=== PATIENT | female | born 1980 | race Hispanic/Latino ===

== ENCOUNTER 2018-07-27 21:42 | Emergency (ER) | payer SELFPAY ==
[2018-07-27 22:30] LABS: Urine Blood NEGATIVE (NEG); Urine Glucose NEGATIVE (NEG); Urine Protein NEGATIVE (NEG)
[2018-07-27] MEDS ORDERED: NA CHLORIDE 0.9% 1,000 ML ONE (22:45)
[2018-07-27 22:48] LABS: Absolute Lymphocytes (CBC) 1.4 K/uL (0.7-4.9); Absolute Monocytes 0.5 K/uL (0.1-1.3); Absolute Neutrophil 4.3 K/uL (1.8-8.0); Basophils % 0.8 % (0-1.3); Eosinophils % 1.1 % (0-4.4); Hematocrit 26.1 % (36.0-45.0); Lymphocytes % 21.4 % (15.3-44.8); MPV 8.4 fL (7.6-11.3); Monocytes % 8.5 % (3.3-12.3); RBC Red Blood Cell Count 3.62 M/uL (3.86-4.86)
[2018-07-27 22:58] LABS: ALT/SGPT 36 U/L (12-78); AST/SGOT 22 U/L (15-37); Albumin 3.9 g/dL (3.4-5.0); Alkaline Phosphatase 75 U/L (45-117); BUN Blood Urea Nitrogen 10 mg/dL (7-18); Bicarbonate 27 mmol/L (21-32); Bilirubin Direct < 0.1 mg/dL (0-0.2); Bilirubin Total 0.1 mg/dL (0.2-1.0); Glucose Level 89 mg/dL (74-106); Lipase 157 U/L (73-393); Potassium 3.5 mmol/L (3.5-5.1); Protein, Total 7.1 g/dL (6.4-8.2); Sodium Level 142 mmol/L (136-145)
[2018-07-27] MEDS ORDERED: HYDROCODONE/APAP 5/325 MG TAB ONE (23:15)
[2018-07-28] MEDS ORDERED: MORPHINE 2 MG/ML SYR ONE (02:52)
--- NOTE | 2018-07-28 03:14 | EDPHYS ---
Physician Documentation [facility] Name: Maribell Krishnamurthy Age: 37 yrs Sex: Female : 1980 Arrival Date: 07/27/2018 Time: 21:45 Bed 20 Private MD: ED Physician Mele Brooks HPI: 07/27 22:53 This 37 yrs old Female presents to ER via Ambulatory with complaints of Flank pkl Pain, Pain With Urination, Rectal Bleeding. 22:53 The patient complains of pain in the right flank. The pain radiates to the right lower pkl quadrant. Onset: The symptoms/episode began/occurred today. Associated signs and symptoms: Pertinent positives: blood in stool. 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 - Social history:: Smoking status: Patient/guardian denies using tobacco. - Ebola Screening: : No symptoms or risks identified at this time. ROS: 22:53 Eyes: Negative for injury, pain, redness, and discharge, ENT: Negative for injury, pkl pain, and discharge, Neck: Negative for injury, pain, and swelling, Cardiovascular: Negative for chest pain, palpitations, and edema, Respiratory: Negative for shortness of breath, cough, wheezing, and pleuritic chest pain, Abdomen/GI: Negative for abdominal pain, nausea, vomiting, diarrhea, and constipation. 22:53 Back: Positive for flank pain, on the right. 22:53 : Positive for urinary symptoms, burning with urination. 22:53 MS/extremity: Negative for acute changes. 22:53 Skin: Negative for rash. 22:53 Neuro: Negative for altered mental status. Exam: 22:53 Head/Face: Normocephalic, atraumatic. Eyes: Pupils equal round and reactive to light, pkl extra-ocular motions intact. Lids and lashes normal. Conjunctiva and sclera are non-icteric and not injected. Cornea within normal limits. Periorbital areas with no swelling, redness, or edema. ENT: Nares patent. No nasal discharge, no septal abnormalities noted. Tympanic membranes are normal and external auditory canals are clear. Oropharynx with no redness, swelling, or masses, exudates, or evidence of obstruction, uvula midline. Mucous membranes moist. Neck: Trachea midline, no thyromegaly or masses palpated, and no cervical lymphadenopathy. Supple, full range of motion without nuchal rigidity, or vertebral point tenderness. No Meningismus. Chest/axilla: Normal chest wall appearance and motion. Nontender with no deformity. No lesions are appreciated. Cardiovascular: Regular rate and rhythm with a normal S1 and S2. No gallops, murmurs, or rubs. Normal PMI, no JVD. No pulse deficits. Respiratory: Lungs have equal breath sounds bilaterally, clear to auscultation and percussion. No rales, rhonchi or wheezes noted. No increased work of breathing, no retractions or nasal flaring. Abdomen/GI: Soft, non-tender, with normal bowel sounds. No distension or tympany. No guarding or rebound. No evidence of tenderness throughout. Back: No spinal tenderness. No costovertebral tenderness. Full range of motion. Skin: Warm, dry with normal turgor. Normal color with no rashes, no lesions, and no evidence of cellulitis. MS/ Extremity: Pulses equal, no cyanosis. Neurovascular intact. Full, normal range of motion. Neuro: Awake and alert, GCS 15, oriented to person, place, time, and situation. Cranial nerves II-XII grossly intact. Motor strength 5/5 in all extremities. Sensory grossly intact. Cerebellar exam normal. Normal gait. 07/28 03:11 Abdomen/GI: Rectal exam: Stool: guaiac negative, the exam is chaperoned by the nurse. [facility] Vital Signs: 07/27 21:54 Pulse 100; Resp 18; Temp 97.6; Pulse Ox 98% on R/A; Weight 63.5 kg; Height 5 ft. 0 in. la1 (152.40 cm); 21:55 BP 135 / 85; la1 23:01 BP 120 / 79; Pulse 87; Resp 16 S; Pulse Ox 98% on R/A; jd3 07/28 00:30 BP 112 / 73; Pulse 80; Resp 16 S; Pulse Ox 99% on R/A; jd3 02:50 BP 121 / 64; Pulse 87; Resp 16 S; Pulse Ox 98% on R/A; jd3 07/27 21:54 Body Mass Index 27.34 (63.50 kg, 152.40 cm) la1 MDM: 07/27 21:58 Patient medically screened. pkl 07/28 03:11 Data reviewed: vital signs, nurses notes, lab test result(s), radiologic studies, CT pkl scan. 03:15 ED course: Patient advised to follow up with [facility] regarding blood in stool. pkl Advised to take iron pills for her anemia. Patient understood instructions. 07/27 22:15 Order name: Basic Metabolic Panel; Complete Time: 00:23 pkl 07/27 22:15 Order name: CBC with Diff; Complete Time: 00:23 pkl 07/27 22:15 Order name: Creatinine for Radiology; Complete Time: 00:23 pkl 07/27 22:15 Order name: Hepatic Function; Complete Time: 00:23 pkl 07/27 22:15 Order name: Lipase; Complete Time: 00:23 pkl 07/27 22:26 Order name: Urine Dipstick--Ancillary (enter results); Complete Time: 22:51 [facility] 07/27 22:15 Order name: IV Saline Lock; Complete Time: 22:32 pk 07/27 22:15 Order name: Labs collected and sent; Complete Time: 22:32 pk 07/27 22:26 Order name: Urine --Ancillary (enter results) [facility] 07/28 00:24 Order name: CT Abd/Pelvis - W/Contrast pkl Administered Medications: 07/27 22:37 Drug: NS 0.9% 1000 ml Route: IV; Rate: 1000 ml; Site: right antecubital; [facility] 07/28 01:51 Follow up: Response: No adverse reaction; IV Status: Completed infusion [facility] 07/27 23:06 Drug: [place] 5 mg-325 mg 1 tabs Route: PO; jd3 07/28 01:50 Follow up: Response: No adverse reaction j 02:45 Drug: morphine 2 mg Route: IVP; Site: right antecubital; jd3 03:30 Follow up: Response: No adverse reaction j Disposition: 07/28/18 03:14 Discharged to Home. Impression: Right flank pain. Rectal bleeding. Anemia. - Condition is Stable. - Prescriptions for Tylenol- Codeine #3 300-30 mg Oral Tablet - take 1 tablet by ORAL route every 8 hours As needed; 15 tablet. - Medication Reconciliation Form, Thank You Letter, Antibiotic Education, Prescription Opioid Use form. - Follow up: Samuel Montoya MD; When: 2 - 3 days; Reason: Re-evaluation by your physician. - Problem is new. - Symptoms have improved. Signatures: Dispatcher [employer] EDWY Mele Brooks MD MD pkl Basilio Gannon RN RN la1 Derek Faye RN RN jd3 Corrections: (The following items were deleted from the chart) 03:32 03:14 07/28/2018 03:14 Discharged to Home. Impression: Right flank pain. Rectal jd3 bleeding. Anemia. Condition is Stable. Forms are Medication Reconciliation Form, Thank You Letter, Antibiotic Education, Prescription Opioid Use. Follow up: Samuel Montoya; When: 2 - 3 days; Reason: Re-evaluation by your physician. Problem is new. Symptoms have improved. pkl
--- NOTE | 2018-07-28 03:14 | ER ---
Nurse's Notes [facility] Name: Maribell Krishnamurthy Age: 37 yrs Sex: Female : 1980 Arrival Date: 07/27/2018 Time: 21:45 Bed 20 Private MD: Diagnosis: Right flank pain. Rectal bleeding. Anemia Presentation: 07/27 21:51 Presenting complaint: Patient states: Sharp pain right above my right hip and it renteria la1 when I pee. I am also having painless bright red blood in my stool, I have had to have a transfusion due to hemmoroids before. Pt denies vomiting/diarrhea. Transition of care: patient was not received from another setting of care. Onset of symptoms was July 27, 2018. Risk Assessment: Do you want to hurt yourself or someone else? Patient reports no desire to harm self or others. Initial Sepsis Screen: Does the patient meet any 2 criteria?. Initial Sepsis Screen: Does the patient have a suspected source of infection? No. Patient's initial sepsis screen is negative. Care prior to arrival: None. 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 - Social history:: Smoking status: Patient/guardian denies using tobacco. - Ebola Screening: : No symptoms or risks identified at this time. Screenin:56 Abuse screen: Denies threats or abuse. Nutritional screening: No deficits noted. jd3 Tuberculosis screening: No symptoms or risk factors identified. Fall Risk Ambulatory Aid- None/Bed Rest/Nurse Assist (0 pts). Gait- Normal/Bed Rest/Wheelchair (0 pts) Mental Status- Oriented to own ability (0 pts). Total Tejada Fall Scale indicates No Risk (0-24 pts). Assessment: 22:05 General: Appears in no apparent distress. uncomfortable, Behavior is calm, cooperative, jd3 appropriate for age. Pain: Complains of pain in anterior aspect of right lateral abdomen and right lower quadrant Quality of pain is described as aching. Neuro: Level of Consciousness is awake, alert, obeys commands, Oriented to person, place, time, situation. Cardiovascular: Denies chest pain, Capillary refill < 3 seconds Patient's skin is warm and dry. Respiratory: Airway is patent Respiratory effort is even, unlabored, Respiratory pattern is regular, symmetrical, Denies shortness of breath. GI: Abdomen is round non-distended, Bowel sounds present X 4 quads. Abd is soft and non tender X 4 quads. Reports lower abdominal pain, bloody stool, Patient currently denies nausea, vomiting. : Reports burning with urination. EENT: No signs and/or symptoms were reported regarding the EENT system. Derm: Skin is intact, Skin is dry, Skin is normal, Skin temperature is warm. Musculoskeletal: Circulation, motion, and sensation intact. Range of motion: intact in all extremities. 23:02 Reassessment: Patient appears in no apparent distress at this time. Patient and/or jd3 family updated on plan of care and expected duration. Pain level reassessed. Patient is alert, oriented x 3, equal unlabored respirations, skin warm/dry/pink. 07/28 00:15 Reassessment: Patient appears in no apparent distress at this time. Patient and/or jd3 family updated on plan of care and expected duration. Pain level reassessed. Patient is alert, oriented x 3, equal unlabored respirations, skin warm/dry/pink. 00:30 Reassessment: Patient appears in no apparent distress at this time. Patient and/or jd3 family updated on plan of care and expected duration. Pain level reassessed. Patient is alert, oriented x 3, equal unlabored respirations, skin warm/dry/pink. Patient states feeling better. 01:52 Reassessment: Patient appears in no apparent distress at this time. Patient and/or jd3 family updated on plan of care and expected duration. Pain level reassessed. Patient is alert, oriented x 3, equal unlabored respirations, skin warm/dry/pink. Patient states feeling better. 02:50 Reassessment: Patient appears in no apparent distress at this time. Patient and/or jd3 family updated on plan of care and expected duration. Pain level reassessed. Patient is alert, oriented x 3, equal unlabored respirations, skin warm/dry/pink. 03:29 Reassessment: Patient appears in no apparent distress at this time. Patient and/or jd3 family updated on plan of care and expected duration. Pain level reassessed. Patient is alert, oriented x 3, equal unlabored respirations, skin warm/dry/pink. pt reported understanding of discharge instructions. Patient states feeling better. Vital Signs: 07/27 21:54 Pulse 100; Resp 18; Temp 97.6; Pulse Ox 98% on R/A; Weight 63.5 kg; Height 5 ft. 0 in. la1 (152.40 cm); 21:55 BP 135 / 85; la1 23:01 BP 120 / 79; Pulse 87; Resp 16 S; Pulse Ox 98% on R/A; jd3 07/28 00:30 BP 112 / 73; Pulse 80; Resp 16 S; Pulse Ox 99% on R/A; jd3 02:50 BP 121 / 64; Pulse 87; Resp 16 S; Pulse Ox 98% on R/A; jd3 07/27 21:54 Body Mass Index 27.34 (63.50 kg, 152.40 cm) la1 ED Course: 07/27 21:45 Patient arrived in ED. am2 21:53 Triage completed. la1 21:53 Arm band placed on left wrist. la1 21:55 Derek Faye, DANETTE is Primary Nurse. jd3 21:57 Patient has correct armband on for positive identification. Bed in low position. Call jd3 light in reach. Side rails up X 1. Adult w/ patient. 21:58 Mele Brooks MD is Attending Physician. pkl 22:30 Inserted saline lock: 20 gauge in right antecubital area, using aseptic technique. jd3 Blood collected. 07/28 02:[address] via wheelchair. kw1 02:16 CT completed. Patient tolerated procedure well. Patient moved back from CT. kw1 02:41 CT Abd/Pelvis - W/Contrast In Process Unspecified. EDMS 03:11 Served as a neuropsychiatrist during rectal exam. aa1 03:13 Samuel Montoya MD is Referral Physician. pkl 03:29 IV discontinued, intact, bleeding controlled, No redness/swelling at site. Pressure jd3 dressing applied. Administered Medications: 07/27 22:37 Drug: NS 0.9% 1000 ml Route: IV; Rate: 1000 ml; Site: right antecubital; jd3 07/28 01:51 Follow up: Response: No adverse reaction; IV Status: Completed infusion jd3 07/27 23:06 Drug: [place] 5 mg-325 mg 1 tabs Route: PO; jd3 07/28 01:50 Follow up: Response: No adverse reaction jd3 02:45 Drug: morphine 2 mg Route: IVP; Site: right antecubital; jd3 03:30 Follow up: Response: No adverse reaction jd3 Outcome: 03:14 Discharge ordered by . bernard 03:28 Discharged to home ambulatory, with family. jd3 03:28 Condition: stable 03:28 Discharge instructions given to patient, Instructed on discharge instructions, follow up and referral plans. medication usage, Demonstrated understanding of instructions, follow-up care, medications, Prescriptions given X 1. 03:32 Patient left the ED. jd3 Signatures: Dispatcher [employer] EDRaegan Freitas, RN RN aa1 Mele Brooks MD MD pkl Attema, Lee, RN RN la1 Moreno, Amanda am2 Davies, Jonathon, RN RN jd3 Jacy hCan kw1
[2018-07-28 03:41] VITALS: TEMP 97.6
[2018-07-28 03:46] VITALS: BP 121/64; O2SAT 98
--- NOTE | 2018-07-29 11:34 | RAD REPORT ---
EXAM DESCRIPTION: CT - Abdomen Pelvis W Contrast - 07/28/2018 6:43 am CLINICAL HISTORY: The patient is 37 years old and is Female; ABD PAIN TECHNIQUE: Axial computed tomography images of the abdomen and pelvis with intravenous contrast. Sagittal and co aura reformatted images were created and reviewed. This CT exam was performed using one or more of t he following dose reduction techniques: Automated exposure control, adjustment of the mA and/or kV ac cording to patient size, and/or use of iterative reconstruction technique. COMPARISON: CT of the abdomen and pelvis February 09, 2017. FINDINGS: Lung bases: Unremarkable. No mass. No consolidation. ABDOMEN: Liver: Unremarkable. No mass. Gallbladder and bile ducts: The gallbladder is contracted. Pancreas: O ductal dilation. No mass. Spleen: Unremarkable. Adrenals: Unremarkable. No mass. Kidneys and ureters:Unremarkable. No solid mass. No hydronephrosis. Stomach and bowel: The stomach is distended with food contents. The small bowel is normal in caliber. Stool is present throughout the colon. There is no mucosal thickening or evidence of bowel obstructi on. PELVIS: Appendix:The appendix is normal in caliber without surrounding inflammation. Bladder: Unremarkable. No mass. Reproductive: The ovaries are unremarkable. 2 small hyperattenuating foci are noted within the inferi or aspect of the vaginal canal, the largest of which measures 9 mm. These were present on prior exam and may be secondary to tiny cysts with sebaceous contents. ABDOMEN and PELVIS: Intraperitoneal space: Free fluid is present within the pelvis which is likely physiologic. No free air. Bones/joints: No acute fracture. Soft tissues: Unremarkable. Vasculature:Unremarkable. No abdominal aortic aneurysm. Lymph nodes: Unremarkable. No enlarged lymph nodes. IMPRESSION: No acute findings on this contrasted CT of the abdomen and pelvis to explain the patient 's symptoms. 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 The interpreting radiologist is f ully responsible for the content of the report.
== END 2018-07-28 03:32 | disposition home or self-care (01) ==
LOC: ER 21:42
DX: R10.9 Unspecified abdominal pain (principal); K62.5 Hemorrhage of anus and rectum; R30.0 Dysuria; D64.9 Anemia, unspecified
CPT/HCPCS: 36415; 74177; 80048; 80076; 81003; 81025; 83690; 85025; 96361; 96374; 99284; J2270; J7030; Q9967

== ENCOUNTER 2019-06-26 04:08 | Emergency (ER) | payer MEDICAID, SELFPAY ==
--- OUTSIDE RECORDS SUMMARY | 2019-06-26 04:10 | XMS REPORT ---
:1980 [facility] Address [facility] [place] [address] [place] [id number] Care Team Providers Name Role Phone Unavailable Unavailable Unavailable Problems This patient has no known problems. Allergies, Adverse Reactions, Alerts This patient has no known allergies or adverse reactions. Medications This patient has no known medications.
[2019-06-26] MEDS ORDERED: KETOROLAC 30 MG/ML INJ ONE (04:41)
[2019-06-26] MEDS ORDERED: PHENAZOPYRIDINE 100MG TAB PO ONE (04:41)
[2019-06-26] MEDS ORDERED: NITROFURAN MACRO 100 MG CAP PO ONE (04:41)
--- NOTE | 2019-06-26 04:44 | ER ---
Nurse's Notes [facility] Name: Maribell Krishnamurthy Age: 38 yrs Sex: Female : 1980 Arrival Date: 06/26/2019 Time: 04:09 Bed 8 Private MD: Diagnosis: Urinary tract infection, site not specified Presentation: 06/26 04:29 Presenting complaint: Patient states: Pain with urination that began yesterday, pain lp1 worse this morning; States taking Advil with no relief; States similar symptoms with previous UTI, intermittent pain to RLQ. Transition of care: patient was not received from another setting of care. Onset of symptoms was June 25, 2019. Risk Assessment: Do you want to hurt yourself or someone else? Patient reports no desire to harm self or others. Initial Sepsis Screen: Does the patient meet any 2 criteria? No. Patient's initial sepsis screen is negative. Does the patient have a suspected source of infection? No. Patient's initial sepsis screen is negative. Care prior to arrival: None. 04:29 Method Of Arrival: Ambulatory 1 04:29 Acuity: NUSRAT 3 lp1 04:32 Presenting complaint:. Transition of care: patient was not received from another setting of care. Onset of symptoms was June 26, 2019. Risk Assessment: Do you want to hurt yourself or someone else? Patient reports no desire to harm self or others. Initial Sepsis Screen: Does the patient meet any 2 criteria? No. Patient's initial sepsis screen is negative. Does the patient have a suspected source of infection? No. Patient's initial sepsis screen is negative. Care prior to arrival: None. 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 - Social history:: Smoking status: Patient/guardian denies using tobacco. - Ebola Screening: : No symptoms or risks identified at this time. Screenin:32 Abuse screen: Denies threats or abuse. Nutritional screening: No deficits noted. vc Tuberculosis screening: No symptoms or risk factors identified. Fall Risk None identified. Assessment: 04:33 General: Appears in no apparent distress. uncomfortable, Behavior is calm, cooperative, vc appropriate for age. Pain: Complains of pain in Pain with urination. 04:50 General:. Neuro: Level of Consciousness is awake, alert, obeys commands, Oriented to vc person, place, time. Cardiovascular: Capillary refill < 3 seconds. Respiratory: Airway is patent Respiratory effort is even, unlabored. GI: No signs and/or symptoms were reported involving the gastrointestinal system. : Reports burning with urination, since last week, the pain became worse today. "The pain is so bad that I'm afraid to go pee". EENT: No signs and/or symptoms were reported regarding the EENT system. Derm: Skin is intact, is healthy with good turgor. Musculoskeletal: Circulation, motion, and sensation intact. Range of motion: intact in all extremities. Vital Signs: 04:33 BP 155 / 95; Pulse 71; Resp 18; Temp 97.5(O); Pulse Ox 100% on R/A; Weight 67.13 kg lp1 (R); Height 5 ft. 0 in. (152.40 cm); Pain 10/10; 04:33 Body Mass Index 28.90 (67.13 kg, 152.40 cm) lp1 ED Course: 04:09 Patient arrived in ED. ds1 04:24 Ga Aguila MD is Attending Physician. tw4 04:26 Elmira Trinh RN is Primary Nurse. vc 04:33 Triage completed. lp1 04:34 Arm band placed on. vc 04:36 Patient has correct armband on for positive identification. Placed in gown. lp1 04:53 No provider procedures requiring assistance completed. Patient did not have IV access vc during this emergency room visit. Administered Medications: 04:49 Drug: TORadol 60 mg Route: IM; Site: right deltoid; vc 05:10 Follow up: Response: No adverse reaction; Pain is decreased vc 04:50 Drug: Pyridium 200 mg Route: PO; vc 05:10 Follow up: Response: No adverse reaction vc 04:50 Drug: Nitrofurantoin 100 mg Route: PO; vc 05:10 Follow up: Response: No adverse reaction vc Outcome: 04:43 Discharge ordered by . teri 05:13 Discharged to home ambulatory. vc 05:13 Condition: improved 05:13 Discharge instructions given to patient, Instructed on discharge instructions, follow up and referral plans. medication usage, Demonstrated understanding of instructions, follow-up care, medications, Prescriptions given X 3. 05:14 Patient left the ED. jb4 Addendum: 06/29/2019 09:28 Addendum: Culture Results: Positive urine culture. No further action required. Bacteria s s sensitive to prescribed antibiotic. Signatures: Vale Arrington ds1 Zeny Min, RN RN ss Susan Urias RN RN lp1 Haroon Morgan RN RN jb4 Ga Aguila MD MD tw4 Elmira Trinh RN RN vc Corrections: (The following items were deleted from the chart) 06/26 04:33 04:32 Acuity: NUSRAT 4 vc vc 04:52 04:33 General: Appears in no apparent distress. uncomfortable, Behavior is calm, vc cooperative, appropriate for age, vc
--- NOTE | 2019-06-26 04:44 | EDPHYS ---
Physician Documentation [facility] Name: Maribell Krishnamurthy Age: 38 yrs Sex: Female : 1980 Arrival Date: 06/26/2019 Time: 04:09 Bed 8 Private MD: ED Physician Ga Aguila HPI: 06/26 04:38 This 38 yrs old Female presents to ER via Ambulatory with complaints of tw4 Urinary Frequency, Pain With Urination. 04:38 The patient presents with urinary symptoms, dysuria, frequency. Modifying factors: The tw4 symptoms are alleviated by nothing, the symptoms are aggravated by nothing. Severity of symptoms: 1 week(s) ago, and became worse yesterday, At their worst the symptoms were moderate. The patient has not experienced similar symptoms in the past. 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 - Social history:: Smoking status: Patient/guardian denies using tobacco. - Ebola Screening: : No symptoms or risks identified at this time. ROS: 04:38 Positive for urinary symptoms, flank pain, urinary frequency, Negative for flank tw4 pain, burning with urination, difficulty urinating, bladder incontinence, foul smelling urine, vaginal bleeding, vaginal discharge, vaginal itching, menstrual abnormality. 04:38 Constitutional: Negative for fever, chills, and weight loss, Eyes: Negative for injury, pain, redness, and discharge, ENT: Negative for injury, pain, and discharge, Neck: Negative for injury, pain, and swelling, Cardiovascular: Negative for chest pain, palpitations, and edema, Respiratory: Negative for shortness of breath, cough, wheezing, and pleuritic chest pain, Abdomen/GI: Negative for abdominal pain, nausea, vomiting, diarrhea, and constipation, Back: Negative for injury and pain, MS/Extremity: Negative for injury and deformity, Skin: Negative for injury, rash, and discoloration, Neuro: Negative for headache, weakness, numbness, tingling, and seizure. Exam: 04:38 Constitutional: This is a well developed, well nourished patient who is awake, alert, tw4 and in no acute distress. Head/Face: Normocephalic, atraumatic. Chest/axilla: Normal chest wall appearance and motion. Nontender with no deformity. No lesions are appreciated. Cardiovascular: Regular rate and rhythm with a normal S1 and S2. No gallops, murmurs, or rubs. Normal PMI, no JVD. No pulse deficits. Respiratory: Lungs have equal breath sounds bilaterally, clear to auscultation and percussion. No rales, rhonchi or wheezes noted. No increased work of breathing, no retractions or nasal flaring. Abdomen/GI: Soft, non-tender, with normal bowel sounds. No distension or tympany. No guarding or rebound. No evidence of tenderness throughout. Back: No spinal tenderness. No costovertebral tenderness. Full range of motion. MS/ Extremity: Pulses equal, no cyanosis. Neurovascular intact. Full, normal range of motion. Neuro: Awake and alert, GCS 15, oriented to person, place, time, and situation. Cranial nerves II-XII grossly intact. Motor strength 5/5 in all extremities. Sensory grossly intact. Cerebellar exam normal. Normal gait. Vital Signs: 04:33 BP 155 / 95; Pulse 71; Resp 18; Temp 97.5(O); Pulse Ox 100% on R/A; Weight 67.13 kg lp1 (R); Height 5 ft. 0 in. (152.40 cm); Pain 10/10; 04:33 Body Mass Index 28.90 (67.13 kg, 152.40 cm) lp1 MDM: 04:24 Patient medically screened. tw4 04:38 Data reviewed: vital signs, nurses notes. Data reviewed: lab test result(s), tw4 urinalysis, bacteruria. Counseling: I had a detailed discussion with the patient and/or guardian regarding: the historical points, exam findings, and any diagnostic results supporting the discharge/admit diagnosis. Medication response: Toradol relieved patient's pain. The symptoms have resolved. Response to treatment: and as a result, I will discharge patient. Special discussion: I discussed with the patient/guardian in detail that at this point there is no indication for admission to the hospital. It is understood, however, that if the symptoms persist or worsen the patient needs to return immediately for re-evaluation. 06/26 04:22 Order name: Urine Microscopic Only 06/26 04:22 Order name: Urine Culture 06/26 04:24 Order name: Urine Dipstick--Ancillary (enter results) [facility] 06/26 04:24 Order name: Urine --Ancillary (enter results) [facility] 06/26 04:24 Order name: Urine Dipstick-Ancillary (obtain specimen); Complete Time: 04:24 [facility] Administered Medications: 04:49 Drug: TORadol 60 mg Route: IM; Site: right deltoid; vc 05:10 Follow up: Response: No adverse reaction; Pain is decreased vc 04:50 Drug: Pyridium 200 mg Route: PO; vc 05:10 Follow up: Response: No adverse reaction vc 04:50 Drug: Nitrofurantoin 100 mg Route: PO; vc 05:10 Follow up: Response: No adverse reaction vc Disposition: 06/26/19 04:43 Discharged to Home. Impression: Urinary tract infection, site not specified. - Condition is Stable. - Discharge Instructions: Urinary Tract Infection, Adult, [id number]. - Prescriptions for Pyridium 200 mg Oral Tablet - take 1 tablet by ORAL route every 8 hours for 3 days; 9 tablet. Zofran 4 mg Oral Tablet - take 1 tablet by ORAL route every 12 hours As needed; 20 tablet. Macrobid 100 mg Oral Capsule - take 1 capsule by ORAL route every 12 hours for 10 days; 20 capsule. - Medication Reconciliation Form, Thank You Letter, Antibiotic Education, Prescription Opioid Use form. - Follow up: Private Physician; When: Upon discharge from the Emergency Department; Reason: Recheck today's complaints, Continuance of care. - Problem is new. - Symptoms have improved. Signatures: Dispatcher [employer] EDMS Susan Urias RN RN lp1 Haroon Morgan RN RN jb4 Ga Aguila MD MD tw4 Argelia Uribe mw2 Elmira Trinh RN RN vc Corrections: (The following items were deleted from the chart) 05:14 04:43 06/26/2019 04:43 Discharged to Home. Impression: Urinary tract infection, site jb4 not specified. Condition is Stable. Forms are Medication Reconciliation Form, Thank You Letter, Antibiotic Education, Prescription Opioid Use. Follow up: Private Physician; When: Upon discharge from the Emergency Department; Reason: Recheck today's complaints, Continuance of care. Problem is new. Symptoms have improved. tw4
[2019-06-26 04:54] LABS: Urine Blood 3+ (NEG); Urine Glucose NEGATIVE (NEG); Urine Protein 2+ (NEG); Urine Specific Gravity 1.025 (1.005-1.030)
[2019-06-26 05:03] LABS: Urine Bacteria >50 /HPF (<20); Urine Culture Reflex Order NOT NEEDED; Urine RBC >50 /HPF (NONE SEEN)
[2019-06-26 05:31] VITALS: BP 155/95; TEMP 97.5; O2SAT 100
== END 2019-06-26 05:14 | disposition home or self-care (01) ==
LOC: ER 04:08
DX: N39.0 Urinary tract infection, site not specified (principal); F41.9 Anxiety disorder, unspecified
CPT/HCPCS: 81003; 81015; 81025; 87077; 87086; 87088; 87186; 96372; 99283

== ENCOUNTER 2019-07-08 11:46 | Inpatient (IN) | payer MEDICAID, SELFPAY ==
--- OUTSIDE RECORDS SUMMARY | 2019-07-08 11:48 | XMS REPORT ---
:1980 [facility] [place] [address] [place] [id number] Care Team Providers Name Role Phone Unavailable Unavailable Unavailable Problems This patient has no known problems. Allergies, Adverse Reactions, Alerts This patient has no known allergies or adverse reactions. Medications This patient has no known medications.
[2019-07-08 12:33] LABS: Urine Blood 3+ (NEG); Urine Glucose TRACE (NEG); Urine Protein NEGATIVE (NEG); Urine Specific Gravity <1.005 (1.005-1.030)
--- NOTE | 2019-07-08 12:43 | EDPHYS ---
Physician Documentation [facility] Name: Maribell Krishnamurthy Age: 38 yrs Sex: Female : 1980 Arrival Date: 07/08/2019 Time: 11:47 Bed 23 Private MD: ED Physician Catrachito Greco HPI: 07/08 13:10 This 38 yrs old Female presents to ER via Unassigned with complaints of Pain kb With Urination, Back Pain. 13:10 The patient presents with flank pain, on the left, urinary symptoms, dysuria, kb frequency. Onset: The symptoms/episode began/occurred last week. Modifying factors: The symptoms are alleviated by nothing, the symptoms are aggravated by urinating. Associated signs and symptoms: Pertinent positives: dysuria, urinary frequency. Severity of symptoms: At their worst the symptoms were moderate, in the emergency department the symptoms are unchanged. The patient has experienced similar episodes in the past, a few times. The patient has been recently seen at the [facility] Emergency Department. Pt reports dysuria, frequency and flank pain. Reports she was here for similar symptoms a little over a week ago and was diagnosed with a UTI. States she completed the antibiotics, but is having worse symptoms now. States the only relief she got was when she took pyridium.. 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 - Coronavirus screen:: The patient has NOT traveled to [place], [place], or [place] in the past 14 days. The patient has NOT had contact with known/suspected case of Coronavirus? Proceed with normal triage procedures. - Social history:: Smoking status: Patient denies any tobacco usage or history of. - Ebola Screening: : No symptoms or risks identified at this time. ROS: 13:09 Constitutional: Negative for fever, chills, and weight loss, Neck: Negative for injury, kb pain, and swelling, Cardiovascular: Negative for chest pain, palpitations, and edema, Respiratory: Negative for shortness of breath, cough, wheezing, and pleuritic chest pain, Abdomen/GI: Negative for abdominal pain, nausea, vomiting, diarrhea, and constipation, MS/Extremity: Negative for injury and deformity, Skin: Negative for injury, rash, and discoloration, Neuro: Negative for headache, weakness, numbness, tingling, and seizure. 13:09 : Positive for urinary symptoms, flank pain, urinary frequency, burning with urination. Exam: 13:08 Constitutional: This is a well developed, well nourished patient who is awake, alert, kb and in no acute distress. Head/Face: Normocephalic, atraumatic. Neck: Trachea midline, no thyromegaly or masses palpated, and no cervical lymphadenopathy. Supple, full range of motion without nuchal rigidity, or vertebral point tenderness. No Meningismus. Chest/axilla: Normal chest wall appearance and motion. Nontender with no deformity. No lesions are appreciated. Cardiovascular: Regular rate and rhythm with a normal S1 and S2. No gallops, murmurs, or rubs. Normal PMI, no JVD. No pulse deficits. Respiratory: Lungs have equal breath sounds bilaterally, clear to auscultation and percussion. No rales, rhonchi or wheezes noted. No increased work of breathing, no retractions or nasal flaring. Back: No spinal tenderness. No costovertebral tenderness. Full range of motion. Skin: Warm, dry with normal turgor. Normal color with no rashes, no lesions, and no evidence of cellulitis. MS/ Extremity: Pulses equal, no cyanosis. Neurovascular intact. Full, normal range of motion. Neuro: Awake and alert, GCS 15, oriented to person, place, time, and situation. Cranial nerves II-XII grossly intact. Motor strength 5/5 in all extremities. Sensory grossly intact. Cerebellar exam normal. Normal gait. 13:08 Abdomen/GI: Inspection: abdomen appears normal, Bowel sounds: normal, Palpation: soft, in all quadrants, mild abdominal tenderness, in the suprapubic area. Vital Signs: 12:30 BP 129 / 89; Pulse 90; Resp 18; Temp 97.8(O); Pulse Ox 100% on R/A; Pain 10/10; vc 13:30 BP 117 / 83; Pulse 90; Resp 16; Pulse Ox 100% on R/A; vc 14:30 BP 123 / 71; Pulse 90; Resp 16; Pulse Ox 100% on R/A; vc 15:15 BP 128 / 97; Pulse 95; Resp 18; Pulse Ox 99% on R/A; vc 16:15 BP 120 / 84; Pulse 85; Resp 15; Pulse Ox 100% on R/A; vc MDM: 12:02 Patient medically screened. jannie 12:35 Data reviewed: vital signs, nurses notes. Data interpreted: Pulse oximetry: on room air kb is 100 %. Interpretation: normal. Counseling: I had a detailed discussion with the patient and/or guardian regarding: the historical points, exam findings, and any diagnostic results supporting the discharge/admit diagnosis, lab results, the need for further work-up and treatment in the hospital. ED course: Reviewed culture report from previous visit on 06/26/19. Confirmed ESBL. Will admit for IV meropenem due to ESBL . 07/08 12:11 Order name: Urine Dipstick--Ancillary (enter results); Complete Time: 12:34 bd 07/08 12:28 Order name: Urine Microscopic Only; Complete Time: 13:20 kb 07/08 12:34 Order name: CBC with Diff; Complete Time: 14:12 kb 07/08 12:34 Order name: Basic Metabolic Panel; Complete Time: 13:41 kb 07/08 12:38 Order name: Test, Serum; Complete Time: 13:48 kb 07/08 12:45 Order name: CBC with Automated Diff EDMS 07/08 12:45 Order name: CBC with Automated Diff EDMS 07/08 12:45 Order name: CBC with Automated Diff EDMS 07/08 12:45 Order name: Comprehensive Metabolic Panel EDMS 07/08 12:46 Order name: Comprehensive Metabolic Panel EDMS 07/08 12:46 Order name: Comprehensive Metabolic Panel EDMS 07/08 13:11 Order name: Urine Culture EDMS 07/08 14:10 Order name: CBC Smear Scan; Complete Time: 14:12 EDMS 07/08 11:53 Order name: Urine Dipstick-Ancillary (obtain specimen); Complete Time: 12:09 kb 07/08 11:54 Order name: Urine Test (obtain specimen); Complete Time: 12:09 kb 07/08 12:34 Order name: IV Start; Complete Time: 12:46 kb 07/08 12:45 Order name: CONS Pharmacy Consult EDMS 07/08 12:45 Order name: Regular EDMS Administered Medications: 13:25 Drug: Meropenem 1 grams Route: IV; Rate: calculated rate; Site: right antecubital; vc 13:25 Drug: TORadol - Ketorolac 15 mg Route: IVP; Site: right antecubital; vc Disposition: 17:07 Co-signature as Attending Physician, Catrachito Greco MD I agree with the assessment and jannie plan of care. Disposition: 07/08/19 12:42 Hospitalization ordered by Aneta Graves for Inpatient Admission. Preliminary diagnosis is Urinary tract infection, site not specified - ESBL confirmed - Failed outpatient treatment. - Bed requested for Telemetry/MedSurg (Inpatient). - Status is Inpatient Admission. vc - Condition is Stable. - Problem is new. - Symptoms are unchanged. UTI on Admission? Yes Signatures: Dispatcher [employer] EDMS Luca Bibi, PEARLER-C PEARLER-Amara Chen RN Catrachito Serrano MD MD cha Calcote, Vanessa, RN RN vc Corrections: (The following items were deleted from the chart) 13: 12:42 Hospitalization Ordered by Aneta Graves MD for Inpatient Admission. Preliminary dw diagnosis is Urinary tract infection, site not specified - ESBL confirmed - Failed outpatient treatment. Bed requested for Telemetry/MedSurg (Inpatient). Status is Inpatient Admission. Condition is Stable. Problem is new. Symptoms are unchanged. UTI on Admission? Yes. kb 16:31 13:20 07/08/2019 12:42 Hospitalization Ordered by Aneta Graves MD for Inpatient vc Admission. Preliminary diagnosis is Urinary tract infection, site not specified - ESBL confirmed - Failed outpatient treatment. Bed requested for Telemetry/MedSurg (Inpatient). Status is Inpatient Admission. Condition is Stable. Problem is new. Symptoms are unchanged. UTI on Admission? Yes. dw
--- NOTE | 2019-07-08 12:47 | P.HP ---
Certification for Inpatient With expected LOS: >2 Midnights Practitioner: I am a practitioner with admitting privileges, knowledge of patient current condition, hospital course, and medical plan of care. Services: Services provided to patient in accordance with Admission requirements found in Title 42 Section 412.3 of the Code of Federal Regulations Patient History Date of Service: 07/08/19 Reason for admission: Suprapubic pain History of Present Illness: Ms Krishnamurthy is 38-year-old female with a history of hemorrhoids and migraine who presented to the ER on 06/26/2019 with complaints of abdominal pain. Patient was found to have urinary tract infection and discharged on Macrobid for 10 days. Patient has completed the antibiotics and still remains with dysuria, increased urinary frequency, suprapubic abdominal pain that has remained constant, 10 on a 10 out was intensity. She has developed lower back pain more in the left side. She denies any fevers; however, endorses chills. Given the straining for urination, she has noticed that her hemorrhoids are now bulging and with brbpr. Allergies No Known Allergies Allergy (Verified 12/27/11 01:39) Home medications list reviewed: No Home Medications: Ascorbic Acid [Vitamin C*] 500 mg PO SEECOM 02/09/17 Methenamine Hippurate [Hiprex] 1 gm PO DAILY 02/09/17 Nitrofuran Macro [Macrobid*] 100 mg PO BID #20 cap 02/12/17 - Past Medical/Surgical History Diabetic: No -: UTI -: migraines -: Denies - Family History Father -: Hypertension, Diabetes, Kidney disease Mother Notes: high cholesterol - Social History Smoking Status: Never smoker Alcohol use: No CD- Drugs: No Caffeine use: No Review of Systems 10-point ROS is otherwise unremarkable General: Chills Gastrointestinal: Abdominal Pain, Hematochezia Genitourinary: Dysuria, Frequency, Urgency Physical Examination - Physical Exam General: Alert, In no apparent distress HEENT: Atraumatic, PERRLA, Mucous membr. moist/pink, EOMI, Sclerae nonicteric Neck: Supple, 2+ carotid pulse no bruit, No LAD, Without JVD or thyroid abnormality Respiratory: Clear to auscultation bilaterally, Normal air movement Cardiovascular: Regular rate/rhythm, Normal S1 S2 Gastrointestinal: Normal bowel sounds, Tenderness (Suprapubic tenderness) Musculoskeletal: No tenderness Integumentary: No rashes Neurological: Normal gait, Normal speech, Normal strength at 5/5 x4 extr, Normal tone, Normal affect Lymphatics: No axilla or inguinal lymphadenopathy Urinary: Other (L Lower back tenderness, NO CVA tenderness) - Studies Laboratory Tests 07/08/19 07/08/19 07/08/19 12:11 12:12 12:34 WBC RBC Hgb Hct Plt Count Sodium 137 Potassium 3.5 BUN 6 L Creatinine 0.65 Urine pH 5.0 Ur Specific [place] <1.005 L Urine Ketones Negative Urine Blood 3+ H Urine Nitrite Positive H Ur Leukocyte Esterase 3+ H Urine RBC <5 Urine WBC 20-50 H Ur Squamous Epith Cells <5 Urine Bacteria <20 07/08/19 12:43 WBC 7.3 RBC 4.65 Hgb 10.0 L Hct 31.6 L Plt Count 299 Sodium Potassium BUN Creatinine Urine pH Ur Specific [place] Urine Ketones Urine Blood Urine Nitrite Ur Leukocyte Esterase Urine RBC Urine WBC Ur Squamous Epith Cells Urine Bacteria Microbiology Data (last 24 hrs): Microbiology 06/26/19 04:20 Clean Catch Urine [place] Count - Final 06/26/19 04:20 Clean Catch Urine - Final Escherichia Coli Esbl >100,000 CFU/ML. Assessment and Plan - Plan Ms Krishnamurthy is 38-year-old female with recurrent urinary tract infection presenting with complicated UTI. #Urinary tract infection-urine culture from 06/26/2019 with E coli ESBL. This is probably why nitrofurantoin given was not effective. -meropenem initiated. -blood cultures drawn, will follow report. -Pain control. Monitor for fever. -cannot rule out pyelonephritis #History of chronic migraines-currently asymptomatic. -Monitor closely. #History of hemorrhoids-recently with bleeding hemorrhoids. H&H is currently stable and close to baseline. -Trend H and H -patient will need outpatient follow-up. DVT prophylaxis-SCD Patient is full code Disposition-maintain inpatient for IV antibiotics. Discharge Plan: Home - Advance Directives Does patient have a Living Will: No Does patient have a Durable POA for Healthcare: No - Code Status/Comfort Care Code Status Assessed: Yes Code Status: Full Code
[2019-07-08 12:57] LABS: Absolute Lymphocytes (CBC) 1.1 K/uL (0.7-4.9); Basophils % 0.3 % (0-1.3); Hematocrit 31.6 % (36.0-45.0); Lymphocytes % 14.7 % (15.3-44.8); RBC Red Blood Cell Count 4.65 M/uL (3.86-4.86)
[2019-07-08 13:09] LABS: Urine Bacteria <20 /HPF (<20); Urine Culture Reflex Order REFLEXED; Urine RBC <5 /HPF (NONE SEEN)
[2019-07-08] MEDS ORDERED: KETOROLAC 30 MG/ML INJ ONE (13:26)
[2019-07-08 13:31] LABS: BUN Blood Urea Nitrogen 6 mg/dL (7-18); Bicarbonate 25 mmol/L (21-32); Glucose Level 86 mg/dL (74-106); Potassium 3.5 mmol/L (3.5-5.1); Sodium Level 137 mmol/L (136-145)
[2019-07-08 14:09] LABS: Blood Morphology Comment NOTED (NOT SEEN); Hypochromasia 1+; Platelet Estimate ADEQ; Urine White Blood Cell Casts OK
--- NOTE | 2019-07-08 16:32 | ER ---
Nurse's Notes [facility] Name: Maribell Krishnamurthy Age: 38 yrs Sex: Female : 1980 Arrival Date: 07/08/2019 Time: 11:47 Bed 23 Private MD: Diagnosis: Urinary tract infection, site not specified-ESBL confirmed - Failed outpatient treatment Presentation: 07/08 12:00 Presenting complaint: Patient states: "I am having lower back pain and burning when I vc pee. It hurts when I try to pee and I have to go a lot.". 12:00 Transition of care: patient was not received from another setting of care. Onset of vc symptoms was July 07, 2019. Risk Assessment: Do you want to hurt yourself or someone else? Patient reports no desire to harm self or others. Initial Sepsis Screen: Does the patient meet any 2 criteria? No. Patient's initial sepsis screen is negative. Does the patient have a suspected source of infection? No. Patient's initial sepsis screen is negative. Care prior to arrival: Medication(s) given: took AZO at home. 12:00 Method Of Arrival: Ambulatory vc 12:00 Acuity: NUSRAT 3 vc Triage Assessment: 14:10 General: Appears. 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 - Coronavirus screen:: The patient has NOT traveled to [place], [place], or [place] in the past 14 days. The patient has NOT had contact with known/suspected case of Coronavirus? Proceed with normal triage procedures. - Social history:: Smoking status: Patient denies any tobacco usage or history of. - Ebola Screening: : No symptoms or risks identified at this time. Screenin:00 Abuse screen: Denies threats or abuse. Nutritional screening: No deficits noted. vc Tuberculosis screening: No symptoms or risk factors identified. Fall Risk None identified. Assessment: 12:00 General: Appears in no apparent distress. uncomfortable, Behavior is calm, cooperative, vc appropriate for age. Pain: Complains of pain in lumbar area, left low back and right low back. Neuro: Level of Consciousness is awake, alert, obeys commands, Oriented to person, place, time. Cardiovascular: Capillary refill < 3 seconds. Respiratory: Airway is patent Respiratory effort is even, unlabored. GI: Reports hemorrhoids. EENT: No signs and/or symptoms were reported regarding the EENT system. Derm: Skin is intact, is healthy with good turgor, Skin temperature is warm. Musculoskeletal: Circulation, motion, and sensation intact. Range of motion: intact in all extremities. 13:00 Reassessment: Patient and/or family updated on plan of care and expected duration. Pain vc level reassessed. Patient is alert, oriented x 3, equal unlabored respirations, skin warm/dry/pink. 14:00 Reassessment: Patient and/or family updated on plan of care and expected duration. Pain vc level reassessed. Patient states feeling better. 14:13 Reassessment: Attempted to call report to 2nd floor. vc 15:00 Reassessment: Patient and/or family updated on plan of care and expected duration. Pain vc level reassessed. Patient is alert, oriented x 3, equal unlabored respirations, skin warm/dry/pink. waiting to give report to second floor. 15:16 Reassessment: Attempted to call report to second floor. Will try again. vc 16:20 Reassessment: No changes from previously documented assessment. Gave report to vc Jose Elias RN, charge nurse. Vital Signs: 12:30 BP 129 / 89; Pulse 90; Resp 18; Temp 97.8(O); Pulse Ox 100% on R/A; Pain 10/10; vc 13:30 BP 117 / 83; Pulse 90; Resp 16; Pulse Ox 100% on R/A; vc 14:30 BP 123 / 71; Pulse 90; Resp 16; Pulse Ox 100% on R/A; vc 15:15 BP 128 / 97; Pulse 95; Resp 18; Pulse Ox 99% on R/A; vc 16:15 BP 120 / 84; Pulse 85; Resp 15; Pulse Ox 100% on R/A; vc ED Course: 11:47 Patient arrived in ED. as 11:50 [facility] Segov[facility]C [facility] kb 11:50 Catrachito Greco MD is Attending Physician. kb 11:59 Elmira Trinh, RN is Primary Nurse. vc 12:00 Arm band placed on. vc 12:00 Patient has correct armband on for positive identification. Placed in gown. Bed in low vc position. Call light in reach. 12:42 Aneta Graves MD is Hospitalizing Provider. kb 12:45 Initial lab(s) drawn, by me, sent to lab. Inserted saline lock: 22 gauge in right lt1 antecubital area, using aseptic technique. 13:18 Triage completed. vc 16:30 No provider procedures requiring assistance completed. vc 16:30 Patient admitted, IV remains in place. vc Administered Medications: 13:25 Drug: Meropenem 1 grams Route: IV; Rate: calculated rate; Site: right antecubital; vc 13:25 Drug: TORadol - Ketorolac 15 mg Route: IVP; Site: right antecubital; vc Outcome: 12:42 Decision to Hospitalize by Provider. kb 16:30 Admitted to Med/surg accompanied by tech, via wheelchair, room 207, Report called to vc Jose Elias RN 16:30 Condition: good 16:30 Instructed on the need for admit. vc 16:31 Patient left the ED. vc Signatures: Bibi Segovia, SENIOR EXECUTIVE COMPENSATION ANALYST-C SENIOR EXECUTIVE COMPENSATION ANALYST-Isabella Landry Leah lt1 Elmira Trinh RN RN
[2019-07-08 16:42] VITALS: BMI 29.2
[2019-07-08] MEDS ORDERED: Meropenem 1000 MG/VIAL IV SCH (17:06)
[2019-07-08] MEDS: NA CHLORIDE 0.9% 1,000 ML IV SCH ×2 (17:26→23:00)
[2019-07-08] MEDS: Meropenem 1,000 MG in NA CHLORIDE 0.9% 100 ML IV SCH (18:00)
[2019-07-08] MEDS: KETOROLAC 30 MG/ML INJ IV PRN (18:49)
[2019-07-08 19:22] LABS: Urine Appearance CLOUDY; Urine Bilirubin NEGATIVE (NEG); Urine Blood TRACE (NEG); Urine Color ORANGE; Urine Glucose NEGATIVE (NEG); Urine Protein NEGATIVE (NEG); Urine Specific Gravity 1.015 (1.005-1.030); Urine pH 6.5 (5.0-7.0)
[2019-07-08 19:23] LABS: Urine Microscopic Reflex ORDER UMIC
--- NOTE | 2019-07-08 20:13 | RAD REPORT ---
EXAM DESCRIPTION: US - Renal Ultrasound-Complete - 07/08/2019 7:53 pm CLINICAL HISTORY: uti Flank pain COMPARISON: No comparisons FINDINGS: Both kidneys are normal in size, shape and echotexture. The right kidney measures 8.4 x 4.2 x 4.1 cm. No hydronephrosis, focal mass or perinephric fluid. The left kidney measures 9.0 x 5.1 x 3.4 cm. No hydronephrosis, focal mass or perinephric fluid. The urinary bladder is incompletely distended without gross abnormality seen. IMPRESSION: Unremarkable renal sonogram.
[2019-07-08 20:15] LABS: Urine Bacteria 20-50 /HPF (<20); Urine Culture Reflex Order REFLEXED; Urine Mucus 1+ /HPF (NONE SEEN)
[2019-07-09] MEDS: Meropenem 1,000 MG in NA CHLORIDE 0.9% 100 ML IV SCH ×3 (00:55→16:19)
[2019-07-09] MEDS: KETOROLAC 30 MG/ML INJ IV PRN (04:46)
[2019-07-09 06:04] LABS: Absolute Lymphocytes (CBC) 1.4 K/uL (0.7-4.9); Basophils % 0.6 % (0-1.3); Hematocrit 28.2 % (36.0-45.0); MPV 8.8 fL (7.6-11.3); RBC Red Blood Cell Count 4.12 M/uL (3.86-4.86)
[2019-07-09 06:26] LABS: ALT/SGPT 20 U/L (12-78); AST/SGOT 11 U/L (15-37); Alkaline Phosphatase 57 U/L (45-117); BUN Blood Urea Nitrogen 6 mg/dL (7-18); Bicarbonate 24 mmol/L (21-32); Bilirubin Total 0.4 mg/dL (0.2-1.0); Glucose Level 89 mg/dL (74-106); Potassium 4.1 mmol/L (3.5-5.1); Protein, Total 6.1 g/dL (6.4-8.2); Sodium Level 141 mmol/L (136-145)
[2019-07-09] MEDS: NA CHLORIDE 0.9% 1,000 ML IV SCH ×2 (09:00→17:57)
[2019-07-09 09:43] VITALS: O2SAT 98
[2019-07-09] MEDS ORDERED: ACETAMINOPHEN 325 MG TABLET PO PRN (13:54)
--- NOTE | 2019-07-09 14:53 | P.DS ---
Admission Date: 07/08/19 Discharge Date: 07/09/19 Disposition: ROUTINE DISCHARGE Discharge Condition: GOOD Reason for Admission: Suprapubic pain Brief History of Present Illness: Ms Krishnamurthy is 38-year-old female with a history of hemorrhoids and migraine who presented to the ER on 06/26/2019 with complaints of abdominal pain. Patient was found to have urinary tract infection and discharged on Macrobid for 10 days. Patient has completed the antibiotics and still remains with dysuria, increased urinary frequency, suprapubic abdominal pain that has remained constant, 10 on a 10 out was intensity. She has developed lower back pain more in the left side. She denies any fevers; however, endorses chills. Given the straining for urination, she has noticed that her hemorrhoids are now bulging and with brbpr. Hospital Course: Patient was admitted for ESBL Ecoli UTI, initiated on merrem and symptoms did improve significantly. She will be discharged on IM ertapenem for total of 7 days of antibiotics. Patient has a history of prior recurrent UTI and followed up with urologist outpatient. Cystoscopy was completed with no findings. She has further follow-up and workup with the urologist. Patient has a history of hemorrhoids, noted to be bleeding upon admission. Bleeding did stop however patient's hemoglobin dropped and iron studies consistent with iron deficiency anemia. She has been started on iron replacement and will follow up with her PCP. Remained hemodynamically stable for discharge. Vital Signs/Physical Exam: Temp Pulse Resp BP Pulse Ox 98.4 F 85 16 115/64 98 07/09/19 08:00 07/09/19 08:00 07/09/19 08:00 07/09/19 08:00 07/09/19 08:00 General: Alert, In no apparent distress HEENT: Atraumatic, PERRLA, EOMI Neck: Supple, JVD not distended Respiratory: Clear to auscultation bilaterally, Normal air movement Cardiovascular: Regular rate/rhythm, Normal S1 S2 Gastrointestinal: Normal bowel sounds, No tenderness Musculoskeletal: No tenderness Integumentary: No rashes Neurological: Normal speech, Normal tone, Normal affect Lymphatics: No axilla or inguinal lymphadenopathy Laboratory Data at Discharge: WBC 6.2 K/uL (4.3-10.9) D 07/09/19 05:34 Hgb 9.0 g/dL (12.0-15.0) L 07/09/19 05:34 Hct 28.2 % (36.0-45.0) L 07/09/19 05:34 Plt Count 270 K/uL (152-406) 07/09/19 05:34 Sodium 141 mmol/L (136-145) 07/09/19 05:34 Potassium 4.1 mmol/L (3.5-5.1) 07/09/19 05:34 BUN 6 mg/dL (7-18) L 07/09/19 05:34 Creatinine 0.64 mg/dL (0.55-1.3) 07/09/19 05:34 Glucose 89 mg/dL (74-106) 07/09/19 05:34 Total Bilirubin 0.4 mg/dL (0.2-1.0) 07/09/19 05:34 AST 11 U/L (15-37) L 07/09/19 05:34 ALT 20 U/L (12-78) 07/09/19 05:34 Alkaline Phosphatase 57 U/L (45-117) 07/09/19 05:34 Home Medications: RX: Propranolol HCl 20 mg PO BID 07/08/19 Ascorbic Acid [Vitamin C] 500 mg PO DAILY #30 tab.chew 07/09/19 Ertapenem Sodium [Ertapenem] 1 gm IM DAILY #6 vial 07/09/19 RX: Ferrous Fumarate [Hemocyte] 324 mg PO BID #60 tablet 07/09/19 New Medications: Ascorbic Acid [Vitamin C] 500 mg PO DAILY #30 tab.chew Ertapenem Sodium [Ertapenem] 1 gm IM DAILY #6 vial RX: Ferrous Fumarate [Hemocyte] 324 mg PO BID #60 tablet Diet: Regular Activity: Ad amelie Followup: NONE,NONE [Primary Care Provider] - 1 Week
[2019-07-09] MEDS ORDERED: ERTAPENEM SODIUM 1 GM VIAL IM ONE (15:30)
[2019-07-09] MEDS ORDERED: LIDOCAINE 1% MPF 5 ML VIAL IM ONE (15:30)
[2019-07-09] MEDS ORDERED: SUMATRIPTAN SUCCI 50 MG TAB PO PRN (16:35)
[2019-07-09] MEDS: PHENAZOPYRIDINE 100MG TAB PO SCH (23:23)
[2019-07-10] MEDS: NA CHLORIDE 0.9% 1,000 ML IV SCH (03:15)
[2019-07-10 05:54] LABS: ALT/SGPT 21 U/L (12-78); AST/SGOT 11 U/L (15-37); Albumin 2.9 g/dL (3.4-5.0); Alkaline Phosphatase 51 U/L (45-117); BUN Blood Urea Nitrogen 4 mg/dL (7-18); Bicarbonate 25 mmol/L (21-32); Bilirubin Total 0.3 mg/dL (0.2-1.0); Glucose Level 89 mg/dL (74-106); Protein, Total 5.9 g/dL (6.4-8.2); Sodium Level 142 mmol/L (136-145)
[2019-07-10 06:04] LABS: Absolute Lymphocytes (CBC) 1.7 K/uL (0.7-4.9); Hematocrit 27.6 % (36.0-45.0); Lymphocytes % 28.3 % (15.3-44.8); MPV 8.9 fL (7.6-11.3)
[2019-07-10] MEDS: PHENAZOPYRIDINE 100MG TAB PO SCH (08:21)
[2019-07-10] MEDS ORDERED: PHENAZOPYRIDINE 100MG TAB PO SCH (09:00)
[2019-07-10 10:06] VITALS: TEMP 98.7
--- NOTE | 2019-07-10 10:27 | P.DS ---
Admission Date: 07/08/19 Discharge Date: 07/10/19 Disposition: ROUTINE DISCHARGE Discharge Condition: GOOD Reason for Admission: Suprapubic pain - Problems (1) ESBL (extended spectrum beta-lactamase) producing bacteria infection Current Visit: Yes Status: Acute (2) Rectal bleeding Onset Date: 02/12/17 Current Visit: No Status: Acute Brief History of Present Illness: Ms Krishnamurthy is 38-year-old female with a history of hemorrhoids and migraine who presented to the ER on 06/26/2019 with complaints of abdominal pain. Patient was found to have urinary tract infection and discharged on Macrobid for 10 days. Patient has completed the antibiotics and still remains with dysuria, increased urinary frequency, suprapubic abdominal pain that has remained constant, 10 on a 10 out was intensity. She has developed lower back pain more in the left side. She denies any fevers; however, endorses chills. Given the straining for urination, she has noticed that her hemorrhoids are now bulging and with brbpr. Hospital Course: Patient was admitted for ESBL Ecoli UTI, initiated on merrem and symptoms did improve significantly. She will be discharged on IM ertapenem for total of 5 days of antibiotics. Patient has a history of prior recurrent UTI and followed up with urologist outpatient. Cystoscopy was completed with no findings. She has further follow-up and workup with the urologist. Patient has a history of hemorrhoids, noted to be bleeding upon admission. Bleeding did stop however patient's hemoglobin dropped and iron studies consistent with iron deficiency anemia. She has been started on iron replacement and will follow up with her PCP. She remained hemodynamically stable for discharge. Vital Signs/Physical Exam: Temp Pulse Resp BP Pulse Ox 98.7 F 90 18 133/63 98 07/10/19 08:00 07/10/19 08:00 07/10/19 08:00 07/10/19 08:00 07/10/19 08:00 General: Alert, In no apparent distress HEENT: Atraumatic, PERRLA, EOMI Neck: Supple, JVD not distended Respiratory: Clear to auscultation bilaterally, Normal air movement Cardiovascular: Regular rate/rhythm, Normal S1 S2 Gastrointestinal: Normal bowel sounds, No tenderness Musculoskeletal: No tenderness Integumentary: No rashes Neurological: Normal speech, Normal tone, Normal affect Lymphatics: No axilla or inguinal lymphadenopathy Laboratory Data at Discharge: WBC 5.8 K/uL (4.3-10.9) 07/10/19 05:03 Hgb 8.8 g/dL (12.0-15.0) L 07/10/19 05:03 Hct 27.6 % (36.0-45.0) L 07/10/19 05:03 Plt Count 269 K/uL (152-406) 07/10/19 05:03 Sodium 142 mmol/L (136-145) 07/10/19 05:03 Potassium 4.0 mmol/L (3.5-5.1) 07/10/19 05:03 BUN 4 mg/dL (7-18) L 07/10/19 05:03 Creatinine 0.61 mg/dL (0.55-1.3) 07/10/19 05:03 Glucose 89 mg/dL (74-106) 07/10/19 05:03 Total Bilirubin 0.3 mg/dL (0.2-1.0) 07/10/19 05:03 AST 11 U/L (15-37) L 07/10/19 05:03 ALT 21 U/L (12-78) 07/10/19 05:03 Alkaline Phosphatase 51 U/L (45-117) 07/10/19 05:03 Home Medications: Propranolol HCl 20 mg PO BID 07/08/19 Ascorbic Acid [Vitamin C] 500 mg PO DAILY #30 tab.chew 07/09/19 Ertapenem Sodium [Ertapenem] 1 gm IM DAILY #6 vial 07/09/19 Ferrous Fumarate [Hemocyte] 324 mg PO BID #60 tablet 07/09/19 Oxybutynin Chloride [Ditropan Xl] 5 mg PO DAILY #30 tab.sa 07/10/19 New Medications: Ascorbic Acid [Vitamin C] 500 mg PO DAILY #30 tab.chew Ertapenem Sodium [Ertapenem] 1 gm IM DAILY #6 vial Ferrous Fumarate [Hemocyte] 324 mg PO BID #60 tablet Oxybutynin Chloride [Ditropan Xl] 5 mg PO DAILY #30 tab.sa Diet: Regular Activity: Ad amelie Followup: NONE,NONE [Primary Care Provider] - 1 Week
[2019-07-10] MEDS ORDERED: ERTAPENEM SODIUM 1 GM VIAL IM ONE ×2 (12:06→16:00)
[2019-07-10] MEDS ORDERED: LIDOCAINE 1% MPF 5 ML VIAL IM ONE ×2 (13:00→16:00)
[2019-07-10 14:09] VITALS: BP 130/82
== END 2019-07-10 16:00 | disposition home or self-care (01) | DRG 690 ==
LOC: ER 11:46 → ERHOLD 12:42 → 2ND 16:27
PROVIDERS: ADMIT Hospitalist; ATTEND Hospitalist
DX: N39.0 Urinary tract infection, site not specified (principal); Z16.12 Extended spectrum beta lactamase (ESBL) resistance; B96.20 Unspecified Escherichia coli [E. coli] as the cause of diseases classified elsewhere; K64.9 Unspecified hemorrhoids; D50.9 Iron deficiency anemia, unspecified
CPT/HCPCS: 36415; 76770; 80048; 80053; 81003; 81015; 83540; 84466; 84703; 85025; 87040; 87086; 87088; 96374; 96375; 99285; J1335; J7030

== ENCOUNTER 2020-05-22 23:02 | Emergency (ER) | payer MEDICAID, SELFPAY ==
--- OUTSIDE RECORDS SUMMARY | 2020-05-22 23:05 | XMS REPORT | Continuity of Care Document ---
:1980 Author Organization [facility] t Address [address] [place] [address] Care Team Providers Name Role Phone Basilio LOVE Attending Clinician Problems This patient has no known problems. Allergies, Adverse Reactions, Alerts This patient has no known allergies or adverse reactions. Medications This patient has no known medications. Procedures This patient has no known procedures. Encounters Start End Encounter Admission Attending Care Care Encounter Source Date/Time Date/Time Type Type Clinicians Facility Department ID 2020-03-17 2020-03-17 Telephone [facility] [place] [id number] 00:00:00 00:00:00 [facility] [id number] C[id number] [id number] Results This patient has no known results.
--- OUTSIDE RECORDS SUMMARY | 2020-05-22 23:06 | XMS REPORT | Summary of Care ---
:[address] [facility] - [facility] Address [address] [place] [address] Care Team Providers Name Role Phone Priya Lord MD Unavailable Pcp, Does Not Have A Primary Care Provider DO Basilio Primary Care Provider Reason for Visit Reason Comments Refill Request Encounter Details Date Type Department Care Team Description 02/24/2020 Refill [facility] Internal Valentin Pfeiffer DO [facility] [address] [facility] [address], [place] [address] [address] [place] [address] [phone] Allergies Active Allergy Reactions Severity Noted Date Comments Penicillin Shortness of Breath 04/15/2019 documented as of this encounter (statuses as of 03/04/2020) Medications Medication Sig Dispensed Refills Start End Date Status Date tamsulosin 0.4 mg Take 1 capsule 30 capsule 1 Active 24 hr capsule by mouth at 7 bedtime. Methylcellulose, Take 1 tablet 60 tablet 2 Active Laxative, (FIBER by mouth 2 9 LAXATIVE, (two) times METHYLCELLULO,) 500 daily. mg tabletIndications: Rectal bleeding hydrocortisone 2.5 Insert into 30 g 0 Active % rectal rectum 2 (two) 9 creamIndications: times daily. Rectal bleeding Apply twice daily for one week ferrous sulfate Take 1 tablet 30 tablet 3 Active (IRON) 325 mg (65 by mouth 9 mg iron) daily. tabletIndications: Microcytic anemia, Menorrhagia with regular cycle, Internal hemorrhoids SUMAtriptan 50 mg Take 25mg 1 tablet 0 Ac tive tabletIndications: (half tablet) 9 Intractable at onset of migraine with aura migraine, if without status not relieved migrainosus in 2 hours you can take an additional 25mg clindamycin 1 % Apply to 60 mL 2 Acti ve solutionIndications affected 9 : Other acne area(s) 2 (two) times daily. doxycycline 100 mg Take 1 tablet 60 tablet 1 Active tabletIndications: by mouth 2 9 Other acne (two) times daily. DEXAMETHASONE-HYDRO Apply to 30 g 1 Active QUINONE-TRETINOIN area(s) at 9 0.1-6-0.025 % bedtime. TOPICAL CREAMIndications: Other acne propranoloL 20 mg Take 1 tablet 60 tablet 0 Active tabletIndications: by mouth 2 0 Intractable (two) times migraine with aura daily. without status migrainosus propranolol 20 mg Take 1 tablet 60 tablet 2 02/25/20 Discontinued tabletIndications: by mouth 2 9 20 (Reorder) Intractable (two) times migraine with aura daily. 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 encounter (statuses as of 03/04/2020) Resolved Problems Problem Noted Date Resolved Date Immunizations up to date 07/09/2014 07/15/2015 documented as of this encounter (statuses as of 03/04/2020) Immunizations Name Administration Dates Next Due Influenza Virus Vaccine Quad .5 mL IM 6+ MO 08/01/2018 Rubella 12/07/2009 TDAP 12/27/2011 documented as of this encounter Social History Tobacco Use Types Packs/Day Years Used Date Never Smoker Smokeless Tobacco: Never Used Alcohol Use Drinks/Week oz/Week Comments No Sex Assigned at Date Recorded Not on file documented as of this encounter Last Filed Vital Signs Not on filedocumented in this encounter Miscellaneous Notes Telephone Encounter - Pili Meraz - 03/04/2020 10:25 AM CDTLVM attempted to contact patient to schedule follow up. Mailbox full could leave message. ddendum Note - Geraldo Cohen MD - 02/25/2020 9:45 AM CDT Addended by: GERALDO COHEN MD on: 02/25/2020 09:45 AM Modules accepted: Orders Telephone Encounter - Geraldo Cohen MD - 02/25/2020 9:43 AM CDT Provided 1 month of Rx. Patient will need to have visit in clinic before further refills provided. Geraldo Cohen M.D. Clinical Activity Manager Department of Internal Medicine Doctor's Number: [id number] Pager: [phone] Telephone Encounter - Felicitas Aldridge MD - 02/24/2020 3:44 PM CDTI am no longer w/ IM, routing to Dr. Cohen. documented in this encounter Plan of Treatment Health Maintenance Due Date Last Done Comments VARICELLA VACCINES (1 of 2 1982 - 2-dose childhood series) Depression Screening 1993 PAP SMEAR 07/09/2017 07/09/2014, 05/24/2011, 12/07/2010, Additional history exists INFLUENZA VACCINE (#1) 2020 08/01/2018 DTaP,Tdap,and Td Vaccines 12/26/2021 12/27/2011 (2 - Td) PNEUMOCOCCAL 0-64 YEARS Aged Out No longe r eligible COMBINED SERIES based on patient 's age to complete this topic documented as of this encounter Results Not on filedocumented in this encounter Visit Diagnoses Diagnosis Intractable migraine with aura without s tatus migrainosus Migraine with aura, with intractable nestor volodymyr, so stated, without mention of status migrainosus documented in this encounter Advance Directives Type Date Recorded 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
--- OUTSIDE RECORDS SUMMARY | 2020-05-22 23:06 | XMS REPORT | Summary of Care ---
:1980 Author Organization [facility] Address [address] [place] [address] Care Team Providers Name Role Phone Priya Lord MD Unavailable Pcp, Does Not Have A Primary Care Provider Reason for Visit Reason Comments Refill Request Encounter Details Date Type Department Care Team Description 02/24/2020 Refill [facility] Internal Gary Valentin Drew, [facility] [address] [place] [address] [address], [place] [address] [address] [place] [address] [phone] Allergies Active Allergy Reactions Severity Noted Date Comments Penicillin Shortness of Breath 04/15/2019 documented as of this encounter (statuses as of 02/25/2020) Medications Medication Sig Dispensed Refills Start End [...] as of this encounter (statuses as of 02/25/2020) Active Problems Problem Noted Date Rectal bleeding 07/31/2018 GI bleed 02/25/2017 GIB (gastrointestinal bleeding) 02/24/2017 BV (bacterial vaginosis) 10/21/2015 UTI symptoms 10/21/2015 Well woman exam 07/15/2015 Contraception management 07/15/2015 Yeast infection of the vagina 07/15/2015 Dysmenorrhea 07/15/2015 History of anxiety 07/15/2015 Dental cavities 07/15/2015 Overweight 07/09/2014 Overview: ICD10 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 Patient will need to have visit in clinic before further refills provided. Geraldo Cohen M.D. 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
--- OUTSIDE RECORDS SUMMARY | 2020-05-22 23:06 | XMS REPORT | Summary of Care ---
:1980 Author Organization [facility] - [facility] Address [address] [place] [address] Care Team Providers Name Role Phone Priya Lord MD Unavailable DO Basilio Primary Care Provider Reason for Visit Reason Comments Refill Request Encounter Details Date Type Department Care Team Description 03/17/2020 Telephone [facility] Internal Mago [place] DO Refill Request [address] [place] [address] [facility] [address] [place] [address] Allergies Active Allergy Reactions Severity Noted Date Comments Penicillin Shortness of Breath 04/15/2019 documented as of this encounter (statuses as of 03/18/2020) Medications Medication Sig Dispensed Refills Start Date End Date Status tamsulosin 0.4 mg 24 Take 1 capsule by 30 capsule 1 03/25/2017 Active hr capsule mouth at bedtime. Methylcellulose, Take 1 tablet by 60 tablet 2 08/01/2018 Active Laxative, (FIBER mouth 2 (two) LAXATIVE, times daily. METHYLCELLULO,) 500 mg tabletIndications: Rectal bleeding hydrocortisone 2.5 % Insert into 30 g 0 08/01/2018 Active rectal rectum 2 (two) creamIndications: times daily. Rectal bleeding Apply twice daily for one week ferrous sulfate (IRON) Take 1 tablet by 30 tablet 3 08/13/2018 Active 325 mg (65 mg iron) mouth daily. tabletIndications: Microcytic anemia, Menorrhagia with regular cycle, Internal hemorrhoids SUMAtriptan 50 mg Take 25mg (half 1 tablet 0 03/18/2019 Active tabletIndications: tablet) at onset Intractable migraine of migraine, if with aura without not relieved in 2 status migrainosus hours you can take an additional 25mg clindamycin 1 % Apply to 60 mL 2 04/15/2019 Act swati solutionIndications: affected area(s) Other acne 2 (two) times daily. doxycycline 100 mg Take 1 tablet by 60 tablet 1 04/15/2019 Active tabletIndications: mouth 2 (two) Other acne times daily. DEXAMETHASONE-HYDROQUI Apply to area(s) 30 g 1 9 Active NONE-TRETINOIN at bedtime. 0.1-6-0.025 % TOPICAL CREAMIndications: Other acne propranoloL 20 mg Take 1 tablet by 60 tablet 0 02/25/2020 Active tabletIndications: mouth 2 (two) Intractable migraine times daily. 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 Please schedule patient a follow up elephone Encounter - Pili Meraz - 03/17/2020 3:11 PM CDTPatient is a 39 yr old female. 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
--- OUTSIDE RECORDS SUMMARY | 2020-05-22 23:06 | XMS REPORT | Summary of Care ---
:1980 Author Organization [facility] - [facility] Address [address] [place] [address] Care Team Providers Name Role Phone Priya Lord MD Unavailable Pcp, Does Not Have A Primary Care Provider Reason for Visit Reason Comments Refill Request Encounter Details Date Type Department Care Team Description 02/24/2020 Refill [facility] Internal Gary Valentin Drew, DO [facility] [address] Primary [place] [address] [address], [place] [address] [address] [place] [address] [phone] Allergies Active Allergy Reactions Severity Noted Date Comments Penicillin Shortness of Breath 04/15/2019 documented as of this encounter (statuses as of 02/24/2020) Medications Medication Sig Dispensed Refills Start Date [...] hours you can take an additional 25mg propranolol 20 mg Take 1 tablet by 60 tablet 2 03/18/2019 Active tabletIndications: mouth 2 (two) Intractable migraine times daily. with aura without status migrainosus clindamycin 1 % Apply to 60 mL 2 04/15/2019 Act swati solutionIndications: affected area(s) Other acne 2 (two) times daily. doxycycline 100 mg Take 1 tablet by 60 tablet 1 04/15/2019 Active tabletIndications: mouth 2 (two) Other acne times daily. DEXAMETHASONE-HYDROQUI Apply to area(s) 30 g 1 9 Active NONE-TRETINOIN at bedtime. 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 Hawk. 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
--- OUTSIDE RECORDS SUMMARY | 2020-05-22 23:07 | XMS REPORT | Summary of Care ---
:[address] [facility] Address [address] [place] [id number] Care Team Providers Name Role Phone Priya Lord MD Unavailable DO Basilio Primary Care Provider Reason for Visit Reason Comments Refill Request Appointment Encounter Details Date Type Department Care Team Description 03/17/2020 Telephone [facility] Internal Mago [place] DO Refill Request; [address] Appointment Primary Care [place], [place] [address], [address] [address] [place] [address] Allergies Active Allergy Reactions Severity Noted Date Comments Penicillin Shortness of Breath 04/15/2019 documented as of this encounter (statuses as of 03/21/2020) Medications Medication Sig Dispensed Refills Start Date [...] as of this encounter (statuses as of 03/21/2020) Active Problems Problem Noted Date Rectal bleeding 07/31/2018 GI bleed 02/25/2017 GIB (gastrointestinal bleeding) 02/24/2017 BV (bacterial vaginosis) 10/21/2015 UTI symptoms 10/21/2015 Well woman exam 07/15/2015 Contraception management 07/15/2015 Yeast infection of the vagina 07/15/2015 Dysmenorrhea 07/15/2015 History of anxiety 07/15/2015 Dental cavities 07/15/2015 Overweight 07/09/2014 Overview: ICD10 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
[2020-05-23 00:01] LABS: Urine Bacteria <20 /HPF (<20); Urine RBC NONE SEEN /HPF (NONE SEEN)
[2020-05-23 00:02] LABS: Urine Blood NEGATIVE (NEG); Urine Glucose NEGATIVE (NEG); Urine Protein NEGATIVE (NEG)
--- NOTE | 2020-05-23 00:14 | EDPHYS ---
Physician Documentation [facility] Name: Maribell Krishnamurthy Age: 39 yrs Sex: Female : 1980 Arrival Date: 05/22/2020 Time: 23:05 Bed 6 Private MD: ED Physician Cisco Heard HPI: 05/22 23:20 This 39 yrs old Female presents to ER via Ambulatory with complaints of Pain pm1 With Urination. 23:20 Onset: The symptoms/episode began/occurred today. Associated signs and symptoms: pm1 Pertinent negatives: abdominal pain, fever. Modifying factors: The patient symptoms are alleviated by nothing, the patient symptoms are aggravated by urinating. The patient has experienced similar episodes in the past, multiple times, Last UTI approximately 3-4 months ago. The patient has not recently seen a physician. Patient reports burning with urination. No vaginal discharge. Historical: - Allergies: 23:42 No Known Allergies; ea - Home Meds: 23:42 Propranolol Oral [Active]; ea - PMHx: 23:42 Migraines; Headaches; Anxiety; ea - Immunization history:: Adult Immunizations up to date. - Social history:: Smoking status: Patient denies any tobacco usage or history of. ROS: 23:20 Constitutional: Negative for fever, chills, and weight loss, Cardiovascular: Negative pm1 for chest pain, palpitations, and edema, Respiratory: Negative for shortness of breath, cough, wheezing, and pleuritic chest pain, Abdomen/GI: Negative for abdominal pain, nausea, vomiting, diarrhea, and constipation, Back: Negative for injury and pain. 23:20 MS/Extremity: Negative for injury and deformity, Skin: Negative for injury, rash, and discoloration, Neuro: Negative for headache, weakness, numbness, tingling, and seizure. 23:20 : Positive for urinary frequency, burning with urination. Exam: 23:20 Constitutional: This is a well developed, well nourished patient who is awake, alert, pm1 and in no acute distress. Head/Face: Normocephalic, atraumatic. 23:20 Back: No spinal tenderness. No costovertebral tenderness. Full range of motion. Skin: Warm, dry with normal turgor. Normal color with no rashes, no lesions, and no evidence of cellulitis. MS/ Extremity: Pulses equal, no cyanosis. Neurovascular intact. Full, normal range of motion. 23:20 Cardiovascular: Exam negative for acute changes, Rate: normal, Rhythm: regular, Pulses: no pulse deficits are appreciated. 23:20 Respiratory: Exam negative for acute changes, respiratory distress, shortness of breath. 23:20 Abdomen/GI: Inspection: abdomen appears normal, Palpation: abdomen is soft and non-tender, in all quadrants. 23:20 Neuro: Exam negative for acute changes, Orientation: is normal, Mentation: is normal, Motor: is normal, moves all fours. Vital Signs: 23:39 BP 134 / 94; Pulse 95; Resp 18; Temp 97.6; Pulse Ox 100% on R/A; Weight 67.13 kg; ea Height 5 ft. (152.40 cm); 05/23 00:26 BP 126 / 78; Pulse 89; Resp 17; Temp 98; Pulse Ox 99% on R/A; rv 05/22 23:39 Body Mass Index 28.90 (67.13 kg, 152.40 cm) ea MDM: 05/22 23:20 Patient medically screened. pm1 05/23 00:12 Data reviewed: vital signs. Data interpreted: Pulse oximetry: on room air is 100 %. pm1 Interpretation: normal. Counseling: I had a detailed discussion with the patient and/or guardian regarding: the historical points, exam findings, and any diagnostic results supporting the discharge/admit diagnosis, lab results, the need for outpatient follow up, to return to the emergency department if symptoms worsen or persist or if there are any questions or concerns that arise at home, pending urine culture result and will treat empircally. 05/22 23:34 Order name: Urine Microscopic Only; Complete Time: 00:02 ea 05/22 23:39 Order name: Urine Dipstick--Ancillary (enter results); Complete Time: 00:11 tt3 05/22 23:34 Order name: Urine Dipstick-Ancillary (obtain specimen); Complete Time: 23:44 ea 05/22 23:39 Order name: Urine --Ancillary (enter results); Complete Time: 00:11 tt3 05/23 00:04 Order name: Urine Culture EDMS Administered Medications: 00:26 Drug: Rocephin (cefTRIAXone) 1 grams Route: IM; Site: right gluteus; rv 00:41 Follow up: Response: No adverse reaction rv Disposition: 02:51 Co-signature as Attending Physician, Cisco Heard MD. [email or web address] Disposition: 05/23/20 00:13 Discharged to Home. Impression: Urinary tract infection, site not specified. - Condition is Stable. - Discharge Instructions: Urinary Tract Infection, Adult. - Prescriptions for Pyridium 200 mg Oral Tablet - take 1 tablet by ORAL route every 8 hours for 3 days; 9 tablet. Macrobid 100 mg Oral Capsule - take 1 capsule by ORAL route every 12 hours for 10 days; 20 capsule. - Medication Reconciliation Form, Thank You Letter, Antibiotic Education, Prescription Opioid Use form. - Follow up: Emergency Department; When: As needed; Reason: Worsening of condition. Follow up: Private Physician; When: 2 - 3 days; Reason: Recheck today's complaints, Continuance of care, Re-evaluation by your physician. - Problem is new. - Symptoms have improved. Signatures: Dispatcher [employer] EDMS Grzegorz Sánchez, HONORIO SUPERVISOR COLOR PASTE MIXING pm1 Sarah Cruz, RN RN Koby Howard RN Cisco Vance MD MD [email or web address] Corrections: (The following items were deleted from the chart) 00:41 00:13 05/23/2020 00:13 Discharged to Home. Impression: Urinary tract infection, site rv not specified. Condition is Stable. Forms are Medication Reconciliation Form, Thank You Letter, Antibiotic Education, Prescription Opioid Use. Follow up: Emergency Department; When: As needed; Reason: Worsening of condition. Follow up: Private Physician; When: 2 - 3 days; Reason: Recheck today's complaints, Continuance of care, Re-evaluation by your physician. Problem is new. Symptoms have improved. pm1
--- NOTE | 2020-05-23 00:14 | ER ---
Nurse's Notes [facility] Name: Maribell Krishnamurthy Age: 39 yrs Sex: Female : 1980 Arrival Date: 05/22/2020 Time: 23:05 Bed 6 Private MD: Diagnosis: Urinary tract infection, site not specified Presentation: 05/22 23:39 Chief complaint: Patient states: Reports pain with urination that started today, pt ea reports urinary frequency and pain. Coronavirus screen: At this time, the client does not indicate any symptoms associated with coronavirus-19. Ebola Screen: No symptoms or risks identified at this time. Initial Sepsis Screen: Does the patient meet any 2 criteria? No. Patient's initial sepsis screen is negative. Does the patient have a suspected source of infection? No. Patient's initial sepsis screen is negative. Risk Assessment: Do you want to hurt yourself or someone else? Patient reports no desire to harm self or others. Onset of symptoms was May 22, 2020. 23:39 Method Of Arrival: Ambulatory ea 23:39 Acuity: NUSRAT 3 ea Triage Assessment: 23:42 General: Appears in no apparent distress. Behavior is calm, cooperative, appropriate ea for age. Pain: Complains of pain in pain with urination. Neuro: Level of Consciousness is awake, alert, obeys commands, Oriented to person, place, time. Respiratory: Airway is patent Respiratory effort is even, unlabored, Respiratory pattern is regular, symmetrical. Derm: Skin is pink, warm \T\ dry. Historical: - Allergies: 23:42 No Known Allergies; ea - Home Meds: 23:42 Propranolol Oral [Active]; ea - PMHx: 23:42 Migraines; Headaches; Anxiety; ea - Immunization history:: Adult Immunizations up to date. - Social history:: Smoking status: Patient denies any tobacco usage or history of. Screenin:40 Abuse screen: Denies threats or abuse. Nutritional screening: No deficits noted. ea Tuberculosis screening: No symptoms or risk factors identified. Fall Risk None identified. Assessment: 23:42 Reassessment: see triage assessment. ea 05/23 00:24 Reassessment: Patient and/or family updated on plan of care and expected duration. Pain ea level reassessed. Patient is alert, oriented x 3, equal unlabored respirations, skin warm/dry/pink. Vital Signs: 05/22 23:39 BP 134 / 94; Pulse 95; Resp 18; Temp 97.6; Pulse Ox 100% on R/A; Weight 67.13 kg; ea Height 5 ft. (152.40 cm); 05/23 00:26 BP 126 / 78; Pulse 89; Resp 17; Temp 98; Pulse Ox 99% on R/A; rv 05/22 23:39 Body Mass Index 28.90 (67.13 kg, 152.40 cm) ea ED Course: 05/22 23:05 Patient arrived in ED. am2 23:19 Koby Saenz RN is Primary Nurse. rv 23:20 Grzegorz Sánchez NP is PHCP. pm1 23:20 Cisco Heard MD is Attending Physician. pm1 23:40 Triage completed. ea 23:41 Patient has correct armband on for positive identification. Bed in low position. Call ea light in reach. Pulse ox on. NIBP on. 23:42 Arm band placed on right wrist. Patient placed in an exam room, on a stretcher, on ea pulse oximetry. 05/23 00:24 No provider procedures requiring assistance completed. Patient did not have IV access ea during this emergency room visit. Administered Medications: 00:26 Drug: Rocephin (cefTRIAXone) 1 grams Route: IM; Site: right gluteus; rv 00:41 Follow up: Response: No adverse reaction rv Outcome: 00:13 Discharge ordered by . pm1 00:27 Discharged to home ambulatory. rv 00:27 Condition: good 00:27 Discharge instructions given to patient, Instructed on discharge instructions, follow up and referral plans. medication usage, Demonstrated understanding of instructions, follow-up care, medications, Prescriptions given X 2. 00:41 Patient left the ED. rv Addendum: 05/26/2020 10:49 Addendum: Culture Results: Positive urine culture. Prescription called-in to pharmacy a [facility] of choice. To [facility] pharmacy in [place], [place] per pt's request. Called in Augmentin 875mg PO BID x 10 days per Angelia Conklin NP. Signatures: Bushra Akers RN RN aa5 Grzegorz Sánchez NP REWINDER OPERATOR HELPER pm1 Lydia Hong am2 Sarah Cruz RN RN ea Johnson Saenzo, RN RN rv
[2020-05-23] MEDS ORDERED: CEFTRIAXONE 1000 MG/VIAL ONE (00:29)
[2020-05-26 05:51] VITALS: BP 126/78; TEMP 98; O2SAT 99
== END 2020-05-23 00:41 | disposition home or self-care (01) ==
LOC: ER 23:02
DX: N39.0 Urinary tract infection, site not specified (principal)
CPT/HCPCS: 81003; 81015; 81025; 87077; 87086; 87088; 87186; 96372; 99283

== ENCOUNTER 2020-08-16 13:01 | Emergency (ER) | payer SELFPAY ==
--- OUTSIDE RECORDS SUMMARY | 2020-08-16 13:04 | XMS REPORT | Continuity of Care Document ---
:1980 Author Organization [facility] t Address [address] [place] [address] Care Team Providers Name Role Phone Basilio [...] Department ID 2020-03-17 2020-03-17 Telephone MORE [place] [id number] 00:00:00 00:00:00 [facility] [id number] [facility].[id number] [phone] [id number] Results This patient has no known results.
[2020-08-16] MEDS ORDERED: METOCLOPRAMIDE 10 MG/2mL INJ ONE (13:56)
[2020-08-16] MEDS ORDERED: NA CHLORIDE 0.9% 1,000 ML ONE (13:57)
[2020-08-16 14:17] LABS: BUN Blood Urea Nitrogen 8 mg/dL (7-18); Bicarbonate 25 mmol/L (21-32); Glucose Level 96 mg/dL (74-106); Sodium Level 140 mmol/L (136-145)
[2020-08-16 14:33] LABS: Absolute Lymphocytes (CBC) 1.2 K/uL (0.7-4.9); Basophils % 1.3 % (0-1.3); Hematocrit 24.1 % (36.0-45.0); Lymphocytes % 23.2 % (15.3-44.8); MPV 8.7 fL (7.6-11.3); RBC Red Blood Cell Count 3.85 M/uL (3.86-4.86)
[2020-08-16 14:38] LABS: Anisocytosis 1+; Blood Morphology Comment NOTED (NOT SEEN); Hypochromasia 2+; Platelet Estimate ADEQ; White Blood Cell Scan OK (OK)
[2020-08-16 15:36] LABS: Urine Blood NEGATIVE (NEG); Urine Glucose NEGATIVE (NEG); Urine Protein NEGATIVE (NEG); Urine pH 6.5 (5.0-7.0)
[2020-08-16] MEDS ORDERED: NA CHLORIDE 0.9% 250 ML ONE (16:02)
[2020-08-16] MEDS ORDERED: ACETAMINOPHEN 325 MG TABLET ONE (18:25)
[2020-08-16] MEDS ORDERED: KETOROLAC 30 MG/ML INJ ONE (18:43)
--- NOTE | 2020-08-16 18:43 | ER ---
Nurse's Notes [facility] Name: Maribell Krishnamurthy Age: 39 yrs Sex: Female : 1980 Arrival Date: 08/16/2020 Time: 13:04 Bed 16 Private MD: Diagnosis: Anemia Presentation: 08/16 13:13 Chief complaint: Patient states: Reports heavy rectal bleeding for the past 3 weeks, ll1 stopped about two days ago. States she has bad Hemoriod's that bleed sometimes. Feels weak, dizzy, fatigue, GILLIAM for 2 weeks. States she is anemic. Coronavirus screen: Client denies travel out of the [place] in the last 14 days. At this time, the client does not indicate any symptoms associated with coronavirus-19. Ebola Screen: Patient denies travel to an Ebola-affected area in the 21 days before illness onset. Initial Sepsis Screen: Does the patient meet any 2 criteria? HR > 90 bpm. No. Patient's initial sepsis screen is negative. Does the patient have a suspected source of infection? No. Patient's initial sepsis screen is negative. Risk Assessment: Do you want to hurt yourself or someone else? Patient reports no desire to harm self or others. Onset of symptoms was August 31, 2020. 13:13 Method Of Arrival: Ambulatory ll1 13:13 Acuity: NUSRAT 3 ll1 Historical: - Allergies: 13:13 No Known Allergies; ll1 - PMHx: 13:13 Anxiety; Headaches; Migraines; ll1 - PSHx: 13:13 None; ll1 - Immunization history:: Flu vaccine is not up to date. - Social history:: Smoking status: Patient denies any tobacco usage or history of. Screenin:26 Abuse screen: Denies threats or abuse. Nutritional screening: No deficits noted. vg1 Tuberculosis screening: No symptoms or risk factors identified. Fall Risk No fall in past 12 months (0 pts). No secondary diagnosis (0 pts). No IV (0 pts). Ambulatory Aid- None/Bed Rest/Nurse Assist (0 pts). Gait- Normal/Bed Rest/Wheelchair (0 pts) Mental Status- Oriented to own ability (0 pts). Total Tejada Fall Scale indicates No Risk (0-24 pts). Assessment: 13:25 General: Appears in no apparent distress. comfortable, Behavior is calm, cooperative. vg1 Pain: Complains of pain in headache Pain currently is 8 out of 10 on a pain scale. Neuro: Level of Consciousness is awake, alert, obeys commands, Oriented to person, place, time, situation. Neuro: Reports dizziness, headache. Cardiovascular: Patient's skin is warm and dry. Respiratory: Airway is patent Respiratory effort is even, unlabored, Respiratory pattern is regular, symmetrical. GI: Patient currently denies diarrhea, nausea, vomiting. : No signs and/or symptoms were reported regarding the genitourinary system. EENT: No signs and/or symptoms were reported regarding the EENT system. Derm: Skin is intact, is healthy with good turgor. Musculoskeletal: Circulation, motion, and sensation intact. 15:45 Reassessment: Patient appears in no apparent distress at this time. No changes from vg1 previously documented assessment. Patient and/or family updated on plan of care and expected duration. Pain level reassessed. Patient is alert, oriented x 3, equal unlabored respirations, skin warm/dry/pink. 16:43 Reassessment: Patient appears in no apparent distress at this time. Patient and/or vg1 family updated on plan of care and expected duration. Pain level reassessed. Patient is alert, oriented x 3, equal unlabored respirations, skin warm/dry/pink. 18:08 Reassessment: Patient appears in no apparent distress at this time. Patient and/or vg1 family updated on plan of care and expected duration. Pain level reassessed. Patient is alert, oriented x 3, equal unlabored respirations, skin warm/dry/pink. Patient states feeling better. Vital Signs: 13:13 BP 137 / 81; Pulse 104; Resp 17; Temp 98.0; Pulse Ox 100% ; Weight 70.31 kg; Height 5 ll1 ft. 0 in. (152.40 cm); Pain 8/10; 13:26 BP 122 / 80; Pulse 105; Resp 14; Pulse Ox 100% on R/A; vg1 14:00 BP 113 / 77; Pulse 96; Resp 16; Pulse Ox 100% on R/A; vg1 15:45 BP 109 / 76; Pulse 90; Resp 16; Pulse Ox 100% on R/A; vg1 16:30 BP 119 / 77; Pulse 86; Resp 18; Temp 98.4; Pulse Ox 100% on R/A; vg1 17:30 BP 131 / 78; Pulse 97; Resp 18; Temp 98.5; Pulse Ox 100% on R/A; vg1 18:30 BP 122 / 77; Pulse 88; Resp 16; Temp 98.6; Pulse Ox 100% on R/A; vg1 19:00 BP 126 / 56; Pulse 90; Resp 16; Temp 99.2; Pulse Ox 100% on R/A; vg1 13:13 Body Mass Index 30.27 (70.31 kg, 152.40 cm) ll1 ED Course: 13:04 Patient arrived in ED. ds1 13:13 Arm band placed on Patient placed in an exam room, on a stretcher. ll1 13:15 Triage completed. ll1 13:17 Cristy Hammer, RN is Primary Nurse. vg1 13:25 Ten Burks PA is PHCP. [facility] 13:25 Wang Mcgarry MD is Attending Physician. [facility] 13:26 Patient has correct armband on for positive identification. Bed in low position. Call [facility] light in reach. Side rails up X 1. 13:50 Initial lab(s) drawn, by al, sent to lab. Inserted saline lock: 20 gauge in left vg1 antecubital area, using aseptic technique. Blood collected. 13:58 Urine collected: clean catch specimen, clear. vg1 18:42 Jigar Cohen MD is Referral Physician. [facility] 18:42 Sanya Lomeli MD is Referral Physician. [facility] 19:41 No provider procedures requiring assistance completed. IV discontinued, intact, vg1 bleeding controlled, No redness/swelling at site. Pressure dressing applied. Administered Medications: 13:54 Drug: NS 0.9% 1000 ml Route: IV; Rate: 1 bolus; Site: left antecubital; vg1 13:54 Drug: Reglan 10 mg Route: IVP; Site: left antecubital; vg1 19:42 Follow up: Response: No adverse reaction vg1 18:34 Drug: Tylenol 650 mg Route: PO; vg1 19:42 Follow up: Response: No adverse reaction vg1 18:34 Drug: Ketorolac 30 mg Route: IM; Site: right deltoid; vg1 19:42 Follow up: Response: No adverse reaction vg1 Outcome: 18:42 Discharge ordered by MD. obrien 19:41 Discharged to home ambulatory. vg1 19:41 Condition: stable 19:41 Discharge instructions given to patient, Instructed on discharge instructions, follow up and referral plans. Demonstrated understanding of instructions, follow-up care. 19:41 Patient left the ED. vg1 Signatures: Ten Burks PA PA jmm Sanford, Demi ds1 Cristy Hammer RN RN vg1 Nery Song RN RN ll1
--- NOTE | 2020-08-16 18:43 | EDPHYS ---
Physician Documentation [facility] Name: Maribell Krishnamurthy Age: 39 yrs Sex: Female : 1980 Arrival Date: 08/16/2020 Time: 13:04 Bed 16 Private MD: ED Physician Wang Mcgarry HPI: 08/16 13:33 This 39 yrs old Female presents to ER via Ambulatory with complaints of Rectal jmm Bleeding, Headache. 13:33 The patient presents to the emergency department with bleeding from the rectum/anus. jmm Onset: The symptoms/episode began/occurred gradually, 3 week(s) ago. Modifying factors: The symptoms are alleviated by nothing. The patient has experienced similar episodes in the past. This is a 39 year old female with a history of anxiety, migraines that presents to the ED with complaints of headache for the past 2 days. Patient states she recently stopped bleeding rectally. Patient states she has had a similar headache in the past after becoming anemic. Patient also complains of mild left flank pain beginning this morning. . Historical: - Allergies: 13:13 No Known Allergies; ll1 - PMHx: 13:13 Anxiety; Headaches; Migraines; ll1 - PSHx: 13:13 None; ll1 - Immunization history:: Flu vaccine is not up to date. - Social history:: Smoking status: Patient denies any tobacco usage or history of. ROS: 13:33 Cardiovascular: Negative for chest pain, palpitations, and edema. jmm 13:33 Respiratory: Negative for shortness of breath, cough, wheezing, and pleuritic chest pain. 13:33 Constitutional: Positive for fatigue. 13:33 Abdomen/GI: Positive for abdominal pain. 13:33 Neuro: Positive for headache. 13:33 All other systems are negative. Exam: 13:33 Constitutional: This is a well developed, well nourished patient who is awake, alert, jmm and in no acute distress. Head/Face: atraumatic. Eyes: EOMI, no conjunctival erythema appreciated ENT: Moist Mucus Membranes Neck: Trachea midline, Supple Chest/axilla: Normal chest wall appearance and motion. Cardiovascular: Regular rate and rhythm. No edema appreciated Respiratory: Normal respirations, no respiratory distress appreciated 13:33 Back: Normal ROM Skin: General appearance color normal MS/ Extremity: Moves all extremities, no obvious deformities appreciated, no edema noted to the lower extremities Neuro: Awake and alert, normal gait 13:33 Abdomen/GI: Inspection: abdomen appears normal, Bowel sounds: normal, Palpation: abdomen is soft and non-tender, in all quadrants, soft. 18:40 Abdomen/GI: Rectal exam: is unremarkable, Stool: normal, guaiac negative. [facility] Vital Signs: 13:13 BP 137 / 81; Pulse 104; Resp 17; Temp 98.0; Pulse Ox 100% ; Weight 70.31 kg; Height 5 ll1 ft. 0 in. (152.40 cm); Pain 8/10; 13:26 BP 122 / 80; Pulse 105; Resp 14; Pulse Ox 100% on R/A; vg1 14:00 BP 113 / 77; Pulse 96; Resp 16; Pulse Ox 100% on R/A; vg1 15:45 BP 109 / 76; Pulse 90; Resp 16; Pulse Ox 100% on R/A; vg1 16:30 BP 119 / 77; Pulse 86; Resp 18; Temp 98.4; Pulse Ox 100% on R/A; vg1 17:30 BP 131 / 78; Pulse 97; Resp 18; Temp 98.5; Pulse Ox 100% on R/A; vg1 18:30 BP 122 / 77; Pulse 88; Resp 16; Temp 98.6; Pulse Ox 100% on R/A; vg1 19:00 BP 126 / 56; Pulse 90; Resp 16; Temp 99.2; Pulse Ox 100% on R/A; vg1 13:13 Body Mass Index 30.27 (70.31 kg, 152.40 cm) 1 MDM: 13:28 Patient medically screened. [facility] 18:40 Data reviewed: vital signs, nurses notes. Counseling: I had a detailed discussion with [facility] the patient and/or guardian regarding: the historical points, exam findings, and any diagnostic results supporting the discharge/admit diagnosis, lab results, the need for outpatient follow up, to return to the emergency department if symptoms worsen or persist or if there are any questions or concerns that arise at home. ED course: Abdomen benign, no active bleeding appreciated. Patient advised to follow up with GI/Surgery for further evaluation. Patient understood and agrees with the plan of care. . 08/16 13:33 Order name: CBC with Diff; Complete Time: 14:42 [facility] 08/16 13:33 Order name: BMP; Complete Time: 14:21 [facility] 08/16 13:33 Order name: Type And Screen [facility] 08/16 13:59 Order name: Urine Dipstick--Ancillary (enter results); Complete Time: 15:42 08/16 13:59 Order name: Urine --Ancillary (enter results); Complete Time: 15:42 08/16 14:38 Order name: CBC Smear Scan; Complete Time: 14:42 [facility] 08/16 15:15 Order name: Bb Add On 08/16 15:16 Order name: Packed RBCs (Additional Unit) [facility] 08/16 15:16 Order name: PRBC [facility] 08/16 18:41 Order name: Occult Blood--Ancillary 08/16 13:33 Order name: Urine Dipstick-Ancillary (obtain specimen); Complete Time: 13:54 [facility] 08/16 13:33 Order name: Urine Test (obtain specimen); Complete Time: 13:54 [facility] 08/16 13:33 Order name: Saline Lock; Complete Time: 13:58 [facility] Administered Medications: 13:54 Drug: NS 0.9% 1000 ml Route: IV; Rate: 1 bolus; Site: left antecubital; vg1 13:54 Drug: Reglan 10 mg Route: IVP; Site: left antecubital; vg1 19:42 Follow up: Response: No adverse reaction vg1 18:34 Drug: Tylenol 650 mg Route: PO; vg1 19:42 Follow up: Response: No adverse reaction vg1 18:34 Drug: Ketorolac 30 mg Route: IM; Site: right deltoid; vg1 19:42 Follow up: Response: No adverse reaction vg1 Disposition: 08/17 06:59 Co-signature as Attending Physician, Wang Mcgarry MD. rn Disposition: 08/16/20 18:42 Discharged to Home. Impression: Anemia. - Condition is Stable. - Discharge Instructions: Anemia, Nonspecific, Rectal Bleeding. - Medication Reconciliation Form, Thank You Letter, Antibiotic Education, Prescription Opioid Use form. - Follow up: Jigar Cohen MD; When: 2 - 3 days; Reason: Recheck today's complaints, Continuance of care, Re-evaluation by your physician. Follow up: Sanya Lomeli MD; When: 2 - 3 days; Reason: Recheck today's complaints, Continuance of care, Re-evaluation by your physician. Signatures: Dispatcher [employer] [facility] Ten Burks PA PA jmm Nieto, Roman, MD MD rn Harman, Cristy, RN RN vg1 Nery Song RN RN ll1 Corrections: (The following items were deleted from the chart) 08/16 15:31 15:17 Packed RBC Leukored ordered. [facility] 15:31 15:17 ABO/RH typing ordered. [facility] 15:31 15:17 Antibody Screen ordered. [facility] 19:41 18:42 08/16/2020 18:42 Discharged to Home. Impression: Anemia. Condition is Stable. vg1 Forms are Medication Reconciliation Form, Thank You Letter, Antibiotic Education, Prescription Opioid Use. Follow up: Jigar Cohen; When: 2 - 3 days; Reason: Recheck today's complaints, Continuance of care, Re-evaluation by your physician. Follow up: Sanya Lomeli; When: 2 - 3 days; Reason: Recheck today's complaints, Continuance of care, Re-evaluation by your physician. camille
[2020-08-17 14:18] VITALS: O2SAT 100
[2020-08-17 14:19] VITALS: TEMP 98
[2020-08-17 14:22] VITALS: BP 109/76
== END 2020-08-16 19:41 | disposition home or self-care (01) ==
LOC: ER 13:01
PROC: 30233N1 Transfusion of Nonautologous Red Blood Cells into Peripheral Vein, Percutaneous Approach (ICD-10-PCS; principal; 2020-08-16)
DX: D64.9 Anemia, unspecified (principal)
CPT/HCPCS: 36415; 80048; 81003; 81025; 82272; 85025; 86850; 86900; 86901; 96372; 96374; 99284; J2765; J7030; J7050; P9016

== ENCOUNTER 2021-02-06 12:56 | Emergency (ER) | payer SELFPAY ==
--- OUTSIDE RECORDS SUMMARY | 2021-02-06 12:59 | XMS REPORT | Continuity of Care Document ---
:1980 Author Organization [facility] t Address [address] [place] [address] Care Team Providers Name Role Phone Pcp, Does Not Have A Primary Care Physician Demetrius STANFORD Attending Clinician Basilio LOVE Attending Clinician Problems Condition Condition Condition Status Onset Resolution Last Treating Co mments Source Name Details Category Date Date Treatment Clinician Date Rectal Rectal Disease Active [facility] bleeding bleeding 2-21 ity of 00:00: [place] [address] [place] [address] GI bleed GI bleed Disease Active Unive rs 9-18 ity of 00:00: [address] GIB GIB Disease Active Univers (gastroint (gastroint 9-17 it y of estinal estinal 00:00: [place] bleeding) bleeding) [address] [place] [address] BV BV Disease Active Univers (bacterial (bacterial 5-13 it y of vaginosis[place] [address] [place] [address] UTI UTI Disease Active Univers symptoms symptoms 5-13 ity of 00:00: [place] 00 [facility] Contracept Contracept Disease Active U nivers ion ion 2-05 [place]y of management [place] [address] [place] [address] Yeast Yeast Disease Active Univers infection infection 2-05 ity of of the of the 00:00: [place] vagina vagina 00 Medical Branch Dysmenorrh Dysmenorrh Disease Active U [place] ea ea 2-05 ity of 00:00: [place] 00 [facility] History of History of Disease Active U [place] anxiety anxiety 2-05 ity of 00:00: [place] 00 Medical [facility] Dental Dental Disease Active Univers cavities cavities 2-05 ity of 00:00: [place] 00 [facility] Overweight Overweight Disease Active Overview : Univers 1-30 Formattin ity of 00:00: g of this 00 note Medical might be Branch different from the original. 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 Utility Allergies, Adverse Reactions, Alerts Allergy Allergy Status Severity Reaction(s) Onset Inactive Treating Comm ents Source Name Type Date Date Clinician Penicill Propensi Active Shortness of 2018-06 Univers in ty to Breath 06-15 ity of adverse 00:00: [place] reaction 00 Medical s Branch Social History Social Habit Start Date Stop Date Quantity Comments Source Tobacco use and 2019-04-15 2019-04-15 Never used Universit y of exposure 00:00:00 00:00:00 [facility] Alcohol intake 2019-04-15 2019-04-15 Current University of 00:00:00 00:00:00 non-drinker of [facility] alcohol Branch (finding) Sex Ass[birth year] At [birth year] Universit y of 00:00:00 00:00:00 [facility] Smoking Status Start Date Stop Date Source Never smoker [facility] Branch Medications Ordered Filled Start Stop Current Ordering Indication Dosage Frequency Signature Comments Components Source Medication Medication Date Date Medication? Clinician (SIG) Name Name doxycycline Yes [id number] 100mg Take 1 Univers monohydrate 6-16 capsule by it y of 100 mg 00:00: mouth [place] capsule 00 daily. Medical Take Branch capsule by mouth once daily with a meal for 7 days when acne flares. tretinoin Yes [id number] Apply to Univers 0.025 % 6-16 affected ity of cream 00:00: area(s) at [place] 00 bedtime. Medical Branch propranoloL Yes [id number] 20mg Take 1 Univers 20 mg 9-17 tablet by ity of tablet 00:00: mouth 2 00 (two) Medical times Branch daily. clindamycin 2018-06 Yes [id number] Apply to Univers 1 % 1-06 affected ity of solution 00:00: area[place] 00 (two) Medical times Branch daily. doxycycline 2018-06 Yes [id number] 100mg Take 1 Univers 100 mg 1-06 tablet by ity of tablet 00:00: mouth 2 [place] 00 (two) Medical times Branch daily. SUMAtriptan 2018-06 Yes [id number] Take 25mg Univers 50 mg 0-09 (half ity of tablet 00:00: tablet) at [place] 00 onset of Medical migraine, Branch if not relieved in 2 hours you can take an additional 25mg ferrous 2019- Yes [id number] 325mg Take 1 Uni vers sulfate 3-06 tablet by ity of (IRON) 325 00:00: mouth [place] mg (65 mg 00 daily. Medical iron) Branch tablet Methylcellu Yes [id number] 500mg Take 1 Univers lose, 2-22 tablet by ity of Laxative, 00:00: mouth 2 [place] (FIBER 00 (two) Medical LAXATIVE, times Branch METHYLCELLU daily. LO,) 500 mg tablet hydrocortis Yes [id number] Insert Univers one 2.5 % 2-22 into ity of rectal 00:00: rectum 2 [place] cream 00 (two) Medical times Branch daily. Apply twice daily for one week tamsulosin 2016-06 Yes .4mg Take 1 Unive rs 0.4 mg 24 0-16 capsule by ity of hr capsule 00:00: mouth at [place] as 00 bedtime. Medical Branch Immunizations Ordered Filled Immunization Date Status Comments Sour e Immunization Name Name SARS-COV-2 COVID-19 2020-09-26 Completed Unive rsity of MODERNA VACCINE 00:00:00 [facility] ical Branch Influenza Virus 2018-08-01 Completed Universit y of Vaccine Quad .5 mL 00:00:00 [facility] IM 6+ MO Branch TDAP 2011-12-27 Completed University 00:00:00 [facility] Rubella 2009-12-07 Completed [facility] 00:00:00 [facility] Procedures This patient has no known procedures. Encounters Start End Encounter Admission Attending Care Care Encounter Source Date/Time Date/Time Type Type Clinicians Facility Department ID 2021-02-02 2021-02-02 Telephone [facility] [id number] Univers 00:00:00 00:00:00 Kristyna MULTISPEC [id number] ity of IALTY [id number] [facility] [id number] [facility] [place] [address] Branch [facility] 2020-03-17 2020-03-17 Telephone [facility] [place] [id number] 00:00:00 00:00:00 Rosenda PRIMARY [id number] CARE [id number] [place] [id number] Results This patient has no known results.
[2021-02-06] MEDS ORDERED: METOCLOPRAMIDE 10 MG/2mL INJ ONE (15:14)
[2021-02-06] MEDS ORDERED: DIPHENHYDRAMINE 50 MG/ML VIAL ONE (15:14)
[2021-02-06] MEDS ORDERED: NA CHLORIDE 0.9% 1,000 ML ONE (15:14)
[2021-02-06] MEDS ORDERED: KETOROLAC 30 MG/ML INJ ONE (15:14)
--- NOTE | 2021-02-06 15:44 | ER ---
Nurse's Notes [facility] Name: Maribell Krishnamurthy Age: 40 yrs Sex: Female : 1980 Arrival Date: 02/06/2021 Time: 12:59 Bed DX3 Private MD: Diagnosis: Migraine without aura, not intractable Presentation: 02/06 13:59 Chief complaint: Migraine x 3 days. + photosensitivity and nausea. Coronavirus screen: hb At this time, the client does not indicate any symptoms associated with coronavirus-19. Ebola Screen: No symptoms or risks identified at this time. Initial Sepsis Screen: Does the patient meet any 2 criteria? No. Patient's initial sepsis screen is negative. Does the patient have a suspected source of infection? No. Patient's initial sepsis screen is negative. Risk Assessment: Do you want to hurt yourself or someone else? Patient reports no desire to harm self or others. Onset of symptoms was February 04, 2021. 13:59 Method Of Arrival: Ambulatory hb 13:59 Acuity: NUSRAT 3 hb Historical: - Allergies: 14:00 No Known Allergies; hb - Home Meds: 14:00 Propranolol Oral [Active]; hb - PMHx: 14:00 Headaches; Anxiety; Migraines; hb - Immunization history:: Adult Immunizations up to date, Client reports receiving the 1st dose of the Covid vaccine. - Social history:: Smoking status: Patient denies any tobacco usage or history of. Screenin:00 Abuse screen: Denies threats or abuse. Denies injuries from another. Nutritional iw screening: No deficits noted. Tuberculosis screening: No symptoms or risk factors identified. Fall Risk None identified. Assessment: 15:00 General: Appears Behavior is calm, cooperative. Pain: Complains of pain in forehead. iw Neuro: Level of Consciousness is awake, alert, obeys commands, Oriented to person, place, time, situation, Moves all extremities. Full function. Vital Signs: 13:59 BP 134 / 92; Pulse 85; Resp 16; Temp 98.2; Pulse Ox 100% on R/A; Pain 9/10; hb [place] Coma Score: 15:44 Eye Response: spontaneous(4). Verbal Response: oriented(5). Motor Response: obeys kb commands(6). Total: 15. ED Course: 12:59 Patient arrived in ED. as 13:32 Bbii Segovia FNP-C is PHCP. kb 14:00 Triage completed. hb 14:00 Arm band placed on. hb 14:01 Bibi Segovia FNP-C is PHCP. hb 14:06 Catrachito Greco MD is Attending Physician. kb 14:42 Rabia Buckner, RN is Primary Nurse. iw 14:50 Inserted saline lock: 20 gauge in left antecubital area, using aseptic technique. Blood dh4 collected. Administered Medications: 15:00 Drug: Reglan (metoCLOPramide) 10 mg Route: IVP; Site: left antecubital; iw 15:15 Follow up: Response: No adverse reaction iw 15:09 Drug: NS 0.9% 1000 ml Route: IV; Rate: 1000 ml; Site: left antecubital; iw 15:40 Follow up: IV Status: Completed infusion iw 15:09 Drug: Ketorolac 30 mg Route: IVP; Site: left antecubital; iw 15:30 Follow up: Response: No adverse reaction iw 15:09 Drug: Benadryl (diphenhydrAMINE) 25 mg Route: IVP; Site: left antecubital; iw 15:30 Follow up: Response: No adverse reaction iw Outcome: 15:43 Discharge ordered by . kb 16:03 Discharged to home ambulatory. iw 16:03 Condition: good 16:03 Discharge instructions given to patient, Instructed on discharge instructions, follow up and referral plans. Demonstrated understanding of instructions, follow-up care. 16:04 Patient left the ED. iw Signatures: Bibi Segovia FNP-C FNP-Isabella Landry as Rabia Buckner, RN RN Karina Cardenas, RN RN Randy Ballesteros dh4
--- NOTE | 2021-02-06 15:44 | EDPHYS ---
Physician Documentation [facility] Name: Maribell Krishnamurthy Age: 40 yrs Sex: Female : 1980 Arrival Date: 02/06/2021 Time: 12:59 Bed DX3 Private MD: ED Physician Catrachito Greco HPI: 02/06 16:27 This 40 yrs old Female presents to ER via Ambulatory with complaints of kb Headache. 16:27 The patient complains of pain to the forehead. The patient describes the headache as kb constant, throbbing. Onset: The symptoms/episode began/occurred 3 day(s) ago. Associated signs and symptoms: The patient has no apparent associated signs or symptoms. Severity of symptoms: At its worst the pain was moderate, in the emergency department the pain is unchanged. Headache History: The patient has had previous headaches and this one is similar to previous episodes. The symptoms are alleviated by nothing. the symptoms are aggravated by lights. The patient has not experienced similar symptoms in the past. The patient has not recently seen a physician. Pt reports migraine for 3 days. History of migraines and this one feels similar, just lasting longer. Historical: - Allergies: 14:00 No Known Allergies; hb - Home Meds: 14:00 Propranolol Oral [Active]; hb - PMHx: 14:00 Headaches; Anxiety; Migraines; hb - Immunization history:: Adult Immunizations up to date, Client reports receiving the 1st dose of the Covid vaccine. - Social history:: Smoking status: Patient denies any tobacco usage or history of. ROS: 16:30 Constitutional: Negative for fever, chills, and weight loss. kb 16:30 Abdomen/GI: Positive for nausea and vomiting, Negative for abdominal pain. 16:30 Neuro: Positive for headache. 16:30 All other systems are negative. Exam: 16:29 Constitutional: This is a well developed, well nourished patient who is awake, alert, kb and in no acute distress. Head/Face: Normocephalic, atraumatic. ENT: Moist Mucous membranes Cardiovascular: Regular rate and rhythm with a normal S1 and S2. No gallops, murmurs, or rubs. No pulse deficits. Respiratory: Respirations even and unlabored. No increased work of breathing, no retractions or nasal flaring. Abdomen/GI: Soft, non-tender. No distention Skin: Warm, dry with normal turgor. Normal color. MS/ Extremity: Pulses equal, no cyanosis. Neurovascular intact. Full, normal range of motion. Neuro: Awake and alert, GCS 15, oriented to person, place, time, and situation. Moves all extremities. Normal gait. Psych: Awake, alert, with orientation to person, place and time. Behavior, mood, and affect are within normal limits. Vital Signs: 13:59 BP 134 / 92; Pulse 85; Resp 16; Temp 98.2; Pulse Ox 100% on R/A; Pain 9/10; hb [place] Coma Score: 15:44 Eye Response: spontaneous(4). Verbal Response: oriented(5). Motor Response: obeys kb commands(6). Total: 15. MDM: 14:05 Patient medically screened. kb 15:44 Data reviewed: vital signs, nurses notes. Data interpreted: Pulse oximetry: on room air kb is 100 %. Interpretation: normal. Counseling: I had a detailed discussion with the patient and/or guardian regarding: the historical points, exam findings, and any diagnostic results supporting the discharge/admit diagnosis, the need for outpatient follow up, a family practitioner, to return to the emergency department if symptoms worsen or persist or if there are any questions or concerns that arise at home. Response to treatment: the patient's symptoms have resolved after treatment. Administered Medications: 15:00 Drug: Reglan (metoCLOPramide) 10 mg Route: IVP; Site: left antecubital; iw 15:15 Follow up: Response: No adverse reaction iw 15:09 Drug: NS 0.9% 1000 ml Route: IV; Rate: 1000 ml; Site: left antecubital; iw 15:40 Follow up: IV Status: Completed infusion iw 15:09 Drug: Ketorolac 30 mg Route: IVP; Site: left antecubital; iw 15:30 Follow up: Response: No adverse reaction iw 15:09 Drug: Benadryl (diphenhydrAMINE) 25 mg Route: IVP; Site: left antecubital; iw 15:30 Follow up: Response: No adverse reaction iw Disposition: 02/07 07:47 Co-signature as Attending Physician, Catrachito Greco MD I agree with the assessment and jannie plan of care. Disposition Summary: 02/06/21 15:43 Discharge Ordered Location: Home kb Condition: Stable kb Diagnosis - Migraine without aura, not intractable kb Followup: kb - With: Emergency Department - When: As needed - Reason: Worsening of condition Followup: kb - With: Private Physician - When: 2 - 3 days - Reason: Recheck today's complaints, Continuance of care, Re-evaluation by your physician Discharge Instructions: - Discharge Summary Sheet kb - Migraine Headache, Erot-vn-Hwes kb Forms: - Medication Reconciliation Form kb - Thank You Letter kb - Antibiotic Education kb - Prescription Opioid Use kb - Family Work Release iw Signatures: Bibi Segovia, MILADYSC [employer]Y [employer] CASHIER-Catrachito Cunningham MD MD cha Williams, Irene, RN RN iw Karina Cardenas, RN RN
[2021-02-06 16:09] VITALS: BP 134/92; TEMP 98.2; O2SAT 100
== END 2021-02-06 16:04 | disposition home or self-care (01) ==
LOC: ER 12:56
DX: G43.009 Migraine without aura, not intractable, without status migrainosus (principal); F41.9 Anxiety disorder, unspecified
CPT/HCPCS: 96361; 96374; 96375; 99283; J1200; J2765; J7030

== ENCOUNTER 2021-11-13 03:10 | Emergency (ER) | payer SELFPAY ==
--- OUTSIDE RECORDS SUMMARY | 2021-11-13 03:13 | XMS REPORT | Continuity of Care Document ---
:1980 Author Organization [facility] t Address [address] [place] [address] Care Team Providers Name Role Phone PCP, DOES NOT HAVE A Primary Care Physician Unavailable ANTONIA Attending Clinician Unavailable Gopal Sigala Attending Clinician Gopal DELANEY Attending Clinician Unavailable Doctor Unassigned, Name Attending Clinician Unavailable Gopal NORRIS Attending Clinician Unavailable Basilio LOVE Attending Clinician Problems Condition Condition Condition Status Onset Resolution Last Treating Co mments Source Name Details Category Date Date Treatment Clinician Date Rectal Rectal Disease Active Univers bleeding bleeding 2-21 ity of 00:00: [address] GI bleed GI bleed Disease Active Unive rs 9-18 ity of 00:00: [address] GIB GIB Disease Active Univers (gastroint (gastroint 9-17 it y of estinal estinal 00:00: [place] bleeding) bleeding) 00 [facility] BV BV Disease Active Univers (bacterial (bacterial 5-13 it y [place] vaginosis[place] [address] [place] [address] UTI UTI Disease Active Univers symptoms symptoms 5-13 ity of 00:00: [address] Contracept Contracept Disease Active U nivers ion ion 2-05 [place] of management [place] [facility] Yeast Yeast Disease Active Univers infection infection [...] Overweight Overweight Disease Active Overview : Univers -30 Formattin ity of 00:00: g of this 00 note Medical might be Branch different from the original. 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 SARS-CoV-2 [place] [facility] (event) Branch Alcohol intake 2021-06-15 2021-06-[address] [facility] 00:00:00 00:00:00 non-drinker of [facility] alcohol [place] (finding) Tobacco use and 2012-09-19 2012-09-19 Never used Universit y of exposure 00:00:00 00:00:00 [facility] Sex Ass[birth year] At [birth year] Universit y of 00:00:00 00:00:00 [facility] Smoking Status Start Date Stop Date Source Never smoker [facility] Medical Branch Medications Ordered Filled Start Stop Current Ordering Indication Dosage Frequency Signature Comments Components Source Medication Medication Date Date Medication? Clinician (SIG) Name Name hydrocortis Yes [id number] Insert Univers one 2.5 % 1-06 into ity of rectal 00:00: rectum 2 [place] cream 00 (two) Medical times Branch daily. hydrocortis Yes [id number] Insert Univers one 2.5 % 1-06 into ity of rectal 00:00: rectum 2 [place] cream 00 (two) Medical times Branch daily. TRIAMCINOLO 2020-06 Yes [id number] Apply to Univers NE 2-17 area(s) at ity of ACETONIDE-H 00:00[place] YDROQUINONE 00 Medical -TRETINOIN Branch 0.025-4-0.0 25 % TOPICAL CREAM TRIAMCINOLO 2020-06 Yes [id number] Apply to Univers NE 2-17 area(s) at ity of ACETONIDE-H 00:00[place] YDROQUINONE 00 Medical -TRETINOIN Branch 0.025-4-0.0 25 % TOPICAL CREAM tranexamic 2020-06 Yes [id number] 325mg Take 0.5 Univers acid 650 mg 2-01 tablets by it y of tablet 00:00: mouth 2 (two) Medical times Branch daily. tranexamic 2020-06 Yes [id number] 325mg Take 0.5 Univers acid 650 mg 2-01 tablets by it y of tablet 00:00: mouth 2 [place] (two) Medical times Branch daily. doxycycline Yes [id number] 100mg Take 1 Univers monohydrate 6-16 capsule by it y of 100 mg 00:00: mouth [place] capsule 00 daily. Medical Take Branch capsule by mouth once daily with a meal for 7 days when acne flares. tretinoin Yes [id number] Apply to Univers 0.025 % 6-16 affected ity of cream 00:00: area(s) at [place] 00 bedtime. Medical Branch doxycycline Yes [id number] 100mg Take 1 Univers monohydrate 6-16 capsule by it y of 100 mg 00:00: mouth [place] capsule 00 daily. Medical Take Branch capsule by mouth once daily with a meal for 7 days when acne flares. tretinoin Yes [id number] Apply to Univers 0.025 % 6-16 affected ity of cream 00:00: area(s) at [place] 00 bedtime. Medical Branch propranoloL 2020-0 Yes [id number] 20mg Take 1 Univers 20 mg 9-17 tablet by ity of tablet 00:00: mouth 2 (two) Medical times Branch daily. propranoloL 2019-0 Yes [id number] 20mg Take 1 Univers 20 mg 9-17 tablet by ity of tablet 00:00: mouth 2 [place] (two) Medical times Branch daily. clindamycin 2018-06 Yes [id number] Apply to Univers 1 % 1-06 affected ity of solution 00:00: area[place] 2 [place] (two) Medical times Branch daily. doxycycline 2018-06 Yes [id number] 100mg Take 1 Univers 100 mg 1-06 tablet by ity of tablet 00:00: mouth 2 [place] 00 (two) Medical times Branch daily. clindamycin 2018-06 Yes [id number] Apply to Univers 1 % 1-06 affected ity of solution 00:00: area[place]s) 2 [place] (two) Medical times Branch daily. doxycycline 2018-06 Yes [id number] 100mg Take 1 Univers 100 mg 1-06 tablet by ity of tablet 00:00: mouth 2 00 (two) Medical times Branch daily. SUMAtriptan 2018-06 Yes [id number] Take 25mg Univers 50 mg 0-09 (half ity of tablet 00:00: tablet) at [place] [address] onset of Medical migraine, Branch if not relieved in 2 hours you can take an additional 25mg SUMAtriptan 2018-06 Yes [id number] Take 25mg Univers 50 mg 0-09 (half ity of tablet 00:00: tablet) at [place] 00 onset of Medical migraine, Branch if not relieved in 2 hours you can take an additional 25mg ferrous Yes [id number] 325mg Take 1 Uni vers sulfate 3-06 tablet by ity of (IRON) 325 00:00: mouth [place] mg (65 mg 00 daily. Medical iron) Branch tablet ferrous Yes [id number] 325mg Take 1 Uni vers sulfate 3-06 tablet by ity of (IRON) 325 00:00: mouth [place] mg (65 mg 00 daily. Medical iron) Branch tablet Methylcellu Yes [id number] 500mg Take 1 Univers lose, 2-22 tablet by ity of Laxative, 00:00: mouth 2 [place] (FIBER 00 (two) Medical LAXATIVE, times Branch METHYLCELLU daily. LO,) 500 mg tablet hydrocortis Yes [id number] Insert Univers one 2.5 % 2-22 into ity of rectal 00:00: rectum 2 [place] cream 00 (two) Medical times Branch daily. Apply twice daily for one week Methylcellu Yes [id number] 500mg Take 1 Univers lose, 2-22 tablet by ity of Laxative, 00:00: mouth 2 [place] (FIBER 00 (two) Medical LAXATIVE, times Branch METHYLCELLU daily. LO,) 500 mg tablet hydrocortis Yes [id number] Insert Univers one 2.5 % 2-22 into ity of rectal 00:00: rectum 2 [place] cream 00 (two) Medical times Branch daily. Apply twice daily for one week tamsulosin 2016-06 Yes .4mg Take 1 Unive rs 0.4 mg 24 0-16 capsule by ity of hr capsule 00:00: mouth at [place] 00 bedtime. Medical Branch tamsulosin 2016-06 Yes .4mg Take 1 Unive rs 0.4 mg 24 0-16 capsule by ity of hr capsule 00:00: mouth at [place] 00 bedtime. [facility] Immunizations Ordered Filled Immunization Date Status Comments [facility] Immunization Name Name SARS-COV-2 COVID-19 2020-09-26 Completed Unive rsity of MODERNA VACCINE 00:00:00 [facility] SARS-COV-2 COVID-19 2020-09-26 Completed Unive rsity of MODERNA VACCINE 00:00:00 [facility] Influenza Virus 2018-08-01 Completed Universit y of Vaccine Quad .5 mL 00:00:00 [facility] IM 6+ MO Branch Influenza Virus 2018-08-01 Completed Universit y of Vaccine Quad .5 mL 00:00:00 [facility] 6+ MO Branch TDAP 2011-12-27 Completed University 00:00:00 [facility] TDAP 2011-12-27 Completed University 00:00:00 [facility] Rubella 2009-12-07 Completed University of 00:00:00 [facility] Rubella 2009-12-[address] [facility] 00:00:00 [facility] Vital Signs Vital Name Observation Time Observation Value Comments Source Systolic blood 2021-06-15 16:33:00 140 mm[Hg] Univer sity of pressure [facility] Diastolic blood 2021-06-15 16:33:00 84 mm[Hg] Unive rsity of pressure [facility] Heart rate 2021-06-15 16:33:00 90 [facility] Body temperature 2021-06-15 16:33:00 36.78 Delphine [facility] [place] [facility] rate 2021-06-15 16:33:00 18 /min [facility] Body height 2021-06-15 16:33:00 152.4 cm [facility] Body weight 2021-06-15 16:33:00 70.308 kg [facility] BMI 2021-06-15 16:33:00 30.27 kg/m2 [facility] Oxygen saturation in 2021-06-15 16:33:00 100 /min [facility] Arterial blood by [facility] Pulse oximetry [place] Procedures Procedure Date / Time Performed Performing Clinician [facility] PATIENT QUESTIONNAIRE 2021-06-15 06:01:00 Doctor Unassigned, No [facility] Name [facility] Encounters Start End Encounter Admission Attending Care Care Encounter Source Date/Time Date/Time Type Type Clinicians Facility Department ID 2021-11-24 2021-11-24 [facility] [id number] Univers 13:30:00 13:30:00 PATY [id number] judy o [facility] 2021-11-17 2021-11-17 Outpatient R [facility] [id number] Univers 09:30:00 [facility]30[id number] 2021-11-10 [facility] [id number] Univers 14:00:00 14:00:00 PATY [id number] ity o [facility] 2021-11-10 2021-11-10 [facility] [id number] Univers 14:00:00 14:00:00 PATY renner o [facility] 2021-06-15 2021-06-15 Office [facility] [id number] Univers 10:00:00 10:30:00 [facility] [id number] ity of CANCER [id number] [facility] [id number] [place] [address] Branch 2021-06-15 2021-06-15 Outpatient R [facility] [id number] Univers 10:00:00 10:00:00 [facility] 2021-06-15 2021-06-15 Orders Doctor NAA [id number] 00:00:00 00:00:00 Only Unassigned, EAN [id number] ity of [place] [facility] [id number] [facility] [id number] [address] 2020-09-26 2020-09-26 [facility] [id number] Univers 10:40:00 10:19:47 SAURAV ity [facility] 2020-03-17 2020-03-17 Telephone [facility] [id number] 00:00:00 00:00:00 [place] PRIMARY [id number] [facility] [id number] [id number] Results Test Description Test Time Test Comments Results Result Comments Source CULTURE, URINE 2021-08-18 SPECIMEN NUMBER: 11:[id number] [id number] CULTURE, URINE SPECIMEN NUMBER: [id number] SPECIMEN COMMENT: URINE SOURCE: URINE REPORT STATUS: FINAL FINAL REPORT: 08/18/2021 10-50,000 CFU/ML UROGENITAL DAHIANA PRESENT NO COMMON PATHOGENS UNLESS OTHERWISE INDICATED, ALL TESTING PERFORMED [facility] [address] [place] [address] DISHCLOTH FOLDER: MAVIS SHAH M.D. CLIA NUMBER [id number] [facility] [place]. [id number]
--- NOTE | 2021-11-13 03:58 | ER ---
Nurse's Notes [facility] Name: Maribell Krishnamurthy Age: 41 yrs Sex: Female : 1980 Arrival Date: 11/13/2021 Time: 03:11 Bed 8 Private MD: Diagnosis: Opiod withdrawal Presentation: 11/13 03:58 Chief complaint: Patient states: I was prescribed tramadol for my headaches and I was kd3 taking too much and now I have ran out. I don't feel good and I think I am in withdrawal. Coronavirus screen: Vaccine status: Patient reports receiving the 2nd dose of the covid vaccine. Ebola Screen: No symptoms or risks identified at this time. Initial Sepsis Screen: Does the patient meet any 2 criteria? No. Patient's initial sepsis screen is negative. Does the patient have a suspected source of infection? No. Patient's initial sepsis screen is negative. Risk Assessment: Do you want to hurt yourself or someone else? Patient reports no desire to harm self or others. Onset of symptoms was November 13, 2021. 03:58 Acuity: NUSRAT 4 kd3 03:58 Method Of Arrival: Ambulatory kd3 Triage Assessment: 03:58 General: Appears uncomfortable, Behavior is calm, cooperative. 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 - Social history:: Smoking status: unknown. Screenin:58 Abuse screen: Denies threats or abuse. Denies injuries from another. Nutritional kd3 screening: No deficits noted. Tuberculosis screening: No symptoms or risk factors identified. Fall Risk None identified. Assessment: 03:56 General: Appears uncomfortable, ill, Behavior is calm, cooperative. Pain: Complains of kd3 pain in generalized body aches. Neuro: Level of Consciousness is awake, alert, obeys commands, Oriented to person, place, time, situation. Cardiovascular: Patient's skin is warm and dry. Respiratory: Airway is patent Trachea midline Respiratory effort is even, unlabored. 04:02 Reassessment: pt given resources for rehab facilities. kd3 Vital Signs: 03:33 BP 180 / 94; Pulse 93; Resp 18; Temp 98.3; Pulse Ox 100% on R/A; Weight 72.57 kg; oe Height 5 ft. 0 in. (152.40 cm); 03:33 Body Mass Index 31.25 (72.57 kg, 152.40 cm) oe ED Course: 03:11 Patient arrived in ED. ja2 03:18 Earl Chacko DO is Attending Physician. ms3 03:39 Marta Geronimo, RN is Primary Nurse. kd3 03:58 Patient has correct armband on for positive identification. kd3 03:58 Arm band placed on right wrist. kd3 03:58 No provider procedures requiring assistance completed. Patient did not have IV access kd3 during this emergency room visit. 03:59 Triage completed. kd3 Administered Medications: No medications were administered Medication: 04:00 VIS not applicable for this client. kd3 Outcome: 03:57 Discharge ordered by MD. ms3 03:58 Discharged to home ambulatory. kd3 03:58 Condition: stable 03:58 Discharge instructions given to patient, Instructed on discharge instructions, follow up and referral plans. Demonstrated understanding of instructions, follow-up care. 04:03 Patient left the ED. kd3 Signatures: Jerald Rodriguez Earl Chacko DO DO ms3 Jackie Sigala ja2 Marta Geronimo, RN RN kd3
[2021-11-13 04:07] VITALS: BP 180/94; TEMP 98.3; O2SAT 100
--- NOTE | 2021-11-14 04:05 | EDPHYS ---
Physician Documentation [facility] Name: Maribell Krishnamurthy Age: 41 yrs Sex: Female : 1980 Arrival Date: 11/13/2021 Time: 03:11 Bed 8 Private MD: ED Physician Earl Chacko HPI: 11/13 03:57 This 41 yrs old Female presents to ER via Ambulatory with complaints of ms3 Substance Withdraw. 03:57 Patient states she has been taking her father's Tramadol for the previous 3 years. ms3 Patient states she is currently out of Tramadol. Patient states she is feeling anxious. Patient denies pain. Patient denies alleviating or inciting factors.. Severity of symptoms: At their worst the symptoms were moderate in the emergency department the symptoms are unchanged. 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 - Social history:: Smoking status: unknown. ROS: 03:57 Constitutional: Negative for fever, and chills. Cardiovascular: Negative for chest ms3 pain, and palpitations. Respiratory: Negative for shortness of breath, cough, wheezing, and pleuritic chest pain. 03:57 Skin: Negative for injury, rash, and discoloration. 03:57 Abdomen/GI: Positive for nausea. 03:57 Psych: Positive for anxiety. Exam: 03:57 Constitutional: This is a well developed, well nourished patient who is awake, alert, ms3 and in no acute distress. Head/Face: Normocephalic, atraumatic. Eyes: Pupils equal round and reactive to light, extra-ocular motions intact. Lids and lashes normal. Conjunctiva and sclera are non-icteric and not injected. Periorbital areas with no swelling, redness, or edema. Neck: Trachea midline, no cervical lymphadenopathy. Supple, full range of motion without nuchal rigidity, or vertebral point tenderness. No Meningismus. Chest/axilla: Normal chest wall appearance and motion. Nontender with no deformity. Cardiovascular: Regular rate and rhythm with a normal S1 and S2. No gallops, murmurs, or rubs. Normal PMI, no JVD. No pulse deficits. Respiratory: Lungs have equal breath sounds bilaterally, clear to auscultation and percussion. No rales, rhonchi or wheezes noted. No increased work of breathing, no retractions or nasal flaring. Abdomen/GI: Soft, non-tender, with normal bowel sounds. No distension or tympany. No guarding or rebound. No evidence of tenderness throughout. Skin: Warm, dry with normal turgor. Normal color with no rashes, no lesions, and no evidence of cellulitis. MS/ Extremity: Pulses equal, no cyanosis. Neurovascular intact. Full, normal range of motion. 03:57 Psych: Behavior/mood is anxious, Affect is calm, Oriented to person, place, time, Patient has no thoughts/intents to harm self or others. Judgement / Insight is normal. Memory is normal. Vital Signs: 03:33 BP 180 / 94; Pulse 93; Resp 18; Temp 98.3; Pulse Ox 100% on R/A; Weight 72.57 kg; oe Height 5 ft. 0 in. (152.40 cm); 03:33 Body Mass Index 31.25 (72.57 kg, 152.40 cm) oe MDM: 03:54 Patient medically screened. ms3 03:57 Differential Diagnosis Opioid withdrawal vs Viral illness. Data reviewed: vital signs, ms3 nurses notes, and as a result, I will discharge patient. Counseling: I had a detailed discussion with the patient and/or guardian regarding: the historical points, exam findings, and any diagnostic results supporting the discharge/admit diagnosis, the need for outpatient follow up, to return to the emergency department if symptoms worsen or persist or if there are any questions or concerns that arise at home. ED course: Discussed opioid withdrawal symptoms and recovery center options with patient. Patient to follow up with recovery center in 2-3 days. Patient understands/ agrees with plan. All questions answered. Return precautions given to include worsening symptoms or any other concerns.. Administered Medications: No medications were administered Disposition Summary: 11/13/21 03:57 Discharge Ordered Location: Home ms3 Condition: Stable ms3 Diagnosis - Opiod withdrawal ms3 Discharge Instructions: - Discharge Summary Sheet ms3 - Opioid Withdrawal ms3 - Opioid Withdrawal Treatment ms3 Forms: - Medication Reconciliation Form ms3 - Thank You Letter ms3 - Antibiotic Education ms3 - Prescription Opioid Use ms3 Signatures: Earl Chacko, DO LOVE ms3 Marta Geronimo, RN RN kd3
== END 2021-11-13 04:03 | disposition home or self-care (01) ==
LOC: ER 03:10
DX: F11.23 Opioid dependence with withdrawal (principal); F41.9 Anxiety disorder, unspecified
CPT/HCPCS: 99281

== ENCOUNTER 2021-11-24 15:24 | Emergency (ER) | payer SELFPAY ==
--- OUTSIDE RECORDS SUMMARY | 2021-11-24 15:27 | XMS REPORT | Continuity of Care Document ---
:1980 Author Organization [facility] t Address [address] [place] [address] Care Team Providers Name Role Phone Pcp, Does Not Have A Primary Care Physician Gopal Sigala Attending Clinician Basilio LOVE Attending Clinician Problems Condition Condition Condition Status Onset Resolution Last Treating Co mments Source Name Details Category Date Date Treatment Clinician Date Rectal Rectal Disease Active Univers bleeding bleeding 2-21 ity of 00:00: [place] 00 [facility] GI bleed GI bleed Disease Active Unive rs 9-18 ity of 00:00: [address] GIB GIB Disease Active Univers (gastroint (gastroint 9-17 it y of estinal estinal 00:00: [place] bleeding) bleeding) 00 [facility] BV BV Disease Active Univers (bacterial (bacterial 5-13 it y of vaginosis[place] [facility] UTI UTI Disease Active Univers symptoms symptoms 5-13 ity of 00:00: [place] 00 [facility] Contracept Contracept Disease Active U nivers ion ion 2-05 [place] management [place] [facility] Yeast Yeast Disease Active Univers infection infection 2-05 ity of of the of the 00:00: [place] vagina vagina 00 [facility] Dysmenorrh Dysmenorrh Disease Active U [place] ea ea 2-05 ity of 00:00: [place] 00 [facility] History of History of Disease Active U [place] anxiety anxiety 2-05 ity of 00:00: Medical Branch Dental Dental Disease Active Univers cavities cavities 2-05 ity of 00:00: Medical Branch Overweight Overweight Disease Active Overview : Univers 1-30 Formattin ity of 00:00: g of this note Medical might be Branch different from the original. 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 Allergies, Adverse Reactions, Alerts Allergy Allergy Status Severity Reaction(s) Onset Inactive Treating Comm ents Source Name Type Date Date Clinician Penicill Propensi Active Shortness of 2018-06 Univers in ty to Breath 1-06 ity of adverse 00:00: [place] reaction 00 Medical s Branch Social History Social Habit Start Date Stop Date Quantity Comments Source Exposure to 2021-11-14 2021-11-24 Not sure [facility] SARS-CoV-2 00:00:00 10:05:00 [facility] (event) Branch Alcohol intake 2021-11-24 2021-11-24 Current University of 00:00:00 00:00:00 non-drinker of [facility] alcohol Branch (finding) Tobacco use and 2012-09-19 2012-09-19 Never used Universit y of exposure 00:00:00 00:00:00 [facility][birth year] [facility] [birth year] [facility]00 00:00:00 [facility] Smoking Status Start Date Stop Date Source Never smoker [facility] Medical [place] Medications Ordered Filled Start Stop Current Ordering Indication Dosage Frequency Signature Comments Components Source Medication Medication Date Date Medication? Clinician (SIG) Name Name hydrocortis Yes [id number] Insert Univers one 2.5 % -06 into ity of rectal 00:00: rectum 2 [place] cream (two) Medical times Branch daily. TRIAMCINOLO 2020-06 Yes [id number] Apply to [facility] -17 area(s) at ity of ACETONIDE-H 00:00: bedtime. [facility] YDROQUINONE Medical -TRETINOIN Branch 0.025-4-0.0 25 % TOPICAL CREAM tranexamic 2020-06 Yes [id number] 325mg Take 0.5 Univers acid 650 mg 2-01 tablets by it y of tablet 00:00: mouth 2 [place] 00 (two) Medical times Branch daily. doxycycline Yes [id number] 100mg Take 1 Univers monohydrate 6-16 capsule by it y of 100 mg 00:00: mouth [place] capsule 00 daily. Medical Take Branch capsule by mouth once daily with a meal for 7 days when acne flares. tretinoin Yes [id number] Apply to Univers 0.025 % 6-16 affected ity of cream 00:00: area(s) at [place] 00 bedtime. Medical Branch propranoloL Yes [id number] 20mg Take 1 Univers 20 mg 9-17 tablet by ity of tablet 00:00: mouth 2 [place] 00 (two) Medical times Branch daily. clindamycin 2018-06 Yes [id number] Apply to Univers 1 % 1-06 affected ity of solution 00:00: area(s) 2 [facility] ([facility] times Branch daily. doxycycline 2018-06 Yes [id number] 100mg Take 1 Univers 100 mg 1-06 tablet by ity of tablet 00:00: mouth 2 [place] 00 (two) Medical times Branch daily. SUMAtriptan 2018-06 Yes [id number] Take 25mg Univers 50 mg 0-09 (half ity of tablet 00:00: tablet) at [place] 00 onset of Medical migraine, Branch if not relieved in 2 hours you can take an additional 25mg ferrous Yes [id number] 325mg Take 1 Uni vers sulfate 3-06 tablet by ity of (IRON) 325 00:00: mouth [place] mg (65 mg 00 daily. Medical iron) Branch tablet Methylcellu Yes [id number] 500mg Take 1 Univers lose, 2-22 tablet by ity of Laxative, 00:00: mouth 2 [place] (FIBER 00 (two) Medical LAXATIVE, times Branch METHYLCELLU daily. LO,) 500 mg tablet hydrocortis Yes [id number] Insert Univers one 2.5 % 2-22 into [...] Completed Unive rsity of MODERNA VACCINE 00:00:00 [place] Med ical Branch Influenza Virus 2018-08-01 Completed Universit y of Vaccine Quad .5 mL 00:00:00 [facility] IM 6+ MO Branch TDAP 2011-12-27 Completed [facility] 00:00:00 [facility] Rubella 2009-12-07 Completed [facility] 00:00:00 [facility] Vital Signs Vital Name Observation Time Observation Value Comments Source Systolic blood 2021-11-24 15:15:00 134 mm[Hg] Univer sity of pressure [facility] Diastolic blood 2021-11-24 15:15:00 84 mm[Hg] Unive rsity of pressure [facility] Heart rate 2021-11-24 15:15:00 85 /min [facility] Respiratory rate 2021-11-24 15:15:00 20 /min [facility] Body height 2021-11-24 15:15:00 152.4 cm [facility] Body weight 2021-11-24 15:15:00 68.72 kg [facility] BMI 2021-11-24 15:15:00 29.59 kg/m2 [facility] Oxygen saturation in 2021-11-24 15:15:00 99 /min [facility] Arterial blood by [facility] Pulse oximetry Branch Procedures This patient has no known procedures. Encounters Start End Encounter Admission Attending Care Care Encounter Source Date/Time Date/Time Type Type Clinicians Facility Department ID 2021-11-24 2021-11-24 Office [facility] [id number] 10:00:00 10:30:00 Visit [facility] [id number] ity of CANCER [id number] [facility] - [id number] [facility] Branch 2020-03-17 2020-03-17 Telephone [facility] [id number] 00:00:00 00:00:00 [facility] [id number] CARE [id number] P[facility]ILLION [id number] Results Test Description Test Time Test Comments Results Result Comments Source CULTURE, URINE 2021-08-18 SPECIMEN NUMBER: 11:07:11 [id number] CULTURE, URINE SPECIMEN NUMBER: [id number] SPECIMEN COMMENT: URINE SOURCE: URINE REPORT STATUS: FINAL FINAL REPORT: 08/18/2021 10-50,000 CFU/ML UROGENITAL DAHIANA PRESENT NO COMMON PATHOGENS UNLESS OTHERWISE INDICATED, ALL TESTING PERFORMED [facility] [address] [place] [address] FILENET DEVELOPER: MAVIS SHAH M.D. CLIA NUMBER [id number] [facility] [place]. [id number]
--- NOTE | 2021-11-24 16:20 | RAD REPORT ---
EXAM DESCRIPTION: CT - Head Brain Wo Cont - 11/24/2021 4:01 pm CLINICAL HISTORY: Vertigo, peripheral COMPARISON: No comparisons TECHNIQUE: All CT scans are performed using dose optimization technique as appropriate and may inclu de automated exposure control or mA/KV adjustment according to patient size. FINDINGS: No intracranial hemorrhage, hydrocephalus or extra-axial fluid collection.No areas of brai n edema or evidence of midline shift. Suspected crowding at the foramen magnum likely reflecting a Ch iari 1 malformation. Streak artifact limits definitive characterization and measurement. The paranasal sinuses and mastoids are clear. The calvarium is intact. IMPRESSION: No acute intracranial abnormality. Possible Chiari 1 malformation. MRI of the brain and cervical spine could better assess.
[2021-11-24 17:02] LABS: Urine Blood 1+ (Negative); Urine Glucose Negative (Negative); Urine Protein Negative (Negative); Urine Specific Gravity 1.025 (1.005-1.030)
[2021-11-24 17:06] LABS: Absolute Lymphocytes (CBC) 1.2 K/uL (0.7-4.9); Hematocrit 30.1 % (36.0-45.0); Lymphocytes % 11.2 % (15.3-44.8); MPV 8.5 fL (7.6-11.3); RBC Red Blood Cell Count 4.92 M/uL (3.86-4.86)
[2021-11-24 17:08] LABS: Urine Bacteria <20 /HPF (<20); Urine RBC <5 /HPF (NONE SEEN)
[2021-11-24 17:20] LABS: Albumin 4.1 g/dL (3.4-5.0); Bilirubin Total 0.2 mg/dL (0.2-1.0); Potassium 3.5 mmol/L (3.5-5.1); Protein, Total 7.9 g/dL (6.4-8.2)
--- NOTE | 2021-11-24 18:50 | EDPHYS ---
Physician Documentation [facility] Name: Maribell Krishnamurthy Age: 41 yrs Sex: Female : 1980 Arrival Date: 11/24/2021 Time: 15:28 Bed 15 Private MD: ED Physician Chauncey Jimenez HPI: 11/24 16:19 This 41 yrs old Female presents to ER via EMS with complaints of Vertigo. ma2 16:19 Associated signs and symptoms: Pertinent negatives: altered mental status, fever, ma2 nausea, paresthesias, Photophobia sinus congestion, weakness, vertigo. Severity of symptoms: At its worst the pain was very mild, in the emergency department the pain has resolved. -year-old female, history of Azevedo's palsy, who presents with left ear pain and episodic vertigo that she describes only when she turn her head to the right, was sudden on onset and off last for few seconds, which she feels the room around her is spinning, she also threw up during these episodes, at this time all symptom has resolved patient has no symptom no focal weakness that she is able to walk with no problems,. 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 - Social history:: Smoking status: Patient denies any tobacco usage or history of. - Family history:: not pertinent. ROS: 16:19 Constitutional: Negative for fever, chills, and weight loss. ma2 16:19 All other systems are negative. Exam: 16:19 Constitutional: This is a well developed, well nourished patient who is awake, alert, ma2 and in no acute distress. Head/Face: Normocephalic, atraumatic. Eyes: Pupils equal round and reactive to light, extra-ocular motions intact. Lids and lashes normal. Conjunctiva and sclera are non-icteric and not injected. Cornea within normal limits. Periorbital areas with no swelling, redness, or edema. ENT: Nares patent. No nasal discharge, no septal abnormalities noted. Tympanic membranes are normal and external auditory canals are clear. Oropharynx with no redness, swelling, or masses, exudates, or evidence of obstruction, uvula midline. Mucous membranes moist. Neck: Trachea midline, no thyromegaly or masses palpated, and no cervical lymphadenopathy. Supple, full range of motion without nuchal rigidity, or vertebral point tenderness. No Meningismus. Chest/axilla: Normal chest wall appearance and motion. Nontender with no deformity. No lesions are appreciated. Cardiovascular: Regular rate and rhythm with a normal S1 and S2. No gallops, murmurs, or rubs. Normal PMI, no JVD. No pulse deficits. Respiratory: Lungs have equal breath sounds bilaterally, clear to auscultation and percussion. No rales, rhonchi or wheezes noted. No increased work of breathing, no retractions or nasal flaring. Abdomen/GI: Soft, non-tender, with normal bowel sounds. No distension or tympany. No guarding or rebound. No evidence of tenderness throughout. Back: No spinal tenderness. No costovertebral tenderness. Full range of motion. Skin: Warm, dry with normal turgor. Normal color with no rashes, no lesions, and no evidence of cellulitis. MS/ Extremity: Pulses equal, no cyanosis. Neurovascular intact. Full, normal range of motion. Neuro: Awake and alert, GCS 15, oriented to person, place, time, and situation. Cranial nerves II-XII grossly intact. Motor strength 5/5 in all extremities. Sensory grossly intact. Cerebellar exam normal. Normal gait. Vital Signs: 15:36 BP 124 / 101; Pulse 91; Resp 18; Temp 97.8; Pulse Ox 100% on R/A; Weight 68.49 kg; ph Height 5 ft. 2 in. (157.48 cm); 16:30 BP 120 / 76; Pulse 81; Resp 18; Pulse Ox 99% on R/A; ph 17:30 BP 118 / 86; Pulse 74; Resp 18; Pulse Ox 99% on R/A; ph 18:30 BP 123 / 76; Pulse 82; Resp 19; Temp 98.0; Pulse Ox 99% on R/A; ph 15:36 Body Mass Index 27.62 (68.49 kg, 157.48 cm) ph MDM: 15:32 Patient medically screened. ma2 16:19 Differential diagnosis: hypoglycemia, hyponatremia, migraine, tension headache. Data ma2 reviewed: vital signs, nurses notes, EMS record. Counseling: I had a detailed discussion with the patient and/or guardian regarding: the historical points, exam findings, and any diagnostic results supporting the discharge/admit diagnosis, the presence of at least one elevated blood pressure reading (>120/80) during this emergency department visit, the need for outpatient follow up. Response to treatment: the patient's symptoms have markedly improved after treatment. 18:49 ED course: All symptoms resolved patient would like to be discharged. [facility] 11/24 15:50 Order name: CBC with Diff; Complete Time: 17:46 [facility] 11/24 15:50 Order name: CMP; Complete Time: 17:46 [facility] 11/24 15:50 Order name: Lipase; Complete Time: 17:46 [facility] 11/24 15:50 Order name: Urine Microscopic Only; Complete Time: 17:46 [facility] 11/24 17:02 Order name: Urine Dipstick-Ancillary; Complete Time: 17:46 [facility] 11/24 17:10 Order name: Urine Culture [facility] 11/24 15:50 Order name: CT Head Brain wo Cont; Complete Time: 17:46 [facility] 11/24 15:50 Order name: IV Saline Lock; Complete Time: 18:19 [facility] 11/24 15:50 Order name: Labs collected and sent; Complete Time: 18:19 [facility] 11/24 15:50 Order name: Urine Dipstick-Ancillary (obtain specimen); Complete Time: 16:44 [facility] Administered Medications: 17:55 Drug: NS 0.9% 1000 ml Route: IV; Rate: 1 bolus; Site: right antecubital; ph 18:50 Follow up: Response: No adverse reaction; IV Status: Completed infusion; IV Intake: ph 1000ml 17:55 Drug: Reglan (metoCLOPramide) 10 mg Route: IVP; Site: right antecubital; ph 18:30 Follow up: Response: No adverse reaction ph 17:55 Drug: Ketorolac 30 mg Route: IVP; Site: right antecubital; ph 18:30 Follow up: Response: No adverse reaction ph 17:55 Drug: Meclizine 50 mg Route: PO; ph 18:30 Follow up: Response: No adverse reaction; Marked relief of symptoms ph Disposition Summary: 11/24/21 18:50 Discharge Ordered Location: Home ma2 Condition: Stable ma2 Diagnosis - Other peripheral vertigo ma2 Followup: ma2 - With: Private Physician - When: Tomorrow - Reason: If symptoms return, Continuance of care Discharge Instructions: - Discharge Summary Sheet ma2 - Benign Positional Vertigo ma2 Forms: - Medication Reconciliation Form ma2 - Thank You Letter ma2 - Antibiotic Education ma2 - Prescription Opioid Use ma2 Prescriptions: - Meclizine 25 mg Oral Tablet - take 1 tablet by ORAL route every 8 hours As needed; 30 tablet; Refills: 0, ma2 Product Selection Permitted - Reglan 10 mg Oral Tablet - take 1 tablet by ORAL route every 6 hours . take 30 minutes before meals and at ma2 bedtime; 100 tablet; Refills: 0, Product Selection Permitted - Zofran 4 mg Oral Tablet - take 1 tablet by ORAL route every 12 hours As needed; 20 tablet; Refills: 0, ma2 Product Selection Permitted Signatures: Dispatcher [employer] Ignacia Morataya RN RN ph Alzahri, Mohammad, MD MD vt2
--- NOTE | 2021-11-24 18:50 | ER ---
Nurse's Notes [facility] Name: Maribell Krishnamurthy Age: 41 yrs Sex: Female : 1980 Arrival Date: 11/24/2021 Time: 15:28 Bed 15 Private MD: Diagnosis: Other peripheral vertigo Presentation: 11/24 15:36 Chief complaint: EMS states: Pt c/o dizziness that started today, also reports N/V, ph states, " I just feel like the room is spinning. My ear felt weird and muffled first and then I got dizzy." Also c/o pain in back of neck, VSS. Coronavirus screen: Vaccine status: Patient reports receiving the 1st dose of the Covid vaccine. Ebola Screen: No symptoms or risks identified at this time. Initial Sepsis Screen: Does the patient meet any 2 criteria? No. Patient's initial sepsis screen is negative. Does the patient have a suspected source of infection? No. Patient's initial sepsis screen is negative. Risk Assessment: Do you want to hurt yourself or someone else? Patient reports no desire to harm self or others. Onset of symptoms was November 24, 2021. 15:36 Method Of Arrival: EMS: [facility] 15:36 Acuity: NUSRAT 3 ph Triage Assessment: 15:39 General: Appears in no apparent distress. Behavior is calm, cooperative, Denies fever, ph feeling ill. Pain: Complains of pain in right posterior aspect of neck and left posterior aspect of neck. Neuro: Level of Consciousness is awake, alert, obeys commands, Oriented to person, place, time, situation, Reports dizziness. Cardiovascular: Capillary refill < 3 seconds in bilateral fingers Patient's skin is warm and dry. Respiratory: Airway is patent Respiratory effort is even, unlabored. GI: Reports nausea, vomiting, Patient currently denies abdominal pain. Derm: Skin is intact, Skin is pink, warm \\T\\ dry. Musculoskeletal: Circulation, motion, and sensation intact. Range of motion: intact in all extremities. 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 - Social history:: Smoking status: Patient denies any tobacco usage or history of. - Family history:: not pertinent. Screenin:40 Abuse screen: Denies threats or abuse. Denies injuries from another. Nutritional ph screening: No deficits noted. Tuberculosis screening: No symptoms or risk factors identified. Fall Risk None identified. Assessment: 16:15 General: SEE TRIAGE ASSESSMENT. ph 17:30 Reassessment: Patient appears in no apparent distress at this time. Patient and/or ph family updated on plan of care and expected duration. Pain level reassessed. Patient is alert, oriented x 3, equal unlabored respirations, skin warm/dry/pink. 18:36 Reassessment: Patient appears in no apparent distress at this time. Patient and/or ph family updated on plan of care and expected duration. Pain level reassessed. Patient is alert, oriented x 3, equal unlabored respirations, skin warm/dry/pink. Patient states feeling better. Patient states symptoms have improved. 18:36 Reassessment: Dr Jimenez at bedside. ph Vital Signs: 15:36 BP 124 / 101; Pulse 91; Resp 18; Temp 97.8; Pulse Ox 100% on R/A; Weight 68.49 kg; ph Height 5 ft. 2 in. (157.48 cm); 16:30 BP 120 / 76; Pulse 81; Resp 18; Pulse Ox 99% on R/A; ph 17:30 BP 118 / 86; Pulse 74; Resp 18; Pulse Ox 99% on R/A; ph 18:30 BP 123 / 76; Pulse 82; Resp 19; Temp 98.0; Pulse Ox 99% on R/A; ph 15:36 Body Mass Index 27.62 (68.49 kg, 157.48 cm) ph ED Course: 15:28 Patient arrived in ED. ph 15:32 Chauncey Jimenez MD is Attending Physician. ma2 15:38 Triage completed. ph 15:39 Arm band placed on Patient placed in an exam room, on a stretcher, on pulse oximetry. ph 15:40 Patient has correct armband on for positive identification. Bed in low position. Call ph light in reach. Side rails up X 1. Pulse ox on. NIBP on. 16:03 CT Head Brain wo Cont In Process Unspecified. EDMS 16:26 Ignacia Chu, DANETTE is Primary Nurse. ph 19:11 Primary Nurse role handed off by Ignacia Chu RN mw2 19:32 Lily Atkinson, RN is Primary Nurse. ld1 19:33 No provider procedures requiring assistance completed. Patient did not have IV access ld1 during this emergency room visit. Administered Medications: 17:55 Drug: NS 0.9% 1000 ml Route: IV; Rate: 1 bolus; Site: right antecubital; ph 18:50 Follow up: Response: No adverse reaction; IV Status: Completed infusion; IV Intake: ph 1000ml 17:55 Drug: Reglan (metoCLOPramide) 10 mg Route: IVP; Site: right antecubital; ph 18:30 Follow up: Response: No adverse reaction ph 17:55 Drug: Ketorolac 30 mg Route: IVP; Site: right antecubital; ph 18:30 Follow up: Response: No adverse reaction ph 17:55 Drug: Meclizine 50 mg Route: PO; ph 18:30 Follow up: Response: No adverse reaction; Marked relief of symptoms ph Medication: 15:40 VIS not applicable for this client. ph Intake: 18:50 IV: 1000ml; Total: 1000ml. ph Outcome: 18:50 Discharge ordered by . ma2 19:33 Discharged to home ambulatory. ld1 19:33 Condition: stable 19:33 Discharge instructions given to patient, family, Instructed on discharge instructions, follow up and referral plans. medication usage, Demonstrated understanding of instructions, follow-up care, medications, Prescriptions given X 3. 19:33 Patient left the ED. ld1 Signatures: Dispatcher [employer] EDMS Ignacia Chu RN RN Chauncey Jimenez MD MD ma2 [place], MyKena 2 Lliy Atkinson, DANETTE RN ld1
[2021-11-24 19:50] VITALS: BP 124/101; TEMP 97.8; O2SAT 100
== END 2021-11-24 19:33 | disposition home or self-care (01) ==
LOC: ER 15:24
DX: H81.399 Other peripheral vertigo, unspecified ear (principal); Z88.0 Allergy status to penicillin
CPT/HCPCS: 36415; 70450; 80053; 81003; 81015; 83690; 85025; 87086; 87088; 96361; 96374; 96375; 99284

== ENCOUNTER 2024-09-20 11:20 | Emergency (ER) | payer SELFPAY ==
--- OUTSIDE RECORDS SUMMARY | 2024-09-20 11:38 | XMS REPORT | Continuity of Care Document ---
Author Name Unknown Address [address] [facility] [address] [place] [address] [facility] [place] Address [address] [facility] [address] [place] [address] Care Team Providers Care Manager Bridge Name Role Phone JAIME OVIEDO Primary Care Physician Aleyda Macdonald MD, Reginaldo Durant Attending Clinician [phone] NILE RICHARDS Attending Clinician Unavailable Nile Richards MD Attending Clinician + [phone] YARELIS REILLY Attending Clinician Unavailable MARYURI TRAN Attending Clinician Unavailable MARYURI TRAN Attending Clinician Unavailable Maryuri Tran MD Attending Clinician [phone] BARB MARS Attending Clinician UnavailJace Douglas Attending Clinician [phone] Barb Mars MD Attending Clinician [phone] RICK FELIX Attending Clinician Unavail able Rick Felix MD Attending Clinician [phone] PRASHANTH NUR Attending Clinician Unavailable Ladan Lamar MD Attending Clinician [phone] Yarelis Feliciano Attending Clinician [phone] KRISTINE SHI Attending Clinician Unavailable Kristine Shi MD Attending Clinician [phone] Yarelis Feliciano Attending Clinician [phone] Room, Aesthetic Laser Attending Clinician Roxana harris Doctor Unassigned, [place] Attending Clinician U HI Goetz Attending Clinician Unavailable HI CRAWLEY Attending Clinician Unavailable BRITTANY KO Attending Clinician LASHAUN Mane Attending Clinician Unavaila Brittany Fiore Attending Clinician [phone] Mayo Sigala Attending Clinician + [phone] MAYO SALAZAR Attending Clinician Unavaila RIGOBERTO Valadez Attending Clinician Unavailab dalia Romo MD, Rigoberto Attending Clinician [phone] Nile Richards MD Attending Clinician [phone] Irma STAN[place]ORD, [place] Attending Clinician [phone] DANA JENNINGS Attending Clinician Unavail able SAURAV NORRIS Attending Clinician Unavailable PHILIPPE NGUYEN Attending Clinician Unavailabl Rosenda Boswell DO Attending Clinician [phone] Valentin Huff DO Attending Clinician [phone] Hui Mas MD Attending Clinician [phone] Dar Sethi RN, Jennifer Attending Clinician Unavailable Lab, Adc [facility] Pob I Attending Clinician Unavailab Connie Birmingham Attending Clinician [phone] CONNIE ALARCON Attending Clinician Unavailable DERRICK SALES Attending Clinician Unavailable JACE ARVIZU Admitting Clinician Unavaila ble Payers Payer Name Policy Type Policy Number Effective Date Expirati on Date Source Problems Condition Name Condition Details Condition Category Status Onset Date Resolution Date Last Treatment Date Treating Clinician Comments Source Bleeding internal hemorrhoid s Bleeding internal hemorrhoid s Disease Active 07-02 00:00: 00 [facility] Rectal bleeding Rectal bleeding Disease Active 07-31 00:00: 00 [facility] GI bleed GI bleed Disease Active 02-25 00:00: 00 [facility] GIB (gastroint estinal bleeding) GIB (gastroint estinal bleeding) Disease Active 9-17 00:00: 00 [facility] BV (bacterial vaginosis) BV (bacterial vaginosis) Disease Active 10-20 00:00: 00 [facility] UTI symptoms UTI symptoms Disease Active 10-20 00:00: 00 [facility] Contracept ion management Contracept ion management Disease Active 07-15 00:00: 00 [facility] Yeast infection of the vagina Yeast infection of the vagina Disease Active 07-15 00:00: 00 [facility] Dysmenorrh ea Dysmenorrh ea Disease Active 07-15 00:00: 00 [facility] History of anxiety History of anxiety Disease Active 07-15 00:00: 00 [facility] Dental cavities Dental cavities Disease Active 07-15 00:00: 00 [facility] Overweight Overweight Disease Active 07-09 00:00: 00 Overview: Formattin g of this note might be different from the original. 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 [facility] Immunizati ons up to date Immunizati ons up to date Disease Resolve d 07-09 00:00: 00 2015-07-15 00:00:00 2015-07-15 14:33:29 [facility] Allergies, Adverse Reactions, Alerts Allergy Name Allergy Type Status Severity Reaction(s) Onset Date Inactive Date Treating Clinician Comments Source Penicill ins Propensi ty to adverse reaction to drug Active 3-25 00:00: 00 Tashi Booth Bactrim Propensi ty to adverse reaction to drug Active 8-23 00:00: 00 Tashi Booth SULFA (SULFONA MIDE ANTIBIOT ICS) Drug Class Active Hives 5-18 00:00: 00 [facility] Sulfa (Sulfona mide Antibiot ics) Propensi ty to adverse reaction s Active Hives 10-25 00:00: 00 [facility] SULFAMET HOXAZOLE -TRIMETH OPRIM DRUG Active Med Rash 07-31 00:00: 00 [facility] Sulfamet hoxazole -Trimeth oprim Propensi ty to adverse reaction s Active Rash 07-31 00:00: 00 [facility] Bactrim - Oral Propensi ty to adverse reaction to drug Active 2021-06 00:00: 00 Tashi Jerald Booth Penicill in Propensi ty to adverse reaction s Active Shortness of Breath 2018-06 00:00: 00 [facility] PENICILL IN DRUG INGREDI Active SOB 2018-06 00:00: 00 [facility] Social History Social Habit Start Date Stop Date Quantity Comments Source Gender [facility] History of Social function 2024-08-31 00:00:00 2024-08-31 00:00:00 [facility] Alcoholic beverage intake 2024-08-31 00:00:00 2024-08-31 00:00:00 Current non-drinker of alcohol (finding) [facility] Alcohol intake 2023-08-20 00:00:00 2023-08-20 00:00:00 Current non-drinker of alcohol (finding) [facility] Exposure to SARS-CoV-2 (event) 2022-10-15 00:00:00 2022-10-25 11:11:00 Not sure [facility] Tobacco use and exposure 2022-07-12 00:00:00 2022-07-12 00:00:00 Smokeless tobacco non-user [facility] Sex assigned at 1980 00:00:00 1980 00:00:00 [facility] Smoking Status Start Date Stop Date Source Never smoked tobacco [facility] Medications Ordered Medication Name Filled Medication Name Start Date Stop Date Current Medication? Ordering Clinician Indication Dosage Frequency Signature (SIG) Comments Components Source ciprofloxac in 500 mg tablet 4- 00:00: 00 Yes 1mg Tsahi Jerald Booth hydroxyzine HCl 25 mg tablet 3- 00:00: 00 Yes 1mg Tashi Jerald Booth Macrobid 100 mg capsule 09-01 00:00: 00 Yes 1mg Tashi Booth HYDROCORTIS ONE-HYDROQU INONE-TRETI NOIN 1-6-0.025 % TOPICAL CREAM 09-01 00:00: 00 Yes [id number] Apply to area(s) at bedtime. [facility] spironolact one 50 mg tablet 08-31 00:00: 00 Yes [id number] 150mg Take 3 tablets by mouth at bedtime. Take 3 tablets daily [facility] tranexamic acid 650 mg tablet 08-31 00:00: 00 Yes [id number] 325mg Take 0.5 tablets by mouth in the morning and 0.5 tablets in the evening. [facility] HYDROCORTIS ONE-HYDROQU INONE-TRETI NOIN 1-6-0.025 % TOPICAL CREAM 08-31 00:00: 00 09-01 00:00 :00 No [id number] Apply to area(s) at bedtime. [facility] tranexamic acid 650 mg tablet 2-13 00:00: 00 08-31 00:00 :00 No [id number] 325mg Take 0.5 tablets by mouth in the morning and 0.5 tablets in the evening. [facility] hydrocortis one 25 mg suppository 07-02 00:00: 00 Yes [id number] 25mg Insert 1 Suppositor y into rectum in the morning and 1 Suppositor y in the evening. [facility] iopamidol (ISOVUE 370-500 mL) injection 80 mL -04 23:10: 00 06-13 23:10 :00 No [id number] 80mL 80 mL, Intravenou s, ONCE, 1 dose, On 06/13/24 at 1730, Routine [facility] hydrocortis one 2.5 % rectal cream 1-04 00:00: 00 07-02 00:00 :00 No [id number] Insert into rectum 2 (two) times daily. [facility] hydrocortis one 25 mg suppository 1-04 00:00: 00 06-24 05:59 :00 No [id number] 25mg Insert 1 Suppositor y into rectum in the morning and 1 Suppositor y in the evening. Do all this for 10 days. [facility] spironolact one 50 mg tablet 2023-06 00:00: 00 08-31 00:00 :00 No [id number] 150mg Take 3 tablets by mouth at bedtime. Take 3 tablets daily [facility] minoxidiL-f inasteride 7-0.1 % Soln 2023-06 00:00: 00 07-02 00:00 :00 No [id number] 1{appli cation} Apply 1 Applicatio n to area(s) in the morning. [facility] spironolact one 25 mg tablet 2023-06 00:00: 00 Yes 1mg Tashi Booth buspirone 7.5 mg tablet 2023-06 00:00: 00 Yes 1mg Tashi Booth hydroxyzine HCl 25 mg tablet 2023-06 00:00: 00 Yes 1mg Tashi Booth metronidazo le 500 mg tablet 2023-06 00:00: 00 Yes 1mg Tashi Booth cephalexin 500 mg capsule 2023-06 00:00: 00 Yes 1mg Tashi Booth ibuprofen 600 mg tablet 01-30 00:00: 00 Yes 1mg Tashi Booth nitrofurant oin macrocrysta l 100 mg capsule 01-30 00:00: 00 Yes 1mg Tashi Booth HYDROCORTIS ONE-HYDROQU INONE-TRETI NOIN 1-6-0.025 % TOPICAL CREAM 01-08 00:00: 00 08-31 00:00 :00 No [id number] Apply to area(s) at bedtime. [facility] spironolact one 50 mg tablet 01-08 00:00: 00 06-01 00:00 :00 No [id number] 100mg Take 2 tablets by mouth at bedtime. [facility] hydroxyzine HCl 25 mg tablet 12-18 00:00: 00 Yes 1mg Tashi Booth Macrobid 100 mg capsule 12-18 00:00: 00 Yes 1mg Tashi Booth sumatriptan 100 mg tablet 08 00:00: 00 Yes 1mg Tashi Booth amitriptyli ne 10 mg tablet 24 00:00: 00 Yes 1mg Tashi Booth Ubrelvy 100 mg tablet 24 00:00: 00 Yes mg Tashi Booth TAKE 1 TABLET DAILY. 08-26 00:00: 00 Yes [id number] Tashi Booth TAKE 5 ML EVERY 4 TO 6 HOURS NEEDED. 08-26 00:00: 00 10-15 00:00 :00 No [id number] Tashi Booth TAKE 2 TABLETS ON DAY 1 THEN TAKE 1 TABLET A DAY FOR 4 DAYS. 08-26 00:00: 00 10-15 00:00 :00 No 250 Tashi Booth TAKE 1 TABLET DAILY. 08-26 00:00: 00 10-15 00:00 :00 No 20 Tashi Booth TAKE 1 CAPSULE EVERY 12 HOURS UNTIL GONE. 2-15 00:00: 00 10-15 00:00 :00 No 500 Tashi Booth Fluocinolon e-Hydroq.-T retinoin (TRI-ROSELYN) 0.01-4-0.05 % cream - 00:00: 00 09-29 04:59 :00 No [id number] Apply to area(s) at bedtime for 90 days. [facility] TWICE DAILY BY MOUTH 1-15 00:00: 00 10-15 00:00 :00 No 100 Tashi Booth TAKE 1 CAPSULE TWICE DAILY. 2022-06 2-04 00:00: 00 10-15 00:00 :00 No 100 Tashi Booth TAKE 1 TABLET TWICE DAILY. 8-18 00:00: 00 10-15 00:00 :00 No 500 Tashi Booth TAKE 1 TABLET EVERY 12 HOURS DAILY. 0 8-11 00:00: 00 10-15 00:00 :00 No 250 Tashi Booth TWICE DAILY BY MOUTH 8-04 00:00: 00 10-15 00:00 :00 No 100 Tashi Booth hydroquin-t retinoin-hy drocort 4-0.025-0.5 % Emul 5-18 00:00: 00 Yes [id number] 1{appli cator} Apply 1 Applicator to area(s) in the morning. [facility] tretinoin 0.025 % cream 5-18 00:00: 00 Yes Apply to affected area(s) at bedtime. [facility] hydroquin-t retinoin-hy drocort 4-0.025-0.5 % Emul 5-18 00:00: 00 07-01 00:00 :00 No [id number] 1{appli cator} Apply 1 Applicator to area(s) in the morning. [facility] TAKE 1/2 TABLET BY MOUTH IN THE MORNING AND 1/2 TABLET IN THE EVENING 0 4-20 00:00: 00 Yes Tashi Booth tranexamic acid 650 mg tablet 4-20 00:00: 00 07-23 00:00 :00 No [id number] 325mg Take 0.5 tablets by mouth in the morning and 0.5 tablets in the evening. [facility] TAKE 1 TABLET TWICE DAILY WITH FOOD FOR 5 DAYS NEEDED FOR FLARE-UPS. 4-08 00:00: 00 10-15 00:00 :00 No 20 Tashi Booth TAKE 1 TABLET 3 TIMES DAILY AFTER MEALS NEEDED 0 2-24 00:00: 00 10-15 00:00 :00 No 100 Tashi Booth tranexamic acid 650 mg tablet 0 2-02 00:00: 00 Yes [id number] Take 1/2 tablet BID [facility] TRIAMCINOLO NE ACETONIDE-H YDROQUINONE -TRETINOIN 0.025-4-0.0 25 % TOPICAL CREAM 2-02 00:00: 00 07-01 00:00 :00 No [id number] Apply to area(s) at bedtime. [facility] TAKE 1 TABLET DAILY. 07-07 00:00: 00 10-15 00:00 :00 No 750 Tashi Booth TWICE DAILY BY MOUTH 06-19 00:00: 00 10-15 00:00 :00 No 100 Tashi Booth TAKE DIRECTED. 2021-06 00:00: 00 10-15 00:00 :00 No [id number] Tashi Booth Dose Unknown 2021-0 9 00:00: 00 No Dose Unknown 2021-0 9 00:00: 00 No Dose Unknown 2-0 03-01 00:00: 00 No Dose Unknown 2022-0 03-01 00:00: 00 No Dose Unknown 2-0 9 00:00: 00 Yes Tashi Booth Dose Unknown 2-0 9- 00:00: 00 No Dose Unknown 2-0 9- 00:00: 00 No Dose Unknown 2022-0 9 00:00: 00 No Dose Unknown 2022-0 9- 00:00: 00 No Dose Unknown 2022-0 9- 00:00: 00 No Dose Unknown 2-0 9- 00:00: 00 Yes Tashi Booth Dose Unknown 2-0 7 00:00: 00 No Dose Unknown 2022-0 7 00:00: 00 No Dose Unknown 2022-0 7 00:00: 00 No Dose Unknown 2022-0 730 00:00: 00 No Dose Unknown 2022-0 7 00:00: 00 No Dose Unknown 2022-0 7 00:00: 00 No Dose Unknown 2022-0 7 00:00: 00 No Dose Unknown 2022-0 7 00:00: 00 No Dose Unknown 2022-0 7 00:00: 00 No Dose Unknown 2022-0 7 00:00: 00 No Dose Unknown 2022-0 7 00:00: 00 No Dose Unknown 2022-0 7 00:00: 00 No Dose Unknown 2022-0 7 00:00: 00 No Dose Unknown 2022-0 7 00:00: 00 No Dose Unknown 2022-0 01-06 00:00: 00 No Dose Unknown 2022-0 01-06 00:00: 00 No Dose Unknown 2022-0 01-06 00:00: 00 No Dose Unknown 2022-0 01-06 00:00: 00 No Dose Unknown 2022-0 01-06 00:00: 00 No Dose Unknown 2022-0 01-06 00:00: 00 No Dose Unknown 2022-0 01-06 00:00: 00 Yes Tashi Botoh Dose Unknown 2-0 01-06 00:00: 00 Yes Tashi Booth Dose Unknown 2022-0 01-06 00:00: 00 Yes Tashi Booth Dose Unknown 2-0 01-06 00:00: 00 Yes Tashi Booth Bactrim DS 800 mg-160 mg tablet 2-0 01-05 00:00: 00 No 1mg Dose Unknown 2-0 01-05 00:00: 00 No Dose Unknown 2022-0 01-05 00:00: 00 No Bactrim DS 800 mg-160 mg tablet 2-0 01-05 00:00: 00 No 1mg Dose Unknown 2022-0 01-05 00:00: 00 No Dose Unknown 2022-0 01-05 00:00: 00 No Bactrim DS 800 mg-160 mg tablet 2-0 01-05 00:00: 00 No 1mg Dose Unknown 2022-0 01-05 00:00: 00 No Dose Unknown 2022-0 01-05 00:00: 00 No Bactrim DS 800 mg-160 mg tablet 2-0 01-05 00:00: 00 No 1mg Dose Unknown 2022-0 01-05 00:00: 00 No Dose Unknown 2022-0 01-05 00:00: 00 No Bactrim DS 800 mg-160 mg tablet 2022-0 01-05 00:00: 00 No 1mg Dose Unknown 2022-0 01-05 00:00: 00 No Dose Unknown 2022-0 01-05 00:00: 00 No Bactrim DS 800 mg-160 mg tablet 2-0 01-05 00:00: 00 Yes 1mg Tashi Booth Dose Unknown 2022-0 7-29 00:00: 00 Yes Tashi Booth Dose Unknown 2022-0 7-29 00:00: 00 Yes Tashi Booth Bactrim DS 800 mg-160 mg tablet 2022-0 4-15 00:00: 00 No 1mg Bactrim DS 800 mg-160 mg tablet 2022-0 4-15 00:00: 00 No 1mg Bactrim DS 800 mg-160 mg tablet 2022-0 4-15 00:00: 00 No 1mg Bactrim DS 800 mg-160 mg tablet 2022-0 4-15 00:00: 00 No 1mg Bactrim DS 800 mg-160 mg tablet 2022-0 4-15 00:00: 00 No 1mg Bactrim DS 800 mg-160 mg tablet 2022-0 4-15 00:00: 00 Yes 1mg Tashi Booth Macrobid 100 mg capsule 2022-0 3-09 00:00: 00 No 1mg Dose Unknown 2022-0 3-09 00:00: 00 No Dose Unknown 2022-0 3-09 00:00: 00 No Dose Unknown 2022-0 3-09 00:00: 00 No Macrobid 100 mg capsule 2022-0 3-09 00:00: 00 No 1mg Dose Unknown 2022-0 3-09 00:00: 00 No Dose Unknown 2022-0 3-09 00:00: 00 No Dose Unknown 2022-0 3-09 00:00: 00 No Macrobid 100 mg capsule 2022-0 3-09 00:00: 00 No 1mg Dose Unknown 2022-0 3-09 00:00: 00 No Dose Unknown 2022-0 3-09 00:00: 00 No Dose Unknown 2022-0 3-09 00:00: 00 No Macrobid 100 mg capsule 2022-0 3-09 00:00: 00 No 1mg Dose Unknown 2022-0 3-09 00:00: 00 No Dose Unknown 2022-0 3-09 00:00: 00 No Dose Unknown 2022-0 3-09 00:00: 00 No Macrobid 100 mg capsule 2022-0 3-09 00:00: 00 No 1mg Dose Unknown 2022-0 3-09 00:00: 00 No Dose Unknown 2022-0 3-09 00:00: 00 No Dose Unknown 08-16 00:00: 00 No Macrobid 100 mg capsule 08-16 00:00: 00 Yes 1mg Tashi Booth Dose Unknown 08-16 00:00: 00 Yes Tashi Booth Dose Unknown 08-16 00:00: 00 Yes Tashi Booth Dose Unknown 08-16 00:00: 00 Yes Tashi Booth hydrocortis one 2.5 % rectal cream 06-15 00:00: 00 Yes [id number] Insert into rectum 2 (two) times daily. [facility] TRIAMCINOLO NE ACETONIDE-H YDROQUINONE -TRETINOIN 0.025-4-0.0 25 % TOPICAL CREAM 2020-06 2 00:00: 00 07-12 00:00 :00 No [id number] Apply to area(s) at bedtime. [facility] tranexamic acid 650 mg tablet 2020-06 00:00: 00 Yes [id number] 325mg Take 0.5 tablets by mouth 2 (two) times daily. [facility] Dose Unknown 02-07 00:00: 00 No Augmentin 875 mg-125 mg tablet 02-07 00:00: 00 No 1mg Dose Unknown 02-07 00:00: 00 No Dose Unknown 02-07 00:00: 00 No Augmentin 875 mg-125 mg tablet 02-07 00:00: 00 No 1mg Dose Unknown 02-07 00:00: 00 No Dose Unknown 02-07 00:00: 00 No Augmentin 875 mg-125 mg tablet 02-07 00:00: 00 No 1mg Dose Unknown 02-07 00:00: 00 No Dose Unknown 02-07 00:00: 00 No Augmentin 875 mg-125 mg tablet 02-07 00:00: 00 No 1mg Dose Unknown 8 00:00: 00 No Dose Unknown 02-07 00:00: 00 No Augmentin 875 mg-125 mg tablet 02-07 00:00: 00 No 1mg Dose Unknown 02-07 00:00: 00 No Dose Unknown 02-07 00:00: 00 Yes Tashi Booth Augmentin 875 mg-125 mg tablet 02-07 00:00: 00 Yes 1mg Tashi Booth Dose Unknown 02-07 00:00: 00 Yes Tashi Booth doxycycline monohydrate 100 mg capsule 11-23 00:00: 00 07-02 00:00 :00 No [id number] 100mg Take 1 capsule by mouth daily. Take capsule by mouth once daily with a meal for 7 days when acne flares. [facility] tretinoin 0.025 % cream 11-23 00:00: 00 10-25 00:00 :00 No [id number] Apply to affected area(s) at bedtime. [facility] lidocaine 4 % topical patch 10-14 00:00: 00 No 1% cyclobenzap rine 5 mg tablet 10-14 00:00: 00 No 1mg Dose Unknown 10-14 00:00: 00 No lidocaine 4 % topical patch 10-14 00:00: 00 No 1% cyclobenzap rine 5 mg tablet 10-14 00:00: 00 No 1mg Dose Unknown 10-14 00:00: 00 No lidocaine 4 % topical patch 10-14 00:00: 00 No 1% cyclobenzap rine 5 mg tablet 10-14 00:00: 00 No 1mg Dose Unknown 10-14 00:00: 00 No lidocaine 4 % topical patch 10-14 00:00: 00 No 1% cyclobenzap rine 5 mg tablet 10-14 00:00: 00 No 1mg Dose Unknown 10-14 00:00: 00 No lidocaine 4 % topical patch 10-14 00:00: 00 No 1% cyclobenzap rine 5 mg tablet 10-14 00:00: 00 No 1mg Dose Unknown 10-14 00:00: 00 No lidocaine 4 % topical patch 10-14 00:00: 00 Yes 1% Tashi Booth cyclobenzap rine 5 mg tablet 10-14 00:00: 00 Yes 1mg Tashi Booth Dose Unknown 10-14 00:00: 00 Yes Tashi Booth Dose Unknown 10-05 00:00: 00 No Dose Unknown 10-05 00:00: 00 No Macrobid 100 mg capsule 10-05 00:00: 00 No 1mg Macrobid 100 mg capsule 10-05 00:00: 00 No 1mg Dose Unknown 10-05 00:00: 00 No Macrobid 100 mg capsule 10-05 00:00: 00 No 1mg Dose Unknown 10-05 00:00: 00 No Macrobid 100 mg capsule 10-05 00:00: 00 No 1mg Dose Unknown 10-05 00:00: 00 No Macrobid 100 mg capsule 10-05 00:00: 00 No 1mg Dose Unknown 10-05 00:00: 00 Yes Tashi Booth Macrobid 100 mg capsule 10-05 00:00: 00 Yes 1mg Tashi Botoh propranoloL 20 mg tablet 02-24 00:00: 00 Yes [id number] 20mg Take 1 tablet by mouth 2 (two) times daily. [facility] Macrobid 100 mg capsule - 00:00: 00 No 1mg Macrobid 100 mg capsule 01-29 00:00: 00 No 1mg Macrobid 100 mg capsule 01-29 00:00: 00 No 1mg Macrobid 100 mg capsule - 00:00: 00 No 1mg Macrobid 100 mg capsule 01-29 00:00: 00 No 1mg Macrobid 100 mg capsule 01-29 00:00: 00 Yes 1mg Tashi Booth Bactrim DS 800 mg-160 mg tablet 7- 00:00: 00 No 1mg Bactrim DS 800 mg-160 mg tablet 2019-0 7-19 00:00: 00 No 1mg Bactrim DS 800 mg-160 mg tablet 2019-0 7-19 00:00: 00 No 1mg Bactrim DS 800 mg-160 mg tablet 2019-0 7-19 00:00: 00 No 1mg Bactrim DS 800 mg-160 mg tablet 2019-0 -19 00:00: 00 No 1mg Bactrim DS 800 mg-160 mg tablet 2019-0 -19 00:00: 00 Yes 1mg Tashi Booth amoxicillin 500 mg tablet 2019-0 2-19 00:00: 00 No 1mg amoxicillin 500 mg tablet 0 2-19 00:00: 00 No 1mg amoxicillin 500 mg tablet 2019-0 2-19 00:00: 00 No 1mg amoxicillin 500 mg tablet 0 2-19 00:00: 00 No 1mg amoxicillin 500 mg tablet 0 219 00:00: 00 No 1mg amoxicillin 500 mg tablet 0 2-19 00:00: 00 Yes 1mg Tashi Booth penicillin V potassium 500 mg tablet 2019-0 2-18 00:00: 00 No 1mg penicillin V potassium 500 mg tablet 2019-0 2-18 00:00: 00 No 1mg penicillin V potassium 500 mg tablet 2019-0 2-18 00:00: 00 Yes 1mg Tashi Booth penicillin V potassium 500 mg tablet 2019-0 2-18 00:00: 00 No 1mg penicillin V potassium 500 mg tablet 2019-0 2-18 00:00: 00 No 1mg penicillin V potassium 500 mg tablet 2019-0 2-18 00:00: 00 No 1mg oxybutynin chloride 5 mg tablet 2019-0 2-13 00:00: 00 Yes 1mg Tashi Booth oxybutynin chloride 5 mg tablet 2019-0 2-13 00:00: 00 No 1mg oxybutynin chloride 5 mg tablet 2019-0 2-13 00:00: 00 No 1mg oxybutynin chloride 5 mg tablet 2019-0 2-13 00:00: 00 No 1mg oxybutynin chloride 5 mg tablet 2019-0 2-13 00:00: 00 No 1mg oxybutynin chloride 5 mg tablet 2019-0 2-13 00:00: 00 No 1mg clindamycin 1 % solution 2019-1 1-06 00:00: 00 07-02 00:00 :00 No [id number] Apply to affected area(s) 2 (two) times daily. [facility] doxycycline 100 mg tablet 2018-06 00:00: 00 07-02 00:00 :00 No [id number] 100mg Take 1 tablet by mouth 2 (two) times daily. [facility] SUMAtriptan 50 mg tablet 2018-06 00:00: 00 Yes [id number] Take 25mg (half tablet) at onset of migraine, if not relieved in 2 hours you can take an additional 25mg [facility] Macrobid 100 mg capsule 12-05 00:00: 00 Yes 1mg Tashi Booth Macrobid 100 mg capsule 12-05 00:00: 00 No 1mg Macrobid 100 mg capsule 12-05 00:00: 00 No 1mg Macrobid 100 mg capsule 12-05 00:00: 00 No 1mg Macrobid 100 mg capsule 12-05 00:00: 00 No 1mg Macrobid 100 mg capsule 12-05 00:00: 00 No 1mg ferrous sulfate (IRON) 325 mg (65 mg iron) tablet 08-13 00:00: 00 Yes [id number] 325mg Take 1 tablet by mouth daily. [facility] Methylcellu lose, Laxative, (FIBER LAXATIVE, METHYLCELLU LO,) 500 mg tablet 08-01 00:00: 00 Yes [id number] 500mg Take 1 tablet by mouth 2 (two) times daily. [facility] hydrocortis one 2.5 % rectal cream 08-01 00:00: 00 Yes [id number] Insert into rectum 2 (two) times daily. Apply twice daily for one week [facility] citalopram 20 mg tablet 2017-06 00:00: 00 Yes 1mg Tashi Booth ciprofloxac in 500 mg tablet 2017-06 00:00: 00 Yes 1mg Tashi Booth citalopram 20 mg tablet 2017-06 00:00: 00 No 1mg ciprofloxac in 500 mg tablet 2017-06 00:00: 00 No 1mg citalopram 20 mg tablet 2017-06 00:00: 00 No 1mg ciprofloxac in 500 mg tablet 2017-06 00:00: 00 No 1mg citalopram 20 mg tablet 2017-06 00:00: 00 No 1mg ciprofloxac in 500 mg tablet 2017-06 00:00: 00 No 1mg citalopram 20 mg tablet 2017-06 00:00: 00 No 1mg ciprofloxac in 500 mg tablet 2017-06 00:00: 00 No 1mg citalopram 20 mg tablet 2017-06 00:00: 00 No 1mg ciprofloxac in 500 mg tablet 2017-06 00:00: 00 No 1mg Vitamin D2 50,000 unit capsule 12-24 00:00: 00 Yes 1unit Tashi Booth Vitamin D2 50,000 unit capsule 12-24 00:00: 00 No 1unit Vitamin D2 50,000 unit capsule 12-24 00:00: 00 No 1unit Vitamin D2 50,000 unit capsule 12-24 00:00: 00 No 1unit Vitamin D2 50,000 unit capsule 12-24 00:00: 00 No 1unit Vitamin D2 50,000 unit capsule 12-24 00:00: 00 No 1unit propranolol 10 mg tablet 11-14 00:00: 00 Yes 1mg Tashi Marques Leobardo amitriptyli ne 10 mg tablet 11-14 00:00: 00 Yes 1mg Tashi Marques Leobardo propranolol 10 mg tablet 11-14 00:00: 00 No 1mg amitriptyli ne 10 mg tablet 11-14 00:00: 00 No 1mg propranolol 10 mg tablet 11-14 00:00: 00 No 1mg amitriptyli ne 10 mg tablet 11-14 00:00: 00 No 1mg propranolol 10 mg tablet 11-14 00:00: 00 No 1mg amitriptyli ne 10 mg tablet 11-14 00:00: 00 No 1mg propranolol 10 mg tablet 11-14 00:00: 00 No 1mg amitriptyli ne 10 mg tablet 11-14 00:00: 00 No 1mg propranolol 10 mg tablet 11-14 00:00: 00 No 1mg amitriptyli ne 10 mg tablet 11-14 00:00: 00 No 1mg tamsulosin 0.4 mg 24 hr capsule 2016-06 00:00: 00 Yes .4mg Take 1 capsule by mouth at bedtime. [facility] ciprofloxac in 250 mg tablet 01-29 00:00: 00 Yes 1mg Tashi F Leobardo ciprofloxac in 250 mg tablet 01-29 00:00: 00 No 1mg ciprofloxac in 250 mg tablet 01-29 00:00: 00 No 1mg ciprofloxac in 250 mg tablet 01-29 00:00: 00 No 1mg ciprofloxac in 250 mg tablet 01-29 00:00: 00 No 1mg ciprofloxac in 250 mg tablet 01-29 00:00: 00 No 1mg Flagyl 500 mg tablet 01-26 00:00: 00 Yes 1mg Tashi Jerald Leobardo Flagyl 500 mg tablet 01-26 00:00: 00 No 1mg Flagyl 500 mg tablet 01-26 00:00: 00 No 1mg Flagyl 500 mg tablet 01-26 00:00: 00 No 1mg Flagyl 500 mg tablet 01-26 00:00: 00 No 1mg Flagyl 500 mg tablet 01-26 00:00: 00 No 1mg clotrimazol e 1 % vaginal cream 10-05 00:00: 00 Yes 1% Tashi Booth clotrimazol e 1 % vaginal cream 10-05 00:00: 00 No 1% clotrimazol e 1 % vaginal cream 10-05 00:00: 00 No 1% clotrimazol e 1 % vaginal cream 10-05 00:00: 00 No 1% clotrimazol e 1 % vaginal cream 10-05 00:00: 00 No 1% clotrimazol e 1 % vaginal cream 10-05 00:00: 00 No 1% ibuprofen 800 mg tablet 09-27 00:00: 00 Yes 1mg Tashi Booth Macrobid 100 mg capsule 09-27 00:00: 00 Yes 1mg Tashi Booth ibuprofen 800 mg tablet 09-27 00:00: 00 No 1mg Macrobid 100 mg capsule 09-27 00:00: 00 No 1mg ibuprofen 800 mg tablet 09-27 00:00: 00 No 1mg Macrobid 100 mg capsule 09-27 00:00: 00 No 1mg ibuprofen 800 mg tablet 09-27 00:00: 00 No 1mg Macrobid 100 mg capsule 09-27 00:00: 00 No 1mg ibuprofen 800 mg tablet 09-27 00:00: 00 No 1mg Macrobid 100 mg capsule 09-27 00:00: 00 No 1mg ibuprofen 800 mg tablet 09-27 00:00: 00 No 1mg Macrobid 100 mg capsule 09-27 00:00: 00 No 1mg Anusol-HC 25 mg suppository 2014-06 00:00: 00 Yes 1mg Tashi Booth Anusol-HC 25 mg suppository 2014-06 00:00: 00 No 1mg Anusol-HC 25 mg suppository 2014-06 00:00: 00 No 1mg Anusol-HC 25 mg suppository 2014-06 00:00: 00 No 1mg Anusol-HC 25 mg suppository 2014-06 00:00: 00 No 1mg Anusol-HC 25 mg suppository 2014-06 00:00: 00 No 1mg Bactrim DS 800 mg-160 mg tablet 2014-06 00:00: 00 Yes 1mg Tashi Booth ibuprofen 800 mg tablet 2014-06 00:00: 00 Yes 1mg Tashi Booth phenazopyri dine 100 mg tablet 2014-06 00:00: 00 Yes 1mg Tashi F Leobardo Bactrim DS 800 mg-160 mg tablet 2014-06 00:00: 00 No 1mg ibuprofen 800 mg tablet 2014-06 0 00:00: 00 No 1mg phenazopyri dine 100 mg tablet 2014-06 0 00:00: 00 No 1mg Bactrim DS 800 mg-160 mg tablet 2014-06 0 00:00: 00 No 1mg Bactrim DS 800 mg-160 mg tablet 2014-06 0 00:00: 00 No 1mg ibuprofen 800 mg tablet 2014-06 0 00:00: 00 No 1mg phenazopyri dine 100 mg tablet 2014-06 0 00:00: 00 No 1mg ibuprofen 800 mg tablet 2014-06 0 00:00: 00 No 1mg phenazopyri dine 100 mg tablet 2014-06 0 00:00: 00 No 1mg Bactrim DS 800 mg-160 mg tablet 2014-06 0 00:00: 00 No 1mg ibuprofen 800 mg tablet 2014-06 00:00: 00 No 1mg phenazopyri dine 100 mg tablet 2014-06 0 00:00: 00 No 1mg Bactrim DS 800 mg-160 mg tablet 2014-06 0 00:00: 00 No 1mg ibuprofen 800 mg tablet 2014-06 00:00: 00 No 1mg phenazopyri dine 100 mg tablet 2014-06 0 00:00: 00 No 1mg Immunizations Ordered Immunization Name Filled Immunization Name Date Status Comments Source [facility] 2024-02-03 13:00:00 Completed [facility] TDAP 2024-02-03 13:00:00 Completed [facility] Influenza Virus Vaccine Quad .5 mL IM 6+ MO (FLUZONE/FLULAVAL/F LUARIX) 2024-02-03 13:00:00 Completed [facility] SARS-COV-2 COVID-19 MODERNA 12+ YRS VACCINE 2024-02-03 13:00:00 Completed [facility] Rubella 2023-10-28 14:30:00 Completed [facility] TDAP 2023-10-28 14:30:00 Completed [facility] Influenza Virus Vaccine Quad .5 mL IM 6+ MO (FLUZONE/FLULAVAL/F LUARIX) 2023-10-28 14:30:00 Completed [facility] SARS-COV-2 COVID-19 MODERNA 12+ YRS VACCINE 2023-10-28 14:30:00 Completed [facility] Rubella 2023-08-19 11:15:00 Completed [facility] TDAP 2023-08-19 11:15:00 Completed [facility] Influenza Virus Vaccine Quad .5 mL IM 6+ MO (FLUZONE/FLULAVAL/F LUARIX) 2023-08-19 11:15:00 Completed [facility] SARS-COV-2 COVID-19 MODERNA 12+ YRS VACCINE 2023-08-19 11:15:00 Completed [facility] Rubella 2023-08-19 00:00:00 Completed [facility] TDAP 2023-08-19 00:00:00 Completed [facility] Influenza Virus Vaccine Quad .5 mL IM 6+ MO (FLUZONE/FLULAVAL/F LUARIX) 2023-08-19 00:00:00 Completed [facility] SARS-COV-2 COVID-19 MODERNA 12+ YRS VACCINE 2023-08-19 00:00:00 Completed [facility] Rubella 2023-07-01 09:30:00 Completed [facility] TDAP 2023-07-01 09:30:00 Completed [facility] Influenza Virus Vaccine Quad .5 mL IM 6+ MO (FLUZONE/FLULAVAL/F LUARIX) 2023-07-01 09:30:00 Completed [facility] SARS-COV-2 COVID-19 MODERNA 12+ YRS VACCINE 2023-07-01 09:30:00 Completed [facility] Rubella 2023-07-01 00:00:00 Completed [facility] TDAP 2023-07-01 00:00:00 Completed [facility] Influenza Virus Vaccine Quad .5 mL IM 6+ MO (FLUZONE/FLULAVAL/F LUARIX) 2023-07-01 00:00:00 Completed [facility] SARS-COV-2 COVID-19 MODERNA 12+ YRS VACCINE 2023-07-01 00:00:00 Completed [facility] Rubella 2023-05-20 10:00:00 Completed [facility] TDAP 2023-05-20 10:00:00 Completed [facility] Influenza Virus Vaccine Quad .5 mL IM 6+ MO (FLUZONE/FLULAVAL/F LUARIX) 2023-05-20 10:00:00 Completed [facility] SARS-COV-2 COVID-19 MODERNA 12+ YRS VACCINE 2023-05-20 10:00:00 Completed [facility] Rubella 2023-05-20 00:00:00 Completed [facility] TDAP 2023-05-20 00:00:00 Completed [facility] Influenza Virus Vaccine Quad .5 mL IM 6+ MO (FLUZONE/FLULAVAL/F LUARIX) 2023-05-20 00:00:00 Completed [facility] SARS-COV-2 COVID-19 MODERNA 12+ YRS VACCINE 2023-05-20 00:00:00 Completed [facility] Rubella 2023-03-29 09:30:00 Completed [facility] TDAP 2023-03-29 09:30:00 Completed [facility] Influenza Virus Vaccine Quad .5 mL IM 6+ MO (FLUZONE/FLULAVAL/F LUARIX) 2023-03-29 09:30:00 Completed [facility] SARS-COV-2 COVID-19 MODERNA 12+ YRS VACCINE 2023-03-29 09:30:00 Completed [facility] Rubella 2023-03-29 00:00:00 Completed [facility] TDAP 2023-03-29 00:00:00 Completed [facility] Influenza Virus Vaccine Quad .5 mL IM 6+ MO (FLUZONE/FLULAVAL/F LUARIX) 2023-03-29 00:00:00 Completed [facility] SARS-COV-2 COVID-19 MODERNA 12+ YRS VACCINE 2023-03-29 00:00:00 Completed [facility] Rubella 2023-03-27 00:00:00 Completed [facility] TDAP 2023-03-27 00:00:00 Completed [facility] Influenza Virus Vaccine Quad .5 mL IM 6+ MO (FLUZONE/FLULAVAL/F LUARIX) 2023-03-27 00:00:00 Completed [facility] SARS-COV-2 COVID-19 MODERNA 12+ YRS VACCINE 2023-03-27 00:00:00 Completed [facility] HPV9 HPV9 2023-03-07 00:00:00 Completed Tashi Booth SARS-COV-2 COVID-19 MODERNA 12+ YRS VACCINE 2020-09-26 00:00:00 Completed [facility] SARS-COV-2 COVID-19 MODERNA 12+ YRS VACCINE 2020-09-26 00:00:00 Completed [facility] SARS-COV-2 COVID-19 MODERNA 12+ YRS VACCINE 2020-09-26 00:00:00 Completed [facility] SARS-COV-2 COVID-19 MODERNA 12+ YRS VACCINE 2020-09-26 00:00:00 Completed [facility] SARS-COV-2 COVID-19 MODERNA 12+ YRS VACCINE 2020-09-26 00:00:00 Completed [facility] SARS-COV-2 COVID-19 MODERNA VACCINE 2020-09-26 00:00:00 Completed [facility] SARS-COV-2 COVID-19 MODERNA VACCINE 2020-09-26 00:00:00 Completed [facility] SARS-COV-2 COVID-19 MODERNA 12+ YRS VACCINE 2020-09-26 00:00:00 Completed [facility] SARS-COV-2 COVID-19 MODERNA 12+ YRS VACCINE 2020-09-26 00:00:00 Completed [facility] SARS-COV-2 COVID-19 MODERNA 12+ YRS VACCINE 2020-09-26 00:00:00 Completed [facility] SARS-COV-2 COVID-19 MODERNA 12+ YRS VACCINE 2020-09-26 00:00:00 Completed [facility] SARS-COV-2 COVID-19 MODERNA 12+ YRS VACCINE 2020-09-26 00:00:00 Completed [facility] Influenza Virus Vaccine Quad .5 mL IM 6+ MO 2018-08-01 00:00:00 Completed [facility] Influenza Virus Vaccine Quad .5 mL IM 6+ MO 2018-08-01 00:00:00 Completed [facility] Influenza Virus Vaccine Quad .5 mL IM 6+ MO 2018-08-01 00:00:00 Completed [facility] Influenza Virus Vaccine Quad .5 mL IM 6+ MO 2018-08-01 00:00:00 Completed [facility] Influenza Virus Vaccine Quad .5 mL IM 6+ MO 2018-08-01 00:00:00 Completed [facility] Influenza Virus Vaccine Quad .5 mL IM 6+ MO 2018-08-01 00:00:00 Completed [facility] Influenza Virus Vaccine Quad .5 mL IM 6+ MO 2018-08-01 00:00:00 Completed [facility] Influenza Virus Vaccine Quad .5 mL IM 6+ MO 2018-08-01 00:00:00 Completed [facility] Influenza Virus Vaccine Quad .5 mL IM 6+ MO 2018-08-01 00:00:00 Completed [facility] Influenza Virus Vaccine Quad .5 mL IM 6+ MO 2018-08-01 00:00:00 Completed [facility] Influenza Virus Vaccine Quad .5 mL IM 6+ MO 2018-08-01 00:00:00 Completed [facility] Influenza Virus Vaccine Quad .5 mL IM 6+ MO 2018-08-01 00:00:00 Completed [facility] TDAP 2011-12-27 00:00:00 Completed [facility] TDAP 2011-12-27 00:00:00 Completed [facility] TDAP 2011-12-27 00:00:00 Completed [facility] TDAP 2011-12-27 00:00:00 Completed [facility] TDAP 2011-12-27 00:00:00 Completed [facility] TDAP 2011-12-27 00:00:00 Completed [facility] TDAP 2011-12-27 00:00:00 Completed [facility] TDAP 2011-12-27 00:00:00 Completed [facility] TDAP 2011-12-27 00:00:00 Completed [facility] TDAP 2011-12-27 00:00:00 Completed [facility] TDAP 2011-12-27 00:00:00 Completed [facility] TDAP 2011-12-27 00:00:00 Completed [facility] Rubella 2009-12-07 00:00:00 Completed [facility] Rubella 2009-12-07 00:00:00 Completed [facility] Rubella 2009-12-07 00:00:00 Completed [facility] Rubella 2009-12-07 00:00:00 Completed [facility] Rubella 2009-12-07 00:00:00 Completed [facility] Rubella 2009-12-07 00:00:00 Completed [facility] Rubella 2009-12-07 00:00:00 Completed [facility] Rubella 2009-12-07 00:00:00 Completed [facility] Rubella 2009-12-07 00:00:00 Completed [facility] Rubella 2009-12-07 00:00:00 Completed [facility] Rubella 2009-12-07 00:00:00 Completed [facility] Rubella 2009-12-07 00:00:00 Completed [facility] Vital Signs Vital Name Observation Time Observation Value Comments S ource Body height 2024-08-31 15:53:00 152.4 cm [facility] Body weight 2024-08-31 15:53:00 68.493 kg [facility] BMI 2024-08-31 15:53:00 29.49 kg/m2 [facility] Systolic blood pressure 2024-07-02 16:17:00 131 mm[Hg] [facility] Diastolic blood pressure 2024-07-02 16:17:00 87 mm[Hg] [facility] Heart rate 2024-07-02 16:17:00 90 /min [facility] Body temperature 2024-07-02 16:17:00 36.17 Delphine [facility] Respiratory rate 2024-07-02 16:17:00 20 /min [facility] Body height 2024-07-02 16:17:00 149.9 cm [facility] Body weight 2024-07-02 16:17:00 69.4 kg [facility] BMI 2024-07-02 16:17:00 30.90 kg/m2 [facility] Oxygen saturation in Arterial blood by Pulse oximetry 2024-07-02 16:17:00 100 /min [facility] Systolic blood pressure 2024-06-14 01:35:00 114 mm[Hg] [facility] Diastolic blood pressure 2024-06-14 01:35:00 79 mm[Hg] [facility] Heart rate 2024-06-14 01:35:00 95 /min [facility] Body temperature 2024-06-14 01:35:00 36.39 Delphine [facility] Oxygen saturation in Arterial blood by Pulse oximetry 2024-06-14 01:35:00 100 /min [facility] Respiratory rate 2024-06-14 01:15:00 18 /min [facility] Body height 2024-06-13 19:28:00 152.4 cm [facility] Body weight 2024-06-13 19:28:00 70.308 kg [facility] BMI 2024-06-13 19:28:00 30.27 kg/m2 [facility] Body height 2023-05-20 15:57:00 152.4 cm [facility] Systolic blood pressure 2023-03-29 14:43:00 130 mm[Hg] [facility] Diastolic blood pressure 2023-03-29 14:43:00 84 mm[Hg] [facility] Heart rate 2023-03-29 14:43:00 75 /min [facility] Body weight 2023-03-29 14:43:00 68.493 kg [facility] BMI 2023-03-29 14:43:00 26.75 kg/m2 [facility] Body height 2022-10-25 16:19:00 160 cm [facility] Body height 2022-07-12 15:21:00 152.4 cm [facility] Systolic blood pressure 2021-11-24 15:15:00 134 mm[Hg] [facility] Diastolic blood pressure 2021-11-24 15:15:00 84 mm[Hg] [facility] Heart rate 2021-11-24 15:15:00 85 /min [facility] Res[facility] 2021-11-24 15:15:00 20 /min [facility] Body height 2021-11-24 15:15:00 152.4 cm [facility] Body weight 2021-11-24 15:15:00 68.72 kg [facility] BMI 2021-11-24 15:15:00 29.59 kg/m2 [facility] Oxygen saturation in Arterial blood by Pulse oximetry 2021-11-24 15:15:00 99 /min [place] [facility] BP Systolic 2024-09-09 11:06:00 138 mm[Hg] Step hen F Leobardo BP Diastolic 2024-09-09 11:06:00 80 mm[Hg] [facility] F Leobardo Weight Measured 2024-09-09 11:06:00 151.80 pounds Tashi Jerald Booth Height Measured 2024-09-09 11:06:00 60.00 inches Tashi F Leobardo Body Temperature 2024-09-09 11:06:00 97.70 degrees Tashi F Leobardo Heart Rate 2024-09-09 11:06:00 77.00 /min Vanda en F Leobardo Respiratory Rate 2024-09-09 11:06:00 17.00 /min Tashi F Leobardo BP Systolic 2024-09-01 14:11:00 130 mm[Hg] Step hen F Leobardo BP Diastolic 2024-09-01 14:11:00 86 mm[Hg] [facility] F Leobardo Weight Measured 2024-09-01 14:11:00 150.80 pounds Tashi Jerald Booth Height Measured 2024-09-01 14:11:00 60.00 inches Tashi Jerald Booth Body Temperature 2024-09-01 14:11:00 97.80 degrees Tashi F Leobardo Heart Rate 2024-09-01 14:11:00 93.00 /min Vanda en F Leobardo Respiratory Rate 2024-09-01 14:11:00 17.00 /min Tashi F Leobardo BP Systolic 2024-04-15 09:46:00 147 mm[Hg] Step hen F Leobardo BP Diastolic 2024-04-15 09:46:00 82 mm[Hg] [facility] phen F Leobardo Weight Measured 2024-04-15 09:46:00 156.40 pounds Tashi F Leobardo Height Measured 2024-04-15 09:46:00 60.00 inches Tashi F Leobardo Body Temperature 2024-04-15 09:46:00 98.50 degrees Tashi F Leobardo Heart Rate 2024-04-15 09:46:00 110.00 /min Step hen F Leobardo Respiratory Rate 2024-04-15 09:46:00 20.00 /min Tashi F Leobardo BP Systolic 2024-04-03 17:34:00 132 mm[Hg] Step hen F Leobardo BP Diastolic 2024-04-03 17:34:00 93 mm[Hg] [facility] phen F Leobardo Weight Measured 2024-04-03 17:34:00 152.80 pounds Tashi F Leobardo Height Measured 2024-04-03 17:34:00 60.00 inches Tashi F Leobardo Body Temperature 2024-04-03 17:34:00 98.30 degrees Tashi F Leobardo Heart Rate 2024-04-03 17:34:00 102.00 /min Step hen F Leobardo Respiratory Rate 2024-04-03 17:34:00 18.00 /min Tashi F Leobardo BP Systolic 2024-02-07 11:14:00 124 mm[Hg] Step hen F Leobardo BP Diastolic 2024-02-07 11:14:00 89 mm[Hg] [facility] phen F Leobardo Weight Measured 2024-02-07 11:14:00 152.80 pounds Tashi F Leobardo Height Measured 2024-02-07 11:14:00 60.00 inches Tashi F Leobardo Body Temperature 2024-02-07 11:14:00 97.20 degrees Tashi F Leobardo Heart Rate 2024-02-07 11:14:00 86.00 /min Vanda en F Leobardo Respiratory Rate 2024-02-07 11:14:00 19.00 /min Tashi F Leobardo BP Systolic 2024-01-31 10:17:00 124 mm[Hg] Step hen F Leobardo BP Diastolic 2024-01-31 10:17:00 76 mm[Hg] [facility] phen F Leobardo Weight Measured 2024-01-31 10:17:00 153.00 pounds Tashi F Leobardo Height Measured 2024-01-31 10:17:00 60.00 inches Tashi F Leobardo Body Temperature 2024-01-31 10:17:00 98.30 degrees Tashi F Leobardo Heart Rate 2024-01-31 10:17:00 88.00 /min Vanda en F Leobardo Respiratory Rate 2024-01-31 10:17:00 18.00 /min Tashi F Leobardo BP Systolic 2023-12-19 17:10:00 124 mm[Hg] Step hen F Leobardo BP Diastolic 2023-12-19 17:10:00 70 mm[Hg] [facility] phen F Leobardo Weight Measured 2023-12-19 17:10:00 158.00 pounds Tashi F Leobardo Height Measured 2023-12-19 17:10:00 60.00 inches Tashi F Leobardo Body Temperature 2023-12-19 17:10:00 98.20 degrees Tashi F Leobardo Heart Rate 2023-12-19 17:10:00 88.00 /min Vanda en F Leobardo Respiratory Rate 2023-12-19 17:10:00 18.00 /min Tashi F Leobardo BP Systolic 2023-10-16 11:18:00 136 mm[Hg] Step hen F Leobardo BP Diastolic 2023-10-16 11:18:00 87 mm[Hg] [facility] phen F Leobardo Weight Measured 2023-10-16 11:18:00 158.00 pounds Tashi F Leobardo Height Measured 2023-10-16 11:18:00 60.00 inches Tashi F Leobardo Body Temperature 2023-10-16 11:18:00 97.30 degrees Tashi F Leobardo Heart Rate 2023-10-16 11:18:00 95.00 /min Vanda en F Leobardo Respiratory Rate 2023-10-16 11:18:00 19.00 /min Tashi F Leobardo BP Systolic 2023-10-02 11:50:00 133 mm[Hg] Step hen F Leobardo BP Diastolic 2023-10-02 11:50:00 86 mm[Hg] [facility] phen F Leobardo Weight Measured 2023-10-02 11:50:00 159.00 pounds Tashi F Leobardo Height Measured 2023-10-02 11:50:00 60.00 inches Tashi F Leobardo Body Temperature 2023-10-02 11:50:00 97.80 degrees Tashi F Leobardo Heart Rate 2023-10-02 11:50:00 84.00 /min Vanda en F Leobardo Respiratory Rate 2023-10-02 11:50:00 19.00 /min Tashi F Leobardo BP Systolic 2023-08-27 16:45:00 119 mm[Hg] Step hen F Leobardo BP Diastolic 2023-08-27 16:45:00 78 mm[Hg] [facility] phen F Leobardo Weight Measured 2023-08-27 16:45:00 158.40 pounds Tashi F Leobardo Height Measured 2023-08-27 16:45:00 60.00 inches Tashi F Leobardo Body Temperature 2023-08-27 16:45:00 98.20 degrees Tashi F Leobardo Heart Rate 2023-08-27 16:45:00 94.00 /min Vanda en F Leobardo Respiratory Rate 2023-08-27 16:45:00 19.00 /min Tashi F Leobardo BP Systolic 2023-07-25 16:34:00 135 mm[Hg] Step hen F Leobardo BP Diastolic 2023-07-25 16:34:00 81 mm[Hg] [facility] phen F Leobardo Weight Measured 2023-07-25 16:34:00 163.40 pounds Tashi F Leobardo Height Measured 2023-07-25 16:34:00 60.00 inches Tashi F Leobardo Body Temperature 2023-07-25 16:34:00 98.10 degrees Tashi F Leobardo Heart Rate 2023-07-25 16:34:00 85.00 /min Vanda en F Leobardo Respiratory Rate 2023-07-25 16:34:00 18.00 /min Tashi F Leobardo BP Systolic 2023-06-24 14:35:00 124 mm[Hg] Step hen F Leobardo BP Diastolic 2023-06-24 14:35:00 63 mm[Hg] [facility] F Leobardo Weight Measured 2023-06-24 14:35:00 163.40 pounds Tashi F Leobardo Height Measured 2023-06-24 14:35:00 60.00 inches Tashi F Leobardo Body Temperature 2023-06-24 14:35:00 97.40 degrees Tashi F Leobardo Heart Rate 2023-06-24 14:35:00 99.00 /min Vanda en F Leobardo Respiratory Rate 2023-06-24 14:35:00 Tashi F Leobardo BP Systolic 2023-05-13 13:34:00 130 mm[Hg] Step hen F Leobardo BP Diastolic 2023-05-13 13:34:00 88 mm[Hg] [facility] F Leobardo Weight Measured 2023-05-13 13:34:00 160.00 pounds Tashi F Leobardo Height Measured 2023-05-13 13:34:00 60.00 inches Tashi F Leobardo Body Temperature 2023-05-13 13:34:00 97.40 degrees Tashi F Leobardo Heart Rate 2023-05-13 13:34:00 93.00 /min Vanda en F Leobardo Respiratory Rate 2023-05-13 13:34:00 Tashi F Leobardo BP Systolic 2023-04-25 11:28:00 134 mm[Hg] Step hen F Leobardo BP Diastolic 2023-04-25 11:28:00 85 mm[Hg] [facility] phen F Leobardo Weight Measured 2023-04-25 11:28:00 156.80 pounds Tashi F Leobardo Height Measured 2023-04-25 11:28:00 60.00 inches Tashi F Leobardo Body Temperature 2023-04-25 11:28:00 97.40 degrees Tashi F Leobardo Heart Rate 2023-04-25 11:28:00 90.00 /min Vanda en F Leobardo Respiratory Rate 2023-04-25 11:28:00 Tashi F Leobardo BP Systolic 2023-04-16 16:09:00 136 mm[Hg] Step hen F Leobardo BP Diastolic 2023-04-16 16:09:00 85 mm[Hg] [facility] phen F Leobardo Weight Measured 2023-04-16 16:09:00 158.60 pounds Tashi F Leobardo Height Measured 2023-04-16 16:09:00 60.00 inches Tashi F Leobardo Body Temperature 2023-04-16 16:09:00 98.20 degrees Tashi F Leobardo Heart Rate 2023-04-16 16:09:00 82.00 /min Vanda en F Leobardo Respiratory Rate 2023-04-16 16:09:00 18.00 /min Tashi F Leobardo BP Systolic 2023-03-07 13:31:00 124 mm[Hg] Step hen F Leobardo BP Diastolic 2023-03-07 13:31:00 83 mm[Hg] [facility] phen F Leobardo Weight Measured 2023-03-07 13:31:00 154.40 pounds Tashi F Leobardo Height Measured 2023-03-07 13:31:00 60.00 inches Tashi F Leobardo Body Temperature 2023-03-07 13:31:00 98.30 degrees Tashi F Leobardo Heart Rate 2023-03-07 13:31:00 93.00 /min Vanda en F Leobardo Respiratory Rate 2023-03-07 13:31:00 Tashi F Leobardo BP Systolic 2023-02-22 13:50:00 129 mm[Hg] Step hen F Leobardo BP Diastolic 2023-02-22 13:50:00 88 mm[Hg] [facility] phen F Leobardo Weight Measured 2023-02-22 13:50:00 Tashi F Leobardo Height Measured 2023-02-22 13:50:00 Tashi F Leobardo Body Temperature 2023-02-22 13:50:00 98.80 degrees Tashi F Leobardo Heart Rate 2023-02-22 13:50:00 88.00 /min Vanda en F Leobardo Respiratory Rate 2023-02-22 13:50:00 Tashi F Leobardo BP Systolic 2023-01-25 10:40:00 133 mm[Hg] Step hen F Leobardo BP Diastolic 2023-01-25 10:40:00 86 mm[Hg] [facility] phen F Leobardo Weight Measured 2023-01-25 10:40:00 156.20 pounds Tashi F Leobardo Height Measured 2023-01-25 10:40:00 60.00 inches Tashi F Leobardo Body Temperature 2023-01-25 10:40:00 98.00 degrees Tashi F Leobardo Heart Rate 2023-01-25 10:40:00 77.00 /min Vanda en F Leobardo Respiratory Rate 2023-01-25 10:40:00 Tashi F Leobardo BP Systolic 2022-06-19 15:56:00 134 mm[Hg] BP Diastolic 2022-06-19 15:56:00 88 mm[Hg] Weight Measured 2022-06-19 15:56:00 160.40 pounds Height Measured 2022-06-19 15:56:00 60.00 inches Body Temperature 2022-06-19 15:56:00 98.40 degrees Heart Rate 2022-06-19 15:56:00 96.00 /min Respiratory Rate 2022-06-19 15:56:00 18.00 /min BP Systolic 2022-05-12 13:14:00 139 mm[Hg] BP Diastolic 2022-05-12 13:14:00 100 mm[Hg] Weight Measured 2022-05-12 13:14:00 158.40 pounds Height Measured 2022-05-12 13:14:00 60.00 inches Body Temperature 2022-05-12 13:14:00 98.30 degrees Heart Rate 2022-05-12 13:14:00 84.00 /min Respiratory Rate 2022-05-12 13:14:00 17.00 /min BP Systolic 2022-04-18 14:57:00 142 mm[Hg] BP Diastolic 2022-04-18 14:57:00 84 mm[Hg] Weight Measured 2022-04-18 14:57:00 160.20 pounds Height Measured 2022-04-18 14:57:00 60.00 inches Body Temperature 2022-04-18 14:57:00 98.20 degrees Heart Rate 2022-04-18 14:57:00 100.00 /min Respiratory Rate 2022-04-18 14:57:00 18.00 /min BP Systolic 2022-03-01 10:46:00 144 mm[Hg] BP Diastolic 2022-03-01 10:46:00 91 mm[Hg] Weight Measured 2022-03-01 10:46:00 159.20 pounds Height Measured 2022-03-01 10:46:00 60.00 inches Body Temperature 2022-03-01 10:46:00 98.20 degrees Heart Rate 2022-03-01 10:46:00 99.00 /min Respiratory Rate 2022-03-01 10:46:00 BP Systolic 2022-01-05 11:51:00 137 mm[Hg] BP Diastolic 2022-01-05 11:51:00 85 mm[Hg] Weight Measured 2022-01-05 11:51:00 160.60 pounds Height Measured 2022-01-05 11:51:00 60.00 inches Body Temperature 2022-01-05 11:51:00 98.10 degrees Heart Rate 2022-01-05 11:51:00 97.00 /min Respiratory Rate 2022-01-05 11:51:00 16.00 /min BP Systolic 2021-08-16 15:21:00 144 mm[Hg] BP Diastolic 2021-08-16 15:21:00 91 mm[Hg] Weight Measured 2021-08-16 15:21:00 155.00 pounds Height Measured 2021-08-16 15:21:00 60.00 inches Body Temperature 2021-08-16 15:21:00 97.20 degrees Heart Rate 2021-08-16 15:21:00 97.00 /min Respiratory Rate 2021-08-16 15:21:00 BP Systolic 2021-02-24 11:32:00 137 mm[Hg] BP Diastolic 2021-02-24 11:32:00 92 mm[Hg] Weight Measured 2021-02-24 11:32:00 156.20 pounds Height Measured 2021-02-24 11:32:00 60.00 inches Body Temperature 2021-02-24 11:32:00 98.70 degrees Heart Rate 2021-02-24 11:32:00 94.00 /min Respiratory Rate 2021-02-24 11:32:00 BP Systolic 2021-02-07 16:26:00 128 mm[Hg] BP Diastolic 2021-02-07 16:26:00 74 mm[Hg] Weight Measured 2021-02-07 16:26:00 153.40 pounds Height Measured 2021-02-07 16:26:00 60.00 inches Body Temperature 2021-02-07 16:26:00 98.60 degrees Heart Rate 2021-02-07 16:26:00 98.00 /min Respiratory Rate 2021-02-07 16:26:00 BP Systolic 2020-10-14 09:30:00 122 mm[Hg] BP Diastolic 2020-10-14 09:30:00 76 mm[Hg] Weight Measured 2020-10-14 09:30:00 152.60 pounds Height Measured 2020-10-14 09:30:00 60.00 inches Body Temperature 2020-10-14 09:30:00 98.40 degrees Heart Rate 2020-10-14 09:30:00 89.00 /min Respiratory Rate 2020-10-14 09:30:00 18.00 /min BP Systolic 2020-10-05 10:12:00 136 mm[Hg] BP Diastolic 2020-10-05 10:12:00 89 mm[Hg] Weight Measured 2020-10-05 10:12:00 151.60 pounds Height Measured 2020-10-05 10:12:00 60.00 inches Body Temperature 2020-10-05 10:12:00 97.50 degrees Heart Rate 2020-10-05 10:12:00 95.00 /min Respiratory Rate 2020-10-05 10:12:00 17.00 /min BP Systolic 2020-01-30 09:39:00 148 mm[Hg] BP Diastolic 2020-01-30 09:39:00 88 mm[Hg] Weight Measured 2020-01-30 09:39:00 152.00 pounds Height Measured 2020-01-30 09:39:00 60.00 inches Body Temperature 2020-01-30 09:39:00 98.00 degrees Heart Rate 2020-01-30 09:39:00 94.00 /min Respiratory Rate 2020-01-30 09:39:00 BP Systolic 2019-08-21 15:06:00 127 mm[Hg] BP Diastolic 2019-08-21 15:06:00 78 mm[Hg] Weight Measured 2019-08-21 15:06:00 150.80 pounds Height Measured 2019-08-21 15:06:00 60.00 inches Body Temperature 2019-08-21 15:06:00 98.70 degrees Heart Rate 2019-08-21 15:06:00 86.00 /min Respiratory Rate 2019-08-21 15:06:00 BP Systolic 2019-07-23 13:17:00 138 mm[Hg] BP Diastolic 2019-07-23 13:17:00 82 mm[Hg] Weight Measured 2019-07-23 13:17:00 151.20 pounds Height Measured 2019-07-23 13:17:00 60.00 inches Body Temperature 2019-07-23 13:17:00 98.40 degrees Heart Rate 2019-07-23 13:17:00 109.00 /min Respiratory Rate 2019-07-23 13:17:00 17.00 /min BP Systolic 2018-12-05 14:20:00 126 mm[Hg] BP Diastolic 2018-12-05 14:20:00 83 mm[Hg] Weight Measured 2018-12-05 14:20:00 151.40 pounds Height Measured 2018-12-05 14:20:00 60.00 inches Body Temperature 2018-12-05 14:20:00 98.50 degrees Heart Rate 2018-12-05 14:20:00 83.00 /min Respiratory Rate 2018-12-05 14:20:00 17.00 /min Procedures Procedure Date / Time Performed Performing Clinician Source PREPARE PACKED RBC 2024-06-13 23:27:13 Jace Arvizu [facility] CT ANGIOGRAM ABDOMEN/PELVIS 2024-06-13 23:18:37 Jace Arvizu [facility] HB ABO GROUPING 2024-06-13 21:48:00 Jace Arvizu [facility] POCT TEST 2024-06-13 21:09:00 Jace Arvizu [facility] BASIC METABOLIC PANEL (NA, K, CL, CO2, GLUCOSE, BUN, CREATININE, CA) 2024-06-13 20:29:00 Jace Arviuz [facility] CBC WITH DIFF 2024-06-13 20:29:00 Jace Arvizu [facility] CONSENT/REFUSAL FOR DIAGNOSIS AND TREATMENT 2023-08-19 15:29:57 Doctor Unassigned, [place] [facility] DISCLOSURE AND CONSENT, MEDICAL AND SURGICAL PROCEDURES 2023-07-01 06:01:00 Doctor Unassigned, [place] [facility] DISCLOSURE AND CONSENT, MEDICAL AND SURGICAL PROCEDURES 2023-05-20 06:01:00 Doctor Unassigned, [place] [facility] DISCLOSURE AND CONSENT, MEDICAL AND SURGICAL PROCEDURES 2023-03-29 05:01:00 Doctor Unassigned, [place] [facility] [address] Colposcopy Cervix Endocervical Curettage 2023-03-07 00:00:00 Tashi Booth DISCLOSURE AND CONSENT, MEDICAL AND SURGICAL PROCEDURES 2023-02-04 05:01:00 Doctor Unassigned, [place] [facility] REFERRAL- REQUEST/RESPONSE 2023-01-18 05:01:00 Doctor Unassigned, [place] [facility] PATIENT FINANCIAL POLICY 2022-09-21 15:07:23 Doctor Unassigned, [place] [facility] PATIENT FINANCIAL RESPONSIBILITY - ALL FORMS 2022-07-31 06:01:00 Doctor Unassigned, [place] [facility] CONSENT/REFUSAL FOR DIAGNOSIS AND TREATMENT 2022-07-12 14:48:06 Doctor Unassigned, [place] 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 Plan of Care Planned Activity Planned Date Details Comments Source Goal Plan of Care Note [code = 73684-9] Goal Plan of Care Note [code = 46775-6] Goal Plan of Care Note [code = 08807-8] Goal Plan of Care Note [code = 19273-8] Goal Plan of Care Note [code = 64604-6] Goal Plan of Care Note [code = 77043-0] Goal Plan of Care Note [code = 77411-2] Goal Plan of Care Note [code = 55937-1] Goal Plan of Care Note [code = 44047-6] Goal Plan of Care Note [code = 77007-1] Goal Plan of Care Note [code = 14518-5] Goal Plan of Care Note [code = 15021-2] Goal Plan of Care Note [code = 41553-1] Goal Plan of Care Note [code = 45182-3] Goal Plan of Care Note [code = 89215-4] Goal Plan of Care Note [code = 81185-7] Goal Plan of Care Note [code = 21979-1] Goal Plan of Care Note [code = 14277-9] Goal Plan of Care Note [code = 20098-3] Goal Plan of Care Note [code = 00614-0] Goal Plan of Care Note [code = 06419-8] Goal Plan of Care Note [code = 59594-4] Goal Plan of Care Note [code = 93842-1] Goal Plan of Care Note [code = 64177-9] Goal Plan of Care Note [code = 12306-6] Goal Plan of Care Note [code = 15765-4] Goal Plan of Care Note [code = 31944-6] Goal Plan of Care Note [code = 65750-3] Goal Plan of Care Note [code = 89251-2] Goal Plan of Care Note [code = 06239-4] Goal Plan of Care Note [code = 54421-3] Goal Plan of Care Note [code = 35625-0] Goal Plan of Care Note [code = 63369-4] Goal Plan of Care Note [code = 14322-1] Goal Plan of Care Note [code = 85429-1] Goal Plan of Care Note [code = 72813-5] Goal Plan of Care Note [code = 97689-0] Goal Plan of Care Note [code = 18562-3] Goal Plan of Care Note [code = 52301-2] Goal Plan of Care Note [code = 06557-7] Goal Plan of Care Note [code = 95113-8] Goal Plan of Care Note [code = 83071-1] Goal Plan of Care Note [code = 52586-8] Goal Plan of Care Note [code = 72519-6] Goal Plan of Care Note [code = 25077-6] Goal Plan of Care Note [code = 25160-4] Goal Plan of Care Note [code = 96989-2] Goal Plan of Care Note [code = 30372-0] Goal Plan of Care Note [code = 67994-1] Goal Plan of Care Note [code = 61893-8] Goal Plan of Care Note [code = 40971-5] Goal Plan of Care Note [code = 27747-0] Goal Plan of Care Note [code = 98518-9] Goal Plan of Care Note [code = 79429-8] Goal Plan of Care Note [code = 86214-1] Goal Plan of Care Note [code = 53603-6] Goal Plan of Care Note [code = 91205-8] Goal Plan of Care Note [code = 20100-6] Goal Plan of Care Note [code = 43267-2] Goal Plan of Care Note [code = 00781-4] Goal Plan of Care Note [code = 22531-9] Goal Plan of Care Note [code = 73833-3] Goal Plan of Care Note [code = 98844-2] Goal Plan of Care Note [code = 68345-0] Goal Plan of Care Note [code = 48279-6] Goal Plan of Care Note [code = 11419-3] Goal Plan of Care Note [code = 41745-6] Goal Plan of Care Note [code = 73792-3] Goal Plan of Care Note [code = 26064-3] Goal Plan of Care Note [code = 63312-3] Goal Plan of Care Note [code = 34411-7] Goal Plan of Care Note [code = 33591-2] Goal Plan of Care Note [code = 82710-7] Goal Plan of Care Note [code = 86933-0] Goal Plan of Care Note [code = 70277-6] Goal Plan of Care Note [code = 66945-2] Goal Plan of Care Note [code = 96180-8] Goal Plan of Care Note [code = 60913-5] Goal Plan of Care Note [code = 09705-0] Goal Plan of Care Note [code = 82041-5] Goal Plan of Care Note [code = 53062-5] Goal Plan of Care Note [code = 61037-5] Goal Plan of Care Note [code = 64959-7] Goal Plan of Care Note [code = 52176-2] Goal Plan of Care Note [code = 63693-0] Goal Plan of Care Note [code = 57695-6] Goal Plan of Care Note [code = 58352-6] Goal Plan of Care Note [code = 64896-2] Goal Plan of Care Note [code = 72563-0] Goal Plan of Care Note [code = 47365-7] Goal Plan of Care Note [code = 01545-5] Goal Plan of Care Note [code = 91446-4] Goal Plan of Care Note [code = 07119-7] Goal Plan of Care Note [code = 46694-9] Goal Plan of Care Note [code = 16920-8] Goal Plan of Care Note [code = 71613-7] Goal Plan of Care Note [code = 06501-4] Goal Plan of Care Note [code = 79432-3] Goal Plan of Care Note [code = 40353-9] Goal Plan of Care Note [code = 97121-4] Goal Plan of Care Note [code = 72137-0] Goal Plan of Care Note [code = 16473-7] Goal Plan of Care Note [code = 80083-5] Goal Plan of Care Note [code = 72276-2] Goal Plan of Care Note [code = 76946-1] Goal Plan of Care Note [code = 91574-7] Goal Plan of Care Note [code = 90586-3] Goal Plan of Care Note [code = 58956-2] Goal Plan of Care Note [code = 19206-9] Goal Plan of Care Note [code = 77077-0] Goal Plan of Care Note [code = 44688-6] Goal Plan of Care Note [code = 83354-8] Goal Plan of Care Note [code = 54945-9] Goal Plan of Care Note [code = 31787-6] Goal Plan of Care Note [code = 21662-3] Goal Plan of Care Note [code = 49217-9] Goal Plan of Care Note [code = 73294-1] Goal Plan of Care Note [code = 11036-6] Goal Plan of Care Note [code = 17054-7] Goal Plan of Care Note [code = 91850-2] Goal Plan of Care Note [code = 42799-1] Goal Plan of Care Note [code = 72044-1] Goal Plan of Care Note [code = 52822-4] Goal Plan of Care Note [code = 60878-4] Goal Plan of Care Note [code = 38825-9] Goal Plan of Care Note [code = 07119-4] Goal Plan of Care Note [code = 52327-1] Goal Plan of Care Note [code = 62937-6] Goal Plan of Care Note [code = 39170-7] Goal Plan of Care Note [code = 47082-2] Goal Plan of Care Note [code = 29638-6] Goal Plan of Care Note [code = 85352-5] Goal Plan of Care Note [code = 01606-4] Goal Plan of Care Note [code = 81771-2] Goal Plan of Care Note [code = 41064-5] Goal Plan of Care Note [code = 53099-5] Goal Plan of Care Note [code = 65372-5] Goal Plan of Care Note [code = 54223-5] Goal Plan of Care Note [code = 04957-3] Encounters Start Date/Time End Date/Time Encounter Type Admission Type Attending [facility] Care Department Encounter ID Source 2024-09-09 14:36:15 2024-09-09 14:36:15 Outpatient [facility] CAROLANN [id number] Tsahi F Leobardo 2024-09-09 00:00:00 2024-09-09 00:00:00 Outpatient Visit [facility] [id number] Tashi Booth 2024-09-01 14:03:07 2024-09-01 14:03:07 Outpatient SFA SFA [id number] Tashi Booth 2024-09-01 00:00:00 2024-09-01 00:00:00 Outpatient Visit [facility] [id number] Tashi Booth 2024-08-31 00:00:00 2024-08-31 13:43:19 Telephone Reginaldo Macdonald [facility] ([facility]) 1..840.114 350.1.13.10 4.2.7.2.686 [id number] [facility] 2024-08-31 10:45:00 2024-08-31 11:37:01 Outpatient NILE CLARK [facility] [id number] [facility] 2024-08-31 10:45:00 2024-08-31 11:37:01 Office Visit Reginaldo Macdonald Erica [facility] ([facility]) 1..840.114 350.1.13.10 4.2.7.2.686 [id number] [facility] 2024-08-27 14:00:00 2024-08-27 16:11:52 Outpatient YARELIS CHAVIRA [facility] [id number] [facility] 2024-07-23 00:00:00 2024-07-23 14:11:07 Telephone Reginaldo Macdonald [facility] 1..840.114 350.1.13.10 4.2.7.2.686 [id number] [facility] 2024-07-02 10:00:00 2024-07-02 11:42:16 Outpatient MARYURI FLANAGAN PAMELA [facility] [id number] [facility] 2024-07-02 10:00:00 2024-07-02 11:42:16 Office Visit Maryuri Tran [facility] 1.2.840.114 350.1.13.10 4.2.7.2.686 [id number] [facility] 2024-06-13 13:29:00 2024-06-13 20:01:00 Emergency X NI SÁNCHEZ BARB [facility] ERT [id number] [facility] 2024-06-13 13:29:00 2024-06-13 20:01:00 Emergency Jace Arvizu [facility] ([facility]) 1.2.840.114 350.1.13.10 4.2.7.2.686 [id number] [facility] 2024-06-01 10:45:00 2024-06-01 11:14:52 Outpatient RICK GONZALES [facility] [id number] [facility] 2024-06-01 10:45:00 2024-06-01 11:14:52 Office Visit Reginaldo Macdonald Erica Wilkerson, Michael G [facility] ([facility]) 1.2.840.114 350.1.13.10 4.2.7.2.686 [id number] [facility] 2024-05-29 10:00:00 2024-05-29 10:00:00 Outpatient PRASHANTH MATHIS [facility] [id number] [facility] 2024-04-15 00:00:00 2024-04-15 00:00:00 Outpatient Visit [facility] [id number] Tashi Booth 2024-04-03 17:27:12 2024-04-03 17:27:12 Outpatient [facility] CAROLANN [id number] Tashi Booth 2024-04-03 00:00:00 2024-04-03 00:00:00 Outpatient Visit [facility] [id number] Tashi Booth 2024-04-01 00:00:00 2024-04-02 09:24:05 [facility] [place] [facility] 1.2.840.114 350.1.13.10 4.2.7.2.686 [id number] [facility] 2024-02-07 11:23:34 2024-02-07 11:23:34 Outpatient SFA SFA [id number] Tashi Booth 2024-02-07 00:00:00 2024-02-07 00:00:00 Outpatient Visit [facility] [id number] Tashi Booth 2024-02-03 13:00:00 2024-02-03 13:30:50 Outpatient R YARELIS REILLY [facility] [id number] [facility] 2024-02-03 13:00:00 2024-02-03 13:30:50 Office Visit Yarelis Reilly [facility] 1.2.840.114 350.1.13.10 4.2.7.2.686 [id number] [facility] 2024-01-31 10:08:34 2024-01-31 10:08:34 Outpatient SFA SFA 822 Tashi Booth 2024-01-31 00:00:00 2024-01-31 00:00:00 Outpatient Visit [facility] [id number] Tashi Booth 2024-01-09 11:00:00 2024-01-09 11:29:56 Outpatient R KRISTINE SHI [facility] [id number] [facility] 2024-01-09 11:00:00 2024-01-09 11:29:56 Office Visit Lamar Ladan Ping Shi Weavervilledee Powers [facility] 1.2.840.114 350.1.13.10 4.2.7.2.686 [id number] [facility] 2023-12-19 17:02:35 2023-12-19 17:02:35 Outpatient SFA SFA 0711 Tashi Booth 2023-12-19 00:00:00 2023-12-19 00:00:00 Outpatient Visit [facility] [id number] Tashi Booth 2023-10-28 14:30:00 2023-10-28 15:00:00 Office Visit Yarelis Reilly [facility] 1.2.840.114 350.1.13.10 4.2.7.2.686 [id number] [facility] 2023-10-28 14:30:00 2023-10-28 14:30:00 Outpatient R YARELIS REILLY [facility] [id number] [facility] 2023-10-16 11:16:20 2023-10-16 11:16:20 Outpatient SFA [facility] [id number] Tashi Marques Leobardo 2023-10-16 00:00:00 2023-10-16 00:00:00 Outpatient Visit SFA [id number] Tashi Booth 2023-10-02 11:37:29 2023-10-02 11:37:29 Outpatient SFA SFA 0424 Tashi Booth 2023-10-02 00:00:00 2023-10-02 00:00:00 Outpatient Visit SFA [id number] Tashi Booth 2023-08-27 16:41:31 2023-08-27 16:41:31 Outpatient SFA SFA [id number] Tashi Booth 2023-08-19 11:15:00 2023-08-19 12:07:25 Outpatient R YARELIS REILLY [facility] [id number] [facility] 2023-08-19 11:15:00 2023-08-19 12:07:25 Office Visit Yarelis Reilly [facility] 1.114 350.1.13.10 4.2.7.2.686 [id number] [facility] 2023-08-19 00:00:00 2023-08-19 00:00:00 Orders Only Doctor Unassigned, [place] [facility] 1.114 350.1.13.10 4.2.7.2.686 [id number] [facility] 2023-07-25 16:27:39 2023-07-25 16:27:39 Outpatient SFA [facility] [id number] Tashi Booth 2023-07-01 09:30:00 2023-07-01 09:55:32 Outpatient R YARELIS REILLY [facility] [id number] [facility] 2023-07-01 09:30:00 2023-07-01 09:55:32 Office Visit Yarelis Reilly [facility] 1.114 350.1.13.10 4.2.7.2.686 [id number] [facility] 2023-07-01 00:00:00 2023-07-01 00:00:00 Orders Only Doctor Unassigned, [place] [facility] 1.114 350.1.13.10 4.2.7.2.686 [id number] [facility] 2023-06-26 09:00:00 2023-06-26 09:00:00 Outpatient R HI CRAWLEY ELISHA [facility] [id number] [facility] 2023-06-24 14:26:19 2023-06-24 14:26:19 Outpatient SFA [facility] [id number] Tashi Booth 2023-05-29 10:00:00 2023-05-29 10:00:00 Outpatient R HI CRAWLEY ELISHA [facility] [id number] [facility] 2023-05-20 10:00:00 2023-05-20 10:54:42 Outpatient R YARELIS REILLY [facility] [id number] [facility] 2023-05-20 10:00:00 2023-05-20 10:54:42 Office Visit Yarelis Reilly [facility] 1.840.114 350.1.13.10 4.2.7.2.686 [id number] [facility] 2023-05-20 00:00:00 2023-05-20 00:00:00 Orders Only Doctor Unassigned, [place] [facility] 1.840.114 350.1.13.10 4.2.7.2.686 [id number] [facility] [id number] [facility] 2023-05-13 13:26:47 2023-05-13 13:26:47 Outpatient SFA [facility] [id number] Tashi Booth 2023-04-25 11:20:41 2023-04-25 11:20:41 Outpatient SFA [facility] [id number] Tashi Booth 2023-04-18 11:47:02 2023-04-18 11:47:02 Outpatient SFA [facility] [id number] Tashi Booth 2023-04-18 10:00:00 2023-04-18 10:00:00 Outpatient BRITTANY MOTA [facility] [id number] [facility] 2023-04-16 16:02:28 2023-04-16 16:02:28 Outpatient SFA [facility] [id number] Tashi Booth 2023-04-05 09:45:00 2023-04-05 09:45:00 Outpatient LASHAUN CORDERO [facility] [id number] [facility] 2023-03-29 09:30:00 2023-03-29 09:56:41 Outpatient R YARELIS REILLY [facility] [id number] [facility] 2023-03-29 09:30:00 2023-03-29 09:56:41 Office Visit Yarelis Reilly [facility] 1.840.114 350.1.13.10 4.2.7.2.686 [id number] [facility] 2023-03-29 00:00:00 2023-03-29 00:00:00 Orders Only Doctor Unassigned, [place] [facility] 1.840.114 350.1.13.10 4.2.7.2.686 [id number] [facility] 2023-03-27 00:00:00 2023-03-27 00:00:00 [facility] 1.840.114 350.1.13.10 4.2.7.2.686 [id number] [facility] 2023-03-15 09:45:00 2023-03-15 09:45:00 Outpatient LASHAUN CORDERO [facility] [id number] [facility] 2023-03-13 09:45:00 2023-03-13 09:45:00 Outpatient LASHAUN CORDERO [facility] [id number] [facility] 2023-03-07 13:25:26 2023-03-07 13:25:26 Outpatient [facility] 0928 Tashi Booth 2023-02-22 13:36:53 2023-02-22 13:36:53 Outpatient S[facility] [id number] Tashi Booth 2023-02-04 15:00:00 2023-02-04 15:24:10 Outpatient R YARELIS REILLY [facility] [id number] [facility] 2023-02-04 15:00:00 2023-02-04 15:24:10 Office Visit Yarelis Reilly [facility] 1.84.114 350.1.13.10 4.2.7.2.686 [id number] [facility] 2023-02-04 00:00:00 2023-02-04 00:00:00 Orders Only Doctor Unassigned, [place] [facility] 1.840.114 350.1.13.10 4.2.7.2.686 [id number] [facility] 2023-01-25 10:31:07 2023-01-25 10:31:07 Outpatient SFA [facility] 18 Tashi Booth 2023-01-18 09:59:34 2023-01-18 09:59:34 Outpatient [facility] 11 Tashi Booth 2023-01-18 00:00:00 2023-01-18 00:00:00 Orders Only Doctor Unassigned, [place] [facility] 1.840.114 350.1.13.10 4.2.7.2.686 [id number] [facility] 2023-01-11 11:50:36 2023-01-11 11:50:36 Outpatient S[facility] [id number] Tsahi Booth 2022-12-14 16:00:00 2022-12-14 16:26:36 Outpatient R YARELIS REILLY [facility] [id number] [facility] 2022-12-14 16:00:00 2022-12-14 16:26:36 Office Visit Yarelis Reilly [facility] 1.84.114 350.1.13.10 4.2.7.2.686 [id number] [facility] 2022-10-25 11:20:00 2022-10-25 11:34:40 Outpatient R MAIKEL BRITTANY [facility] [id number] [facility] 2022-10-25 11:20:00 2022-10-25 11:34:40 [facility] [place] [facility] 1.840.114 350.1.13.10 4.2.7.2.686 [id number] [facility] 2022-10-15 09:00:22 2022-10-15 09:00:22 Outpatient [facility] [id number] Tashi Booth 2022-10-11 11:20:00 2022-10-11 11:20:00 Outpatient R BRITTANY KO [facility] [id number] [facility] 2022-10-08 09:30:00 2022-10-08 09:30:00 Outpatient R [facility]ELIS [facility]Y [facility] [facility] [id number] [facility] 2022-10-05 10:30:00 2022-10-05 10:30:00 [facility] [id number] [facility] 2022-09-21 10:00:00 2022-09-21 10:39:06 Outpatient R YARELIS REILLY [facility] [id number] [facility] 2022-09-21 10:00:00 2022-09-21 10:39:06 Office Visit Yarelis Reilly [facility] 1.840.114 350.1.13.10 4.2.7.2.686 [id number] [facility] 2022-09-21 00:00:00 2022-09-21 00:00:00 Orders Only Doctor Unassigned, [place] [facility] 1.2840.114 350.1.13.10 4.2.7.2.686 [id number] [facility] 2022-09-15 13:06:28 2022-09-15 13:06:28 Outpatient [facility] [id number] Tashi Marques Leobardo 2022-08-03 10:08:17 2022-08-03 10:08:17 Outpatient [facility] 0224 Tashi Booth 2022-07-31 13:30:00 2022-07-31 14:09:41 Outpatient R BRITTANY KO [facility] [id number] [facility] 2022-07-31 00:00:00 2022-07-31 00:00:00 Orders Only Doctor Unassigned, [place] [facility] 1.2840.114 350.1.13.10 4.2.7.2.686 [id number] [facility] 2022-07-12 09:20:00 2022-07-12 09:37:27 Outpatient R BRITTANY KO [facility] [id number] [facility] 2022-07-12 09:20:00 2022-07-12 09:37:27 Office Visit Brittany Ko [facility] 1.840.114 350.1.13.10 4.2.7.2.686 [id number] [facility] 2022-07-12 00:00:00 2022-07-12 00:00:00 Orders Only Doctor Unassigned, [place] [facility] 1.2840.114 350.1.13.10 4.2.7.2.686 [id number] [facility] 2022-07-07 09:09:58 2022-07-07 09:09:58 Outpatient [facility] 0128 Tashi Booth 2022-06-19 15:53:04 2022-06-19 15:53:04 Outpatient [facility] 0110 Tashi Booth 2022-06-19 00:00:00 2022-06-19 00:00:00 Outpatient Visit [id number] 2022-05-12 13:01:34 2022-05-12 13:01:34 Outpatient [facility] 1203 Tashi Booth 2022-05-12 00:00:00 2022-05-12 00:00:00 Outpatient Visit [id number]-[id number] 2022-04-18 14:45:34 2022-04-18 14:45:34 Outpatient [facility]FA [facility] 1109 Tashi Booth 2022-04-18 00:00:00 2022-04-18 00:00:00 Outpatient Visit [id number]-[id number] 2022-03-01 00:00:00 2022-03-01 00:00:00 Outpatient Visit [id number] 2022-01-05 00:00:00 2022-01-05 00:00:00 Outpatient Visit [id number] 2021-12-08 00:00:00 2021-12-08 00:00:00 Orders Only Doctor Unassigned, [place] [facility] 1.2.840.114 350.1.13.10 4.2.7.2.686 [id number] [facility] 2021-11-24 10:00:00 2021-11-24 10:30:00 Office Visit Mayo Salazar [facility] 1.2.840.114 350.1.13.10 4.2.7.2.686 [id number] [facility] 2021-11-24 10:00:00 2021-11-24 10:00:00 Outpatient R TOMASZ SALAZARROQUEURBANONestor [facility] [id number] [facility] 2021-11-16 00:00:00 2021-11-16 00:00:00 Telephone Mayo Salazar [facility] 1.2840.114 350.1.13.10 4.2.7.2.686 [id number] [facility] 2021-11-10 14:00:00 2021-11-10 14:00:00 Outpatient R RIGOBERTO ROMO [facility] [id number] [facility] 2021-06-15 10:00:00 2021-06-15 10:30:00 Office Visit Mayo Salazar [facility] 1.2.840.114 350.1.13.10 4.2.7.2.686 [id number] [facility] [id number] [facility] 2021-06-15 10:00:00 2021-06-15 10:00:00 Outpatient R MAYO SALAZAR [facility] [id number] [facility] 2021-06-15 10:00:00 2021-06-15 10:00:00 [facility] [id number] [facility] 2021-06-15 00:00:00 2021-06-15 00:00:00 Orders Only Doctor Unassigned, [place] [facility] 1.2.840.114 350.1.13.10 4.2.7.2.686 [id number] [facility] 2021-05-26 13:30:00 2021-05-26 14:47:06 Outpatient R RIGOBERTO ROMO [facility] [id number] [facility] 2021-05-26 13:30:00 2021-05-26 14:47:06 [facility] 1.2.840.114 350.1.13.10 4.2.7.2.686 [id number] [facility] 2021-05-10 00:00:00 2021-05-10 00:00:00 [facility] 1.2840.114 350.1.13.10 4.2.7.2.686 [id number] [facility] 2021-04-28 13:29:36 2021-04-28 14:35:55 [facility] 1.2840.114 350.1.13.10 4.2.7.2.686 [id number] [facility] 2021-04-28 13:15:00 2021-04-28 14:35:55 Outpatient R RINACAMMARCE PRANAVAureliano [facility] [id number] [facility] 2021-04-04 00:00:00 2021-04-04 00:00:00 [facility] 1.2840.114 350.1.13.10 4.2.7.2.686 [id number] [facility] 2021-03-31 12:51:37 2021-03-31 15:14:30 [facility] 1.2840.114 350.1.13.10 4.2.7.2.686 [id number] [facility] 2021-03-31 13:15:00 2021-03-31 13:15:00 Outpatient R RIGOBERTO ROMO [facility] [id number] [facility] 2021-03-31 00:00:00 2021-03-31 00:00:00 Orders Only Doctor Unassigned, [place] [facility] 1.2.840.114 350.1.13.10 4.2.7.2.686 [id number] [facility] 2021-02-27 00:00:00 2021-02-27 00:00:00 Telephone Rigoberto Romo [facility] 1.2.840.114 350.1.13.10 4.2.7.2.686 [id number] [facility] 2021-02-08 00:00:00 2021-02-08 00:00:00 Orders Only [facility]ally [facility] 1.2.840.114 350.1.13.10 4.2.7.2.686 [id number] [facility] 2021-02-08 00:00:00 2021-02-08 00:00:00 Orders Only [facility] 1.2.840.114 350.1.13.10 4.2.7.2.686 [id number] [facility] 2021-02-08 00:00:00 2021-02-08 00:00:[address] [facility] 1.2840.114 350.1.13.10 4.2.7.2.686 [id number] [facility] 2021-02-02 00:00:00 2021-02-02 00:00:00 Telephone Rigoberto Romo [facility] 1.2.840.114 350.1.13.10 4.2.7.2.686 [id number] [facility] 2021-02-02 00:00:00 2021-02-02 00:00:00 Telephone [facility] 1.2840.114 350.1.13.10 4.2.7.2.686 [id number] [facility] 2020-11-23 09:10:18 2020-11-23 10:10:31 Office Visit Rigoberto Romo [employer], [place] [facility] [place] [facility] 1.840.114 350.1.13.10 4.2.7.2.686 [id number] [facility] 2020-11-23 09:00:00 2020-11-23 09:00:00 Outpatient NILE CLARK [facility] [id number] [facility] 2020-11-03 10:10:00 2020-11-03 10:10:00 Outpatient DANA BARBER [facility] [id number] [facility] 2020-10-24 10:40:00 2020-10-24 10:40:00 Outpatient SAURAV SILVER [facility] [id number] [facility] 2020-10-06 10:30:00 2020-10-06 10:30:00 Outpatient [facility] [id number] [facility] 2020-09-26 10:40:00 2020-09-26 10:40:00 Outpatient SAURAV SILVER [facility] [id number] [facility] 2020-09-26 10:40:00 2020-09-26 10:19:47 Outpatient SAURAV SILVER [facility] [id number] [facility] 2020-04-12 14:20:00 2020-04-12 14:20:00 Outpatient Byron PHILIPPE NGUYEN [facility] [id number] [facility] 2020-03-17 00:00:00 2020-03-17 00:00:00 Telephone [facility] [place] 1.2.840.114 350.1.13.10 4.2.7.2.686 [id number] [facility] 2020-03-17 00:00:00 2020-03-17 00:00:00 Telephone Afua [place]ssa [facility] 1.2840.114 350.1.13.10 4.2.7.2.686 [id number] 2020-02-24 00:00:00 2020-02-24 00:00:00 Refill Valentin Huff [facility] 1.2840.114 350.1.13.10 4.2.7.2.686 [id number] [facility] 2020-01-28 00:00:00 2020-01-28 00:00:00 Telephone Hui Mas [facility] 1.840.114 350.1.13.10 4.2.7.2.686 [id number] [facility] 2019-12-30 00:00:00 2019-12-30 00:00:00 Telephone Jennifer Jorge [facility] 1.840.114 350.1.13.10 4.2.7.2.686 [id number] [facility] 2019-12-29 09:12:24 2019-12-29 09:38:42 Laboratory Only Lab, Adc Fam Connie Torres [facility] Office [address] [facility] 1.840.114 350.1.13.10 4.2.7.2.686 [id number] [facility] 2019-12-29 09:20:00 2019-12-29 09:20:00 Outpatient CONNIE PAULA [facility] [id number] [facility] 2019-12-29 00:00:00 2019-12-29 00:00:00 Letter (Out) Doctor Unassigned, [place] [facility] 1.2.840.114 350.1.13.10 4.2.7.2.686 [id number] [facility] 2017-07-01 09:30:00 2017-07-01 09:30:00 Outpatient [facility] [id number] [facility] 2017-04-22 09:30:00 2017-04-22 09:30:00 [facility] [id number] [facility] Results Test Description Test Time Test Comments Results Result Comments Source CT Angiogram abdomen/pelvis 23:29:19 EXAM: CT ANGIOGRAM ABDOMEN/PELVIS 06/13/2024 4:52 PM ORDERING PROVIDER: JACE ARVIZU HISTORY: 43 years-old Female; Ordered Indication: GI bleed, lower rectal bleeding off-on for a while, worsening in past 1 week.now withsevere anemia. hx of hemorrhoids . TECHNIQUE: Multiphasic axial imaging from the level of the lung basesthrough the proximal thighs was performed before and after theuncomplicated administration of intravenous contrast. Coronal and sagittalreconstructions were obtained. COMPARISON: CT abdomen pelvis obtained on 03/23/2017 FINDINGS: LOWER THORAX: The lung bases are clear. LIVER: No suspicious hepatic lesion is seen. GALLBLADDER AND BILIARY TREE: The gallbladder appears unremarkable. Nobiliary ductal dilatation is visualized. SPLEEN: The spleen is normal in size. PANCREAS: No ductal dilation or solid mass is visualized. ADRENAL GLANDS: No mass is seen. KIDNEYS/URETER/BLADDER: No stone, hydronephrosis, or suspicious mass isvisualized. The bladder is unremarkable. ? PELVIC ORGANS: No suspicious pelvic mass is seen. Small uterine fibroidsare again seen. GI TRACT: No intraluminal contrast extravasation is seen. No obstruction isseen. The appendix appears unremarkable. PERITONEUM AND RETROPERITONEUM: No intra-abdominal free air or fluidcollection is visualized. A small fat-containing inguinal hernia ispresent. LYMPH NODES: No suspicious lymphadenopathy is seen. VESSELS: The vessels are patent. BONES AND SOFT TISSUES: No suspicious osseous lesion is seen. [facility] with [id number] 21:23:27* Test Item Value Reference Range Interpretation Comme nts WBC (test code = 6690-2) 6.05 4.30-11.10 RBC (test code = 789-8) 3.79 3.93-5.25 L HGB (test code = 718-7) 6.2 g/dL 11.6-15.0 L HCT (test code = 4544-3) 22.5 % 35.7-45.2 L MCV (test code = 787-2) 59.4 fL 80.6-95.5 L MCH (test code = 785-6) 16.4 pg 25.9-32.8 L MCHC (test code = 786-4) 27.6 g/dL 31.6-35.1 L RDW-SD (test code = 25209-9) 40.6 fL 39.0-49.9 RDW-CV (test code = 788-0) 19.9 % 12.0-15.5 H PLT (test code = 777-3) 350 166-358 MPV (test code = 56986-1) 9.8 fL 9.5-12.9 IPF % (test code = 6711693238) 6.4 % 1.3-7.7 Platelet count measured by fluorescence method. NRBC/100 WBC (test code = 0050053716) 0.5 0.0-10.0 NRBC x10^3 (test code = 1416811715) 0.03 See_Comment [Automated [employer]ield[employer] ge] The system which generated this result transmitted reference range: 10*3/?L. The reference range was not used to interpret this result as normal/abnormal. GRAN MAT (NEUT) % (test code = 770-8) 68.1 % IMM GRAN % (test code = 4617436951) 0.70 % LYMPH % (test code = 736-9) 24.1 % MONO % (test code = 5905-5) 5.6 % EOS % (test code = 713-8) 1.0 % BASO % (test code = 706-2) 0.5 % GRAN MAT x10^3(ANC) (test code = 6015822188) 4.12 10*3/uL 1.88-7.09 IMM GRAN x10^3 (test code = 7530418294) 0.04 10*3/uL 0.00-0.06 LYMPH x10^3 (test code = 731-0) 1.46 10*3/uL 1.32-3.29 MONO x10^3 (test code = 742-7) 0.34 10*3/uL 0.33-0.92 EOS x10^3 (test code = 711-2) 0.06 10*3/uL 0.03-0.39 BASO x10^3 (test code = 704-7) 0.03 10*3/uL 0.01-0.07 Lab Interpretation (test code = 53109-6) Abnormal [id number] 21:09:00* Test Item Value Reference Range Interpretation Comme nts POCT PREG (test code = 1605) Negative On board controls acceptable with C Line (test code = 3574) Yes Lab Interpretation (test cod e = 07779-1) Normal [facility] Metabolic Panel (NA, K, CL, CO2, GLUCOSE, BUN, CREATININE, CA)2024-06-13 21:04:23* Test Item Value Reference Range Interpretation Comme [facility] NA (test code = 7203252103) 137 mmol/L 135-145 K (test code = 2226367733) 4.1 mmol/L 3.5-5.0 CL (test code = 4475887384) 105 mmol/L 98-108 CO2 TOTAL (test code = 8011689274) 26 mmol/L 23-31 AGAP (test code = 9279849057) 6 2-16 BUN (test code = 2057128119) 8 mg/dL 7-23 GLUCOSE (test code = 0049455359) 101 mg/dL 70-110 CREATININE (test code = 2160-0) 0.65 mg/dL 0.50-1.04 CALCIUM (test code = 0823717417) 9.1 mg/dL 8.6-10.6 eGFR (test code = 73134-1) 112.9 mL/min/1.73m2 CKD-EPI eGFR (20 21). Assuming creatinine has been stable day-to-day for at least three months, the eGFR indicates Category G1 (>= 90 mL/min/1.73 m2) [facility] [ADDED] 2024-02-12 00:00:00* Test Item Value Reference Range Interpretation Comme nts GLUCOSE (test code = 2217) 96 MG/DL BUN (test code = 2208) 10 MG/DL CREATININE (test code = 2214) 0.76 MG/DL eGFR (2020 CKD-EPI) (test code = 85255) 100 ML/MIN/1.73 CALC BUN/CREAT (test code = 2235) 13 RATIO SODIUM (test code = 2231) 134 MEQ/L POTASSIUM (test code = 2228) 4.3 MEQ/L CHLORIDE (test code = 2215) 100 MEQ/L CARBON DIOXIDE (test code = 2206) 18 MEQ/L CALCIUM (test code = 2209) 9.5 MG/DL PROTEIN, TOTAL (test code = 2229) 7.9 G/DL ALBUMIN (test code = 2201) 5.0 G/DL CALC GLOBULIN (test code = 2240) 2.9 G/DL CALC A/G RATIO (test code = 2234) 1.7 RATIO BILIRUBIN, TOTAL (test code = 2207) 0.4 MG/DL ALKALINE PHOSPHATASE (test code = 2204) 83 U/L AST (test code = 2218) 17 U/L ALT (test code = 2219) 20 U/L Tashi BoothNOTE: [ADDED]2024-02-12 00:00:00* Test Item Value Reference Range Interpretation Comme nts NOTE: (test code = 998) (NOTE) Tashi BoothCOMPREHENSIVE METABOLIC PANEL [ADDED]2024-02-12 00:00:00* Test Item Value Reference Range Interpretation Comme nts GLUCOSE (test code = 2217) 96 MG/DL BUN (test code = 2208) 10 MG/DL CREATININE (test code = 2214) 0.76 MG/DL eGFR (2020 CKD-EPI) (test code = 33653) 100 ML/MIN/1.73 CALC BUN/CREAT (test code = 2235) 13 RATIO SODIUM (test code = 2231) 134 MEQ/L POTASSIUM (test code = 2228) 4.3 MEQ/L CHLORIDE (test code = 2215) 100 MEQ/L CARBON DIOXIDE (test code = 2206) 18 MEQ/L CALCIUM (test code = 2209) 9.5 MG/DL PROTEIN, TOTAL (test code = 2229) 7.9 G/DL ALBUMIN (test code = 2201) 5.0 G/DL CALC GLOBULIN (test code = 2240) 2.9 G/DL CALC A/G RATIO (test code = 2234) 1.7 RATIO BILIRUBIN, TOTAL (test code = 2207) 0.4 MG/DL ALKALINE PHOSPHATASE (test code = 2204) 83 U/L AST (test code = 2218) 17 U/L ALT (test code = 2219) 20 U/L Tashi BoothNOTE: [ADDED]2024-02-12 00:00:00* Test Item Value Reference Range Interpretation Comme nts NOTE: (test code = 998) (NOTE) Tashi BoothCOMPREHENSIVE METABOLIC PANEL [ADDED]2024-02-12 00:00:00* Test Item Value Reference Range Interpretation Comme nts GLUCOSE (test code = 2217) 96 MG/DL BUN (test code = 2208) 10 MG/DL CREATININE (test code = 2214) 0.76 MG/DL eGFR (2020 CKD-EPI) (test code = 23592) 100 ML/MIN/1.73 CALC BUN/CREAT (test code = 2235) 13 RATIO SODIUM (test code = 2231) 134 MEQ/L POTASSIUM (test code = 2228) 4.3 MEQ/L CHLORIDE (test code = 2215) 100 MEQ/L CARBON DIOXIDE (test code = 2206) 18 MEQ/L CALCIUM (test code = 2209) 9.5 MG/DL PROTEIN, TOTAL (test code = 2229) 7.9 G/DL ALBUMIN (test code = 2201) 5.0 G/DL CALC GLOBULIN (test code = 2240) 2.9 G/DL CALC A/G RATIO (test code = 2234) 1.7 RATIO BILIRUBIN, TOTAL (test code = 2207) 0.4 MG/DL ALKALINE PHOSPHATASE (test code = 2204) 83 U/L AST (test code = 2218) 17 U/L ALT (test code = 2219) 20 U/L Tashi Marques LeobardoNOTE: [ADDED]2024-02-12 00:00:00* Test Item Value Reference Range Interpretation Comme nts NOTE: (test code = 998) (NOTE) Tashi BoothCOMPREHENSIVE METABOLIC PANEL [ADDED]2024-02-12 00:00:00* Test Item Value Reference Range Interpretation Comme nts GLUCOSE (test code = 2217) 96 MG/DL BUN (test code = 2208) 10 MG/DL CREATININE (test code = 2214) 0.76 MG/DL eGFR (2020 CKD-EPI) (test code = 23036) 100 ML/MIN/1.73 CALC BUN/CREAT (test code = 2235) 13 RATIO SODIUM (test code = 2231) 134 MEQ/L POTASSIUM (test code = 2228) 4.3 MEQ/L CHLORIDE (test code = 2215) 100 MEQ/L CARBON DIOXIDE (test code = 2206) 18 MEQ/L CALCIUM (test code = 2209) 9.5 MG/DL PROTEIN, TOTAL (test code = 2229) 7.9 G/DL ALBUMIN (test code = 2201) 5.0 G/DL CALC GLOBULIN (test code = 2240) 2.9 G/DL CALC A/G RATIO (test code = 2234) 1.7 RATIO BILIRUBIN, TOTAL (test code = 2207) 0.4 MG/DL ALKALINE PHOSPHATASE (test code = 2204) 83 U/L AST (test code = 2218) 17 U/L ALT (test code = 2219) 20 U/L Tashi Marques LeobardoNOTE: [ADDED]2024-02-12 00:00:00* Test Item Value Reference Range Interpretation Comme nts NOTE: (test code = 998) (NOTE) Tashi BoothCBC W/AUTO [id number] 00:00:00* Test Item Value Reference Range Interpretation Comme nts WBC (test code = 1001) 6.8 K/UL RBC (test code = 1002) 5.13 M/UL HEMOGLOBIN (test code = 1003) 11.0 G/DL HEMATOCRIT (test code = 1004) 37.1 % MCV (test code = 1005) 72.3 fL MCH (test code = 1006) 21.4 PG MCHC (test code = 1007) 29.6 G/DL RDW (test code = 1038) 22.1 % NEUTROPHILS (test code = 1008) 72.9 % LYMPHOCYTES (test code = 1010) 17.4 % MONOCYTES (test code = 1011) 7.8 % EOSINOPHILS (test code = 1012) 0.9 % BASOPHILS (test code = 1013) 0.9 % IMMATURE GRANULOCYTES (test code = 1036) 0.1 % NUCLEATED RBCS (test code = 1065) 0.0 /100WBC'S PLATELET COUNT (test code = 1015) 310 K/UL ABSOLUTE NEUTROPHILS (test c ode = 1066) 4.96 K/UL ABSOLUTE LYMPHOCYTES (test c ode = 1067) 1.18 K/UL ABSOLUTE MONOCYTES (test cod e = 1068) 0.53 K/UL ABSOLUTE EOSINOPHILS (test c ode = 1040) 0.06 K/UL ABSOLUTE BASOPHILS (test cod e = 1069) 0.06 K/UL ABS IMMATURE GRANULOCYTES (t est code = 1020) 0.01 K/UL ABS NUCLEATED RBCS (test cod e = 16586) 0.00 K/UL Tashi BoothACUTE HEPATITIS [id number] 00:00:00* Test Item Value Reference Range Interpretation Comme nts HEPATITIS A IgM (test code = 18971) NON-REACTIVE HEPATITIS B CORE IgM (test c ode = 4644) NON-REACTIVE HEPATITIS B SURF AG (test co de = 2739) NON-REACTIVE HEPATITIS C ANTIBODY (test c ode = 4675) NON-REACTIVE INTERPRETATION HEPATITIS A: (test code = 2552) (NOTE) INTERPRETATION HEPATITIS B: (test code = 74929) (NOTE) INTERPRETATION HEPATITIS C: (test code = 98751) (NOTE) Tashi BoothHIV 1/2 4TH GEN, RFLX [id number] 00:00:00* Test Item Value Reference Range Interpretation Comme nts HIV 1/2 4TH GEN, RFLX CONF ( test code = 3514) NON-REACTIVE Tashi BoothHEMOGLOBIN [id number] 00:00:00* Test Item Value Reference Range Interpretation Comme nts HEMOGLOBIN A1c (test code = 81791) 5.3 % Tashi BoothLIPID [id number] 00:00:00* Test Item Value Reference Range Interpretation Comme nts CHOLESTEROL (test code = 2210) 218 MG/DL TRIGLYCERIDES (test code = 2232) 123 MG/DL HDL CHOLESTEROL (test code = 2220) 68 MG/DL CALC LDL CHOL (test code = 2237) 127 MG/DL RISK RATIO LDL/HDL (test cod e = 2238) 1.87 RATIO Tashi BoothCBC W/AUTO [id number] 00:00:00* Test Item Value Reference Range Interpretation Comme nts WBC (test code = 1001) 6.8 K/UL RBC (test code = 1002) 5.13 M/UL HEMOGLOBIN (test code = 1003) 11.0 G/DL HEMATOCRIT (test code = 1004) 37.1 % MCV (test code = 1005) 72.3 fL MCH (test code = 1006) 21.4 PG MCHC (test code = 1007) 29.6 G/DL RDW (test code = 1038) 22.1 % NEUTROPHILS (test code = 1008) 72.9 % LYMPHOCYTES (test code = 1010) 17.4 % MONOCYTES (test code = 1011) 7.8 % EOSINOPHILS (test code = 1012) 0.9 % BASOPHILS (test code = 1013) 0.9 % IMMATURE GRANULOCYTES (test code = 1036) 0.1 % NUCLEATED RBCS (test code = 1065) 0.0 /100WBC'S PLATELET COUNT (test code = 1015) 310 K/UL ABSOLUTE NEUTROPHILS (test c ode = 1066) 4.96 K/UL ABSOLUTE LYMPHOCYTES (test c ode = 1067) 1.18 K/UL ABSOLUTE MONOCYTES (test cod e = 1068) 0.53 K/UL ABSOLUTE EOSINOPHILS (test c ode = 1040) 0.06 K/UL ABSOLUTE BASOPHILS (test cod e = 1069) 0.06 K/UL ABS IMMATURE GRANULOCYTES (t est code = 1020) 0.01 K/UL ABS NUCLEATED RBCS (test cod e = 62593) 0.00 K/UL Tashi BoothACUTE HEPATITIS [id number] 00:00:00* Test Item Value Reference Range Interpretation Comme nts HEPATITIS A IgM (test code = 43769) NON-REACTIVE HEPATITIS B CORE IgM (test c ode = 4644) NON-REACTIVE HEPATITIS B SURF AG (test co de = 2739) NON-REACTIVE HEPATITIS C ANTIBODY (test c ode = 4675) NON-REACTIVE INTERPRETATION HEPATITIS A: (test code = 2552) (NOTE) INTERPRETATION HEPATITIS B: (test code = 95261) (NOTE) INTERPRETATION HEPATITIS C: (test code = 75489) (NOTE) Tashi BoothHIV 1/2 4TH GEN, RFLX [id number] 00:00:00* Test Item Value Reference Range Interpretation Comme nts HIV 1/2 4TH GEN, RFLX CONF ( test code = 3514) NON-REACTIVE Tashi BoothHEMOGLOBIN [id number] 00:00:00* Test Item Value Reference Range Interpretation Comme sreekanth HEMOGLOBIN A1c (test code = 59277) 5.3 % Tashi BoothLIPID [id number] 00:00:00* Test Item Value Reference Range Interpretation Comme nts CHOLESTEROL (test code = 2210) 218 MG/DL TRIGLYCERIDES (test code = 2232) 123 MG/DL HDL CHOLESTEROL (test code = 2220) 68 MG/DL CALC LDL CHOL (test code = 2237) 127 MG/DL RISK RATIO LDL/HDL (test cod e = 2238) 1.87 RATIO Tashi BoothCBC W/AUTO [id number] 00:00:00* Test Item Value Reference Range Interpretation Comme nts WBC (test code = 1001) 6.8 K/UL RBC (test code = 1002) 5.13 M/UL HEMOGLOBIN (test code = 1003) 11.0 G/DL HEMATOCRIT (test code = 1004) 37.1 % MCV (test code = 1005) 72.3 fL MCH (test code = 1006) 21.4 PG MCHC (test code = 1007) 29.6 G/DL RDW (test code = 1038) 22.1 % NEUTROPHILS (test code = 1008) 72.9 % LYMPHOCYTES (test code = 1010) 17.4 % MONOCYTES (test code = 1011) 7.8 % EOSINOPHILS (test code = 1012) 0.9 % BASOPHILS (test code = 1013) 0.9 % IMMATURE GRANULOCYTES (test code = 1036) 0.1 % NUCLEATED RBCS (test code = 1065) 0.0 /100WBC'S PLATELET COUNT (test code = 1015) 310 K/UL ABSOLUTE NEUTROPHILS (test c ode = 1066) 4.96 K/UL ABSOLUTE LYMPHOCYTES (test c ode = 1067) 1.18 K/UL ABSOLUTE MONOCYTES (test cod e = 1068) 0.53 K/UL ABSOLUTE EOSINOPHILS (test c ode = 1040) 0.06 K/UL ABSOLUTE BASOPHILS (test cod e = 1069) 0.06 K/UL ABS IMMATURE GRANULOCYTES (t est code = 1020) 0.01 K/UL ABS NUCLEATED RBCS (test cod e = 41887) 0.00 K/UL Tashi BoothACUTE HEPATITIS [id number] 00:00:00* Test Item Value Reference Range Interpretation Comme nts HEPATITIS A IgM (test code = 80929) NON-REACTIVE HEPATITIS B CORE IgM (test c ode = 4644) NON-REACTIVE HEPATITIS B SURF AG (test co de = 2739) NON-REACTIVE HEPATITIS C ANTIBODY (test c ode = 4675) NON-REACTIVE INTERPRETATION HEPATITIS A: (test code = 2552) (NOTE) INTERPRETATION HEPATITIS B: (test code = 22399) (NOTE) INTERPRETATION HEPATITIS C: (test code = 02986) (NOTE) Tashi BoothHIV 1/2 4TH GEN, RFLX [id number] 00:00:00* Test Item Value Reference Range Interpretation Comme nts HIV 1/2 4TH GEN, RFLX CONF ( test code = 3514) NON-REACTIVE Tashi BoothHEMOGLOBIN [id number] 00:00:00* Test Item Value Reference Range Interpretation Comme nts HEMOGLOBIN A1c (test code = 06662) 5.3 % Tashi BoothLIPID [id number] 00:00:00* Test Item Value Reference Range Interpretation Comme nts CHOLESTEROL (test code = 2210) 218 MG/DL TRIGLYCERIDES (test code = 2232) 123 MG/DL HDL CHOLESTEROL (test code = 2220) 68 MG/DL CALC LDL CHOL (test code = 2237) 127 MG/DL RISK RATIO LDL/HDL (test cod e = 2238) 1.87 RATIO Tashi BoothCBC W/AUTO [id number] 00:00:00* Test Item Value Reference Range Interpretation Comme nts WBC (test code = 1001) 6.8 K/UL RBC (test code = 1002) 5.13 M/UL HEMOGLOBIN (test code = 1003) 11.0 G/DL HEMATOCRIT (test code = 1004) 37.1 % MCV (test code = 1005) 72.3 fL MCH (test code = 1006) 21.4 PG MCHC (test code = 1007) 29.6 G/DL RDW (test code = 1038) 22.1 % NEUTROPHILS (test code = 1008) 72.9 % LYMPHOCYTES (test code = 1010) 17.4 % MONOCYTES (test code = 1011) 7.8 % EOSINOPHILS (test code = 1012) 0.9 % BASOPHILS (test code = 1013) 0.9 % IMMATURE GRANULOCYTES (test code = 1036) 0.1 % NUCLEATED RBCS (test code = 1065) 0.0 /100WBC'S PLATELET COUNT (test code = 1015) 310 K/UL ABSOLUTE NEUTROPHILS (test c ode = 1066) 4.96 K/UL ABSOLUTE LYMPHOCYTES (test c ode = 1067) 1.18 K/UL ABSOLUTE MONOCYTES (test cod e = 1068) 0.53 K/UL ABSOLUTE EOSINOPHILS (test c ode = 1040) 0.06 K/UL ABSOLUTE BASOPHILS (test cod e = 1069) 0.06 K/UL ABS IMMATURE GRANULOCYTES (t est code = 1020) 0.01 K/UL ABS NUCLEATED RBCS (test cod e = 73499) 0.00 K/UL Tashi BoothACUTE HEPATITIS [id number] 00:00:00* Test Item Value Reference Range Interpretation Comme nts HEPATITIS A IgM (test code = 64235) NON-REACTIVE HEPATITIS B CORE IgM (test c ode = 4644) NON-REACTIVE HEPATITIS B SURF AG (test co de = 2739) NON-REACTIVE HEPATITIS C ANTIBODY (test c ode = 4675) NON-REACTIVE INTERPRETATION HEPATITIS A: (test code = 2552) (NOTE) INTERPRETATION HEPATITIS B: (test code = 44668) (NOTE) INTERPRETATION HEPATITIS C: (test code = 07895) (NOTE) Tashi BoothHIV 1/2 4TH GEN, RFLX [id number] 00:00:00* Test Item Value Reference Range Interpretation Comme nts HIV 1/2 4TH GEN, RFLX CONF ( test code = 3514) NON-REACTIVE Tashi BoothHEMOGLOBIN [id number] 00:00:00* Test Item Value Reference Range Interpretation Comme nts HEMOGLOBIN A1c (test code = 51462) 5.3 % Tashi BoothLIPID [id number] 00:00:00* Test Item Value Reference Range Interpretation Comme nts CHOLESTEROL (test code = 2210) 218 MG/DL TRIGLYCERIDES (test code = 2232) 123 MG/DL HDL CHOLESTEROL (test code = 2220) 68 MG/DL CALC LDL CHOL (test code = 2237) 127 MG/DL RISK RATIO LDL/HDL (test cod e = 2238) 1.87 RATIO Tashi BoothCBC W/AUTO [id number] 00:00:00* Test Item Value Reference Range Interpretation Comme nts WBC (test code = 1001) 6.8 K/UL RBC (test code = 1002) 5.13 M/UL HEMOGLOBIN (test code = 1003) 11.0 G/DL HEMATOCRIT (test code = 1004) 37.1 % MCV (test code = 1005) 72.3 fL MCH (test code = 1006) 21.4 PG MCHC (test code = 1007) 29.6 G/DL RDW (test code = 1038) 22.1 % NEUTROPHILS (test code = 1008) 72.9 % LYMPHOCYTES (test code = 1010) 17.4 % MONOCYTES (test code = 1011) 7.8 % EOSINOPHILS (test code = 1012) 0.9 % BASOPHILS (test code = 1013) 0.9 % IMMATURE GRANULOCYTES (test code = 1036) 0.1 % NUCLEATED RBCS (test code = 1065) 0.0 /100WBC'S PLATELET COUNT (test code = 1015) 310 K/UL ABSOLUTE NEUTROPHILS (test c ode = 1066) 4.96 K/UL ABSOLUTE LYMPHOCYTES (test c ode = 1067) 1.18 K/UL ABSOLUTE MONOCYTES (test cod e = 1068) 0.53 K/UL ABSOLUTE EOSINOPHILS (test c ode = 1040) 0.06 K/UL ABSOLUTE BASOPHILS (test cod e = 1069) 0.06 K/UL ABS IMMATURE GRANULOCYTES (t est code = 1020) 0.01 K/UL ABS NUCLEATED RBCS (test cod e = 59053) 0.00 K/UL Tashi BoothACUTE HEPATITIS [id number] 00:00:00* Test Item Value Reference Range Interpretation Comme nts HEPATITIS A IgM (test code = 11821) NON-REACTIVE HEPATITIS B CORE IgM (test c ode = 4644) NON-REACTIVE HEPATITIS B SURF AG (test co de = 2739) NON-REACTIVE HEPATITIS C ANTIBODY (test c ode = 4673) NON-REACTIVE INTERPRETATION HEPATITIS A: (test code = 2552) (NOTE) INTERPRETATION HEPATITIS B: (test code = 19690) (NOTE) INTERPRETATION HEPATITIS C: (test code = 54033) (NOTE) Tashi BoothHIV 1/2 4TH GEN, RFLX [id number] 00:00:00* Test Item Value Reference Range Interpretation Comme nts HIV 1/2 4TH GEN, RFLX CONF ( test code = 3514) NON-REACTIVE Tashi BoothHEMOGLOBIN [id number] 00:00:00* Test Item Value Reference Range Interpretation Comme nts HEMOGLOBIN A1c (test code = 43133) 5.3 % Tashi BoothLIPID [id number] 00:00:00* Test Item Value Reference Range Interpretation Comme nts CHOLESTEROL (test code = 2210) 218 MG/DL TRIGLYCERIDES (test code = 2232) 123 MG/DL HDL CHOLESTEROL (test code = 2220) 68 MG/DL CALC LDL CHOL (test code = 2237) 127 MG/DL RISK RATIO LDL/HDL (test cod e = 2238) 1.87 RATIO Tashi Rivero, [id number] 00:00:00* Test Item Value Reference Range Interpretation Comme nts CULTURE, URINE (test code = 80106) SPECIMEN NUMBER: [id number] Tashi Rivero, [id number] 00:00:00* Test Item Value Reference Range Interpretation Comme nts CULTURE, URINE (test code = 59866) SPECIMEN NUMBER: [id number] Tashi AustinLTURE, [id number] 00:00:00* Test Item Value Reference Range Interpretation Comme nts CULTURE, URINE (test code = 82206) SPECIMEN NUMBER: [id number] Tashi BoothCULTEDGAR, [id number] 00:00:00* Test Item Value Reference Range Interpretation Comme nts CULTURE, URINE (test code = 42293) SPECIMEN NUMBER: [id number] Tashi BoothCULTEDGAR, [id number] 00:00:00* Test Item Value Reference Range Interpretation Comme nts CULTURE, URINE (test code = 17132) SPECIMEN NUMBER: [id number] Tashi BoothCULTURE, [id number] 00:00:00* Test Item Value Reference Range Interpretation Comme nts CULTURE, URINE (test code = 82011) SPECIMEN NUMBER: [id number] Tashi Marques AustinHEMOGLOBIN [id number] 00:31:46* Test Item Value Reference Range Interpretation Comme nts HEMOGLOBIN A1c (test code = 76499) 5.0 % 4.2-5.6 HEMOGLOBIN [id number] 00:00:00* Test Item Value Reference Range Interpretation Comme nts HEMOGLOBIN A1c (test code = 96231) 5.0 % Tashi Marques AustinHEMOGLOBIN [id number] 00:00:00* Test Item Value Reference Range Interpretation Comme nts HEMOGLOBIN A1c (test code = 01096) 5.0 % Tashi Marques AustinHEMOGLOBIN [id number] 00:00:00* Test Item Value Reference Range Interpretation Comme nts HEMOGLOBIN A1c (test code = 29978) 5.0 % Tashi Marques AustinHEMOGLOBIN [id number] 00:00:00* Test Item Value Reference Range Interpretation Comme nts HEMOGLOBIN A1c (test code = 62703) 5.0 % Tashi Marques AustinHEMOGLOBIN [id number] 00:00:00* Test Item Value Reference Range Interpretation Comme nts HEMOGLOBIN A1c (test code = 68504) 5.0 % Tashi Marques AustinHEMOGLOBIN [id number] 00:00:00* Test Item Value Reference Range Interpretation Comme nts HEMOGLOBIN A1c (test code = 53170) 5.0 % Tashi Marques AustinHEMOGLOBIN [id number] 00:00:00* Test Item Value Reference Range Interpretation Comme nts HEMOGLOBIN A1c (test code = 56696) 5.0 % Tashi Marques AustinHEMOGLOBIN [id number] 00:00:00* Test Item Value Reference Range Interpretation Comme nts HEMOGLOBIN A1c (test code = 88412) 5.0 % Tashi Marques AustinCBC W/AUTO DIFF WITH [id number] 11:18:21* Test Item Value Reference Range Interpretation Comme nts WBC (test code = 1001) 4.1 K/UL 3.5-11.0 RBC (test code = 1002) 4.04 M/UL 3.80-5.40 HEMOGLOBIN (test code = 1003) 8.1 G/DL 11.5-15.5 L HEMATOCRIT (test code = 1004) 28.6 % 34.0-45.0 L MCV (test code = 1005) 70.8 fL 80.0-99.0 L MCH (test code = 1006) 20.0 PG 25.0-33.0 L MCHC (test code = 1007) 28.3 G/DL 31.0-36.0 L RDW (test code = 1038) 18.4 % 11.5-15.0 H NEUTROPHILS (test code = 1008) 59.3 % AUTOMATED DIFFERENTIAL CONFIRMED WITH MANUAL SLIDE REVIEW. LYMPHOCYTES (test code = 1010) 28.4 % MONOCYTES (test code = 1011) 9.1 % EOSINOPHILS (test code = 1012) 2.0 % BASOPHILS (test code = 1013) 1.0 % IMMATURE GRANULOCYTES (test code = 1036) 0.2 % NUCLEATED RBCS (test code = 1065) 0.0 /100 WBC'S See_Comment [Automated message] The system which generated this result transmitted reference range: 0.0. The reference range was not used to interpret this result as normal/abnormal. PLATELET COUNT (test code = 1015) 310 K/UL 130-400 ABSOLUTE NEUTROPHILS (test code = 1066) 2.40 K/UL 1.50-7.50 ABSOLUTE LYMPHOCYTES (test code = 1067) 1.15 K/UL 1.00-4.00 ABSOLUTE MONOCYTES (test code = 1068) 0.37 K/UL 0.20-1.00 ABSOLUTE EOSINOPHILS (test code = 1040) 0.08 K/UL 0.00-0.50 ABSOLUTE BASOPHILS (test code = 1069) 0.04 K/UL 0.00-0.20 ABS IMMATURE GRANULOCYTES (test code = 1020) 0.01 K/UL 0.00-0.10 ABS NUCLEATED RBCS (test code = 27346) 0.00 K/UL 0.00-0.11 COMMENTS (test code = 1016) (NOTE) MODERATE ANISOCY TOSIS FEW ELLIPTOCYTES MARKED HYPOCHROMASIA MODERATE MICROCYTOSIS SLIGHT POIKILOCYTOSIS SLIGHT POLYCHROMASIA FEW TEAR DROP CELLS PLATELETS APPEAR NORMAL UNLESS OTHERWISE INDICATED, ALL TESTING PERFORMED AT [facility] [address] [place] [id number] DIVISION ORDER ANALYST: KIANNA YING M.D. CLIA NUMBER [id number] [facility] [place] [id number] TSH, THIRD [id number] 04:38:02* Test Item Value Reference Range Interpretation Comme [facility] TSH, THIRD GENERATION (test code = 2821) 1.300 UIU/ML 0.400-4.100 VITAMIN D, 25 [id number] 04:35:52* Test Item Value Reference Range Interpretation Comme [facility] VITAMIN D, 25 OH (test code = 4958) 43 NG/ML SEE BELOW NOTE: 25-HYDR OXYVITAMIN D ASSAY INCLUDES 25-HYDROXYVITAMIN D2 AND D3. INTERPRETIVE RANGES PEDIATRIC (<17 YEARS) . . . . . . . . . . . NG/ML 20-100ADULT: INSUFFICIENT . . . . . . . . . . . . . . NG/ML <20 SUBOPTIMAL . . . . . . . . . . . . . . . NG/ML 20-29 OPTIMAL . . . . . . . . . . . . . . . . . NG/ML 30-100 COMPREHENSIVE METABOLIC [id number] 04:35:16* Test Item Value Reference Range Interpretation Comme [facility] GLUCOSE (test code = 2217) 89 MG/DL 70-99 BUN (test code = 2207) 9 MG/DL 6-20 CREATININE (test code = 2214) 0.64 MG/DL 0.60-1.30 eGFR (2020 CKD-EPI) (test code = 59352) 113 ML/MIN/1.73 >60 CALC BUN/CREAT (test code = 2235) 14 RATIO 6-28 SODIUM (test code = 2231) 139 MEQ/L 133-146 POTASSIUM (test code = 2228) 4.3 MEQ/L 3.5-5.4 CHLORIDE (test code = 2215) 104 MEQ/L 95-107 CARBON DIOXIDE (test code = 2206) 22 MEQ/L 19-31 CALCIUM (test code = 2209) 9.1 MG/DL 8.5-10.5 PROTEIN, TOTAL (test code = 2228) 7.4 G/DL 6.1-8.3 ALBUMIN (test code = 2200) 4.8 G/DL 3.5-5.2 CALC GLOBULIN (test code = 2240) 2.6 G/DL 1.9-3.7 CALC A/G RATIO (test code = 2234) 1.8 RATIO 1.0-2.6 BILIRUBIN, TOTAL (test code = 2207) 0.2 MG/DL <=1.2 ALKALINE PHOSPHATASE (test code = 2204) 80 U/L 40-113 AST (test code = 2218) 18 U/L 9-40 ALT (test code = 2219) 20 U/L 5-40 LIPID [id number] 04:35:16* Test Item Value Reference Range Interpretation Comme nts CHOLESTEROL (test code = 2210) 238 MG/DL <200 H TRIGLYCERIDES (test code = 2232) 124 MG/DL <150 HDL CHOLESTEROL (test code = 2220) 63 MG/DL >39 CALC LDL CHOL (test code = 2237) 150 MG/DL <100 H NOTE: CALCULATED LDL IS BASED ON MARCIANO-JACOBO METHOD WHICHINCLUDES ADJUSTABLE TRIGLYCERIDE:VLDL CHOLESTEROL RATIO.THIS FACTOR VARIES BY MEASURED TRIGLYCERIDE AND NON-HDLCHOLESTEROL CONCENTRATIONS WITH INCREASED CALCULATED LDL SEENIN HIGHER TRIGLYCERIDE OR LOWER NON-HDL SPECIMENS. FOR MOREINFORMATION, SEE CLIENT ANNOUNCEMENT AT [email or web address] RISK RATIO LDL/HDL (test code = 2238) 2.38 RATIO <3.22 LIPID [id number] 00:00:00* Test Item Value Reference Range Interpretation Comme nts CHOLESTEROL (test code = 2210) 238 MG/DL TRIGLYCERIDES (test code = 2232) 124 MG/DL HDL CHOLESTEROL (test code = 2220) 63 MG/DL CALC LDL CHOL (test code = 2237) 150 MG/DL RISK RATIO LDL/HDL (test cod e = 2238) 2.38 RATIO Tashi BoothTSH, THIRD [id number] 00:00:00* Test Item Value Reference Range Interpretation Comme nts TSH, THIRD GENERATION (test code = 2821) 1.300 UIU/ML Tashi BoothVITAMIN D, 25 [id number] 00:00:00* Test Item Value Reference Range Interpretation Comme nts VITAMIN D, 25 OH (test code = 4958) 43 NG/ML Tashi BoothCBC W/AUTO [id number] 00:00:00* Test Item Value Reference Range Interpretation Comme nts WBC (test code = 1001) 4.1 K/UL RBC (test code = 1002) 4.04 M/UL HEMOGLOBIN (test code = 1003) 8.1 G/DL HEMATOCRIT (test code = 1004) 28.6 % MCV (test code = 1005) 70.8 fL MCH (test code = 1006) 20.0 PG MCHC (test code = 1007) 28.3 G/DL RDW (test code = 1038) 18.4 % NEUTROPHILS (test code = 1008) 59.3 % LYMPHOCYTES (test code = 1010) 28.4 % MONOCYTES (test code = 1011) 9.1 % EOSINOPHILS (test code = 1012) 2.0 % BASOPHILS (test code = 1013) 1.0 % IMMATURE GRANULOCYTES (test code = 1036) 0.2 % NUCLEATED RBCS (test code = 1065) 0.0 /100WBC'S PLATELET COUNT (test code = 1015) 310 K/UL ABSOLUTE NEUTROPHILS (test c ode = 1066) 2.40 K/UL ABSOLUTE LYMPHOCYTES (test c ode = 1067) 1.15 K/UL ABSOLUTE MONOCYTES (test cod e = 1068) 0.37 K/UL ABSOLUTE EOSINOPHILS (test c ode = 1040) 0.08 K/UL ABSOLUTE BASOPHILS (test cod e = 1069) 0.04 K/UL ABS IMMATURE GRANULOCYTES (t est code = 1020) 0.01 K/UL ABS NUCLEATED RBCS (test cod e = 44134) 0.00 K/UL COMMENTS (test code = 1016) (NOTE) Tashi BoothCOMPREHENSIVE METABOLIC [id number] 00:00:00* Test Item Value Reference Range Interpretation Comme nts GLUCOSE (test code = 2217) 89 MG/DL BUN (test code = 2208) 9 MG/DL CREATININE (test code = 2214) 0.64 MG/DL eGFR (2020 CKD-EPI) (test code = 24337) 113 ML/MIN/1.73 CALC BUN/CREAT (test code = 2235) 14 RATIO SODIUM (test code = 2231) 139 MEQ/L POTASSIUM (test code = 2228) 4.3 MEQ/L CHLORIDE (test code = 2215) 104 MEQ/L CARBON DIOXIDE (test code = 2206) 22 MEQ/L CALCIUM (test code = 2209) 9.1 MG/DL PROTEIN, TOTAL (test code = 2229) 7.4 G/DL ALBUMIN (test code = 2201) 4.8 G/DL CALC GLOBULIN (test code = 2240) 2.6 G/DL CALC A/G RATIO (test code = 2234) 1.8 RATIO BILIRUBIN, TOTAL (test code = 2207) 0.2 MG/DL ALKALINE PHOSPHATASE (test code = 2204) 80 U/L AST (test code = 2218) 18 U/L ALT (test code = 2219) 20 U/L Tashi BoothLIPID [id number] 00:00:00* Test Item Value Reference Range Interpretation Comme nts CHOLESTEROL (test code = 2210) 238 MG/DL TRIGLYCERIDES (test code = 2232) 124 MG/DL HDL CHOLESTEROL (test code = 2220) 63 MG/DL CALC LDL CHOL (test code = 2237) 150 MG/DL RISK RATIO LDL/HDL (test cod e = 2238) 2.38 RATIO Tashi BoothTSH, THIRD [id number] 00:00:00* Test Item Value Reference Range Interpretation Comme [facility] TSH, THIRD GENERATION (test code = 2821) 1.300 UIU/ML Tashi BoothVITAMIN D, 25 [id number] 00:00:00* Test Item Value Reference Range Interpretation Comme [facility] VITAMIN D, 25 OH (test code = 4958) 43 NG/ML Tashi BoothCBC W/AUTO [id number] 00:00:00* Test Item Value Reference Range Interpretation Comme sreekanth WBC (test code = 1001) 4.1 K/UL RBC (test code = 1002) 4.04 M/UL HEMOGLOBIN (test code = 1003) 8.1 G/DL HEMATOCRIT (test code = 1004) 28.6 % MCV (test code = 1005) 70.8 fL MCH (test code = 1006) 20.0 PG MCHC (test code = 1007) 28.3 G/DL RDW (test code = 1038) 18.4 % NEUTROPHILS (test code = 1008) 59.3 % LYMPHOCYTES (test code = 1010) 28.4 % MONOCYTES (test code = 1011) 9.1 % EOSINOPHILS (test code = 1012) 2.0 % BASOPHILS (test code = 1013) 1.0 % IMMATURE GRANULOCYTES (test code = 1036) 0.2 % NUCLEATED RBCS (test code = 1065) 0.0 /100WBC'S PLATELET COUNT (test code = 1015) 310 K/UL ABSOLUTE NEUTROPHILS (test c ode = 1066) 2.40 K/UL ABSOLUTE LYMPHOCYTES (test c ode = 1067) 1.15 K/UL ABSOLUTE MONOCYTES (test cod e = 1068) 0.37 K/UL ABSOLUTE EOSINOPHILS (test c ode = 1040) 0.08 K/UL ABSOLUTE BASOPHILS (test cod e = 1069) 0.04 K/UL ABS IMMATURE GRANULOCYTES (t est code = 1020) 0.01 K/UL ABS NUCLEATED RBCS (test cod e = 35732) 0.00 K/UL COMMENTS (test code = 1016) (NOTE) Tashi Marques LeobardoCOMPREHENSIVE METABOLIC [id number] 00:00:00* Test Item Value Reference Range Interpretation Comme nts GLUCOSE (test code = 2217) 89 MG/DL BUN (test code = 2208) 9 MG/DL CREATININE (test code = 2214) 0.64 MG/DL eGFR (2020 CKD-EPI) (test code = 26364) 113 ML/MIN/1.73 CALC BUN/CREAT (test code = 2235) 14 RATIO SODIUM (test code = 2231) 139 MEQ/L POTASSIUM (test code = 2228) 4.3 MEQ/L CHLORIDE (test code = 2215) 104 MEQ/L CARBON DIOXIDE (test code = 2206) 22 MEQ/L CALCIUM (test code = 2209) 9.1 MG/DL PROTEIN, TOTAL (test code = 2229) 7.4 G/DL ALBUMIN (test code = 2201) 4.8 G/DL CALC GLOBULIN (test code = 2240) 2.6 G/DL CALC A/G RATIO (test code = 2234) 1.8 RATIO BILIRUBIN, TOTAL (test code = 2207) 0.2 MG/DL ALKALINE PHOSPHATASE (test code = 2204) 80 U/L AST (test code = 2218) 18 U/L ALT (test code = 2219) 20 U/L Tashi Marques LeobardoLIPID [id number] 00:00:00* Test Item Value Reference Range Interpretation Comme nts CHOLESTEROL (test code = 2210) 238 MG/DL TRIGLYCERIDES (test code = 2232) 124 MG/DL HDL CHOLESTEROL (test code = 2220) 63 MG/DL CALC LDL CHOL (test code = 2237) 150 MG/DL RISK RATIO LDL/HDL (test cod e = 2238) 2.38 RATIO Tashi OhH, THIRD [id number] 00:00:00* Test Item Value Reference Range Interpretation Comme nts TSH, THIRD GENERATION (test code = 2821) 1.300 UIU/ML Tashi BoothVITAMIN D, 25 [id number] 00:00:00* Test Item Value Reference Range Interpretation Comme nts VITAMIN D, 25 OH (test code = 4958) 43 NG/ML Tashi BoothCBC W/AUTO [id number] 00:00:00* Test Item Value Reference Range Interpretation Comme nts WBC (test code = 1001) 4.1 K/UL RBC (test code = 1002) 4.04 M/UL HEMOGLOBIN (test code = 1003) 8.1 G/DL HEMATOCRIT (test code = 1004) 28.6 % MCV (test code = 1005) 70.8 fL MCH (test code = 1006) 20.0 PG MCHC (test code = 1007) 28.3 G/DL RDW (test code = 1038) 18.4 % NEUTROPHILS (test code = 1008) 59.3 % LYMPHOCYTES (test code = 1010) 28.4 % MONOCYTES (test code = 1011) 9.1 % EOSINOPHILS (test code = 1012) 2.0 % BASOPHILS (test code = 1013) 1.0 % IMMATURE GRANULOCYTES (test code = 1036) 0.2 % NUCLEATED RBCS (test code = 1065) 0.0 /100WBC'S PLATELET COUNT (test code = 1015) 310 K/UL ABSOLUTE NEUTROPHILS (test c ode = 1066) 2.40 K/UL ABSOLUTE LYMPHOCYTES (test c ode = 1067) 1.15 K/UL ABSOLUTE MONOCYTES (test cod e = 1068) 0.37 K/UL ABSOLUTE EOSINOPHILS (test c ode = 1040) 0.08 K/UL ABSOLUTE BASOPHILS (test cod e = 1069) 0.04 K/UL ABS IMMATURE GRANULOCYTES (t est code = 1020) 0.01 K/UL ABS NUCLEATED RBCS (test cod e = 38701) 0.00 K/UL COMMENTS (test code = 1016) (NOTE) Tashi BoothCOMPREHENSIVE METABOLIC [id number] 00:00:00* Test Item Value Reference Range Interpretation Comme nts GLUCOSE (test code = 2217) 89 MG/DL BUN (test code = 2208) 9 MG/DL CREATININE (test code = 2214) 0.64 MG/DL eGFR (2020 CKD-EPI) (test code = ) 113 ML/MIN/1.73 CALC BUN/CREAT (test code = 2235) 14 RATIO SODIUM (test code = 2231) 139 MEQ/L POTASSIUM (test code = 2228) 4.3 MEQ/L CHLORIDE (test code = 2215) 104 MEQ/L CARBON DIOXIDE (test code = 2206) 22 MEQ/L CALCIUM (test code = 2209) 9.1 MG/DL PROTEIN, TOTAL (test code = 2229) 7.4 G/DL ALBUMIN (test code = 2201) 4.8 G/DL CALC GLOBULIN (test code = 2240) 2.6 G/DL CALC A/G RATIO (test code = 2234) 1.8 RATIO BILIRUBIN, TOTAL (test code = 2207) 0.2 MG/DL ALKALINE PHOSPHATASE (test code = 2204) 80 U/L AST (test code = 2218) 18 U/L ALT (test code = 2219) 20 U/L Tashi BoothLIPID [id number] 00:00:00* Test Item Value Reference Range Interpretation Comme nts CHOLESTEROL (test code = 2210) 238 MG/DL TRIGLYCERIDES (test code = 2232) 124 MG/DL HDL CHOLESTEROL (test code = 2220) 63 MG/DL CALC LDL CHOL (test code = 2237) 150 MG/DL RISK RATIO LDL/HDL (test cod e = 2238) 2.38 RATIO Tashi BoothTSH, THIRD [id number] 00:00:00* Test Item Value Reference Range Interpretation Comme [facility] TSH, THIRD GENERATION (test code = 2821) 1.300 UIU/ML Tashi BoothVITAMIN D, 25 [id number] 00:00:00* Test Item Value Reference Range Interpretation Comme [facility] VITAMIN D, 25 OH (test code = 4958) 43 NG/ML Tashi BoothCBC W/AUTO [id number] 00:00:00* Test Item Value Reference Range Interpretation Comme nts WBC (test code = 1001) 4.1 K/UL RBC (test code = 1002) 4.04 M/UL HEMOGLOBIN (test code = 1003) 8.1 G/DL HEMATOCRIT (test code = 1004) 28.6 % MCV (test code = 1005) 70.8 fL MCH (test code = 1006) 20.0 PG MCHC (test code = 1007) 28.3 G/DL RDW (test code = 1038) 18.4 % NEUTROPHILS (test code = 1008) 59.3 % LYMPHOCYTES (test code = 1010) 28.4 % MONOCYTES (test code = 1011) 9.1 % EOSINOPHILS (test code = 1012) 2.0 % BASOPHILS (test code = 1013) 1.0 % IMMATURE GRANULOCYTES (test code = 1036) 0.2 % NUCLEATED RBCS (test code = 1065) 0.0 /100WBC'S PLATELET COUNT (test code = 1015) 310 K/UL ABSOLUTE NEUTROPHILS (test c ode = 1066) 2.40 K/UL ABSOLUTE LYMPHOCYTES (test c ode = 1067) 1.15 K/UL ABSOLUTE MONOCYTES (test cod e = 1068) 0.37 K/UL ABSOLUTE EOSINOPHILS (test c ode = 1040) 0.08 K/UL ABSOLUTE BASOPHILS (test cod e = 1069) 0.04 K/UL ABS IMMATURE GRANULOCYTES (t est code = 1020) 0.01 K/UL ABS NUCLEATED RBCS (test cod e = 48170) 0.00 K/UL COMMENTS (test code = 1016) (NOTE) Tashi BoothCOMPREHENSIVE METABOLIC [id number] 00:00:00* Test Item Value Reference Range Interpretation Comme nts GLUCOSE (test code = 2217) 89 MG/DL BUN (test code = 2208) 9 MG/DL CREATININE (test code = 2214) 0.64 MG/DL eGFR (2020 CKD-EPI) (test code = 88385) 113 ML/MIN/1.73 CALC BUN/CREAT (test code = 2235) 14 RATIO SODIUM (test code = 2231) 139 MEQ/L POTASSIUM (test code = 2228) 4.3 MEQ/L CHLORIDE (test code = 2215) 104 MEQ/L CARBON DIOXIDE (test code = 2206) 22 MEQ/L CALCIUM (test code = 2209) 9.1 MG/DL PROTEIN, TOTAL (test code = 2229) 7.4 G/DL ALBUMIN (test code = 2201) 4.8 G/DL CALC GLOBULIN (test code = 2240) 2.6 G/DL CALC A/G RATIO (test code = 2234) 1.8 RATIO BILIRUBIN, TOTAL (test code = 2207) 0.2 MG/DL ALKALINE PHOSPHATASE (test code = 2204) 80 U/L AST (test code = 2218) 18 U/L ALT (test code = 2219) 20 U/L Tashi BoothLIPID [id number] 00:00:00* Test Item Value Reference Range Interpretation Comme nts CHOLESTEROL (test code = 2210) 238 MG/DL TRIGLYCERIDES (test code = 2232) 124 MG/DL HDL CHOLESTEROL (test code = 2220) 63 MG/DL CALC LDL CHOL (test code = 2237) 150 MG/DL RISK RATIO LDL/HDL (test cod e = 2238) 2.38 RATIO Tashi BoothTSH, THIRD [id number] 00:00:00* Test Item Value Reference Range Interpretation Comme [facility] TSH, THIRD GENERATION (test code = 2821) 1.300 UIU/ML Tashi BoothVITAMIN D, 25 [id number] 00:00:00* Test Item Value Reference Range Interpretation Comme [facility] VITAMIN D, 25 OH (test code = 4958) 43 NG/ML Tashi BoothCBC W/AUTO [id number] 00:00:00* Test Item Value Reference Range Interpretation Comme nts WBC (test code = 1001) 4.1 K/UL RBC (test code = 1002) 4.04 M/UL HEMOGLOBIN (test code = 1003) 8.1 G/DL HEMATOCRIT (test code = 1004) 28.6 % MCV (test code = 1005) 70.8 fL MCH (test code = 1006) 20.0 PG MCHC (test code = 1007) 28.3 G/DL RDW (test code = 1038) 18.4 % NEUTROPHILS (test code = 1008) 59.3 % LYMPHOCYTES (test code = 1010) 28.4 % MONOCYTES (test code = 1011) 9.1 % EOSINOPHILS (test code = 1012) 2.0 % BASOPHILS (test code = 1013) 1.0 % IMMATURE GRANULOCYTES (test code = 1036) 0.2 % NUCLEATED RBCS (test code = 1065) 0.0 /100WBC'S PLATELET COUNT (test code = 1015) 310 K/UL ABSOLUTE NEUTROPHILS (test c ode = 1066) 2.40 K/UL ABSOLUTE LYMPHOCYTES (test c ode = 1067) 1.15 K/UL ABSOLUTE MONOCYTES (test cod e = 1068) 0.37 K/UL ABSOLUTE EOSINOPHILS (test c ode = 1040) 0.08 K/UL ABSOLUTE BASOPHILS (test cod e = 1069) 0.04 K/UL ABS IMMATURE GRANULOCYTES (t est code = 1020) 0.01 K/UL ABS NUCLEATED RBCS (test cod e = 86009) 0.00 K/UL COMMENTS (test code = 1016) (NOTE) Tashi BoothCOMPREHENSIVE METABOLIC [id number] 00:00:00* Test Item Value Reference Range Interpretation Comme nts GLUCOSE (test code = 2217) 89 MG/DL BUN (test code = 2208) 9 MG/DL CREATININE (test code = 2214) 0.64 MG/DL eGFR (2020 CKD-EPI) (test code = 24957) 113 ML/MIN/1.73 CALC BUN/CREAT (test code = 2235) 14 RATIO SODIUM (test code = 2231) 139 MEQ/L POTASSIUM (test code = 2228) 4.3 MEQ/L CHLORIDE (test code = 2215) 104 MEQ/L CARBON DIOXIDE (test code = 2206) 22 MEQ/L CALCIUM (test code = 2209) 9.1 MG/DL PROTEIN, TOTAL (test code = 2229) 7.4 G/DL ALBUMIN (test code = 2201) 4.8 G/DL CALC GLOBULIN (test code = 2240) 2.6 G/DL CALC A/G RATIO (test code = 2234) 1.8 RATIO BILIRUBIN, TOTAL (test code = 2207) 0.2 MG/DL ALKALINE PHOSPHATASE (test code = 2204) 80 U/L AST (test code = 2218) 18 U/L ALT (test code = 2219) 20 U/L Tashi BoothLIPID [id number] 00:00:00* Test Item Value Reference Range Interpretation Comme nts CHOLESTEROL (test code = 2210) 238 MG/DL TRIGLYCERIDES (test code = 2232) 124 MG/DL HDL CHOLESTEROL (test code = 2220) 63 MG/DL CALC LDL CHOL (test code = 2237) 150 MG/DL RISK RATIO LDL/HDL (test cod e = 2238) 2.38 RATIO Tashi BoothTSH, THIRD [id number] 00:00:00* Test Item Value Reference Range Interpretation Comme sreekanth TSH, THIRD GENERATION (test code = 2821) 1.300 UIU/ML Tashi BoothVITAMIN D, 25 [id number] 00:00:00* Test Item Value Reference Range Interpretation Comme sreekanth VITAMIN D, 25 [place] (test code = 4958) 43 NG/ML Tashi BoothCBC W/AUTO [id number] 00:00:00* Test Item Value Reference Range Interpretation Comme nts WBC (test code = 1001) 4.1 K/UL RBC (test code = 1002) 4.04 M/UL HEMOGLOBIN (test code = 1003) 8.1 G/DL HEMATOCRIT (test code = 1004) 28.6 % MCV (test code = 1005) 70.8 fL MCH (test code = 1006) 20.0 PG MCHC (test code = 1007) 28.3 G/DL RDW (test code = 1038) 18.4 % NEUTROPHILS (test code = 1008) 59.3 % LYMPHOCYTES (test code = 1010) 28.4 % MONOCYTES (test code = 1011) 9.1 % EOSINOPHILS (test code = 1012) 2.0 % BASOPHILS (test code = 1013) 1.0 % IMMATURE GRANULOCYTES (test code = 1036) 0.2 % NUCLEATED RBCS (test code = 1065) 0.0 /100WBC'S PLATELET COUNT (test code = 1015) 310 K/UL ABSOLUTE NEUTROPHILS (test c ode = 1066) 2.40 K/UL ABSOLUTE LYMPHOCYTES (test c ode = 1067) 1.15 K/UL ABSOLUTE MONOCYTES (test cod e = 1068) 0.37 K/UL ABSOLUTE EOSINOPHILS (test c ode = 1040) 0.08 K/UL ABSOLUTE BASOPHILS (test cod e = 1069) 0.04 K/UL ABS IMMATURE GRANULOCYTES (t est code = 1020) 0.01 K/UL ABS NUCLEATED RBCS (test cod e = 61723) 0.00 K/UL COMMENTS (test code = 1016) (NOTE) Tashi BoothCOMPREHENSIVE METABOLIC [id number] 00:00:00* Test Item Value Reference Range Interpretation Comme nts GLUCOSE (test code = 2217) 89 MG/DL BUN (test code = 2208) 9 MG/DL CREATININE (test code = 2214) 0.64 MG/DL eGFR (2020 CKD-EPI) (test code = 01890) 113 ML/MIN/1.73 CALC BUN/CREAT (test code = 2235) 14 RATIO SODIUM (test code = 2231) 139 MEQ/L POTASSIUM (test code = 2228) 4.3 MEQ/L CHLORIDE (test code = 2215) 104 MEQ/L CARBON DIOXIDE (test code = 2206) 22 MEQ/L CALCIUM (test code = 2209) 9.1 MG/DL PROTEIN, TOTAL (test code = 2229) 7.4 G/DL ALBUMIN (test code = 2201) 4.8 G/DL CALC GLOBULIN (test code = 2240) 2.6 G/DL CALC A/G RATIO (test code = 2234) 1.8 RATIO BILIRUBIN, TOTAL (test code = 2207) 0.2 MG/DL ALKALINE PHOSPHATASE (test code = 2204) 80 U/L AST (test code = 2218) 18 U/L ALT (test code = 2219) 20 U/L Tashi BoothLIPID [id number] 00:00:00* Test Item Value Reference Range Interpretation Comme nts CHOLESTEROL (test code = 2210) 238 MG/DL TRIGLYCERIDES (test code = 2232) 124 MG/DL HDL CHOLESTEROL (test code = 2220) 63 MG/DL CALC LDL CHOL (test code = 2237) 150 MG/DL RISK RATIO LDL/HDL (test cod e = 2238) 2.38 RATIO Tashi BoothTSH, THIRD [id number] 00:00:00* Test Item Value Reference Range Interpretation Comme nts TSH, THIRD GENERATION (test code = 2821) 1.300 UIU/ML Tashi Marques LeobardoVITAMIN D, 25 [id number] 00:00:00* Test Item Value Reference Range Interpretation Comme nts VITAMIN D, 25 [place] (test code = 4958) 43 NG/ML Tashi BoothCBC W/AUTO [id number] 00:00:00* Test Item Value Reference Range Interpretation Comme nts WBC (test code = 1001) 4.1 K/UL RBC (test code = 1002) 4.04 M/UL HEMOGLOBIN (test code = 1003) 8.1 G/DL HEMATOCRIT (test code = 1004) 28.6 % MCV (test code = 1005) 70.8 fL MCH (test code = 1006) 20.0 PG MCHC (test code = 1007) 28.3 G/DL RDW (test code = 1038) 18.4 % NEUTROPHILS (test code = 1008) 59.3 % LYMPHOCYTES (test code = 1010) 28.4 % MONOCYTES (test code = 1011) 9.1 % EOSINOPHILS (test code = 1012) 2.0 % BASOPHILS (test code = 1013) 1.0 % IMMATURE GRANULOCYTES (test code = 1036) 0.2 % NUCLEATED RBCS (test code = 1065) 0.0 /100WBC'S PLATELET COUNT (test code = 1015) 310 K/UL ABSOLUTE NEUTROPHILS (test c ode = 1066) 2.40 K/UL ABSOLUTE LYMPHOCYTES (test c ode = 1067) 1.15 K/UL ABSOLUTE MONOCYTES (test cod e = 1068) 0.37 K/UL ABSOLUTE EOSINOPHILS (test c ode = 1040) 0.08 K/UL ABSOLUTE BASOPHILS (test cod e = 1069) 0.04 K/UL ABS IMMATURE GRANULOCYTES (t est code = 1020) 0.01 K/UL ABS NUCLEATED RBCS (test cod e = 99656) 0.00 K/UL COMMENTS (test code = 1016) (NOTE) Tashi BoothCOMPREHENSIVE METABOLIC [id number] 00:00:00* Test Item Value Reference Range Interpretation Comme nts GLUCOSE (test code = 2217) 89 MG/DL BUN (test code = 2208) 9 MG/DL CREATININE (test code = 2214) 0.64 MG/DL eGFR (2020 CKD-EPI) (test code = 11295) 113 ML/MIN/1.73 CALC BUN/CREAT (test code = 2235) 14 RATIO SODIUM (test code = 2231) 139 MEQ/L POTASSIUM (test code = 2228) 4.3 MEQ/L CHLORIDE (test code = 2215) 104 MEQ/L CARBON DIOXIDE (test code = 2206) 22 MEQ/L CALCIUM (test code = 2209) 9.1 MG/DL PROTEIN, TOTAL (test code = 2229) 7.4 G/DL ALBUMIN (test code = 2201) 4.8 G/DL CALC GLOBULIN (test code = 2240) 2.6 G/DL CALC A/G RATIO (test code = 2234) 1.8 RATIO BILIRUBIN, TOTAL (test code = 2207) 0.2 MG/DL ALKALINE PHOSPHATASE (test code = 220) 80 U/L AST (test code = 2218) 18 U/L ALT (test code = 2219) 20 U/L Tashi BoothLIPID [id number] 00:00:00* Test Item Value Reference Range Interpretation Comme nts CHOLESTEROL (test code = 2210) 238 MG/DL TRIGLYCERIDES (test code = 2232) 124 MG/DL HDL CHOLESTEROL (test code = 2220) 63 MG/DL CALC LDL CHOL (test code = 2237) 150 MG/DL RISK RATIO LDL/HDL (test cod e = 2238) 2.38 RATIO Tashi BoothTSH, THIRD [id number] 00:00:00* Test Item Value Reference Range Interpretation Comme [facility] TSH, THIRD GENERATION (test code = 2821) 1.300 UIU/ML Tashi BoothVITAMIN D, 25 [id number] 00:00:00* Test Item Value Reference Range Interpretation Comme [facility] VITAMIN D, 25 [place] (test code = 4958) 43 NG/ML Tashi BoothCBC W/AUTO [id number] 00:00:00* Test Item Value Reference Range Interpretation Comme nts WBC (test code = 1001) 4.1 K/UL RBC (test code = 1002) 4.04 M/UL HEMOGLOBIN (test code = 1003) 8.1 G/DL HEMATOCRIT (test code = 1004) 28.6 % MCV (test code = 1005) 70.8 fL MCH (test code = 1006) 20.0 PG MCHC (test code = 1007) 28.3 G/DL RDW (test code = 1038) 18.4 % NEUTROPHILS (test code = 1008) 59.3 % LYMPHOCYTES (test code = 1010) 28.4 % MONOCYTES (test code = 1011) 9.1 % EOSINOPHILS (test code = 1012) 2.0 % BASOPHILS (test code = 1013) 1.0 % IMMATURE GRANULOCYTES (test code = 1036) 0.2 % NUCLEATED RBCS (test code = 1065) 0.0 /100WBC'S PLATELET COUNT (test code = 1015) 310 K/UL ABSOLUTE NEUTROPHILS (test c ode = 1066) 2.40 K/UL ABSOLUTE LYMPHOCYTES (test c ode = 1067) 1.15 K/UL ABSOLUTE MONOCYTES (test cod e = 1068) 0.37 K/UL ABSOLUTE EOSINOPHILS (test c ode = 1040) 0.08 K/UL ABSOLUTE BASOPHILS (test cod e = 1069) 0.04 K/UL ABS IMMATURE GRANULOCYTES (t est code = 1020) 0.01 K/UL ABS NUCLEATED RBCS (test cod e = 42596) 0.00 K/UL COMMENTS (test code = 1016) (NOTE) Tashi BoothCOMPREHENSIVE METABOLIC [id number] 00:00:00* Test Item Value Reference Range Interpretation Comme nts GLUCOSE (test code = 2217) 89 MG/DL BUN (test code = 2208) 9 MG/DL CREATININE (test code = 2214) 0.64 MG/DL eGFR (2020 CKD-EPI) (test code = 27606) 113 ML/MIN/1.73 CALC BUN/CREAT (test code = 2235) 14 RATIO SODIUM (test code = 2231) 139 MEQ/L POTASSIUM (test code = 2228) 4.3 MEQ/L CHLORIDE (test code = 2215) 104 MEQ/L CARBON DIOXIDE (test code = 2206) 22 MEQ/L CALCIUM (test code = 2209) 9.1 MG/DL PROTEIN, TOTAL (test code = 2229) 7.4 G/DL ALBUMIN (test code = 2201) 4.8 G/DL CALC GLOBULIN (test code = 2240) 2.6 G/DL CALC A/G RATIO (test code = 2234) 1.8 RATIO BILIRUBIN, TOTAL (test code = 2207) 0.2 MG/DL ALKALINE PHOSPHATASE (test code = 2204) 80 U/L AST (test code = 2218) 18 U/L ALT (test code = 2219) 20 U/L Tashi Rivero [id number] 09:49:49SPECIMEN NUMBER: [id number] CULTURE, URINE SPECIMEN NUMBER: [id number] SPECIMEN COMMENT: URINE SOURCE: URINE REPORT STATUS: FINAL FINAL REPORT: 07/28/2023 <10,000 CFU/ML UROGENITAL DAHIANA PRESENT NO COMMON PATHOGENS UNLESS OTHERWISE INDICATED, ALL TESTING PERFORMED AT [facility] [address] [place] [address] DIVISION ORDER ANALYST: KIANNA YING M.D. CLIA NUMBER [id number] [place]. [id number], [id number] 00:00:00* Test Item Value Reference Range Interpretation Comme nts CULTURE, URINE (test code = 72878) SPECIMEN NUMBER: [id number] Tashi Rivreo, [id number] 00:00:00* Test Item Value Reference Range Interpretation Comme nts CULTURE, URINE (test code = 43723) SPECIMEN NUMBER: [id number] Tashi Rivero, [id number] 00:00:00* Test Item Value Reference Range Interpretation Comme nts CULTURE, URINE (test code = 13052) SPECIMEN NUMBER: [id number] Tashi Rivero, [id number] 00:00:00* Test Item Value Reference Range Interpretation Comme nts CULTURE, URINE (test code = 44943) SPECIMEN NUMBER: [id number] Tashi Rivero, [id number] 00:00:00* Test Item Value Reference Range Interpretation Comme nts CULTURE, URINE (test code = 53966) SPECIMEN NUMBER: [id number] Tashi Rivero, [id number] 00:00:00* Test Item Value Reference Range Interpretation Comme nts CULTURE, URINE (test code = 89435) SPECIMEN NUMBER: [id number] Tashi Rivero, [id number] 00:00:00* Test Item Value Reference Range Interpretation Comme nts CULTURE, URINE (test code = 04530) SPECIMEN NUMBER: [id number] Tashi Rivero, [id number] 00:00:00* Test Item Value Reference Range Interpretation Comme nts CULTURE, URINE (test code = 81620) SPECIMEN NUMBER: [id number] Tashi Rivero [id number] 00:00:00* Test Item Value Reference Range Interpretation Comme nts CULTURE, URINE (test code = 03261) SPECIMEN NUMBER: [id number] NASREEN Smith2024-01-18 10:27:00SPECIMEN NUMBER: [id number] CULTURE, URINE SPECIMEN NUMBER: [id number] SPECIMEN COMMENT: URINE SOURCE: URINE REPORT STATUS: FINAL FINAL REPORT: 06/27/2023 <10,000 CFU/ML UROGENITAL DAHIANA PRESENT NO COMMON PATHOGENS UNLESS OTHERWISE INDICATED, ALL TESTING PERFORMED AT [facility] [address] [place] [address] DIVISION ORDER ANALYST: KIANNA YING M.D. CLIA NUMBER [id number] [facility] [place]. [id number], [id number] 00:00:00* Test Item Value Reference Range Interpretation Comme nts CULTURE, URINE (test code = 15583) SPECIMEN NUMBER: [id number] Tashi Rivero [id number] 00:00:00* Test Item Value Reference Range Interpretation Comme nts CULTURE, URINE (test code = 20430) SPECIMEN NUMBER: [id number] Tashi Rivero [id number] 00:00:00* Test Item Value Reference Range Interpretation Comme nts CULTURE, URINE (test code = 24041) SPECIMEN NUMBER: [id number] Tashi Rivero [id number] 00:00:00* Test Item Value Reference Range Interpretation Comme nts CULTURE, URINE (test code = 75626) SPECIMEN NUMBER: [id number] Tashi Rivero [id number] 00:00:00* Test Item Value Reference Range Interpretation Comme nts CULTURE, URINE (test code = 75294) SPECIMEN NUMBER: [id number] Tashi Rivero, [id number] 00:00:00* Test Item Value Reference Range Interpretation Comme nts CULTURE, URINE (test code = 79141) SPECIMEN NUMBER: [id number] Tashi Rivero [id number] 00:00:00* Test Item Value Reference Range Interpretation Comme nts CULTURE, URINE (test code = 66777) SPECIMEN NUMBER: [id number] Tashi Rivero [id number] 00:00:00* Test Item Value Reference Range Interpretation Comme nts CULTURE, URINE (test code = 06197) SPECIMEN NUMBER: [id number] NASREEN Smith2024-01-18 00:00:00* Test Item Value Reference Range Interpretation Comme nts CULTURE, URINE (test code = 05568) SPECIMEN NUMBER: [id number] Tashi Rivero [id number] 10:56:45SPECIMEN NUMBER: [id number] CULTURE, URINE SPECIMEN NUMBER: [id number] SOURCE: URINE REPORT STATUS: FINAL FINAL REPORT: 05/15/2023 NO GROWTH AFTER 36 HOURS INCUBATION UNLESS OTHERWISE INDICATED, ALL TESTING PERFORMED AT [facility] [address] [place] [address] DIVISION ORDER ANALYST: KIANNA YING M.D. [place] NUMBER [id number] [facility] [place]. [id number], [id number] 00:00:00* Test Item Value Reference Range Interpretation Comme nts CULTURE, URINE (test code = 29206) SPECIMEN NUMBER: [id number] Tashi Rivero [id number] 00:00:00* Test Item Value Reference Range Interpretation Comme nts CULTURE, URINE (test code = 56771) SPECIMEN NUMBER: [id number] Tashi Rivero [id number] 00:00:00* Test Item Value Reference Range Interpretation Comme nts CULTURE, URINE (test code = 96477) SPECIMEN NUMBER: [id number] Tashi Rivero, [id number] 00:00:00* Test Item Value Reference Range Interpretation Comme nts CULTURE, URINE (test code = 62528) SPECIMEN NUMBER: [id number] Tashi AustinLTEDGAR, [id number] 00:00:00* Test Item Value Reference Range Interpretation Comme nts CULTURE, URINE (test code = 39940) SPECIMEN NUMBER: [id number] Tashi Rivero, [id number] 00:00:00* Test Item Value Reference Range Interpretation Comme nts CULTURE, URINE (test code = 09374) SPECIMEN NUMBER: [id number] Tashi Rivero [id number] 00:00:00* Test Item Value Reference Range Interpretation Comme nts CULTURE, URINE (test code = 62122) SPECIMEN NUMBER: [id number] Tashi Rivero [id number] 00:00:00* Test Item Value Reference Range Interpretation Comme nts CULTURE, URINE (test code = 31892) SPECIMEN NUMBER: [id number] Tashi Rivero [id number] 00:00:00* Test Item Value Reference Range Interpretation Comme nts CULTURE, URINE (test code = 23524) SPECIMEN NUMBER: [id number] NASREEN Smith2023-11-18 05:47:43SPECIMEN NUMBER: [id number] CULTURE, URINE SPECIMEN NUMBER: [id number] SPECIMEN COMMENT: URINE SOURCE: URINE REPORT STATUS: FINAL FINAL REPORT: 04/27/2023 NO GROWTH AFTER 36 HOURS INCUBATION UNLESS OTHERWISE INDICATED, ALL TESTING PERFORMED AT [facility] [address] [place] [address] DIVISION ORDER ANALYST: KIANNA YING M.D. CLIA NUMBER [id number] [facility] [place].[id number] CULTURE, [id number] 00:00:00* Test Item Value Reference Range Interpretation Comme nts CULTURE, URINE (test code = 17745) SPECIMEN NUMBER: [id number] Tashi Rivero [id number] 00:00:00* Test Item Value Reference Range Interpretation Comme nts CULTURE, URINE (test code = 33970) SPECIMEN NUMBER: [id number] Tashi Rivero, [id number] 00:00:00* Test Item Value Reference Range Interpretation Comme nts CULTURE, URINE (test code = 53192) SPECIMEN NUMBER: [id number] Tashi Rivero, [id number] 00:00:00* Test Item Value Reference Range Interpretation Comme nts CULTURE, URINE (test code = 66185) SPECIMEN NUMBER: [id number] Tashi Rivero, [id number] 00:00:00* Test Item Value Reference Range Interpretation Comme nts CULTURE, URINE (test code = 34053) SPECIMEN NUMBER: [id number] Tashi AustinLTURE, [id number] 00:00:00* Test Item Value Reference Range Interpretation Comme nts CULTURE, URINE (test code = 39088) SPECIMEN NUMBER: [id number] Tashi AustinLTURE, [id number] 00:00:00* Test Item Value Reference Range Interpretation Comme nts CULTURE, URINE (test code = 03505) SPECIMEN NUMBER: [id number] Tashi AustinLTURE, [id number] 00:00:00* Test Item Value Reference Range Interpretation Comme nts CULTURE, URINE (test code = 86008) SPECIMEN NUMBER: [id number] Tashi Rivero, [id number] 00:00:00* Test Item Value Reference Range Interpretation Comme nts CULTURE, URINE (test code = 87198) SPECIMEN NUMBER: [id number] Tashi Ponce (ANTI-NUCLEAR AB) WITH REFLEX [id number] 23:45:49* Test Item Value Reference Range Interpretation Comme nts ANTI-NUCLEAR ANTIBODIES (test code = 3506) NEGATIVE NEGATIVE Methodology is I ndirect Immunofluorescent Assay (IFA) with a titering system using Cap4075 cells (Hep2 cells transfected with SS-A/Ro). DAYSI PATTERN (REPORTED TITER) (test code = 31490) SEE BELOW HOMOGENEOUS (test code = 76260) NEGATIVE TITER NEGATIVE SPECKLED (test code = 583080) NEGATIVE TITER NEGATIVE DENSE FINE SPECKLED (test code = 60948) NEGATIVE TITER NEGATIVE CENTROMERE (test code = 569176) NEGATIVE TITER NEGATIVE COARSE SPECKLED (test code = 668169) NEGATIVE TITER NEGATIVE DISCRETE NUCLEAR DOTS (test code = 497846) NEGATIVE TITER NEGATIVE NUCLEOLAR (test code = 565781) NEGATIVE TITER NEGATIVE NUCLEAR MEMBRANE (test code = 517019) NEGATIVE TITER NEGATIVE CYTO. RETICULAR (YEYO) (test code = 693556) NEGATIVE NEGATIVE COMMENTS (test code = 792967) NONE METHOD (test code = 20656) (NOTE) TESTING PERFORME D BY [employer] IFA PLATFORM.THE METHOD INCLUDES A SCREEN THRESHOLD OF 1:80, DIGITIZED AND COMPUTER ALGORITHM-ASSISTED INTERPRETATION OF TITERS AND DIGITAL PATTERNS, AND HEp-2 CELL LINE SUBSTRATE. ADDITIONAL UNUSUAL PATTERNS WILL BE GIVEN COMMENTS.FOR MORE INFORMATION, SEE /DAYSI-Tami bishnug C-REACTIVE [id number] 06:39:38* Test Item Value Reference Range Interpretation Comme [facility] C-REACTIVE PROTEIN (test cod e = 3513) <0.3 MG/DL <0.5 RHEUMATOID FACTOR, [id number] 06:39:38* Test Item Value Reference Range Interpretation Comme [facility] RHEUMATOID FACTOR, QUANT (test code = 3502) 13 IU/ML <14 UNLESS OTHERWISE INDICATED, ALL TESTING PERFORMED AT [facility] [address] [place] [address] DIVISION ORDER ANALYST: KIANNA YING M.D. CLIA NUMBER [id number] [facility] [place]. [id number] TSH, THIRD [id number] 05:18:34* Test Item Value Reference Range Interpretation Comme [facility] TSH, THIRD GENERATION (test code = 2821) 1.310 UIU/ML 0.400-4.100 VITAMIN D, 25 [id number] 05:17:57* Test Item Value Reference Range Interpretation Comme [facility] VITAMIN D, 25 [place] (test code = 4958) 19 NG/ML SEE BELOW L EFFECTIVE 02/2023, PLEASE NOTE NEW METHODOLOGY IS ELECTROCHEMILUMINESCENCE BINDING ASSAY. NOTE: 25-HYDROXYVITAMIN D ASSAY INCLUDES 25-HYDROXYVITAMIN D2 AND D3. INTERPRETIVE RANGES PEDIATRIC (<17 YEARS) . . . . . . . . . . . NG/ML 20-100ADULT: INSUFFICIENT . . . . . . . . . . . . . . NG/ML <20 SUBOPTIMAL . . . . . . . . . . . . . . . NG/ML 20-29 OPTIMAL . . . . . . . . . . . . . . . . . NG/ML 30-100 CBC W/AUTO DIFF WITH [id number] 04:02:12* Test Item Value Reference Range Interpretation Comme [facility] WBC (test code = 1001) 6.8 K/UL 3.5-11.0 RBC (test code = 1002) 4.02 M/UL 3.80-5.40 HEMOGLOBIN (test code = 1003) 9.9 G/DL 11.5-15.5 L HEMATOCRIT (test code = 1004) 31.2 % 34.0-45.0 L MCV (test code = 1005) 77.6 fL 80.0-99.0 L MCH (test code = 1006) 24.6 PG 25.0-33.0 L MCHC (test code = 1007) 31.7 G/DL 31.0-36.0 RDW (test code = 1038) 16.4 % 11.5-15.0 H NEUTROPHILS (test code = 1008) 69.1 % LYMPHOCYTES (test code = 1010) 20.4 % MONOCYTES (test code = 1011) 8.4 % EOSINOPHILS (test code = 1012) 1.3 % BASOPHILS (test code = 1013) 0.7 % IMMATURE GRANULOCYTES (test code = 1036) 0.1 % NUCLEATED RBCS (test code = 1065) 0.0 /100 WBC'S See_Comment [Automated messa ge] The system which generated this result transmitted reference range: 0.0. The reference range was not used to interpret this result as normal/abnormal. PLATELET COUNT (test code = 1015) 399 K/UL 130-400 ABSOLUTE NEUTROPHILS (test code = 1066) 4.71 K/UL 1.50-7.50 ABSOLUTE LYMPHOCYTES (test code = 1067) 1.39 K/UL 1.00-4.00 ABSOLUTE MONOCYTES (test code = 1068) 0.57 K/UL 0.20-1.00 ABSOLUTE EOSINOPHILS (test code = 1040) 0.09 K/UL 0.00-0.50 ABSOLUTE BASOPHILS (test code = 1069) 0.05 K/UL 0.00-0.20 ABS IMMATURE GRANULOCYTES (test code = 1020) 0.01 K/UL 0.00-0.10 ABS NUCLEATED RBCS (test code = 24242) 0.00 K/UL 0.00-0.11 HEMOGLOBIN [id number] 03:51:19* Test Item Value Reference Range Interpretation Comme [facility] HEMOGLOBIN A1c (test code = 89023) 5.1 % 4.2-5.6 VITAMIN D, 25 [id number] 00:00:00* Test Item Value Reference Range Interpretation Comme [facility] VITAMIN D, 25 OH (test code = 4958) 19 NG/ML Tashi Marques AustinC-REACTIVE [id number] 00:00:00* Test Item Value Reference Range Interpretation Comme nts C-REACTIVE PROTEIN (test cod e = 3513) <0.3 MG/DL Tashi Ponce (ANTI-NUCLEAR AB) WITH REFLEX [id number] 00:00:00* Test Item Value Reference Range Interpretation Comme nts ANTI-NUCLEAR ANTIBODIES (tami t code = 3506) NEGATIVE DAYSI PATTERN (REPORTED TITER) (test code = 12996) SEE BELOW HOMOGENEOUS (test code = 05007) NEGATIVE TITER SPECKLED (test code = 992054) NEGATIVE TITER DENSE FINE SPECKLED (test co de = 82334) NEGATIVE TITER CENTROMERE (test code = 254176) NEGATIVE TITER COARSE SPECKLED (test code = 639740) NEGATIVE TITER DISCRETE NUCLEAR DOTS (test code = 329747) NEGATIVE TITER NUCLEOLAR (test code = 678520) NEGATIVE TITER NUCLEAR MEMBRANE (test code = 993506) NEGATIVE TITER CYTO. RETICULAR (YEYO) (test code = 248442) NEGATIVE COMMENTS (test code = 516382) NONE METHOD (test code = 28098) (NOTE) Tashi BoothRHEUMATOID FACTOR, [id number] 00:00:00* Test Item Value Reference Range Interpretation Comme nts RHEUMATOID FACTOR, QUANT (te st code = 3502) 13 IU/ML Tashi BoothCBC W/AUTO [id number] 00:00:00* Test Item Value Reference Range Interpretation Comme nts WBC (test code = 1001) 6.8 K/UL RBC (test code = 1002) 4.02 M/UL HEMOGLOBIN (test code = 1003) 9.9 G/DL HEMATOCRIT (test code = 1004) 31.2 % MCV (test code = 1005) 77.6 fL MCH (test code = 1006) 24.6 PG MCHC (test code = 1007) 31.7 G/DL RDW (test code = 1038) 16.4 % NEUTROPHILS (test code = 1008) 69.1 % LYMPHOCYTES (test code = 1010) 20.4 % MONOCYTES (test code = 1011) 8.4 % EOSINOPHILS (test code = 1012) 1.3 % BASOPHILS (test code = 1013) 0.7 % IMMATURE GRANULOCYTES (test code = 1036) 0.1 % NUCLEATED RBCS (test code = 1065) 0.0 /100WBC'S PLATELET COUNT (test code = 1015) 399 K/UL ABSOLUTE NEUTROPHILS (test c ode = 1066) 4.71 K/UL ABSOLUTE LYMPHOCYTES (test c ode = 1067) 1.39 K/UL ABSOLUTE MONOCYTES (test cod e = 1068) 0.57 K/UL ABSOLUTE EOSINOPHILS (test c ode = 1040) 0.09 K/UL ABSOLUTE BASOPHILS (test cod e = 1069) 0.05 K/UL ABS IMMATURE GRANULOCYTES (t est code = 1020) 0.01 K/UL ABS NUCLEATED RBCS (test cod e = 37426) 0.00 K/UL Tashi OhH, THIRD [id number] 00:00:00* Test Item Value Reference Range Interpretation Comme sreekanth TSH, THIRD GENERATION (test code = 2821) 1.310 UIU/ML Tashi BoothHEMOGLOBIN [id number] 00:00:00* Test Item Value Reference Range Interpretation Comme sreekanth HEMOGLOBIN A1c (test code = 76275) 5.1 % Tashi BoothVITAMIN D, 25 [id number] 00:00:00* Test Item Value Reference Range Interpretation Comme rseekanth VITAMIN D, 25 OH (test code = 4958) 19 NG/ML Tashi BoothC-REACTIVE [id number] 00:00:00* Test Item Value Reference Range Interpretation Comme sreekanth C-REACTIVE PROTEIN (test cod e = 3513) <0.3 MG/DL Tashi Ponce (ANTI-NUCLEAR AB) WITH REFLEX [id number] 00:00:00* Test Item Value Reference Range Interpretation Comme sreekanth ANTI-NUCLEAR ANTIBODIES (tami t code = 3506) NEGATIVE DAYSI PATTERN (REPORTED TITER) (test code = 83195) SEE BELOW HOMOGENEOUS (test code = 39485) NEGATIVE TITER SPECKLED (test code = 883390) NEGATIVE TITER DENSE FINE SPECKLED (test co de = 28154) NEGATIVE TITER CENTROMERE (test code = 521988) NEGATIVE TITER COARSE SPECKLED (test code = 497253) NEGATIVE TITER DISCRETE NUCLEAR DOTS (test code = 333236) NEGATIVE TITER NUCLEOLAR (test code = 855354) NEGATIVE TITER NUCLEAR MEMBRANE (test code = 927033) NEGATIVE TITER CYTO. RETICULAR (YEYO) (test code = 473196) NEGATIVE COMMENTS (test code = 889896) NONE METHOD (test code = 56834) (NOTE) Tashi BoothRHEUMATOID FACTOR, [id number] 00:00:00* Test Item Value Reference Range Interpretation Comme nts RHEUMATOID FACTOR, QUANT (te st code = 3502) 13 IU/ML Tashi BoothCBC W/AUTO [id number] 00:00:00* Test Item Value Reference Range Interpretation Comme nts WBC (test code = 1001) 6.8 K/UL RBC (test code = 1002) 4.02 M/UL HEMOGLOBIN (test code = 1003) 9.9 G/DL HEMATOCRIT (test code = 1004) 31.2 % MCV (test code = 1005) 77.6 fL MCH (test code = 1006) 24.6 PG MCHC (test code = 1007) 31.7 G/DL RDW (test code = 1038) 16.4 % NEUTROPHILS (test code = 1008) 69.1 % LYMPHOCYTES (test code = 1010) 20.4 % MONOCYTES (test code = 1011) 8.4 % EOSINOPHILS (test code = 1012) 1.3 % BASOPHILS (test code = 1013) 0.7 % IMMATURE GRANULOCYTES (test code = 1036) 0.1 % NUCLEATED RBCS (test code = 1065) 0.0 /100WBC'S PLATELET COUNT (test code = 1015) 399 K/UL ABSOLUTE NEUTROPHILS (test c ode = 1066) 4.71 K/UL ABSOLUTE LYMPHOCYTES (test c ode = 1067) 1.39 K/UL ABSOLUTE MONOCYTES (test cod e = 1068) 0.57 K/UL ABSOLUTE EOSINOPHILS (test c ode = 1040) 0.09 K/UL ABSOLUTE BASOPHILS (test cod e = 1069) 0.05 K/UL ABS IMMATURE GRANULOCYTES (t est code = 1020) 0.01 K/UL ABS NUCLEATED RBCS (test cod e = 83773) 0.00 K/UL Tashi BoothTSH, THIRD [id number] 00:00:00* Test Item Value Reference Range Interpretation Comme nts TSH, THIRD GENERATION (test code = 2821) 1.310 UIU/ML Tashi BoothHEMOGLOBIN [id number] 00:00:00* Test Item Value Reference Range Interpretation Comme nts HEMOGLOBIN A1c (test code = 14908) 5.1 % Tashi BoothVITAMIN D, 25 [id number] 00:00:00* Test Item Value Reference Range Interpretation Comme nts VITAMIN D, 25 OH (test code = 4958) 19 NG/ML Tashi BoothC-REACTIVE [id number] 00:00:00* Test Item Value Reference Range Interpretation Comme nts C-REACTIVE PROTEIN (test cod e = 3513) <0.3 MG/DL Tashi BoothANA (ANTI-NUCLEAR AB) WITH REFLEX [id number] 00:00:00* Test Item Value Reference Range Interpretation Comme nts ANTI-NUCLEAR ANTIBODIES (tami t code = 3506) NEGATIVE DAYSI PATTERN (REPORTED TITER) (test code = 93423) SEE BELOW HOMOGENEOUS (test code = 33745) NEGATIVE TITER SPECKLED (test code = 913933) NEGATIVE TITER DENSE FINE SPECKLED (test co de = 05696) NEGATIVE TITER CENTROMERE (test code = 398486) NEGATIVE TITER COARSE SPECKLED (test code = 165564) NEGATIVE TITER DISCRETE NUCLEAR DOTS (test code = 343541) NEGATIVE TITER NUCLEOLAR (test code = 916510) NEGATIVE TITER NUCLEAR MEMBRANE (test code = 107528) NEGATIVE TITER CYTO. RETICULAR (YEYO) (test code = 322796) NEGATIVE COMMENTS (test code = 891087) NONE METHOD (test code = 65044) (NOTE) Tashi BoothRHEUMATOID FACTOR, [id number] 00:00:00* Test Item Value Reference Range Interpretation Comme nts RHEUMATOID FACTOR, QUANT (te st code = 3502) 13 IU/ML Tashi BoothCBC W/AUTO [id number] 00:00:00* Test Item Value Reference Range Interpretation Comme nts WBC (test code = 1001) 6.8 K/UL RBC (test code = 1002) 4.02 M/UL HEMOGLOBIN (test code = 1003) 9.9 G/DL HEMATOCRIT (test code = 1004) 31.2 % MCV (test code = 1005) 77.6 fL MCH (test code = 1006) 24.6 PG MCHC (test code = 1007) 31.7 G/DL RDW (test code = 1038) 16.4 % NEUTROPHILS (test code = 1008) 69.1 % LYMPHOCYTES (test code = 1010) 20.4 % MONOCYTES (test code = 1011) 8.4 % EOSINOPHILS (test code = 1012) 1.3 % BASOPHILS (test code = 1013) 0.7 % IMMATURE GRANULOCYTES (test code = 1036) 0.1 % NUCLEATED RBCS (test code = 1065) 0.0 /100WBC'S PLATELET COUNT (test code = 1015) 399 K/UL ABSOLUTE NEUTROPHILS (test c ode = 1066) 4.71 K/UL ABSOLUTE LYMPHOCYTES (test c ode = 1067) 1.39 K/UL ABSOLUTE MONOCYTES (test cod e = 1068) 0.57 K/UL ABSOLUTE EOSINOPHILS (test c ode = 1040) 0.09 K/UL ABSOLUTE BASOPHILS (test cod e = 1069) 0.05 K/UL ABS IMMATURE GRANULOCYTES (t est code = 1020) 0.01 K/UL ABS NUCLEATED RBCS (test cod e = 45579) 0.00 K/UL Tashi BoothTSH, THIRD [id number] 00:00:00* Test Item Value Reference Range Interpretation Comme sreekanth TSH, THIRD GENERATION (test code = 2821) 1.310 UIU/ML Tashi BoothHEMOGLOBIN [id number] 00:00:00* Test Item Value Reference Range Interpretation Comme sreekanth HEMOGLOBIN A1c (test code = 18536) 5.1 % Tashi BoothVITAMIN D, 25 [id number] 00:00:00* Test Item Value Reference Range Interpretation Comme sreekanth VITAMIN D, 25 OH (test code = 4958) 19 NG/ML Tashi BoothC-REACTIVE [id number] 00:00:00* Test Item Value Reference Range Interpretation Comme sreekanth C-REACTIVE PROTEIN (test cod e = 3513) <0.3 MG/DL Tashi BoothDAYSI (ANTI-NUCLEAR AB) WITH REFLEX [id number] 00:00:00* Test Item Value Reference Range Interpretation Comme nts ANTI-NUCLEAR ANTIBODIES (tami t code = 3506) NEGATIVE DAYSI PATTERN (REPORTED TITER) (test code = 94834) SEE BELOW HOMOGENEOUS (test code = 39498) NEGATIVE TITER SPECKLED (test code = 156678) NEGATIVE TITER DENSE FINE SPECKLED (test co de = 10355) NEGATIVE TITER CENTROMERE (test code = 151122) NEGATIVE TITER COARSE SPECKLED (test code = 897604) NEGATIVE TITER DISCRETE NUCLEAR DOTS (test code = 058369) NEGATIVE TITER NUCLEOLAR (test code = 833382) NEGATIVE TITER NUCLEAR MEMBRANE (test code = 525298) NEGATIVE TITER CYTO. RETICULAR (YEYO) (test code = 728731) NEGATIVE COMMENTS (test code = 150877) NONE METHOD (test code = 45801) (NOTE) Tashi BoothRHEUMATOID FACTOR, [id number] 00:00:00* Test Item Value Reference Range Interpretation Comme nts RHEUMATOID FACTOR, QUANT (te st code = 3502) 13 IU/ML Tashi BoothCBC W/AUTO [id number] 00:00:00* Test Item Value Reference Range Interpretation Comme nts WBC (test code = 1001) 6.8 K/UL RBC (test code = 1002) 4.02 M/UL HEMOGLOBIN (test code = 1003) 9.9 G/DL HEMATOCRIT (test code = 1004) 31.2 % MCV (test code = 1005) 77.6 fL MCH (test code = 1006) 24.6 PG MCHC (test code = 1007) 31.7 G/DL RDW (test code = 1038) 16.4 % NEUTROPHILS (test code = 1008) 69.1 % LYMPHOCYTES (test code = 1010) 20.4 % MONOCYTES (test code = 1011) 8.4 % EOSINOPHILS (test code = 1012) 1.3 % BASOPHILS (test code = 1013) 0.7 % IMMATURE GRANULOCYTES (test code = 1036) 0.1 % NUCLEATED RBCS (test code = 1065) 0.0 /100WBC'S PLATELET COUNT (test code = 1015) 399 K/UL ABSOLUTE NEUTROPHILS (test c ode = 1066) 4.71 K/UL ABSOLUTE LYMPHOCYTES (test c ode = 1067) 1.39 K/UL ABSOLUTE MONOCYTES (test cod e = 1068) 0.57 K/UL ABSOLUTE EOSINOPHILS (test c ode = 1040) 0.09 K/UL ABSOLUTE BASOPHILS (test cod e = 1069) 0.05 K/UL ABS IMMATURE GRANULOCYTES (t est code = 1020) 0.01 K/UL ABS NUCLEATED RBCS (test cod e = 58674) 0.00 K/UL Tashi OhH, THIRD [id number] 00:00:00* Test Item Value Reference Range Interpretation Comme nts TSH, THIRD GENERATION (test code = 2821) 1.310 UIU/ML Tashi BoothHEMOGLOBIN [id number] 00:00:00* Test Item Value Reference Range Interpretation Comme nts HEMOGLOBIN A1c (test code = 26303) 5.1 % Tashi BoothVITAMIN D, 25 [id number] 00:00:00* Test Item Value Reference Range Interpretation Comme nts VITAMIN D, 25 OH (test code = 4958) 19 NG/ML Tashi BoothC-REACTIVE [id number] 00:00:00* Test Item Value Reference Range Interpretation Comme nts C-REACTIVE PROTEIN (test cod e = 3513) <0.3 MG/DL Tashi BoothANA (ANTI-NUCLEAR AB) WITH REFLEX [id number] 00:00:00* Test Item Value Reference Range Interpretation Comme nts ANTI-NUCLEAR ANTIBODIES (tami t code = 3506) NEGATIVE DAYSI PATTERN (REPORTED TITER) (test code = 71893) SEE BELOW HOMOGENEOUS (test code = 56070) NEGATIVE TITER SPECKLED (test code = 933483) NEGATIVE TITER DENSE FINE SPECKLED (test co de = 44528) NEGATIVE TITER CENTROMERE (test code = 568501) NEGATIVE TITER COARSE SPECKLED (test code = 699505) NEGATIVE TITER DISCRETE NUCLEAR DOTS (test code = 771734) NEGATIVE TITER NUCLEOLAR (test code = 114629) NEGATIVE TITER NUCLEAR MEMBRANE (test code = 807511) NEGATIVE TITER CYTO. RETICULAR (YEYO) (test code = 448758) NEGATIVE COMMENTS (test code = 981139) NONE METHOD (test code = 81042) (NOTE) Tashi BoothRHEUMATOID FACTOR, [id number] 00:00:00* Test Item Value Reference Range Interpretation Comme nts RHEUMATOID FACTOR, QUANT (te st code = 3502) 13 IU/ML Tashi BoothCBC W/AUTO [id number] 00:00:00* Test Item Value Reference Range Interpretation Comme nts WBC (test code = 1001) 6.8 K/UL RBC (test code = 1002) 4.02 M/UL HEMOGLOBIN (test code = 1003) 9.9 G/DL HEMATOCRIT (test code = 1004) 31.2 % MCV (test code = 1005) 77.6 fL MCH (test code = 1006) 24.6 PG MCHC (test code = 1007) 31.7 G/DL RDW (test code = 1038) 16.4 % NEUTROPHILS (test code = 1008) 69.1 % LYMPHOCYTES (test code = 1010) 20.4 % MONOCYTES (test code = 1011) 8.4 % EOSINOPHILS (test code = 1012) 1.3 % BASOPHILS (test code = 1013) 0.7 % IMMATURE GRANULOCYTES (test code = 1036) 0.1 % NUCLEATED RBCS (test code = 1065) 0.0 /100WBC'S PLATELET COUNT (test code = 1015) 399 K/UL ABSOLUTE NEUTROPHILS (test c ode = 1066) 4.71 K/UL ABSOLUTE LYMPHOCYTES (test c ode = 1067) 1.39 K/UL ABSOLUTE MONOCYTES (test cod e = 1068) 0.57 K/UL ABSOLUTE EOSINOPHILS (test c ode = 1040) 0.09 K/UL ABSOLUTE BASOPHILS (test cod e = 1069) 0.05 K/UL ABS IMMATURE GRANULOCYTES (t est code = 1020) 0.01 K/UL ABS NUCLEATED RBCS (test cod e = 25776) 0.00 K/UL Tashi BoothTSH, THIRD [id number] 00:00:00* Test Item Value Reference Range Interpretation Comme sreekanth TSH, THIRD GENERATION (test code = 2821) 1.310 UIU/ML Tashi BoothHEMOGLOBIN [id number] 00:00:00* Test Item Value Reference Range Interpretation Comme sreekanth HEMOGLOBIN A1c (test code = 81938) 5.1 % Tashi BoothVITAMIN D, 25 [id number] 00:00:00* Test Item Value Reference Range Interpretation Comme sreekanth VITAMIN D, 25 OH (test code = 4958) 19 NG/ML Tashi BoothC-REACTIVE [id number] 00:00:00* Test Item Value Reference Range Interpretation Comme sreekanth C-REACTIVE PROTEIN (test cod e = 3513) <0.3 MG/DL Tashi BoothDAYSI (ANTI-NUCLEAR AB) WITH REFLEX [id number] 00:00:00* Test Item Value Reference Range Interpretation Comme [facility] ANTI-NUCLEAR ANTIBODIES (tami t code = 3506) NEGATIVE DAYSI PATTERN (REPORTED TITER) (test code = 66542) SEE BELOW HOMOGENEOUS (test code = 10181) NEGATIVE TITER SPECKLED (test code = 040888) NEGATIVE TITER DENSE FINE SPECKLED (test co de = 16507) NEGATIVE TITER CENTROMERE (test code = 338388) NEGATIVE TITER COARSE SPECKLED (test code = 075869) NEGATIVE TITER DISCRETE NUCLEAR DOTS (test code = 249840) NEGATIVE TITER NUCLEOLAR (test code = 756448) NEGATIVE TITER NUCLEAR MEMBRANE (test code = 625338) NEGATIVE TITER CYTO. RETICULAR (YEYO) (test code = 013674) NEGATIVE COMMENTS (test code = 339093) NONE METHOD (test code = 55937) (NOTE) Tashi BoothRHEUMATOID FACTOR, [id number] 00:00:00* Test Item Value Reference Range Interpretation Comme nts RHEUMATOID FACTOR, QUANT (te st code = 3502) 13 IU/ML Tashi BoothCBC W/AUTO [id number] 00:00:00* Test Item Value Reference Range Interpretation Comme nts WBC (test code = 1001) 6.8 K/UL RBC (test code = 1002) 4.02 M/UL HEMOGLOBIN (test code = 1003) 9.9 G/DL HEMATOCRIT (test code = 1004) 31.2 % MCV (test code = 1005) 77.6 fL MCH (test code = 1006) 24.6 PG MCHC (test code = 1007) 31.7 G/DL RDW (test code = 1038) 16.4 % NEUTROPHILS (test code = 1008) 69.1 % LYMPHOCYTES (test code = 1010) 20.4 % MONOCYTES (test code = 1011) 8.4 % EOSINOPHILS (test code = 1012) 1.3 % BASOPHILS (test code = 1013) 0.7 % IMMATURE GRANULOCYTES (test code = 1036) 0.1 % NUCLEATED RBCS (test code = 1065) 0.0 /100WBC'S PLATELET COUNT (test code = 1015) 399 K/UL ABSOLUTE NEUTROPHILS (test c ode = 1066) 4.71 K/UL ABSOLUTE LYMPHOCYTES (test c ode = 1067) 1.39 K/UL ABSOLUTE MONOCYTES (test cod e = 1068) 0.57 K/UL ABSOLUTE EOSINOPHILS (test c ode = 1040) 0.09 K/UL ABSOLUTE BASOPHILS (test cod e = 1069) 0.05 K/UL ABS IMMATURE GRANULOCYTES (t est code = 1020) 0.01 K/UL ABS NUCLEATED RBCS (test cod e = 31426) 0.00 K/UL Tashi Avalos, THIRD [id number] 00:00:00* Test Item Value Reference Range Interpretation Comme nts TSH, THIRD GENERATION (test code = 2821) 1.310 UIU/ML Tashi BoothHEMOGLOBIN [id number] 00:00:00* Test Item Value Reference Range Interpretation Comme nts HEMOGLOBIN A1c (test code = 71306) 5.1 % Tashi BoothVITAMIN D, 25 [id number] 00:00:00* Test Item Value Reference Range Interpretation Comme nts VITAMIN D, 25 OH (test code = 4958) 19 NG/ML Tashi BoothC-REACTIVE [id number] 00:00:00* Test Item Value Reference Range Interpretation Comme nts C-REACTIVE PROTEIN (test cod e = 3513) <0.3 MG/DL Tashi BoothANA (ANTI-NUCLEAR AB) WITH REFLEX [id number] 00:00:00* Test Item Value Reference Range Interpretation Comme nts ANTI-NUCLEAR ANTIBODIES (tami t code = 3506) NEGATIVE DAYSI PATTERN (REPORTED TITER) (test code = 93741) SEE BELOW HOMOGENEOUS (test code = 42538) NEGATIVE TITER SPECKLED (test code = 743338) NEGATIVE TITER DENSE FINE SPECKLED (test co de = 79709) NEGATIVE TITER CENTROMERE (test code = 162159) NEGATIVE TITER COARSE SPECKLED (test code = 850892) NEGATIVE TITER DISCRETE NUCLEAR DOTS (test code = 481809) NEGATIVE TITER NUCLEOLAR (test code = 297641) NEGATIVE TITER NUCLEAR MEMBRANE (test code = 899038) NEGATIVE TITER CYTO. RETICULAR (YEYO) (test code = 107210) NEGATIVE COMMENTS (test code = 202382) NONE METHOD (test code = 10370) (NOTE) Tashi BoothRHEUMATOID FACTOR, [id number] 00:00:00* Test Item Value Reference Range Interpretation Comme nts RHEUMATOID FACTOR, QUANT (te st code = 3502) 13 IU/ML Tashi BoothCBC W/AUTO [id number] 00:00:00* Test Item Value Reference Range Interpretation Comme nts WBC (test code = 1001) 6.8 K/UL RBC (test code = 1002) 4.02 M/UL HEMOGLOBIN (test code = 1003) 9.9 G/DL HEMATOCRIT (test code = 1004) 31.2 % MCV (test code = 1005) 77.6 fL MCH (test code = 1006) 24.6 PG MCHC (test code = 1007) 31.7 G/DL RDW (test code = 1038) 16.4 % NEUTROPHILS (test code = 1008) 69.1 % LYMPHOCYTES (test code = 1010) 20.4 % MONOCYTES (test code = 1011) 8.4 % EOSINOPHILS (test code = 1012) 1.3 % BASOPHILS (test code = 1013) 0.7 % IMMATURE GRANULOCYTES (test code = 1036) 0.1 % NUCLEATED RBCS (test code = 1065) 0.0 /100WBC'S PLATELET COUNT (test code = 1015) 399 K/UL ABSOLUTE NEUTROPHILS (test c ode = 1066) 4.71 K/UL ABSOLUTE LYMPHOCYTES (test c ode = 1067) 1.39 K/UL ABSOLUTE MONOCYTES (test cod e = 1068) 0.57 K/UL ABSOLUTE EOSINOPHILS (test c ode = 1040) 0.09 K/UL ABSOLUTE BASOPHILS (test cod e = 1069) 0.05 K/UL ABS IMMATURE GRANULOCYTES (t est code = 1020) 0.01 K/UL ABS NUCLEATED RBCS (test cod e = 91106) 0.00 K/UL Tashi BoothTSH, THIRD [id number] 00:00:00* Test Item Value Reference Range Interpretation Comme [facility] TSH, THIRD GENERATION (test code = 2821) 1.310 UIU/ML Tashi BoothHEMOGLOBIN [id number] 00:00:00* Test Item Value Reference Range Interpretation Comme [facility] HEMOGLOBIN A1c (test code = 00701) 5.1 % Tashi BoothVITAMIN D, 25 [id number] 00:00:00* Test Item Value Reference Range Interpretation Comme [facility] VITAMIN D, 25 OH (test code = 4958) 19 NG/ML Tashi BoothC-REACTIVE [id number] 00:00:00* Test Item Value Reference Range Interpretation Comme [facility] C-REACTIVE PROTEIN (test cod e = 3513) <0.3 MG/DL Tashi Ponce (ANTI-NUCLEAR AB) WITH REFLEX [id number] 00:00:00* Test Item Value Reference Range Interpretation Comme nts ANTI-NUCLEAR ANTIBODIES (tami t code = 3506) NEGATIVE DAYSI PATTERN (REPORTED TITER) (test code = 41576) SEE BELOW HOMOGENEOUS (test code = 72119) NEGATIVE TITER SPECKLED (test code = 543348) NEGATIVE TITER DENSE FINE SPECKLED (test co de = 86212) NEGATIVE TITER CENTROMERE (test code = 907397) NEGATIVE TITER COARSE SPECKLED (test code = 354271) NEGATIVE TITER DISCRETE NUCLEAR DOTS (test code = 371834) NEGATIVE TITER NUCLEOLAR (test code = 992333) NEGATIVE TITER NUCLEAR MEMBRANE (test code = 058693) NEGATIVE TITER CYTO. RETICULAR (YEYO) (test code = 010150) NEGATIVE COMMENTS (test code = 254477) NONE METHOD (test code = 74200) (NOTE) Tashi BoothRHEUMATOID FACTOR, [id number] 00:00:00* Test Item Value Reference Range Interpretation Comme nts RHEUMATOID FACTOR, QUANT (te st code = 3502) 13 IU/ML Tashi BoothCBC W/AUTO [id number] 00:00:00* Test Item Value Reference Range Interpretation Comme nts WBC (test code = 1001) 6.8 K/UL RBC (test code = 1002) 4.02 M/UL HEMOGLOBIN (test code = 1003) 9.9 G/DL HEMATOCRIT (test code = 1004) 31.2 % MCV (test code = 1005) 77.6 fL MCH (test code = 1006) 24.6 PG MCHC (test code = 1007) 31.7 G/DL RDW (test code = 1038) 16.4 % NEUTROPHILS (test code = 1008) 69.1 % LYMPHOCYTES (test code = 1010) 20.4 % MONOCYTES (test code = 1011) 8.4 % EOSINOPHILS (test code = 1012) 1.3 % BASOPHILS (test code = 1013) 0.7 % IMMATURE GRANULOCYTES (test code = 1036) 0.1 % NUCLEATED RBCS (test code = 1065) 0.0 /100WBC'S PLATELET COUNT (test code = 1015) 399 K/UL ABSOLUTE NEUTROPHILS (test c ode = 1066) 4.71 K/UL ABSOLUTE LYMPHOCYTES (test c ode = 1067) 1.39 K/UL ABSOLUTE MONOCYTES (test cod e = 1068) 0.57 K/UL ABSOLUTE EOSINOPHILS (test c ode = 1040) 0.09 K/UL ABSOLUTE BASOPHILS (test cod e = 1069) 0.05 K/UL ABS IMMATURE GRANULOCYTES (t est code = 1020) 0.01 K/UL ABS NUCLEATED RBCS (test cod e = 03137) 0.00 K/UL Tashi BoothTSH, THIRD [id number] 00:00:00* Test Item Value Reference Range Interpretation Comme nts TSH, THIRD GENERATION (test code = 2821) 1.310 UIU/ML Tashi BoothHEMOGLOBIN [id number] 00:00:00* Test Item Value Reference Range Interpretation Comme nts HEMOGLOBIN A1c (test code = 07003) 5.1 % Tashi BoothVITAMIN D, 25 [id number] 00:00:00* Test Item Value Reference Range Interpretation Comme nts VITAMIN D, 25 OH (test code = 4958) 19 NG/ML Tashi BoothC-REACTIVE [id number] 00:00:00* Test Item Value Reference Range Interpretation Comme nts C-REACTIVE PROTEIN (test cod e = 3513) <0.3 MG/DL Tashi Ponce (ANTI-NUCLEAR AB) WITH REFLEX [id number] 00:00:00* Test Item Value Reference Range Interpretation Comme nts ANTI-NUCLEAR ANTIBODIES (tami t code = 3506) NEGATIVE DAYSI PATTERN (REPORTED TITER) (test code = 82711) SEE BELOW HOMOGENEOUS (test code = 77573) NEGATIVE TITER SPECKLED (test code = 840191) NEGATIVE TITER DENSE FINE SPECKLED (test co de = 69018) NEGATIVE TITER CENTROMERE (test code = 211800) NEGATIVE TITER COARSE SPECKLED (test code = 413820) NEGATIVE TITER DISCRETE NUCLEAR DOTS (test code = 255227) NEGATIVE TITER NUCLEOLAR (test code = 913140) NEGATIVE TITER NUCLEAR MEMBRANE (test code = 156407) NEGATIVE TITER CYTO. RETICULAR (YEYO) (test code = 913800) NEGATIVE COMMENTS (test code = 271480) NONE METHOD (test code = 43256) (NOTE) Tashi BoothRHEUMATOID FACTOR, [id number] 00:00:00* Test Item Value Reference Range Interpretation Comme nts RHEUMATOID FACTOR, QUANT (te st code = 3502) 13 IU/ML Tashi BoothCBC W/AUTO [id number] 00:00:00* Test Item Value Reference Range Interpretation Comme nts WBC (test code = 1001) 6.8 K/UL RBC (test code = 1002) 4.02 M/UL HEMOGLOBIN (test code = 1003) 9.9 G/DL HEMATOCRIT (test code = 1004) 31.2 % MCV (test code = 1005) 77.6 fL MCH (test code = 1006) 24.6 PG MCHC (test code = 1007) 31.7 G/DL RDW (test code = 1038) 16.4 % NEUTROPHILS (test code = 1008) 69.1 % LYMPHOCYTES (test code = 1010) 20.4 % MONOCYTES (test code = 1011) 8.4 % EOSINOPHILS (test code = 1012) 1.3 % BASOPHILS (test code = 1013) 0.7 % IMMATURE GRANULOCYTES (test code = 1036) 0.1 % NUCLEATED RBCS (test code = 1065) 0.0 /100WBC'S PLATELET COUNT (test code = 1015) 399 K/UL ABSOLUTE NEUTROPHILS (test c ode = 1066) 4.71 K/UL ABSOLUTE LYMPHOCYTES (test c ode = 1067) 1.39 K/UL ABSOLUTE MONOCYTES (test cod e = 1068) 0.57 K/UL ABSOLUTE EOSINOPHILS (test c ode = 1040) 0.09 K/UL ABSOLUTE BASOPHILS (test cod e = 1069) 0.05 K/UL ABS IMMATURE GRANULOCYTES (t est code = 1020) 0.01 K/UL ABS NUCLEATED RBCS (test cod e = 30641) 0.00 K/UL Tashi BoothTSH, THIRD [id number] 00:00:00* Test Item Value Reference Range Interpretation Comme nts TSH, THIRD GENERATION (test code = 2821) 1.310 UIU/ML Tashi BoothHEMOGLOBIN [id number] 00:00:00* Test Item Value Reference Range Interpretation Comme nts HEMOGLOBIN A1c (test code = 29938) 5.1 % Tashi BoothSURGICAL PATHOLOGY [id number] 12:18:31* Test Item Value Reference Range Interpretation Comme nts DIAGNOSIS: (test code = 8200) (NOTE) A) Curettage - EndocervixBenign endometrial tissue. MICROSCOPIC DESCRIPTION: (test code = 8210) (NOTE) A) This specimen consists mostly of benign endometrial tissue. Only minimal endocervical epithelium is represented. There is noatypia, hyperplasia, or malignancy. CLINICAL DATA: (test code = 8401) (NOTE) Not specified GROSS DESCRIPTION: (test code = 8220) (NOTE) A) SPECIMEN L ABELED: EndocervixSIZE/WEIGHT: 0.6x0.6x0.2 cm AggregateSPECIMEN COLOR: Vincent-brownNUMBER OF TISSUE PIECES: multipleSUBMITTED IN CASSETTE(S): [id number]: FormalinCOMMENTS:Received on cytology brush. Mostly blood-tinged mucus. Filtered,scraped, entirely submitted. PATHOLOGIST: (test code = 8250) (NOTE) Hira Rubalcava M.D. Board certified in Dermatopathology, AnatomicPathology Specimens processed and interpreted at [facility], [address] [place] [address], , CLIA: [id number] CPT: (test code = 8400) (NOTE) [id number] UNLESS OT HERWISE INDICATED, ALL TESTING PERFORMED AT [facility] [address] [place] [address] DIVISION ORDER ANALYST: KIANNA YING M.D. CLIA NUMBER [id number] [facility] [place]. [id number] SURGICAL PATHOLOGY [id number] 00:00:00* Test Item Value Reference Range Interpretation Comme nts DIAGNOSIS: (test code = 8200) (NOTE) MICROSCOPIC DESCRIPTION: (te st code = 8210) (NOTE) CLINICAL DATA: (test code = 8401) (NOTE) GROSS DESCRIPTION: (test code = 8220) (NOTE) PATHOLOGIST: (test code = 8250) (NOTE) CPT: (test code = 8400) (NOTE) PDFE (test code = PDFReport) PDF Tashi Marques [facility] [id number] 00:00:00* Test Item Value Reference Range Interpretation Comme nts DIAGNOSIS: (test code = 8200) (NOTE) MICROSCOPIC DESCRIPTION: (te st code = 8210) (NOTE) CLINICAL DATA: (test code = 8401) (NOTE) GROSS DESCRIPTION: (test code = 8220) (NOTE) PATHOLOGIST: (test code = 8250) (NOTE) CPT: (test code = 8400) (NOTE) PDFE (test code = PDFReport) PDF [facility] [id number] 00:00:00* Test Item Value Reference Range Interpretation Comme nts DIAGNOSIS: (test code = 8200) (NOTE) MICROSCOPIC DESCRIPTION: (te st code = 8210) (NOTE) CLINICAL DATA: (test code = 8401) (NOTE) GROSS DESCRIPTION: (test code = 8220) (NOTE) PATHOLOGIST: (test code = 8250) (NOTE) CPT: (test code = 8400) (NOTE) PDFE (test code = PDFReport) PDF [facility]ashi Marques [facility] [id number] 00:00:00* Test Item Value Reference Range Interpretation Comme nts DIAGNOSIS: (test code = 8200) (NOTE) MICROSCOPIC DESCRIPTION: (te st code = 8210) (NOTE) CLINICAL DATA: (test code = 8401) (NOTE) GROSS DESCRIPTION: (test code = 8220) (NOTE) PATHOLOGIST: (test code = 8250) (NOTE) CPT: (test code = 8400) (NOTE) PDFE (test code = PDFReport) PDF Tashi Marques [facility] [id number] 00:00:00* Test Item Value Reference Range Interpretation Comme nts DIAGNOSIS: (test code = 8200) (NOTE) MICROSCOPIC DESCRIPTION: (te st code = 8210) (NOTE) CLINICAL DATA: (test code = 8401) (NOTE) GROSS DESCRIPTION: (test code = 8220) (NOTE) PATHOLOGIST: (test code = 8250) (NOTE) CPT: (test code = 8400) (NOTE) PDFE (test code = PDFReport) PDF Tashi Marques GleasonSURGICAL PATHOLOGY [id number] 00:00:00* Test Item Value Reference Range Interpretation Comme nts DIAGNOSIS: (test code = 8200) (NOTE) MICROSCOPIC DESCRIPTION: (te st code = 8210) (NOTE) CLINICAL DATA: (test code = 8401) (NOTE) GROSS DESCRIPTION: (test code = 8220) (NOTE) PATHOLOGIST: (test code = 8250) (NOTE) CPT: (test code = 8400) (NOTE) PDFE (test code = PDFReport) PDF Tashi Marques AustinSURGICAL PATHOLOGY [id number] 00:00:00* Test Item Value Reference Range Interpretation Comme nts DIAGNOSIS: (test code = 8200) (NOTE) MICROSCOPIC DESCRIPTION: (te st code = 8210) (NOTE) CLINICAL DATA: (test code = 8401) (NOTE) GROSS DESCRIPTION: (test code = 8220) (NOTE) PATHOLOGIST: (test code = 8250) (NOTE) CPT: (test code = 8400) (NOTE) PDFE (test code = PDFReport) PDF Tashi Marques AustinSURGICAL PATHOLOGY [id number] 00:00:00* Test Item Value Reference Range Interpretation Comme nts DIAGNOSIS: (test code = 8200) (NOTE) MICROSCOPIC DESCRIPTION: (te st code = 8210) (NOTE) CLINICAL DATA: (test code = 8401) (NOTE) GROSS DESCRIPTION: (test code = 8220) (NOTE) PATHOLOGIST: (test code = 8250) (NOTE) CPT: (test code = 8400) (NOTE) PDFE (test code = PDFReport) PDF Tashi Marques AustinSURGICAL PATHOLOGY [id number] 00:00:00* Test Item Value Reference Range Interpretation Comme nts DIAGNOSIS: (test code = 8200) (NOTE) MICROSCOPIC DESCRIPTION: (te st code = 8210) (NOTE) CLINICAL DATA: (test code = 8401) (NOTE) GROSS DESCRIPTION: (test code = 8220) (NOTE) PATHOLOGIST: (test code = 8250) (NOTE) CPT: (test code = 8400) (NOTE) PDFE (test code = PDFReport) PDF Tashi BoothPAP TEST, THINPREP, [id number] 14:45:36* Test Item Value Reference Range Interpretation Comme nts SOURCE: (test code = 8001) Cervical/Endoc ervical SLIDES: (test code = 8011) 2 LMP: (test code = 8021) 02/08/2023 SPECIMEN ADEQUACY: (test code = 21887) (NOTE) Unsatisfactory ( see Interpretation). INTERPRETATION: (test code = 03311) UNSATISFACTORY ; SEE BELOW A ---- UNSATISFACTORY FOR EVALUATION Insufficient cellularity (Charges deleted, please resubmit) ------- OTHER COMMENTS: (test code = 8081) (NOTE) Background mater ial consistent with lubricant is present, whichinterferes with specimen processing.Interpreted using an alternate method of processing. This testwas developed and its performance characteristics determined [facility] It has not been cleared orapproved by the FDA. The laboratory is regulated under CLIA asqualified to perform high-complexity testing. This test is usedfor clinical purposes. It should not be regarded asinvestigational or for research. SENIOR FOREMAN : (test code = 8101) UMBERTO Barnes (ASC) QC TECHNOLOGIST: (test code = 8111) UMBERTO Byrd(ASC )[facility] LOCATION: (test code = 76045) (NOTE) Specimens proces sed and interpreted at [facility], [address] [place] [address], , CLIA: [id number] CPT: (test code = 8140) (NOTE) 79198 UNLESS OTH ERWISE INDICATED, COMPUTER AIDED AND SENIOR FOREMAN SCREENING PERFORMED. The Pap test is a screening test with an inherent, but low probability of error. Your patient should be reminded to consult you immediately if she experiences any suspicious signs or symptoms, regardless of her Pap test result. An alternate report format containing images or consolidated prior Pap history is available as applicable. PAP TEST, THINPREP, [id number] 00:00:00* Test Item Value Reference Range Interpretation Comme nts SOURCE: (test code = 8001) Cervical/Endocervical SLIDES: (test code = 8011) 2 LMP: (test code = 8021) 02/08/2023 SPECIMEN ADEQUACY: (test code = 79542) (NOTE) INTERPRETATION: (test code = 31508) UNSATISFACTORY; SEE BELOW OTHER COMMENTS: (test code = 8081) (NOTE) SENIOR FOREMAN: (test code = 8101) UMBERTO Barnes (ASCP) QC TECHNOLOGIST: (test code = 8111) UMBERTO Byrd(ASCP)[facility]AC LOCATION: (test code = 08540) (NOTE) CPT: (test code = 8140) (NOTE) Tashi BoothPAP TEST, THINPREP, [id number] 00:00:00* Test Item Value Reference Range Interpretation Comme nts SOURCE: (test code = 8001) Cervical/Endocervical SLIDES: (test code = 8011) 2 LMP: (test code = 8021) 02/08/2023 SPECIMEN ADEQUACY: (test code = 55959) (NOTE) INTERPRETATION: (test code = 25597) UNSATISFACTORY; SEE BELOW OTHER COMMENTS: (test code = 8081) (NOTE) SENIOR FOREMAN: (test code = 8101) UMBERTO Barnes (ASCP) QC TECHNOLOGIST: (test code = 8111) UMBERTO Byrd(ASCP)[facility] LOCATION: (test code = 71725) (NOTE) CPT: (test code = 8140) (NOTE) Tashi BoothNANIP TEST, THINPREP, [id number] 00:00:00* Test Item Value Reference Range Interpretation Comme nts SOURCE: (test code = 8001) Cervical/Endocervical SLIDES: (test code = 8011) 2 LMP: (test code = 8021) 02/08/2023 SPECIMEN ADEQUACY: (test code = 07836) (NOTE) INTERPRETATION: (test code = 13780) UNSATISFACTORY; SEE BELOW OTHER COMMENTS: (test code = 8081) (NOTE) SENIOR FOREMAN: (test code = 8101) UMBERTO Barnes (ASCP) QC TECHNOLOGIST: (test code = 8111) UMBERTO Byrd(ASCP)IAC LOCATION: (test code = 82072) (NOTE) CPT: (test code = 8140) (NOTE) Tashi BoothPAP TEST, THINPREP, [id number] 00:00:00* Test Item Value Reference Range Interpretation Comme nts SOURCE: (test code = 8001) Cervical/Endocervical SLIDES: (test code = 8011) 2 LMP: (test code = 8021) 02/08/2023 SPECIMEN ADEQUACY: (test code = 00413) (NOTE) INTERPRETATION: (test code = 65866) UNSATISFACTORY; SEE BELOW OTHER COMMENTS: (test code = 8081) (NOTE) SENIOR FOREMAN: (test code = 8101) UMBETRO Barnes (ASCP) QC TECHNOLOGIST: (test code = 8111) UMBERTO Byrd(ASCP)IAC LOCATION: (test code = 99741) (NOTE) CPT: (test code = 8140) (NOTE) Tashi CohenP TEST, THINPREP, [id number] 00:00:00* Test Item Value Reference Range Interpretation Comme nts SOURCE: (test code = 8001) Cervical/Endocervical SLIDES: (test code = 8011) 2 LMP: (test code = 8021) 02/08/2023 SPECIMEN ADEQUACY: (test code = 33468) (NOTE) INTERPRETATION: (test code = 93502) UNSATISFACTORY; SEE BELOW OTHER COMMENTS: (test code = 8081) (NOTE) SENIOR FOREMAN: (test code = 8101) UMBERTO Barnes (ASCP) QC TECHNOLOGIST: (test code = 8111) UMBERTO Byrd(ASCP)IAC LOCATION: (test code = 43196) (NOTE) CPT: (test code = 8140) (NOTE) Tashi CohenP TEST, THINPREP, [id number] 00:00:00* Test Item Value Reference Range Interpretation Comme nts SOURCE: (test code = 8001) Cervical/Endocervical SLIDES: (test code = 8011) 2 LMP: (test code = 8021) 02/08/2023 SPECIMEN ADEQUACY: (test code = 91971) (NOTE) INTERPRETATION: (test code = 54943) UNSATISFACTORY; SEE BELOW OTHER COMMENTS: (test code = 8081) (NOTE) SENIOR FOREMAN: (test code = 8101) UMBERTO Barnes (ASCP) QC TECHNOLOGIST: (test code = 8111) UMBERTO Byrd(ASCP)IAC LOCATION: (test code = 74671) (NOTE) CPT: (test code = 8140) (NOTE) Tashi CohenP TEST, THINPREP, [id number] 00:00:00* Test Item Value Reference Range Interpretation Comme nts SOURCE: (test code = 8001) Cervical/Endocervical SLIDES: (test code = 8011) 2 LMP: (test code = 8021) 02/08/2023 SPECIMEN ADEQUACY: (test code = 78593) (NOTE) INTERPRETATION: (test code = 46543) UNSATISFACTORY; SEE BELOW OTHER COMMENTS: (test code = 8081) (NOTE) SENIOR FOREMAN: (test code = 8101) UMBERTO Barnes (ASCP) QC TECHNOLOGIST: (test code = 8111) UMBERTO Byrd(ASCP)[facility]AC LOCATION: (test code = 15024) (NOTE) CPT: (test code = 8140) (NOTE) Tashi BoothNANIP TEST, THINPREP, [id number] 00:00:00* Test Item Value Reference Range Interpretation Comme nts SOURCE: (test code = 8001) Cervical/Endocervical SLIDES: (test code = 8011) 2 LMP: (test code = 8021) 02/08/2023 SPECIMEN ADEQUACY: (test code = 84577) (NOTE) INTERPRETATION: (test code = 57645) UNSATISFACTORY; SEE BELOW OTHER COMMENTS: (test code = 8081) (NOTE) SENIOR FOREMAN: (test code = 8101) UMBERTO Barnes (ASCP) QC TECHNOLOGIST: (test code = 8111) UMBERTO Byrd(ASCP)IAC LOCATION: (test code = 02080) (NOTE) CPT: (test code = 8140) (NOTE) Tashi CohenP TEST, THINPREP, [id number] 00:00:00* Test Item Value Reference Range Interpretation Comme nts SOURCE: (test code = 8001) Cervical/Endocervical SLIDES: (test code = 8011) 2 LMP: (test code = 8021) 02/08/2023 SPECIMEN ADEQUACY: (test code = 69252) (NOTE) INTERPRETATION: (test code = 93462) UNSATISFACTORY; SEE BELOW OTHER COMMENTS: (test code = 8081) (NOTE) SENIOR FOREMAN: (test code = 8101) UMBERTO Barnes (ASCP) QC TECHNOLOGIST: (test code = 8111) UMBERTO Byrd(ASCP)IAC LOCATION: (test code = 65962) (NOTE) CPT: (test code = 8140) (NOTE) Tashi Marques AustinHPV HIGH RISK WITH GENOTYPE, [id number] 13:04:31* Test Item Value Reference Range Interpretation Comme nts HPV HIGH RISK INTERP (test code = 95689) POSITIVE NEGATIVE A HPV 16 (test code = 01746) NEGATIVE HPV 18 (test code = 15755) NEGATIVE HPV, HR, OTHER GENOTYPES (test code = 69031) POSITIVE A Testing methodol ogy is real-time PCR utilizing hydrolysis probes with the [employer] 4800 system. The test individually detects genotypes 16 and 18, as well as the other 12 high risk types (31,33,35,39,45,51,52,56 ,58,59,66,68). The expected result is negative. A negative result does not rule out the presence of HPV not included in the genotype set, a low level of infection or specimen sampling error. UNLESS OTHERWISE INDICATED, ALL TESTING PERFORMED AT [facility] [address] [place] [address] DIVISION ORDER ANALYST: KIANNA YING M.D. [place] NUMBER [id number] [facility] [place]. [id number] HPV HIGH RISK WITH GENOTYPE, [id number] 00:00:00* Test Item Value Reference Range Interpretation Comme nts HPV HIGH RISK INTERP (test c ode = 67132) POSITIVE HPV 16 (test code = 95316) NEGATIVE HPV 18 (test code = 18627) NEGATIVE HPV, HR, OTHER GENOTYPES (te st code = 45192) POSITIVE PDFE (test code = PDFReport) PDF Tashi Marques AustinHPV HIGH RISK WITH GENOTYPE, [id number] 00:00:00* Test Item Value Reference Range Interpretation Comme nts HPV HIGH RISK INTERP (test c ode = 67633) POSITIVE HPV 16 (test code = 29095) NEGATIVE HPV 18 (test code = 73310) NEGATIVE HPV, HR, OTHER GENOTYPES (te st code = 98482) POSITIVE PDFE (test code = PDFReport) PDF Tashi Marques AustinHPV HIGH RISK WITH GENOTYPE, [id number] 00:00:00* Test Item Value Reference Range Interpretation Comme nts HPV HIGH RISK INTERP (test c ode = 34581) POSITIVE HPV 16 (test code = 75816) NEGATIVE HPV 18 (test code = 02655) NEGATIVE HPV, HR, OTHER GENOTYPES (te st code = 14023) POSITIVE PDFE (test code = PDFReport) PDF Tashi Marques AustinHPV HIGH RISK WITH GENOTYPE, [id number] 00:00:00* Test Item Value Reference Range Interpretation Comme nts HPV HIGH RISK INTERP (test c ode = 91362) POSITIVE HPV 16 (test code = 41814) NEGATIVE HPV 18 (test code = 06919) NEGATIVE HPV, HR, OTHER GENOTYPES (te st code = 69246) POSITIVE PDFE (test code = PDFReport) PDF Tashi Marques AustinHPV HIGH RISK WITH GENOTYPE, [id number] 00:00:00* Test Item Value Reference Range Interpretation Comme nts HPV HIGH RISK INTERP (test c ode = 07298) POSITIVE HPV 16 (test code = 67719) NEGATIVE HPV 18 (test code = 07389) NEGATIVE HPV, HR, OTHER GENOTYPES (te st code = 83929) POSITIVE PDFE (test code = PDFReport) PDF Tashi Marques AustinHPV HIGH RISK WITH GENOTYPE, [id number] 00:00:00* Test Item Value Reference Range Interpretation Comme nts HPV HIGH RISK INTERP (test c ode = 67935) POSITIVE HPV 16 (test code = 11546) NEGATIVE HPV 18 (test code = 66246) NEGATIVE HPV, HR, OTHER GENOTYPES (te st code = 83728) POSITIVE PDFE (test code = PDFReport) SILVIO Marques AustinHPV HIGH RISK WITH GENOTYPE, [id number] 00:00:00* Test Item Value Reference Range Interpretation Comme nts HPV HIGH RISK INTERP (test c ode = 56609) POSITIVE HPV 16 (test code = 74314) NEGATIVE HPV 18 (test code = 82778) NEGATIVE HPV, HR, OTHER GENOTYPES (te st code = 76654) POSITIVE PDFE (test code = PDFReport) PDF Tashi Marques AustinHPV HIGH RISK WITH GENOTYPE, [id number] 00:00:00* Test Item Value Reference Range Interpretation Comme nts HPV HIGH RISK INTERP (test c ode = 37367) POSITIVE HPV 16 (test code = 46364) NEGATIVE HPV 18 (test code = 13327) NEGATIVE HPV, HR, OTHER GENOTYPES (te st code = 86125) POSITIVE PDFE (test code = PDFReport) PDF Tashi Marques AustinHPV HIGH RISK WITH GENOTYPE, [id number] 00:00:00* Test Item Value Reference Range Interpretation Comme nts HPV HIGH RISK INTERP (test c ode = 53756) POSITIVE HPV 16 (test code = 85436) NEGATIVE HPV 18 (test code = 13088) NEGATIVE HPV, HR, OTHER GENOTYPES (te st code = 67047) POSITIVE PDFE (test code = PDFReport) PDF Tashi Marques AustinCT/NG, NAAT, [id number] 15:02:34* Test Item Value Reference Range Interpretation Comme nts CHLAMYDIA, NAAT, URINE (test code = 31355) NEGATIVE NEGATIVE Testing is perfo rmed with [employer] AURA 6800/8800 systems usingreal-time polymerase chain reaction (PCR) method. A negative result does not exclude low level infection, specimensampling error, or collection error. GONORRHEA, NAAT, URINE (test code = 03975) NEGATIVE NEGATIVE Testing is perfo rmed with [employer]reet [employer]A 6800/8800 systems usingreal-time polymerase chain reaction (PCR) method. A negative result does not exclude low level infection, specimensampling error, or collection error. CT/NG, TMA, [id number] 00:00:00* Test Item Value Reference Range Interpretation Comme nts CHLAMYDIA, NAAT, URINE (test code = 68444) NEGATIVE GONORRHEA, NAAT, URINE (test code = 71275) NEGATIVE Tashi Marques AustinCT/NG, TMA, [id number] 00:00:00* Test Item Value Reference Range Interpretation Comme nts CHLAMYDIA, NAAT, URINE (test code = 01998) NEGATIVE GONORRHEA, NAAT, URINE (test code = 63205) NEGATIVE Tashi Marques AustinCT/NG, TMA, [id number] 00:00:00* Test Item Value Reference Range Interpretation Comme nts CHLAMYDIA, NAAT, URINE (test code = 17510) NEGATIVE GONORRHEA, NAAT, URINE (test code = 00437) NEGATIVE Tashi Marques AustinCT/NG, TMA, [id number] 00:00:00* Test Item Value Reference Range Interpretation Comme nts CHLAMYDIA, NAAT, URINE (test code = 66898) NEGATIVE GONORRHEA, NAAT, URINE (test code = 76481) NEGATIVE Tashi Marques AustinCT/NG, TMA, [id number] 00:00:00* Test Item Value Reference Range Interpretation Comme nts CHLAMYDIA, NAAT, URINE (test code = 84476) NEGATIVE GONORRHEA, NAAT, URINE (test code = 47522) NEGATIVE Tashi F AustinCT/NG, TMA, [id number] 00:00:00* Test Item Value Reference Range Interpretation Comme nts CHLAMYDIA, NAAT, URINE (test code = 87991) NEGATIVE GONORRHEA, NAAT, URINE (test code = 11576) NEGATIVE Tashi Marques AustinCT/NG, TMA, [id number] 00:00:00* Test Item Value Reference Range Interpretation Comme nts CHLAMYDIA, NAAT, URINE (test code = 92321) NEGATIVE GONORRHEA, NAAT, URINE (test code = 84786) NEGATIVE Tashi F AustinCT/NG, TMA, [id number] 00:00:00* Test Item Value Reference Range Interpretation Comme nts CHLAMYDIA, NAAT, URINE (test code = 84156) NEGATIVE GONORRHEA, NAAT, URINE (test code = 35921) NEGATIVE Tashi Marques AustinCT/NG, TMA, [id number] 00:00:00* Test Item Value Reference Range Interpretation Comme nts CHLAMYDIA, NAAT, URINE (test code = 08179) NEGATIVE GONORRHEA, NAAT, URINE (test code = 17226) NEGATIVE Tashi BoothCULTURE, [id number] 09:55:42SPECIMEN NUMBER: [id number] CULTURE, URINE SPECIMEN NUMBER: [id number] SPECIMEN COMMENT: URINE SOURCE: URINE REPORT STATUS: FINAL FINAL REPORT: 02/24/2023 NO GROWTH AFTER 36 HOURS INCUBATIONCULTURE, [id number] 00:00:00* Test Item Value Reference Range Interpretation Comme nts CULTURE, URINE (test code = 56790) SPECIMEN NUMBER: [id number] Tashi BoothCULTURE, [id number] 00:00:00* Test Item Value Reference Range Interpretation Comme nts CULTURE, URINE (test code = 76690) SPECIMEN NUMBER: [id number] Tashi Rivero, [id number] 00:00:00* Test Item Value Reference Range Interpretation Comme nts CULTURE, URINE (test code = 38448) SPECIMEN NUMBER: [id number] Tashi Rivero [id number] 00:00:00* Test Item Value Reference Range Interpretation Comme nts CULTURE, URINE (test code = 84991) SPECIMEN NUMBER: [id number] Tashi Rivero, [id number] 00:00:00* Test Item Value Reference Range Interpretation Comme nts CULTURE, URINE (test code = 88139) SPECIMEN NUMBER: [id number] Tashi Rivero, [id number] 00:00:00* Test Item Value Reference Range Interpretation Comme nts CULTURE, URINE (test code = 53718) SPECIMEN NUMBER: [id number] Tashi Rivero, [id number] 00:00:00* Test Item Value Reference Range Interpretation Comme nts CULTURE, URINE (test code = 44143) SPECIMEN NUMBER: [id number] Tashi Rivero, [id number] 00:00:00* Test Item Value Reference Range Interpretation Comme nts CULTURE, URINE (test code = 55432) SPECIMEN NUMBER: [id number] Tashi Rivero [id number] 00:00:00* Test Item Value Reference Range Interpretation Comme nts CULTURE, URINE (test code = 14659) SPECIMEN NUMBER: [id number] Tashi BoothVAGINAL PATHOGENS DNA [id number] 14:16:00* Test Item Value Reference Range Interpretation Comme nts GERMAN SPECIES (test code = 53760) NEGATIVE NEGATIVE G. VAGINALIS (test code = 49758) NEGATIVE NEGATIVE T. VAGINALIS (test code = 74985) NEGATIVE NEGATIVE Note: The [facility] VPIII Microbial Identification Testis a DNA probe test intended for use in the detectionand identification of German species, Gardnerellavaginalis and Trichomonas vaginalis nucleic acid. UNLESS OTHERWISE INDICATED, ALL TESTING PERFORMED AT [facility] [address] [place] [address] DIVISION ORDER ANALYST: KIANNA YING M.D. [place] NUMBER [id number] [facility] [place] [place]. [id number] HEPATITIS PANEL, [id number] 06:11:27* Test Item Value Reference Range Interpretation Comme nts HEPATITIS A IgM (test code = 73768) NON-REACTIVE NON-REACTIVE HEPATITIS B CORE IgM (test code = 4644) NON-REACTIVE NON-REACTIVE HEPATITIS B SURF AG (test code = 2739) NON-REACTIVE NON-REACTIVE HEPATITIS C ANTIBODY (test code = 4675) NON-REACTIVE NON-REACTIVE INTERPRETATION HEPATITIS A: (test code = 2552) (NOTE) Hepatitis A serology shows no evidence of acute hepatitis A. INTERPRETATION HEPATITIS B: (test code = 96892) (NOTE) Hepatitis B serology shows no evidence of acute hepatitis B andno indication of exposure to hepatitis B virus in the previous tereza eight months. INTERPRETATION HEPATITIS C: (test code = 12822) (NOTE) Hepatitis C serology shows no evidence of exposure to hepatitisC virus at this time. It can take up to 12 months after exposure tothe hepatitis C virus for antibodies to become detectable in the blood in certain patients. HIV 1/2 4TH GEN, RFLX [id number] 06:11:27* Test Item Value Reference Range Interpretation Comme nts HIV 1/2 4TH GEN, RFLX CONF ( test code = 3514) NON-REACTIVE NON-REACTIVE [id number] 04:56:06* Test Item Value Reference Range Interpretation Comme nts RPR RESULT (test code = 3501) NON-REACTIVE NON-REACTIVE RPR TITER (test code = 3500) NOT INDIC. TITER NOT INDIC. [id number] 00:00:00* Test Item Value Reference Range Interpretation Comme nts RPR RESULT (test code = 3501) NON-REACTIVE RPR TITER (test code = 3500) NOT INDIC. TITER Tashi F AustinHIV 1/2 4TH GEN, RFLX [id number] 00:00:00* Test Item Value Reference Range Interpretation Comme nts HIV 1/2 4TH GEN, RFLX CONF ( test code = 3514) NON-REACTIVE Tashi F AustinVAGINAL PATHOGENS DNA [id number] 00:00:00* Test Item Value Reference Range Interpretation Comme nts GERMAN SPECIES (test code = ) NEGATIVE G. VAGINALIS (test code = 47362) NEGATIVE T. VAGINALIS (test code = 89596) NEGATIVE Tashi BoothACUTE HEPATITIS [id number] 00:00:00* Test Item Value Reference Range Interpretation Comme nts HEPATITIS A IgM (test code = 04957) NON-REACTIVE HEPATITIS B CORE IgM (test c ode = 4644) NON-REACTIVE HEPATITIS B SURF AG (test co de = 2739) NON-REACTIVE HEPATITIS C ANTIBODY (test c ode = 4675) NON-REACTIVE INTERPRETATION HEPATITIS A: (test code = 2552) (NOTE) INTERPRETATION HEPATITIS B: (test code = 02721) (NOTE) INTERPRETATION HEPATITIS C: (test code = 98385) (NOTE) Tashi [id number] 00:00:00* Test Item Value Reference Range Interpretation Comme nts RPR RESULT (test code = 3501) NON-REACTIVE RPR TITER (test code = 3500) NOT INDIC. TITER Tashi BoothHIV 1/2 4TH GEN, RFLX [id number] 00:00:00* Test Item Value Reference Range Interpretation Comme nts HIV 1/2 4TH GEN, RFLX CONF ( test code = 3514) NON-REACTIVE Tashi BoothVAGINAL PATHOGENS DNA [id number] 00:00:00* Test Item Value Reference Range Interpretation Comme nts GERMAN SPECIES (test code = ) NEGATIVE G. VAGINALIS (test code = 03355) NEGATIVE T. VAGINALIS (test code = 49778) NEGATIVE Tashi BoothACUTE HEPATITIS [id number] 00:00:00* Test Item Value Reference Range Interpretation Comme nts HEPATITIS A IgM (test code = 09304) NON-REACTIVE HEPATITIS B CORE IgM (test c ode = 4644) NON-REACTIVE HEPATITIS B SURF AG (test co de = 2739) NON-REACTIVE HEPATITIS C ANTIBODY (test c ode = 4675) NON-REACTIVE INTERPRETATION HEPATITIS A: (test code = 2552) (NOTE) INTERPRETATION HEPATITIS B: (test code = 33525) (NOTE) INTERPRETATION HEPATITIS C: (test code = 80185) (NOTE) Tashi Marques [id number] 00:00:00* Test Item Value Reference Range Interpretation Comme nts RPR RESULT (test code = 3501) NON-REACTIVE RPR TITER (test code = 3500) NOT INDIC. TITER Tashi BoothHIV 1/2 4TH GEN, RFLX [id number] 00:00:00* Test Item Value Reference Range Interpretation Comme nts HIV 1/2 4TH GEN, RFLX CONF ( test code = 3514) NON-REACTIVE Tashi Marques AustinVAGINAL PATHOGENS DNA [id number] 00:00:00* Test Item Value Reference Range Interpretation Comme nts GERMAN SPECIES (test code = ) NEGATIVE G. VAGINALIS (test code = 65359) NEGATIVE T. VAGINALIS (test code = 81414) NEGATIVE Tashi BoothACUTE HEPATITIS [id number] 00:00:00* Test Item Value Reference Range Interpretation Comme nts HEPATITIS A IgM (test code = 96814) NON-REACTIVE HEPATITIS B CORE IgM (test c ode = 4644) NON-REACTIVE HEPATITIS B SURF AG (test co de = 2739) NON-REACTIVE HEPATITIS C ANTIBODY (test c ode = 4675) NON-REACTIVE INTERPRETATION HEPATITIS A: (test code = 2552) (NOTE) INTERPRETATION HEPATITIS B: (test code = 43817) (NOTE) INTERPRETATION HEPATITIS C: (test code = 03997) (NOTE) Tashi [id number] 00:00:00* Test Item Value Reference Range Interpretation Comme nts RPR RESULT (test code = 3501) NON-REACTIVE RPR TITER (test code = 3500) NOT INDIC. TITER Tashi BoothHIV 1/2 4TH GEN, RFLX [id number] 00:00:00* Test Item Value Reference Range Interpretation Comme nts HIV 1/2 4TH GEN, RFLX CONF ( test code = 3514) NON-REACTIVE Tashi Marques AustinVAGINAL PATHOGENS DNA [id number] 00:00:00* Test Item Value Reference Range Interpretation Comme nts GERMAN SPECIES (test code = ) NEGATIVE G. VAGINALIS (test code = 57077) NEGATIVE T. VAGINALIS (test code = 24626) NEGATIVE Tashi BoothACUTE HEPATITIS [id number] 00:00:00* Test Item Value Reference Range Interpretation Comme nts HEPATITIS A IgM (test code = 40489) NON-REACTIVE HEPATITIS B CORE IgM (test c ode = 4644) NON-REACTIVE HEPATITIS B SURF AG (test co de = 2739) NON-REACTIVE HEPATITIS C ANTIBODY (test c ode = 4675) NON-REACTIVE INTERPRETATION HEPATITIS A: (test code = 2552) (NOTE) INTERPRETATION HEPATITIS B: (test code = 11411) (NOTE) INTERPRETATION HEPATITIS C: (test code = 66313) (NOTE) Tashi [id number] 00:00:00* Test Item Value Reference Range Interpretation Comme nts RPR RESULT (test code = 3501) NON-REACTIVE RPR TITER (test code = 3500) NOT INDIC. TITER Tashi BoothHIV 1/2 4TH GEN, RFLX [id number] 00:00:00* Test Item Value Reference Range Interpretation Comme nts HIV 1/2 4TH GEN, RFLX CONF ( test code = 3514) NON-REACTIVE Tashi Marques AustinVAGINAL PATHOGENS DNA [id number] 00:00:00* Test Item Value Reference Range Interpretation Comme nts GERMAN SPECIES (test code = 10299) NEGATIVE G. VAGINALIS (test code = 28089) NEGATIVE T. VAGINALIS (test code = 65030) NEGATIVE Tashi BoothACUTE HEPATITIS [id number] 00:00:00* Test Item Value Reference Range Interpretation Comme nts HEPATITIS A IgM (test code = 78655) NON-REACTIVE HEPATITIS B CORE IgM (test c ode = 4644) NON-REACTIVE HEPATITIS B SURF AG (test co de = 2739) NON-REACTIVE HEPATITIS C ANTIBODY (test c ode = 4675) NON-REACTIVE INTERPRETATION HEPATITIS A: (test code = 2552) (NOTE) INTERPRETATION HEPATITIS B: (test code = 13333) (NOTE) INTERPRETATION HEPATITIS C: (test code = 77576) (NOTE) Tashi [id number] 00:00:00* Test Item Value Reference Range Interpretation Comme nts RPR RESULT (test code = 3501) NON-REACTIVE RPR TITER (test code = 3500) NOT INDIC. TITER Tashi BoothHIV 1/2 4TH GEN, RFLX [id number] 00:00:00* Test Item Value Reference Range Interpretation Comme nts HIV 1/2 4TH GEN, RFLX CONF ( test code = 3514) NON-REACTIVE Tashi Marques AustinVAGINAL PATHOGENS DNA [id number] 00:00:00* Test Item Value Reference Range Interpretation Comme nts GERMAN SPECIES (test code = ) NEGATIVE G. VAGINALIS (test code = 04887) NEGATIVE T. VAGINALIS (test code = 81762) NEGATIVE Tashi BoothACUTE HEPATITIS [id number] 00:00:00* Test Item Value Reference Range Interpretation Comme nts HEPATITIS A IgM (test code = 77540) NON-REACTIVE HEPATITIS B CORE IgM (test c ode = 4644) NON-REACTIVE HEPATITIS B SURF AG (test co de = 2739) NON-REACTIVE HEPATITIS C ANTIBODY (test c ode = 4675) NON-REACTIVE INTERPRETATION HEPATITIS A: (test code = 2552) (NOTE) INTERPRETATION HEPATITIS B: (test code = 25540) (NOTE) INTERPRETATION HEPATITIS C: (test code = 63046) (NOTE) Tashi [id number] 00:00:00* Test Item Value Reference Range Interpretation Comme nts RPR RESULT (test code = 3501) NON-REACTIVE RPR TITER (test code = 3500) NOT INDIC. TITER Tashi BoothHIV 1/2 4TH GEN, RFLX [id number] 00:00:00* Test Item Value Reference Range Interpretation Comme nts HIV 1/2 4TH GEN, RFLX CONF ( test code = 3514) NON-REACTIVE Tashi BoothVAGINAL PATHOGENS DNA [id number] 00:00:00* Test Item Value Reference Range Interpretation Comme nts GERMAN SPECIES (test code = ) NEGATIVE G. VAGINALIS (test code = 42304) NEGATIVE T. VAGINALIS (test code = 81083) NEGATIVE Tashi BoothACUTE HEPATITIS [id number] 00:00:00* Test Item Value Reference Range Interpretation Comme nts HEPATITIS A IgM (test code = 62174) NON-REACTIVE HEPATITIS B CORE IgM (test c ode = 4644) NON-REACTIVE HEPATITIS B SURF AG (test co de = 2739) NON-REACTIVE HEPATITIS C ANTIBODY (test c ode = 4675) NON-REACTIVE INTERPRETATION HEPATITIS A: (test code = 2552) (NOTE) INTERPRETATION HEPATITIS B: (test code = 90904) (NOTE) INTERPRETATION HEPATITIS C: (test code = 52124) (NOTE) Tashi [id number] 00:00:00* Test Item Value Reference Range Interpretation Comme nts RPR RESULT (test code = 3501) NON-REACTIVE RPR TITER (test code = 3500) NOT INDIC. TITER Tashi BoothHIV 1/2 4TH GEN, RFLX [id number] 00:00:00* Test Item Value Reference Range Interpretation Comme nts HIV 1/2 4TH GEN, RFLX CONF ( test code = 3514) NON-REACTIVE Tashi Marques AustinVAGINAL PATHOGENS DNA [id number] 00:00:00* Test Item Value Reference Range Interpretation Comme nts GERMAN SPECIES (test code = ) NEGATIVE G. VAGINALIS (test code = 98536) NEGATIVE T. VAGINALIS (test code = 18640) NEGATIVE Tashi BoothACUTE HEPATITIS [id number] 00:00:00* Test Item Value Reference Range Interpretation Comme nts HEPATITIS A IgM (test code = 15514) NON-REACTIVE HEPATITIS B CORE IgM (test c ode = 4644) NON-REACTIVE HEPATITIS B SURF AG (test co de = 2739) NON-REACTIVE HEPATITIS C ANTIBODY (test c ode = 4675) NON-REACTIVE INTERPRETATION HEPATITIS A: (test code = 2552) (NOTE) INTERPRETATION HEPATITIS B: (test code = 05965) (NOTE) INTERPRETATION HEPATITIS C: (test code = 93140) (NOTE) Tashi [id number] 00:00:00* Test Item Value Reference Range Interpretation Comme nts RPR RESULT (test code = 3501) NON-REACTIVE RPR TITER (test code = 3500) NOT INDIC. TITER Tashi BoothHIV 1/2 4TH GEN, RFLX [id number] 00:00:00* Test Item Value Reference Range Interpretation Comme nts HIV 1/2 4TH GEN, RFLX CONF ( test code = 3514) NON-REACTIVE Tashi Marques AustinVAGINAL PATHOGENS DNA [id number] 00:00:00* Test Item Value Reference Range Interpretation Comme nts GERMAN SPECIES (test code = 38368) NEGATIVE G. VAGINALIS (test code = 78150) NEGATIVE T. VAGINALIS (test code = 76471) NEGATIVE Tashi BoothACUTE HEPATITIS [id number] 00:00:00* Test Item Value Reference Range Interpretation Comme nts HEPATITIS A IgM (test code = 29737) NON-REACTIVE HEPATITIS B CORE IgM (test c ode = 4644) NON-REACTIVE HEPATITIS B SURF AG (test co de = 2739) NON-REACTIVE HEPATITIS C ANTIBODY (test c ode = 4675) NON-REACTIVE INTERPRETATION HEPATITIS A: (test code = 2552) (NOTE) INTERPRETATION HEPATITIS B: (test code = 89057) (NOTE) INTERPRETATION HEPATITIS C: (test code = 64636) (NOTE) Tashi Rivero [id number] 13:34:12SPECIMEN NUMBER: [id number] CULTURE, URINE SPECIMEN NUMBER: [id number] SPECIMEN COMMENT: URINE SOURCE: URINE REPORT STATUS: FINAL FINAL REPORT: 01/27/2023 NO GROWTH AFTER 36 HOURS INCUBATION UNLESS OTHERWISE INDICATED, ALL TESTING PERFORMED AT [facility] [address] [place] [address] DIVISION ORDER ANALYST: KIANNA YING M.D. CLIA NUMBER [id number] [facility] [place].[id number] CULTURE, [id number] 00:00:00* Test Item Value Reference Range Interpretation Comme nts CULTURE, URINE (test code = 16062) SPECIMEN NUMBER: [id number] Tashi Rivero [id number] 00:00:00* Test Item Value Reference Range Interpretation Comme nts CULTURE, URINE (test code = 88285) SPECIMEN NUMBER: [id number] Tashi Rivero, [id number] 00:00:00* Test Item Value Reference Range Interpretation Comme nts CULTURE, URINE (test code = 97915) SPECIMEN NUMBER: [id number] Tashi Rivero [id number] 00:00:00* Test Item Value Reference Range Interpretation Comme nts CULTURE, URINE (test code = 10564) SPECIMEN NUMBER: [id number] aTshi Rivero, [id number] 00:00:00* Test Item Value Reference Range Interpretation Comme nts CULTURE, URINE (test code = 86732) SPECIMEN NUMBER: [id number] Tashi Rivero, [id number] 00:00:00* Test Item Value Reference Range Interpretation Comme nts CULTURE, URINE (test code = 02231) SPECIMEN NUMBER: [id number] Tashi Rivero, [id number] 00:00:00* Test Item Value Reference Range Interpretation Comme nts CULTURE, URINE (test code = 48536) SPECIMEN NUMBER: [id number] Tashi Rivero [id number] 00:00:00* Test Item Value Reference Range Interpretation Comme nts CULTURE, URINE (test code = 78133) SPECIMEN NUMBER: [id number] Tashi Rivero [id number] 00:00:00* Test Item Value Reference Range Interpretation Comme nts CULTURE, URINE (test code = 91041) SPECIMEN NUMBER: [id number] Tashi Rivero [id number] 10:30:50SPECIMEN NUMBER: [id number] CULTURE, URINE SPECIMEN NUMBER: [id number] SPECIMEN COMMENT: URINE SOURCE: URINE REPORT STATUS: FINAL FINAL REPORT: 01/13/2023 10-50,000 CFU/ML UROGENITAL DAHIANA PRESENT NO COMMON PATHOGENS UNLESS OTHERWISE INDICATED, ALL TESTING PERFORMED AT [facility] [address] [place] [address] DIVISION ORDER ANALYST: KIANNA YING M.D. CLIA NUMBER [id number] [facility] [place] [place]. [id number], [id number] 00:00:00* Test Item Value Reference Range Interpretation Comme nts CULTURE, URINE (test code = 53870) SPECIMEN NUMBER: [id number] Tashi Rivero [id number] 00:00:00* Test Item Value Reference Range Interpretation Comme nts CULTURE, URINE (test code = 71791) SPECIMEN NUMBER: [id number] Tashi Rivero, [id number] 00:00:00* Test Item Value Reference Range Interpretation Comme nts CULTURE, URINE (test code = 77754) SPECIMEN NUMBER: [id number] Tashi Rivero, [id number] 00:00:00* Test Item Value Reference Range Interpretation Comme nts CULTURE, URINE (test code = 04816) SPECIMEN NUMBER: [id number] Tashi Rivero, [id number] 00:00:00* Test Item Value Reference Range Interpretation Comme nts CULTURE, URINE (test code = 52793) SPECIMEN NUMBER: [id number] Tashi AustinLTEDGAR, [id number] 00:00:00* Test Item Value Reference Range Interpretation Comme nts CULTURE, URINE (test code = 55542) SPECIMEN NUMBER: [id number] Tashi AustinLTEDGAR, [id number] 00:00:00* Test Item Value Reference Range Interpretation Comme nts CULTURE, URINE (test code = 05783) SPECIMEN NUMBER: [id number] Tashi Rivero, [id number] 00:00:00* Test Item Value Reference Range Interpretation Comme nts CULTURE, URINE (test code = 54249) SPECIMEN NUMBER: [id number] Tashi Rivero, [id number] 00:00:00* Test Item Value Reference Range Interpretation Comme nts CULTURE, URINE (test code = 89226) SPECIMEN NUMBER: [id number] Tashi Rivero [id number] 13:32:58SPECIMEN NUMBER: [id number] CULTURE, URINE SPECIMEN NUMBER: [id number] SPECIMEN COMMENT: URINE SOURCE: URINE REPORT STATUS: FINAL FINAL REPORT: 08/05/2022 <10,000 CFU/ML UROGENITAL DAHIANA PRESENT NO COMMON PATHOGENSCULTURE, [id number] 00:00:00* Test Item Value Reference Range Interpretation Comme nts CULTURE, URINE (test code = 85575) SPECIMEN NUMBER: [id number] Tashi Rivero, [id number] 00:00:00* Test Item Value Reference Range Interpretation Comme nts CULTURE, URINE (test code = 33533) SPECIMEN NUMBER: [id number] Tashi AustinLTEDGAR, [id number] 00:00:00* Test Item Value Reference Range Interpretation Comme nts CULTURE, URINE (test code = 31774) SPECIMEN NUMBER: [id number] Tashi AustinLTEDGAR, [id number] 00:00:00* Test Item Value Reference Range Interpretation Comme nts CULTURE, URINE (test code = 62622) SPECIMEN NUMBER: [id number] Tashi AustinLTEDGAR, [id number] 00:00:00* Test Item Value Reference Range Interpretation Comme nts CULTURE, URINE (test code = 22232) SPECIMEN NUMBER: [id number] Tashi AustinLTURE, [id number] 00:00:00* Test Item Value Reference Range Interpretation Comme nts CULTURE, URINE (test code = 19890) SPECIMEN NUMBER: [id number] Tashi Rivero, [id number] 00:00:00* Test Item Value Reference Range Interpretation Comme nts CULTURE, URINE (test code = 86425) SPECIMEN NUMBER: [id number] Tashi Rivero, [id number] 00:00:00* Test Item Value Reference Range Interpretation Comme nts CULTURE, URINE (test code = 03295) SPECIMEN NUMBER: [id number] Tashi Rivero, [id number] 00:00:00* Test Item Value Reference Range Interpretation Comme nts CULTURE, URINE (test code = 26821) SPECIMEN NUMBER: [id number] Tashi BoothVAGINAL PATHOGENS DNA [id number] 14:53:35* Test Item Value Reference Range Interpretation Comme nts GERMAN SPECIES (test code = ) NEGATIVE NEGATIVE G. VAGINALIS (test code = 01042) NEGATIVE NEGATIVE T. VAGINALIS (test code = 07935) NEGATIVE NEGATIVE Note: The [facility] VPIII Microbial Identification Testis a DNA probe test intended for use in the detectionand identification of German species, Gardnerellavaginalis and Trichomonas vaginalis nucleic acid. [facility] has important pathology staff changes effective 08/08/2022. New pathology staff will provide uninterrupted, excellent patient care and clinical consultation. See URL: [email or web address]. UNLESS OTHERWISE INDICATED, ALL TESTING PERFORMED AT [facility] [address] [place] [id number] DIVISION ORDER ANALYST: MAVIS SHAH M.D. CLIA NUMBER [id number] [facility] [place] [place]. [id number] VAGINAL PATHOGENS DNA [id number] 00:00:00* Test Item Value Reference Range Interpretation Comme nts GERMAN SPECIES (test code = 80465) NEGATIVE G. VAGINALIS (test code = 30909) NEGATIVE T. VAGINALIS (test code = 15196) NEGATIVE Tashi Marques AustinVAGINAL PATHOGENS DNA [id number] 00:00:00* Test Item Value Reference Range Interpretation Comme nts GERMAN SPECIES (test code = 92517) NEGATIVE G. VAGINALIS (test code = 99304) NEGATIVE T. VAGINALIS (test code = 48077) NEGATIVE Tashi Marques AustinVAGINAL PATHOGENS DNA [id number] 00:00:00* Test Item Value Reference Range Interpretation Comme nts GERMAN SPECIES (test code = 26350) NEGATIVE G. VAGINALIS (test code = 75571) NEGATIVE T. VAGINALIS (test code = 54081) NEGATIVE Tashi Marques AustinVAGINAL PATHOGENS DNA [id number] 00:00:00* Test Item Value Reference Range Interpretation Comme nts GERMAN SPECIES (test code = 59503) NEGATIVE G. VAGINALIS (test code = 42466) NEGATIVE T. VAGINALIS (test code = 18631) NEGATIVE Tashi Marques AustinVAGINAL PATHOGENS DNA [id number] 00:00:00* Test Item Value Reference Range Interpretation Comme nts GERMAN SPECIES (test code = 95517) NEGATIVE G. VAGINALIS (test code = 32883) NEGATIVE T. VAGINALIS (test code = 21864) NEGATIVE Tashi Marques AustinVAGINAL PATHOGENS DNA [id number] 00:00:00* Test Item Value Reference Range Interpretation Comme nts GERMAN SPECIES (test code = 89675) NEGATIVE G. VAGINALIS (test code = 40988) NEGATIVE T. VAGINALIS (test code = 74170) NEGATIVE Tashi Marques AustinVAGINAL PATHOGENS DNA [id number] 00:00:00* Test Item Value Reference Range Interpretation Comme nts GERMAN SPECIES (test code = 64139) NEGATIVE G. VAGINALIS (test code = 90452) NEGATIVE T. VAGINALIS (test code = 24570) NEGATIVE Tashi Marques AustinVAGINAL PATHOGENS DNA [id number] 00:00:00* Test Item Value Reference Range Interpretation Comme nts GERMAN SPECIES (test code = 92940) NEGATIVE G. VAGINALIS (test code = 45783) NEGATIVE T. VAGINALIS (test code = 43457) NEGATIVE Tashi Marques AustinVAGINAL PATHOGENS DNA [id number] 00:00:00* Test Item Value Reference Range Interpretation Comme nts GERMAN SPECIES (test code = 66705) NEGATIVE G. VAGINALIS (test code = 18744) NEGATIVE T. VAGINALIS (test code = 02191) NEGATIVE Tashi BoothISABELLELTEDGAR, [id number] 10:42:37SPECIMEN NUMBER: [id number] CULTURE, URINE SPECIMEN NUMBER: [id number] SPECIMEN COMMENT: URINE SOURCE: URINE REPORT STATUS: FINAL FINAL REPORT: 07/09/2022 <10,000 CFU/ML MIXED UROGENITAL DAHIANA UNLESS OTHERWISE INDICATED, ALL TESTING PERFORMED [facility] [address] [place] [address] DIVISION ORDER ANALYST: MAVIS SHAH M.D. [place] NUMBER [id number] [facility]. [id number], [id number] 00:00:00* Test Item Value Reference Range Interpretation Comme nts CULTURE, URINE (test code = 44006) SPECIMEN NUMBER: [id number] Tashi AustinLTEDGAR, [id number] 00:00:00* Test Item Value Reference Range Interpretation Comme nts CULTURE, URINE (test code = 33019) SPECIMEN NUMBER: [id number] Tashi AustinLTEDGAR, [id number] 00:00:00* Test Item Value Reference Range Interpretation Comme nts CULTURE, URINE (test code = 94348) SPECIMEN NUMBER: [id number] Tashi AustinLTURE, [id number] 00:00:00* Test Item Value Reference Range Interpretation Comme nts CULTURE, URINE (test code = 47486) SPECIMEN NUMBER: [id number] Tashi AustinLTEDGAR, [id number] 00:00:00* Test Item Value Reference Range Interpretation Comme nts CULTURE, URINE (test code = 66336) SPECIMEN NUMBER: [id number] Tashi AustinLTEDGAR, [id number] 00:00:00* Test Item Value Reference Range Interpretation Comme nts CULTURE, URINE (test code = 70952) SPECIMEN NUMBER: [id number] Tashi AustinLTURE, [id number] 00:00:00* Test Item Value Reference Range Interpretation Comme nts CULTURE, URINE (test code = 09455) SPECIMEN NUMBER: [id number] Tashi AustinLTEDGAR, [id number] 00:00:00* Test Item Value Reference Range Interpretation Comme nts CULTURE, URINE (test code = 11696) SPECIMEN NUMBER: [id number] Tashi F AustinCULTURE, [id number] 00:00:00* Test Item Value Reference Range Interpretation Comme nts CULTURE, URINE (test code = 91299) SPECIMEN NUMBER: [id number] Tashi BoothSCR MAMM BILATERAL BILLY CAD [id number] 09:33:06 Name: Maribell : 1980 Sex: F - SCR MAMM BILATERAL BILLY CAD DIGITALBILATERAL FIRST EVER DIGITAL SCREENING MAMMOGRAM 3D/2D WITH CAD: 06/29/2022LINICAL: Asymptomatic. Digital breast tomosynthesis was performed in addition to routine CC and MLO views. Current mammographic images were evaluated by [employer] CAD (computer-aided detection) software. No prior exams were available for comparison. There are scattered fibroglandular tissues in both breasts. No suspicious mass, architectural distortion, malignant type calcification, or lymph node abnormality detected. IMPRESSION: BENIGNThere is no mammographic evidence of malignancy. Resume annual screening mammography in one year. (06/30/2023) Bernice hay/penrad:07/05/2022 09:33:06 Entry: lt - 07/05/2022 11:04:39Imaging Technologist: Evelina HARRINGTON, [facility]- FWletter sent: BIRADS 1-2 Normal Mammogram BI-RADS: 2 BenignCULTURE, URINE 2022-06-23 12:26:26SPECIMEN NUMBER: [id number] CULTURE, URINE SPECIMEN NUMBER: [id number] SPECIMEN COMMENT: URINE SOURCE: URINE REPORT STATUS: FINAL ISOLATE NUMBER 1: ORGANISM: 06/22/2022 >100,000 CFU/ML GRAM NEGATIVE BACILLI IDENTIFICATION: 06/23/2022 ESCHERICHIA COLI E. COLI AMOXICILLIN/CA SENSITIVE <=8/4AMPICILLIN RESISTANT >16CEFAZOLIN SENSITIVE <=2CEFTRIAXONE SENSITIVE <=1CIPROFLOXACIN INTERMED 2LEVOFLOXACIN SENSITIVE <=2NITROFURANTOIN SENSITIVE <=32PIP/TAZOBAC SENSITIVE &l t;=16TETRACYCLINE RESISTANT >8TOBRAMYCIN SENSITIVE <=4TRIMETH/SULFA SENSITIVE <=2/38 NOTE:NUMBERS DISPLAYED REPRESENT MINIMUM INHIBITORY CONCENTRATION (GINGER) WHICH IS EXPRESSED IN MCG/ML. UNLESS OTHERWISE INDICATED, ALL TESTING PERFORMED [facility] [address] [place] [address] DIVISION ORDER ANALYST: MAVIS SHAH M.D. IA NUMBER [id number] [facility] [place]. [id number], [id number] 00:00:00* Test Item Value Reference Range Interpretation Comme nts CULTURE, URINE (test code = 98940) SPECIMEN NUMBER: [id number] NASREEN Smith2023-01-14 00:00:00* Test Item Value Reference Range Interpretation Comme nts CULTURE, URINE (test code = 93870) SPECIMEN NUMBER: [id number] NASREEN Smith2023-01-14 00:00:00* Test Item Value Reference Range Interpretation Comme nts CULTURE, URINE (test code = 05608) SPECIMEN NUMBER: [id number] NASREEN Smiht2023-01-14 00:00:00* Test Item Value Reference Range Interpretation Comme nts CULTURE, URINE (test code = 20704) SPECIMEN NUMBER: [id number] NASREEN Smith2023-01-14 00:00:00* Test Item Value Reference Range Interpretation Comme nts CULTURE, URINE (test code = 77508) SPECIMEN NUMBER: [id number] NASREEN Smith2023-01-14 00:00:00* Test Item Value Reference Range Interpretation Comme nts CULTURE, URINE (test code = 63488) SPECIMEN NUMBER: [id number] NASREEN Smith2023-01-14 00:00:00* Test Item Value Reference Range Interpretation Comme nts CULTURE, URINE (test code = 85917) SPECIMEN NUMBER: [id number] Tashi BoothCULTEDGAR, [id number] 00:00:00* Test Item Value Reference Range Interpretation Comme nts CULTURE, URINE (test code = 77368) SPECIMEN NUMBER: [id number] Tashi Rivero, [id number] 00:00:00* Test Item Value Reference Range Interpretation Comme nts CULTURE, URINE (test code = 77312) SPECIMEN NUMBER: [id number] Tashi BoothLIPID [id number] 00:00:00* Test Item Value Reference Range Interpretation Comme nts CHOLESTEROL (test code = 2210) 194 MG/DL TRIGLYCERIDES (test code = 2232) 325 MG/DL HDL CHOLESTEROL (test code = 2220) 49 MG/DL CALC LDL CHOL (test code = 2237) 102 MG/DL RISK RATIO LDL/HDL (test cod e = 2238) 2.08 RATIO Tashi BoothVITAMIN D, 25 [id number] 00:00:00* Test Item Value Reference Range Interpretation Comme sreekanth VITAMIN D, 25 [place] (test code = 4958) 24 NG/ML Tashi BoothCBC W/AUTO [id number] 00:00:00* Test Item Value Reference Range Interpretation Comme nts WBC (test code = 1001) 7.2 K/UL RBC (test code = 1002) 4.64 M/UL HEMOGLOBIN (test code = 1003) 9.3 G/DL HEMATOCRIT (test code = 1004) 31.0 % MCV (test code = 1005) 66.8 fL MCH (test code = 1006) 20.0 PG MCHC (test code = 1007) 30.0 G/DL RDW (test code = 1038) 18.6 % NEUTROPHILS (test code = 1008) 70.8 % LYMPHOCYTES (test code = 1010) 18.7 % MONOCYTES (test code = 1011) 7.5 % EOSINOPHILS (test code = 1012) 2.2 % BASOPHILS (test code = 1013) 0.7 % IMMATURE GRANULOCYTES (test code = 1036) 0.1 % NUCLEATED RBCS (test code = 1065) 0.0 /100WBC'S PLATELET COUNT (test code = 1015) 387 K/UL ABSOLUTE NEUTROPHILS (test c ode = 1066) 5.12 K/UL ABSOLUTE LYMPHOCYTES (test c ode = 1067) 1.35 K/UL ABSOLUTE MONOCYTES (test cod e = 1068) 0.54 K/UL ABSOLUTE EOSINOPHILS (test c ode = 1040) 0.16 K/UL ABSOLUTE BASOPHILS (test cod e = 1069) 0.05 K/UL ABS IMMATURE GRANULOCYTES (t est code = 1020) 0.01 K/UL ABS NUCLEATED RBCS (test cod e = 17729) 0.00 K/UL Tashi BoothCOMPREHENSIVE METABOLIC [id number] 00:00:00* Test Item Value Reference Range Interpretation Comme nts GLUCOSE (test code = 2217) 89 MG/DL BUN (test code = 2208) 10 MG/DL CREATININE (test code = 2214) 0.96 MG/DL eGFR (2020 CKD-EPI) (test co de = 16725) 77 ML/MIN/1.73 CALC BUN/CREAT (test code = 2235) 10 RATIO SODIUM (test code = 2231) 142 MEQ/L POTASSIUM (test code = 2228) 4.2 MEQ/L CHLORIDE (test code = 2215) 105 MEQ/L CARBON DIOXIDE (test code = 2206) 23 MEQ/L CALCIUM (test code = 2209) 9.7 MG/DL PROTEIN, TOTAL (test code = 2229) 7.2 G/DL ALBUMIN (test code = 2201) 4.6 G/DL CALC GLOBULIN (test code = 2240) 2.6 G/DL CALC A/G RATIO (test code = 2234) 1.8 RATIO BILIRUBIN, TOTAL (test code = 2207) <0.2 MG/DL ALKALINE PHOSPHATASE (test code = 2204) 78 U/L AST (test code = 2218) 18 U/L ALT (test code = 2219) 16 U/L Tashi BoothHEMOGLOBIN [id number] 00:00:00* Test Item Value Reference Range Interpretation Comme nts HEMOGLOBIN A1c (test code = 68679) 5.4 % Tashi BoothLIPID [id number] 00:00:00* Test Item Value Reference Range Interpretation Comme nts CHOLESTEROL (test code = 2210) 194 MG/DL TRIGLYCERIDES (test code = 2232) 325 MG/DL HDL CHOLESTEROL (test code = 2220) 49 MG/DL CALC LDL CHOL (test code = 2237) 102 MG/DL RISK RATIO LDL/HDL (test cod e = 2238) 2.08 RATIO Tashi BoothVITAMIN D, 25 [id number] 00:00:00* Test Item Value Reference Range Interpretation Comme nts VITAMIN D, 25 [place] (test code = 4958) 24 NG/ML Tashi BoothCBC W/AUTO [id number] 00:00:00* Test Item Value Reference Range Interpretation Comme nts WBC (test code = 1001) 7.2 K/UL RBC (test code = 1002) 4.64 M/UL HEMOGLOBIN (test code = 1003) 9.3 G/DL HEMATOCRIT (test code = 1004) 31.0 % MCV (test code = 1005) 66.8 fL MCH (test code = 1006) 20.0 PG MCHC (test code = 1007) 30.0 G/DL RDW (test code = 1038) 18.6 % NEUTROPHILS (test code = 1008) 70.8 % LYMPHOCYTES (test code = 1010) 18.7 % MONOCYTES (test code = 1011) 7.5 % EOSINOPHILS (test code = 1012) 2.2 % BASOPHILS (test code = 1013) 0.7 % IMMATURE GRANULOCYTES (test code = 1036) 0.1 % NUCLEATED RBCS (test code = 1065) 0.0 /100WBC'S PLATELET COUNT (test code = 1015) 387 K/UL ABSOLUTE NEUTROPHILS (test c ode = 1066) 5.12 K/UL ABSOLUTE LYMPHOCYTES (test c ode = 1067) 1.35 K/UL ABSOLUTE MONOCYTES (test cod e = 1068) 0.54 K/UL ABSOLUTE EOSINOPHILS (test c ode = 1040) 0.16 K/UL ABSOLUTE BASOPHILS (test cod e = 1069) 0.05 K/UL ABS IMMATURE GRANULOCYTES (t est code = 1020) 0.01 K/UL ABS NUCLEATED RBCS (test cod e = 13430) 0.00 K/UL COMPREHENSIVE METABOLIC [id number] 00:00:00* Test Item Value Reference Range Interpretation Comme nts GLUCOSE (test code = 2217) 89 MG/DL BUN (test code = 2208) 10 MG/DL CREATININE (test code = 2214) 0.96 MG/DL eGFR (2021 CKD-EPI) (test co de = 95208) 77 ML/MIN/1.73 CALC BUN/CREAT (test code = 2235) 10 RATIO SODIUM (test code = 2231) 142 MEQ/L POTASSIUM (test code = 2228) 4.2 MEQ/L CHLORIDE (test code = 2215) 105 MEQ/L CARBON DIOXIDE (test code = 2206) 23 MEQ/L CALCIUM (test code = 2209) 9.7 MG/DL PROTEIN, TOTAL (test code = 2229) 7.2 G/DL ALBUMIN (test code = 2201) 4.6 G/DL CALC GLOBULIN (test code = 2240) 2.6 G/DL CALC A/G RATIO (test code = 2234) 1.8 RATIO BILIRUBIN, TOTAL (test code = 2207) <0.2 MG/DL ALKALINE PHOSPHATASE (test code = 2204) 78 U/L AST (test code = 2218) 18 U/L ALT (test code = 2219) 16 U/L CBC W/AUTO [id number] 00:00:00* Test Item Value Reference Range Interpretation Comme nts WBC (test code = 1001) 7.2 K/UL RBC (test code = 1002) 4.64 M/UL HEMOGLOBIN (test code = 1003) 9.3 G/DL HEMATOCRIT (test code = 1004) 31.0 % MCV (test code = 1005) 66.8 fL MCH (test code = 1006) 20.0 PG MCHC (test code = 1007) 30.0 G/DL RDW (test code = 1038) 18.6 % NEUTROPHILS (test code = 1008) 70.8 % LYMPHOCYTES (test code = 1010) 18.7 % MONOCYTES (test code = 1011) 7.5 % EOSINOPHILS (test code = 1012) 2.2 % BASOPHILS (test code = 1013) 0.7 % IMMATURE GRANULOCYTES (test code = 1036) 0.1 % NUCLEATED RBCS (test code = 1065) 0.0 /100WBC'S PLATELET COUNT (test code = 1015) 387 K/UL ABSOLUTE NEUTROPHILS (test c ode = 1066) 5.12 K/UL ABSOLUTE LYMPHOCYTES (test c ode = 1067) 1.35 K/UL ABSOLUTE MONOCYTES (test cod e = 1068) 0.54 K/UL ABSOLUTE EOSINOPHILS (test c ode = 1040) 0.16 K/UL ABSOLUTE BASOPHILS (test cod e = 1069) 0.05 K/UL ABS IMMATURE GRANULOCYTES (t est code = 1020) 0.01 K/UL ABS NUCLEATED RBCS (test cod e = 68298) 0.00 K/UL Tashi Marques AustinHEMOGLOBIN [id number] 00:00:00* Test Item Value Reference Range Interpretation Comme nts HEMOGLOBIN A1c (test code = 10040) 5.4 % LIPID [id number] 00:00:00* Test Item Value Reference Range Interpretation Comme nts CHOLESTEROL (test code = 2210) 194 MG/DL TRIGLYCERIDES (test code = 2232) 325 MG/DL HDL CHOLESTEROL (test code = 2220) 49 MG/DL CALC LDL CHOL (test code = 2237) 102 MG/DL RISK RATIO LDL/HDL (test cod e = 2238) 2.08 RATIO VITAMIN D, 25 [id number] 00:00:00* Test Item Value Reference Range Interpretation Comme nts VITAMIN D, 25 OH (test code = 4958) 24 NG/ML COMPREHENSIVE METABOLIC [id number] 00:00:00* Test Item Value Reference Range Interpretation Comme nts GLUCOSE (test code = 2217) 89 MG/DL BUN (test code = 2208) 10 MG/DL CREATININE (test code = 2214) 0.96 MG/DL eGFR (2020 CKD-EPI) (test co de = 14368) 77 ML/MIN/1.73 CALC BUN/CREAT (test code = 2235) 10 RATIO SODIUM (test code = 2231) 142 MEQ/L POTASSIUM (test code = 2228) 4.2 MEQ/L CHLORIDE (test code = 2215) 105 MEQ/L CARBON DIOXIDE (test code = 2206) 23 MEQ/L CALCIUM (test code = 2209) 9.7 MG/DL PROTEIN, TOTAL (test code = 2229) 7.2 G/DL ALBUMIN (test code = 2201) 4.6 G/DL CALC GLOBULIN (test code = 2240) 2.6 G/DL CALC A/G RATIO (test code = 2234) 1.8 RATIO BILIRUBIN, TOTAL (test code = 2207) <0.2 MG/DL ALKALINE PHOSPHATASE (test code = 2204) 78 U/L AST (test code = 2218) 18 U/L ALT (test code = 2219) 16 U/L Tashi BoothHEMOGLOBIN [id number] 00:00:00* Test Item Value Reference Range Interpretation Comme nts HEMOGLOBIN A1c (test code = 97528) 5.4 % Tashi BoothCBC W/AUTO [id number] 00:00:00* Test Item Value Reference Range Interpretation Comme nts WBC (test code = 1001) 7.2 K/UL RBC (test code = 1002) 4.64 M/UL HEMOGLOBIN (test code = 1003) 9.3 G/DL HEMATOCRIT (test code = 1004) 31.0 % MCV (test code = 1005) 66.8 fL MCH (test code = 1006) 20.0 PG MCHC (test code = 1007) 30.0 G/DL RDW (test code = 1038) 18.6 % NEUTROPHILS (test code = 1008) 70.8 % LYMPHOCYTES (test code = 1010) 18.7 % MONOCYTES (test code = 1011) 7.5 % EOSINOPHILS (test code = 1012) 2.2 % BASOPHILS (test code = 1013) 0.7 % IMMATURE GRANULOCYTES (test code = 1036) 0.1 % NUCLEATED RBCS (test code = 1065) 0.0 /100WBC'S PLATELET COUNT (test code = 1015) 387 K/UL ABSOLUTE NEUTROPHILS (test c ode = 1066) 5.12 K/UL ABSOLUTE LYMPHOCYTES (test c ode = 1067) 1.35 K/UL ABSOLUTE MONOCYTES (test cod e = 1068) 0.54 K/UL ABSOLUTE EOSINOPHILS (test c ode = 1040) 0.16 K/UL ABSOLUTE BASOPHILS (test cod e = 1069) 0.05 K/UL ABS IMMATURE GRANULOCYTES (t est code = 1020) 0.01 K/UL ABS NUCLEATED RBCS (test cod e = 02723) 0.00 K/UL LIPID [id number] 00:00:00* Test Item Value Reference Range Interpretation Comme nts CHOLESTEROL (test code = 2210) 194 MG/DL TRIGLYCERIDES (test code = 2232) 325 MG/DL HDL CHOLESTEROL (test code = 2220) 49 MG/DL CALC LDL CHOL (test code = 2237) 102 MG/DL RISK RATIO LDL/HDL (test cod e = 2238) 2.08 RATIO Tashi BoothVITAMIN D, 25 [id number] 00:00:00* Test Item Value Reference Range Interpretation Comme nts VITAMIN D, 25 OH (test code = 4958) 24 NG/ML Tashi BoothCOMPREHENSIVE METABOLIC [id number] 00:00:00* Test Item Value Reference Range Interpretation Comme nts GLUCOSE (test code = 2217) 89 MG/DL BUN (test code = 2208) 10 MG/DL CREATININE (test code = 2214) 0.96 MG/DL eGFR (2020 CKD-EPI) (test co de = 09502) 77 ML/MIN/1.73 CALC BUN/CREAT (test code = 2235) 10 RATIO SODIUM (test code = 2231) 142 MEQ/L POTASSIUM (test code = 2228) 4.2 MEQ/L CHLORIDE (test code = 2215) 105 MEQ/L CARBON DIOXIDE (test code = 2206) 23 MEQ/L CALCIUM (test code = 2209) 9.7 MG/DL PROTEIN, TOTAL (test code = 2229) 7.2 G/DL ALBUMIN (test code = 2201) 4.6 G/DL CALC GLOBULIN (test code = 2240) 2.6 G/DL CALC A/G RATIO (test code = 2234) 1.8 RATIO BILIRUBIN, TOTAL (test code = 2207) <0.2 MG/DL ALKALINE PHOSPHATASE (test code = 2204) 78 U/L AST (test code = 2218) 18 U/L ALT (test code = 2219) 16 U/L HEMOGLOBIN [id number] 00:00:00* Test Item Value Reference Range Interpretation Comme nts HEMOGLOBIN A1c (test code = 12610) 5.4 % LIPID [id number] 00:00:00* Test Item Value Reference Range Interpretation Comme nts CHOLESTEROL (test code = 2210) 194 MG/DL TRIGLYCERIDES (test code = 2232) 325 MG/DL HDL CHOLESTEROL (test code = 2220) 49 MG/DL CALC LDL CHOL (test code = 2237) 102 MG/DL RISK RATIO LDL/HDL (test cod e = 2238) 2.08 RATIO VITAMIN D, 25 [id number] 00:00:00* Test Item Value Reference Range Interpretation Comme nts VITAMIN D, 25 OH (test code = 4958) 24 NG/ML CBC W/AUTO [id number] 00:00:00* Test Item Value Reference Range Interpretation Comme nts WBC (test code = 1001) 7.2 K/UL RBC (test code = 1002) 4.64 M/UL HEMOGLOBIN (test code = 1003) 9.3 G/DL HEMATOCRIT (test code = 1004) 31.0 % MCV (test code = 1005) 66.8 fL MCH (test code = 1006) 20.0 PG MCHC (test code = 1007) 30.0 G/DL RDW (test code = 1038) 18.6 % NEUTROPHILS (test code = 1008) 70.8 % LYMPHOCYTES (test code = 1010) 18.7 % MONOCYTES (test code = 1011) 7.5 % EOSINOPHILS (test code = 1012) 2.2 % BASOPHILS (test code = 1013) 0.7 % IMMATURE GRANULOCYTES (test code = 1036) 0.1 % NUCLEATED RBCS (test code = 1065) 0.0 /100WBC'S PLATELET COUNT (test code = 1015) 387 K/UL ABSOLUTE NEUTROPHILS (test c ode = 1066) 5.12 K/UL ABSOLUTE LYMPHOCYTES (test c ode = 1067) 1.35 K/UL ABSOLUTE MONOCYTES (test cod e = 1068) 0.54 K/UL ABSOLUTE EOSINOPHILS (test c ode = 1040) 0.16 K/UL ABSOLUTE BASOPHILS (test cod e = 1069) 0.05 K/UL ABS IMMATURE GRANULOCYTES (t est code = 1020) 0.01 K/UL ABS NUCLEATED RBCS (test cod e = 09617) 0.00 K/UL Tashi F AustinCOMPREHENSIVE METABOLIC [id number] 00:00:00* Test Item Value Reference Range Interpretation Comme nts GLUCOSE (test code = 2217) 89 MG/DL BUN (test code = 2208) 10 MG/DL CREATININE (test code = 2214) 0.96 MG/DL eGFR (2020 CKD-EPI) (test co de = 14452) 77 ML/MIN/1.73 CALC BUN/CREAT (test code = 2235) 10 RATIO SODIUM (test code = 2231) 142 MEQ/L POTASSIUM (test code = 2228) 4.2 MEQ/L CHLORIDE (test code = 2215) 105 MEQ/L CARBON DIOXIDE (test code = 2206) 23 MEQ/L CALCIUM (test code = 2209) 9.7 MG/DL PROTEIN, TOTAL (test code = 2229) 7.2 G/DL ALBUMIN (test code = 2201) 4.6 G/DL CALC GLOBULIN (test code = 2240) 2.6 G/DL CALC A/G RATIO (test code = 2234) 1.8 RATIO BILIRUBIN, TOTAL (test code = 2207) <0.2 MG/DL ALKALINE PHOSPHATASE (test code = 2204) 78 U/L AST (test code = 2218) 18 U/L ALT (test code = 2219) 16 U/L Tashi BoothHEMOGLOBIN [id number] 00:00:00* Test Item Value Reference Range Interpretation Comme sreekanth HEMOGLOBIN A1c (test code = 42762) 5.4 % Tashi BoothLIPID [id number] 00:00:00* Test Item Value Reference Range Interpretation Comme nts CHOLESTEROL (test code = 2210) 194 MG/DL TRIGLYCERIDES (test code = 2232) 325 MG/DL HDL CHOLESTEROL (test code = 2220) 49 MG/DL CALC LDL CHOL (test code = 2237) 102 MG/DL RISK RATIO LDL/HDL (test cod e = 2238) 2.08 RATIO Tashi BoothVITAMIN D, 25 [id number] 00:00:00* Test Item Value Reference Range Interpretation Comme [facility] VITAMIN D, 25 OH (test code = 4958) 24 NG/ML Tashi BoothCBC W/AUTO [id number] 00:00:00* Test Item Value Reference Range Interpretation Comme sreekanth WBC (test code = 1001) 7.2 K/UL RBC (test code = 1002) 4.64 M/UL HEMOGLOBIN (test code = 1003) 9.3 G/DL HEMATOCRIT (test code = 1004) 31.0 % MCV (test code = 1005) 66.8 fL MCH (test code = 1006) 20.0 PG MCHC (test code = 1007) 30.0 G/DL RDW (test code = 1038) 18.6 % NEUTROPHILS (test code = 1008) 70.8 % LYMPHOCYTES (test code = 1010) 18.7 % MONOCYTES (test code = 1011) 7.5 % EOSINOPHILS (test code = 1012) 2.2 % BASOPHILS (test code = 1013) 0.7 % IMMATURE GRANULOCYTES (test code = 1036) 0.1 % NUCLEATED RBCS (test code = 1065) 0.0 /100WBC'S PLATELET COUNT (test code = 1015) 387 K/UL ABSOLUTE NEUTROPHILS (test c ode = 1066) 5.12 K/UL ABSOLUTE LYMPHOCYTES (test c ode = 1067) 1.35 K/UL ABSOLUTE MONOCYTES (test cod e = 1068) 0.54 K/UL ABSOLUTE EOSINOPHILS (test c ode = 1040) 0.16 K/UL ABSOLUTE BASOPHILS (test cod e = 1069) 0.05 K/UL ABS IMMATURE GRANULOCYTES (t est code = 1020) 0.01 K/UL ABS NUCLEATED RBCS (test cod e = 52254) 0.00 K/UL Tashi BoothCOMPREHENSIVE METABOLIC [id number] 00:00:00* Test Item Value Reference Range Interpretation Comme nts GLUCOSE (test code = 2217) 89 MG/DL BUN (test code = 2208) 10 MG/DL CREATININE (test code = 2214) 0.96 MG/DL eGFR (2020 CKD-EPI) (test co de = 98124) 77 ML/MIN/1.73 CALC BUN/CREAT (test code = 2235) 10 RATIO SODIUM (test code = 2231) 142 MEQ/L POTASSIUM (test code = 2228) 4.2 MEQ/L CHLORIDE (test code = 2215) 105 MEQ/L CARBON DIOXIDE (test code = 2206) 23 MEQ/L CALCIUM (test code = 2209) 9.7 MG/DL PROTEIN, TOTAL (test code = 2229) 7.2 G/DL ALBUMIN (test code = 2201) 4.6 G/DL CALC GLOBULIN (test code = 2240) 2.6 G/DL CALC A/G RATIO (test code = 2234) 1.8 RATIO BILIRUBIN, TOTAL (test code = 2207) <0.2 MG/DL ALKALINE PHOSPHATASE (test code = 2204) 78 U/L AST (test code = 2218) 18 U/L ALT (test code = 2219) 16 U/L Tashi Jerald LeobardoHEMOGLOBIN [id number] 00:00:00* Test Item Value Reference Range Interpretation Comme nts HEMOGLOBIN A1c (test code = 18832) 5.4 % Tashi BoothLIPID [id number] 00:00:00* Test Item Value Reference Range Interpretation Comme nts CHOLESTEROL (test code = 2210) 194 MG/DL TRIGLYCERIDES (test code = 2232) 325 MG/DL HDL CHOLESTEROL (test code = 2220) 49 MG/DL CALC LDL CHOL (test code = 2237) 102 MG/DL RISK RATIO LDL/HDL (test cod e = 2238) 2.08 RATIO Tashi BoothVITAMIN D, 25 [id number] 00:00:00* Test Item Value Reference Range Interpretation Comme sreekanth VITAMIN D, 25 OH (test code = 4958) 24 NG/ML Tashi BoothCBC W/AUTO [id number] 00:00:00* Test Item Value Reference Range Interpretation Comme nts WBC (test code = 1001) 7.2 K/UL RBC (test code = 1002) 4.64 M/UL HEMOGLOBIN (test code = 1003) 9.3 G/DL HEMATOCRIT (test code = 1004) 31.0 % MCV (test code = 1005) 66.8 fL MCH (test code = 1006) 20.0 PG MCHC (test code = 1007) 30.0 G/DL RDW (test code = 1038) 18.6 % NEUTROPHILS (test code = 1008) 70.8 % LYMPHOCYTES (test code = 1010) 18.7 % MONOCYTES (test code = 1011) 7.5 % EOSINOPHILS (test code = 1012) 2.2 % BASOPHILS (test code = 1013) 0.7 % IMMATURE GRANULOCYTES (test code = 1036) 0.1 % NUCLEATED RBCS (test code = 1065) 0.0 /100WBC'S PLATELET COUNT (test code = 1015) 387 K/UL ABSOLUTE NEUTROPHILS (test c ode = 1066) 5.12 K/UL ABSOLUTE LYMPHOCYTES (test c ode = 1067) 1.35 K/UL ABSOLUTE MONOCYTES (test cod e = 1068) 0.54 K/UL ABSOLUTE EOSINOPHILS (test c ode = 1040) 0.16 K/UL ABSOLUTE BASOPHILS (test cod e = 1069) 0.05 K/UL ABS IMMATURE GRANULOCYTES (t est code = 1020) 0.01 K/UL ABS NUCLEATED RBCS (test cod e = 02892) 0.00 K/UL Tashi BoothCOMPREHENSIVE METABOLIC [id number] 00:00:00* Test Item Value Reference Range Interpretation Comme nts GLUCOSE (test code = 2217) 89 MG/DL BUN (test code = 2208) 10 MG/DL CREATININE (test code = 2214) 0.96 MG/DL eGFR (2020 CKD-EPI) (test co de = 64039) 77 ML/MIN/1.73 CALC BUN/CREAT (test code = 2235) 10 RATIO SODIUM (test code = 2231) 142 MEQ/L POTASSIUM (test code = 2228) 4.2 MEQ/L CHLORIDE (test code = 2215) 105 MEQ/L CARBON DIOXIDE (test code = 2206) 23 MEQ/L CALCIUM (test code = 2209) 9.7 MG/DL PROTEIN, TOTAL (test code = 2229) 7.2 G/DL ALBUMIN (test code = 2201) 4.6 G/DL CALC GLOBULIN (test code = 2240) 2.6 G/DL CALC A/G RATIO (test code = 2234) 1.8 RATIO BILIRUBIN, TOTAL (test code = 2207) <0.2 MG/DL ALKALINE PHOSPHATASE (test code = 2204) 78 U/L AST (test code = 2218) 18 U/L ALT (test code = 2219) 16 U/L Tashi BoothHEMOGLOBIN [id number] 00:00:00* Test Item Value Reference Range Interpretation Comme nts HEMOGLOBIN A1c (test code = 11401) 5.4 % Tashi BoothLIPID [id number] 00:00:00* Test Item Value Reference Range Interpretation Comme nts CHOLESTEROL (test code = 2210) 194 MG/DL TRIGLYCERIDES (test code = 2232) 325 MG/DL HDL CHOLESTEROL (test code = 2220) 49 MG/DL CALC LDL CHOL (test code = 2237) 102 MG/DL RISK RATIO LDL/HDL (test cod e = 2238) 2.08 RATIO Tashi BoothVITAMIN D, 25 [id number] 00:00:00* Test Item Value Reference Range Interpretation Comme nts VITAMIN D, 25 OH (test code = 4958) 24 NG/ML Tashi BoothCBC W/AUTO [id number] 00:00:00* Test Item Value Reference Range Interpretation Comme nts WBC (test code = 1001) 7.2 K/UL RBC (test code = 1002) 4.64 M/UL HEMOGLOBIN (test code = 1003) 9.3 G/DL HEMATOCRIT (test code = 1004) 31.0 % MCV (test code = 1005) 66.8 fL MCH (test code = 1006) 20.0 PG MCHC (test code = 1007) 30.0 G/DL RDW (test code = 1038) 18.6 % NEUTROPHILS (test code = 1008) 70.8 % LYMPHOCYTES (test code = 1010) 18.7 % MONOCYTES (test code = 1011) 7.5 % EOSINOPHILS (test code = 1012) 2.2 % BASOPHILS (test code = 1013) 0.7 % IMMATURE GRANULOCYTES (test code = 1036) 0.1 % NUCLEATED RBCS (test code = 1065) 0.0 /100WBC'S PLATELET COUNT (test code = 1015) 387 K/UL ABSOLUTE NEUTROPHILS (test c ode = 1066) 5.12 K/UL ABSOLUTE LYMPHOCYTES (test c ode = 1067) 1.35 K/UL ABSOLUTE MONOCYTES (test cod e = 1068) 0.54 K/UL ABSOLUTE EOSINOPHILS (test c ode = 1040) 0.16 K/UL ABSOLUTE BASOPHILS (test cod e = 1069) 0.05 K/UL ABS IMMATURE GRANULOCYTES (t est code = 1020) 0.01 K/UL ABS NUCLEATED RBCS (test cod e = 62008) 0.00 K/UL Tashi F AustinCOMPREHENSIVE METABOLIC [id number] 00:00:00* Test Item Value Reference Range Interpretation Comme nts GLUCOSE (test code = 2217) 89 MG/DL BUN (test code = 2208) 10 MG/DL CREATININE (test code = 2214) 0.96 MG/DL eGFR (2020 CKD-EPI) (test co de = 19606) 77 ML/MIN/1.73 CALC BUN/CREAT (test code = 2235) 10 RATIO SODIUM (test code = 2231) 142 MEQ/L POTASSIUM (test code = 2228) 4.2 MEQ/L CHLORIDE (test code = 2215) 105 MEQ/L CARBON DIOXIDE (test code = 2206) 23 MEQ/L CALCIUM (test code = 2209) 9.7 MG/DL PROTEIN, TOTAL (test code = 2229) 7.2 G/DL ALBUMIN (test code = 2201) 4.6 G/DL CALC GLOBULIN (test code = 2240) 2.6 G/DL CALC A/G RATIO (test code = 2234) 1.8 RATIO BILIRUBIN, TOTAL (test code = 2207) <0.2 MG/DL ALKALINE PHOSPHATASE (test code = 2204) 78 U/L AST (test code = 2218) 18 U/L ALT (test code = 2219) 16 U/L Tashi BoothHEMOGLOBIN [id number] 00:00:00* Test Item Value Reference Range Interpretation Comme sreekanth HEMOGLOBIN A1c (test code = 38308) 5.4 % Tashi BoothLIPID [id number] 00:00:00* Test Item Value Reference Range Interpretation Comme nts CHOLESTEROL (test code = 2210) 194 MG/DL TRIGLYCERIDES (test code = 2232) 325 MG/DL HDL CHOLESTEROL (test code = 2220) 49 MG/DL CALC LDL CHOL (test code = 2237) 102 MG/DL RISK RATIO LDL/HDL (test cod e = 2238) 2.08 RATIO Tashi BoothVITAMIN D, 25 [id number] 00:00:00* Test Item Value Reference Range Interpretation Comme [facility] VITAMIN D, 25 OH (test code = 4958) 24 NG/ML Tashi BoothCBC W/AUTO [id number] 00:00:00* Test Item Value Reference Range Interpretation Comme nts WBC (test code = 1001) 7.2 K/UL RBC (test code = 1002) 4.64 M/UL HEMOGLOBIN (test code = 1003) 9.3 G/DL HEMATOCRIT (test code = 1004) 31.0 % MCV (test code = 1005) 66.8 fL MCH (test code = 1006) 20.0 PG MCHC (test code = 1007) 30.0 G/DL RDW (test code = 1038) 18.6 % NEUTROPHILS (test code = 1008) 70.8 % LYMPHOCYTES (test code = 1010) 18.7 % MONOCYTES (test code = 1011) 7.5 % EOSINOPHILS (test code = 1012) 2.2 % BASOPHILS (test code = 1013) 0.7 % IMMATURE GRANULOCYTES (test code = 1036) 0.1 % NUCLEATED RBCS (test code = 1065) 0.0 /100WBC'S PLATELET COUNT (test code = 1015) 387 K/UL ABSOLUTE NEUTROPHILS (test c ode = 1066) 5.12 K/UL ABSOLUTE LYMPHOCYTES (test c ode = 1067) 1.35 K/UL ABSOLUTE MONOCYTES (test cod e = 1068) 0.54 K/UL ABSOLUTE EOSINOPHILS (test c ode = 1040) 0.16 K/UL ABSOLUTE BASOPHILS (test cod e = 1069) 0.05 K/UL ABS IMMATURE GRANULOCYTES (t est code = 1020) 0.01 K/UL ABS NUCLEATED RBCS (test cod e = 52761) 0.00 K/UL Tashi Marques LeobardoCOMPREHENSIVE METABOLIC [id number] 00:00:00* Test Item Value Reference Range Interpretation Comme nts GLUCOSE (test code = 2217) 89 MG/DL BUN (test code = 2208) 10 MG/DL CREATININE (test code = 2214) 0.96 MG/DL eGFR (2020 CKD-EPI) (test co de = 84615) 77 ML/MIN/1.73 CALC BUN/CREAT (test code = 2235) 10 RATIO SODIUM (test code = 2231) 142 MEQ/L POTASSIUM (test code = 2228) 4.2 MEQ/L CHLORIDE (test code = 2215) 105 MEQ/L CARBON DIOXIDE (test code = 2206) 23 MEQ/L CALCIUM (test code = 2209) 9.7 MG/DL PROTEIN, TOTAL (test code = 2229) 7.2 G/DL ALBUMIN (test code = 2201) 4.6 G/DL CALC GLOBULIN (test code = 2240) 2.6 G/DL CALC A/G RATIO (test code = 2234) 1.8 RATIO BILIRUBIN, TOTAL (test code = 2207) <0.2 MG/DL ALKALINE PHOSPHATASE (test code = 2204) 78 U/L AST (test code = 2218) 18 U/L ALT (test code = 2219) 16 U/L Tashi BoothHEMOGLOBIN [id number] 00:00:00* Test Item Value Reference Range Interpretation Comme nts HEMOGLOBIN A1c (test code = 04901) 5.4 % Tashi BoothLIPID [id number] 00:00:00* Test Item Value Reference Range Interpretation Comme nts CHOLESTEROL (test code = 2210) 194 MG/DL TRIGLYCERIDES (test code = 2232) 325 MG/DL HDL CHOLESTEROL (test code = 2220) 49 MG/DL CALC LDL CHOL (test code = 2237) 102 MG/DL RISK RATIO LDL/HDL (test cod e = 2238) 2.08 RATIO Tashi BoothVITAMIN D, 25 [id number] 00:00:00* Test Item Value Reference Range Interpretation Comme nts VITAMIN D, 25 OH (test code = 4958) 24 NG/ML Tashi BoothCBC W/AUTO [id number] 00:00:00* Test Item Value Reference Range Interpretation Comme nts WBC (test code = 1001) 7.2 K/UL RBC (test code = 1002) 4.64 M/UL HEMOGLOBIN (test code = 1003) 9.3 G/DL HEMATOCRIT (test code = 1004) 31.0 % MCV (test code = 1005) 66.8 fL MCH (test code = 1006) 20.0 PG MCHC (test code = 1007) 30.0 G/DL RDW (test code = 1038) 18.6 % NEUTROPHILS (test code = 1008) 70.8 % LYMPHOCYTES (test code = 1010) 18.7 % MONOCYTES (test code = 1011) 7.5 % EOSINOPHILS (test code = 1012) 2.2 % BASOPHILS (test code = 1013) 0.7 % IMMATURE GRANULOCYTES (test code = 1036) 0.1 % NUCLEATED RBCS (test code = 1065) 0.0 /100WBC'S PLATELET COUNT (test code = 1015) 387 K/UL ABSOLUTE NEUTROPHILS (test c ode = 1066) 5.12 K/UL ABSOLUTE LYMPHOCYTES (test c ode = 1067) 1.35 K/UL ABSOLUTE MONOCYTES (test cod e = 1068) 0.54 K/UL ABSOLUTE EOSINOPHILS (test c ode = 1040) 0.16 K/UL ABSOLUTE BASOPHILS (test cod e = 1069) 0.05 K/UL ABS IMMATURE GRANULOCYTES (t est code = 1020) 0.01 K/UL ABS NUCLEATED RBCS (test cod e = 19212) 0.00 K/UL Tashi BoothCOMPREHENSIVE METABOLIC [id number] 00:00:00* Test Item Value Reference Range Interpretation Comme nts GLUCOSE (test code = 2217) 89 MG/DL BUN (test code = 2208) 10 MG/DL CREATININE (test code = 2214) 0.96 MG/DL eGFR (2020 CKD-EPI) (test co de = 43372) 77 ML/MIN/1.73 CALC BUN/CREAT (test code = 2235) 10 RATIO SODIUM (test code = 2231) 142 MEQ/L POTASSIUM (test code = 2228) 4.2 MEQ/L CHLORIDE (test code = 2215) 105 MEQ/L CARBON DIOXIDE (test code = 2206) 23 MEQ/L CALCIUM (test code = 2209) 9.7 MG/DL PROTEIN, TOTAL (test code = 222) 7.2 G/DL ALBUMIN (test code = 220) 4.6 G/DL CALC GLOBULIN (test code = 2240) 2.6 G/DL CALC A/G RATIO (test code = 2234) 1.8 RATIO BILIRUBIN, TOTAL (test code = 220) <0.2 MG/DL ALKALINE PHOSPHATASE (test code = 2204) 78 U/L AST (test code = 2218) 18 U/L ALT (test code = 2219) 16 U/L Tashi BoothHEMOGLOBIN [id number] 00:00:00* Test Item Value Reference Range Interpretation Comme [facility] HEMOGLOBIN A1c (test code = 29664) 5.4 % Tashi BoothLIPID [id number] 00:00:00* Test Item Value Reference Range Interpretation Comme nts CHOLESTEROL (test code = 2210) 194 MG/DL TRIGLYCERIDES (test code = 2232) 325 MG/DL HDL CHOLESTEROL (test code = 2220) 49 MG/DL CALC LDL CHOL (test code = 2237) 102 MG/DL RISK RATIO LDL/HDL (test cod e = 2238) 2.08 RATIO Tashi BoothVITAMIN D, 25 [id number] 00:00:00* Test Item Value Reference Range Interpretation Comme nts VITAMIN D, 25 OH (test code = 4958) 24 NG/ML Tashi BoothCBC W/AUTO [id number] 00:00:00* Test Item Value Reference Range Interpretation Comme nts WBC (test code = 1001) 7.2 K/UL RBC (test code = 1002) 4.64 M/UL HEMOGLOBIN (test code = 1003) 9.3 G/DL HEMATOCRIT (test code = 1004) 31.0 % MCV (test code = 1005) 66.8 fL MCH (test code = 1006) 20.0 PG MCHC (test code = 1007) 30.0 G/DL RDW (test code = 1038) 18.6 % NEUTROPHILS (test code = 1008) 70.8 % LYMPHOCYTES (test code = 1010) 18.7 % MONOCYTES (test code = 1011) 7.5 % EOSINOPHILS (test code = 1012) 2.2 % BASOPHILS (test code = 1013) 0.7 % IMMATURE GRANULOCYTES (test code = 1036) 0.1 % NUCLEATED RBCS (test code = 1065) 0.0 /100WBC'S PLATELET COUNT (test code = 1015) 387 K/UL ABSOLUTE NEUTROPHILS (test c ode = 1066) 5.12 K/UL ABSOLUTE LYMPHOCYTES (test c ode = 1067) 1.35 K/UL ABSOLUTE MONOCYTES (test cod e = 1068) 0.54 K/UL ABSOLUTE EOSINOPHILS (test c ode = 1040) 0.16 K/UL ABSOLUTE BASOPHILS (test cod e = 1069) 0.05 K/UL ABS IMMATURE GRANULOCYTES (t est code = 1020) 0.01 K/UL ABS NUCLEATED RBCS (test cod e = 17263) 0.00 K/UL Tashi Jerald LeobardoCOMPREHENSIVE METABOLIC [id number] 00:00:00* Test Item Value Reference Range Interpretation Comme nts GLUCOSE (test code = 2217) 89 MG/DL BUN (test code = 2208) 10 MG/DL CREATININE (test code = 2214) 0.96 MG/DL eGFR (2020 CKD-EPI) (test co de = 77510) 77 ML/MIN/1.73 CALC BUN/CREAT (test code = 2235) 10 RATIO SODIUM (test code = 2231) 142 MEQ/L POTASSIUM (test code = 2228) 4.2 MEQ/L CHLORIDE (test code = 2215) 105 MEQ/L CARBON DIOXIDE (test code = 2206) 23 MEQ/L CALCIUM (test code = 2209) 9.7 MG/DL PROTEIN, TOTAL (test code = 2229) 7.2 G/DL ALBUMIN (test code = 2201) 4.6 G/DL CALC GLOBULIN (test code = 2240) 2.6 G/DL CALC A/G RATIO (test code = 2234) 1.8 RATIO BILIRUBIN, TOTAL (test code = 2207) <0.2 MG/DL ALKALINE PHOSPHATASE (test code = 2204) 78 U/L AST (test code = 2218) 18 U/L ALT (test code = 2219) 16 U/L Tashi BoothHEMOGLOBIN [id number] 00:00:00* Test Item Value Reference Range Interpretation Comme nts HEMOGLOBIN A1c (test code = 71387) 5.4 % Tashi Rivero, [id number] 09:51:37SPECIMEN NUMBER: [id number] CULTURE, URINE SPECIMEN NUMBER: [id number] SPECIMEN COMMENT: URINE SOURCE: URINE REPORT STATUS: FINAL FINAL REPORT: 03/03/2022 10-50,000 CFU/ML MIXED UROGENITAL DAHIANA UNLESSOTHERWISE INDICATED, ALL TESTING PERFORMED ATCLINICAL PATHOLOGY [employer] [address] [place] [address] DIVISION ORDER ANALYST: MAVIS SHAH M.D. CLIA NUMBER [id number] [facility] [place]. [id number], [id number] 00:00:00* Test Item Value Reference Range Interpretation Comme nts CULTURE, URINE (test code = 56275) SPECIMEN NUMBER: [id number] Tashi Rivero, [id number] 00:00:00* Test Item Value Reference Range Interpretation Comme nts CULTURE, URINE (test code = 08533) SPECIMEN NUMBER: [id number] CULTURE, [id number] 00:00:00* Test Item Value Reference Range Interpretation Comme nts CULTURE, URINE (test code = 70674) SPECIMEN NUMBER: [id number] CULTURE, [id number] 00:00:00* Test Item Value Reference Range Interpretation Comme nts CULTURE, URINE (test code = 52987) SPECIMEN NUMBER: [id number] Tashi AustinLTEDGAR, [id number] 00:00:00* Test Item Value Reference Range Interpretation Comme nts CULTURE, URINE (test code = 88458) SPECIMEN NUMBER: [id number] CULTURE, [id number] 00:00:00* Test Item Value Reference Range Interpretation Comme nts CULTURE, URINE (test code = 47004) SPECIMEN NUMBER: [id number] Tashi Rivero [id number] 00:00:00* Test Item Value Reference Range Interpretation Comme nts CULTURE, URINE (test code = 22475) SPECIMEN NUMBER: [id number] Tashi Rivero [id number] 00:00:00* Test Item Value Reference Range Interpretation Comme nts CULTURE, URINE (test code = 39260) SPECIMEN NUMBER: [id number] Tashi Rivero [id number] 00:00:00* Test Item Value Reference Range Interpretation Comme nts CULTURE, URINE (test code = 77912) SPECIMEN NUMBER: [id number] Tashi Rivero [id number] 00:00:00* Test Item Value Reference Range Interpretation Comme nts CULTURE, URINE (test code = 15684) SPECIMEN NUMBER: [id number] NASREEN Smith2022-09-24 00:00:00* Test Item Value Reference Range Interpretation Comme nts CULTURE, URINE (test code = 25642) SPECIMEN NUMBER: [id number] NASREEN Smith2022-09-24 00:00:00* Test Item Value Reference Range Interpretation Comme nts CULTURE, URINE (test code = 14382) SPECIMEN NUMBER: [id number] NASREEN Smith2022-03-11 11:07:11SPECIMEN NUMBER: [id number] CULTURE, URINE SPECIMEN NUMBER: [id number] SPECIMEN COMMENT: URINE SOURCE: URINE REPORT STATUS: FINAL FINAL REPORT: 08/18/2021 10-50,000 CFU/ML UROGENITAL DAHIANA PRESENT NO COMMON PATHOGENS UNLESS OTHERWISE INDICATED, ALL TESTING [facility] [address] [place] [address] DIVISION ORDER ANALYST: MAVIS SHAH M.D. CLIA NUMBER [id number] [facility] [place] [id number], [id number] 00:00:00* Test Item Value Reference Range Interpretation Comme nts CULTURE, URINE (test code = 89588) SPECIMEN NUMBER: [id number] Tashi Rivero [id number] 00:00:00* Test Item Value Reference Range Interpretation Comme nts CULTURE, URINE (test code = 07814) SPECIMEN NUMBER: [id number] CULTURE, [id number] 00:00:00* Test Item Value Reference Range Interpretation Comme nts CULTURE, URINE (test code = 08967) SPECIMEN NUMBER: [id number] CULTURE, [id number] 00:00:00* Test Item Value Reference Range Interpretation Comme nts CULTURE, URINE (test code = 72298) SPECIMEN NUMBER: [id number] CULTURE, [id number] 00:00:00* Test Item Value Reference Range Interpretation Comme nts CULTURE, URINE (test code = 71115) SPECIMEN NUMBER: [id number] Tashi AustinLTEDGAR, [id number] 00:00:00* Test Item Value Reference Range Interpretation Comme nts CULTURE, URINE (test code = 77952) SPECIMEN NUMBER: [id number] CULTURE, [id number] 00:00:00* Test Item Value Reference Range Interpretation Comme nts CULTURE, URINE (test code = 78955) SPECIMEN NUMBER: [id number] Tashi AustinLTEDGAR, [id number] 00:00:00* Test Item Value Reference Range Interpretation Comme nts CULTURE, URINE (test code = 70689) SPECIMEN NUMBER: [id number] CULTURE, [id number] 00:00:00* Test Item Value Reference Range Interpretation Comme nts CULTURE, URINE (test code = 63545) SPECIMEN NUMBER: [id number] Tashi AustinLTURE, [id number] 00:00:00* Test Item Value Reference Range Interpretation Comme nts CULTURE, URINE (test code = 66597) SPECIMEN NUMBER: [id number] Tashi BoothCULTURE, [id number] 00:00:00* Test Item Value Reference Range Interpretation Comme nts CULTURE, URINE (test code = 44377) SPECIMEN NUMBER: [id number] Tashi AustinLTEDGAR, [id number] 00:00:00* Test Item Value Reference Range Interpretation Comme nts CULTURE, URINE (test code = 84595) SPECIMEN NUMBER: [id number] Tashi BoothCULTURE, [id number] 00:00:00* Test Item Value Reference Range Interpretation Comme nts CULTURE, URINE (test code = 69496) SPECIMEN NUMBER: [id number] Tashi Rivero, [id number] 00:00:00* Test Item Value Reference Range Interpretation Comme nts CULTURE, URINE (test code = 36591) SPECIMEN NUMBER: [id number] Tashi Rivero, [id number] 00:00:00* Test Item Value Reference Range Interpretation Comme nts CULTURE, URINE (test code = 61504) SPECIMEN NUMBER: [id number] CULTURE, [id number] 00:00:00* Test Item Value Reference Range Interpretation Comme nts CULTURE, URINE (test code = 19922) SPECIMEN NUMBER: [id number] HERMELINDO, [id number] 00:00:00* Test Item Value Reference Range Interpretation Comme nts CULTURE, URINE (test code = 88206) SPECIMEN NUMBER: [id number] Tashi Rivero, [id number] 00:00:00* Test Item Value Reference Range Interpretation Comme nts CULTURE, URINE (test code = 22113) SPECIMEN NUMBER: [id number] CULTURE, [id number] 00:00:00* Test Item Value Reference Range Interpretation Comme nts CULTURE, URINE (test code = 74535) SPECIMEN NUMBER: [id number] CULTURE, [id number] 00:00:00* Test Item Value Reference Range Interpretation Comme nts CULTURE, URINE (test code = 40267) SPECIMEN NUMBER: [id number] Tashi Rivero, [id number] 00:00:00* Test Item Value Reference Range Interpretation Comme nts CULTURE, URINE (test code = 94715) SPECIMEN NUMBER: [id number] CULTURE, [id number] 00:00:00* Test Item Value Reference Range Interpretation Comme nts CULTURE, URINE (test code = 69147) SPECIMEN NUMBER: [id number] Tashi Rivero, [id number] 00:00:00* Test Item Value Reference Range Interpretation Comme nts CULTURE, URINE (test code = 58191) SPECIMEN NUMBER: [id number] Tashi AustinLTEDGAR, [id number] 00:00:00* Test Item Value Reference Range Interpretation Comme nts CULTURE, URINE (test code = 24263) SPECIMEN NUMBER: [id number] Tashi Rivero [id number] 00:00:00* Test Item Value Reference Range Interpretation Comme nts CULTURE, URINE (test code = 90909) SPECIMEN NUMBER: [id number] Tashi Rivero [id number] 00:00:00* Test Item Value Reference Range Interpretation Comme nts CULTURE, URINE (test code = 76191) SPECIMEN NUMBER: [id number] Tashi Rivero [id number] 00:00:00* Test Item Value Reference Range Interpretation Comme nts CULTURE, URINE (test code = 72694) SPECIMEN NUMBER: [id number] Tashi Rivero [id number] 00:00:00* Test Item Value Reference Range Interpretation Comme nts CULTURE, URINE (test code = 61487) SPECIMEN NUMBER: [id number] Tashi Rivero [id number] 00:00:00* Test Item Value Reference Range Interpretation Comme nts CULTURE, URINE (test code = 18964) SPECIMEN NUMBER: [id number] Tashi Rivero [id number] 00:00:00* Test Item Value Reference Range Interpretation Comme nts CULTURE, URINE (test code = 41802) SPECIMEN NUMBER: [id number] CULTURE, [id number] 00:00:00* Test Item Value Reference Range Interpretation Comme nts CULTURE, URINE (test code = 21061) SPECIMEN NUMBER: [id number] CULTURE, [id number] 00:00:00* Test Item Value Reference Range Interpretation Comme nts CULTURE, URINE (test code = 94865) SPECIMEN NUMBER: [id number] CULTURE, [id number] 00:00:00* Test Item Value Reference Range Interpretation Comme nts CULTURE, URINE (test code = 59560) SPECIMEN NUMBER: [id number] Tashi AustinLTEDGAR, [id number] 00:00:00* Test Item Value Reference Range Interpretation Comme nts CULTURE, URINE (test code = 31970) SPECIMEN NUMBER: [id number] CULTURE, [id number] 00:00:00* Test Item Value Reference Range Interpretation Comme nts CULTURE, URINE (test code = 32739) SPECIMEN NUMBER: [id number] CULTURE, [id number] 00:00:00* Test Item Value Reference Range Interpretation Comme nts CULTURE, URINE (test code = 08028) SPECIMEN NUMBER: [id number] Tashi AustinLTEDGAR, [id number] 00:00:00* Test Item Value Reference Range Interpretation Comme nts CULTURE, URINE (test code = 08528) SPECIMEN NUMBER: [id number] Tashi AustinLTEDGAR, [id number] 00:00:00* Test Item Value Reference Range Interpretation Comme nts CULTURE, URINE (test code = 07539) SPECIMEN NUMBER: [id number] Tashi Rivero, [id number] 00:00:00* Test Item Value Reference Range Interpretation Comme nts CULTURE, URINE (test code = 59355) SPECIMEN NUMBER: [id number] Tashi AustinLTEDGAR, [id number] 00:00:00* Test Item Value Reference Range Interpretation Comme nts CULTURE, URINE (test code = 87702) SPECIMEN NUMBER: [id number] Tashi AustinLTEDGAR, [id number] 00:00:00* Test Item Value Reference Range Interpretation Comme nts CULTURE, URINE (test code = 16608) SPECIMEN NUMBER: [id number] Tashi Rivero, [id number] 00:00:00* Test Item Value Reference Range Interpretation Comme nts CULTURE, URINE (test code = 46662) SPECIMEN NUMBER: [id number] Tashi AustinLTEDGAR, [id number] 00:00:00* Test Item Value Reference Range Interpretation Comme nts CULTURE, URINE (test code = 24230) SPECIMEN NUMBER: [id number] CULTURE, [id number] 00:00:00* Test Item Value Reference Range Interpretation Comme nts CULTURE, URINE (test code = 54016) SPECIMEN NUMBER: [id number] Tashi AustinLTEDGAR, [id number] 00:00:00* Test Item Value Reference Range Interpretation Comme nts CULTURE, URINE (test code = 54010) SPECIMEN NUMBER: [id number] CULTURE, [id number] 00:00:00* Test Item Value Reference Range Interpretation Comme nts CULTURE, URINE (test code = 99793) SPECIMEN NUMBER: [id number] CULTURE, [id number] 00:00:00* Test Item Value Reference Range Interpretation Comme nts CULTURE, URINE (test code = 43139) SPECIMEN NUMBER: [id number] Tashi Marques AustinCULTURE, [id number] 00:00:00* Test Item Value Reference Range Interpretation Comme nts CULTURE, URINE (test code = 38210) SPECIMEN NUMBER: [id number] CULTURE, [id number] 00:00:00* Test Item Value Reference Range Interpretation Comme nts CULTURE, URINE (test code = 86427) SPECIMEN NUMBER: [id number] CULTURE, [id number] 00:00:00* Test Item Value Reference Range Interpretation Comme nts CULTURE, URINE (test code = 00719) SPECIMEN NUMBER: [id number] Tashi Marques AustinCULTURE, [id number] 00:00:00* Test Item Value Reference Range Interpretation Comme nts CULTURE, URINE (test code = 55847) SPECIMEN NUMBER: [id number] Tashi BoothCULTURE, [id number] 00:00:00* Test Item Value Reference Range Interpretation Comme nts CULTURE, URINE (test code = 56956) SPECIMEN NUMBER: [id number] Tashi BoothCULTURE, [id number] 00:00:00* Test Item Value Reference Range Interpretation Comme nts CULTURE, URINE (test code = 01600) SPECIMEN NUMBER: [id number] Tashi Marques AustinCULTURE, [id number] 00:00:00* Test Item Value Reference Range Interpretation Comme nts CULTURE, URINE (test code = 54845) SPECIMEN NUMBER: [id number] Tashi Marques AustinCULTURE, [id number] 00:00:00* Test Item Value Reference Range Interpretation Comme nts CULTURE, URINE (test code = 93115) SPECIMEN NUMBER: [id number] Tashi BoothCULTURE, [id number] 00:00:00* Test Item Value Reference Range Interpretation Comme nts CULTURE, URINE (test code = 79723) SPECIMEN NUMBER: [id number] Tashi BoothCULTURE, URINE [ADDED]2019-08-23 00:00:00* Test Item Value Reference Range Interpretation Comme nts CULTURE, URINE (test code = 61219) SPECIMEN NUMBER: [id number] CULTURE, URINE [ADDED]2019-08-23 00:00:00* Test Item Value Reference Range Interpretation Comme nts CULTURE, URINE (test code = 45113) SPECIMEN NUMBER: [id number] CULTURE, URINE [ADDED]2019-08-23 00:00:00* Test Item Value Reference Range Interpretation Comme nts CULTURE, URINE (test code = 94408) SPECIMEN NUMBER: [id number] Tashi Marques AustinCULTURE, URINE [ADDED]2019-08-23 00:00:00* Test Item Value Reference Range Interpretation Comme nts CULTURE, URINE (test code = 36298) SPECIMEN NUMBER: [id number] CULTURE, URINE [ADDED]2019-08-23 00:00:00* Test Item Value Reference Range Interpretation Comme nts CULTURE, URINE (test code = 49488) SPECIMEN NUMBER: [id number] CULTURE, URINE [ADDED]2019-08-23 00:00:00* Test Item Value Reference Range Interpretation Comme nts CULTURE, URINE (test code = 47305) SPECIMEN NUMBER: [id number] Tashi Marques AustinCULTURE, URINE [ADDED]2019-08-23 00:00:00* Test Item Value Reference Range Interpretation Comme nts CULTURE, URINE (test code = 78174) SPECIMEN NUMBER: [id number] CULTURE, URINE [ADDED]2019-08-23 00:00:00* Test Item Value Reference Range Interpretation Comme nts CULTURE, URINE (test code = 08738) SPECIMEN NUMBER: [id number] Tashi Marques AustinCULTURE, URINE [ADDED]2019-08-23 00:00:00* Test Item Value Reference Range Interpretation Comme nts CULTURE, URINE (test code = 38576) SPECIMEN NUMBER: [id number] Tashi Marques AustinCULTURE, URINE [ADDED]2019-08-23 00:00:00* Test Item Value Reference Range Interpretation Comme nts CULTURE, URINE (test code = 12717) SPECIMEN NUMBER: [id number] Tashi Marques AustinCULTURE, URINE [ADDED]2019-08-23 00:00:00* Test Item Value Reference Range Interpretation Comme nts CULTURE, URINE (test code = 61675) SPECIMEN NUMBER: [id number] Tashi Marques AustinCULTURE, URINE [ADDED]2019-08-23 00:00:00* Test Item Value Reference Range Interpretation Comme nts CULTURE, URINE (test code = 37925) SPECIMEN NUMBER: [id number] Tashi Marques AustinCULTURE, URINE [ADDED]2019-08-23 00:00:00* Test Item Value Reference Range Interpretation Comme nts CULTURE, URINE (test code = 24111) SPECIMEN NUMBER: [id number] Tashi Marques AustinCULTURE, URINE [ADDED]2019-08-23 00:00:00* Test Item Value Reference Range Interpretation Comme nts CULTURE, URINE (test code = 69711) SPECIMEN NUMBER: [id number] Tashi Marques AustinVAGINAL PATHOGENS DNA [id number] 00:00:00* Test Item Value Reference Range Interpretation Comme nts GERMAN SPECIES (test code = ) NEGATIVE G. VAGINALIS (test code = 87320) NEGATIVE T. VAGINALIS (test code = 53042) NEGATIVE VAGINAL PATHOGENS DNA [id number] 00:00:00* Test Item Value Reference Range Interpretation Comme nts GERMAN SPECIES (test code = 88778) NEGATIVE G. VAGINALIS (test code = 87349) NEGATIVE T. VAGINALIS (test code = 55573) NEGATIVE Tashi F AustinVAGINAL PATHOGENS DNA [id number] 00:00:00* Test Item Value Reference Range Interpretation Comme nts GERMAN SPECIES (test code = 21777) NEGATIVE G. VAGINALIS (test code = 92351) NEGATIVE T. VAGINALIS (test code = 01866) NEGATIVE VAGINAL PATHOGENS DNA [id number] 00:00:00* Test Item Value Reference Range Interpretation Comme nts GERMAN SPECIES (test code = 52539) NEGATIVE G. VAGINALIS (test code = 12099) NEGATIVE T. VAGINALIS (test code = 57920) NEGATIVE VAGINAL PATHOGENS DNA [id number] 00:00:00* Test Item Value Reference Range Interpretation Comme nts GERMAN SPECIES (test code = 00232) NEGATIVE G. VAGINALIS (test code = 90886) NEGATIVE T. VAGINALIS (test code = 09129) NEGATIVE Tashi F AustinVAGINAL PATHOGENS DNA [id number] 00:00:00* Test Item Value Reference Range Interpretation Comme nts GERMAN SPECIES (test code = 65811) NEGATIVE G. VAGINALIS (test code = 68472) NEGATIVE T. VAGINALIS (test code = 58885) NEGATIVE VAGINAL PATHOGENS DNA [id number] 00:00:00* Test Item Value Reference Range Interpretation Comme nts GERMAN SPECIES (test code = 96417) NEGATIVE G. VAGINALIS (test code = 29109) NEGATIVE T. VAGINALIS (test code = 40021) NEGATIVE VAGINAL PATHOGENS DNA [id number] 00:00:00* Test Item Value Reference Range Interpretation Comme nts GERMAN SPECIES (test code = 99869) NEGATIVE G. VAGINALIS (test code = 71384) NEGATIVE T. VAGINALIS (test code = 38219) NEGATIVE Tashi F AustinVAGINAL PATHOGENS DNA [id number] 00:00:00* Test Item Value Reference Range Interpretation Comme nts GERMAN SPECIES (test code = 35517) NEGATIVE G. VAGINALIS (test code = 15402) NEGATIVE T. VAGINALIS (test code = 71756) NEGATIVE Tashi F AustinVAGINAL PATHOGENS DNA [id number] 00:00:00* Test Item Value Reference Range Interpretation Comme nts GERMAN SPECIES (test code = 33788) NEGATIVE G. VAGINALIS (test code = 75093) NEGATIVE T. VAGINALIS (test code = 26022) NEGATIVE Tashi F AustinVAGINAL PATHOGENS DNA [id number] 00:00:00* Test Item Value Reference Range Interpretation Comme nts GERMAN SPECIES (test code = 20866) NEGATIVE G. VAGINALIS (test code = 73487) NEGATIVE T. VAGINALIS (test code = 28452) NEGATIVE Tashi F AustinVAGINAL PATHOGENS DNA [id number] 00:00:00* Test Item Value Reference Range Interpretation Comme nts GERMAN SPECIES (test code = 85237) NEGATIVE G. VAGINALIS (test code = 70116) NEGATIVE T. VAGINALIS (test code = 89267) NEGATIVE Tashi F AustinVAGINAL PATHOGENS DNA [id number] 00:00:00* Test Item Value Reference Range Interpretation Comme nts GERMAN SPECIES (test code = 50020) NEGATIVE G. VAGINALIS (test code = 43943) NEGATIVE T. VAGINALIS (test code = 36270) NEGATIVE Tashi F AustinVAGINAL PATHOGENS DNA [id number] 00:00:00* Test Item Value Reference Range Interpretation Comme nts GERMAN SPECIES (test code = 84516) NEGATIVE G. VAGINALIS (test code = ) NEGATIVE T. VAGINALIS (test code = 96334) NEGATIVE Tashi AustinLTURE, [id number] 00:00:00* Test Item Value Reference Range Interpretation Comme nts CULTURE, URINE (test code = 22733) SPECIMEN NUMBER: [id number] CULTURE, [id number] 00:00:00* Test Item Value Reference Range Interpretation Comme nts CULTURE, URINE (test code = 93904) SPECIMEN NUMBER: [id number] Tashi BoothCULTURE, [id number] 00:00:00* Test Item Value Reference Range Interpretation Comme nts CULTURE, URINE (test code = 86868) SPECIMEN NUMBER: [id number] CULTURE, [id number] 00:00:00* Test Item Value Reference Range Interpretation Comme nts CULTURE, URINE (test code = 77118) SPECIMEN NUMBER: [id number] CULTURE, [id number] 00:00:00* Test Item Value Reference Range Interpretation Comme nts CULTURE, URINE (test code = 24516) SPECIMEN NUMBER: [id number] Tashi BoothCULTURE, [id number] 00:00:00* Test Item Value Reference Range Interpretation Comme nts CULTURE, URINE (test code = 79464) SPECIMEN NUMBER: [id number] CULTURE, [id number] 00:00:00* Test Item Value Reference Range Interpretation Comme nts CULTURE, URINE (test code = 96035) SPECIMEN NUMBER: [id number] Tashi BoothCULTURE, [id number] 00:00:00* Test Item Value Reference Range Interpretation Comme nts CULTURE, URINE (test code = 00828) SPECIMEN NUMBER: [id number] CULTURE, [id number] 00:00:00* Test Item Value Reference Range Interpretation Comme nts CULTURE, URINE (test code = 68854) SPECIMEN NUMBER: [id number] Tashi BoothCULTURE, [id number] 00:00:00* Test Item Value Reference Range Interpretation Comme nts CULTURE, URINE (test code = 30689) SPECIMEN NUMBER: [id number] Tashi Rivero [id number] 00:00:00* Test Item Value Reference Range Interpretation Comme nts CULTURE, URINE (test code = 97438) SPECIMEN NUMBER: [id number] Tashi Rivero [id number] 00:00:00* Test Item Value Reference Range Interpretation Comme nts CULTURE, URINE (test code = 44469) SPECIMEN NUMBER: [id number] Tashi Rivero [id number] 00:00:00* Test Item Value Reference Range Interpretation Comme nts CULTURE, URINE (test code = 74438) SPECIMEN NUMBER: [id number] Tashi Rivero [id number] 00:00:00* Test Item Value Reference Range Interpretation Comme nts CULTURE, URINE (test code = 51416) SPECIMEN NUMBER: [id number] Tashi Rivero [id number] 00:00:00* Test Item Value Reference Range Interpretation Comme nts CULTURE, URINE (test code = 01097) SPECIMEN NUMBER: [id number] CULTURE, [id number] 00:00:00* Test Item Value Reference Range Interpretation Comme nts CULTURE, URINE (test code = 02868) SPECIMEN NUMBER: [id number] CULTURE, [id number] 00:00:00* Test Item Value Reference Range Interpretation Comme nts CULTURE, URINE (test code = 55076) SPECIMEN NUMBER: [id number] Tashi Rivero, [id number] 00:00:00* Test Item Value Reference Range Interpretation Comme nts CULTURE, URINE (test code = 03907) SPECIMEN NUMBER: [id number] CULTURE, [id number] 00:00:00* Test Item Value Reference Range Interpretation Comme nts CULTURE, URINE (test code = 27805) SPECIMEN NUMBER: [id number] CULTURE, [id number] 00:00:00* Test Item Value Reference Range Interpretation Comme nts CULTURE, URINE (test code = 10013) SPECIMEN NUMBER: [id number] Tashi AustinLTEDGAR, [id number] 00:00:00* Test Item Value Reference Range Interpretation Comme nts CULTURE, URINE (test code = 96546) SPECIMEN NUMBER: [id number] CULTURE, [id number] 00:00:00* Test Item Value Reference Range Interpretation Comme nts CULTURE, URINE (test code = 17180) SPECIMEN NUMBER: [id number] Tashi Rivero [id number] 00:00:00* Test Item Value Reference Range Interpretation Comme nts CULTURE, URINE (test code = 34942) SPECIMEN NUMBER: [id number] Tashi Rivero [id number] 00:00:00* Test Item Value Reference Range Interpretation Comme nts CULTURE, URINE (test code = 93368) SPECIMEN NUMBER: [id number] Tashi Rivero [id number] 00:00:00* Test Item Value Reference Range Interpretation Comme nts CULTURE, URINE (test code = 14087) SPECIMEN NUMBER: [id number] Tashi Rivero [id number] 00:00:00* Test Item Value Reference Range Interpretation Comme nts CULTURE, URINE (test code = 86841) SPECIMEN NUMBER: [id number] Tashi Rivero [id number] 00:00:00* Test Item Value Reference Range Interpretation Comme nts CULTURE, URINE (test code = 22994) SPECIMEN NUMBER: [id number] NASREEN Smith2019-06-30 00:00:00* Test Item Value Reference Range Interpretation Comme nts CULTURE, URINE (test code = 50887) SPECIMEN NUMBER: [id number] [facility]TRIST[facility] [id number] 00:00:00* Test Item Value Reference Range Interpretation Comme nts WBC (test code = 1001) TEST NOT PERFORME D K/UL RBC (test code = 1002) TEST NOT PERFORME D M/UL HEMOGLOBIN (test code = 1003) TEST NOT PERFORMED G/DL HEMATOCRIT (test code = 1004) TEST NOT PERFORMED % MCV (test code = 1005) TEST NOT PERFORMED fL MCH (test code = 1006) TEST NOT PERFORMED PG MCHC (test code = 1007) TEST NOT PERFORM ED G/DL RDW (test code = 1038) TEST NOT PERFORMED % NEUTROPHILS (test code = 1008) TEST NOT PERFORMED % LYMPHOCYTES (test code = 1010) TEST NOT PERFORMED % MONOCYTES (test code = 1011) TEST NOT PERFORMED % EOSINOPHILS (test code = 1012) TEST NOT PERFORMED % BASOPHILS (test code = 1013) TEST NOT PERFORMED % PLATELET COUNT (test code = 1015) TEST NOT PERFORMED K/UL CBC W/AUTO [id number] 00:00:00* Test Item Value Reference Range Interpretation Comme nts WBC (test code = 1001) TEST NOT PERFORME D K/UL RBC (test code = 1002) TEST NOT PERFORME D M/UL HEMOGLOBIN (test code = 1003) TEST NOT PERFORMED G/DL HEMATOCRIT (test code = 1004) TEST NOT PERFORMED % MCV (test code = 1005) TEST NOT PERFORMED fL MCH (test code = 1006) TEST NOT PERFORMED PG MCHC (test code = 1007) TEST NOT PERFORM ED G/DL RDW (test code = 1038) TEST NOT PERFORMED % NEUTROPHILS (test code = 1008) TEST NOT PERFORMED % LYMPHOCYTES (test code = 1010) TEST NOT PERFORMED % MONOCYTES (test code = 1011) TEST NOT PERFORMED % EOSINOPHILS (test code = 1012) TEST NOT PERFORMED % BASOPHILS (test code = 1013) TEST NOT PERFORMED % PLATELET COUNT (test code = 1015) TEST NOT PERFORMED K/UL CBC W/AUTO [id number] 00:00:00* Test Item Value Reference Range Interpretation Comme nts WBC (test code = 1001) TEST NOT PERFORME D K/UL RBC (test code = 1002) TEST NOT PERFORME D M/UL HEMOGLOBIN (test code = 1003) TEST NOT PERFORMED G/DL HEMATOCRIT (test code = 1004) TEST NOT PERFORMED % MCV (test code = 1005) TEST NOT PERFORMED fL MCH (test code = 1006) TEST NOT PERFORMED PG MCHC (test code = 1007) TEST NOT PERFORM ED G/DL RDW (test code = 1038) TEST NOT PERFORMED % NEUTROPHILS (test code = 1008) TEST NOT PERFORMED % LYMPHOCYTES (test code = 1010) TEST NOT PERFORMED % MONOCYTES (test code = 1011) TEST NOT PERFORMED % EOSINOPHILS (test code = 1012) TEST NOT PERFORMED % BASOPHILS (test code = 1013) TEST NOT PERFORMED % PLATELET COUNT (test code = 1015) TEST NOT PERFORMED K/UL Tashi BoothCBC W/AUTO [id number] 00:00:00* Test Item Value Reference Range Interpretation Comme nts WBC (test code = 1001) TEST NOT PERFORME D K/UL RBC (test code = 1002) TEST NOT PERFORME D M/UL HEMOGLOBIN (test code = 1003) TEST NOT PERFORMED G/DL HEMATOCRIT (test code = 1004) TEST NOT PERFORMED % MCV (test code = 1005) TEST NOT PERFORMED fL MCH (test code = 1006) TEST NOT PERFORMED PG MCHC (test code = 1007) TEST NOT PERFORM ED G/DL RDW (test code = 1038) TEST NOT PERFORMED % NEUTROPHILS (test code = 1008) TEST NOT PERFORMED % LYMPHOCYTES (test code = 1010) TEST NOT PERFORMED % MONOCYTES (test code = 1011) TEST NOT PERFORMED % EOSINOPHILS (test code = 1012) TEST NOT PERFORMED % BASOPHILS (test code = 1013) TEST NOT PERFORMED % PLATELET COUNT (test code = 1015) TEST NOT PERFORMED K/UL CBC W/AUTO [id number] 00:00:00* Test Item Value Reference Range Interpretation Comme nts WBC (test code = 1001) TEST NOT PERFORME D K/UL RBC (test code = 1002) TEST NOT PERFORME D M/UL HEMOGLOBIN (test code = 1003) TEST NOT PERFORMED G/DL HEMATOCRIT (test code = 1004) TEST NOT PERFORMED % MCV (test code = 1005) TEST NOT PERFORMED fL MCH (test code = 1006) TEST NOT PERFORMED PG [facility] (test code = 1007) TEST NOT PERFORM ED G/DL RDW (test code = 1038) TEST NOT PERFORMED % NEUTROPHILS (test code = 1008) TEST NOT PERFORMED % LYMPHOCYTES (test code = 1010) TEST NOT PERFORMED % MONOCYTES (test code = 1011) TEST NOT PERFORMED % EOSINOPHILS (test code = 1012) TEST NOT PERFORMED % BASOPHILS (test code = 1013) TEST NOT PERFORMED % PLATELET COUNT (test code = 1015) TEST NOT PERFORMED K/UL CBC W/AUTO [id number] 00:00:00* Test Item Value Reference Range Interpretation Comme nts WBC (test code = 1001) TEST NOT PERFORME D K/UL RBC (test code = 1002) TEST NOT PERFORME D M/UL HEMOGLOBIN (test code = 1003) TEST NOT PERFORMED G/DL HEMATOCRIT (test code = 1004) TEST NOT PERFORMED % MCV (test code = 1005) TEST NOT PERFORMED fL MCH (test code = 1006) TEST NOT PERFORMED PG [facility] (test code = 1007) TEST NOT PERFORM ED G/DL RDW (test code = 1038) TEST NOT PERFORMED % NEUTROPHILS (test code = 1008) TEST NOT PERFORMED % LYMPHOCYTES (test code = 1010) TEST NOT PERFORMED % MONOCYTES (test code = 1011) TEST NOT PERFORMED % EOSINOPHILS (test code = 1012) TEST NOT PERFORMED % BASOPHILS (test code = 1013) TEST NOT PERFORMED % PLATELET COUNT (test code = 1015) TEST NOT PERFORMED K/UL Tashi F AustinCBC W/AUTO [id number] 00:00:00* Test Item Value Reference Range Interpretation Comme nts WBC (test code = 1001) TEST NOT PERFORME D K/UL RBC (test code = 1002) TEST NOT PERFORME D M/UL HEMOGLOBIN (test code = 1003) TEST NOT PERFORMED G/DL HEMATOCRIT (test code = 1004) TEST NOT PERFORMED % MCV (test code = 1005) TEST NOT PERFORMED fL MCH (test code = 1006) TEST NOT PERFORMED PG [facility] (test code = 1007) TEST NOT PERFORM ED G/DL RDW (test code = 1038) TEST NOT PERFORMED % NEUTROPHILS (test code = 1008) TEST NOT PERFORMED % LYMPHOCYTES (test code = 1010) TEST NOT PERFORMED % MONOCYTES (test code = 1011) TEST NOT PERFORMED % EOSINOPHILS (test code = 1012) TEST NOT PERFORMED % BASOPHILS (test code = 1013) TEST NOT PERFORMED % PLATELET COUNT (test code = 1015) TEST NOT PERFORMED K/UL CBC W/AUTO [id number] 00:00:00* Test Item Value Reference Range Interpretation Comme nts WBC (test code = 1001) TEST NOT PERFORME D K/UL RBC (test code = 1002) TEST NOT PERFORME D M/UL HEMOGLOBIN (test code = 1003) TEST NOT PERFORMED G/DL HEMATOCRIT (test code = 1004) TEST NOT PERFORMED % MCV (test code = 1005) TEST NOT PERFORMED fL MCH (test code = 1006) TEST NOT PERFORMED [facility] (test code = 1007) TEST NOT PERFORM ED G/DL RDW (test code = 1038) TEST NOT PERFORMED % NEUTROPHILS (test code = 1008) TEST NOT PERFORMED % LYMPHOCYTES (test code = 1010) TEST NOT PERFORMED % MONOCYTES (test code = 1011) TEST NOT PERFORMED % EOSINOPHILS (test code = 1012) TEST NOT PERFORMED % BASOPHILS (test code = 1013) TEST NOT PERFORMED % PLATELET COUNT (test code = 1015) TEST NOT PERFORMED K/UL Tashi F AustinCBC W/AUTO [id number] 00:00:00* Test Item Value Reference Range Interpretation Comme nts WBC (test code = 1001) TEST NOT PERFORME D K/UL RBC (test code = 1002) TEST NOT PERFORME D M/UL HEMOGLOBIN (test code = 1003) TEST NOT PERFORMED G/DL HEMATOCRIT (test code = 1004) TEST NOT PERFORMED % MCV (test code = 1005) TEST NOT PERFORMED fL MCH (test code = 1006) TEST NOT PERFORMED PG [facility] (test code = 1007) TEST NOT PERFORM ED G/DL RDW (test code = 1038) TEST NOT PERFORMED % NEUTROPHILS (test code = 1008) TEST NOT PERFORMED % LYMPHOCYTES (test code = 1010) TEST NOT PERFORMED % MONOCYTES (test code = 1011) TEST NOT PERFORMED % EOSINOPHILS (test code = 1012) TEST NOT PERFORMED % BASOPHILS (test code = 1013) TEST NOT PERFORMED % PLATELET COUNT (test code = 1015) TEST NOT PERFORMED K/UL Tashi F AustinCBC W/AUTO [id number] 00:00:00* Test Item Value Reference Range Interpretation Comme nts WBC (test code = 1001) TEST NOT PERFORME D K/UL RBC (test code = 1002) TEST NOT PERFORME D M/UL HEMOGLOBIN (test code = 1003) TEST NOT PERFORMED G/DL HEMATOCRIT (test code = 1004) TEST NOT PERFORMED % MCV (test code = 1005) TEST NOT PERFORMED fL MCH (test code = 1006) TEST NOT PERFORMED PG [facility] (test code = 1007) TEST NOT PERFORM ED G/DL RDW (test code = 1038) TEST NOT PERFORMED % NEUTROPHILS (test code = 1008) TEST NOT PERFORMED % LYMPHOCYTES (test code = 1010) TEST NOT PERFORMED % MONOCYTES (test code = 1011) TEST NOT PERFORMED % EOSINOPHILS (test code = 1012) TEST NOT PERFORMED % BASOPHILS (test code = 1013) TEST NOT PERFORMED % PLATELET COUNT (test code = 1015) TEST NOT PERFORMED K/UL Tashi F AustinCBC W/AUTO [id number] 00:00:00* Test Item Value Reference Range Interpretation Comme nts WBC (test code = 1001) TEST NOT PERFORME D K/UL RBC (test code = 1002) TEST NOT PERFORME D M/UL HEMOGLOBIN (test code = 1003) TEST NOT PERFORMED G/DL HEMATOCRIT (test code = 1004) TEST NOT PERFORMED % MCV (test code = 1005) TEST NOT PERFORMED fL MCH (test code = 1006) TEST NOT PERFORMED PG [facility] (test code = 1007) TEST NOT PERFORM ED G/DL RDW (test code = 1038) TEST NOT PERFORMED % NEUTROPHILS (test code = 1008) TEST NOT PERFORMED % LYMPHOCYTES (test code = 1010) TEST NOT PERFORMED % MONOCYTES (test code = 1011) TEST NOT PERFORMED % EOSINOPHILS (test code = 1012) TEST NOT PERFORMED % BASOPHILS (test code = 1013) TEST NOT PERFORMED % PLATELET COUNT (test code = 1015) TEST NOT PERFORMED K/UL Tashi F AustinCBC W/AUTO [id number] 00:00:00* Test Item Value Reference Range Interpretation Comme nts WBC (test code = 1001) TEST NOT PERFORME D K/UL RBC (test code = 1002) TEST NOT PERFORME D M/UL HEMOGLOBIN (test code = 1003) TEST NOT PERFORMED G/DL HEMATOCRIT (test code = 1004) TEST NOT PERFORMED % MCV (test code = 1005) TEST NOT PERFORMED fL MCH (test code = 1006) TEST NOT PERFORMED PG [facility] (test code = 1007) TEST NOT PERFORM ED G/DL RDW (test code = 1038) TEST NOT PERFORMED % NEUTROPHILS (test code = 1008) TEST NOT PERFORMED % LYMPHOCYTES (test code = 1010) TEST NOT PERFORMED % MONOCYTES (test code = 1011) TEST NOT PERFORMED % EOSINOPHILS (test code = 1012) TEST NOT PERFORMED % BASOPHILS (test code = 1013) TEST NOT PERFORMED % PLATELET COUNT (test code = 1015) TEST NOT PERFORMED K/UL Tashi F AustinCBC W/AUTO [id number] 00:00:00* Test Item Value Reference Range Interpretation Comme nts WBC (test code = 1001) TEST NOT PERFORME D K/UL RBC (test code = 1002) TEST NOT PERFORME D M/UL HEMOGLOBIN (test code = 1003) TEST NOT PERFORMED G/DL HEMATOCRIT (test code = 1004) TEST NOT PERFORMED % MCV (test code = 1005) TEST NOT PERFORMED fL MCH (test code = 1006) TEST NOT PERFORMED PG [facility] (test code = 1007) TEST NOT PERFORM ED G/DL RDW (test code = 1038) TEST NOT PERFORMED % NEUTROPHILS (test code = 1008) TEST NOT PERFORMED % LYMPHOCYTES (test code = 1010) TEST NOT PERFORMED % MONOCYTES (test code = 1011) TEST NOT PERFORMED % EOSINOPHILS (test code = 1012) TEST NOT PERFORMED % BASOPHILS (test code = 1013) TEST NOT PERFORMED % PLATELET COUNT (test code = 1015) TEST NOT PERFORMED K/UL Tashi Jerald LeobardoCBC W/AUTO [id number] 00:00:00* Test Item Value Reference Range Interpretation Comme nts WBC (test code = 1001) TEST NOT PERFORME D K/UL RBC (test code = 1002) TEST NOT PERFORME D M/UL HEMOGLOBIN (test code = 1003) TEST NOT PERFORMED G/DL HEMATOCRIT (test code = 1004) TEST NOT PERFORMED % MCV (test code = 1005) TEST NOT PERFORMED fL MCH (test code = 1006) TEST NOT PERFORMED PG [facility] (test code = 1007) TEST NOT PERFORM ED G/DL RDW (test code = 1038) TEST NOT PERFORMED % NEUTROPHILS (test code = 1008) TEST NOT PERFORMED % LYMPHOCYTES (test code = 1010) TEST NOT PERFORMED % MONOCYTES (test code = 1011) TEST NOT PERFORMED % EOSINOPHILS (test code = 1012) TEST NOT PERFORMED % BASOPHILS (test code = 1013) TEST NOT PERFORMED % PLATELET COUNT (test code = 1015) TEST NOT PERFORMED K/UL Tashijennifer BoothCULTURE, [id number] 00:00:00* Test Item Value Reference Range Interpretation Comme nts CULTURE, URINE (test code = 03245) SPECIMEN NUMBER: [id number] CULTURE, [id number] 00:00:00* Test Item Value Reference Range Interpretation Comme nts CULTURE, URINE (test code = 45585) SPECIMEN NUMBER: [id number] Tashi F AustinCULTURE, [id number] 00:00:00* Test Item Value Reference Range Interpretation Comme nts CULTURE, URINE (test code = 86595) SPECIMEN NUMBER: [id number] CULTURE, [id number] 00:00:00* Test Item Value Reference Range Interpretation Comme nts CULTURE, URINE (test code = 19309) SPECIMEN NUMBER: [id number] CULTURE, [id number] 00:00:00* Test Item Value Reference Range Interpretation Comme nts CULTURE, URINE (test code = 54683) SPECIMEN NUMBER: [id number] Tashi Rivero [id number] 00:00:00* Test Item Value Reference Range Interpretation Comme nts CULTURE, URINE (test code = 93104) SPECIMEN NUMBER: [id number] HERMELINDO [id number] 00:00:00* Test Item Value Reference Range Interpretation Comme nts CULTURE, URINE (test code = 79748) SPECIMEN NUMBER: [id number] Tashi AustinLTEDGAR [id number] 00:00:00* Test Item Value Reference Range Interpretation Comme nts CULTURE, URINE (test code = 80770) SPECIMEN NUMBER: [id number] HERMELINDO [id number] 00:00:00* Test Item Value Reference Range Interpretation Comme nts CULTURE, URINE (test code = 65235) SPECIMEN NUMBER: [id number] Tahsi Rivero [id number] 00:00:00* Test Item Value Reference Range Interpretation Comme nts CULTURE, URINE (test code = 03030) SPECIMEN NUMBER: [id number] Tashi BoothCULTEDGAR [id number] 00:00:00* Test Item Value Reference Range Interpretation Comme nts CULTURE, URINE (test code = 31189) SPECIMEN NUMBER: [id number] Tashi Rivero [id number] 00:00:00* Test Item Value Reference Range Interpretation Comme nts CULTURE, URINE (test code = 43462) SPECIMEN NUMBER: [id number] Tashi AustinLTEDGAR [id number] 00:00:00* Test Item Value Reference Range Interpretation Comme nts CULTURE, URINE (test code = 58913) SPECIMEN NUMBER: [id number] Tashi BoothCULTEDGAR [id number] 00:00:00* Test Item Value Reference Range Interpretation Comme nts CULTURE, URINE (test code = 94785) SPECIMEN NUMBER: [id number] Tashi BoothVITAMIN D, 25 [id number] 00:00:00* Test Item Value Reference Range Interpretation Comme nts VITAMIN D, 25 OH (test code = 4958) 18 NG/ML Tashi BoothCOMPREHENSIVE METABOLIC [id number] 00:00:00* Test Item Value Reference Range Interpretation Comme nts GLUCOSE (test code = 2217) 92 MG/DL BUN (test code = 2208) 6 MG/DL CREATININE (test code = 2214) 0.57 MG/DL eGFR AMER. (test cod e = 94861) 138 ML/MIN/1.73 eGFR NON- AMER. (test code = 63702) 119 ML/MIN/1.73 CALC BUN/CREAT (test code = 2235) 11 RATIO SODIUM (test code = 2231) 139 MEQ/L POTASSIUM (test code = 2228) 4.4 MEQ/L CHLORIDE (test code = 2215) 101 MEQ/L CARBON DIOXIDE (test code = 2206) 23 MEQ/L CALCIUM (test code = 2209) 9.2 MG/DL PROTEIN, TOTAL (test code = 2229) 7.4 G/DL ALBUMIN (test code = 2201) 4.5 G/DL CALC GLOBULIN (test code = 2240) 2.9 G/DL CALC A/G RATIO (test code = 2234) 1.6 RATIO BILIRUBIN, TOTAL (test code = 2207) 0.3 MG/DL ALKALINE PHOSPHATASE (test code = 2204) 62 U/L AST (test code = 2218) 17 U/L ALT (test code = 2219) 18 U/L CBC W/AUTO [id number] 00:00:00* Test Item Value Reference Range Interpretation Comme nts WBC (test code = 1001) 6.5 K/UL RBC (test code = 1002) 4.17 M/UL HEMOGLOBIN (test code = 1003) 9.8 G/DL HEMATOCRIT (test code = 1004) 31.0 % MCV (test code = 1005) 74.3 fL MCH (test code = 1006) 23.5 PG MCHC (test code = 1007) 31.6 G/DL RDW (test code = 1038) 15.5 % NEUTROPHILS (test code = 1008) 74.5 % LYMPHOCYTES (test code = 1010) 17.2 % MONOCYTES (test code = 1011) 6.7 % EOSINOPHILS (test code = 1012) 1.1 % BASOPHILS (test code = 1013) 0.5 % PLATELET COUNT (test code = 1015) 314 K/UL [id number] 00:00:00* Test Item Value Reference Range Interpretation Comme nts TSH, THIRD GENERATION (test code = 2821) 1.150 UIU/ML VITAMIN D, 25 [id number] 00:00:00* Test Item Value Reference Range Interpretation Comme nts VITAMIN D, 25 OH (test code = 4958) 18 NG/ML COMPREHENSIVE METABOLIC [id number] 00:00:00* Test Item Value Reference Range Interpretation Comme nts GLUCOSE (test code = 2217) 92 MG/DL BUN (test code = 2208) 6 MG/DL CREATININE (test code = 2214) 0.57 MG/DL eGFR AMER. (test cod e = 82267) 138 ML/MIN/1.73 eGFR NON- AMER. (test code = 06570) 119 ML/MIN/1.73 CALC BUN/CREAT (test code = 2235) 11 RATIO SODIUM (test code = 2231) 139 MEQ/L POTASSIUM (test code = 2228) 4.4 MEQ/L CHLORIDE (test code = 2215) 101 MEQ/L CARBON DIOXIDE (test code = 2206) 23 MEQ/L CALCIUM (test code = 2209) 9.2 MG/DL PROTEIN, TOTAL (test code = 2229) 7.4 G/DL ALBUMIN (test code = 2201) 4.5 G/DL CALC GLOBULIN (test code = 2240) 2.9 G/DL CALC A/G RATIO (test code = 2234) 1.6 RATIO BILIRUBIN, TOTAL (test code = 2207) 0.3 MG/DL ALKALINE PHOSPHATASE (test code = 2204) 62 U/L AST (test code = 2218) 17 U/L ALT (test code = 2219) 18 U/L COMPREHENSIVE METABOLIC [id number] 00:00:00* Test Item Value Reference Range Interpretation Comme nts GLUCOSE (test code = 2217) 92 MG/DL BUN (test code = 2208) 6 MG/DL CREATININE (test code = 2214) 0.57 MG/DL eGFR AMER. (test cod e = 95092) 138 ML/MIN/1.73 eGFR NON- AMER. (test code = 16287) 119 ML/MIN/1.73 CALC BUN/CREAT (test code = 2235) 11 RATIO SODIUM (test code = 2231) 139 MEQ/L POTASSIUM (test code = 2228) 4.4 MEQ/L CHLORIDE (test code = 2215) 101 MEQ/L CARBON DIOXIDE (test code = 2206) 23 MEQ/L CALCIUM (test code = 2209) 9.2 MG/DL PROTEIN, TOTAL (test code = 2229) 7.4 G/DL ALBUMIN (test code = 2201) 4.5 G/DL CALC GLOBULIN (test code = 2240) 2.9 G/DL CALC A/G RATIO (test code = 2234) 1.6 RATIO BILIRUBIN, TOTAL (test code = 2207) 0.3 MG/DL ALKALINE PHOSPHATASE (test code = 2204) 62 U/L AST (test code = 2218) 17 U/L ALT (test code = 2219) 18 U/L Tashi Marques LeobardoCBC W/AUTO [id number] 00:00:00* Test Item Value Reference Range Interpretation Comme nts WBC (test code = 1001) 6.5 K/UL RBC (test code = 1002) 4.17 M/UL HEMOGLOBIN (test code = 1003) 9.8 G/DL HEMATOCRIT (test code = 1004) 31.0 % MCV (test code = 1005) 74.3 fL MCH (test code = 1006) 23.5 PG MCHC (test code = 1007) 31.6 G/DL RDW (test code = 1038) 15.5 % NEUTROPHILS (test code = 1008) 74.5 % LYMPHOCYTES (test code = 1010) 17.2 % MONOCYTES (test code = 1011) 6.7 % EOSINOPHILS (test code = 1012) 1.1 % BASOPHILS (test code = 1013) 0.5 % PLATELET COUNT (test code = 1015) 314 K/UL [id number] 00:00:00* Test Item Value Reference Range Interpretation Comme [facility] TSH, THIRD GENERATION (test code = 2821) 1.150 UIU/ML VITAMIN D, 25 [id number] 00:00:00* Test Item Value Reference Range Interpretation Comme [facility] VITAMIN D, 25 OH (test code = 4958) 18 NG/ML CBC W/AUTO [id number] 00:00:00* Test Item Value Reference Range Interpretation Comme nts WBC (test code = 1001) 6.5 K/UL RBC (test code = 1002) 4.17 M/UL HEMOGLOBIN (test code = 1003) 9.8 G/DL HEMATOCRIT (test code = 1004) 31.0 % MCV (test code = 1005) 74.3 fL MCH (test code = 1006) 23.5 PG MCHC (test code = 1007) 31.6 G/DL RDW (test code = 1038) 15.5 % NEUTROPHILS (test code = 1008) 74.5 % LYMPHOCYTES (test code = 1010) 17.2 % MONOCYTES (test code = 1011) 6.7 % EOSINOPHILS (test code = 1012) 1.1 % BASOPHILS (test code = 1013) 0.5 % PLATELET COUNT (test code = 1015) 314 K/UL Tashi Marques LeobardoCOMPREHENSIVE METABOLIC [id number] 00:00:00* Test Item Value Reference Range Interpretation Comme nts GLUCOSE (test code = 2217) 92 MG/DL BUN (test code = 2208) 6 MG/DL CREATININE (test code = 2214) 0.57 MG/DL eGFR AMER. (test cod e = 64886) 138 ML/MIN/1.73 eGFR NON- AMER. (test code = 04249) 119 ML/MIN/1.73 CALC BUN/CREAT (test code = 2235) 11 RATIO SODIUM (test code = 2231) 139 MEQ/L POTASSIUM (test code = 2228) 4.4 MEQ/L CHLORIDE (test code = 2215) 101 MEQ/L CARBON DIOXIDE (test code = 2206) 23 MEQ/L CALCIUM (test code = 2209) 9.2 MG/DL PROTEIN, TOTAL (test code = 2229) 7.4 G/DL ALBUMIN (test code = 2201) 4.5 G/DL CALC GLOBULIN (test code = 2240) 2.9 G/DL CALC A/G RATIO (test code = 2234) 1.6 RATIO BILIRUBIN, TOTAL (test code = 2207) 0.3 MG/DL ALKALINE PHOSPHATASE (test code = 2204) 62 U/L AST (test code = 2218) 17 U/L ALT (test code = 2219) 18 U/L CBC W/AUTO [id number] 00:00:00* Test Item Value Reference Range Interpretation Comme nts WBC (test code = 1001) 6.5 K/UL RBC (test code = 1002) 4.17 M/UL HEMOGLOBIN (test code = 1003) 9.8 G/DL HEMATOCRIT (test code = 1004) 31.0 % MCV (test code = 1005) 74.3 fL MCH (test code = 1006) 23.5 PG MCHC (test code = 1007) 31.6 G/DL RDW (test code = 1038) 15.5 % NEUTROPHILS (test code = 1008) 74.5 % LYMPHOCYTES (test code = 1010) 17.2 % MONOCYTES (test code = 1011) 6.7 % EOSINOPHILS (test code = 1012) 1.1 % BASOPHILS (test code = 1013) 0.5 % PLATELET COUNT (test code = 1015) 314 K/UL [id number] 00:00:00* Test Item Value Reference Range Interpretation Comme [facility] TSH, THIRD GENERATION (test code = 2821) 1.150 UIU/ML Tashi BoothVITAMIN D, 25 [id number] 00:00:00* Test Item Value Reference Range Interpretation Comme [facility] VITAMIN D, 25 OH (test code = 4958) 18 NG/ML Tashi Marques [id number] 00:00:00* Test Item Value Reference Range Interpretation Comme [facility] TSH, THIRD GENERATION (test code = 2821) 1.150 UIU/ML VITAMIN D, 25 [id number] 00:00:00* Test Item Value Reference Range Interpretation Comme [facility] VITAMIN D, 25 OH (test code = 4958) 18 NG/ML COMPREHENSIVE METABOLIC [id number] 00:00:00* Test Item Value Reference Range Interpretation Comme nts GLUCOSE (test code = 2217) 92 MG/DL BUN (test code = 2208) 6 MG/DL CREATININE (test code = 2214) 0.57 MG/DL eGFR AMER. (test cod e = 71286) 138 ML/MIN/1.73 eGFR NON- AMER. (test code = 04511) 119 ML/MIN/1.73 CALC BUN/CREAT (test code = 2235) 11 RATIO SODIUM (test code = 2231) 139 MEQ/L POTASSIUM (test code = 2228) 4.4 MEQ/L CHLORIDE (test code = 2215) 101 MEQ/L CARBON DIOXIDE (test code = 2206) 23 MEQ/L CALCIUM (test code = 2209) 9.2 MG/DL PROTEIN, TOTAL (test code = 2229) 7.4 G/DL ALBUMIN (test code = 2201) 4.5 G/DL CALC GLOBULIN (test code = 2240) 2.9 G/DL CALC A/G RATIO (test code = 2234) 1.6 RATIO BILIRUBIN, TOTAL (test code = 2207) 0.3 MG/DL ALKALINE PHOSPHATASE (test code = 2204) 62 U/L AST (test code = 2218) 17 U/L ALT (test code = 2219) 18 U/L COMPREHENSIVE METABOLIC [id number] 00:00:00* Test Item Value Reference Range Interpretation Comme nts GLUCOSE (test code = 2217) 92 MG/DL BUN (test code = 2208) 6 MG/DL CREATININE (test code = 2214) 0.57 MG/DL eGFR AMER. (test cod e = 25858) 138 ML/MIN/1.73 eGFR NON- AMER. (test code = 89656) 119 ML/MIN/1.73 CALC BUN/CREAT (test code = 2235) 11 RATIO SODIUM (test code = 2231) 139 MEQ/L POTASSIUM (test code = 2228) 4.4 MEQ/L CHLORIDE (test code = 2215) 101 MEQ/L CARBON DIOXIDE (test code = 2206) 23 MEQ/L CALCIUM (test code = 2209) 9.2 MG/DL PROTEIN, TOTAL (test code = 2229) 7.4 G/DL ALBUMIN (test code = 2201) 4.5 G/DL CALC GLOBULIN (test code = 2240) 2.9 G/DL CALC A/G RATIO (test code = 2234) 1.6 RATIO BILIRUBIN, TOTAL (test code = 2207) 0.3 MG/DL ALKALINE PHOSPHATASE (test code = 2204) 62 U/L AST (test code = 2218) 17 U/L ALT (test code = 2219) 18 U/L Tashi Marques [facility] W/AUTO [id number] 00:00:00* Test Item Value Reference Range Interpretation Comme nts WBC (test code = 1001) 6.5 K/UL RBC (test code = 1002) 4.17 M/UL HEMOGLOBIN (test code = 1003) 9.8 G/DL HEMATOCRIT (test code = 1004) 31.0 % MCV (test code = 1005) 74.3 fL MCH (test code = 1006) 23.5 PG MCHC (test code = 1007) 31.6 G/DL RDW (test code = 1038) 15.5 % NEUTROPHILS (test code = 1008) 74.5 % LYMPHOCYTES (test code = 1010) 17.2 % MONOCYTES (test code = 1011) 6.7 % EOSINOPHILS (test code = 1012) 1.1 % BASOPHILS (test code = 1013) 0.5 % PLATELET COUNT (test code = 1015) 314 K/UL [id number] 00:00:00* Test Item Value Reference Range Interpretation Comme nts TSH, THIRD GENERATION (test code = 2821) 1.150 UIU/ML VITAMIN D, 25 [id number] 00:00:00* Test Item Value Reference Range Interpretation Comme nts VITAMIN D, 25 OH (test code = 4958) 18 NG/ML COMPREHENSIVE METABOLIC [id number] 00:00:00* Test Item Value Reference Range Interpretation Comme nts GLUCOSE (test code = 2217) 92 MG/DL BUN (test code = 2208) 6 MG/DL CREATININE (test code = 2214) 0.57 MG/DL eGFR AMER. (test cod e = 48932) 138 ML/MIN/1.73 eGFR NON- AMER. (test code = 97866) 119 ML/MIN/1.73 CALC BUN/CREAT (test code = 2235) 11 RATIO SODIUM (test code = 2231) 139 MEQ/L POTASSIUM (test code = 2228) 4.4 MEQ/L CHLORIDE (test code = 2215) 101 MEQ/L CARBON DIOXIDE (test code = 2206) 23 MEQ/L CALCIUM (test code = 2209) 9.2 MG/DL PROTEIN, TOTAL (test code = 2229) 7.4 G/DL ALBUMIN (test code = 2201) 4.5 G/DL CALC GLOBULIN (test code = 2240) 2.9 G/DL CALC A/G RATIO (test code = 2234) 1.6 RATIO BILIRUBIN, TOTAL (test code = 2207) 0.3 MG/DL ALKALINE PHOSPHATASE (test code = 2204) 62 U/L AST (test code = 2218) 17 U/L ALT (test code = 2219) 18 U/L CBC W/AUTO [id number] 00:00:00* Test Item Value Reference Range Interpretation Comme nts WBC (test code = 1001) 6.5 K/UL RBC (test code = 1002) 4.17 M/UL HEMOGLOBIN (test code = 1003) 9.8 G/DL HEMATOCRIT (test code = 1004) 31.0 % MCV (test code = 1005) 74.3 fL MCH (test code = 1006) 23.5 PG MCHC (test code = 1007) 31.6 G/DL RDW (test code = 1038) 15.5 % NEUTROPHILS (test code = 1008) 74.5 % LYMPHOCYTES (test code = 1010) 17.2 % MONOCYTES (test code = 1011) 6.7 % EOSINOPHILS (test code = 1012) 1.1 % BASOPHILS (test code = 1013) 0.5 % PLATELET COUNT (test code = 1015) 314 K/UL Tashi [id number] 00:00:00* Test Item Value Reference Range Interpretation Comme nts TSH, THIRD GENERATION (test code = 2821) 1.150 UIU/ML Tashi BoothVITAMIN D, 25 [id number] 00:00:00* Test Item Value Reference Range Interpretation Comme nts VITAMIN D, 25 OH (test code = 4958) 18 NG/ML Tashi Marques LeobardoCBC W/AUTO [id number] 00:00:00* Test Item Value Reference Range Interpretation Comme nts WBC (test code = 1001) 6.5 K/UL RBC (test code = 1002) 4.17 M/UL HEMOGLOBIN (test code = 1003) 9.8 G/DL HEMATOCRIT (test code = 1004) 31.0 % MCV (test code = 1005) 74.3 fL MCH (test code = 1006) 23.5 PG MCHC (test code = 1007) 31.6 G/DL RDW (test code = 1038) 15.5 % NEUTROPHILS (test code = 1008) 74.5 % LYMPHOCYTES (test code = 1010) 17.2 % MONOCYTES (test code = 1011) 6.7 % EOSINOPHILS (test code = 1012) 1.1 % BASOPHILS (test code = 1013) 0.5 % PLATELET COUNT (test code = 1015) 314 K/UL COMPREHENSIVE METABOLIC [id number] 00:00:00* Test Item Value Reference Range Interpretation Comme nts GLUCOSE (test code = 2217) 92 MG/DL BUN (test code = 2208) 6 MG/DL CREATININE (test code = 2214) 0.57 MG/DL eGFR AMER. (test cod e = 38275) 138 ML/MIN/1.73 eGFR NON- AMER. (test code = 69695) 119 ML/MIN/1.73 CALC BUN/CREAT (test code = 2235) 11 RATIO SODIUM (test code = 2231) 139 MEQ/L POTASSIUM (test code = 2228) 4.4 MEQ/L CHLORIDE (test code = 2215) 101 MEQ/L CARBON DIOXIDE (test code = 2206) 23 MEQ/L CALCIUM (test code = 2209) 9.2 MG/DL PROTEIN, TOTAL (test code = 2229) 7.4 G/DL ALBUMIN (test code = 2201) 4.5 G/DL CALC GLOBULIN (test code = 2240) 2.9 G/DL CALC A/G RATIO (test code = 2234) 1.6 RATIO BILIRUBIN, TOTAL (test code = 2207) 0.3 MG/DL ALKALINE PHOSPHATASE (test code = 2204) 62 U/L AST (test code = 2218) 17 U/L ALT (test code = 2219) 18 U/L Tasih [id number] 00:00:00* Test Item Value Reference Range Interpretation Comme [facility] TSH, THIRD GENERATION (test code = 2821) 1.150 UIU/ML VITAMIN D, 25 [id number] 00:00:00* Test Item Value Reference Range Interpretation Comme [facility] VITAMIN D, 25 OH (test code = 4958) 18 NG/ML CBC W/AUTO [id number] 00:00:00* Test Item Value Reference Range Interpretation Comme nts WBC (test code = 1001) 6.5 K/UL RBC (test code = 1002) 4.17 M/UL HEMOGLOBIN (test code = 1003) 9.8 G/DL HEMATOCRIT (test code = 1004) 31.0 % MCV (test code = 1005) 74.3 fL MCH (test code = 1006) 23.5 PG MCHC (test code = 1007) 31.6 G/DL RDW (test code = 1038) 15.5 % NEUTROPHILS (test code = 1008) 74.5 % LYMPHOCYTES (test code = 1010) 17.2 % MONOCYTES (test code = 1011) 6.7 % EOSINOPHILS (test code = 1012) 1.1 % BASOPHILS (test code = 1013) 0.5 % PLATELET COUNT (test code = 1015) 314 K/UL Tashi [id number] 00:00:00* Test Item Value Reference Range Interpretation Comme nts TSH, THIRD GENERATION (test code = 2821) 1.150 UIU/ML Tashi BoothVITAMIN D, 25 [id number] 00:00:00* Test Item Value Reference Range Interpretation Comme nts VITAMIN D, 25 OH (test code = 4958) 18 NG/ML Tashi BoothCOMPREHENSIVE METABOLIC [id number] 00:00:00* Test Item Value Reference Range Interpretation Comme nts GLUCOSE (test code = 2217) 92 MG/DL BUN (test code = 2208) 6 MG/DL CREATININE (test code = 2214) 0.57 MG/DL eGFR AMER. (test cod e = 11155) 138 ML/MIN/1.73 eGFR NON- AMER. (test code = 68069) 119 ML/MIN/1.73 CALC BUN/CREAT (test code = 2235) 11 RATIO SODIUM (test code = 2231) 139 MEQ/L POTASSIUM (test code = 2228) 4.4 MEQ/L CHLORIDE (test code = 2215) 101 MEQ/L CARBON DIOXIDE (test code = 2206) 23 MEQ/L CALCIUM (test code = 2209) 9.2 MG/DL PROTEIN, TOTAL (test code = 2229) 7.4 G/DL ALBUMIN (test code = 2201) 4.5 G/DL CALC GLOBULIN (test code = 2240) 2.9 G/DL CALC A/G RATIO (test code = 2234) 1.6 RATIO BILIRUBIN, TOTAL (test code = 2207) 0.3 MG/DL ALKALINE PHOSPHATASE (test code = 2204) 62 U/L AST (test code = 2218) 17 U/L ALT (test code = 2219) 18 U/L Tashi BoothCBC W/AUTO [id number] 00:00:00* Test Item Value Reference Range Interpretation Comme nts WBC (test code = 1001) 6.5 K/UL RBC (test code = 1002) 4.17 M/UL HEMOGLOBIN (test code = 1003) 9.8 G/DL HEMATOCRIT (test code = 1004) 31.0 % MCV (test code = 1005) 74.3 fL MCH (test code = 1006) 23.5 PG MCHC (test code = 1007) 31.6 G/DL RDW (test code = 1038) 15.5 % NEUTROPHILS (test code = 1008) 74.5 % LYMPHOCYTES (test code = 1010) 17.2 % MONOCYTES (test code = 1011) 6.7 % EOSINOPHILS (test code = 1012) 1.1 % BASOPHILS (test code = 1013) 0.5 % PLATELET COUNT (test code = 1015) 314 K/UL Tashi [id number] 00:00:00* Test Item Value Reference Range Interpretation Comme [facility] TSH, THIRD GENERATION (test code = 2821) 1.150 UIU/ML Tashi BoothVITAMIN D, 25 [id number] 00:00:00* Test Item Value Reference Range Interpretation Comme [facility] VITAMIN D, 25 OH (test code = 4958) 18 NG/ML Tashi BoothCOMPREHENSIVE METABOLIC [id number] 00:00:00* Test Item Value Reference Range Interpretation Comme nts GLUCOSE (test code = 2217) 92 MG/DL BUN (test code = 2208) 6 MG/DL CREATININE (test code = 2214) 0.57 MG/DL eGFR AMER. (test cod e = 60494) 138 ML/MIN/1.73 eGFR NON- AMER. (test code = 72428) 119 ML/MIN/1.73 CALC BUN/CREAT (test code = 2235) 11 RATIO SODIUM (test code = 2231) 139 MEQ/L POTASSIUM (test code = 2228) 4.4 MEQ/L CHLORIDE (test code = 2215) 101 MEQ/L CARBON DIOXIDE (test code = 2206) 23 MEQ/L CALCIUM (test code = 2209) 9.2 MG/DL PROTEIN, TOTAL (test code = 2229) 7.4 G/DL ALBUMIN (test code = 2201) 4.5 G/DL CALC GLOBULIN (test code = 2240) 2.9 G/DL CALC A/G RATIO (test code = 2234) 1.6 RATIO BILIRUBIN, TOTAL (test code = 2207) 0.3 MG/DL ALKALINE PHOSPHATASE (test code = 2204) 62 U/L AST (test code = 2218) 17 U/L ALT (test code = 2219) 18 U/L Tashi BoothCBC W/AUTO [id number] 00:00:00* Test Item Value Reference Range Interpretation Comme nts WBC (test code = 1001) 6.5 K/UL RBC (test code = 1002) 4.17 M/UL HEMOGLOBIN (test code = 1003) 9.8 G/DL HEMATOCRIT (test code = 1004) 31.0 % MCV (test code = 1005) 74.3 fL MCH (test code = 1006) 23.5 PG MCHC (test code = 1007) 31.6 G/DL RDW (test code = 1038) 15.5 % NEUTROPHILS (test code = 1008) 74.5 % LYMPHOCYTES (test code = 1010) 17.2 % MONOCYTES (test code = 1011) 6.7 % EOSINOPHILS (test code = 1012) 1.1 % BASOPHILS (test code = 1013) 0.5 % PLATELET COUNT (test code = 1015) 314 K/UL Tashi [id number] 00:00:00* Test Item Value Reference Range Interpretation Comme [facility] TSH, THIRD GENERATION (test code = 2821) 1.150 UIU/ML Tashi BoothVITAMIN D, 25 [id number] 00:00:00* Test Item Value Reference Range Interpretation Comme [facility] VITAMIN D, 25 OH (test code = 4958) 18 NG/ML Tashi BoothCOMPREHENSIVE METABOLIC [id number] 00:00:00* Test Item Value Reference Range Interpretation Comme [facility] GLUCOSE (test code = 2217) 92 MG/DL BUN (test code = 2208) 6 MG/DL CREATININE (test code = 2214) 0.57 MG/DL eGFR AMER. (test cod e = 61021) 138 ML/MIN/1.73 eGFR NON- AMER. (test code = 85530) 119 ML/MIN/1.73 CALC BUN/CREAT (test code = 2235) 11 RATIO SODIUM (test code = 2231) 139 MEQ/L POTASSIUM (test code = 2228) 4.4 MEQ/L CHLORIDE (test code = 2215) 101 MEQ/L CARBON DIOXIDE (test code = 2206) 23 MEQ/L CALCIUM (test code = 2209) 9.2 MG/DL PROTEIN, TOTAL (test code = 2229) 7.4 G/DL ALBUMIN (test code = 2201) 4.5 G/DL CALC GLOBULIN (test code = 2240) 2.9 G/DL CALC A/G RATIO (test code = 2234) 1.6 RATIO BILIRUBIN, TOTAL (test code = 2207) 0.3 MG/DL ALKALINE PHOSPHATASE (test code = 2204) 62 U/L AST (test code = 2218) 17 U/L ALT (test code = 2219) 18 U/L Tashi BoothCBC W/AUTO [id number] 00:00:00* Test Item Value Reference Range Interpretation Comme nts WBC (test code = 1001) 6.5 K/UL RBC (test code = 1002) 4.17 M/UL HEMOGLOBIN (test code = 1003) 9.8 G/DL HEMATOCRIT (test code = 1004) 31.0 % MCV (test code = 1005) 74.3 fL MCH (test code = 1006) 23.5 PG MCHC (test code = 1007) 31.6 G/DL RDW (test code = 1038) 15.5 % NEUTROPHILS (test code = 1008) 74.5 % LYMPHOCYTES (test code = 1010) 17.2 % MONOCYTES (test code = 1011) 6.7 % EOSINOPHILS (test code = 1012) 1.1 % BASOPHILS (test code = 1013) 0.5 % PLATELET COUNT (test code = 1015) 314 K/UL Tashi [id number] 00:00:00* Test Item Value Reference Range Interpretation Comme nts TSH, THIRD GENERATION (test code = 2821) 1.150 UIU/ML Tashi BoothVITAMIN D, 25 [id number] 00:00:00* Test Item Value Reference Range Interpretation Comme nts VITAMIN D, 25 OH (test code = 4958) 18 NG/ML Tashi BoothCOMPREHENSIVE METABOLIC [id number] 00:00:00* Test Item Value Reference Range Interpretation Comme nts GLUCOSE (test code = 2217) 92 MG/DL BUN (test code = 2208) 6 MG/DL CREATININE (test code = 2214) 0.57 MG/DL eGFR AMER. (test cod e = 58747) 138 ML/MIN/1.73 eGFR NON- AMER. (test code = 42065) 119 ML/MIN/1.73 CALC BUN/CREAT (test code = 2235) 11 RATIO SODIUM (test code = 2231) 139 MEQ/L POTASSIUM (test code = 2228) 4.4 MEQ/L CHLORIDE (test code = 2215) 101 MEQ/L CARBON DIOXIDE (test code = 2206) 23 MEQ/L CALCIUM (test code = 2209) 9.2 MG/DL PROTEIN, TOTAL (test code = 2229) 7.4 G/DL ALBUMIN (test code = 2201) 4.5 G/DL CALC GLOBULIN (test code = 2240) 2.9 G/DL CALC A/G RATIO (test code = 2234) 1.6 RATIO BILIRUBIN, TOTAL (test code = 2207) 0.3 MG/DL ALKALINE PHOSPHATASE (test code = 2204) 62 U/L AST (test code = 2218) 17 U/L ALT (test code = 2219) 18 U/L Tashi BoothCBC W/AUTO [id number] 00:00:00* Test Item Value Reference Range Interpretation Comme nts WBC (test code = 1001) 6.5 K/UL RBC (test code = 1002) 4.17 M/UL HEMOGLOBIN (test code = 1003) 9.8 G/DL HEMATOCRIT (test code = 1004) 31.0 % MCV (test code = 1005) 74.3 fL MCH (test code = 1006) 23.5 PG MCHC (test code = 1007) 31.6 G/DL RDW (test code = 1038) 15.5 % NEUTROPHILS (test code = 1008) 74.5 % LYMPHOCYTES (test code = 1010) 17.2 % MONOCYTES (test code = 1011) 6.7 % EOSINOPHILS (test code = 1012) 1.1 % BASOPHILS (test code = 1013) 0.5 % PLATELET COUNT (test code = 1015) 314 K/UL Tashi [id number] 00:00:00* Test Item Value Reference Range Interpretation Comme nts TSH, THIRD GENERATION (test code = 2821) 1.150 UIU/ML Tashi BoothVITAMIN D, 25 [id number] 00:00:00* Test Item Value Reference Range Interpretation Comme nts VITAMIN D, 25 OH (test code = 4958) 18 NG/ML Tashi BoothCOMPREHENSIVE METABOLIC [id number] 00:00:00* Test Item Value Reference Range Interpretation Comme nts GLUCOSE (test code = 2217) 92 MG/DL BUN (test code = 2208) 6 MG/DL CREATININE (test code = 2214) 0.57 MG/DL eGFR AMER. (test cod e = 16766) 138 ML/MIN/1.73 eGFR NON- AMER. (test code = 71022) 119 ML/MIN/1.73 CALC BUN/CREAT (test code = 2235) 11 RATIO SODIUM (test code = 2231) 139 MEQ/L POTASSIUM (test code = 2228) 4.4 MEQ/L CHLORIDE (test code = 2215) 101 MEQ/L CARBON DIOXIDE (test code = 2206) 23 MEQ/L CALCIUM (test code = 2209) 9.2 MG/DL PROTEIN, TOTAL (test code = 2229) 7.4 G/DL ALBUMIN (test code = 2201) 4.5 G/DL CALC GLOBULIN (test code = 2240) 2.9 G/DL CALC A/G RATIO (test code = 2234) 1.6 RATIO BILIRUBIN, TOTAL (test code = 2207) 0.3 MG/DL ALKALINE PHOSPHATASE (test code = 2204) 62 U/L AST (test code = 2218) 17 U/L ALT (test code = 2219) 18 U/L Tashi BoothCBC W/AUTO [id number] 00:00:00* Test Item Value Reference Range Interpretation Comme nts WBC (test code = 1001) 6.5 K/UL RBC (test code = 1002) 4.17 M/UL HEMOGLOBIN (test code = 1003) 9.8 G/DL HEMATOCRIT (test code = 1004) 31.0 % MCV (test code = 1005) 74.3 fL MCH (test code = 1006) 23.5 PG MCHC (test code = 1007) 31.6 G/DL RDW (test code = 1038) 15.5 % NEUTROPHILS (test code = 1008) 74.5 % LYMPHOCYTES (test code = 1010) 17.2 % MONOCYTES (test code = 1011) 6.7 % EOSINOPHILS (test code = 1012) 1.1 % BASOPHILS (test code = 1013) 0.5 % PLATELET COUNT (test code = 1015) 314 K/UL Tashi [id number] 00:00:00* Test Item Value Reference Range Interpretation Comme [facility] TSH, THIRD GENERATION (test code = 2821) 1.150 UIU/ML Tashi BoothVITAMIN D, 25 [id number] 00:00:00* Test Item Value Reference Range Interpretation Comme [facility] VITAMIN D, 25 OH (test code = 4958) 18 NG/ML Tashi BoothCOMPREHENSIVE METABOLIC [id number] 00:00:00* Test Item Value Reference Range Interpretation Comme nts GLUCOSE (test code = 2217) 92 MG/DL BUN (test code = 2208) 6 MG/DL CREATININE (test code = 2214) 0.57 MG/DL eGFR AMER. (test cod e = 40802) 138 ML/MIN/1.73 eGFR NON- AMER. (test code = 15392) 119 ML/MIN/1.73 CALC BUN/CREAT (test code = 2235) 11 RATIO SODIUM (test code = 2231) 139 MEQ/L POTASSIUM (test code = 2228) 4.4 MEQ/L CHLORIDE (test code = 2215) 101 MEQ/L CARBON DIOXIDE (test code = 2206) 23 MEQ/L CALCIUM (test code = 2209) 9.2 MG/DL PROTEIN, TOTAL (test code = 2229) 7.4 G/DL ALBUMIN (test code = 2201) 4.5 G/DL CALC GLOBULIN (test code = 2240) 2.9 G/DL CALC A/G RATIO (test code = 2234) 1.6 RATIO BILIRUBIN, TOTAL (test code = 2207) 0.3 MG/DL ALKALINE PHOSPHATASE (test code = 2204) 62 U/L AST (test code = 2218) 17 U/L ALT (test code = 2219) 18 U/L Tashi BoothCBC W/AUTO [id number] 00:00:00* Test Item Value Reference Range Interpretation Comme nts WBC (test code = 1001) 6.5 K/UL RBC (test code = 1002) 4.17 M/UL HEMOGLOBIN (test code = 1003) 9.8 G/DL HEMATOCRIT (test code = 1004) 31.0 % MCV (test code = 1005) 74.3 fL MCH (test code = 1006) 23.5 PG MCHC (test code = 1007) 31.6 G/DL RDW (test code = 1038) 15.5 % NEUTROPHILS (test code = 1008) 74.5 % LYMPHOCYTES (test code = 1010) 17.2 % MONOCYTES (test code = 1011) 6.7 % EOSINOPHILS (test code = 1012) 1.1 % BASOPHILS (test code = 1013) 0.5 % PLATELET COUNT (test code = 1015) 314 K/UL Tashi [id number] 00:00:00* Test Item Value Reference Range Interpretation Comme nts TSH, THIRD GENERATION (test code = 2821) 1.150 UIU/ML Tashi Rivero, [id number] 00:00:00* Test Item Value Reference Range Interpretation Comme nts CULTURE, URINE (test code = 80925) SPECIMEN NUMBER: [id number] CULTURE, [id number] 00:00:00* Test Item Value Reference Range Interpretation Comme nts CULTURE, URINE (test code = 22637) SPECIMEN NUMBER: [id number] CULTURE, [id number] 00:00:00* Test Item Value Reference Range Interpretation Comme nts CULTURE, URINE (test code = 76617) SPECIMEN NUMBER: [id number] Tashi Rivero, [id number] 00:00:00* Test Item Value Reference Range Interpretation Comme nts CULTURE, URINE (test code = 89555) SPECIMEN NUMBER: [id number] CULTURE, [id number] 00:00:00* Test Item Value Reference Range Interpretation Comme nts CULTURE, URINE (test code = 09827) SPECIMEN NUMBER: [id number] CULTURE, [id number] 00:00:00* Test Item Value Reference Range Interpretation Comme nts CULTURE, URINE (test code = 01665) SPECIMEN NUMBER: [id number] Tashi Rivero, [id number] 00:00:00* Test Item Value Reference Range Interpretation Comme nts CULTURE, URINE (test code = 14059) SPECIMEN NUMBER: [id number] CULTURE, [id number] 00:00:00* Test Item Value Reference Range Interpretation Comme nts CULTURE, URINE (test code = 58105) SPECIMEN NUMBER: [id number] Tashi Rivero, [id number] 00:00:00* Test Item Value Reference Range Interpretation Comme nts CULTURE, URINE (test code = 64568) SPECIMEN NUMBER: [id number] Tashi Rivero, [id number] 00:00:00* Test Item Value Reference Range Interpretation Comme nts CULTURE, URINE (test code = 85851) SPECIMEN NUMBER: [id number] Tashi Rivero, [id number] 00:00:00* Test Item Value Reference Range Interpretation Comme nts CULTURE, URINE (test code = 73466) SPECIMEN NUMBER: [id number] Tashi Rivero, [id number] 00:00:00* Test Item Value Reference Range Interpretation Comme nts CULTURE, URINE (test code = 84914) SPECIMEN NUMBER: [id number] Tashi Rivero, [id number] 00:00:00* Test Item Value Reference Range Interpretation Comme nts CULTURE, URINE (test code = 55353) SPECIMEN NUMBER: [id number] Tashi Rivero, [id number] 00:00:00* Test Item Value Reference Range Interpretation Comme nts CULTURE, URINE (test code = 07393) SPECIMEN NUMBER: [id number] Tashi BoothVAGINAL PATHOGENS DNA [id number] 00:00:00* Test Item Value Reference Range Interpretation Comme nts GERMAN SPECIES (test code = 92288) NEGATIVE G. VAGINALIS (test code = 00619) NEGATIVE T. VAGINALIS (test code = 76718) NEGATIVE VAGINAL PATHOGENS DNA [id number] 00:00:00* Test Item Value Reference Range Interpretation Comme nts GERMAN SPECIES (test code = 62996) NEGATIVE G. VAGINALIS (test code = 80519) NEGATIVE T. VAGINALIS (test code = 76811) NEGATIVE Tashi F AustinVAGINAL PATHOGENS DNA [id number] 00:00:00* Test Item Value Reference Range Interpretation Comme nts GERMAN SPECIES (test code = 32926) NEGATIVE G. VAGINALIS (test code = 80280) NEGATIVE T. VAGINALIS (test code = 56675) NEGATIVE VAGINAL PATHOGENS DNA [id number] 00:00:00* Test Item Value Reference Range Interpretation Comme nts GERMAN SPECIES (test code = 42133) NEGATIVE G. VAGINALIS (test code = 69572) NEGATIVE T. VAGINALIS (test code = 75768) NEGATIVE VAGINAL PATHOGENS DNA [id number] 00:00:00* Test Item Value Reference Range Interpretation Comme nts GERMAN SPECIES (test code = 80609) NEGATIVE G. VAGINALIS (test code = 90787) NEGATIVE T. VAGINALIS (test code = 36611) NEGATIVE Tashi F AustinVAGINAL PATHOGENS DNA [id number] 00:00:00* Test Item Value Reference Range Interpretation Comme nts GERMAN SPECIES (test code = ) NEGATIVE G. VAGINALIS (test code = 25904) NEGATIVE T. VAGINALIS (test code = 86118) NEGATIVE VAGINAL PATHOGENS DNA [id number] 00:00:00* Test Item Value Reference Range Interpretation Comme nts GERMAN SPECIES (test code = 85639) NEGATIVE G. VAGINALIS (test code = 42991) NEGATIVE T. VAGINALIS (test code = 08952) NEGATIVE VAGINAL PATHOGENS DNA [id number] 00:00:00* Test Item Value Reference Range Interpretation Comme nts GERMAN SPECIES (test code = 59297) NEGATIVE G. VAGINALIS (test code = 77333) NEGATIVE T. VAGINALIS (test code = 72504) NEGATIVE Tashi F AustinVAGINAL PATHOGENS DNA [id number] 00:00:00* Test Item Value Reference Range Interpretation Comme nts GERMAN SPECIES (test code = 47195) NEGATIVE G. VAGINALIS (test code = 78833) NEGATIVE T. VAGINALIS (test code = 67208) NEGATIVE Tashi F AustinVAGINAL PATHOGENS DNA [id number] 00:00:00* Test Item Value Reference Range Interpretation Comme nts GERMAN SPECIES (test code = 63657) NEGATIVE G. VAGINALIS (test code = 59636) NEGATIVE T. VAGINALIS (test code = 27149) NEGATIVE Tashi Marques AustinVAGINAL PATHOGENS DNA [id number] 00:00:00* Test Item Value Reference Range Interpretation Comme nts GERMAN SPECIES (test code = 41798) NEGATIVE G. VAGINALIS (test code = 96337) NEGATIVE T. VAGINALIS (test code = 70230) NEGATIVE Tashi Marques AustinVAGINAL PATHOGENS DNA [id number] 00:00:00* Test Item Value Reference Range Interpretation Comme nts GERMAN SPECIES (test code = 73223) NEGATIVE G. VAGINALIS (test code = 54160) NEGATIVE T. VAGINALIS (test code = 62830) NEGATIVE Tashi Marques AustinVAGINAL PATHOGENS DNA [id number] 00:00:00* Test Item Value Reference Range Interpretation Comme nts GERMAN SPECIES (test code = 43685) NEGATIVE G. VAGINALIS (test code = 32251) NEGATIVE T. VAGINALIS (test code = 59991) NEGATIVE Tashi Marques AustinVAGINAL PATHOGENS DNA [id number] 00:00:00* Test Item Value Reference Range Interpretation Comme nts GERMAN SPECIES (test code = 54028) NEGATIVE G. VAGINALIS (test code = 19054) NEGATIVE T. VAGINALIS (test code = 78420) NEGATIVE Tashi Marques AustinCULTURE, [id number] 00:00:00* Test Item Value Reference Range Interpretation Comme nts CULTURE, URINE (test code = 50238) SPECIMEN NUMBER: [id number] Tashi Marques AustinCULTURE, [id number] 00:00:00* Test Item Value Reference Range Interpretation Comme nts CULTURE, URINE (test code = 89549) SPECIMEN NUMBER: [id number] CULTURE, [id number] 00:00:00* Test Item Value Reference Range Interpretation Comme nts CULTURE, URINE (test code = 36310) SPECIMEN NUMBER: [id number] CULTURE, [id number] 00:00:00* Test Item Value Reference Range Interpretation Comme nts CULTURE, URINE (test code = 68992) SPECIMEN NUMBER: [id number] CULTURE, [id number] 00:00:00* Test Item Value Reference Range Interpretation Comme nts CULTURE, URINE (test code = 41971) SPECIMEN NUMBER: [id number] Tashi AustinLTURE, [id number] 00:00:00* Test Item Value Reference Range Interpretation Comme nts CULTURE, URINE (test code = 22386) SPECIMEN NUMBER: [id number] CULTURE, [id number] 00:00:00* Test Item Value Reference Range Interpretation Comme nts CULTURE, URINE (test code = 54806) SPECIMEN NUMBER: [id number] Tashi AustinLTEDGAR, [id number] 00:00:00* Test Item Value Reference Range Interpretation Comme nts CULTURE, URINE (test code = 90223) SPECIMEN NUMBER: [id number] HERMELINDO [id number] 00:00:00* Test Item Value Reference Range Interpretation Comme nts CULTURE, URINE (test code = 19808) SPECIMEN NUMBER: [id number] Tashi AustinLTEDGAR, [id number] 00:00:00* Test Item Value Reference Range Interpretation Comme nts CULTURE, URINE (test code = 71134) SPECIMEN NUMBER: [id number] Tashi AustinLTEDGAR, [id number] 00:00:00* Test Item Value Reference Range Interpretation Comme nts CULTURE, URINE (test code = 66215) SPECIMEN NUMBER: [id number] Tashi AustinLTEDGAR, [id number] 00:00:00* Test Item Value Reference Range Interpretation Comme nts CULTURE, URINE (test code = 04383) SPECIMEN NUMBER: [id number] Tashi AustinLTEDGAR, [id number] 00:00:00* Test Item Value Reference Range Interpretation Comme nts CULTURE, URINE (test code = 02337) SPECIMEN NUMBER: [id number] Tashi AustinLTEDGAR, [id number] 00:00:00* Test Item Value Reference Range Interpretation Comme nts CULTURE, URINE (test code = 67511) SPECIMEN NUMBER: [id number] Tashi Booth Deandre Date/Time Note Provider Source Tashi Booth [facility]2025-03-25 14:28:54 Addended by: KRISTIN NORTON LVN on: 09/01/2024 02:28 PM Modules accepted: Orders [place] [id number] 14:28:29 [id number]:00 Tashi Booth [facility]2025-03-24 14:39:04 Yes please, so sorry! Thank you! [facility]aukde3988-70-76 11:42:27 The medication called in, is this a compound if so [facility] does not make compounds Please call to verify Shailesh with [facility] Mayra MarshK[facility] [id number] 10:34:27 Patient is requesting a refill for: tranexamic acid 650 mg tablet L/S: 06/02/[address] Macdonald [facility] [address] [place] [address] S [place] [id number] 20:00:48 Patient given printed and verbal discharge instructions regarding hemorrhoids, encouraged hydration and proper nutrition Patient verbalized understanding of instructions. Patient awake alert oriented, respirations even and unlabored, no acute distress noted, skin warm & dry, color appropriate for race, moves all extremities well. Patient encouraged to follow up with PCP and to keep all appropriate appointments as scheduled or to return to ED for new/prolonged/worsening of symptoms No adverse reaction to medications given in ER noted upon discharge PIV d'cd without complications, dressing to site, catheter intact. Patient ambulated out of ED steadily, in possession of all belongings. CTOR MICROBIOLOGY Dyan Garcia [place] [id number] 17:15:[address] [place] 26629-01-04 15:55:53 MD at bedside for consent [place] 26629-01-04 13:27:18 Maribell Ramirez is a 43 year old female who presents to the ED via triage amb with a CC of rectal bleeding x 3 weeks. Pt reports she has hx of hemorrhoids and that she will usually bleed intermittently but it has not stopped and has had more clots along with bright red blood. Pt alert and oriented x4, RR Even and unlabored, skin warm and dry, appropriate for color. CTOR MICROBIOLOGY Eva Davis [id number] 00:00:00 [facility]2024-10-25 00:00:00 [place] [id number] 09:22:52 VM full and no mychart. If patient calls back Dr. Lamar has appts in [facility]. Tegan GrajedaJac[place] 845794-10-23 16:56:45 Maribell Ramirez is a 43 year old female Pt calling to request a [address] Lamar only. She can be reached at [phone] (home) Please advise. Angela WilliamK[facility] Health Main [id number] 00:00:00 [facility]2024-08-23 00:00:00 [facility]2024-08-01 11:00:00 Addended by: KRISTINE SHI MD on: 01/18/2024 02:18 PM Modules accepted: Level of Service ZONIA-JORDAN [facility]2024-07-11 00:00:00 [facility]2024-05-08 00:00:00 [facility]2024-04-24 00:00:00 [facility]
[2024-09-20 12:12] LABS: Absolute Basophils 0.1 K/uL (0-0.5); Absolute Eosinophils 0.1 K/uL (0-0.5); Absolute Lymphocytes (CBC) 1.1 K/uL (0.7-4.9); Absolute Monocytes 0.6 K/uL (0.1-1.3); Absolute Neutrophil 5.1 K/uL (1.8-8.0); Basophils % 1.1 % (0-1.3); Eosinophils % 1.2 % (0-4.4); Hematocrit 33.2 % (36.0-45.0); Hemoglobin 10.1 g/dL (12.0-15.0); Lymphocytes % 15.9 % (15.3-44.8); MCH 19.2 pg (27.0-35.0); MCHC 30.5 g/dL (32.0-36.0); MCV 62.9 fL (80-100); MPV 8.6 fL (7.6-11.3); Monocytes % 8.5 % (3.3-12.3); Neutrophils % 73.3 % (41.7-73.7); Platelets 342 thou/uL (152-406); RBC Red Blood Cell Count 5.28 M/uL (3.86-4.86); Red Cell Distribution Width 18.3 % (12.1-15.2)
[2024-09-20 12:15] LABS: Specific Gravity 1.006 (1.005-1.030); Sqamous Epithelial <5 /HPF (None Seen); Urine Bacteria <20 /HPF (<20); Urine Bilirubin NEGATIVE (Negative); Urine Blood 3+ (Negative); Urine Clarity Extremely Turbid (Clear); Urine Color Colorless (Yellow); Urine Crystals Unidentified Few /HPF (None Seen); Urine Culture Reflex Order REFLEXED; Urine Glucose NEGATIVE (Negative); Urine Ketones NEGATIVE (Negative); Urine Microscopic Reflex YN ORDER UMIC; Urine Nitrite NEGATIVE (Negative); Urine Protein NEGATIVE (Negative); Urine Urobilinogen Normal (Normal); Urine WBC >50 /HPF (<5); Urine WBC Clump Few /HPF (None Seen); Urine Yeast (Budding) Occasional /HPF (None Seen); Urine pH 5.5 (5.0-7.0)
[2024-09-20 12:26] LABS: Anion Gap 7.2 mEq/L (5.0-15.0); Potassium 4.2 mEq/L (3.5-5.1)
[2024-09-20 13:03] LABS: Blood Morphology Comment NOTED (NOT SEEN); Hypochromasia 2+; Microcytosis 2+; Platelet Estimate ADEQ; White Blood Cell Scan OK (OK)
--- NOTE | 2024-09-20 13:17 | RAD REPORT ---
EXAMINATION: CT Stone Protocol CLINICAL INDICATION: Female, 44 years old. dysuria TECHNIQUE: CT abdomen and pelvis was performed, without IV contrast, as per department protocol. Axia l, sagittal and coronal reconstructions were obtained. One or more of the following dose reduction techniques were used: Automated exposure control, adjustment of the mA and kV according to the patien t size, and iterative reconstruction. Unless otherwise specified, incidental findings do not require dedicated imaging follow-up. COMPARISON: No prior exam. FINDINGS: The lack of intravenous contrast limits the sensitivity of this exam for evaluation of solid visceral organs, vascular structures, and retroperitoneum. LOWER CHEST: The visualized lung bases are clear. LIVER: Normal in size and contour. No focal lesion. BILIARY SYSTEM: No suspicious abnormalities. SPLEEN: Normal size. No focal lesion. PANCREAS: No mass, ductal dilation, or jean claude-pancreatic fluid. ADRENALS: Normal; no mass. KIDNEYS AND URETERS: Normal size and contour. No hydronephrosis. URINARY BLADDER: Normal contour. GASTROINTESTINAL TRACT: No evidence of bowel obstruction, significant free fluid, free air or abscess . APPENDIX: Normal appendix. LYMPH NODES: No lymphadenopathy. MUSCULOSKELETAL: No acute or suspicious osseous abnormality. ADDITIONAL FINDINGS: Posterior pelvic fluid density cystic lesion measuring 5.0 x 3.6 x 5.6 cm, proba yisel of left adnexal origin, not well characterized.. IMPRESSION: No acute or concerning abnormalities in the abdomen or pelvis, with evaluation limited by lack of IV contrast. Incidentally noted pelvic 5.6 cm cystic lesion probably of left adnexal origin, not well characterize d. If felt to relate to the patient's symptoms, this can be further evaluated by dedicated pelvic ultrasound.
[2024-09-20] MEDS ORDERED: CEFTRIAXONE 1000 MG/VIAL ONE (14:24)
[2024-09-20] MEDS ORDERED: PHENAZOPYRIDINE 100MG TAB PO ONE (14:24)
[2024-09-20] MEDS ORDERED: NA CHLORIDE 0.9% 50 ML ONE (14:24)
--- NOTE | 2024-09-20 14:30 | EDPHYS ---
Physician Documentation [facility] Name: Maribell Krishnamurthy Age: 44 yrs Sex: Female : 1980 Arrival Date: 09/20/2024 Time: 11:20 Bed 17 Private MD: ED Physician Wang Mcgarry HPI: 09/20 14:26 This 44 yrs old Female presents to ER via Ambulatory with complaints of Pain rn With Urination. 14:26 The patient presents with urinary symptoms, dysuria, frequency. Onset: The rn symptoms/episode began/occurred 2 week(s) ago. Patient reports pain with urination, feels burning sensation and "razor blades". Patient reports finished round of ciprofloxacin and Macrobid initially felt better but now getting worse again. No fever chills or vomiting. No back pain. Reports mild suprapubic pain and small amount of blood in urine. No history of kidney stones. Denies difficult to treat urinary tract infections in the past.. 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 - Infectious Disease History:: Denies. - Social history:: Smoking status: Patient denies any tobacco usage or history of. - Family history:: not pertinent. - Hospitalizations: : No recent hospitalization is reported. ROS: 14:27 Constitutional: Negative for fever, chills, and weight loss, Cardiovascular: Negative rn for chest pain, palpitations, and edema, Respiratory: Negative for shortness of breath, cough, wheezing, and pleuritic chest pain, Abdomen/GI: Mild suprapubic abdominal pain Back: Negative for injury and pain, : Positive for dysuria and hematuria Exam: 14:27 Constitutional: This is a well developed, well nourished patient who is awake, alert, rn and in no acute distress. Cardiovascular: Regular rate and rhythm . No pulse deficits. Abdomen/GI: Soft, nontender Back: No CVA tenderness Vital Signs: 11:37 BP 139 / 99; Pulse 91; Resp 16 S; Temp 98.9(O); Pulse Ox 100% on R/A; Weight 67.59 kg aa5 (R); Height 5 ft. 0 in. (R); 12:30 BP 119 / 77; Pulse 82; Resp 15; Pulse Ox 99% ; cm10 13:00 BP 125 / 77; Pulse 76; Resp 15; Pulse Ox 100% on R/A; cm10 14:00 BP 122 / 82; Pulse 71; Resp 15; Pulse Ox 100% on R/A; cm10 11:37 Body Mass Index 29.10 (67.59 kg, 152.4 cm) aa5 MDM: 11:25 Medical Screening Exam initiated rn 14:27 Differential diagnosis: nonspecific abdominal pain, urinary tract infection, Urinary rn calculus, pyelonephritis. Data reviewed: vital signs, nurses notes, lab test result(s), radiologic studies, CT scan, and as a result, I will discharge patient. Counseling: I had a detailed discussion with the patient and/or guardian regarding the historical points, exam findings, and any diagnostic results supporting the discharge/admit diagnosis, lab results, radiology results, the need for outpatient follow up, to return to the emergency department if symptoms worsen or persist or if there are any questions or concerns that arise at home. Special discussion: I discussed with the patient/guardian in detail that at this point there is no indication for admission to the hospital. It is understood, however, that if the symptoms persist or worsen the patient needs to return immediately for re-evaluation. ED course: Normal WBC, no acute findings on CT abdomen pelvis. No evidence of pyelonephritis. Does show cystic pelvic lesion. Patient reports with her cycle gets intermittent right lower quadrant abdominal pain none left lower quadrant pain. Will treat urinary tract infection with cefpodoxime given she has taken 2 other antibiotics that has not completely treated. Spoke with patient and told her since she has frequent UTIs could be resistant and difficult to treat urinary tract infection, return precautions given and understood and, if fails this antibiotic will likely need admission to hospital. I have personally reviewed all of the results, including but not limited to blood tests and imaging deemed necessary to safely discharge this patient at this time. All results given to and printed out for patient. I personally went over all the results with the patient and answered all questions. Patient will follow-up with PCP and or specialist as discussed. Return precautions given and understood.. 09/20 11:29 Order name: CBC with Diff; Complete Time: 13:49 rn 09/20 11:29 Order name: Urinalysis w/ reflexes; Complete Time: 13:49 rn 09/20 11:29 Order name: Basic Metabolic Panel; Complete Time: 13:49 rn 09/20 11:55 Order name: Test, Urine; Complete Time: 13:49 cm10 09/20 12:18 Order name: Urine Culture EDRI 09/20 13:04 Order name: CBC Smear Scan; Complete Time: 13:49 EDRI 09/20 11:43 Order name: CT Stone Protocol; Complete Time: 13:49 rn 09/20 11:29 Order name: IV Saline Lock; Complete Time: 12:04 rn 09/20 11:29 Order name: Labs collected and sent; Complete Time: 12:04 rn Administered Medications: 14:37 Drug: Rocephin IV 1 grams IV at calculated rate once; Given slow IV push per pharmacy cm10 instructions Route: IV; Rate: calculated rate; Site: right forearm; 14:52 Follow up: Response: No adverse reaction; IV Status: Completed infusion; IV Intake: [id number] 14:37 Drug: Phenazopyridine PO 200 mg PO once Route: PO; cm10 14:52 Follow up: Response: No adverse reaction cm10 Disposition Summary: 09/20/24 14:29 Discharge Ordered Notes: Location: Home rn Problem: new rn Symptoms: have improved rn Condition: Stable rn Diagnosis - UTI/ Urinary tract infection, site not specified rn Followup: rn - With: Private Physician - When: As needed - Reason: Recheck today's complaints, Re-evaluation by your physician Discharge Instructions: - Discharge Summary Sheet rn - Dysuria rn - Urinary Tract Infection, Adult rn Forms: - Medication Reconciliation Form rn - Antibiotic brick burner head - Prescription Opioid Use rn - Patient Portal Instructions rn - Leadership Thank You Letter rn Prescriptions: - Pyridium 200 mg Oral Tablet - take 1 tablet ORAL route every 8 hours for 3 days; 9 tablet; Refills: 0, rn Product Selection Permitted - cefpodoxime 100 mg Oral Tablet - take 2 tablets ORAL route every 12 hours for 10 days take with food; 40 tablet; rn Refills: 0, Product Selection Permitted Signatures: Dispatcher [facility] GreeneWang Barney MD MD rn Calderon, Audri, RN RN aa5 Christi Cohen RN RN cm10 Corrections: (The following items were deleted from the chart) 11: CBC+H.LAB.BRZ ordered. EDMS EDMS 11: Urinalysis+U.LAB.BRZ ordered. EDMS EDMS 11: BASIC METABOLIC PANEL+C.LAB.BRZ ordered. EDMS EDMS
--- NOTE | 2024-09-20 14:30 | ER ---
Nurse's Notes [facility] Name: Maribell Krishnamurthy Age: 44 yrs Sex: Female : 1980 Arrival Date: 09/20/2024 Time: 11:20 Bed 17 Private MD: Diagnosis: UTI/ Urinary tract infection, site not specified Presentation: 09/20 11:37 Chief complaint: Patient states: painful urination that began Saturday. Coronavirus aa5 screen: At this time, the client does not indicate any symptoms associated with coronavirus-19. Ebola Screen: Patient denies travel to an Ebola-affected area in the 21 days before illness onset. Initial Sepsis Screen: Does the patient meet any 2 criteria? No. Patient's initial sepsis screen is negative. Does the patient have a suspected source of infection? No. Patient's initial sepsis screen is negative. Risk Assessment: Do you want to hurt yourself or someone else? Patient reports no desire to harm self or others. Onset of symptoms was September 2024. 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 - Infectious Disease History:: Denies. - Social history:: Smoking status: Patient denies any tobacco usage or history of. - Family history:: not pertinent. - Hospitalizations: : No recent hospitalization is reported. Screenin:[facility] ED Fall Risk Assessment (Adult) History of falling in the last 3 months, cm10 including since admission No falls in past 3 months (0 pts) Confusion or Disorientation No (0 pts) Intoxicated or Sedated No (0 pts) Impaired Gait No (0 pts) Mobility Assist Device Used No (0 pt) Altered Elimination No (0 pt) Score/Fall Risk Level 0 - 2 = Low Risk Oriented to surroundings, Maintained a safe environment, Hourly rounding (assess needs \T\ fall precautionary measures) done. Abuse screen: Denies threats or abuse. Denies injuries from another. Nutritional screening: No deficits noted. Tuberculosis screening: No symptoms or risk factors identified. Assessment: 12:00 General: Appears in no apparent distress. uncomfortable, Behavior is calm, cooperative. cm10 Pain: Complains of pain in back. Neuro: No deficits noted. Level of Consciousness is awake, alert, obeys commands, Oriented to person, place, time, situation, Appropriate for age. Respiratory: No deficits noted. Airway is patent Respiratory effort is even, unlabored, Respiratory pattern is regular, symmetrical. : Reports burning with urination, urinary frequency. 13:40 Reassessment: Patient appears in no apparent distress at this time. Patient and/or cm10 family updated on plan of care and expected duration. Pain level reassessed. Patient is alert, oriented x 3, equal unlabored respirations, skin warm/dry/pink. 14:10 Reassessment: Pt states that she is having burning with urination. provider made aware. cm10 14:52 Reassessment: Patient appears in no apparent distress at this time. Patient and/or cm10 family updated on plan of care and expected duration. Pain level reassessed. Patient is alert, oriented x 3, equal unlabored respirations, skin warm/dry/pink. Vital Signs: 11:37 BP 139 / 99; Pulse 91; Resp 16 S; Temp 98.9(O); Pulse Ox 100% on R/A; Weight 67.59 kg aa5 (R); Height 5 ft. 0 in. (R); 12:30 BP 119 / 77; Pulse 82; Resp 15; Pulse Ox 99% ; cm10 13:00 BP 125 / 77; Pulse 76; Resp 15; Pulse Ox 100% on R/A; cm10 14:00 BP 122 / 82; Pulse 71; Resp 15; Pulse Ox 100% on R/A; cm10 11:37 Body Mass Index 29.10 (67.59 kg, 152.4 cm) aa5 ED Course: 11:25 Patient arrived in ED. cj3 11:25 Wang Mcgarry MD is Attending Physician. rn 11:37 Arm band placed on. aa5 11:38 Triage completed. aa5 11:51 Christi Cohen, DANETTE is Primary Nurse. cm10 12:00 Patient has correct armband on for positive identification. Bed in low position. Call cm10 light in reach. Side rails up X 1. Provided Education on: ER PROCESS AND PROCEDURES. Pulse ox on. NIBP on. 12:04 Test, Urine Sent. cm10 12:04 CBC with Diff Sent. cm10 12:04 Urinalysis w/ reflexes Sent. cm10 12:04 Basic Metabolic Panel Sent. cm10 12:04 Initial lab(s) drawn, by me, sent to lab. Urine collected: clean catch specimen, cm10 cloudy. Inserted saline lock: 20 gauge in right forearm, using aseptic technique. Blood collected. Flushed with 10 mL NS. 12:44 CT Stone Protocol In Process Unspecified. EDMS 14:52 No provider procedures requiring assistance completed. IV discontinued, intact, cm10 bleeding controlled, No redness/swelling at site. Pressure dressing applied. Administered Medications: 14:37 Drug: Rocephin IV 1 grams IV at calculated rate once; Given slow IV push per pharmacy cm10 instructions Route: IV; Rate: calculated rate; Site: right forearm; 14:52 Follow up: Response: No adverse reaction; IV Status: Completed infusion; IV Intake: [id number] 14:37 Drug: Phenazopyridine PO 200 mg PO once Route: PO; cm10 14:52 Follow up: Response: No adverse reaction cm10 Medication: 12:00 VIS not applicable for this client. cm10 Intake: 14:52 IV: 50ml; Total: 50ml. cm10 Outcome: 14:29 Discharge ordered by . rn 14:52 Discharged to home ambulatory, with significant other, cm10 14:52 Condition: good 14:52 Discharge instructions given to patient, Instructed on discharge instructions, follow up and referral plans. medication usage, Demonstrated understanding of instructions, follow-up care, medications, Prescriptions given X 2, 14:52 Patient left the ED. cm10 Signatures: Dispatcher [employer] EDMS Wang Mcgarry MD MD rn Calderon, Audri RN RN aa5 Christi Cohen RN RN cm10 Darlene Greer [email or web address] Corrections: (The following items were deleted from the chart) 11:39 11:37 Chief complaint: Patient states: painful urination x aa5 aa5 11:42 11:37 Acuity: NUSRAT 4 aa5 aa5
[2024-09-20 15:48] VITALS: BP 122/82; O2SAT 100
== END 2024-09-20 14:52 | disposition home or self-care (01) ==
LOC: ER 11:20
DX: N39.0 Urinary tract infection, site not specified (principal)
CPT/HCPCS: 36415; 74176; 76377; 80048; 81001; 81025; 85025; 87086; 87088; 96374; 99284; J0696

== ENCOUNTER 2024-09-23 17:44 | Emergency (ER) | payer SELFPAY ==
--- OUTSIDE RECORDS SUMMARY | 2024-09-23 17:58 | XMS REPORT | Continuity of Care Document ---
Author Name Unknown Address [address] [place] [address] Organization [facility] [place] Address [address] [place] [address] Care Team Providers Care Social Worker Assistant Name Role Phone JAIME OVIEDO Primary Care Physician Aleyda Macdonald MD, Reginaldo Durant Attending Clinician [phone] NILE RICHARDS Attending Clinician Unavailable Nile Richards MD Attending Clinician + [phone] YARELIS REILLY Attending Clinician Unavailable MARYURI TRAN Attending Clinician Unavailable MARYURI TRAN Attending Clinician Unavailable Maryuri Tran MD Attending Clinician [phone] BARB MARS Attending Clinician UnavailJace Douglas Attending Clinician [phone] Barb Mars MD Attending Clinician [phone] RICK FELIX Attending Clinician Unavail able Rick Felix MD Attending Clinician [phone] PRASHANTH NUR Attending Clinician Unavailable Ladan Lamar MD Attending Clinician [phone] Yarelis Feliciano Attending Clinician [phone] KRISTINE SHI Attending Clinician Unavailable Kristine Shi MD Attending Clinician + [phone] Yarelis Feliciano Attending Clinician [phone] Room, Aesthetic Laser Attending Clinician Roxana harris Doctor Unassigned, [place] Attending Clinician U HI Goetz Attending Clinician Unavailable HI CRAWLEY Attending Clinician Unavailable BRITTANY KO Attending Clinician LASHAUN Mane Attending Clinician Unavaila Brittany Fiore Attending Clinician [phone] Mayo Sigala Attending Clinician + [phone] MAYO SALAZAR Attending Clinician Unavaila RIGOBERTO Valadez Attending Clinician Unavailab dalia Romo MD, Rigoberto Attending Clinician [phone] Nile Richards MD Attending Clinician [phone] Irma STANFORD, Savannah Attending Clinician [phone] DANA JENNINGS Attending Clinician Unavail able SAURAV NORRIS Attending Clinician Unavailable PHILIPPE NGUYEN Attending Clinician Unavailabl Rosenda Boswell DO Attending Clinician [phone] Valentin Huff DO Attending Clinician +[phone] Hui Mas MD Attending Clinician [phone] Dar Sethi RN, Jennifer Attending Clinician Unavailable Lab, Adc F[facility] Pob I Attending Clinician Unavailab Connie Birmingham Attending Clinician [phone] CONNIE ALARCON Attending Clinician Unavailable DERRICK SALES Attending Clinician Unavailable JACE ARVIZU Admitting Clinician Unavaila ble Payers Payer Name Policy Type Policy Number Effective Date Expirati on Date Source Problems Condition Name Condition Details Condition Category Status Onset Date Resolution Date Last Treatment Date Treating Clinician Comments Source Bleeding internal hemorrhoid s Bleeding internal hemorrhoid s Disease Active 07-02 00:00: 00 [facility] Rectal bleeding Rectal bleeding Disease Active 07-31 00:00: 00 [facility] GI bleed GI bleed Disease Active 02-25 00:00: 00 [facility] GIB (gastroint estinal bleeding) GIB (gastroint estinal bleeding) Disease Active 9-17 00:00: 00 [facility] BV (bacterial vaginosis) BV (bacterial vaginosis) Disease Active 10-20 00:00: 00 [facility] UTI symptoms UTI symptoms Disease Active 10-20 00:00: 00 [facility] Contracept ion management Contracept ion management Disease Active 07-15 00:00: 00 [facility] Yeast infection of the vagina Yeast infection of the vagina Disease Active 07-15 00:00: 00 [facility] Dysmenorrh ea Dysmenorrh ea Disease Active 07-15 00:00: 00 [facility] History of anxiety History of anxiety Disease Active 07-15 00:00: 00 [facility] Dental cavities Dental cavities Disease Active 07-15 00:00: 00 [facility] Overweight Overweight Disease Active 07-09 00:00: 00 Overview: Formattin g of this note might be different from the original. 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 Utility [facility] Immunizati ons up to date Immunizati ons up to date Disease Resolve d 07-09 00:00: 00 2015-07-15 00:00:00 2015-07-15 14:33:29 [facility] Allergies, Adverse Reactions, Alerts Allergy Name Allergy Type Status Severity Reaction(s) Onset Date Inactive Date Treating Clinician Comments Source Penicill ins Propensi ty to adverse reaction to drug Active 3-25 00:00: 00 Tashi Booth Bactrim Propensi ty to adverse reaction to drug Active 8-23 00:00: 00 Tashi Booth SULFA (SULFONA MIDE ANTIBIOT ICS) Drug Class Active Hives 5-18 00:00: 00 [facility] Sulfa (Sulfona mide Antibiot ics) Propensi ty to adverse reaction s Active Hives 10-25 00:00: 00 [facility] SULFAMET HOXAZOLE -TRIMETH OPRIM DRUG Active Med Rash 07-31 00:00: 00 [facility] Sulfamet hoxazole -Trimeth oprim Propensi ty to adverse reaction s Active Rash 07-31 00:00: 00 [facility] Bactrim - Oral Propensi ty to adverse reaction to drug Active 2021-06 00:00: 00 Tashi Jerald Booth Penicill in Propensi ty to adverse reaction s Active Shortness of Breath 2018-06 00:00: 00 [facility] PENICILL IN DRUG INGREDI Active SOB 2018-06 00:00: 00 [facility] Social History Social Habit Start Date Stop Date Quantity Comments Source [facility] History of Social function 2024-08-31 00:00:00 2024-08-31 00:00:00 [facility] Alcoholic beverage intake 2024-08-31 00:00:00 2024-08-31 00:00:00 Current non-drinker of alcohol (finding) [facility] Alcohol intake 2023-08-20 00:00:00 2023-08-20 00:00:00 Current non-drinker of alcohol (finding) [facility] Exposure to SARS-CoV-2 (event) 2022-10-15 00:00:00 2022-10-25 11:11:00 Not sure [facility] Tobacco use and exposure 2022-07-12 00:00:00 2022-07-12 00:00:00 Smokeless tobacco non-user [facility] Sex assigned at 1980 00:00:00 1980 00:00:00 [facility] Smoking Status Start Date Stop Date Source Never smoked tobacco [facility] Medications Ordered Medication Name Filled Medication Name Start Date Stop Date Current Medication? Ordering Clinician Indication Dosage Frequency Signature (SIG) Comments Components Source ciprofloxac in 500 mg tablet 4- 00:00: 00 Yes 1mg Tashi Jerald Booth hydroxyzine HCl 25 mg tablet 3- 00:00: 00 Yes 1mg Tashi Jerald Booth Macrobid 100 mg capsule 09-01 00:00: 00 Yes 1mg Tashi Booth HYDROCORTIS ONE-HYDROQU INONE-TRETI NOIN 1-6-0.025 % TOPICAL CREAM 09-01 00:00: 00 Yes [id number] Apply to area(s) at bedtime. [facility] spironolact one 50 mg tablet 08-31 00:00: 00 Yes [id number] 150mg Take 3 tablets by mouth at bedtime. Take 3 tablets daily [facility] tranexamic acid 650 mg tablet 08-31 00:00: 00 Yes [id number] 325mg Take 0.5 tablets by mouth in the morning and 0.5 tablets in the evening. [facility] HYDROCORTIS ONE-HYDROQU INONE-TRETI NOIN 1-6-0.025 % TOPICAL CREAM 08-31 00:00: 00 09-01 00:00 :00 No [id number] Apply to area(s) at bedtime. [facility] tranexamic acid 650 mg tablet 2-13 00:00: 00 08-31 00:00 :00 No [id number] 325mg Take 0.5 tablets by mouth in the morning and 0.5 tablets in the evening. [facility] hydrocortis one 25 mg suppository 07-02 00:00: 00 Yes [id number] 25mg Insert 1 Suppositor y into rectum in the morning and 1 Suppositor y in the evening. [facility] iopamidol (ISOVUE 370-500 mL) injection 80 mL -04 23:10: 00 06-13 23:10 :00 No [id number] 80mL 80 mL, Intravenou s, ONCE, 1 dose, On 06/13/24 at 1730, Routine [facility] hydrocortis one 2.5 % rectal cream 1-04 00:00: 00 07-02 00:00 :00 No [id number] Insert into rectum 2 (two) times daily. [facility] hydrocortis one 25 mg suppository 1-04 00:00: 00 06-24 05:59 :00 No [id number] 25mg Insert 1 Suppositor y into rectum in the morning and 1 Suppositor y in the evening. Do all this for 10 days. [facility] spironolact one 50 mg tablet 2023-06 00:00: 00 08-31 00:00 :00 No [id number] 150mg Take 3 tablets by mouth at bedtime. Take 3 tablets daily [facility] minoxidiL-f inasteride 7-0.1 % Soln 2023-06 00:00: 00 07-02 00:00 :00 No [id number] 1{appli cation} Apply 1 Applicatio n to area(s) in the morning. [facility] spironolact one 25 mg tablet 2023-06 00:00: [...] 01-08 00:00: 00 08-31 00:00 :00 No [id number] Apply to area(s) at bedtime. [facility] spironolact one 50 mg tablet 01-08 00:00: 00 06-01 00:00 :00 No [id number] 100mg Take 2 tablets by mouth at bedtime. [facility] hydroxyzine HCl 25 mg tablet 12-18 00:00: [...] 1 TABLET DAILY. 08-26 00:00: 00 Yes [id number] Tashi Booth TAKE 5 ML EVERY 4 TO 6 HOURS NEEDED. 08-26 00:00: 00 10-15 00:00 :00 No [id number] Tashi Booth TAKE 2 TABLETS ON DAY [...] - 00:00: 00 09-29 04:59 :00 No [id number] Apply to area(s) at bedtime for 90 days. [facility] TWICE DAILY BY MOUTH 1-15 00:00: 00 [...] 4-0.025-0.5 % Emul 5-18 00:00: 00 Yes [id number] 1{appli cator} Apply 1 Applicator to area(s) in the morning. [facility] tretinoin 0.025 % cream 5-18 00:00: 00 Yes Apply to affected area(s) at bedtime. [facility] hydroquin-t retinoin-hy drocort 4-0.025-0.5 % Emul 5-18 00:00: 00 07-01 00:00 :00 No [id number] 1{appli cator} Apply 1 Applicator to area(s) in the morning. [facility] TAKE 1/2 TABLET BY MOUTH IN THE MORNING AND 1/2 TABLET IN THE EVENING 0 4-20 00:00: 00 Yes Tashi Booth tranexamic acid 650 mg tablet 4-20 00:00: 00 07-23 00:00 :00 No [id number] 325mg Take 0.5 tablets by mouth in the morning and 0.5 tablets in the evening. [facility] TAKE 1 TABLET TWICE DAILY WITH FOOD FOR 5 DAYS NEEDED FOR FLARE-UPS. 4-08 00:00: 00 10-15 00:00 :00 No 20 Tashi Booth TAKE 1 TABLET 3 TIMES DAILY AFTER MEALS NEEDED 0 2-24 00:00: 00 10-15 00:00 :00 No 100 Tashi Booth tranexamic acid 650 mg tablet 0 2-02 00:00: 00 Yes [id number] Take 1/2 tablet BID [facility] TRIAMCINOLO NE ACETONIDE-H YDROQUINONE -TRETINOIN 0.025-4-0.0 25 % TOPICAL CREAM 2-02 00:00: 00 07-01 00:00 :00 No [id number] Apply to area(s) at bedtime. [facility] TAKE 1 TABLET DAILY. 07-07 00:00: 00 10-15 00:00 :00 No 750 Tashi Booth TWICE DAILY BY MOUTH 06-19 00:00: 00 10-15 00:00 :00 No 100 Tashi Booth TAKE DIRECTED. 2021-06 00:00: 00 10-15 00:00 :00 No [id number] Tashi Booth Dose Unknown 2021-0 9 00:00: [...] % rectal cream 06-15 00:00: 00 Yes [id number] Insert into rectum 2 (two) times daily. [facility] TRIAMCINOLO NE ACETONIDE-H YDROQUINONE -TRETINOIN 0.025-4-0.0 25 % TOPICAL CREAM 2020-06 2 00:00: 00 07-12 00:00 :00 No [id number] Apply to area(s) at bedtime. [facility] tranexamic acid 650 mg tablet 2020-06 00:00: 00 Yes [id number] 325mg Take 0.5 tablets by mouth 2 (two) times daily. [facility] Dose Unknown 02-07 00:00: 00 No Augmentin [...] 11-23 00:00: 00 07-02 00:00 :00 No [id number] 100mg Take 1 capsule by mouth daily. Take capsule by mouth once daily with a meal for 7 days when acne flares. [facility] tretinoin 0.025 % cream 11-23 00:00: 00 10-25 00:00 :00 No [id number] Apply to affected area(s) at bedtime. [facility] lidocaine 4 % topical patch 10-14 00:00: [...] capsule 10-05 00:00: 00 Yes 1mg Tashi Booth propranoloL 20 mg tablet 02-24 00:00: 00 Yes [id number] 20mg Take 1 tablet by mouth 2 (two) times daily. [facility] Macrobid 100 mg capsule - 00:00: 00 [...] mg-160 mg tablet 2019-0 7-19 00:00: 00 Yes 1mg Tashi Jerald Leobardo amoxicillin 500 mg tablet 2019-0 2-19 00:00: 00 No 1mg amoxicillin 500 mg tablet 0 2-19 00:00: 00 No 1mg amoxicillin 500 mg tablet 2019-0 2-19 00:00: 00 No 1mg amoxicillin 500 mg tablet 2019-0 2-19 00:00: 00 No 1mg amoxicillin 500 mg tablet 0 2-19 00:00: 00 No 1mg amoxicillin 500 mg tablet 2019-0 2-19 00:00: 00 Yes 1mg Tashi Jerald Leobardo penicillin V potassium 500 mg tablet 2019-0 [...] 2019-0 2-18 00:00: 00 Yes 1mg Tashi Jerald Leobardo oxybutynin chloride 5 mg tablet 2019-0 2-13 [...] 2-13 00:00: 00 Yes 1mg Tashi Booth clindamycin 1 % solution 2018-06 00:00: 00 07-02 00:00 :00 No [id number] Apply to affected area(s) 2 (two) times daily. [facility] doxycycline 100 mg tablet 2018-06 00:00: 00 07-02 00:00 :00 No [id number] 100mg Take 1 tablet by mouth 2 (two) times daily. [facility] SUMAtriptan 50 mg tablet 2018-06 00:00: 00 Yes [id number] Take 25mg (half tablet) at onset of migraine, if not relieved in 2 hours you can take an additional 25mg [facility] Macrobid 100 mg capsule 12-05 00:00: 00 No 1mg Macrobid 100 mg capsule 12-05 00:00: 00 No 1mg Macrobid 100 mg capsule 12-05 00:00: 00 No 1mg Macrobid 100 mg capsule 12-05 00:00: 00 No 1mg Macrobid 100 mg capsule 12-05 00:00: 00 No 1mg Macrobid 100 mg capsule 12-05 00:00: 00 Yes 1mg Tashi eJrald Leobardo ferrous sulfate (IRON) 325 mg (65 mg iron) tablet 08-13 00:00: 00 Yes [id number] 325mg Take 1 tablet by mouth daily. [facility] Methylcellu lose, Laxative, (FIBER LAXATIVE, METHYLCELLU LO,) 500 mg tablet 08-01 00:00: 00 Yes [id number] 500mg Take 1 tablet by mouth 2 (two) times daily. [facility] hydrocortis one 2.5 % rectal cream 08-01 00:00: 00 Yes [id number] Insert into rectum 2 (two) times daily. Apply twice daily for one week [facility] citalopram 20 mg tablet 2017-06 00:00: 00 [...] 2017-06 00:00: 00 Yes 1mg Tashi Booth Vitamin D2 50,000 unit capsule [...] 12-24 00:00: 00 Yes 1unit Tashi Booth propranolol 10 mg tablet 11-14 00:00: 00 [...] tablet 11-14 00:00: 00 Yes 1mg Tashi Booth amitriptyli ne 10 mg tablet 11-14 00:00: 00 Yes 1mg Tashi Booth tamsulosin 0.4 mg 24 hr capsule 2016-06 00:00: 00 Yes .4mg Take 1 capsule by mouth at bedtime. [facility] ciprofloxac in 250 mg tablet 01-29 00:00: 00 No 1mg ciprofloxac in 250 mg tablet 01-29 00:00: 00 No 1mg ciprofloxac in 250 mg tablet 01-29 00:00: 00 No 1mg ciprofloxac in 250 mg tablet 01-29 00:00: 00 No 1mg ciprofloxac in 250 mg tablet 01-29 00:00: 00 No 1mg ciprofloxac in 250 mg tablet 01-29 00:00: 00 Yes 1mg Tashi Booth Flagyl 500 mg tablet 01-26 00:00: 00 No 1mg Flagyl 500 mg tablet 01-26 00:00: 00 No 1mg Flagyl 500 mg tablet 01-26 00:00: 00 No 1mg Flagyl 500 mg tablet 01-26 00:00: 00 No 1mg Flagyl 500 mg tablet 01-26 00:00: 00 No 1mg Flagyl 500 mg tablet 01-26 00:00: 00 Yes 1mg Tashi Booth clotrimazol e 1 % vaginal [...] 10-05 00:00: 00 Yes 1% Tashi Booth ibuprofen 800 mg tablet 09-27 [...] 09-27 00:00: 00 Yes 1mg Tashi Booth Anusol-HC 25 mg suppository 2014-06 00:00: 00 No 1mg Anusol-HC 25 mg suppository 2014-06 00:00: 00 No 1mg Anusol-HC 25 mg suppository 2014-06 00:00: 00 No 1mg Anusol-HC 25 mg suppository 2014-06 00:00: 00 No 1mg Anusol-HC 25 mg suppository 2014-06 00:00: 00 No 1mg Anusol-HC 25 mg suppository 2014-06 00:00: 00 Yes 1mg Tashi Booth Bactrim DS 800 mg-160 mg tablet 2014-06 00:00: 00 No 1mg ibuprofen 800 mg tablet 2014-06 00:00: 00 No 1mg phenazopyri dine 100 mg tablet 2014-06 00:00: 00 No 1mg Bactrim DS 800 mg-160 mg tablet 2014-06 00:00: 00 No 1mg Bactrim DS 800 mg-160 mg tablet 2014-06 00:00: 00 No 1mg ibuprofen 800 mg tablet 2014-06 00:00: 00 No 1mg phenazopyri dine 100 mg tablet 2014-06 00:00: 00 No 1mg ibuprofen 800 mg tablet 2014-06 00:00: 00 No 1mg phenazopyri dine 100 mg tablet 2014-06 00:00: 00 No 1mg Bactrim DS 800 mg-160 mg tablet 2014-06 00:00: 00 No 1mg ibuprofen 800 mg tablet 2014-06 00:00: 00 No 1mg phenazopyri dine 100 mg tablet 2014-06 00:00: 00 No 1mg Bactrim DS 800 mg-160 mg tablet 2014-06 00:00: 00 No 1mg ibuprofen 800 mg tablet 2014-06 00:00: 00 No 1mg phenazopyri dine 100 mg tablet 2014-06 00:00: 00 No 1mg Bactrim DS 800 mg-160 mg tablet 2014-06 00:00: 00 Yes 1mg Tashi Booth ibuprofen 800 mg tablet 2014-06 00:00: 00 Yes 1mg Tashi Booth phenazopyri dine 100 mg tablet 2014-06 00:00: 00 Yes 1mg Tashi Booth Immunizations Ordered Immunization Name Filled Immunization Name Date Status Comments Source Rubella 2024-02-03 13:00:00 Completed [facility] TDAP 2024-02-03 13:00:00 Completed [facility] Influenza Virus Vaccine Quad .5 mL IM 6+ MO (FLUZONE/FLULAVAL/F LUARIX) 2024-02-03 13:00:00 Completed [facility] SARS-COV-2 COVID-19 MODERNA 12+ YRS VACCINE 2024-02-03 13:00:00 Completed [facility] Rubella 2023-10-28 14:30:00 Completed [facility] TDAP 2023-10-28 14:30:00 Completed [facility] Influenza Virus Vaccine Quad .5 mL IM 6+ MO (FLUZONE/FLULAVAL/F LUARIX) 2023-10-28 14:30:00 Completed [facility] SARS-COV-2 COVID-19 MODERNA 12+ YRS VACCINE 2023-10-28 14:30:00 Completed [facility] Rubella 2023-08-19 11:15:00 Completed [facility] TDAP 2023-08-19 11:15:00 Completed [facility] Influenza Virus Vaccine Quad .5 mL IM 6+ MO (FLUZONE/FLULAVAL/F LUARIX) 2023-08-19 11:15:00 Completed [facility] SARS-COV-2 COVID-19 MODERNA 12+ YRS VACCINE 2023-08-19 11:15:00 Completed [facility] Rubella 2023-08-19 00:00:00 Completed [facility] TDAP 2023-08-19 00:00:00 Completed [facility] Influenza Virus Vaccine Quad .5 mL IM 6+ MO (FLUZONE/FLULAVAL/F LUARIX) 2023-08-19 00:00:00 Completed [facility] SARS-COV-2 COVID-19 MODERNA 12+ YRS VACCINE 2023-08-19 00:00:00 Completed [facility] Influenza Virus Vaccine Quad .5 mL IM 6+ MO (FLUZONE/FLULAVAL/F LUARIX) 2023-07-01 09:30:00 Completed [facility] SARS-COV-2 COVID-19 MODERNA 12+ YRS VACCINE 2023-07-01 09:30:00 Completed [facility] Rubella 2023-07-01 09:30:00 Completed [facility] TDAP 2023-07-01 09:30:00 Completed [facility] Rubella 2023-07-01 00:00:00 Completed [facility] TDAP 2023-07-01 00:00:00 Completed [facility] Influenza Virus Vaccine Quad .5 mL IM 6+ MO (FLUZONE/FLULAVAL/F LUARIX) 2023-07-01 00:00:00 Completed [facility] SARS-COV-2 COVID-19 MODERNA 12+ YRS VACCINE 2023-07-01 00:00:00 Completed [facility] Rubella 2023-05-20 10:00:00 Completed [facility] TDAP 2023-05-20 10:00:00 Completed [facility] Influenza Virus Vaccine Quad .5 mL IM 6+ MO (FLUZONE/FLULAVAL/F LUARIX) 2023-05-20 10:00:00 Completed [facility] SARS-COV-2 COVID-19 MODERNA 12+ YRS VACCINE 2023-05-20 10:00:00 Completed [facility] Rubella 2023-05-20 00:00:00 Completed [facility] TDAP 2023-05-20 00:00:00 Completed [facility] Influenza Virus Vaccine Quad .5 mL IM 6+ MO (FLUZONE/FLULAVAL/F LUARIX) 2023-05-20 00:00:00 Completed [facility] SARS-COV-2 COVID-19 MODERNA 12+ YRS VACCINE 2023-05-20 00:00:00 Completed [facility] Rubella 2023-03-29 09:30:00 Completed [facility] TDAP 2023-03-29 09:30:00 Completed [facility] Influenza Virus Vaccine Quad .5 mL IM 6+ MO (FLUZONE/FLULAVAL/F LUARIX) 2023-03-29 09:30:00 Completed [facility] SARS-COV-2 COVID-19 MODERNA 12+ YRS VACCINE 2023-03-29 09:30:00 Completed [facility] Rubella 2023-03-29 00:00:00 Completed [facility] TDAP 2023-03-29 00:00:00 Completed [facility] Influenza Virus Vaccine Quad .5 mL IM 6+ MO (FLUZONE/FLULAVAL/F LUARIX) 2023-03-29 00:00:00 Completed [facility] SARS-COV-2 COVID-19 MODERNA 12+ YRS VACCINE 2023-03-29 00:00:00 Completed [facility] Rubella 2023-03-27 00:00:00 Completed [facility] TDAP 2023-03-27 00:00:00 Completed [facility] Influenza Virus Vaccine Quad .5 mL IM 6+ MO (FLUZONE/FLULAVAL/F LUARIX) 2023-03-27 00:00:00 Completed [facility] SARS-COV-2 COVID-19 MODERNA 12+ YRS VACCINE 2023-03-27 00:00:00 Completed [facility] HPV9 HPV9 2023-03-07 00:00:00 Completed Tashi Booth SARS-COV-2 COVID-19 MODERNA 12+ YRS VACCINE 2020-09-26 00:00:00 Completed [facility] SARS-COV-2 COVID-19 MODERNA 12+ YRS VACCINE 2020-09-26 00:00:00 Completed [facility] SARS-COV-2 COVID-19 MODERNA 12+ YRS VACCINE 2020-09-26 00:00:00 Completed [facility] SARS-COV-2 COVID-19 MODERNA 12+ YRS VACCINE 2020-09-26 00:00:00 Completed [facility] SARS-COV-2 COVID-19 MODERNA 12+ YRS VACCINE 2020-09-26 00:00:00 Completed [facility] SARS-COV-2 COVID-19 MODERNA VACCINE 2020-09-26 00:00:00 Completed [facility] SARS-COV-2 COVID-19 MODERNA VACCINE 2020-09-26 00:00:00 Completed [facility] SARS-COV-2 COVID-19 MODERNA 12+ YRS VACCINE 2020-09-26 00:00:00 Completed [facility] SARS-COV-2 COVID-19 MODERNA 12+ YRS VACCINE 2020-09-26 00:00:00 Completed [facility] SARS-COV-2 COVID-19 MODERNA 12+ YRS VACCINE 2020-09-26 00:00:00 Completed [facility] SARS-COV-2 COVID-19 MODERNA 12+ YRS VACCINE 2020-09-26 00:00:00 Completed [facility] SARS-COV-2 COVID-19 MODERNA 12+ YRS VACCINE 2020-09-26 00:00:00 Completed [facility] Influenza Virus Vaccine Quad .5 mL IM 6+ MO 2018-08-01 00:00:00 Completed [facility] Influenza Virus Vaccine Quad .5 mL IM 6+ MO 2018-08-01 00:00:00 Completed [facility] Influenza Virus Vaccine Quad .5 mL IM 6+ MO 2018-08-01 00:00:00 Completed [facility] Influenza Virus Vaccine Quad .5 mL IM 6+ MO 2018-08-01 00:00:00 Completed [facility] Influenza Virus Vaccine Quad .5 mL IM 6+ MO 2018-08-01 00:00:00 Completed [facility] Influenza Virus Vaccine Quad .5 mL IM 6+ MO 2018-08-01 00:00:00 Completed [facility] Influenza Virus Vaccine Quad .5 mL IM 6+ MO 2018-08-01 00:00:00 Completed [facility] Influenza Virus Vaccine Quad .5 mL IM 6+ MO 2018-08-01 00:00:00 Completed [facility] Influenza Virus Vaccine Quad .5 mL IM 6+ MO 2018-08-01 00:00:00 Completed [facility] Influenza Virus Vaccine Quad .5 mL IM 6+ MO 2018-08-01 00:00:00 Completed [facility] Influenza Virus Vaccine Quad .5 mL IM 6+ MO 2018-08-01 00:00:00 Completed [facility] Influenza Virus Vaccine Quad .5 mL IM 6+ MO 2018-08-01 00:00:00 Completed [facility] TDAP 2011-12-27 00:00:00 Completed [facility] TDAP 2011-12-27 00:00:00 Completed [facility] TDAP 2011-12-27 00:00:00 Completed [facility] TDAP 2011-12-27 00:00:00 Completed [facility] TDAP 2011-12-27 00:00:00 Completed [facility] TDAP 2011-12-27 00:00:00 Completed [facility] TDAP 2011-12-27 00:00:00 Completed [facility] TDAP 2011-12-27 00:00:00 Completed [facility] TDAP 2011-12-27 00:00:00 Completed [facility] TDAP 2011-12-27 00:00:00 Completed [facility] TDAP 2011-12-27 00:00:00 Completed [facility] TDAP 2011-12-27 00:00:00 Completed [facility] Rubella 2009-12-07 00:00:00 Completed [facility] Rubella 2009-12-07 00:00:00 Completed [facility] Rubella 2009-12-07 00:00:00 Completed [facility] Rubella 2009-12-07 00:00:00 Completed [facility] Rubella 2009-12-07 00:00:00 Completed [facility] Rubella 2009-12-07 00:00:00 Completed [facility] Rubella 2009-12-07 00:00:00 Completed [facility] Rubella 2009-12-07 00:00:00 Completed [facility] Rubella 2009-12-07 00:00:00 Completed [facility] Rubella 2009-12-07 00:00:00 Completed [facility] Rubella 2009-12-07 00:00:00 Completed [facility] Rubella 2009-12-07 00:00:00 Completed [facility] Vital Signs Vital Name Observation Time Observation Value Comments S ource Body height 2024-08-31 15:53:00 152.4 cm [facility] Body weight 2024-08-31 15:53:00 68.493 kg [facility] BMI 2024-08-31 15:53:00 29.49 kg/m2 [facility] Systolic blood pressure 2024-07-02 16:17:00 131 mm[Hg] [facility] Diastolic blood pressure 2024-07-02 16:17:00 87 mm[Hg] [facility] Heart rate 2024-07-02 16:17:00 90 /min [facility] Body temperature 2024-07-02 16:17:00 36.17 Delphine [facility] Respiratory rate 2024-07-02 16:17:00 20 /min [facility] Body height 2024-07-02 16:17:00 149.9 cm [facility] Body weight 2024-07-02 16:17:00 69.4 kg [facility] BMI 2024-07-02 16:17:00 30.90 kg/m2 [facility] Oxygen saturation in Arterial blood by Pulse oximetry 2024-07-02 16:17:00 100 /min [facility] Systolic blood pressure 2024-06-14 01:35:00 114 mm[Hg] [facility] Diastolic blood pressure 2024-06-14 01:35:00 79 mm[Hg] [facility] Heart rate 2024-06-14 01:35:00 95 /min [facility] Body temperature 2024-06-14 01:35:00 36.39 Delphine [facility] Oxygen saturation in Arterial blood by Pulse oximetry 2024-06-14 01:35:00 100 /min [facility] Respiratory rate 2024-06-14 01:15:00 18 /min [facility] Body height 2024-06-13 19:28:00 152.4 cm [facility] Body weight 2024-06-13 19:28:00 70.308 kg [facility] BMI 2024-06-13 19:28:00 30.27 kg/m2 [facility] Body height 2023-05-20 15:57:00 152.4 cm [facility] Systolic blood pressure 2023-03-29 14:43:00 130 mm[Hg] [facility] Diastolic blood pressure 2023-03-29 14:43:00 84 mm[Hg] [facility] Heart rate 2023-03-29 14:43:00 75 /min [facility] Body weight 2023-03-29 14:43:00 68.493 kg [facility] BMI 2023-03-29 14:43:00 26.75 kg/m2 [facility] Body height 2022-10-25 16:19:00 160 cm [facility] Body height 2022-07-12 15:21:00 152.4 cm [facility] Systolic blood pressure 2021-11-24 15:15:00 134 mm[Hg] [facility] Diastolic blood pressure 2021-11-24 15:15:00 84 mm[Hg] [facility] Heart rate 2021-11-24 15:15:00 85 /min [facility] 2021-11-24 15:15:00 20 /min [facility] Body height 2021-11-24 15:15:00 152.4 cm [facility] Body weight 2021-11-24 15:15:00 68.72 kg [facility] BMI 2021-11-24 15:15:00 29.59 kg/m2 [facility] Oxygen saturation in Arterial blood by Pulse oximetry 2021-11-24 15:15:00 99 /min [facility] o [facility] BP Systolic 2024-09-09 11:06:00 138 mm[Hg] Step [...] PREPARE PACKED RBC 2024-06-13 23:27:13 Jace Arvizu [facility] CT ANGIOGRAM ABDOMEN/PELVIS 2024-06-13 23:18:37 Jace Arvizu [facility] HB ABO GROUPING 2024-06-13 21:48:00 Jace Arvizu [facility] POCT TEST 2024-06-13 21:09:00 Jace Arvizu [facility] BASIC METABOLIC PANEL (NA, K, CL, CO2, GLUCOSE, BUN, CREATININE, CA) 2024-06-13 20:29:00 Jace Arvizu [facility] CBC WITH DIFF 2024-06-13 20:29:00 Jace Arvizu [facility] CONSENT/REFUSAL FOR DIAGNOSIS AND TREATMENT 2023-08-19 15:29:57 Doctor Unassigned, [facility] DISCLOSURE AND CONSENT, MEDICAL AND SURGICAL PROCEDURES 2023-07-01 06:01:00 Doctor Unassigned, [facility] DISCLOSURE AND CONSENT, MEDICAL AND SURGICAL PROCEDURES 2023-05-20 06:01:00 Doctor Unassigned, [facility] DISCLOSURE AND CONSENT, MEDICAL AND SURGICAL PROCEDURES 2023-03-29 05:01:00 Doctor Unassigned, [facility] [id number] Colposcopy Cervix Endocervical Curettage 2023-03-07 00:00:00 Tsahi Booth DISCLOSURE AND CONSENT, MEDICAL AND SURGICAL PROCEDURES 2023-02-04 05:01:00 Doctor Unassigned, [facility] REFERRAL- REQUEST/RESPONSE 2023-01-18 05:01:00 Doctor Unassigned, [facility] PATIENT FINANCIAL POLICY 2022-09-21 15:07:23 Doctor Unassigned, [facility] PATIENT FINANCIAL RESPONSIBILITY - ALL FORMS 2022-07-31 06:01:00 Doctor Unassigned, [facility] CONSENT/REFUSAL FOR DIAGNOSIS AND TREATMENT 2022-07-12 14:48:06 Doctor Unassigned, [facility] EXTERNAL PROVIDER RECORDS 2021-12-08 05:01:00 Do ctor Unassigned, [facility] Plan of Care Planned Activity Planned Date Details Comments Source Goal Plan of Care Note [code = 02362-0] Goal Plan of Care Note [code = 21143-9] Goal Plan of Care Note [code = 55671-8] Goal Plan of Care Note [code = 52992-6] Goal Plan of Care Note [code = 81238-5] Goal Plan of Care Note [code = 82316-3] Goal Plan of Care Note [code = 87793-4] Goal Plan of Care Note [code = 23202-1] Goal Plan of Care Note [code = 80578-1] Goal Plan of Care Note [code = 80176-5] Goal Plan of Care Note [code = 32627-5] Goal Plan of Care Note [code = 94999-2] Goal Plan of Care Note [code = 13174-8] Goal Plan of Care Note [code = 30552-2] Goal Plan of Care Note [code = 33724-7] Goal Plan of Care Note [code = 45780-8] Goal Plan of Care Note [code = 47242-0] Goal Plan of Care Note [code = 01512-1] Goal Plan of Care Note [code = 24463-9] Goal Plan of Care Note [code = 76815-3] Goal Plan of Care Note [code = 77082-0] Goal Plan of Care Note [code = 67262-6] Goal Plan of Care Note [code = 73189-9] Goal Plan of Care Note [code = 56240-7] Goal Plan of Care Note [code = 03502-8] Goal Plan of Care Note [code = 95183-4] Goal Plan of Care Note [code = 85191-6] Goal Plan of Care Note [code = 92672-5] Goal Plan of Care Note [code = 11169-5] Goal Plan of Care Note [code = 35698-2] Goal Plan of Care Note [code = 70458-9] Goal Plan of Care Note [code = 98210-9] Goal Plan of Care Note [code = 15021-9] Goal Plan of Care Note [code = 49760-7] Goal Plan of Care Note [code = 16896-4] Goal Plan of Care Note [code = 51680-6] Goal Plan of Care Note [code = 18400-0] Goal Plan of Care Note [code = 98587-1] Goal Plan of Care Note [code = 15558-0] Goal Plan of Care Note [code = 93961-6] Goal Plan of Care Note [code = 86544-3] Goal Plan of Care Note [code = 92754-9] Goal Plan of Care Note [code = 01936-6] Goal Plan of Care Note [code = 65870-5] Goal Plan of Care Note [code = 87946-5] Goal Plan of Care Note [code = 67800-7] Goal Plan of Care Note [code = 52912-2] Goal Plan of Care Note [code = 23297-9] Goal Plan of Care Note [code = 14237-9] Goal Plan of Care Note [code = 94504-4] Goal Plan of Care Note [code = 57340-3] Goal Plan of Care Note [code = 34568-4] Goal Plan of Care Note [code = 55619-3] Goal Plan of Care Note [code = 13485-5] Goal Plan of Care Note [code = 59936-2] Goal Plan of Care Note [code = 83323-5] Goal Plan of Care Note [code = 70328-6] Goal Plan of Care Note [code = 93230-8] Goal Plan of Care Note [code = 65704-6] Goal Plan of Care Note [code = 34919-3] Goal Plan of Care Note [code = 35334-9] Goal Plan of Care Note [code = 18901-9] Goal Plan of Care Note [code = 56526-2] Goal Plan of Care Note [code = 29639-5] Goal Plan of Care Note [code = 98258-1] Goal Plan of Care Note [code = 42569-7] Goal Plan of Care Note [code = 96586-2] Goal Plan of Care Note [code = 46448-4] Goal Plan of Care Note [code = 57765-3] Goal Plan of Care Note [code = 36564-2] Goal Plan of Care Note [code = 83236-6] Goal Plan of Care Note [code = 67756-3] Goal Plan of Care Note [code = 27900-6] Goal Plan of Care Note [code = 32037-5] Goal Plan of Care Note [code = 05402-3] Goal Plan of Care Note [code = 63674-9] Goal Plan of Care Note [code = 01516-1] Goal Plan of Care Note [code = 42175-6] Goal Plan of Care Note [code = 18284-6] Goal Plan of Care Note [code = 32916-4] Goal Plan of Care Note [code = 01858-3] Goal Plan of Care Note [code = 81697-2] Goal Plan of Care Note [code = 78963-7] Goal Plan of Care Note [code = 30949-3] Goal Plan of Care Note [code = 01363-3] Goal Plan of Care Note [code = 60956-8] Goal Plan of Care Note [code = 52684-8] Goal Plan of Care Note [code = 10104-4] Goal Plan of Care Note [code = 35012-7] Goal Plan of Care Note [code = 10179-8] Goal Plan of Care Note [code = 77400-4] Goal Plan of Care Note [code = 61294-3] Goal Plan of Care Note [code = 83038-1] Goal Plan of Care Note [code = 40048-7] Goal Plan of Care Note [code = 61753-5] Goal Plan of Care Note [code = 25103-8] Goal Plan of Care Note [code = 40010-3] Goal Plan of Care Note [code = 89140-7] Goal Plan of Care Note [code = 57014-6] Goal Plan of Care Note [code = 52558-8] Goal Plan of Care Note [code = 26681-3] Goal Plan of Care Note [code = 93307-9] Goal Plan of Care Note [code = 54491-0] Goal Plan of Care Note [code = 54492-6] Goal Plan of Care Note [code = 99485-0] Goal Plan of Care Note [code = 50662-1] Goal Plan of Care Note [code = 98862-8] Goal Plan of Care Note [code = 37532-1] Goal Plan of Care Note [code = 13667-4] Goal Plan of Care Note [code = 72260-4] Goal Plan of Care Note [code = 79274-4] Goal Plan of Care Note [code = 61227-5] Goal Plan of Care Note [code = 19608-6] Goal Plan of Care Note [code = 90711-2] Goal Plan of Care Note [code = 00661-6] Goal Plan of Care Note [code = 47599-0] Goal Plan of Care Note [code = 67767-6] Goal Plan of Care Note [code = 58461-5] Goal Plan of Care Note [code = 60037-2] Goal Plan of Care Note [code = 62858-0] Goal Plan of Care Note [code = 96055-8] Goal Plan of Care Note [code = 25597-4] Goal Plan of Care Note [code = 04471-2] Goal Plan of Care Note [code = 89854-8] Goal Plan of Care Note [code = 90338-7] Goal Plan of Care Note [code = 99932-0] Goal Plan of Care Note [code = 62639-4] Goal Plan of Care Note [code = 91139-4] Goal Plan of Care Note [code = 66098-8] Goal Plan of Care Note [code = 50242-4] Goal Plan of Care Note [code = 99702-6] Goal Plan of Care Note [code = 04273-4] Goal Plan of Care Note [code = 94687-6] Goal Plan of Care Note [code = 87788-3] Goal Plan of Care Note [code = 55835-9] Goal Plan of Care Note [code = 85510-1] Goal Plan of Care Note [code = 04914-5] Goal Plan of Care Note [code = 32177-6] Goal Plan of Care Note [code = 53934-7] Encounters Start Date/Time End Date/Time Encounter Type Admission Type Attending [facility] Care Facility Care Department Encounter ID Source 2024-09-09 14:36:15 2024-09-09 14:36:15 Outpatient [facility] [id number] Tashi F Leobardo 2024-09-09 00:00:00 2024-09-09 00:00:00 Outpatient Visit [facility] [id number] Tashi Booth 2024-09-01 14:03:07 2024-09-01 14:03:07 Outpatient [facility]FA S[facility] [id number] Tashi Booth 2024-09-01 00:00:00 2024-09-01 00:00:00 Outpatient Visit [facility] [id number] Tashi Booth 2024-08-31 00:00:00 2024-08-31 13:43:19 Telephone Reginaldo Macdonald [facility] ([facility] 1..840.114 350.1.13.10 4.2.7.2.686 [id number] [facility] 2024-08-31 10:45:00 2024-08-31 11:37:01 Outpatient NILE CLARK [facility] [id number] [facility] 2024-08-31 10:45:00 2024-08-31 11:37:01 Office Visit Reginaldo Macdonald Erica [facility] ([facility]) 1..840.114 350.1.13.10 4.2.7.2.686 [id number] [facility] 2024-08-27 14:00:00 2024-08-27 16:11:52 Outpatient YARELIS CHAVIRA [facility] [id number] [facility] 2024-07-23 00:00:00 2024-07-23 14:11:07 Telephone Reginaldo Macdonald [facility] 1..840.114 350.1.13.10 4.2.7.2.686 [id number] [facility] 2024-07-02 10:00:00 2024-07-02 11:42:16 Outpatient MARYURI FLANAGAN PAMELA [facility] [id number] [facility] 2024-07-02 10:00:00 2024-07-02 11:42:16 Office Visit Maryuri Tran [facility] 1.2.840.114 350.1.13.10 4.2.7.2.686 [id number] [facility] 2024-06-13 13:29:00 2024-06-13 20:01:00 Emergency X NI SÁNCHEZ BARB [facility] [[email or web address]] ERT [id number] [facility] 2024-06-13 13:29:00 2024-06-13 20:01:00 Emergency Jace Arvizu [facility] ([facility]) 1.2.840.114 350.1.13.10 4.2.7.2.686 [id number] [facility] 2024-06-01 10:45:00 2024-06-01 11:14:52 Outpatient RICK GONZALES [facility] [id number] [facility] 2024-06-01 10:45:00 2024-06-01 11:14:52 Office Visit Reginaldo Macdonald Erica Wilkerson, Michael G [facility] ([facility]) 1.2.840.114 350.1.13.10 4.2.7.2.686 [id number] [facility] 2024-05-29 10:00:00 2024-05-29 10:00:00 Outpatient PRASHANTH MATHIS [facility] [id number] [facility] 2024-04-15 00:00:00 2024-04-15 00:00:00 Outpatient Visit [facility] [id number] Tashi Booth 2024-04-03 17:27:12 2024-04-03 17:27:12 Outpatient [facility] [id number] Tashi Booth 2024-04-03 00:00:00 2024-04-03 00:00:00 Outpatient Visit [facility] [id number] Tashi Booth 2024-04-01 00:00:00 2024-04-02 09:24:05 Telephone [facility] 1.2.840.114 350.1.13.10 4.2.7.2.686 [id number] [facility] 2024-02-07 11:23:34 2024-02-07 11:23:34 Outpatient SFA S[facility] [id number] Tashi Booth 2024-02-07 00:00:00 2024-02-07 00:00:00 Outpatient Visit [facility] [id number] Tashi Booth 2024-02-03 13:00:00 2024-02-03 13:30:50 Outpatient R YARELIS REILLY [facility] [id number] [facility] 2024-02-03 13:00:00 2024-02-03 13:30:50 Office Visit Yarelis Reilly [facility] 1.2.840.114 350.1.13.10 4.2.7.2.686 [id number] [facility] 2024-01-31 10:08:34 2024-01-31 10:08:34 Outpatient SFA SFA 822 Tashi Booth 2024-01-31 00:00:00 2024-01-31 00:00:00 Outpatient Visit [facility] [id number] Tashi Booth 2024-01-09 11:00:00 2024-01-09 11:29:56 Outpatient R KRISTINE SHI [facility] [id number] [facility] 2024-01-09 11:00:00 2024-01-09 11:29:56 Office Visit Lamar Ladan Ping Shi La Puertadee Powers [facility] 1.2.840.114 350.1.13.10 4.2.7.2.686 [id number] [facility] 2023-12-19 17:02:35 2023-12-19 17:02:35 Outpatient SFA SFA 0711 Tashi Booth 2023-12-19 00:00:00 2023-12-19 00:00:00 Outpatient Visit [facility] [id number] Tashi Booth 2023-10-28 14:30:00 2023-10-28 15:00:00 Office Visit Yarelis Reilly [facility] 1.2.840.114 350.1.13.10 4.2.7.2.686 [id number] [facility] 2023-10-28 14:30:00 2023-10-28 14:30:00 Outpatient R YARELIS REILLY [facility] [id number] [facility] 2023-10-16 11:16:20 2023-10-16 11:16:20 Outpatient SFA [facility] [id number] Tashi Marques Leobardo 2023-10-16 00:00:00 2023-10-16 00:00:00 Outpatient Visit [facility] [id number] Tashi Booth 2023-10-02 11:37:29 2023-10-02 11:37:29 Outpatient SFA SFA [id number] Tashi Booth 2023-10-02 00:00:00 2023-10-02 00:00:00 Outpatient Visit S[facility] [id number] Tashi Booth 2023-08-27 16:41:31 2023-08-27 16:41:31 Outpatient SFA SFA [id number] Tashi Booth 2023-08-19 11:15:00 2023-08-19 12:07:25 Outpatient R YARELIS REILLY [facility] [id number] [facility] 2023-08-19 11:15:00 2023-08-19 12:07:25 Office Visit Yarelis Reilly [facility] 1.114 350.1.13.10 4.2.7.2.686 [id number] [facility] 2023-08-19 00:00:00 2023-08-19 00:00:00 Orders Only Doctor Unassigned, [place] 1.114 350.1.13.10 4.2.7.2.686 [id number] [facility] 2023-07-25 16:27:39 2023-07-25 16:27:39 Outpatient SFA [facility] [id number] Tashi Booth 2023-07-01 09:30:00 2023-07-01 09:55:32 Outpatient R YARELIS REILLY [facility] [id number] [facility] 2023-07-01 09:30:00 2023-07-01 09:55:32 Office Visit Yarelis Reilly [facility] 1.114 350.1.13.10 4.2.7.2.686 [id number] [facility] 2023-07-01 00:00:00 2023-07-01 00:00:00 Orders Only Doctor Unassigned, [place] [facility] 1.114 350.1.13.10 4.2.7.2.686 [id number] [facility] 2023-06-26 09:00:00 2023-06-26 09:00:00 Outpatient R HI CRAWLEY ELISHA [facility] [id number] [facility] 2023-06-24 14:26:19 2023-06-24 14:26:19 Outpatient SFA [facility] [id number] Tashi Booth 2023-05-29 10:00:00 2023-05-29 10:00:00 Outpatient R HI CRAWLEY ELISHA [facility] [id number] [facility] 2023-05-20 10:00:00 2023-05-20 10:54:42 Outpatient R YARELIS REILLY [facility] [id number] [facility] 2023-05-20 10:00:00 2023-05-20 10:54:42 Office Visit Yarelis Reilly [facility] [[email or web address] 1.840.114 350.1.13.10 4.2.7.2.686 [id number] [facility] 2023-05-20 00:00:00 2023-05-20 00:00:00 Orders Only Doctor Unassigned, [place] [facility] 1.840.114 350.1.13.10 4.2.7.2.686 [id number] [facility] [id number] [facility] 2023-05-13 13:26:47 2023-05-13 13:26:47 Outpatient S[facility] [id number] Tashi Booth 2023-04-25 11:20:41 2023-04-25 11:20:41 Outpatient SFA [facility] [id number] Tashi Booth 2023-04-18 11:47:02 2023-04-18 11:47:02 Outpatient S[facility] [id number] Tashi Booth 2023-04-18 10:00:00 2023-04-18 10:00:00 Outpatient BRITTANY MOTA [facility] [id number] [facility] 2023-04-16 16:02:28 2023-04-16 16:02:28 Outpatient SFA [facility] [id number] Tashi Booth 2023-04-05 09:45:00 2023-04-05 09:45:00 Outpatient LASHAUN CORDERO [facility] [id number] [facility] 2023-03-29 09:30:00 2023-03-29 09:56:41 Outpatient R YARELIS REILLY [facility] [id number] [facility] 2023-03-29 09:30:00 2023-03-29 09:56:41 Office Visit Yarelis Reilly [facility] [[email or web address]] [facility] 1.840.114 350.1.13.10 4.2.7.2.686 [id number] [facility] 2023-03-29 00:00:00 2023-03-29 00:00:00 Orders Only Doctor Unassigned, [place] [facility] 1.840.114 350.1.13.10 4.2.7.2.686 [id number] [facility] 2023-03-27 00:00:00 2023-03-27 00:00:00 [facility] 1.840.114 350.1.13.10 4.2.7.2.686 [id number] [facility] 2023-03-15 09:45:00 2023-03-15 09:45:00 Outpatient LASHAUN CORDERO [facility] [id number] [facility] 2023-03-13 09:45:00 2023-03-13 09:45:00 Outpatient LASHAUN CORDERO [facility] [id number] [facility] 2023-03-07 13:25:26 2023-03-07 13:25:26 Outpatient SFA SFA 0928 Tashi Booth 2023-02-22 13:36:53 2023-02-22 13:36:53 Outpatient [facility] [id number] Tashi Booth 2023-02-04 15:00:00 2023-02-04 15:24:10 Outpatient R YARELIS REILLY [facility] [id number] [facility] 2023-02-04 15:00:00 2023-02-04 15:24:10 Office Visit Yarelis Reilly [facility] 1.84.114 350.1.13.10 4.2.7.2.686 [id number] [facility] 2023-02-04 00:00:00 2023-02-04 00:00:00 Orders Only Doctor Unassigned, [place] [facility] 1.840.114 350.1.13.10 4.2.7.2.686 [id number] [facility] 2023-01-25 10:31:07 2023-01-25 10:31:07 Outpatient [facility] 18 Tashi Booth 2023-01-18 09:59:34 2023-01-18 09:59:34 Outpatient [facility] 11 Tashi Booth 2023-01-18 00:00:00 2023-01-18 00:00:00 Orders Only Doctor Unassigned, [place] [facility] 1.840.114 350.1.13.10 4.2.7.2.686 [id number] [facility] 2023-01-11 11:50:36 2023-01-11 11:50:36 Outpatient [facility] [id number] Tashi Booth 2022-12-14 16:00:00 2022-12-14 16:26:36 Outpatient R YARELIS REILLY [facility] [id number] [facility] 2022-12-14 16:00:00 2022-12-14 16:26:36 Office Visit Yarelis Reilly [facility] 1.84.114 350.1.13.10 4.2.7.2.686 [id number] [facility] 2022-10-25 11:20:00 2022-10-25 11:34:40 Outpatient R MAIKEL BRITTANY [facility] [id number] [facility] 2022-10-25 11:20:00 2022-10-25 11:34:40 [facility] 1.840.114 350.1.13.10 4.2.7.2.686 [id number] [facility] 2022-10-15 09:00:22 2022-10-15 09:00:22 Outpatient [facility] [id number] Tashi Booth 2022-10-11 11:20:00 2022-10-11 11:20:00 Outpatient R BRITTANY KO [facility] [id number] [facility] 2022-10-08 09:30:00 2022-10-08 09:30:00 Outpatient R YARELIS REILLY [facility] [id number] [facility] 2022-10-05 10:30:00 2022-10-05 10:30:00 [id number] 2022-09-21 10:00:00 2022-09-21 10:39:06 Outpatient R YARELIS REILLY [facility] [id number] [facility] 2022-09-21 10:00:00 2022-09-21 10:39:06 Office Visit Yarelis Reilly [facility] 1.840.114 350.1.13.10 4.2.7.2.686 [id number] [facility] 2022-09-21 00:00:00 2022-09-21 00:00:00 Orders Only Doctor Unassigned, [place] [facility] 1.2840.114 350.1.13.10 4.2.7.2.686 [id number] [facility] 2022-09-15 13:06:28 2022-09-15 13:06:28 Outpatient [facility] 0408 Tashi Marques Leobardo 2022-08-03 10:08:17 2022-08-03 10:08:17 Outpatient [facility] 0224 Tashi Botoh 2022-07-31 13:30:00 2022-07-31 14:09:41 Outpatient R BRITTANY KO [facility] [id number] [facility] 2022-07-31 00:00:00 2022-07-31 00:00:00 Orders Only Doctor Unassigned, [place] [facility] 1.2840.114 350.1.13.10 4.2.7.2.686 [id number] [facility] 2022-07-12 09:20:00 2022-07-12 09:37:27 Outpatient R BRITTANY KO [facility] [id number] [facility] 2022-07-12 09:20:00 2022-07-12 09:37:27 Office Visit Brittany Ko [facility] 1.840.114 350.1.13.10 4.2.7.2.686 [id number] [facility] 2022-07-12 00:00:00 2022-07-12 00:00:00 Orders Only Doctor Unassigned, [place] [facility] 1.2840.114 350.1.13.10 4.2.7.2.686 [id number] [facility] 2022-07-07 09:09:58 2022-07-07 09:09:58 Outpatient [facility] 0128 Tashi Booth 2022-06-19 15:53:04 2022-06-19 15:53:04 Outpatient [facility] 0110 Tashi Booth 2022-06-19 00:00:00 2022-06-19 00:00:00 Outpatient Visit [id number] -[id number]-[id number] [id number]-a [id number]-94ac4c [id number] 2022-05-12 13:01:34 2022-05-12 13:01:34 Outpatient [facility] 1203 Tashi Booth 2022-05-12 00:00:00 2022-05-12 00:00:00 Outpatient Visit [id number]-[id number] -[id number] 1de-4b27-b [id number] 2022-04-18 14:45:34 2022-04-18 14:45:34 Outpatient [facility] 1109 Tashi Booth 2022-04-18 00:00:00 2022-04-18 00:00:00 Outpatient Visit [id number]-4baf -[id number]-tv5 [id number] 9ed-4baf-b [id number] [id number] 2022-03-01 00:00:00 2022-03-01 00:00:00 Outpatient Visit [id number] [id number] 2022-01-05 00:00:00 2022-01-05 00:00:00 Outpatient Visit [id number]- [id number] -[id number]-[id number] 077-4248-[id number] [id number] [id number] 2021-12-08 00:00:00 2021-12-08 00:00:00 Orders Only Doctor Unassigned, [place] [facility] 1.2.840.114 350.1.13.10 4.2.7.2.686 [id number] [facility] 2021-11-24 10:00:00 2021-11-24 10:30:00 Office Visit Mayo Salazar [facility] 1.2.840.114 350.1.13.10 4.2.7.2.686 [id number] [facility] 2021-11-24 10:00:00 2021-11-24 10:00:00 Outpatient R TOMASZ SALAZARROQUEURBANONestor [facility] [id number] [facility] 2021-11-16 00:00:00 2021-11-16 00:00:00 Telephone Mayo Salazar [facility] 1.2840.114 350.1.13.10 4.2.7.2.686 [id number] [facility] 2021-11-10 14:00:00 2021-11-10 14:00:00 Outpatient R RIGOBERTO ROMO [facility] [id number] [facility] 2021-06-15 10:00:00 2021-06-15 10:30:00 Office Visit Mayo Salazar [facility] 1.2.840.114 350.1.13.10 4.2.7.2.686 [id number] [facility] [id number] [facility] 2021-06-15 10:00:00 2021-06-15 10:00:00 Outpatient R MAYO SALAZAR [facility] [id number] [facility] 2021-06-15 10:00:00 2021-06-15 10:00:00 [facility] [id number] [facility] 2021-06-15 00:00:00 2021-06-15 00:00:00 Orders Only Doctor Unassigned, [place] [facility] 1.2.840.114 350.1.13.10 4.2.7.2.686 [id number] [facility] 2021-05-26 13:30:00 2021-05-26 14:47:06 Outpatient R RIGOBERTO ROMO [facility] [id number] [facility] 2021-05-26 13:30:00 2021-05-26 14:47:06 [facility].2.[facility].114 350.1.13.10 4.2.7.2.686 [id number] [facility] 2021-05-10 00:00:00 2021-05-10 00:00:00 [facility]phone [facility] 1.2840.114 350.1.13.10 4.2.7.2.686 [id number] [facility] 2021-04-28 13:29:36 2021-04-28 14:35:55 Office Visit [facility] 1.2840.114 350.1.13.10 4.2.7.2.686 [id number] [facility] 2021-04-28 13:15:00 2021-04-28 14:35:55 Outpatient R RINACAMMARCE PRANAVAureliano [facility] [id number] [facility] 2021-04-04 00:00:00 2021-04-04 00:00:00 Telephone [facility] 1.2840.114 350.1.13.10 4.2.7.2.686 [id number] [facility] 2021-03-31 12:51:37 2021-03-31 15:14:30 Office Visit [facility] 1.2840.114 350.1.13.10 4.2.7.2.686 [id number] [facility] 2021-03-31 13:15:00 2021-03-31 13:15:00 Outpatient R RIGOBERTO ROMO [facility] [id number] [facility] 2021-03-31 00:00:00 2021-03-31 00:00:00 Orders Only Doctor Unassigned, [place] [facility] 1.2.840.114 350.1.13.10 4.2.7.2.686 [id number] [facility] 2021-02-27 00:00:00 2021-02-27 00:00:00 Telephone Rigoberto Romo [facility] 1.2.840.114 350.1.13.10 4.2.7.2.686 [id number] [facility] 2021-02-08 00:00:00 2021-02-08 00:00:00 Orders Only Mally [facility] 1.2.840.114 350.1.13.10 4.2.7.2.686 [id number] [id number] [facility] 2021-02-08 00:00:00 2021-02-08 00:00:00 Orders Only Mally [facility] 1.2.840.114 350.1.13.10 4.2.7.2.686 [id number] [facility] 2021-02-08 00:00:00 2021-02-08 00:00:00 Telephone Rigoberto Romo [facility] 1.2840.114 350.1.13.10 4.2.7.2.686 [id number] [facility] 2021-02-02 00:00:00 2021-02-02 00:00:00 Telephone Rigoberto Romo [facility] 1.2.840.114 350.1.13.10 4.2.7.2.686 [id number] [facility] 2021-02-02 00:00:00 2021-02-02 00:00:00 Telephone Rigoberto Romo [facility] 1.2840.114 350.1.13.10 4.2.7.2.686 [id number] [facility] 2020-11-23 09:10:18 2020-11-23 10:10:31 Office Visit Rigoberto Romo [employer], Kathleen [facility] 1.840.114 350.1.13.10 4.2.7.2.686 [id number] [facility] 2020-11-23 09:00:00 2020-11-23 09:00:00 Outpatient NILE CLARK [facility] [id number] [facility] 2020-11-03 10:10:00 2020-11-03 10:10:00 Outpatient DANA BARBER [facility] [id number] [facility] 2020-10-24 10:40:00 2020-10-24 10:40:00 Outpatient SAURAV SILVER [facility] [id number] [facility] 2020-10-06 10:30:00 2020-10-06 10:30:00 Outpatient [facility] [id number] [facility] 2020-09-26 10:40:00 2020-09-26 10:40:00 Outpatient SAURAV SILVER [facility] [id number] [facility] 2020-09-26 10:40:00 2020-09-26 10:19:47 Outpatient SAURAV SILVER [facility] [id number] [facility] 2020-04-12 14:20:00 2020-04-12 14:20:00 Outpatient Byron PHILIPPE NGUYEN [facility] [id number] [facility] 2020-03-17 00:00:00 2020-03-17 00:00:00 Telephone Afua [place]ssa [email or web address] 1.2.840.114 350.1.13.10 4.2.7.2.686 [id number] [facility] 2020-03-17 00:00:00 2020-03-17 00:00:00 Telephone Afua [place]ssa [email or web address] 1.2840.114 350.1.13.10 4.2.7.2.686 [id number] 2020-02-24 00:00:00 2020-02-24 00:00:00 Refill Valentin Huff [email or web address] 1.2840.114 350.1.13.10 4.2.7.2.686 [id number] [facility] 2020-01-28 00:00:00 2020-01-28 00:00:00 Telephone Hui Mas [facility] [[email or web address] 1.840.114 350.1.13.10 4.2.7.2.686 [id number] [facility] 2019-12-30 00:00:00 2019-12-30 00:00:00 Telephone Jennifer Jorge [facility] 1.840.114 350.1.13.10 4.2.7.2.686 [id number] [facility] 2019-12-29 09:12:24 2019-12-29 09:38:42 Laboratory Only Lab, Adc Fam Connie Torres [facility] [address] 1.840.114 350.1.13.10 4.2.7.2.686 [id number] [facility] 2019-12-29 09:20:00 2019-12-29 09:20:00 Outpatient CONNIE PAULA [facility] [id number] [facility] 2019-12-29 00:00:00 2019-12-29 00:00:00 Letter (Out) Doctor Unassigned, [place] [facility] 1.2.840.114 350.1.13.10 4.2.7.2.686 [id number] [facility] 2017-07-01 09:30:00 2017-07-01 09:30:00 Outpatient Byron [facility] [id number] [facility] 2017-04-22 09:30:00 2017-04-22 09:30:00 [facility] [id number] [facility] Results Test Description Test Time Test Comments [...] TISSUES: No suspicious osseous lesion is seen. [facility] with [id number] 21:23:27* Test Item Value Reference Range Interpretation [...] g/dL 31.6-35.1 L RDW-SD (test code = 86961-9) 40.6 fL 39.0-49.9 RDW-CV (test code = 788-0) 19.9 % 12.0-15.5 H PLT (test code = 777-3) 350 166-358 MPV (test code = 42479-7) 9.8 fL 9.5-12.9 IPF % (test code = 6737418826) 6.4 % 1.3-7.7 Platelet count measured by fluorescence method. NRBC/100 WBC (test code = 7407872981) 0.5 0.0-10.0 NRBC x10^3 (test code = 0669152047) 0.03 See_Comment [Automated Tizraa ge] The system which generated this result transmitted reference range: 10*3/?L. The reference range was not used to interpret this result as normal/abnormal. GRAN MAT (NEUT) % (test code = 770-8) 68.1 % IMM GRAN % (test code = 4754413554) 0.70 % LYMPH % (test code = 736-9) 24.1 % MONO % (test code = 5905-5) 5.6 % EOS % (test code = 713-8) 1.0 % BASO % (test code = 706-2) 0.5 % GRAN MAT x10^3(ANC) (test code = 2668557421) 4.12 10*3/uL 1.88-7.09 IMM GRAN x10^3 (test code = 2670010022) 0.04 10*3/uL 0.00-0.06 LYMPH x10^3 (test code = 731-0) 1.46 10*3/uL 1.32-3.29 MONO x10^3 (test code = 742-7) 0.34 10*3/uL 0.33-0.92 EOS x10^3 (test code = 711-2) 0.06 10*3/uL 0.03-0.39 BASO x10^3 (test code = 704-7) 0.03 10*3/uL 0.01-0.07 Lab Interpretation (test code = 32205-3) [id number]:09:00* Test Item Value Reference Range Interpretation Comme nts POCT PREG (test code = 1605) Negative On board controls acceptable with C Line (test code = 3574) Yes Lab Interpretation (test cod e = 32990-2) Normal [facility] Metabolic Panel (NA, K, CL, CO2, GLUCOSE, BUN, CREATININE, CA)2024-06-13 21:04:23* Test Item Value Reference Range Interpretation Comme [facility] NA (test code = 2024649678) 137 mmol/L 135-145 K (test code = 5501602159) 4.1 mmol/L 3.5-5.0 CL (test code = 7612991583) 105 mmol/L 98-108 CO2 TOTAL (test code = 8119616434) 26 mmol/L 23-31 AGAP (test code = 4626234783) 6 2-16 BUN (test code = 5806998050) 8 mg/dL 7-23 GLUCOSE (test code = 2666588413) 101 mg/dL 70-110 CREATININE (test code = 2160-0) 0.65 mg/dL 0.50-1.04 CALCIUM (test code = 7990203782) 9.1 mg/dL 8.6-10.6 eGFR (test code = 04669-8) 112.9 mL/min/1.73m2 CKD-EPI eGFR (20 21). Assuming creatinine has been stable day-to-day for at least three months, the eGFR indicates Category G1 (>= 90 mL/min/1.73 m2) [facility] [ADDED] 2024-02-12 00:00:00* Test Item Value Reference Range Interpretation Comme nts GLUCOSE (test code = 2217) 96 MG/DL BUN (test code = 2208) 10 MG/DL CREATININE (test code = 2214) 0.76 MG/DL eGFR (2020 CKD-EPI) (test code = 56462) 100 ML/MIN/1.73 CALC BUN/CREAT (test code = [...] MG/DL eGFR (2020 CKD-EPI) (test code = 27533) 100 ML/MIN/1.73 CALC BUN/CREAT (test code = [...] MG/DL eGFR (2020 CKD-EPI) (test code = 15767) 100 ML/MIN/1.73 CALC BUN/CREAT (test code = [...] MG/DL eGFR (2020 CKD-EPI) (test code = 02298) 100 ML/MIN/1.73 CALC BUN/CREAT (test code = [...] nts NOTE: (test code = 998) (NOTE) aTshi BoothCBC W/AUTO [id number] 00:00:00* Test Item Value Reference Range Interpretation [...] ABS NUCLEATED RBCS (test cod e = 43051) 0.00 K/UL Tashi BoothACUTE HEPATITIS [id number] 00:00:00* Test Item Value Reference Range Interpretation Comme nts HEPATITIS A IgM (test code = 68221) NON-REACTIVE HEPATITIS B CORE IgM (test c ode = 4644) NON-REACTIVE HEPATITIS B SURF AG (test co de = 2739) NON-REACTIVE HEPATITIS C ANTIBODY (test c ode = 4675) NON-REACTIVE INTERPRETATION HEPATITIS A: (test code = 2552) (NOTE) INTERPRETATION HEPATITIS B: (test code = 05394) (NOTE) INTERPRETATION HEPATITIS C: (test code = 71553) (NOTE) Tashi BoothHIV 1/2 4TH GEN, RFLX [id number] 00:00:00* Test Item Value Reference Range Interpretation Comme nts HIV 1/2 4TH GEN, RFLX CONF ( test code = 3514) NON-REACTIVE Tashi BoothHEMOGLOBIN [id number] 00:00:00* Test Item Value Reference Range Interpretation Comme nts HEMOGLOBIN A1c (test code = 85794) 5.3 % Tashi BoothLIPID [id number] 00:00:00* Test Item Value Reference Range Interpretation Comme nts CHOLESTEROL (test code = 2210) 218 MG/DL TRIGLYCERIDES (test code = 2232) 123 MG/DL HDL CHOLESTEROL (test code = 2220) 68 MG/DL CALC LDL CHOL (test code = 2237) 127 MG/DL RISK RATIO LDL/HDL (test cod e = 2238) 1.87 RATIO Tashi BoothCBC W/AUTO [id number] 00:00:00* Test Item Value Reference Range Interpretation [...] ABS NUCLEATED RBCS (test cod e = 02655) 0.00 K/UL Tashi BotohACUTE HEPATITIS [id number] 00:00:00* Test Item Value Reference Range Interpretation Comme nts HEPATITIS A IgM (test code = 80055) NON-REACTIVE HEPATITIS B CORE IgM (test c ode = 4644) NON-REACTIVE HEPATITIS B SURF AG (test co de = 2739) NON-REACTIVE HEPATITIS C ANTIBODY (test c ode = 4675) NON-REACTIVE INTERPRETATION HEPATITIS A: (test code = 2552) (NOTE) INTERPRETATION HEPATITIS B: (test code = 64403) (NOTE) INTERPRETATION HEPATITIS C: (test code = 88848) (NOTE) Tashi BoothHIV 1/2 4TH GEN, RFLX [id number] 00:00:00* Test Item Value Reference Range Interpretation Comme nts HIV 1/2 4TH GEN, RFLX CONF ( test code = 3514) NON-REACTIVE Tashi BoothHEMOGLOBIN [id number] 00:00:00* Test Item Value Reference Range Interpretation Comme sreekanth HEMOGLOBIN A1c (test code = 30084) 5.3 % Tashi BoothLIPID [id number] 00:00:00* Test Item Value Reference Range Interpretation Comme nts CHOLESTEROL (test code = 2210) 218 MG/DL TRIGLYCERIDES (test code = 2232) 123 MG/DL HDL CHOLESTEROL (test code = 2220) 68 MG/DL CALC LDL CHOL (test code = 2237) 127 MG/DL RISK RATIO LDL/HDL (test cod e = 2238) 1.87 RATIO Tashi BoothCBC W/AUTO [id number] 00:00:00* Test Item Value Reference Range Interpretation [...] ABS NUCLEATED RBCS (test cod e = 26176) 0.00 K/UL Tashi BoothACUTE HEPATITIS [id number] 00:00:00* Test Item Value Reference Range Interpretation Comme nts HEPATITIS A IgM (test code = 98052) NON-REACTIVE HEPATITIS B CORE IgM (test c ode = 4644) NON-REACTIVE HEPATITIS B SURF AG (test co de = 2739) NON-REACTIVE HEPATITIS C ANTIBODY (test c ode = 4675) NON-REACTIVE INTERPRETATION HEPATITIS A: (test code = 2552) (NOTE) INTERPRETATION HEPATITIS B: (test code = 59568) (NOTE) INTERPRETATION HEPATITIS C: (test code = 70158) (NOTE) Tashi BoothHIV 1/2 4TH GEN, RFLX [id number] 00:00:00* Test Item Value Reference Range Interpretation Comme nts HIV 1/2 4TH GEN, RFLX CONF ( test code = 3514) NON-REACTIVE Tashi BoothHEMOGLOBIN [id number] 00:00:00* Test Item Value Reference Range Interpretation Comme nts HEMOGLOBIN A1c (test code = 48451) 5.3 % Tashi BoothLIPID [id number] 00:00:00* Test Item Value Reference Range Interpretation Comme nts CHOLESTEROL (test code = 2210) 218 MG/DL TRIGLYCERIDES (test code = 2232) 123 MG/DL HDL CHOLESTEROL (test code = 2220) 68 MG/DL CALC LDL CHOL (test code = 2237) 127 MG/DL RISK RATIO LDL/HDL (test cod e = 2238) 1.87 RATIO Tashi BoothCBC W/AUTO [id number] 00:00:00* Test Item Value Reference Range Interpretation [...] ABS NUCLEATED RBCS (test cod e = 88205) 0.00 K/UL Tashi BoothACUTE HEPATITIS [id number] 00:00:00* Test Item Value Reference Range Interpretation Comme nts HEPATITIS A IgM (test code = 98977) NON-REACTIVE HEPATITIS B CORE IgM (test c ode = 4644) NON-REACTIVE HEPATITIS B SURF AG (test co de = 2739) NON-REACTIVE HEPATITIS C ANTIBODY (test c ode = 4675) NON-REACTIVE INTERPRETATION HEPATITIS A: (test code = 2552) (NOTE) INTERPRETATION HEPATITIS B: (test code = 56492) (NOTE) INTERPRETATION HEPATITIS C: (test code = 61263) (NOTE) Tashi BoothHIV 1/2 4TH GEN, RFLX [id number] 00:00:00* Test Item Value Reference Range Interpretation Comme nts HIV 1/2 4TH GEN, RFLX CONF ( test code = 3514) NON-REACTIVE Tashi BoothHEMOGLOBIN [id number] 00:00:00* Test Item Value Reference Range Interpretation Comme nts HEMOGLOBIN A1c (test code = 50857) 5.3 % Tashi BoothLIPID [id number] 00:00:00* Test Item Value Reference Range Interpretation Comme nts CHOLESTEROL (test code = 2210) 218 MG/DL TRIGLYCERIDES (test code = 2232) 123 MG/DL HDL CHOLESTEROL (test code = 2220) 68 MG/DL CALC LDL CHOL (test code = 2237) 127 MG/DL RISK RATIO LDL/HDL (test cod e = 2238) 1.87 RATIO Tashi BoothCBC W/AUTO [id number] 00:00:00* Test Item Value Reference Range Interpretation [...] ABS NUCLEATED RBCS (test cod e = 88989) 0.00 K/UL Tashi BoothACUTE HEPATITIS [id number] 00:00:00* Test Item Value Reference Range Interpretation Comme nts HEPATITIS A IgM (test code = 71039) NON-REACTIVE HEPATITIS B CORE IgM (test c ode = 4644) NON-REACTIVE HEPATITIS B SURF AG (test co de = 2739) NON-REACTIVE HEPATITIS C ANTIBODY (test c ode = 4655) NON-REACTIVE INTERPRETATION HEPATITIS A: (test code = 2552) (NOTE) INTERPRETATION HEPATITIS B: (test code = 35880) (NOTE) INTERPRETATION HEPATITIS C: (test code = 47355) (NOTE) Tashi BoothHIV 1/2 4TH GEN, RFLX [id number] 00:00:00* Test Item Value Reference Range Interpretation Comme nts HIV 1/2 4TH GEN, RFLX CONF ( test code = 3514) NON-REACTIVE Tashi BoothHEMOGLOBIN [id number] 00:00:00* Test Item Value Reference Range Interpretation Comme nts HEMOGLOBIN A1c (test code = 63236) 5.3 % Tashi BoothLIPID [id number] 00:00:00* Test Item Value Reference Range Interpretation Comme nts CHOLESTEROL (test code = 2210) 218 MG/DL TRIGLYCERIDES (test code = 2232) 123 MG/DL HDL CHOLESTEROL (test code = 2220) 68 MG/DL CALC LDL CHOL (test code = 2237) 127 MG/DL RISK RATIO LDL/HDL (test cod e = 2238) 1.87 RATIO Tashi Rivero, [id number] 00:00:00* Test Item Value Reference Range Interpretation Comme nts CULTURE, URINE (test code = 27594) SPECIMEN NUMBER: [id number] Tashi Rivero, [id number] 00:00:00* Test Item Value Reference Range Interpretation Comme nts CULTURE, URINE (test code = 96583) SPECIMEN NUMBER: [id number] Tashi AustinLTURE, [id number] 00:00:00* Test Item Value Reference Range Interpretation Comme nts CULTURE, URINE (test code = 77063) SPECIMEN NUMBER: [id number] Tashi BoothCULTEDGAR, [id number] 00:00:00* Test Item Value Reference Range Interpretation Comme nts CULTURE, URINE (test code = 71351) SPECIMEN NUMBER: [id number] Tashi BoothCULTEDGAR, [id number] 00:00:00* Test Item Value Reference Range Interpretation Comme nts CULTURE, URINE (test code = 66989) SPECIMEN NUMBER: [id number] Tashi BoothCULTURE, [id number] 00:00:00* Test Item Value Reference Range Interpretation Comme nts CULTURE, URINE (test code = 34314) SPECIMEN NUMBER: [id number] Tashi Marques AustinHEMOGLOBIN [id number] 00:31:46* Test Item Value Reference Range Interpretation Comme nts HEMOGLOBIN A1c (test code = 91313) 5.0 % 4.2-5.6 HEMOGLOBIN [id number] 00:00:00* Test Item Value Reference Range Interpretation Comme nts HEMOGLOBIN A1c (test code = 17291) 5.0 % Tashi Marques AustinHEMOGLOBIN [id number] 00:00:00* Test Item Value Reference Range Interpretation Comme nts HEMOGLOBIN A1c (test code = 98571) 5.0 % Tashi Marques AustinHEMOGLOBIN [id number] 00:00:00* Test Item Value Reference Range Interpretation Comme nts HEMOGLOBIN A1c (test code = 26365) 5.0 % Tashi Marques AustinHEMOGLOBIN [id number] 00:00:00* Test Item Value Reference Range Interpretation Comme nts HEMOGLOBIN A1c (test code = 10314) 5.0 % Tashi Marques [place] [id number] 00:00:00* Test Item Value Reference Range Interpretation Comme nts HEMOGLOBIN A1c (test code = 04923) 5.0 % Tashi Marques [place] [id number] 00:00:00* Test Item Value Reference Range Interpretation Comme nts HEMOGLOBIN A1c (test code = 54175) 5.0 % Tashi Marques [place] [id number] 00:00:00* Test Item Value Reference Range Interpretation Comme nts HEMOGLOBIN A1c (test code = 64192) 5.0 % Tashi Marques [place] [id number] 00:00:00* Test Item Value Reference Range Interpretation Comme nts HEMOGLOBIN A1c (test code = 58930) 5.0 % Tashi Marques AustinCBC W/AUTO DIFF WITH [id number] 11:18:21* Test Item Value Reference Range Interpretation [...] 0.00-0.10 ABS NUCLEATED RBCS (test code = 65990) 0.00 K/UL 0.00-0.11 COMMENTS (test code = 1016) (NOTE) MODERATE ANISOCY TOSIS FEW ELLIPTOCYTES MARKED HYPOCHROMASIA MODERATE MICROCYTOSIS SLIGHT POIKILOCYTOSIS SLIGHT POLYCHROMASIA FEW TEAR DROP CELLS PLATELETS APPEAR NORMAL UNLESS OTHERWISE INDICATED, ALL TESTING PERFORMED AT [facility] [address] [place] [id number] LICENSED CLUB MANAGER: KIANNA YING M.D. CLIA NUMBER [id number] [place]. [id number] TSH, THIRD [id number] 04:38:02* Test Item Value Reference Range Interpretation Comme [facility] TSH, THIRD GENERATION (test code = 2821) 1.300 UIU/ML 0.400-4.100 VITAMIN D, 25 [id number] 04:35:52* Test Item Value Reference Range Interpretation Comme [facility] VITAMIN D, 25 OH (test code = [...] . . . NG/ML 30-100 COMPREHENSIVE METABOLIC [id number] 04:35:16* Test Item Value Reference Range Interpretation Comme [facility] GLUCOSE (test code = 2217) 89 MG/DL 70-99 BUN (test code = 2207) 9 MG/DL 6-20 CREATININE (test code = 2214) 0.64 MG/DL 0.60-1.30 eGFR (2020 CKD-EPI) (test code = 46498) 113 ML/MIN/1.73 >60 CALC BUN/CREAT (test code [...] code = 2219) 20 U/L 5-40 LIPID [id number] 04:35:16* Test Item Value Reference Range Interpretation [...] SPECIMENS. FOR MOREINFORMATION, SEE CLIENT ANNOUNCEMENT AT [email or web address] RATIO LDL/HDL (test code = 2238) 2.38 RATIO <3.22 LIPID [id number] 00:00:00* Test Item Value Reference Range Interpretation Comme nts CHOLESTEROL (test code = 2210) 238 MG/DL TRIGLYCERIDES (test code = 2232) 124 MG/DL HDL CHOLESTEROL (test code = 2220) 63 MG/DL CALC LDL CHOL (test code = 2237) 150 MG/DL RISK RATIO LDL/HDL (test cod e = 2238) 2.38 RATIO Tashi BoothTSH, THIRD [id number] 00:00:00* Test Item Value Reference Range Interpretation Comme nts TSH, THIRD GENERATION (test code = 2821) 1.300 UIU/ML Tashi BoothVITAMIN D, 25 [id number] 00:00:00* Test Item Value Reference Range Interpretation Comme nts VITAMIN D, 25 OH (test code = 4958) 43 NG/ML Tashi BoothCBC W/AUTO [id number] 00:00:00* Test Item Value Reference Range Interpretation [...] ABS NUCLEATED RBCS (test cod e = 37611) 0.00 K/UL COMMENTS (test code = 1016) (NOTE) Tashi BoothCOMPREHENSIVE METABOLIC [id number] 00:00:00* Test Item Value Reference Range Interpretation Comme nts GLUCOSE (test code = 2217) 89 MG/DL BUN (test code = 2208) 9 MG/DL CREATININE (test code = 2214) 0.64 MG/DL eGFR (2020 CKD-EPI) (test code = 89077) 113 ML/MIN/1.73 CALC BUN/CREAT (test code = [...] code = 2219) 20 U/L Tashi BoothLIPID [id number] 00:00:00* Test Item Value Reference Range Interpretation Comme nts CHOLESTEROL (test code = 2210) 238 MG/DL TRIGLYCERIDES (test code = 2232) 124 MG/DL HDL CHOLESTEROL (test code = 2220) 63 MG/DL CALC LDL CHOL (test code = 2237) 150 MG/DL RISK RATIO LDL/HDL (test cod e = 2238) 2.38 RATIO Tashi BoothTSH, THIRD [id number] 00:00:00* Test Item Value Reference Range Interpretation Comme [facility] TSH, THIRD GENERATION (test code = 2821) 1.300 UIU/ML Tashi BoothVITAMIN D, 25 [id number] 00:00:00* Test Item Value Reference Range Interpretation Comme [facility] VITAMIN D, 25 OH (test code = 4958) 43 NG/ML Tashi BoothCBC W/AUTO [id number] 00:00:00* Test Item Value Reference Range Interpretation [...] ABS NUCLEATED RBCS (test cod e = 28586) 0.00 K/UL COMMENTS (test code = 1016) (NOTE) Tashi Marques LeobardoCOMPREHENSIVE METABOLIC [id number] 00:00:00* Test Item Value Reference Range Interpretation Comme nts GLUCOSE (test code = 2217) 89 MG/DL BUN (test code = 2208) 9 MG/DL CREATININE (test code = 2214) 0.64 MG/DL eGFR (2020 CKD-EPI) (test code = 50428) 113 ML/MIN/1.73 CALC BUN/CREAT (test code = [...] = 2219) 20 U/L Tashi Marques LeobardoLIPID [id number] 00:00:00* Test Item Value Reference Range Interpretation Comme nts CHOLESTEROL (test code = 2210) 238 MG/DL TRIGLYCERIDES (test code = 2232) 124 MG/DL HDL CHOLESTEROL (test code = 2220) 63 MG/DL CALC LDL CHOL (test code = 2237) 150 MG/DL RISK RATIO LDL/HDL (test cod e = 2238) 2.38 RATIO Tashi OhH, THIRD [id number] 00:00:00* Test Item Value Reference Range Interpretation Comme nts TSH, THIRD GENERATION (test code = 2821) 1.300 UIU/ML Tashi BoothVITAMIN D, 25 [id number] 00:00:00* Test Item Value Reference Range Interpretation Comme nts VITAMIN D, 25 OH (test code = 4958) 43 NG/ML Tashi BoothCBC W/AUTO [id number] 00:00:00* Test Item Value Reference Range Interpretation [...] ABS NUCLEATED RBCS (test cod e = 42282) 0.00 K/UL COMMENTS (test code = 1016) (NOTE) Tashi BoothCOMPREHENSIVE METABOLIC [id number] 00:00:00* Test Item Value Reference Range Interpretation [...] code = 2219) 20 U/L Tashi BoothLIPID [id number] 00:00:00* Test Item Value Reference Range Interpretation Comme nts CHOLESTEROL (test code = 2210) 238 MG/DL TRIGLYCERIDES (test code = 2232) 124 MG/DL HDL CHOLESTEROL (test code = 2220) 63 MG/DL CALC LDL CHOL (test code = 2237) 150 MG/DL RISK RATIO LDL/HDL (test cod e = 2238) 2.38 RATIO Tashi BoothTSH, THIRD [id number] 00:00:00* Test Item Value Reference Range Interpretation Comme [facility] TSH, THIRD GENERATION (test code = 2821) 1.300 UIU/ML Tashi BoothVITAMIN D, 25 [id number] 00:00:00* Test Item Value Reference Range Interpretation Comme [facility] VITAMIN D, 25 OH (test code = 4958) 43 NG/ML Tashi BoothCBC W/AUTO [id number] 00:00:00* Test Item Value Reference Range Interpretation [...] ABS NUCLEATED RBCS (test cod e = 30300) 0.00 K/UL COMMENTS (test code = 1016) (NOTE) Tashi BoothCOMPREHENSIVE METABOLIC [id number] 00:00:00* Test Item Value Reference Range Interpretation Comme nts GLUCOSE (test code = 2217) 89 MG/DL BUN (test code = 2208) 9 MG/DL CREATININE (test code = 2214) 0.64 MG/DL eGFR (2020 CKD-EPI) (test code = 90484) 113 ML/MIN/1.73 CALC BUN/CREAT (test code = [...] code = 2219) 20 U/L Tashi BoothLIPID [id number] 00:00:00* Test Item Value Reference Range Interpretation Comme nts CHOLESTEROL (test code = 2210) 238 MG/DL TRIGLYCERIDES (test code = 2232) 124 MG/DL HDL CHOLESTEROL (test code = 2220) 63 MG/DL CALC LDL CHOL (test code = 2237) 150 MG/DL RISK RATIO LDL/HDL (test cod e = 2238) 2.38 RATIO Tashi BoothTSH, THIRD [id number] 00:00:00* Test Item Value Reference Range Interpretation Comme [facility] TSH, THIRD GENERATION (test code = 2821) 1.300 UIU/ML Tashi BoothVITAMIN D, 25 [id number] 00:00:00* Test Item Value Reference Range Interpretation Comme [facility] VITAMIN D, 25 OH (test code = 4958) 43 NG/ML Tashi BoothCBC W/AUTO [id number] 00:00:00* Test Item Value Reference Range Interpretation [...] ABS NUCLEATED RBCS (test cod e = 35641) 0.00 K/UL COMMENTS (test code = 1016) (NOTE) Tashi BoothCOMPREHENSIVE METABOLIC [id number] 00:00:00* Test Item Value Reference Range Interpretation Comme nts GLUCOSE (test code = 2217) 89 MG/DL BUN (test code = 2208) 9 MG/DL CREATININE (test code = 2214) 0.64 MG/DL eGFR (2020 CKD-EPI) (test code = 46193) 113 ML/MIN/1.73 CALC BUN/CREAT (test code = [...] code = 2219) 20 U/L Tashi BoothLIPID [id number] 00:00:00* Test Item Value Reference Range Interpretation Comme nts CHOLESTEROL (test code = 2210) 238 MG/DL TRIGLYCERIDES (test code = 2232) 124 MG/DL HDL CHOLESTEROL (test code = 2220) 63 MG/DL CALC LDL CHOL (test code = 2237) 150 MG/DL RISK RATIO LDL/HDL (test cod e = 2238) 2.38 RATIO Tashi BoothTSH, THIRD [id number] 00:00:00* Test Item Value Reference Range Interpretation Comme sreekanth TSH, THIRD GENERATION (test code = 2821) 1.300 UIU/ML Tashi BoothVITAMIN D, 25 [id number] 00:00:00* Test Item Value Reference Range Interpretation Comme sreekanth VITAMIN D, 25 OH (test code = 4958) 43 NG/ML Tashi BoothCBC W/AUTO [id number] 00:00:00* Test Item Value Reference Range Interpretation [...] ABS NUCLEATED RBCS (test cod e = 33713) 0.00 K/UL COMMENTS (test code = 1016) (NOTE) Tashi BoothCOMPREHENSIVE METABOLIC [id number] 00:00:00* Test Item Value Reference Range Interpretation Comme nts GLUCOSE (test code = 2217) 89 MG/DL BUN (test code = 2208) 9 MG/DL CREATININE (test code = 2214) 0.64 MG/DL eGFR (2020 CKD-EPI) (test code = 32533) 113 ML/MIN/1.73 CALC BUN/CREAT (test code = [...] code = 2219) 20 U/L Tashi BoothLIPID [id number] 00:00:00* Test Item Value Reference Range Interpretation Comme nts CHOLESTEROL (test code = 2210) 238 MG/DL TRIGLYCERIDES (test code = 2232) 124 MG/DL HDL CHOLESTEROL (test code = 2220) 63 MG/DL CALC LDL CHOL (test code = 2237) 150 MG/DL RISK RATIO LDL/HDL (test cod e = 2238) 2.38 RATIO Tashi BoothTSH, THIRD [id number] 00:00:00* Test Item Value Reference Range Interpretation Comme nts TSH, THIRD GENERATION (test code = 2821) 1.300 UIU/ML Tashi Marques LeobardoVITAMIN D, 25 [id number] 00:00:00* Test Item Value Reference Range Interpretation Comme nts VITAMIN D, 25 OH (test code = 4958) 43 NG/ML Tashi BoothCBC W/AUTO [id number] 00:00:00* Test Item Value Reference Range Interpretation [...] ABS NUCLEATED RBCS (test cod e = 03165) 0.00 K/UL COMMENTS (test code = 1016) (NOTE) Tashi BoothCOMPREHENSIVE METABOLIC [id number] 00:00:00* Test Item Value Reference Range Interpretation Comme nts GLUCOSE (test code = 2217) 89 MG/DL BUN (test code = 2208) 9 MG/DL CREATININE (test code = 2214) 0.64 MG/DL eGFR (2020 CKD-EPI) (test code = 62616) 113 ML/MIN/1.73 CALC BUN/CREAT (test code = [...] code = 2219) 20 U/L Tashi BoothLIPID [id number] 00:00:00* Test Item Value Reference Range Interpretation Comme nts CHOLESTEROL (test code = 2210) 238 MG/DL TRIGLYCERIDES (test code = 2232) 124 MG/DL HDL CHOLESTEROL (test code = 2220) 63 MG/DL CALC LDL CHOL (test code = 2237) 150 MG/DL RISK RATIO LDL/HDL (test cod e = 2238) 2.38 RATIO Tashi BoothTSH, THIRD [id number] 00:00:00* Test Item Value Reference Range Interpretation Comme [facility] TSH, THIRD GENERATION (test code = 2821) 1.300 UIU/ML Tashi BoothVITAMIN D, 25 [id number] 00:00:00* Test Item Value Reference Range Interpretation Comme [facility] VITAMIN D, 25 OH (test code = 4958) 43 NG/ML Tashi BoothCBC W/AUTO [id number] 00:00:00* Test Item Value Reference Range Interpretation [...] ABS NUCLEATED RBCS (test cod e = 75767) 0.00 K/UL COMMENTS (test code = 1016) (NOTE) Tashi BoothCOMPREHENSIVE METABOLIC [id number] 00:00:00* Test Item Value Reference Range Interpretation Comme nts GLUCOSE (test code = 2217) 89 MG/DL BUN (test code = 2208) 9 MG/DL CREATININE (test code = 2214) 0.64 MG/DL eGFR (2020 CKD-EPI) (test code = 41663) 113 ML/MIN/1.73 CALC BUN/CREAT (test code = [...] code = 2219) 20 U/L Tashi Rivero [id number] 09:49:49SPECIMEN NUMBER: [id number] CULTURE, URINE SPECIMEN NUMBER: [id number] SPECIMEN COMMENT: URINE SOURCE: URINE REPORT STATUS: FINAL FINAL REPORT: 07/28/2023 <10,000 CFU/ML UROGENITAL DAHIANA PRESENT NO COMMON PATHOGENS UNLESS OTHERWISE INDICATED, ALL TESTING PERFORMED AT [facility] [address] [place] [address] LICENSED CLUB MANAGER: KIANNA YING M.D. CLIA NUMBER [id number] [place]. [id number], [id number] 00:00:00* Test Item Value Reference Range Interpretation Comme nts CULTURE, URINE (test code = 08319) SPECIMEN NUMBER: [id number] Tashi Rivero, [id number] 00:00:00* Test Item Value Reference Range Interpretation Comme nts CULTURE, URINE (test code = 62829) SPECIMEN NUMBER: [id number] Tashi Rivero, [id number] 00:00:00* Test Item Value Reference Range Interpretation Comme nts CULTURE, URINE (test code = 84955) SPECIMEN NUMBER: [id number] Tashi Rivero, [id number] 00:00:00* Test Item Value Reference Range Interpretation Comme nts CULTURE, URINE (test code = 43325) SPECIMEN NUMBER: [id number] Tashi Rivero, [id number] 00:00:00* Test Item Value Reference Range Interpretation Comme nts CULTURE, URINE (test code = 95150) SPECIMEN NUMBER: [id number] Tashi Rivero, [id number] 00:00:00* Test Item Value Reference Range Interpretation Comme nts CULTURE, URINE (test code = 22730) SPECIMEN NUMBER: [id number] Tashi Rivero, [id number] 00:00:00* Test Item Value Reference Range Interpretation Comme nts CULTURE, URINE (test code = 40108) SPECIMEN NUMBER: [id number] Tashi Rivero, [id number] 00:00:00* Test Item Value Reference Range Interpretation Comme nts CULTURE, URINE (test code = 77195) SPECIMEN NUMBER: [id number] Tashi Rivero [id number] 00:00:00* Test Item Value Reference Range Interpretation Comme nts CULTURE, URINE (test code = 66059) SPECIMEN NUMBER: [id number] NASREEN Smith2024-01-18 10:27:00SPECIMEN NUMBER: [id number] CULTURE, URINE SPECIMEN NUMBER: [id number] SPECIMEN COMMENT: URINE SOURCE: URINE REPORT STATUS: FINAL FINAL REPORT: 06/27/2023 <10,000 CFU/ML UROGENITAL DAHIANA PRESENT NO COMMON PATHOGENS UNLESS OTHERWISE INDICATED, ALL TESTING PERFORMED AT [facility] [address] [place] [address] LICENSED CLUB MANAGER: KIANNA YING M.D. CLIA NUMBER [id number] [place]. [id number], [id number] 00:00:00* Test Item Value Reference Range Interpretation Comme nts CULTURE, URINE (test code = 74906) SPECIMEN NUMBER: [id number] Tashi Rivero [id number] 00:00:00* Test Item Value Reference Range Interpretation Comme nts CULTURE, URINE (test code = 90248) SPECIMEN NUMBER: [id number] Tashi Rivero [id number] 00:00:00* Test Item Value Reference Range Interpretation Comme nts CULTURE, URINE (test code = 26424) SPECIMEN NUMBER: [id number] Tashi Rivero [id number] 00:00:00* Test Item Value Reference Range Interpretation Comme nts CULTURE, URINE (test code = 63055) SPECIMEN NUMBER: [id number] Tashi Rivero [id number] 00:00:00* Test Item Value Reference Range Interpretation Comme nts CULTURE, URINE (test code = 63921) SPECIMEN NUMBER: [id number] Tashi Rivero, [id number] 00:00:00* Test Item Value Reference Range Interpretation Comme nts CULTURE, URINE (test code = 39356) SPECIMEN NUMBER: [id number] Tashi Rivero [id number] 00:00:00* Test Item Value Reference Range Interpretation Comme nts CULTURE, URINE (test code = 07222) SPECIMEN NUMBER: [id number] Tashi Rivero [id number] 00:00:00* Test Item Value Reference Range Interpretation Comme nts CULTURE, URINE (test code = 48191) SPECIMEN NUMBER: [id number] NASREEN Smith2024-01-18 00:00:00* Test Item Value Reference Range Interpretation Comme nts CULTURE, URINE (test code = 33459) SPECIMEN NUMBER: [id number] Tashi Rivero [id number] 10:56:45SPECIMEN NUMBER: [id number] CULTURE, URINE SPECIMEN NUMBER: [id number] SOURCE: URINE REPORT STATUS: FINAL FINAL REPORT: 05/15/2023 NO GROWTH AFTER 36 HOURS INCUBATION UNLESS OTHERWISE INDICATED, ALL TESTING PERFORMED AT [facility] [address] [place] [address] LICENSED CLUB MANAGER: KIANNA YING M.D. [place] NUMBER [id number] [place]. [id number], [id number] 00:00:00* Test Item Value Reference Range Interpretation Comme nts CULTURE, URINE (test code = 30216) SPECIMEN NUMBER: [id number] Tashi Rivero [id number] 00:00:00* Test Item Value Reference Range Interpretation Comme nts CULTURE, URINE (test code = 81430) SPECIMEN NUMBER: [id number] Tashi Rivero [id number] 00:00:00* Test Item Value Reference Range Interpretation Comme nts CULTURE, URINE (test code = 40711) SPECIMEN NUMBER: [id number] Tashi Rivero, [id number] 00:00:00* Test Item Value Reference Range Interpretation Comme nts CULTURE, URINE (test code = 82204) SPECIMEN NUMBER: [id number] Tashi AustinLTEDGAR, [id number] 00:00:00* Test Item Value Reference Range Interpretation Comme nts CULTURE, URINE (test code = 08305) SPECIMEN NUMBER: [id number] Tashi Rivero, [id number] 00:00:00* Test Item Value Reference Range Interpretation Comme nts CULTURE, URINE (test code = 39637) SPECIMEN NUMBER: [id number] Tashi Rivero [id number] 00:00:00* Test Item Value Reference Range Interpretation Comme nts CULTURE, URINE (test code = 95715) SPECIMEN NUMBER: [id number] Tashi Rivero [id number] 00:00:00* Test Item Value Reference Range Interpretation Comme nts CULTURE, URINE (test code = 40054) SPECIMEN NUMBER: [id number] Tashi Rivero [id number] 00:00:00* Test Item Value Reference Range Interpretation Comme nts CULTURE, URINE (test code = 02996) SPECIMEN NUMBER: [id number] NASREEN Smith2023-11-18 05:47:43SPECIMEN NUMBER: [id number] CULTURE, URINE SPECIMEN NUMBER: [id number] SPECIMEN COMMENT: URINE SOURCE: URINE REPORT STATUS: FINAL FINAL REPORT: 04/27/2023 NO GROWTH AFTER 36 HOURS INCUBATION UNLESS OTHERWISE INDICATED, ALL TESTING PERFORMED AT [facility] [address] [place] [address] LICENSED CLUB MANAGER: KIANNA YING M.D. CLIA NUMBER [id number] [facility] [place].[id number] CULTURE, [id number] 00:00:00* Test Item Value Reference Range Interpretation Comme nts CULTURE, URINE (test code = 00378) SPECIMEN NUMBER: [id number] Tashi Rivero [id number] 00:00:00* Test Item Value Reference Range Interpretation Comme nts CULTURE, URINE (test code = 52246) SPECIMEN NUMBER: [id number] Tashi Rivero, [id number] 00:00:00* Test Item Value Reference Range Interpretation Comme nts CULTURE, URINE (test code = 39727) SPECIMEN NUMBER: [id number] Tashi Rivero, [id number] 00:00:00* Test Item Value Reference Range Interpretation Comme nts CULTURE, URINE (test code = 48635) SPECIMEN NUMBER: [id number] Tashi Rivero, [id number] 00:00:00* Test Item Value Reference Range Interpretation Comme nts CULTURE, URINE (test code = 55722) SPECIMEN NUMBER: [id number] Tashi AustinLTURE, [id number] 00:00:00* Test Item Value Reference Range Interpretation Comme nts CULTURE, URINE (test code = 29088) SPECIMEN NUMBER: [id number] Tashi AustinLTURE, [id number] 00:00:00* Test Item Value Reference Range Interpretation Comme nts CULTURE, URINE (test code = 28974) SPECIMEN NUMBER: [id number] Tashi AustinLTURE, [id number] 00:00:00* Test Item Value Reference Range Interpretation Comme nts CULTURE, URINE (test code = 64358) SPECIMEN NUMBER: [id number] Tashi Rivero, [id number] 00:00:00* Test Item Value Reference Range Interpretation Comme nts CULTURE, URINE (test code = 38486) SPECIMEN NUMBER: [id number] Tashi Ponce (ANTI-NUCLEAR AB) WITH REFLEX [id number] 23:45:49* Test Item Value Reference Range Interpretation Comme nts ANTI-NUCLEAR ANTIBODIES (test code = 3506) NEGATIVE NEGATIVE Methodology is I [employer]direct Immunofluorescent Assay (IFA) with a titering system using Dlm3800 cells (Hep2 cells transfected with SS-A/Ro). DAYSI PATTERN (REPORTED TITER) (test code = 66443) SEE BELOW HOMOGENEOUS (test code = 18210) NEGATIVE TITER NEGATIVE SPECKLED (test code = 290860) NEGATIVE TITER NEGATIVE DENSE FINE SPECKLED (test code = 58425) NEGATIVE TITER NEGATIVE CENTROMERE (test code = 967398) NEGATIVE TITER NEGATIVE COARSE SPECKLED (test code = 872118) NEGATIVE TITER NEGATIVE DISCRETE NUCLEAR DOTS (test code = 732702) NEGATIVE TITER NEGATIVE NUCLEOLAR (test code = 826134) NEGATIVE TITER NEGATIVE NUCLEAR MEMBRANE (test code = 892842) NEGATIVE TITER NEGATIVE CYTO. RETICULAR (YEYO) (test code = 194016) NEGATIVE NEGATIVE COMMENTS (test code = 623516) NONE METHOD (test code = 58812) (NOTE) TESTING PERFORME D BY [employer] IFA PLATFORM.THE METHOD INCLUDES A SCREEN THRESHOLD OF 1:80, DIGITIZED AND COMPUTER ALGORITHM-ASSISTED INTERPRETATION OF TITERS AND DIGITAL PATTERNS, AND HEp-2 CELL LINE SUBSTRATE. ADDITIONAL UNUSUAL PATTERNS WILL BE GIVEN COMMENTS.FOR MORE INFORMATION, SEE [email or web address] C-REACTIVE [id number] 06:39:38* Test Item Value Reference Range Interpretation Comme [facility] C-REACTIVE PROTEIN (test cod e = 3513) <0.3 MG/DL <0.5 RHEUMATOID FACTOR, [id number] 06:39:38* Test Item Value Reference Range Interpretation Comme [facility] RHEUMATOID FACTOR, QUANT (test code = 3502) 13 IU/ML <14 UNLESS OTHERWISE INDICATED, ALL TESTING PERFORMED AT [facility] [address] [place] [address] LICENSED CLUB MANAGER: KIANNA YING M.D. CLIA NUMBER [id number] [place]. [id number] TSH, THIRD [id number] 05:18:34* Test Item Value Reference Range Interpretation Comme [facility] TSH, THIRD GENERATION (test code = 2821) 1.310 UIU/ML 0.400-4.100 VITAMIN D, 25 [id number] 05:17:57* Test Item Value Reference Range Interpretation Comme [facility] VITAMIN D, 25 OH (test code = [...] . NG/ML 30-100 CBC W/AUTO DIFF WITH [id number] 04:02:12* Test Item Value Reference Range Interpretation Comme [facility] WBC (test code = 1001) 6.8 K/UL [...] 0.00-0.10 ABS NUCLEATED RBCS (test code = 86383) 0.00 K/UL 0.00-0.11 HEMOGLOBIN [id number] 03:51:19* Test Item Value Reference Range Interpretation Comme [facility] HEMOGLOBIN A1c (test code = 79394) 5.1 % 4.2-5.6 VITAMIN D, 25 [id number] 00:00:00* Test Item Value Reference Range Interpretation Comme [facility] VITAMIN D, 25 OH (test code = 4958) 19 NG/ML Tashi Marques AustinC-REACTIVE [id number] 00:00:00* Test Item Value Reference Range Interpretation Comme nts C-REACTIVE PROTEIN (test cod e = 3513) <0.3 MG/DL Tashi Ponce (ANTI-NUCLEAR AB) WITH REFLEX [id number] 00:00:00* Test Item Value Reference Range Interpretation Comme nts ANTI-NUCLEAR ANTIBODIES (tami t code = 3506) NEGATIVE DAYSI PATTERN (REPORTED TITER) (test code = 20104) SEE BELOW HOMOGENEOUS (test code = 08821) NEGATIVE TITER SPECKLED (test code = 889969) NEGATIVE TITER DENSE FINE SPECKLED (test co de = 14852) NEGATIVE TITER CENTROMERE (test code = 461118) NEGATIVE TITER COARSE SPECKLED (test code = 152448) NEGATIVE TITER DISCRETE NUCLEAR DOTS (test code = 087623) NEGATIVE TITER NUCLEOLAR (test code = 547331) NEGATIVE TITER NUCLEAR MEMBRANE (test code = 108159) NEGATIVE TITER CYTO. RETICULAR (YEYO) (test code = 448884) NEGATIVE COMMENTS (test code = 381132) NONE METHOD (test code = 19068) (NOTE) Tashi BoothRHEUMATOID FACTOR, [id number] 00:00:00* Test Item Value Reference Range Interpretation Comme nts RHEUMATOID FACTOR, QUANT (te st code = 3502) 13 IU/ML Tashi BoothCBC W/AUTO [id number] 00:00:00* Test Item Value Reference Range Interpretation [...] ABS NUCLEATED RBCS (test cod e = 28519) 0.00 K/UL Tashi OhH, THIRD [id number] 00:00:00* Test Item Value Reference Range Interpretation Comme sreekanth TSH, THIRD GENERATION (test code = 2821) 1.310 UIU/ML Tashi BoothHEMOGLOBIN [id number] 00:00:00* Test Item Value Reference Range Interpretation Comme sreekanth HEMOGLOBIN A1c (test code = 23279) 5.1 % Tashi BoothVITAMIN D, 25 [id number] 00:00:00* Test Item Value Reference Range Interpretation Comme sreekanth VITAMIN D, 25 OH (test code = 4958) 19 NG/ML Tashi BoothC-REACTIVE [id number] 00:00:00* Test Item Value Reference Range Interpretation Comme sreekanth C-REACTIVE PROTEIN (test cod e = 3513) <0.3 MG/DL Tashi Ponce (ANTI-NUCLEAR AB) WITH REFLEX [id number] 00:00:00* Test Item Value Reference Range Interpretation Comme sreekanth ANTI-NUCLEAR ANTIBODIES (tami t code = 3506) NEGATIVE DAYSI PATTERN (REPORTED TITER) (test code = 88734) SEE BELOW HOMOGENEOUS (test code = 48512) NEGATIVE TITER SPECKLED (test code = 775920) NEGATIVE TITER DENSE FINE SPECKLED (test co de = 18063) NEGATIVE TITER CENTROMERE (test code = 201355) NEGATIVE TITER COARSE SPECKLED (test code = 283109) NEGATIVE TITER DISCRETE NUCLEAR DOTS (test code = 964074) NEGATIVE TITER NUCLEOLAR (test code = 635585) NEGATIVE TITER NUCLEAR MEMBRANE (test code = 007785) NEGATIVE TITER CYTO. RETICULAR (YEYO) (test code = 420661) NEGATIVE COMMENTS (test code = 294511) NONE METHOD (test code = 24485) (NOTE) Tashi BoothRHEUMATOID FACTOR, [id number] 00:00:00* Test Item Value Reference Range Interpretation Comme nts RHEUMATOID FACTOR, QUANT (te st code = 3502) 13 IU/ML Tashi BoothCBC W/AUTO [id number] 00:00:00* Test Item Value Reference Range Interpretation [...] ABS NUCLEATED RBCS (test cod e = 23455) 0.00 K/UL Tsahi BoothTSH, THIRD [id number] 00:00:00* Test Item Value Reference Range Interpretation Comme nts TSH, THIRD GENERATION (test code = 2821) 1.310 UIU/ML Tashi BoothHEMOGLOBIN [id number] 00:00:00* Test Item Value Reference Range Interpretation Comme nts HEMOGLOBIN A1c (test code = 13726) 5.1 % Tashi BoothVITAMIN D, 25 [id number] 00:00:00* Test Item Value Reference Range Interpretation Comme nts VITAMIN D, 25 OH (test code = 4958) 19 NG/ML Tashi BoothC-REACTIVE [id number] 00:00:00* Test Item Value Reference Range Interpretation Comme nts C-REACTIVE PROTEIN (test cod e = 3513) <0.3 MG/DL Tashi BoothANA (ANTI-NUCLEAR AB) WITH REFLEX [id number] 00:00:00* Test Item Value Reference Range Interpretation Comme nts ANTI-NUCLEAR ANTIBODIES (tami t code = 3506) NEGATIVE DAYSI PATTERN (REPORTED TITER) (test code = 68934) SEE BELOW HOMOGENEOUS (test code = 63642) NEGATIVE TITER SPECKLED (test code = 557793) NEGATIVE TITER DENSE FINE SPECKLED (test co de = 28324) NEGATIVE TITER CENTROMERE (test code = 070933) NEGATIVE TITER COARSE SPECKLED (test code = 554917) NEGATIVE TITER DISCRETE NUCLEAR DOTS (test code = 738953) NEGATIVE TITER NUCLEOLAR (test code = 887605) NEGATIVE TITER NUCLEAR MEMBRANE (test code = 562007) NEGATIVE TITER CYTO. RETICULAR (YEYO) (test code = 969673) NEGATIVE COMMENTS (test code = 233235) NONE METHOD (test code = 31265) (NOTE) Tashi BoothRHEUMATOID FACTOR, [id number] 00:00:00* Test Item Value Reference Range Interpretation Comme nts RHEUMATOID FACTOR, QUANT (te st code = 3502) 13 IU/ML Tashi BoothCBC W/AUTO [id number] 00:00:00* Test Item Value Reference Range Interpretation [...] ABS NUCLEATED RBCS (test cod e = 88310) 0.00 K/UL Tashi BoothTSH, THIRD [id number] 00:00:00* Test Item Value Reference Range Interpretation Comme sreekanth TSH, THIRD GENERATION (test code = 2821) 1.310 UIU/ML Tashi BoothHEMOGLOBIN [id number] 00:00:00* Test Item Value Reference Range Interpretation Comme sreekanth HEMOGLOBIN A1c (test code = 54601) 5.1 % Tashi BoothVITAMIN D, 25 [id number] 00:00:00* Test Item Value Reference Range Interpretation Comme sreekanth VITAMIN D, 25 OH (test code = 4958) 19 NG/ML Tashi BoothC-REACTIVE [id number] 00:00:00* Test Item Value Reference Range Interpretation Comme sreekanth C-REACTIVE PROTEIN (test cod e = 3513) <0.3 MG/DL Tashi BoothDAYSI (ANTI-NUCLEAR AB) WITH REFLEX [id number] 00:00:00* Test Item Value Reference Range Interpretation Comme nts ANTI-NUCLEAR ANTIBODIES (tami t code = 3506) NEGATIVE DAYSI PATTERN (REPORTED TITER) (test code = 49246) SEE BELOW HOMOGENEOUS (test code = 21488) NEGATIVE TITER SPECKLED (test code = 399986) NEGATIVE TITER DENSE FINE SPECKLED (test co de = 50198) NEGATIVE TITER CENTROMERE (test code = 523358) NEGATIVE TITER COARSE SPECKLED (test code = 141696) NEGATIVE TITER DISCRETE NUCLEAR DOTS (test code = 493242) NEGATIVE TITER NUCLEOLAR (test code = 370155) NEGATIVE TITER NUCLEAR MEMBRANE (test code = 940112) NEGATIVE TITER CYTO. RETICULAR (YEYO) (test code = 147306) NEGATIVE COMMENTS (test code = 009349) NONE METHOD (test code = 36910) (NOTE) Tashi BoothRHEUMATOID FACTOR, [id number] 00:00:00* Test Item Value Reference Range Interpretation Comme nts RHEUMATOID FACTOR, QUANT (te st code = 3502) 13 IU/ML Tashi BoothCBC W/AUTO [id number] 00:00:00* Test Item Value Reference Range Interpretation [...] ABS NUCLEATED RBCS (test cod e = 46278) 0.00 K/UL Tashi OhH, THIRD [id number] 00:00:00* Test Item Value Reference Range Interpretation Comme nts TSH, THIRD GENERATION (test code = 2821) 1.310 UIU/ML Tashi BoothHEMOGLOBIN [id number] 00:00:00* Test Item Value Reference Range Interpretation Comme nts HEMOGLOBIN A1c (test code = 92147) 5.1 % Tashi BoothVITAMIN D, 25 [id number] 00:00:00* Test Item Value Reference Range Interpretation Comme nts VITAMIN D, 25 OH (test code = 4958) 19 NG/ML Tashi BoothC-REACTIVE [id number] 00:00:00* Test Item Value Reference Range Interpretation Comme nts C-REACTIVE PROTEIN (test cod e = 3513) <0.3 MG/DL Tashi BoothANA (ANTI-NUCLEAR AB) WITH REFLEX [id number] 00:00:00* Test Item Value Reference Range Interpretation Comme nts ANTI-NUCLEAR ANTIBODIES (tami t code = 3506) NEGATIVE DAYSI PATTERN (REPORTED TITER) (test code = 67023) SEE BELOW HOMOGENEOUS (test code = 58845) NEGATIVE TITER SPECKLED (test code = 432218) NEGATIVE TITER DENSE FINE SPECKLED (test co de = 96102) NEGATIVE TITER CENTROMERE (test code = 243921) NEGATIVE TITER COARSE SPECKLED (test code = 650130) NEGATIVE TITER DISCRETE NUCLEAR DOTS (test code = 659882) NEGATIVE TITER NUCLEOLAR (test code = 605182) NEGATIVE TITER NUCLEAR MEMBRANE (test code = 621083) NEGATIVE TITER CYTO. RETICULAR (YEYO) (test code = 405124) NEGATIVE COMMENTS (test code = 208692) NONE METHOD (test code = 40404) (NOTE) Tashi BoothRHEUMATOID FACTOR, [id number] 00:00:00* Test Item Value Reference Range Interpretation Comme nts RHEUMATOID FACTOR, QUANT (te st code = 3502) 13 IU/ML Tashi BoothCBC W/AUTO [id number] 00:00:00* Test Item Value Reference Range Interpretation [...] ABS NUCLEATED RBCS (test cod e = 64472) 0.00 K/UL Tashi BoothTSH, THIRD [id number] 00:00:00* Test Item Value Reference Range Interpretation Comme sreekanth TSH, THIRD GENERATION (test code = 2821) 1.310 UIU/ML Tashi BoothHEMOGLOBIN [id number] 00:00:00* Test Item Value Reference Range Interpretation Comme sreekanth HEMOGLOBIN A1c (test code = 60834) 5.1 % Tashi BoothVITAMIN D, 25 [id number] 00:00:00* Test Item Value Reference Range Interpretation Comme sreekanth VITAMIN D, 25 OH (test code = 4958) 19 NG/ML Tashi BoothC-REACTIVE [id number] 00:00:00* Test Item Value Reference Range Interpretation Comme sreekanth C-REACTIVE PROTEIN (test cod e = 3513) <0.3 MG/DL Tashi BoothDAYSI (ANTI-NUCLEAR AB) WITH REFLEX [id number] 00:00:00* Test Item Value Reference Range Interpretation Comme [facility] ANTI-NUCLEAR ANTIBODIES (tami t code = 3506) NEGATIVE DAYSI PATTERN (REPORTED TITER) (test code = 61203) SEE BELOW HOMOGENEOUS (test code = 22454) NEGATIVE TITER SPECKLED (test code = 204479) NEGATIVE TITER DENSE FINE SPECKLED (test co de = 66014) NEGATIVE TITER CENTROMERE (test code = 881125) NEGATIVE TITER COARSE SPECKLED (test code = 292323) NEGATIVE TITER DISCRETE NUCLEAR DOTS (test code = 945739) NEGATIVE TITER NUCLEOLAR (test code = 226693) NEGATIVE TITER NUCLEAR MEMBRANE (test code = 150366) NEGATIVE TITER CYTO. RETICULAR (YEYO) (test code = 550993) NEGATIVE COMMENTS (test code = 197635) NONE METHOD (test code = 11996) (NOTE) Tashi BoothRHEUMATOID FACTOR, [id number] 00:00:00* Test Item Value Reference Range Interpretation Comme nts RHEUMATOID FACTOR, QUANT (te st code = 3502) 13 IU/ML Tashi BoothCBC W/AUTO [id number] 00:00:00* Test Item Value Reference Range Interpretation [...] ABS NUCLEATED RBCS (test cod e = 78712) 0.00 K/UL Tashi Avalos, THIRD [id number] 00:00:00* Test Item Value Reference Range Interpretation Comme nts TSH, THIRD GENERATION (test code = 2821) 1.310 UIU/ML Tashi BoothHEMOGLOBIN [id number] 00:00:00* Test Item Value Reference Range Interpretation Comme nts HEMOGLOBIN A1c (test code = 84353) 5.1 % Tashi BoothVITAMIN D, 25 [id number] 00:00:00* Test Item Value Reference Range Interpretation Comme nts VITAMIN D, 25 OH (test code = 4958) 19 NG/ML Tashi BoothC-REACTIVE [id number] 00:00:00* Test Item Value Reference Range Interpretation Comme nts C-REACTIVE PROTEIN (test cod e = 3513) <0.3 MG/DL Tashi BoothANA (ANTI-NUCLEAR AB) WITH REFLEX [id number] 00:00:00* Test Item Value Reference Range Interpretation Comme nts ANTI-NUCLEAR ANTIBODIES (tami t code = 3506) NEGATIVE DAYSI PATTERN (REPORTED TITER) (test code = 36640) SEE BELOW HOMOGENEOUS (test code = 16662) NEGATIVE TITER SPECKLED (test code = 488258) NEGATIVE TITER DENSE FINE SPECKLED (test co de = 13390) NEGATIVE TITER CENTROMERE (test code = 591602) NEGATIVE TITER COARSE SPECKLED (test code = 421098) NEGATIVE TITER DISCRETE NUCLEAR DOTS (test code = 228896) NEGATIVE TITER NUCLEOLAR (test code = 372433) NEGATIVE TITER NUCLEAR MEMBRANE (test code = 997147) NEGATIVE TITER CYTO. RETICULAR (YEYO) (test code = 986474) NEGATIVE COMMENTS (test code = 879311) NONE METHOD (test code = 58678) (NOTE) Tashi BoothRHEUMATOID FACTOR, [id number] 00:00:00* Test Item Value Reference Range Interpretation Comme nts RHEUMATOID FACTOR, QUANT (te st code = 3502) 13 IU/ML Tashi BoothCBC W/AUTO [id number] 00:00:00* Test Item Value Reference Range Interpretation [...] ABS NUCLEATED RBCS (test cod e = 36933) 0.00 K/UL Tashi BoothTSH, THIRD [id number] 00:00:00* Test Item Value Reference Range Interpretation Comme [facility] TSH, THIRD GENERATION (test code = 2821) 1.310 UIU/ML Tashi BoothHEMOGLOBIN [id number] 00:00:00* Test Item Value Reference Range Interpretation Comme [facility] HEMOGLOBIN A1c (test code = 73898) 5.1 % Tashi BoothVITAMIN D, 25 [id number] 00:00:00* Test Item Value Reference Range Interpretation Comme [facility] VITAMIN D, 25 OH (test code = 4958) 19 NG/ML Tashi BoothC-REACTIVE [id number] 00:00:00* Test Item Value Reference Range Interpretation Comme [facility] C-REACTIVE PROTEIN (test cod e = 3513) <0.3 MG/DL Tashi Ponce (ANTI-NUCLEAR AB) WITH REFLEX [id number] 00:00:00* Test Item Value Reference Range Interpretation Comme nts ANTI-NUCLEAR ANTIBODIES (tami t code = 3506) NEGATIVE DAYSI PATTERN (REPORTED TITER) (test code = 45699) SEE BELOW HOMOGENEOUS (test code = 65334) NEGATIVE TITER SPECKLED (test code = 171206) NEGATIVE TITER DENSE FINE SPECKLED (test co de = 62347) NEGATIVE TITER CENTROMERE (test code = 864903) NEGATIVE TITER COARSE SPECKLED (test code = 941031) NEGATIVE TITER DISCRETE NUCLEAR DOTS (test code = 524280) NEGATIVE TITER NUCLEOLAR (test code = 366274) NEGATIVE TITER NUCLEAR MEMBRANE (test code = 332643) NEGATIVE TITER CYTO. RETICULAR (YEYO) (test code = 878301) NEGATIVE COMMENTS (test code = 525858) NONE METHOD (test code = 79413) (NOTE) Tashi BoothRHEUMATOID FACTOR, [id number] 00:00:00* Test Item Value Reference Range Interpretation Comme nts RHEUMATOID FACTOR, QUANT (te st code = 3502) 13 IU/ML Tashi BoothCBC W/AUTO [id number] 00:00:00* Test Item Value Reference Range Interpretation [...] ABS NUCLEATED RBCS (test cod e = 68262) 0.00 K/UL Tashi BoothTSH, THIRD [id number] 00:00:00* Test Item Value Reference Range Interpretation Comme nts TSH, THIRD GENERATION (test code = 2821) 1.310 UIU/ML Tashi BoothHEMOGLOBIN [id number] 00:00:00* Test Item Value Reference Range Interpretation Comme nts HEMOGLOBIN A1c (test code = 05507) 5.1 % Tashi BoothVITAMIN D, 25 [id number] 00:00:00* Test Item Value Reference Range Interpretation Comme nts VITAMIN D, 25 OH (test code = 4958) 19 NG/ML Tashi BoothC-REACTIVE [id number] 00:00:00* Test Item Value Reference Range Interpretation Comme nts C-REACTIVE PROTEIN (test cod e = 3513) <0.3 MG/DL Tashi Ponce (ANTI-NUCLEAR AB) WITH REFLEX [id number] 00:00:00* Test Item Value Reference Range Interpretation Comme nts ANTI-NUCLEAR ANTIBODIES (tami t code = 3506) NEGATIVE DAYSI PATTERN (REPORTED TITER) (test code = 48894) SEE BELOW HOMOGENEOUS (test code = 06652) NEGATIVE TITER SPECKLED (test code = 547327) NEGATIVE TITER DENSE FINE SPECKLED (test co de = 29975) NEGATIVE TITER CENTROMERE (test code = 538467) NEGATIVE TITER COARSE SPECKLED (test code = 193956) NEGATIVE TITER DISCRETE NUCLEAR DOTS (test code = 499234) NEGATIVE TITER NUCLEOLAR (test code = 683682) NEGATIVE TITER NUCLEAR MEMBRANE (test code = 363520) NEGATIVE TITER CYTO. RETICULAR (YEYO) (test code = 599281) NEGATIVE COMMENTS (test code = 943024) NONE METHOD (test code = 19273) (NOTE) Tashi BoothRHEUMATOID FACTOR, [id number] 00:00:00* Test Item Value Reference Range Interpretation Comme nts RHEUMATOID FACTOR, QUANT (te st code = 3502) 13 IU/ML Tashi BoothCBC W/AUTO [id number] 00:00:00* Test Item Value Reference Range Interpretation [...] ABS NUCLEATED RBCS (test cod e = 96964) 0.00 K/UL Tashi BoothTSH, THIRD [id number] 00:00:00* Test Item Value Reference Range Interpretation Comme nts TSH, THIRD GENERATION (test code = 2821) 1.310 UIU/ML Tashi BoothHEMOGLOBIN [id number] 00:00:00* Test Item Value Reference Range Interpretation Comme nts HEMOGLOBIN A1c (test code = 48252) 5.1 % Tashi BoothSURGICAL PATHOLOGY [id number] 12:18:31* Test Item Value Reference Range Interpretation [...] Vincent-brownNUMBER OF TISSUE PIECES: multipleSUBMITTED IN CASSETTE(S): [id number]: FormalinCOMMENTS:Received on cytology brush. Mostly blood-tinged mucus. Filtered,scraped, entirely submitted. PATHOLOGIST: (test code = 8250) (NOTE) Hira Rubalcava M.D. Board certified in Dermatopathology, AnatomicPathology Specimens processed and interpreted at [facility], [address] [place] [address], , CLIA: [id number] CPT: (test code = 8400) (NOTE) 85603 UNLESS OT HERWISE INDICATED, ALL TESTING PERFORMED AT [facility] [address] [place] [address] LICENSED CLUB MANAGER: KIANNA YING M.D. CLIA NUMBER [id number] [place] [id number] SURGICAL PATHOLOGY [id number] 00:00:00* Test Item Value Reference Range Interpretation Comme nts DIAGNOSIS: (test code = 8200) (NOTE) MICROSCOPIC DESCRIPTION: (te st code = 8210) (NOTE) CLINICAL DATA: (test code = 8401) (NOTE) GROSS DESCRIPTION: (test code = 8220) (NOTE) PATHOLOGIST: (test code = 8250) (NOTE) CPT: (test code = 8400) (NOTE) PDFE (test code = PDFReport) PDF Tashi Marques [facility] [id number] 00:00:00* Test Item Value Reference Range Interpretation Comme nts DIAGNOSIS: (test code = 8200) (NOTE) MICROSCOPIC DESCRIPTION: (te st code = 8210) (NOTE) CLINICAL DATA: (test code = 8401) (NOTE) GROSS DESCRIPTION: (test code = 8220) (NOTE) PATHOLOGIST: (test code = 8250) (NOTE) CPT: (test code = 8400) (NOTE) PDFE (test code = PDFReport) PDF [facility] [id number] 00:00:00* Test Item Value Reference Range Interpretation Comme nts DIAGNOSIS: (test code = 8200) (NOTE) MICROSCOPIC DESCRIPTION: (te st code = 8210) (NOTE) CLINICAL DATA: (test code = 8401) (NOTE) GROSS DESCRIPTION: (test code = 8220) (NOTE) PATHOLOGIST: (test code = 8250) (NOTE) CPT: (test code = 8400) (NOTE) PDFE (test code = PDFReport) PDF [facility]ashi Marques [facility] [id number] 00:00:00* Test Item Value Reference Range Interpretation Comme nts DIAGNOSIS: (test code = 8200) (NOTE) MICROSCOPIC DESCRIPTION: (te st code = 8210) (NOTE) CLINICAL DATA: (test code = 8401) (NOTE) GROSS DESCRIPTION: (test code = 8220) (NOTE) PATHOLOGIST: (test code = 8250) (NOTE) CPT: (test code = 8400) (NOTE) PDFE (test code = PDFReport) PDF Tashi Marques [facility] [id number] 00:00:00* Test Item Value Reference Range Interpretation Comme nts DIAGNOSIS: (test code = 8200) (NOTE) MICROSCOPIC DESCRIPTION: (te st code = 8210) (NOTE) CLINICAL DATA: (test code = 8401) (NOTE) GROSS DESCRIPTION: (test code = 8220) (NOTE) PATHOLOGIST: (test code = 8250) (NOTE) CPT: (test code = 8400) (NOTE) PDFE (test code = PDFReport) PDF Tashi Marques [facility] [id number] 00:00:00* Test Item Value Reference Range Interpretation Comme nts DIAGNOSIS: (test code = 8200) (NOTE) MICROSCOPIC DESCRIPTION: (te st code = 8210) (NOTE) CLINICAL DATA: (test code = 8401) (NOTE) GROSS DESCRIPTION: (test code = 8220) (NOTE) PATHOLOGIST: (test code = 8250) (NOTE) CPT: (test code = 8400) (NOTE) PDFE (test code = PDFReport) PDF Tashi Marques [facility] [id number] 00:00:00* Test Item Value Reference Range Interpretation Comme nts DIAGNOSIS: (test code = 8200) (NOTE) MICROSCOPIC DESCRIPTION: (te st code = 8210) (NOTE) CLINICAL DATA: (test code = 8401) (NOTE) GROSS DESCRIPTION: (test code = 8220) (NOTE) PATHOLOGIST: (test code = 8250) (NOTE) CPT: (test code = 8400) (NOTE) PDFE (test code = PDFReport) PDF Tashi Marques [facility] [id number] 00:00:00* Test Item Value Reference Range Interpretation Comme nts DIAGNOSIS: (test code = 8200) (NOTE) MICROSCOPIC DESCRIPTION: (te st code = 8210) (NOTE) CLINICAL DATA: (test code = 8401) (NOTE) GROSS DESCRIPTION: (test code = 8220) (NOTE) PATHOLOGIST: (test code = 8250) (NOTE) CPT: (test code = 8400) (NOTE) PDFE (test code = PDFReport) PDF Tashi Marques [facility] [id number] 00:00:00* Test Item Value Reference Range Interpretation Comme nts DIAGNOSIS: (test code = 8200) (NOTE) MICROSCOPIC DESCRIPTION: (te st code = 8210) (NOTE) CLINICAL DATA: (test code = 8401) (NOTE) GROSS DESCRIPTION: (test code = 8220) (NOTE) PATHOLOGIST: (test code = 8250) (NOTE) CPT: (test code = 8400) (NOTE) PDFE (test code = PDFReport) PDF Tashi BoothPAP TEST, THINPREP, [id number] 14:45:36* Test Item Value Reference Range Interpretation Comme nts SOURCE: (test code = 8001) Cervical/Endoc ervical SLIDES: (test code = 8011) 2 LMP: (test code = 8021) 02/08/2023 SPECIMEN ADEQUACY: (test code = 67362) (NOTE) Unsatisfactory ( see Interpretation). INTERPRETATION: (test code = 60335) UNSATISFACTORY ; SEE BELOW A ---- UNSATISFACTORY FOR EVALUATION Insufficient cellularity (Charges deleted, please resubmit) ------- OTHER COMMENTS: (test code = 8081) (NOTE) Background mater ial consistent with lubricant is present, whichinterferes with specimen processing.Interpreted using an alternate method of processing. This testwas developed and its performance characteristics [facility] It has not been cleared orapproved by the FDA. The laboratory is regulated under CLIA asqualified to perform high-complexity testing. This test is usedfor clinical purposes. It should not be regarded asinvestigational or for research. PHOTOGRAPHIC LITHOGRAPHER : (test code = 8101) UMBERTO Barnes (ASC) QC TECHNOLOGIST: (test code = 8111) UMBERTO Byrd(ASC )[facility] LOCATION: (test code = 19663) (NOTE) Specimens proces sed and interpreted at [facility], [address] [place] [address], , CLIA: [id number] CPT: (test code = 8140) (NOTE) 01642 UNLESS OTH ERWISE INDICATED, COMPUTER AIDED AND PHOTOGRAPHIC LITHOGRAPHER SCREENING PERFORMED. The Pap test is a screening test with an inherent, but low probability of error. Your patient should be reminded to consult you immediately if she experiences any suspicious signs or symptoms, regardless of her Pap test result. An alternate report format containing images or consolidated prior Pap history is available as applicable. PAP TEST, THINPREP, [id number] 00:00:00* Test Item Value Reference Range Interpretation Comme nts SOURCE: (test code = 8001) Cervical/Endocervical SLIDES: (test code = 8011) 2 LMP: (test code = 8021) 02/08/2023 SPECIMEN ADEQUACY: (test code = 28220) (NOTE) INTERPRETATION: (test code = 30034) UNSATISFACTORY; SEE BELOW OTHER COMMENTS: (test code = 8081) (NOTE) PHOTOGRAPHIC LITHOGRAPHER: (test code = 8101) UMBERTO Barnes (ASCP) QC TECHNOLOGIST: (test code = 8111) UMBERTO Byrd(ASCP)[facility] LOCATION: (test code = 29238) (NOTE) CPT: (test code = 8140) (NOTE) Tashi BoothPAP TEST, THINPREP, [id number] 00:00:00* Test Item Value Reference Range Interpretation Comme nts SOURCE: (test code = 8001) Cervical/Endocervical SLIDES: (test code = 8011) 2 LMP: (test code = 8021) 02/08/2023 SPECIMEN ADEQUACY: (test code = 39918) (NOTE) INTERPRETATION: (test code = 96331) UNSATISFACTORY; SEE BELOW OTHER COMMENTS: (test code = 8081) (NOTE) PHOTOGRAPHIC LITHOGRAPHER: (test code = 8101) UMBERTO Barnes (ASCP) QC TECHNOLOGIST: (test code = 8111) UMBERTO Byrd(ASCP)[facility] LOCATION: (test code = 35271) (NOTE) CPT: (test code = 8140) (NOTE) Tashi BoothNANIP TEST, THINPREP, [id number] 00:00:00* Test Item Value Reference Range Interpretation Comme nts SOURCE: (test code = 8001) Cervical/Endocervical SLIDES: (test code = 8011) 2 LMP: (test code = 8021) 02/08/2023 SPECIMEN ADEQUACY: (test code = 63379) (NOTE) INTERPRETATION: (test code = 01197) UNSATISFACTORY; SEE BELOW OTHER COMMENTS: (test code = 8081) (NOTE) PHOTOGRAPHIC LITHOGRAPHER: (test code = 8101) UMBERTO Barnes (ASCP) QC TECHNOLOGIST: (test code = 8111) UMBERTO Byrd(ASCP)[facility] LOCATION: (test code = 92156) (NOTE) CPT: (test code = 8140) (NOTE) Tashi BoothPAP TEST, THINPREP, [id number] 00:00:00* Test Item Value Reference Range Interpretation Comme nts SOURCE: (test code = 8001) Cervical/Endocervical SLIDES: (test code = 8011) 2 LMP: (test code = 8021) 02/08/2023 SPECIMEN ADEQUACY: (test code = 99055) (NOTE) INTERPRETATION: (test code = 18991) UNSATISFACTORY; SEE BELOW OTHER COMMENTS: (test code = 8081) (NOTE) PHOTOGRAPHIC LITHOGRAPHER: (test code = 8101) UMBERTO Barnes (ASCP) QC TECHNOLOGIST: (test code = 8111) UMBERTO Byrd(ASCP)[facility] LOCATION: (test code = 02135) (NOTE) CPT: (test code = 8140) (NOTE) Tashi CohenP TEST, THINPREP, [id number] 00:00:00* Test Item Value Reference Range Interpretation Comme nts SOURCE: (test code = 8001) Cervical/Endocervical SLIDES: (test code = 8011) 2 LMP: (test code = 8021) 02/08/2023 SPECIMEN ADEQUACY: (test code = 70302) (NOTE) INTERPRETATION: (test code = 02323) UNSATISFACTORY; SEE BELOW OTHER COMMENTS: (test code = 8081) (NOTE) PHOTOGRAPHIC LITHOGRAPHER: (test code = 8101) UMBERTO Barnes (ASCP) QC TECHNOLOGIST: (test code = 8111) UMBERTO Byrd(ASCP)[facility] LOCATION: (test code = 43710) (NOTE) CPT: (test code = 8140) (NOTE) Tashi CohenP TEST, THINPREP, [id number] 00:00:00* Test Item Value Reference Range Interpretation Comme nts SOURCE: (test code = 8001) Cervical/Endocervical SLIDES: (test code = 8011) 2 LMP: (test code = 8021) 02/08/2023 SPECIMEN ADEQUACY: (test code = 69005) (NOTE) INTERPRETATION: (test code = 42584) UNSATISFACTORY; SEE BELOW OTHER COMMENTS: (test code = 8081) (NOTE) PHOTOGRAPHIC LITHOGRAPHER: (test code = 8101) UMBERTO Barnes (ASCP) QC TECHNOLOGIST: (test code = 8111) UMBERTO Byrd(ASCP)[facility] LOCATION: (test code = 89794) (NOTE) CPT: (test code = 8140) (NOTE) Tashi CohenP TEST, THINPREP, [id number] 00:00:00* Test Item Value Reference Range Interpretation Comme nts SOURCE: (test code = 8001) Cervical/Endocervical SLIDES: (test code = 8011) 2 LMP: (test code = 8021) 02/08/2023 SPECIMEN ADEQUACY: (test code = 71250) (NOTE) INTERPRETATION: (test code = 62951) UNSATISFACTORY; SEE BELOW OTHER COMMENTS: (test code = 8081) (NOTE) PHOTOGRAPHIC LITHOGRAPHER: (test code = 8101) UMBERTO Barnes (ASCP) QC TECHNOLOGIST: (test code = 8111) UMBERTO Byrd(ASCP)[facility] LOCATION: (test code = 74229) (NOTE) CPT: (test code = 8140) (NOTE) Tashi BoohtNANIP TEST, THINPREP, [id number] 00:00:00* Test Item Value Reference Range Interpretation Comme nts SOURCE: (test code = 8001) Cervical/Endocervical SLIDES: (test code = 8011) 2 LMP: (test code = 8021) 02/08/2023 SPECIMEN ADEQUACY: (test code = 65684) (NOTE) INTERPRETATION: (test code = 65706) UNSATISFACTORY; SEE BELOW OTHER COMMENTS: (test code = 8081) (NOTE) PHOTOGRAPHIC LITHOGRAPHER: (test code = 8101) UMBERTO Barnes (ASCP) QC TECHNOLOGIST: (test code = 8111) UMBERTO Byrd(ASCP)[facility] LOCATION: (test code = 78300) (NOTE) CPT: (test code = 8140) (NOTE) Tashi CohenP TEST, THINPREP, [id number] 00:00:00* Test Item Value Reference Range Interpretation Comme nts SOURCE: (test code = 8001) Cervical/Endocervical SLIDES: (test code = 8011) 2 LMP: (test code = 8021) 02/08/2023 SPECIMEN ADEQUACY: (test code = 83266) (NOTE) INTERPRETATION: (test code = 14706) UNSATISFACTORY; SEE BELOW OTHER COMMENTS: (test code = 8081) (NOTE) PHOTOGRAPHIC LITHOGRAPHER: (test code = 8101) UMBERTO Barnes (ASCP) QC TECHNOLOGIST: (test code = 8111) UMBERTO Byrd(ASCP)[facility] LOCATION: (test code = 90884) (NOTE) CPT: (test code = 8140) (NOTE) Tashi Marques AustinHPV HIGH RISK WITH GENOTYPE, [id number] 13:04:31* Test Item Value Reference Range Interpretation Comme nts HPV HIGH RISK INTERP (test code = 47984) POSITIVE NEGATIVE A HPV 16 (test code = 19067) NEGATIVE HPV 18 (test code = 73612) NEGATIVE HPV, HR, OTHER GENOTYPES (test code = 51171) POSITIVE A Testing methodol ogy is real-time PCR utilizing hydrolysis probes with the [employer] 4800 system. The test individually detects genotypes 16 and 18, as well as the other 12 high risk types (31,33,35,39,45,51,52,56 ,58,59,66,68). The expected result is negative. A negative result does not rule out the presence of HPV not included in the genotype set, a low level of infection or specimen sampling error. UNLESS OTHERWISE INDICATED, ALL TESTING PERFORMED AT [facility] [address] [place] [address] LICENSED CLUB MANAGER: KIANNA YING M.D. [place] NUMBER [id number] [place]. [id number] HPV HIGH RISK WITH GENOTYPE, [id number] 00:00:00* Test Item Value Reference Range Interpretation Comme nts HPV HIGH RISK INTERP (test c ode = 66946) POSITIVE HPV 16 (test code = 33840) NEGATIVE HPV 18 (test code = 01342) NEGATIVE HPV, HR, OTHER GENOTYPES (te st code = 84954) POSITIVE PDFE (test code = PDFReport) PDF T[facility] Marques AustinHPV HIGH RISK WITH GENOTYPE, [id number] 00:00:00* Test Item Value Reference Range Interpretation Comme nts HPV HIGH RISK INTERP (test c ode = 90819) POSITIVE HPV 16 (test code = 12307) NEGATIVE HPV 18 (test code = 73117) NEGATIVE HPV, HR, OTHER GENOTYPES (te st code = 51054) POSITIVE PDFE (test code = PDFReport) PDF Tashi Marques AustinHPV HIGH RISK WITH GENOTYPE, [id number] 00:00:00* Test Item Value Reference Range Interpretation Comme nts HPV HIGH RISK INTERP (test c ode = 19530) POSITIVE HPV 16 (test code = 94612) NEGATIVE HPV 18 (test code = 83358) NEGATIVE HPV, HR, OTHER GENOTYPES (te st code = 03940) POSITIVE PDFE (test code = PDFReport) PDF Tashi Marques AustinHPV HIGH RISK WITH GENOTYPE, [id number] 00:00:00* Test Item Value Reference Range Interpretation Comme nts HPV HIGH RISK INTERP (test c ode = 96416) POSITIVE HPV 16 (test code = 14608) NEGATIVE HPV 18 (test code = 07473) NEGATIVE HPV, HR, OTHER GENOTYPES (te st code = 20400) POSITIVE PDFE (test code = PDFReport) PDF Tashi Marques AustinHPV HIGH RISK WITH GENOTYPE, [id number] 00:00:00* Test Item Value Reference Range Interpretation Comme nts HPV HIGH RISK INTERP (test c ode = 17992) POSITIVE HPV 16 (test code = 43912) NEGATIVE HPV 18 (test code = 95194) NEGATIVE HPV, HR, OTHER GENOTYPES (te st code = 26731) POSITIVE PDFE (test code = PDFReport) PDF Tashi Marques AustinHPV HIGH RISK WITH GENOTYPE, [id number] 00:00:00* Test Item Value Reference Range Interpretation Comme nts HPV HIGH RISK INTERP (test c ode = 77698) POSITIVE HPV 16 (test code = 69326) NEGATIVE HPV 18 (test code = 07091) NEGATIVE HPV, HR, OTHER GENOTYPES (te st code = 42943) POSITIVE PDFE (test code = PDFReport) SILVIO Marques AustinHPV HIGH RISK WITH GENOTYPE, [id number] 00:00:00* Test Item Value Reference Range Interpretation Comme nts HPV HIGH RISK INTERP (test c ode = 01914) POSITIVE HPV 16 (test code = 26970) NEGATIVE HPV 18 (test code = 33676) NEGATIVE HPV, HR, OTHER GENOTYPES (te st code = 95495) POSITIVE PDFE (test code = PDFReport) PDF Tashi Marques AustinHPV HIGH RISK WITH GENOTYPE, [id number] 00:00:00* Test Item Value Reference Range Interpretation Comme nts HPV HIGH RISK INTERP (test c ode = 26583) POSITIVE HPV 16 (test code = 61371) NEGATIVE HPV 18 (test code = 76514) NEGATIVE HPV, HR, OTHER GENOTYPES (te st code = 63163) POSITIVE PDFE (test code = PDFReport) PDF Tashi Marques AustinHPV HIGH RISK WITH GENOTYPE, [id number] 00:00:00* Test Item Value Reference Range Interpretation Comme nts HPV HIGH RISK INTERP (test c ode = 63237) POSITIVE HPV 16 (test code = 01104) NEGATIVE HPV 18 (test code = 11980) NEGATIVE HPV, HR, OTHER GENOTYPES (te st code = 93335) POSITIVE PDFE (test code = PDFReport) PDF Tashi Marques AustinCT/NG, NAAT, [id number] 15:02:34* Test Item Value Reference Range Interpretation Comme nts CHLAMYDIA, NAAT, URINE (test code = 57217) NEGATIVE NEGATIVE Testing is perfo rmed with Man[employer]reet AURA 6800/8800 systems usingreal-time polymerase chain reaction (PCR) method. A negative result does not exclude low level infection, specimensampling error, or collection error. GONORRHEA, NAAT, URINE (test code = 17715) NEGATIVE NEGATIVE Testing is perfo rmed with [employer] AURA 6800/8800 systems usingreal-time polymerase chain reaction (PCR) method. A negative result does not exclude low level infection, specimensampling error, or collection error. CT/NG, TMA, [id number] 00:00:00* Test Item Value Reference Range Interpretation Comme nts CHLAMYDIA, NAAT, URINE (test code = 86853) NEGATIVE GONORRHEA, NAAT, URINE (test code = 20906) NEGATIVE Tashi Marques AustinCT/NG, TMA, [id number] 00:00:00* Test Item Value Reference Range Interpretation Comme nts CHLAMYDIA, NAAT, URINE (test code = 69291) NEGATIVE GONORRHEA, NAAT, URINE (test code = 11626) NEGATIVE Tashi Marques AustinCT/NG, TMA, [id number] 00:00:00* Test Item Value Reference Range Interpretation Comme nts CHLAMYDIA, NAAT, URINE (test code = 48020) NEGATIVE GONORRHEA, NAAT, URINE (test code = 73603) NEGATIVE Tashi Marques AustinCT/NG, TMA, [id number] 00:00:00* Test Item Value Reference Range Interpretation Comme nts CHLAMYDIA, NAAT, URINE (test code = 25062) NEGATIVE GONORRHEA, NAAT, URINE (test code = 20507) NEGATIVE Tashi Marques AustinCT/NG, TMA, [id number] 00:00:00* Test Item Value Reference Range Interpretation Comme nts CHLAMYDIA, NAAT, URINE (test code = 54500) NEGATIVE GONORRHEA, NAAT, URINE (test code = 12238) NEGATIVE Tashi F AustinCT/NG, TMA, [id number] 00:00:00* Test Item Value Reference Range Interpretation Comme nts CHLAMYDIA, NAAT, URINE (test code = 83775) NEGATIVE GONORRHEA, NAAT, URINE (test code = 05271) NEGATIVE Tashi Marques AustinCT/NG, TMA, [id number] 00:00:00* Test Item Value Reference Range Interpretation Comme nts CHLAMYDIA, NAAT, URINE (test code = 52339) NEGATIVE GONORRHEA, NAAT, URINE (test code = 76566) NEGATIVE Tashi F AustinCT/NG, TMA, [id number] 00:00:00* Test Item Value Reference Range Interpretation Comme nts CHLAMYDIA, NAAT, URINE (test code = 98880) NEGATIVE GONORRHEA, NAAT, URINE (test code = 60903) NEGATIVE Tashi Marques AustinCT/NG, TMA, [id number] 00:00:00* Test Item Value Reference Range Interpretation Comme nts CHLAMYDIA, NAAT, URINE (test code = 89441) NEGATIVE GONORRHEA, NAAT, URINE (test code = 49494) NEGATIVE Tashi BoothCULTURE, [id number] 09:55:42SPECIMEN NUMBER: [id number] CULTURE, URINE SPECIMEN NUMBER: [id number] SPECIMEN COMMENT: URINE SOURCE: URINE REPORT STATUS: FINAL FINAL REPORT: 02/24/2023 NO GROWTH AFTER 36 HOURS INCUBATIONCULTURE, [id number] 00:00:00* Test Item Value Reference Range Interpretation Comme nts CULTURE, URINE (test code = 75105) SPECIMEN NUMBER: [id number] Tashi BoothCULTURE, [id number] 00:00:00* Test Item Value Reference Range Interpretation Comme nts CULTURE, URINE (test code = 81257) SPECIMEN NUMBER: [id number] Tashi Rivero, [id number] 00:00:00* Test Item Value Reference Range Interpretation Comme nts CULTURE, URINE (test code = 91749) SPECIMEN NUMBER: [id number] Tashi Rivero [id number] 00:00:00* Test Item Value Reference Range Interpretation Comme nts CULTURE, URINE (test code = 08387) SPECIMEN NUMBER: [id number] Tashi Rivero, [id number] 00:00:00* Test Item Value Reference Range Interpretation Comme nts CULTURE, URINE (test code = 51896) SPECIMEN NUMBER: [id number] Tashi Rivero, [id number] 00:00:00* Test Item Value Reference Range Interpretation Comme nts CULTURE, URINE (test code = 07980) SPECIMEN NUMBER: [id number] Tashi Rivero, [id number] 00:00:00* Test Item Value Reference Range Interpretation Comme nts CULTURE, URINE (test code = 94711) SPECIMEN NUMBER: [id number] Tashi Rivero, [id number] 00:00:00* Test Item Value Reference Range Interpretation Comme nts CULTURE, URINE (test code = 01174) SPECIMEN NUMBER: [id number] Tashi Rivero [id number] 00:00:00* Test Item Value Reference Range Interpretation Comme nts CULTURE, URINE (test code = 36870) SPECIMEN NUMBER: [id number] Tashi BoothVAGINAL PATHOGENS DNA [id number] 14:16:00* Test Item Value Reference Range Interpretation Comme nts GERMAN SPECIES (test code = 59365) NEGATIVE NEGATIVE G. VAGINALIS (test code = 82860) NEGATIVE NEGATIVE T. VAGINALIS (test code = 28669) NEGATIVE NEGATIVE Note: The [facility] VPIII Microbial Identification Testis a DNA probe test intended for use in the detectionand identification of German species, Gardnerellavaginalis and Trichomonas vaginalis nucleic acid. UNLESS OTHERWISE INDICATED, ALL TESTING PERFORMED AT [facility] [address] [place] [id number] LICENSED CLUB MANAGER: KIANNA YING M.D. [place] NUMBER [id number] [place] [id number] HEPATITIS PANEL, [id number] 06:11:27* Test Item Value Reference Range Interpretation Comme nts HEPATITIS A IgM (test code = 56504) NON-REACTIVE NON-REACTIVE HEPATITIS B CORE IgM (test code = 4644) NON-REACTIVE NON-REACTIVE HEPATITIS B SURF AG (test code = 2739) NON-REACTIVE NON-REACTIVE HEPATITIS C ANTIBODY (test code = 4675) NON-REACTIVE NON-REACTIVE INTERPRETATION HEPATITIS A: (test code = 2552) (NOTE) Hepatitis A serology shows no evidence of acute hepatitis A. INTERPRETATION HEPATITIS B: (test code = 87484) (NOTE) Hepatitis B serology shows no evidence of acute hepatitis B andno indication of exposure to hepatitis B virus in the previous tereza eight months. INTERPRETATION HEPATITIS C: (test code = 28093) (NOTE) Hepatitis C serology shows no evidence of exposure to hepatitisC virus at this time. It can take up to 12 months after exposure tothe hepatitis C virus for antibodies to become detectable in the blood in certain patients. HIV 1/2 4TH GEN, RFLX [id number] 06:11:27* Test Item Value Reference Range Interpretation Comme nts HIV 1/2 4TH GEN, RFLX CONF ( test code = 3514) NON-REACTIVE NON-REACTIVE [id number] 04:56:06* Test Item Value Reference Range Interpretation Comme nts RPR RESULT (test code = 3501) NON-REACTIVE NON-REACTIVE RPR TITER (test code = 3500) NOT INDIC. TITER NOT INDIC. [id number] 00:00:00* Test Item Value Reference Range Interpretation Comme nts RPR RESULT (test code = 3501) NON-REACTIVE RPR TITER (test code = 3500) NOT INDIC. TITER Tashi F AustinHIV 1/2 4TH GEN, RFLX [id number] 00:00:00* Test Item Value Reference Range Interpretation Comme nts HIV 1/2 4TH GEN, RFLX CONF ( test code = 3514) NON-REACTIVE Tashi F AustinVAGINAL PATHOGENS DNA [id number] 00:00:00* Test Item Value Reference Range Interpretation Comme nts GERMAN SPECIES (test code = ) NEGATIVE G. VAGINALIS (test code = 80296) NEGATIVE T. VAGINALIS (test code = 75615) NEGATIVE Tashi BoothACUTE HEPATITIS [id number] 00:00:00* Test Item Value Reference Range Interpretation Comme nts HEPATITIS A IgM (test code = 56799) NON-REACTIVE HEPATITIS B CORE IgM (test c ode = 4644) NON-REACTIVE HEPATITIS B SURF AG (test co de = 2739) NON-REACTIVE HEPATITIS C ANTIBODY (test c ode = 4675) NON-REACTIVE INTERPRETATION HEPATITIS A: (test code = 2552) (NOTE) INTERPRETATION HEPATITIS B: (test code = 71177) (NOTE) INTERPRETATION HEPATITIS C: (test code = 95436) (NOTE) Tashi [id number] 00:00:00* Test Item Value Reference Range Interpretation Comme nts RPR RESULT (test code = 3501) NON-REACTIVE RPR TITER (test code = 3500) NOT INDIC. TITER Tashi BoothHIV 1/2 4TH GEN, RFLX [id number] 00:00:00* Test Item Value Reference Range Interpretation Comme nts HIV 1/2 4TH GEN, RFLX CONF ( test code = 3514) NON-REACTIVE Tashi BoohtVAGINAL PATHOGENS DNA [id number] 00:00:00* Test Item Value Reference Range Interpretation Comme nts GERMAN SPECIES (test code = ) NEGATIVE G. VAGINALIS (test code = 42877) NEGATIVE T. VAGINALIS (test code = 12259) NEGATIVE Tashi BoothACUTE HEPATITIS [id number] 00:00:00* Test Item Value Reference Range Interpretation Comme nts HEPATITIS A IgM (test code = 51283) NON-REACTIVE HEPATITIS B CORE IgM (test c ode = 4644) NON-REACTIVE HEPATITIS B SURF AG (test co de = 2739) NON-REACTIVE HEPATITIS C ANTIBODY (test c ode = 4675) NON-REACTIVE INTERPRETATION HEPATITIS A: (test code = 2552) (NOTE) INTERPRETATION HEPATITIS B: (test code = 80302) (NOTE) INTERPRETATION HEPATITIS C: (test code = 27102) (NOTE) Tashi Marques [id number] 00:00:00* Test Item Value Reference Range Interpretation Comme nts RPR RESULT (test code = 3501) NON-REACTIVE RPR TITER (test code = 3500) NOT INDIC. TITER Tashi BoothHIV 1/2 4TH GEN, RFLX [id number] 00:00:00* Test Item Value Reference Range Interpretation Comme nts HIV 1/2 4TH GEN, RFLX CONF ( test code = 3514) NON-REACTIVE Tashi Marques AustinVAGINAL PATHOGENS DNA [id number] 00:00:00* Test Item Value Reference Range Interpretation Comme nts GERMAN SPECIES (test code = ) NEGATIVE G. VAGINALIS (test code = 97472) NEGATIVE T. VAGINALIS (test code = 67558) NEGATIVE Tashi BoothACUTE HEPATITIS [id number] 00:00:00* Test Item Value Reference Range Interpretation Comme nts HEPATITIS A IgM (test code = 87365) NON-REACTIVE HEPATITIS B CORE IgM (test c ode = 4644) NON-REACTIVE HEPATITIS B SURF AG (test co de = 2739) NON-REACTIVE HEPATITIS C ANTIBODY (test c ode = 4675) NON-REACTIVE INTERPRETATION HEPATITIS A: (test code = 2552) (NOTE) INTERPRETATION HEPATITIS B: (test code = 64490) (NOTE) INTERPRETATION HEPATITIS C: (test code = 76494) (NOTE) Tashi [id number] 00:00:00* Test Item Value Reference Range Interpretation Comme nts RPR RESULT (test code = 3501) NON-REACTIVE RPR TITER (test code = 3500) NOT INDIC. TITER Tashi BoothHIV 1/2 4TH GEN, RFLX [id number] 00:00:00* Test Item Value Reference Range Interpretation Comme nts HIV 1/2 4TH GEN, RFLX CONF ( test code = 3514) NON-REACTIVE Tashi Marques AustinVAGINAL PATHOGENS DNA [id number] 00:00:00* Test Item Value Reference Range Interpretation Comme nts GERMAN SPECIES (test code = ) NEGATIVE G. VAGINALIS (test code = 76884) NEGATIVE T. VAGINALIS (test code = 07116) NEGATIVE Tashi BoothACUTE HEPATITIS [id number] 00:00:00* Test Item Value Reference Range Interpretation Comme nts HEPATITIS A IgM (test code = 48145) NON-REACTIVE HEPATITIS B CORE IgM (test c ode = 4644) NON-REACTIVE HEPATITIS B SURF AG (test co de = 2739) NON-REACTIVE HEPATITIS C ANTIBODY (test c ode = 4675) NON-REACTIVE INTERPRETATION HEPATITIS A: (test code = 2552) (NOTE) INTERPRETATION HEPATITIS B: (test code = 26750) (NOTE) INTERPRETATION HEPATITIS C: (test code = 48016) (NOTE) Tashi [id number] 00:00:00* Test Item Value Reference Range Interpretation Comme nts RPR RESULT (test code = 3501) NON-REACTIVE RPR TITER (test code = 3500) NOT INDIC. TITER Tashi BoothHIV 1/2 4TH GEN, RFLX [id number] 00:00:00* Test Item Value Reference Range Interpretation Comme nts HIV 1/2 4TH GEN, RFLX CONF ( test code = 3514) NON-REACTIVE Tashi Marques AustinVAGINAL PATHOGENS DNA [id number] 00:00:00* Test Item Value Reference Range Interpretation Comme nts GERMAN SPECIES (test code = 42703) NEGATIVE G. VAGINALIS (test code = 73090) NEGATIVE T. VAGINALIS (test code = 70190) NEGATIVE Tashi BoothACUTE HEPATITIS [id number] 00:00:00* Test Item Value Reference Range Interpretation Comme nts HEPATITIS A IgM (test code = 07589) NON-REACTIVE HEPATITIS B CORE IgM (test c ode = 4644) NON-REACTIVE HEPATITIS B SURF AG (test co de = 2739) NON-REACTIVE HEPATITIS C ANTIBODY (test c ode = 4675) NON-REACTIVE INTERPRETATION HEPATITIS A: (test code = 2552) (NOTE) INTERPRETATION HEPATITIS B: (test code = 37208) (NOTE) INTERPRETATION HEPATITIS C: (test code = 95376) (NOTE) Tashi [id number] 00:00:00* Test Item Value Reference Range Interpretation Comme nts RPR RESULT (test code = 3501) NON-REACTIVE RPR TITER (test code = 3500) NOT INDIC. TITER Tashi BoothHIV 1/2 4TH GEN, RFLX [id number] 00:00:00* Test Item Value Reference Range Interpretation Comme nts HIV 1/2 4TH GEN, RFLX CONF ( test code = 3514) NON-REACTIVE Tashi Marques AustinVAGINAL PATHOGENS DNA [id number] 00:00:00* Test Item Value Reference Range Interpretation Comme nts GERMAN SPECIES (test code = ) NEGATIVE G. VAGINALIS (test code = 89852) NEGATIVE T. VAGINALIS (test code = 12252) NEGATIVE Tashi BoothACUTE HEPATITIS [id number] 00:00:00* Test Item Value Reference Range Interpretation Comme nts HEPATITIS A IgM (test code = 24798) NON-REACTIVE HEPATITIS B CORE IgM (test c ode = 4644) NON-REACTIVE HEPATITIS B SURF AG (test co de = 2739) NON-REACTIVE HEPATITIS C ANTIBODY (test c ode = 4675) NON-REACTIVE INTERPRETATION HEPATITIS A: (test code = 2552) (NOTE) INTERPRETATION HEPATITIS B: (test code = 53156) (NOTE) INTERPRETATION HEPATITIS C: (test code = 71806) (NOTE) Tashi [id number] 00:00:00* Test Item Value Reference Range Interpretation Comme nts RPR RESULT (test code = 3501) NON-REACTIVE RPR TITER (test code = 3500) NOT INDIC. TITER Tashi BoothHIV 1/2 4TH GEN, RFLX [id number] 00:00:00* Test Item Value Reference Range Interpretation Comme nts HIV 1/2 4TH GEN, RFLX CONF ( test code = 3514) NON-REACTIVE Tashi BoothVAGINAL PATHOGENS DNA [id number] 00:00:00* Test Item Value Reference Range Interpretation Comme nts GERMAN SPECIES (test code = ) NEGATIVE G. VAGINALIS (test code = 74059) NEGATIVE T. VAGINALIS (test code = 70462) NEGATIVE Tashi BoothACUTE HEPATITIS [id number] 00:00:00* Test Item Value Reference Range Interpretation Comme nts HEPATITIS A IgM (test code = 29309) NON-REACTIVE HEPATITIS B CORE IgM (test c ode = 4644) NON-REACTIVE HEPATITIS B SURF AG (test co de = 2739) NON-REACTIVE HEPATITIS C ANTIBODY (test c ode = 4675) NON-REACTIVE INTERPRETATION HEPATITIS A: (test code = 2552) (NOTE) INTERPRETATION HEPATITIS B: (test code = 48775) (NOTE) INTERPRETATION HEPATITIS C: (test code = 34830) (NOTE) Tashi [id number] 00:00:00* Test Item Value Reference Range Interpretation Comme nts RPR RESULT (test code = 3501) NON-REACTIVE RPR TITER (test code = 3500) NOT INDIC. TITER Tashi BoothHIV 1/2 4TH GEN, RFLX [id number] 00:00:00* Test Item Value Reference Range Interpretation Comme nts HIV 1/2 4TH GEN, RFLX CONF ( test code = 3514) NON-REACTIVE Tashi Marques AustinVAGINAL PATHOGENS DNA [id number] 00:00:00* Test Item Value Reference Range Interpretation Comme nts GERMAN SPECIES (test code = ) NEGATIVE G. VAGINALIS (test code = 21467) NEGATIVE T. VAGINALIS (test code = 51110) NEGATIVE Tashi BoothACUTE HEPATITIS [id number] 00:00:00* Test Item Value Reference Range Interpretation Comme nts HEPATITIS A IgM (test code = 72791) NON-REACTIVE HEPATITIS B CORE IgM (test c ode = 4644) NON-REACTIVE HEPATITIS B SURF AG (test co de = 2739) NON-REACTIVE HEPATITIS C ANTIBODY (test c ode = 4675) NON-REACTIVE INTERPRETATION HEPATITIS A: (test code = 2552) (NOTE) INTERPRETATION HEPATITIS B: (test code = 04896) (NOTE) INTERPRETATION HEPATITIS C: (test code = 39149) (NOTE) Tashi [id number] 00:00:00* Test Item Value Reference Range Interpretation Comme nts RPR RESULT (test code = 3501) NON-REACTIVE RPR TITER (test code = 3500) NOT INDIC. TITER Tashi BoothHIV 1/2 4TH GEN, RFLX [id number] 00:00:00* Test Item Value Reference Range Interpretation Comme nts HIV 1/2 4TH GEN, RFLX CONF ( test code = 3514) NON-REACTIVE Tashi Marques AustinVAGINAL PATHOGENS DNA [id number] 00:00:00* Test Item Value Reference Range Interpretation Comme nts GERMAN SPECIES (test code = 86701) NEGATIVE G. VAGINALIS (test code = 24931) NEGATIVE T. VAGINALIS (test code = 06876) NEGATIVE Tashi BoothACUTE HEPATITIS [id number] 00:00:00* Test Item Value Reference Range Interpretation Comme nts HEPATITIS A IgM (test code = 97953) NON-REACTIVE HEPATITIS B CORE IgM (test c ode = 4644) NON-REACTIVE HEPATITIS B SURF AG (test co de = 2739) NON-REACTIVE HEPATITIS C ANTIBODY (test c ode = 4675) NON-REACTIVE INTERPRETATION HEPATITIS A: (test code = 2552) (NOTE) INTERPRETATION HEPATITIS B: (test code = 91409) (NOTE) INTERPRETATION HEPATITIS C: (test code = 54788) (NOTE) Tashi Rivero [id number] 13:34:12SPECIMEN NUMBER: [id number] CULTURE, URINE SPECIMEN NUMBER: [id number] SPECIMEN COMMENT: URINE SOURCE: URINE REPORT STATUS: FINAL FINAL REPORT: 01/27/2023 NO GROWTH AFTER 36 HOURS INCUBATION UNLESS OTHERWISE INDICATED, ALL TESTING PERFORMED AT [facility] [address] [place] [address] LICENSED CLUB MANAGER: KIANNA YING M.D. CLIA NUMBER [id number] [facility] [place].[id number] CULTURE, [id number] 00:00:00* Test Item Value Reference Range Interpretation Comme nts CULTURE, URINE (test code = 98568) SPECIMEN NUMBER: [id number] Tashi Rivero [id number] 00:00:00* Test Item Value Reference Range Interpretation Comme nts CULTURE, URINE (test code = 76672) SPECIMEN NUMBER: [id number] Tashi Rivero, [id number] 00:00:00* Test Item Value Reference Range Interpretation Comme nts CULTURE, URINE (test code = 68081) SPECIMEN NUMBER: [id number] Tashi Rivero [id number] 00:00:00* Test Item Value Reference Range Interpretation Comme nts CULTURE, URINE (test code = 41318) SPECIMEN NUMBER: [id number] Tashi Rivero, [id number] 00:00:00* Test Item Value Reference Range Interpretation Comme nts CULTURE, URINE (test code = 83052) SPECIMEN NUMBER: [id number] Tashi Rivero, [id number] 00:00:00* Test Item Value Reference Range Interpretation Comme nts CULTURE, URINE (test code = 59469) SPECIMEN NUMBER: [id number] Tashi Rivero, [id number] 00:00:00* Test Item Value Reference Range Interpretation Comme nts CULTURE, URINE (test code = 11488) SPECIMEN NUMBER: [id number] Tashi Rivero [id number] 00:00:00* Test Item Value Reference Range Interpretation Comme nts CULTURE, URINE (test code = 80949) SPECIMEN NUMBER: [id number] Tashi Rivero [id number] 00:00:00* Test Item Value Reference Range Interpretation Comme nts CULTURE, URINE (test code = 65128) SPECIMEN NUMBER: [id number] Tashi Rivero [id number] 10:30:50SPECIMEN NUMBER: [id number] CULTURE, URINE SPECIMEN NUMBER: [id number] SPECIMEN COMMENT: URINE SOURCE: URINE REPORT STATUS: FINAL FINAL REPORT: 01/13/2023 10-50,000 CFU/ML UROGENITAL DAHIANA PRESENT NO COMMON PATHOGENS UNLESS OTHERWISE INDICATED, ALL TESTING PERFORMED AT [facility] [address] [place] [address] LICENSED CLUB MANAGER: KIANNA YING M.D. CLIA NUMBER [id number] [place]. [id number], [id number] 00:00:00* Test Item Value Reference Range Interpretation Comme nts CULTURE, URINE (test code = 71013) SPECIMEN NUMBER: [id number] Tashi Rivero [id number] 00:00:00* Test Item Value Reference Range Interpretation Comme nts CULTURE, URINE (test code = 01544) SPECIMEN NUMBER: [id number] Tashi Rivero, [id number] 00:00:00* Test Item Value Reference Range Interpretation Comme nts CULTURE, URINE (test code = 10746) SPECIMEN NUMBER: [id number] Tashi Rivero, [id number] 00:00:00* Test Item Value Reference Range Interpretation Comme nts CULTURE, URINE (test code = 71104) SPECIMEN NUMBER: [id number] Tashi Rivero, [id number] 00:00:00* Test Item Value Reference Range Interpretation Comme nts CULTURE, URINE (test code = 92062) SPECIMEN NUMBER: [id number] Tashi AustinLTEDGAR, [id number] 00:00:00* Test Item Value Reference Range Interpretation Comme nts CULTURE, URINE (test code = 50933) SPECIMEN NUMBER: [id number] Tashi AustinLTEDGAR, [id number] 00:00:00* Test Item Value Reference Range Interpretation Comme nts CULTURE, URINE (test code = 42383) SPECIMEN NUMBER: [id number] Tashi Riveor, [id number] 00:00:00* Test Item Value Reference Range Interpretation Comme nts CULTURE, URINE (test code = 50813) SPECIMEN NUMBER: [id number] Tashi Rivero, [id number] 00:00:00* Test Item Value Reference Range Interpretation Comme nts CULTURE, URINE (test code = 30141) SPECIMEN NUMBER: [id number] Tashi Rivero [id number] 13:32:58SPECIMEN NUMBER: [id number] CULTURE, URINE SPECIMEN NUMBER: [id number] SPECIMEN COMMENT: URINE SOURCE: URINE REPORT STATUS: FINAL FINAL REPORT: 08/05/2022 <10,000 CFU/ML UROGENITAL DAHIANA PRESENT NO COMMON PATHOGENSCULTURE, [id number] 00:00:00* Test Item Value Reference Range Interpretation Comme nts CULTURE, URINE (test code = 83169) SPECIMEN NUMBER: [id number] Tashi Rivero, [id number] 00:00:00* Test Item Value Reference Range Interpretation Comme nts CULTURE, URINE (test code = 13642) SPECIMEN NUMBER: [id number] Tashi AustinLTEDGAR, [id number] 00:00:00* Test Item Value Reference Range Interpretation Comme nts CULTURE, URINE (test code = 43593) SPECIMEN NUMBER: [id number] Tashi AustinLTEDGAR, [id number] 00:00:00* Test Item Value Reference Range Interpretation Comme nts CULTURE, URINE (test code = 85277) SPECIMEN NUMBER: [id number] Tashi AustinLTEDGAR, [id number] 00:00:00* Test Item Value Reference Range Interpretation Comme nts CULTURE, URINE (test code = 21834) SPECIMEN NUMBER: [id number] Tashi AustinLTURE, [id number] 00:00:00* Test Item Value Reference Range Interpretation Comme nts CULTURE, URINE (test code = 68669) SPECIMEN NUMBER: [id number] Tashi Rivero, [id number] 00:00:00* Test Item Value Reference Range Interpretation Comme nts CULTURE, URINE (test code = 83225) SPECIMEN NUMBER: [id number] Tashi Rivero, [id number] 00:00:00* Test Item Value Reference Range Interpretation Comme nts CULTURE, URINE (test code = 83766) SPECIMEN NUMBER: [id number] Tashi Rivero, [id number] 00:00:00* Test Item Value Reference Range Interpretation Comme nts CULTURE, URINE (test code = 57249) SPECIMEN NUMBER: [id number] Tashi BoothVAGINAL PATHOGENS DNA [id number] 14:53:35* Test Item Value Reference Range Interpretation Comme nts GERMAN SPECIES (test code = ) NEGATIVE NEGATIVE G. VAGINALIS (test code = 73842) NEGATIVE NEGATIVE T. VAGINALIS (test code = 91338) NEGATIVE NEGATIVE Note: The [employer] [facility] VPIII Microbial Identification Testis a DNA probe test intended for use in the detectionand identification of German species, Gardnerellavaginalis and Trichomonas vaginalis nucleic acid. [facility] has important pathology staff changes effective 08/08/2022. New pathology staff will provide uninterrupted, excellent patient care and clinical consultation. See URL: [email or web address]. UNLESS OTHERWISE INDICATED, ALL TESTING PERFORMED AT [facility] [address] [place] [id number] LICENSED CLUB MANAGER: MAVIS SHAH M.D. CLIA NUMBER [id number] [place] [id number] VAGINAL PATHOGENS DNA [id number] 00:00:00* Test Item Value Reference Range Interpretation Comme nts GERMAN SPECIES (test code = 72706) NEGATIVE G. VAGINALIS (test code = 59020) NEGATIVE T. VAGINALIS (test code = 28868) NEGATIVE Tashi Marques AustinVAGINAL PATHOGENS DNA [id number] 00:00:00* Test Item Value Reference Range Interpretation Comme nts GERMAN SPECIES (test code = 88743) NEGATIVE G. VAGINALIS (test code = 67588) NEGATIVE T. VAGINALIS (test code = 70439) NEGATIVE Tashi Marques AustinVAGINAL PATHOGENS DNA [id number] 00:00:00* Test Item Value Reference Range Interpretation Comme nts GERMAN SPECIES (test code = 02523) NEGATIVE G. VAGINALIS (test code = 51104) NEGATIVE T. VAGINALIS (test code = 04984) NEGATIVE Tashi Marques AustinVAGINAL PATHOGENS DNA [id number] 00:00:00* Test Item Value Reference Range Interpretation Comme nts GERMAN SPECIES (test code = 87283) NEGATIVE G. VAGINALIS (test code = 35620) NEGATIVE T. VAGINALIS (test code = 87784) NEGATIVE Tashi Marques AustinVAGINAL PATHOGENS DNA [id number] 00:00:00* Test Item Value Reference Range Interpretation Comme nts GERMAN SPECIES (test code = 30964) NEGATIVE G. VAGINALIS (test code = 50823) NEGATIVE T. VAGINALIS (test code = 52333) NEGATIVE Tashi Marques AustinVAGINAL PATHOGENS DNA [id number] 00:00:00* Test Item Value Reference Range Interpretation Comme nts GERMAN SPECIES (test code = 24297) NEGATIVE G. VAGINALIS (test code = 97248) NEGATIVE T. VAGINALIS (test code = 31867) NEGATIVE Tashi Marques AustinVAGINAL PATHOGENS DNA [id number] 00:00:00* Test Item Value Reference Range Interpretation Comme nts GERMAN SPECIES (test code = 08739) NEGATIVE G. VAGINALIS (test code = 87345) NEGATIVE T. VAGINALIS (test code = 69890) NEGATIVE Tashi Marques AustinVAGINAL PATHOGENS DNA [id number] 00:00:00* Test Item Value Reference Range Interpretation Comme nts GERMAN SPECIES (test code = 30184) NEGATIVE G. VAGINALIS (test code = 30269) NEGATIVE T. VAGINALIS (test code = 07671) NEGATIVE Tashi Marques AustinVAGINAL PATHOGENS DNA [id number] 00:00:00* Test Item Value Reference Range Interpretation Comme nts GERMAN SPECIES (test code = 61258) NEGATIVE G. VAGINALIS (test code = 90860) NEGATIVE T. VAGINALIS (test code = 51918) NEGATIVE Tashi BoothISABELLELTEDGAR, [id number] 10:42:37SPECIMEN NUMBER: [id number] CULTURE, URINE SPECIMEN NUMBER: [id number] SPECIMEN COMMENT: URINE SOURCE: URINE REPORT STATUS: FINAL FINAL REPORT: 07/09/2022 <10,000 CFU/ML MIXED UROGENITAL DAHIANA UNLESS OTHERWISE INDICATED, ALL TESTING [facility]FOR[facility] [address] [place] [address] LICENSED CLUB MANAGER: MAVIS SHAH M.D. [place] NUMBER [id number] [facility]. [id number], [id number] 00:00:00* Test Item Value Reference Range Interpretation Comme nts CULTURE, URINE (test code = 36852) SPECIMEN NUMBER: [id number] Tashi AustinLTEDGAR, [id number] 00:00:00* Test Item Value Reference Range Interpretation Comme nts CULTURE, URINE (test code = 30464) SPECIMEN NUMBER: [id number] Tashi AustinLTEDGAR, [id number] 00:00:00* Test Item Value Reference Range Interpretation Comme nts CULTURE, URINE (test code = 03273) SPECIMEN NUMBER: [id number] Tashi AustinLTURE, [id number] 00:00:00* Test Item Value Reference Range Interpretation Comme nts CULTURE, URINE (test code = 33241) SPECIMEN NUMBER: [id number] Tashi AustinLTEDGAR, [id number] 00:00:00* Test Item Value Reference Range Interpretation Comme nts CULTURE, URINE (test code = 15562) SPECIMEN NUMBER: [id number] Tashi AustinLTEDGAR, [id number] 00:00:00* Test Item Value Reference Range Interpretation Comme nts CULTURE, URINE (test code = 83919) SPECIMEN NUMBER: [id number] Tashi AustinLTURE, [id number] 00:00:00* Test Item Value Reference Range Interpretation Comme nts CULTURE, URINE (test code = 74384) SPECIMEN NUMBER: [id number] Tashi AustinLTEDGAR, [id number] 00:00:00* Test Item Value Reference Range Interpretation Comme nts CULTURE, URINE (test code = 79843) SPECIMEN NUMBER: [id number] Tashi F AustinCULTURE, [id number] 00:00:00* Test Item Value Reference Range Interpretation Comme nts CULTURE, URINE (test code = 97399) SPECIMEN NUMBER: [id number] Tashi BoothSCR MAMM BILATERAL BILLY CAD [id number] 09:33:06 Name: Maribell : 1980 Sex: F - SCR MAMM BILATERAL BILLY CAD DIGITALBILATERAL FIRST EVER DIGITAL SCREENING MAMMOGRAM 3D/2D WITH CAD: 06/29/2022LINICAL: Asymptomatic. Digital breast tomosynthesis was performed in addition to routine CC and MLO views. Current mammographic images were evaluated by [employer] CAD (computer-aided detection) software. No prior exams were available for comparison. There are scattered fibroglandular tissues in both breasts. No suspicious mass, architectural distortion, malignant type calcification, or lymph node abnormality detected. IMPRESSION: BENIGNThere is no mammographic evidence of malignancy. Resume annual screening mammography in one year. (06/30/2023) Bernice hay/penrad:07/05/2022 09:33:06 Entry: lt - 07/05/2022 11:04:39Imaging Technologist: Evelina HARRINGTON, [facility]- FWletter sent: BIRADS 1-2 Normal Mammogram BI-RADS: 2 BenignCULTURE, URINE 2022-06-23 12:26:26SPECIMEN NUMBER: [id number] CULTURE, URINE SPECIMEN NUMBER: [id number] SPECIMEN COMMENT: URINE SOURCE: URINE REPORT STATUS: [...] MCG/ML. UNLESS OTHERWISE INDICATED, ALL TESTING PERFORMED [facility] [address] [place] [address] LICENSED CLUB MANAGER: MAVIS SHAH M.D. [place] NUMBER [id number] [place]. [id number], [id number] 00:00:00* Test Item Value Reference Range Interpretation Comme nts CULTURE, URINE (test code = 88598) SPECIMEN NUMBER: [id number] NASREEN Smith2023-01-14 00:00:00* Test Item Value Reference Range Interpretation Comme nts CULTURE, URINE (test code = 76696) SPECIMEN NUMBER: [id number] NASREEN Smith2023-01-14 00:00:00* Test Item Value Reference Range Interpretation Comme nts CULTURE, URINE (test code = 08781) SPECIMEN NUMBER: [id number] NASREEN Smith2023-01-14 00:00:00* Test Item Value Reference Range Interpretation Comme nts CULTURE, URINE (test code = 91427) SPECIMEN NUMBER: [id number] NASREEN Smith2023-01-14 00:00:00* Test Item Value Reference Range Interpretation Comme nts CULTURE, URINE (test code = 18004) SPECIMEN NUMBER: [id number] NASREEN Smith2023-01-14 00:00:00* Test Item Value Reference Range Interpretation Comme nts CULTURE, URINE (test code = 03063) SPECIMEN NUMBER: [id number] NASREEN Smith2023-01-14 00:00:00* Test Item Value Reference Range Interpretation Comme nts CULTURE, URINE (test code = 27476) SPECIMEN NUMBER: [id number] Tashi Rivero, [id number] 00:00:00* Test Item Value Reference Range Interpretation Comme nts CULTURE, URINE (test code = 12050) SPECIMEN NUMBER: [id number] Tashi Rivero, [id number] 00:00:00* Test Item Value Reference Range Interpretation Comme nts CULTURE, URINE (test code = 85756) SPECIMEN NUMBER: [id number] Tashi BoothCOMPREHENSIVE METABOLIC [id number] 00:00:00* Test Item Value Reference Range Interpretation Comme nts GLUCOSE (test code = 2217) 89 MG/DL BUN (test code = 2208) 10 MG/DL CREATININE (test code = 2214) 0.96 MG/DL eGFR (2020 CKD-EPI) (test co de = 88515) 77 ML/MIN/1.73 CALC BUN/CREAT (test code = [...] (test code = 2219) 16 U/L HEMOGLOBIN [id number] 00:00:00* Test Item Value Reference Range Interpretation Comme nts HEMOGLOBIN A1c (test code = 60157) 5.4 % LIPID [id number] 00:00:00* Test Item Value Reference Range Interpretation Comme nts CHOLESTEROL (test code = 2210) 194 MG/DL TRIGLYCERIDES (test code = 2232) 325 MG/DL HDL CHOLESTEROL (test code = 2220) 49 MG/DL CALC LDL CHOL (test code = 2237) 102 MG/DL RISK RATIO LDL/HDL (test cod e = 2238) 2.08 RATIO Tashi BoothLIPID [id number] 00:00:00* Test Item Value Reference Range Interpretation Comme nts CHOLESTEROL (test code = 2210) 194 MG/DL TRIGLYCERIDES (test code = 2232) 325 MG/DL HDL CHOLESTEROL (test code = 2220) 49 MG/DL CALC LDL CHOL (test code = 2237) 102 MG/DL RISK RATIO LDL/HDL (test cod e = 2238) 2.08 RATIO VITAMIN D, 25 [id number] 00:00:00* Test Item Value Reference Range Interpretation Comme nts VITAMIN D, 25 OH (test code = 4958) 24 NG/ML VITAMIN D, 25 [id number] 00:00:00* Test Item Value Reference Range Interpretation Comme nts VITAMIN D, 25 OH (test code = 4958) 24 NG/ML Tashi BoothCBC W/AUTO [id number] 00:00:00* Test Item Value Reference Range Interpretation [...] ABS NUCLEATED RBCS (test cod e = 12326) 0.00 K/UL CBC W/AUTO [id number] 00:00:00* Test Item Value Reference Range Interpretation [...] ABS NUCLEATED RBCS (test cod e = 23691) 0.00 K/UL Tashi F AustinCOMPREHENSIVE METABOLIC [id number] 00:00:00* Test Item Value Reference Range Interpretation Comme nts GLUCOSE (test code = 2217) 89 MG/DL BUN (test code = 2208) 10 MG/DL CREATININE (test code = 2214) 0.96 MG/DL eGFR (2020 CKD-EPI) (test co de = 36889) 77 ML/MIN/1.73 CALC BUN/CREAT (test code = [...] 2204) 78 U/L AST (test code = 221) 18 U/L ALT (test code = 2219) 16 U/L HEMOGLOBIN [id number] 00:00:00* Test Item Value Reference Range Interpretation Comme nts HEMOGLOBIN A1c (test code = 67423) 5.4 % LIPID [id number] 00:00:00* Test Item Value Reference Range Interpretation Comme nts CHOLESTEROL (test code = 2210) 194 MG/DL TRIGLYCERIDES (test code = 2232) 325 MG/DL HDL CHOLESTEROL (test code = 2220) 49 MG/DL CALC LDL CHOL (test code = 2237) 102 MG/DL RISK RATIO LDL/HDL (test cod e = 2238) 2.08 RATIO VITAMIN D, 25 [id number] 00:00:00* Test Item Value Reference Range Interpretation Comme nts VITAMIN D, 25 OH (test code = 4958) 24 NG/ML COMPREHENSIVE METABOLIC [id number] 00:00:00* Test Item Value Reference Range Interpretation Comme nts GLUCOSE (test code = 2217) 89 MG/DL BUN (test code = 2208) 10 MG/DL CREATININE (test code = 2214) 0.96 MG/DL eGFR (2020 CKD-EPI) (test co de = 00448) 77 ML/MIN/1.73 CALC BUN/CREAT (test code = [...] code = 2219) 16 U/L Tashi BoothHEMOGLOBIN [id number] 00:00:00* Test Item Value Reference Range Interpretation Comme sreekanth HEMOGLOBIN A1c (test code = 74058) 5.4 % Tashi BoothLIPID [id number] 00:00:00* Test Item Value Reference Range Interpretation Comme nts CHOLESTEROL (test code = 2210) 194 MG/DL TRIGLYCERIDES (test code = 2232) 325 MG/DL HDL CHOLESTEROL (test code = 2220) 49 MG/DL CALC LDL CHOL (test code = 2237) 102 MG/DL RISK RATIO LDL/HDL (test cod e = 2238) 2.08 RATIO Tashi BoothVITAMIN D, 25 [id number] 00:00:00* Test Item Value Reference Range Interpretation Comme [facility] VITAMIN D, 25 OH (test code = 4958) 24 NG/ML Tashi BoothCBC W/AUTO [id number] 00:00:00* Test Item Value Reference Range Interpretation Comme [facility] WBC (test code = 1001) 7.2 K/UL [...] ABS NUCLEATED RBCS (test cod e = 31090) 0.00 K/UL Tashi BoothCOMPREHENSIVE METABOLIC [id number] 00:00:00* Test Item Value Reference Range Interpretation Comme nts GLUCOSE (test code = 2217) 89 MG/DL BUN (test code = 2208) 10 MG/DL CREATININE (test code = 2214) 0.96 MG/DL eGFR (2020 CKD-EPI) (test co de = 47575) 77 ML/MIN/1.73 CALC BUN/CREAT (test code = [...] code = 2219) 16 U/L Tashi BoothHEMOGLOBIN [id number] 00:00:00* Test Item Value Reference Range Interpretation Comme nts HEMOGLOBIN A1c (test code = 88255) 5.4 % Tashi BoothLIPID [id number] 00:00:00* Test Item Value Reference Range Interpretation Comme nts CHOLESTEROL (test code = 2210) 194 MG/DL TRIGLYCERIDES (test code = 2232) 325 MG/DL HDL CHOLESTEROL (test code = 2220) 49 MG/DL CALC LDL CHOL (test code = 2237) 102 MG/DL RISK RATIO LDL/HDL (test cod e = 2238) 2.08 RATIO Tashi BoothVITAMIN D, 25 [id number] 00:00:00* Test Item Value Reference Range Interpretation Comme sreekanth VITAMIN D, 25 OH (test code = 4958) 24 NG/ML Tashi BoothCBC W/AUTO [id number] 00:00:00* Test Item Value Reference Range Interpretation [...] ABS NUCLEATED RBCS (test cod e = 71105) 0.00 K/UL Tashi BoothCOMPREHENSIVE METABOLIC [id number] 00:00:00* Test Item Value Reference Range Interpretation Comme nts GLUCOSE (test code = 2217) 89 MG/DL BUN (test code = 2208) 10 MG/DL CREATININE (test code = 2214) 0.96 MG/DL eGFR (2020 CKD-EPI) (test co de = 62043) 77 ML/MIN/1.73 CALC BUN/CREAT (test code = [...] code = 2219) 16 U/L Tashi BoothHEMOGLOBIN [id number] 00:00:00* Test Item Value Reference Range Interpretation Comme nts HEMOGLOBIN A1c (test code = 27051) 5.4 % Tashi BoothLIPID [id number] 00:00:00* Test Item Value Reference Range Interpretation Comme nts CHOLESTEROL (test code = 2210) 194 MG/DL TRIGLYCERIDES (test code = 2232) 325 MG/DL HDL CHOLESTEROL (test code = 2220) 49 MG/DL CALC LDL CHOL (test code = 2237) 102 MG/DL RISK RATIO LDL/HDL (test cod e = 2238) 2.08 RATIO Tashi BoothVITAMIN D, 25 [id number] 00:00:00* Test Item Value Reference Range Interpretation Comme nts VITAMIN D, 25 OH (test code = 4958) 24 NG/ML Tashi BoothCBC W/AUTO [id number] 00:00:00* Test Item Value Reference Range Interpretation [...] ABS NUCLEATED RBCS (test cod e = 34224) 0.00 K/UL Tashi F AustinCOMPREHENSIVE METABOLIC [id number] 00:00:00* Test Item Value Reference Range Interpretation Comme nts GLUCOSE (test code = 2217) 89 MG/DL BUN (test code = 2208) 10 MG/DL CREATININE (test code = 2214) 0.96 MG/DL eGFR (2020 CKD-EPI) (test co de = 59860) 77 ML/MIN/1.73 CALC BUN/CREAT (test code = [...] code = 2219) 16 U/L Tashi BoothHEMOGLOBIN [id number] 00:00:00* Test Item Value Reference Range Interpretation Comme sreekanth HEMOGLOBIN A1c (test code = 51932) 5.4 % Tashi BoothLIPID [id number] 00:00:00* Test Item Value Reference Range Interpretation Comme nts CHOLESTEROL (test code = 2210) 194 MG/DL TRIGLYCERIDES (test code = 2232) 325 MG/DL HDL CHOLESTEROL (test code = 2220) 49 MG/DL CALC LDL CHOL (test code = 2237) 102 MG/DL RISK RATIO LDL/HDL (test cod e = 2238) 2.08 RATIO Tashi BoothVITAMIN D, 25 [id number] 00:00:00* Test Item Value Reference Range Interpretation Comme [facility] VITAMIN D, 25 OH (test code = 4958) 24 NG/ML Tashi BoothCBC W/AUTO [id number] 00:00:00* Test Item Value Reference Range Interpretation [...] ABS NUCLEATED RBCS (test cod e = 20905) 0.00 K/UL Tashi F LeobardoCOMPREHENSIVE METABOLIC [id number] 00:00:00* Test Item Value Reference Range Interpretation Comme nts GLUCOSE (test code = 2217) 89 MG/DL BUN (test code = 2208) 10 MG/DL CREATININE (test code = 2214) 0.96 MG/DL eGFR (2020 CKD-EPI) (test co de = 90240) 77 ML/MIN/1.73 CALC BUN/CREAT (test code = [...] (test code = 2219) 16 U/L Tashi Marques LeobardoHEMOGLOBIN [id number] 00:00:00* Test Item Value Reference Range Interpretation Comme nts HEMOGLOBIN A1c (test code = 74650) 5.4 % Tashi F LeobardoLIPID [id number] 00:00:00* Test Item Value Reference Range Interpretation Comme nts CHOLESTEROL (test code = 2210) 194 MG/DL TRIGLYCERIDES (test code = 2232) 325 MG/DL HDL CHOLESTEROL (test code = 2220) 49 MG/DL CALC LDL CHOL (test code = 2237) 102 MG/DL RISK RATIO LDL/HDL (test cod e = 2238) 2.08 RATIO Tashi BoothVITAMIN D, 25 [id number] 00:00:00* Test Item Value Reference Range Interpretation Comme nts VITAMIN D, 25 OH (test code = 4958) 24 NG/ML Tashi BoothCBC W/AUTO [id number] 00:00:00* Test Item Value Reference Range Interpretation [...] ABS NUCLEATED RBCS (test cod e = 95655) 0.00 K/UL Tashi BoothCOMPREHENSIVE METABOLIC [id number] 00:00:00* Test Item Value Reference Range Interpretation Comme nts GLUCOSE (test code = 2217) 89 MG/DL BUN (test code = 2208) 10 MG/DL CREATININE (test code = 2214) 0.96 MG/DL eGFR (2020 CKD-EPI) (test co de = 57542) 77 ML/MIN/1.73 CALC BUN/CREAT (test code = [...] code = 2219) 16 U/L Tashi BoothHEMOGLOBIN [id number] 00:00:00* Test Item Value Reference Range Interpretation Comme [facility] HEMOGLOBIN A1c (test code = 90172) 5.4 % Tashi BoothLIPID [id number] 00:00:00* Test Item Value Reference Range Interpretation Comme nts CHOLESTEROL (test code = 2210) 194 MG/DL TRIGLYCERIDES (test code = 2232) 325 MG/DL HDL CHOLESTEROL (test code = 2220) 49 MG/DL CALC LDL CHOL (test code = 2237) 102 MG/DL RISK RATIO LDL/HDL (test cod e = 2238) 2.08 RATIO Tashi BoothVITAMIN D, 25 [id number] 00:00:00* Test Item Value Reference Range Interpretation Comme nts VITAMIN D, 25 OH (test code = 4958) 24 NG/ML Tashi BoothCBC W/AUTO [id number] 00:00:00* Test Item Value Reference Range Interpretation [...] ABS NUCLEATED RBCS (test cod e = 29982) 0.00 K/UL Tashi F AustinCOMPREHENSIVE METABOLIC [id number] 00:00:00* Test Item Value Reference Range Interpretation Comme nts GLUCOSE (test code = 2217) 89 MG/DL BUN (test code = 2208) 10 MG/DL CREATININE (test code = 2214) 0.96 MG/DL eGFR (2020 CKD-EPI) (test co de = 60467) 77 ML/MIN/1.73 CALC BUN/CREAT (test code = [...] code = 2219) 16 U/L Tashi BoothHEMOGLOBIN [id number] 00:00:00* Test Item Value Reference Range Interpretation Comme sreekanth HEMOGLOBIN A1c (test code = 60883) 5.4 % Tashi BoothLIPID [id number] 00:00:00* Test Item Value Reference Range Interpretation Comme nts CHOLESTEROL (test code = 2210) 194 MG/DL TRIGLYCERIDES (test code = 2232) 325 MG/DL HDL CHOLESTEROL (test code = 2220) 49 MG/DL CALC LDL CHOL (test code = 2237) 102 MG/DL RISK RATIO LDL/HDL (test cod e = 2238) 2.08 RATIO Tashi BoothVITAMIN D, 25 [id number] 00:00:00* Test Item Value Reference Range Interpretation Comme [facility] VITAMIN D, 25 OH (test code = 4958) 24 NG/ML Tashi BoothCBC W/AUTO [id number] 00:00:00* Test Item Value Reference Range Interpretation Comme [facility] WBC (test code = 1001) 7.2 K/UL [...] ABS NUCLEATED RBCS (test cod e = 37411) 0.00 K/UL Tashi BoothCOMPREHENSIVE METABOLIC [id number] 00:00:00* Test Item Value Reference Range Interpretation Comme nts GLUCOSE (test code = 2217) 89 MG/DL BUN (test code = 2208) 10 MG/DL CREATININE (test code = 2214) 0.96 MG/DL eGFR (2020 CKD-EPI) (test co de = 60799) 77 ML/MIN/1.73 CALC BUN/CREAT (test code = [...] code = 2219) 16 U/L Tashi BoothHEMOGLOBIN [id number] 00:00:00* Test Item Value Reference Range Interpretation Comme nts HEMOGLOBIN A1c (test code = 23811) 5.4 % Tashi BoothLIPID [id number] 00:00:00* Test Item Value Reference Range Interpretation Comme nts CHOLESTEROL (test code = 2210) 194 MG/DL TRIGLYCERIDES (test code = 2232) 325 MG/DL HDL CHOLESTEROL (test code = 2220) 49 MG/DL CALC LDL CHOL (test code = 2237) 102 MG/DL RISK RATIO LDL/HDL (test cod e = 2238) 2.08 RATIO Tashi BoothVITAMIN D, 25 [id number] 00:00:00* Test Item Value Reference Range Interpretation Comme nts VITAMIN D, 25 OH (test code = 4958) 24 NG/ML Tashi BoothCBC W/AUTO [id number] 00:00:00* Test Item Value Reference Range Interpretation [...] ABS NUCLEATED RBCS (test cod e = 63415) 0.00 K/UL Tashi BoothCBC W/AUTO [id number] 00:00:00* Test Item Value Reference Range Interpretation [...] ABS NUCLEATED RBCS (test cod e = 31940) 0.00 K/UL COMPREHENSIVE METABOLIC [id number] 00:00:00* Test Item Value Reference Range Interpretation Comme nts GLUCOSE (test code = 2217) 89 MG/DL BUN (test code = 2208) 10 MG/DL CREATININE (test code = 2214) 0.96 MG/DL eGFR (2020 CKD-EPI) (test co de = 25708) 77 ML/MIN/1.73 CALC BUN/CREAT (test code = [...] code = 2219) 16 U/L Tashi BoothHEMOGLOBIN [id number] 00:00:00* Test Item Value Reference Range Interpretation Comme nts HEMOGLOBIN A1c (test code = 97264) 5.4 % Tashi Rivero, [id number] 09:51:37SPECIMEN NUMBER: [id number] CULTURE, URINE SPECIMEN NUMBER: [id number] SPECIMEN COMMENT: URINE SOURCE: URINE REPORT STATUS: FINAL FINAL REPORT: 03/03/2022 10-50,000 CFU/ML MIXED UROGENITAL DAHIANA UNLESSOTHERWISE INDICATED, ALL TESTING PERFORMED [facility] [address] [place] [address] LICENSED CLUB MANAGER: MAVIS SHAH M.D. CLIA NUMBER [id number] [place]. [id number], [id number] 00:00:00* Test Item Value Reference Range Interpretation Comme nts CULTURE, URINE (test code = 45991) SPECIMEN NUMBER: [id number] CULTURE, [id number] 00:00:00* Test Item Value Reference Range Interpretation Comme nts CULTURE, URINE (test code = 41673) SPECIMEN NUMBER: [id number] Tashi AustinLTURE, [id number] 00:00:00* Test Item Value Reference Range Interpretation Comme nts CULTURE, URINE (test code = 62464) SPECIMEN NUMBER: [id number] Tashi AustinLTURE, [id number] 00:00:00* Test Item Value Reference Range Interpretation Comme nts CULTURE, URINE (test code = 67412) SPECIMEN NUMBER: [id number] Tashi AustinLTEDGAR, [id number] 00:00:00* Test Item Value Reference Range Interpretation Comme nts CULTURE, URINE (test code = 09728) SPECIMEN NUMBER: [id number] Tashi Rivero, [id number] 00:00:00* Test Item Value Reference Range Interpretation Comme nts CULTURE, URINE (test code = 46329) SPECIMEN NUMBER: [id number] Tashi Rivero [id number] 00:00:00* Test Item Value Reference Range Interpretation Comme nts CULTURE, URINE (test code = 23836) SPECIMEN NUMBER: [id number] Tashi Rivero [id number] 00:00:00* Test Item Value Reference Range Interpretation Comme nts CULTURE, URINE (test code = 98484) SPECIMEN NUMBER: [id number] Tashi Rivero [id number] 00:00:00* Test Item Value Reference Range Interpretation Comme nts CULTURE, URINE (test code = 97963) SPECIMEN NUMBER: [id number] Tashi Rivero [id number] 00:00:00* Test Item Value Reference Range Interpretation Comme nts CULTURE, URINE (test code = 64578) SPECIMEN NUMBER: [id number] HERMELINDO, [id number] 00:00:00* Test Item Value Reference Range Interpretation Comme nts CULTURE, URINE (test code = 04757) SPECIMEN NUMBER: [id number] Tashi Rivero [id number] 00:00:00* Test Item Value Reference Range Interpretation Comme nts CULTURE, URINE (test code = 73693) SPECIMEN NUMBER: [id number] HERMELINDO [id number] 11:07:11SPECIMEN NUMBER: [id number] CULTURE, URINE SPECIMEN NUMBER: [id number] SPECIMEN COMMENT: URINE SOURCE: URINE REPORT STATUS: FINAL FINAL REPORT: 08/18/2021 10-50,000 CFU/ML UROGENITAL DAHIANA PRESENT NO CO MMON PATHOGENS UNLESS OTHERWISE INDICATED, ALL TESTING PERFOR[facility] [address] [place] [address] [employer]IC[employer]ED [employer]UB MANAGER: MAVIS SHAH M.D. CLIA NUMBER [id number] [place]. [id number] CULTURE, [id number] 00:00:00* Test Item Value Reference Range Interpretation Comme nts CULTURE, URINE (test code = 97706) SPECIMEN NUMBER: [id number] CULTURE, [id number] 00:00:00* Test Item Value Reference Range Interpretation Comme nts CULTURE, URINE (test code = 51648) SPECIMEN NUMBER: [id number] Tashi Rivero, [id number] 00:00:00* Test Item Value Reference Range Interpretation Comme nts CULTURE, URINE (test code = 62623) SPECIMEN NUMBER: [id number] CULTURE, [id number] 00:00:00* Test Item Value Reference Range Interpretation Comme nts CULTURE, URINE (test code = 94732) SPECIMEN NUMBER: [id number] Tashi AustinLTEDGAR, [id number] 00:00:00* Test Item Value Reference Range Interpretation Comme nts CULTURE, URINE (test code = 98438) SPECIMEN NUMBER: [id number] Tashi Rivero, [id number] 00:00:00* Test Item Value Reference Range Interpretation Comme nts CULTURE, URINE (test code = 59640) SPECIMEN NUMBER: [id number] Tashi Rivero, [id number] 00:00:00* Test Item Value Reference Range Interpretation Comme nts CULTURE, URINE (test code = 56579) SPECIMEN NUMBER: [id number] Tashi AustinLTEDGAR, [id number] 00:00:00* Test Item Value Reference Range Interpretation Comme nts CULTURE, URINE (test code = 21917) SPECIMEN NUMBER: [id number] Tashi Rivero, [id number] 00:00:00* Test Item Value Reference Range Interpretation Comme nts CULTURE, URINE (test code = 31424) SPECIMEN NUMBER: [id number] Tashi Rivero, [id number] 00:00:00* Test Item Value Reference Range Interpretation Comme nts CULTURE, URINE (test code = 62299) SPECIMEN NUMBER: [id number] CULTURE, [id number] 00:00:00* Test Item Value Reference Range Interpretation Comme nts CULTURE, URINE (test code = 25064) SPECIMEN NUMBER: [id number] Tashi AustinLTEDGAR, [id number] 00:00:00* Test Item Value Reference Range Interpretation Comme nts CULTURE, URINE (test code = 35683) SPECIMEN NUMBER: [id number] CULTURE, [id number] 00:00:00* Test Item Value Reference Range Interpretation Comme nts CULTURE, URINE (test code = 76441) SPECIMEN NUMBER: [id number] CULTURE, [id number] 00:00:00* Test Item Value Reference Range Interpretation Comme nts CULTURE, URINE (test code = 27904) SPECIMEN NUMBER: [id number] Tashi Rivero, [id number] 00:00:00* Test Item Value Reference Range Interpretation Comme nts CULTURE, URINE (test code = 86996) SPECIMEN NUMBER: [id number] HERMELINDO, [id number] 00:00:00* Test Item Value Reference Range Interpretation Comme nts CULTURE, URINE (test code = 00194) SPECIMEN NUMBER: [id number] Tashi Rivero, [id number] 00:00:00* Test Item Value Reference Range Interpretation Comme nts CULTURE, URINE (test code = 24376) SPECIMEN NUMBER: [id number] Tashi Rivero, [id number] 00:00:00* Test Item Value Reference Range Interpretation Comme nts CULTURE, URINE (test code = 60209) SPECIMEN NUMBER: [id number] Tashi AustinLTEDGAR, [id number] 00:00:00* Test Item Value Reference Range Interpretation Comme nts CULTURE, URINE (test code = 51637) SPECIMEN NUMBER: [id number] Tashi Rivero, [id number] 00:00:00* Test Item Value Reference Range Interpretation Comme nts CULTURE, URINE (test code = 13023) SPECIMEN NUMBER: [id number] Tashi AustinLTEDGAR, [id number] 00:00:00* Test Item Value Reference Range Interpretation Comme nts CULTURE, URINE (test code = 67656) SPECIMEN NUMBER: [id number] Tashi AustinLTEDGAR, [id number] 00:00:00* Test Item Value Reference Range Interpretation Comme nts CULTURE, URINE (test code = 81708) SPECIMEN NUMBER: [id number] Tashi Rivero, [id number] 00:00:00* Test Item Value Reference Range Interpretation Comme nts CULTURE, URINE (test code = 25241) SPECIMEN NUMBER: [id number] CULTURE, [id number] 00:00:00* Test Item Value Reference Range Interpretation Comme nts CULTURE, URINE (test code = 79830) SPECIMEN NUMBER: [id number] CULTURE, [id number] 00:00:00* Test Item Value Reference Range Interpretation Comme nts CULTURE, URINE (test code = 73937) SPECIMEN NUMBER: [id number] Tashi AustinLTEDGAR, [id number] 00:00:00* Test Item Value Reference Range Interpretation Comme nts CULTURE, URINE (test code = 93208) SPECIMEN NUMBER: [id number] CULTURE, [id number] 00:00:00* Test Item Value Reference Range Interpretation Comme nts CULTURE, URINE (test code = 76051) SPECIMEN NUMBER: [id number] Tashi AustinLTEDGAR, [id number] 00:00:00* Test Item Value Reference Range Interpretation Comme nts CULTURE, URINE (test code = 50667) SPECIMEN NUMBER: [id number] CULTURE, [id number] 00:00:00* Test Item Value Reference Range Interpretation Comme nts CULTURE, URINE (test code = 94204) SPECIMEN NUMBER: [id number] CULTURE, [id number] 00:00:00* Test Item Value Reference Range Interpretation Comme nts CULTURE, URINE (test code = 73936) SPECIMEN NUMBER: [id number] Tashi AustinLTEDGAR, [id number] 00:00:00* Test Item Value Reference Range Interpretation Comme nts CULTURE, URINE (test code = 79715) SPECIMEN NUMBER: [id number] CULTURE, [id number] 00:00:00* Test Item Value Reference Range Interpretation Comme nts CULTURE, URINE (test code = 80212) SPECIMEN NUMBER: [id number] Tashi AustinLTEDGAR, [id number] 00:00:00* Test Item Value Reference Range Interpretation Comme nts CULTURE, URINE (test code = 72079) SPECIMEN NUMBER: [id number] Tashi AustinLTEDGAR, [id number] 00:00:00* Test Item Value Reference Range Interpretation Comme nts CULTURE, URINE (test code = 85064) SPECIMEN NUMBER: [id number] Tashi AustinLTEDGAR, [id number] 00:00:00* Test Item Value Reference Range Interpretation Comme nts CULTURE, URINE (test code = 02284) SPECIMEN NUMBER: [id number] Tashi Rivero, [id number] 00:00:00* Test Item Value Reference Range Interpretation Comme nts CULTURE, URINE (test code = 26513) SPECIMEN NUMBER: [id number] Tashi AustinLTEDGAR, [id number] 00:00:00* Test Item Value Reference Range Interpretation Comme nts CULTURE, URINE (test code = 56544) SPECIMEN NUMBER: [id number] Tashi AustinLTEDGAR, [id number] 00:00:00* Test Item Value Reference Range Interpretation Comme nts CULTURE, URINE (test code = 00708) SPECIMEN NUMBER: [id number] Tashi Rivero [id number] 00:00:00* Test Item Value Reference Range Interpretation Comme nts CULTURE, URINE (test code = 99081) SPECIMEN NUMBER: [id number] CULTURE, [id number] 00:00:00* Test Item Value Reference Range Interpretation Comme nts CULTURE, URINE (test code = 55795) SPECIMEN NUMBER: [id number] CULTURE, [id number] 00:00:00* Test Item Value Reference Range Interpretation Comme nts CULTURE, URINE (test code = 35690) SPECIMEN NUMBER: [id number] Tashi Rivero, [id number] 00:00:00* Test Item Value Reference Range Interpretation Comme nts CULTURE, URINE (test code = 31659) SPECIMEN NUMBER: [id number] CULTURE, [id number] 00:00:00* Test Item Value Reference Range Interpretation Comme nts CULTURE, URINE (test code = 53622) SPECIMEN NUMBER: [id number] CULTURE, [id number] 00:00:00* Test Item Value Reference Range Interpretation Comme nts CULTURE, URINE (test code = 40547) SPECIMEN NUMBER: [id number] Tashi AustinLTEDGAR, [id number] 00:00:00* Test Item Value Reference Range Interpretation Comme nts CULTURE, URINE (test code = 08176) SPECIMEN NUMBER: [id number] CULTURE, [id number] 00:00:00* Test Item Value Reference Range Interpretation Comme nts CULTURE, URINE (test code = 55182) SPECIMEN NUMBER: [id number] Tashi AustinLTEDGAR, [id number] 00:00:00* Test Item Value Reference Range Interpretation Comme nts CULTURE, URINE (test code = 63651) SPECIMEN NUMBER: [id number] Tashi AustinLTEDGAR, [id number] 00:00:00* Test Item Value Reference Range Interpretation Comme nts CULTURE, URINE (test code = 54308) SPECIMEN NUMBER: [id number] Tashi AustinLTEDGAR, [id number] 00:00:00* Test Item Value Reference Range Interpretation Comme nts CULTURE, URINE (test code = 85719) SPECIMEN NUMBER: [id number] Tashi AustinLTEDAGR, [id number] 00:00:00* Test Item Value Reference Range Interpretation Comme nts CULTURE, URINE (test code = 42036) SPECIMEN NUMBER: [id number] Tashi AustinLTEDGAR, [id number] 00:00:00* Test Item Value Reference Range Interpretation Comme nts CULTURE, URINE (test code = 96690) SPECIMEN NUMBER: [id number] Tashi AustinLTEDGAR, [id number] 00:00:00* Test Item Value Reference Range Interpretation Comme nts CULTURE, URINE (test code = 18436) SPECIMEN NUMBER: [id number] CULTURE, [id number] 00:00:00* Test Item Value Reference Range Interpretation Comme nts CULTURE, URINE (test code = 97235) SPECIMEN NUMBER: [id number] Tashi AustinLTEDGAR, [id number] 00:00:00* Test Item Value Reference Range Interpretation Comme nts CULTURE, URINE (test code = 33177) SPECIMEN NUMBER: [id number] CULTURE, [id number] 00:00:00* Test Item Value Reference Range Interpretation Comme nts CULTURE, URINE (test code = 71016) SPECIMEN NUMBER: [id number] Tashi AustinLTURE, [id number] 00:00:00* Test Item Value Reference Range Interpretation Comme nts CULTURE, URINE (test code = 81342) SPECIMEN NUMBER: [id number] CULTURE, URINE [ADDED]2019-08-23 00:00:00* Test Item Value Reference Range Interpretation Comme nts CULTURE, URINE (test code = 08832) SPECIMEN NUMBER: [id number] CULTURE, URINE [ADDED]2019-08-23 00:00:00* Test Item Value Reference Range Interpretation Comme nts CULTURE, URINE (test code = 35486) SPECIMEN NUMBER: [id number] Tashi Marques AustinCULTURE, URINE [ADDED]2019-08-23 00:00:00* Test Item Value Reference Range Interpretation Comme nts CULTURE, URINE (test code = 15291) SPECIMEN NUMBER: [id number] Tashi Marques AustinCULTURE, URINE [ADDED]2019-08-23 00:00:00* Test Item Value Reference Range Interpretation Comme nts CULTURE, URINE (test code = 22207) SPECIMEN NUMBER: [id number] Tashi Marques AustinCULTURE, URINE [ADDED]2019-08-23 00:00:00* Test Item Value Reference Range Interpretation Comme nts CULTURE, URINE (test code = 06847) SPECIMEN NUMBER: [id number] Tashi Marques AustinCULTURE, URINE [ADDED]2019-08-23 00:00:00* Test Item Value Reference Range Interpretation Comme nts CULTURE, URINE (test code = 88274) SPECIMEN NUMBER: [id number] Tashi Marques AustinCULTURE, URINE [ADDED]2019-08-23 00:00:00* Test Item Value Reference Range Interpretation Comme nts CULTURE, URINE (test code = 97761) SPECIMEN NUMBER: [id number] Tashi Marques AustinCULTURE, URINE [ADDED]2019-08-23 00:00:00* Test Item Value Reference Range Interpretation Comme nts CULTURE, URINE (test code = 70159) SPECIMEN NUMBER: [id number] Tashi Marques AustinCULTURE, URINE [ADDED]2019-08-23 00:00:00* Test Item Value Reference Range Interpretation Comme nts CULTURE, URINE (test code = 73175) SPECIMEN NUMBER: [id number] CULTURE, URINE [ADDED]2019-08-23 00:00:00* Test Item Value Reference Range Interpretation Comme nts CULTURE, URINE (test code = 59287) SPECIMEN NUMBER: [id number] CULTURE, URINE [ADDED]2019-08-23 00:00:00* Test Item Value Reference Range Interpretation Comme nts CULTURE, URINE (test code = 50927) SPECIMEN NUMBER: [id number] Tashi Marques AustinCULTURE, URINE [ADDED]2019-08-23 00:00:00* Test Item Value Reference Range Interpretation Comme nts CULTURE, URINE (test code = 31641) SPECIMEN NUMBER: [id number] CULTURE, URINE [ADDED]2019-08-23 00:00:00* Test Item Value Reference Range Interpretation Comme nts CULTURE, URINE (test code = 14500) SPECIMEN NUMBER: [id number] Tashi Marques AustinCULTURE, URINE [ADDED]2019-08-23 00:00:00* Test Item Value Reference Range Interpretation Comme nts CULTURE, URINE (test code = 71670) SPECIMEN NUMBER: [id number] VAGINAL PATHOGENS DNA [id number] 00:00:00* Test Item Value Reference Range Interpretation Comme nts GERMAN SPECIES (test code = ) NEGATIVE G. VAGINALIS (test code = 99425) NEGATIVE T. VAGINALIS (test code = 06427) NEGATIVE VAGINAL PATHOGENS DNA [id number] 00:00:00* Test Item Value Reference Range Interpretation Comme nts GERMAN SPECIES (test code = 60139) NEGATIVE G. VAGINALIS (test code = 14471) NEGATIVE T. VAGINALIS (test code = 95819) NEGATIVE Tashi F AustinVAGINAL PATHOGENS DNA [id number] 00:00:00* Test Item Value Reference Range Interpretation Comme nts GERMAN SPECIES (test code = 13638) NEGATIVE G. VAGINALIS (test code = 68280) NEGATIVE T. VAGINALIS (test code = 61840) NEGATIVE VAGINAL PATHOGENS DNA [id number] 00:00:00* Test Item Value Reference Range Interpretation Comme nts GERMAN SPECIES (test code = 17552) NEGATIVE G. VAGINALIS (test code = 71025) NEGATIVE T. VAGINALIS (test code = 53449) NEGATIVE Tashi F AustinVAGINAL PATHOGENS DNA [id number] 00:00:00* Test Item Value Reference Range Interpretation Comme nts GERMAN SPECIES (test code = 02583) NEGATIVE G. VAGINALIS (test code = 89095) NEGATIVE T. VAGINALIS (test code = 64214) NEGATIVE Tashi F AustinVAGINAL PATHOGENS DNA [id number] 00:00:00* Test Item Value Reference Range Interpretation Comme nts GERMAN SPECIES (test code = 86949) NEGATIVE G. VAGINALIS (test code = 07722) NEGATIVE T. VAGINALIS (test code = 40202) NEGATIVE Tashi F AustinVAGINAL PATHOGENS DNA [id number] 00:00:00* Test Item Value Reference Range Interpretation Comme nts GERMAN SPECIES (test code = 35146) NEGATIVE G. VAGINALIS (test code = 58921) NEGATIVE T. VAGINALIS (test code = 46314) NEGATIVE Tashi F AustinVAGINAL PATHOGENS DNA [id number] 00:00:00* Test Item Value Reference Range Interpretation Comme nts GERMAN SPECIES (test code = 41472) NEGATIVE G. VAGINALIS (test code = 38948) NEGATIVE T. VAGINALIS (test code = 33064) NEGATIVE Tashi F AustinVAGINAL PATHOGENS DNA [id number] 00:00:00* Test Item Value Reference Range Interpretation Comme nts GERMAN SPECIES (test code = 28197) NEGATIVE G. VAGINALIS (test code = 74379) NEGATIVE T. VAGINALIS (test code = 38544) NEGATIVE Tashi F AustinVAGINAL PATHOGENS DNA [id number] 00:00:00* Test Item Value Reference Range Interpretation Comme nts GERMAN SPECIES (test code = 84465) NEGATIVE G. VAGINALIS (test code = 86110) NEGATIVE T. VAGINALIS (test code = 04077) NEGATIVE VAGINAL PATHOGENS DNA [id number] 00:00:00* Test Item Value Reference Range Interpretation Comme nts GERMAN SPECIES (test code = 80937) NEGATIVE G. VAGINALIS (test code = 95623) NEGATIVE T. VAGINALIS (test code = 33613) NEGATIVE Tashi F AustinVAGINAL PATHOGENS DNA [id number] 00:00:00* Test Item Value Reference Range Interpretation Comme nts GERMAN SPECIES (test code = 10971) NEGATIVE G. VAGINALIS (test code = 32713) NEGATIVE T. VAGINALIS (test code = 25000) NEGATIVE VAGINAL PATHOGENS DNA [id number] 00:00:00* Test Item Value Reference Range Interpretation Comme nts GERMAN SPECIES (test code = 17020) NEGATIVE G. VAGINALIS (test code = 67894) NEGATIVE T. VAGINALIS (test code = 50972) NEGATIVE VAGINAL PATHOGENS DNA [id number] 00:00:00* Test Item Value Reference Range Interpretation Comme nts GERMAN SPECIES (test code = 75083) NEGATIVE G. VAGINALIS (test code = 27166) NEGATIVE T. VAGINALIS (test code = 68162) NEGATIVE Tashi Rivero, [id number] 00:00:00* Test Item Value Reference Range Interpretation Comme nts CULTURE, URINE (test code = 79326) SPECIMEN NUMBER: [id number] CULTURE, [id number] 00:00:00* Test Item Value Reference Range Interpretation Comme nts CULTURE, URINE (test code = 22804) SPECIMEN NUMBER: [id number] Tashi AustinLTEDGAR, [id number] 00:00:00* Test Item Value Reference Range Interpretation Comme nts CULTURE, URINE (test code = 56957) SPECIMEN NUMBER: [id number] CULTURE, [id number] 00:00:00* Test Item Value Reference Range Interpretation Comme nts CULTURE, URINE (test code = 24052) SPECIMEN NUMBER: [id number] Tashi AustinLTURE, [id number] 00:00:00* Test Item Value Reference Range Interpretation Comme nts CULTURE, URINE (test code = 72035) SPECIMEN NUMBER: [id number] Tashi AustinLTEDGAR, [id number] 00:00:00* Test Item Value Reference Range Interpretation Comme nts CULTURE, URINE (test code = 90770) SPECIMEN NUMBER: [id number] Tashi AustinLTEDGAR, [id number] 00:00:00* Test Item Value Reference Range Interpretation Comme nts CULTURE, URINE (test code = 27239) SPECIMEN NUMBER: [id number] Tashi BoothCULTEDGAR, [id number] 00:00:00* Test Item Value Reference Range Interpretation Comme nts CULTURE, URINE (test code = 52185) SPECIMEN NUMBER: [id number] Tashi AustinLTEDGAR, [id number] 00:00:00* Test Item Value Reference Range Interpretation Comme nts CULTURE, URINE (test code = 00734) SPECIMEN NUMBER: [id number] Tashi BoothCULTURE, [id number] 00:00:00* Test Item Value Reference Range Interpretation Comme nts CULTURE, URINE (test code = 52812) SPECIMEN NUMBER: [id number] CULTURE, [id number] 00:00:00* Test Item Value Reference Range Interpretation Comme nts CULTURE, URINE (test code = 10707) SPECIMEN NUMBER: [id number] Tashi Rivero, [id number] 00:00:00* Test Item Value Reference Range Interpretation Comme nts CULTURE, URINE (test code = 05417) SPECIMEN NUMBER: [id number] CULTURE, [id number] 00:00:00* Test Item Value Reference Range Interpretation Comme nts CULTURE, URINE (test code = 94362) SPECIMEN NUMBER: [id number] Tashi Rivero, [id number] 00:00:00* Test Item Value Reference Range Interpretation Comme nts CULTURE, URINE (test code = 62602) SPECIMEN NUMBER: [id number] CULTURE, [id number] 00:00:00* Test Item Value Reference Range Interpretation Comme nts CULTURE, URINE (test code = 32339) SPECIMEN NUMBER: [id number] CULTURE, [id number] 00:00:00* Test Item Value Reference Range Interpretation Comme nts CULTURE, URINE (test code = 18995) SPECIMEN NUMBER: [id number] Tashi AustinLTEDGAR, [id number] 00:00:00* Test Item Value Reference Range Interpretation Comme nts CULTURE, URINE (test code = 16211) SPECIMEN NUMBER: [id number] Tashi AustinLTEDGAR, [id number] 00:00:00* Test Item Value Reference Range Interpretation Comme nts CULTURE, URINE (test code = 78405) SPECIMEN NUMBER: [id number] Tashi AustinLTEDGAR, [id number] 00:00:00* Test Item Value Reference Range Interpretation Comme nts CULTURE, URINE (test code = 07894) SPECIMEN NUMBER: [id number] Tashi AustinLTEDGAR, [id number] 00:00:00* Test Item Value Reference Range Interpretation Comme nts CULTURE, URINE (test code = 56183) SPECIMEN NUMBER: [id number] Tashi AustinLTURE, [id number] 00:00:00* Test Item Value Reference Range Interpretation Comme nts CULTURE, URINE (test code = 78292) SPECIMEN NUMBER: [id number] Tashi Rivero [id number] 00:00:00* Test Item Value Reference Range Interpretation Comme nts CULTURE, URINE (test code = 70916) SPECIMEN NUMBER: [id number] Tashi Rivero [id number] 00:00:00* Test Item Value Reference Range Interpretation Comme nts CULTURE, URINE (test code = 38971) SPECIMEN NUMBER: [id number] CULTURE, [id number] 00:00:00* Test Item Value Reference Range Interpretation Comme nts CULTURE, URINE (test code = 33098) SPECIMEN NUMBER: [id number] CULTURE, [id number] 00:00:00* Test Item Value Reference Range Interpretation Comme nts CULTURE, URINE (test code = 83703) SPECIMEN NUMBER: [id number] Tashi Rivero [id number] 00:00:00* Test Item Value Reference Range Interpretation Comme nts CULTURE, URINE (test code = 69723) SPECIMEN NUMBER: [id number] CULTURE, [id number] 00:00:00* Test Item Value Reference Range Interpretation Comme nts CULTURE, URINE (test code = 83764) SPECIMEN NUMBER: [id number] Tashi Rivero [id number] 00:00:00* Test Item Value Reference Range Interpretation Comme nts CULTURE, URINE (test code = 04318) SPECIMEN NUMBER: [id number] CBC W/AUTO [id number] 00:00:00* Test Item Value Reference Range Interpretation [...] 1015) TEST NOT PERFORMED K/UL CBC W/AUTO [id number] 00:00:00* Test Item Value Reference Range Interpretation [...] 1015) TEST NOT PERFORMED K/UL CBC W/AUTO [id number] 00:00:00* Test Item Value Reference Range Interpretation [...] = 1015) TEST NOT PERFORMED K/UL Tashijennifer BoothCBC W/AUTO [id number] 00:00:00* Test Item Value Reference Range Interpretation [...] NOT PERFORMED K/UL Tashi F AustinCBC W/AUTO [id number] 00:00:00* Test Item Value Reference Range Interpretation [...] NOT PERFORMED K/UL Tashi F AustinCBC W/AUTO [id number] 00:00:00* Test Item Value Reference Range Interpretation [...] NOT PERFORMED K/UL Tashi F AustinCBC W/AUTO [id number] 00:00:00* Test Item Value Reference Range Interpretation [...] NOT PERFORMED K/UL Tashi F AustinCBC W/AUTO [id number] 00:00:00* Test Item Value Reference Range Interpretation [...] NOT PERFORMED K/UL Tashi F AustinCBC W/AUTO [id number] 00:00:00* Test Item Value Reference Range Interpretation [...] NOT PERFORMED K/UL Tashi F AustinCBC W/AUTO [id number] 00:00:00* Test Item Value Reference Range Interpretation [...] 1015) TEST NOT PERFORMED K/UL CBC W/AUTO [id number] 00:00:00* Test Item Value Reference Range Interpretation [...] 1015) TEST NOT PERFORMED K/UL CBC W/AUTO [id number] 00:00:00* Test Item Value Reference Range Interpretation [...] NOT PERFORMED K/UL Tashi F AustinCBC W/AUTO [id number] 00:00:00* Test Item Value Reference Range Interpretation [...] 1015) TEST NOT PERFORMED K/UL CBC W/AUTO [id number] 00:00:00* Test Item Value Reference Range Interpretation [...] = 1015) TEST NOT PERFORMED K/UL Tashi AustinLTEDGAR, [id number] 00:00:00* Test Item Value Reference Range Interpretation Comme nts CULTURE, URINE (test code = 44298) SPECIMEN NUMBER: [id number] CULTURE, [id number] 00:00:00* Test Item Value Reference Range Interpretation Comme nts CULTURE, URINE (test code = 50638) SPECIMEN NUMBER: [id number] Tashi BoothCULTURE, [id number] 00:00:00* Test Item Value Reference Range Interpretation Comme nts CULTURE, URINE (test code = 50410) SPECIMEN NUMBER: [id number] CULTURE, [id number] 00:00:00* Test Item Value Reference Range Interpretation Comme nts CULTURE, URINE (test code = 78039) SPECIMEN NUMBER: [id number] Tashi Rivero [id number] 00:00:00* Test Item Value Reference Range Interpretation Comme nts CULTURE, URINE (test code = 08876) SPECIMEN NUMBER: [id number] Tashi Rivero [id number] 00:00:00* Test Item Value Reference Range Interpretation Comme nts CULTURE, URINE (test code = 88575) SPECIMEN NUMBER: [id number] NASREEN Smith2018-10-18 00:00:00* Test Item Value Reference Range Interpretation Comme nts CULTURE, URINE (test code = 54062) SPECIMEN NUMBER: [id number] NASREEN Smith2018-10-18 00:00:00* Test Item Value Reference Range Interpretation Comme nts CULTURE, URINE (test code = 10917) SPECIMEN NUMBER: [id number] Tashi Rivero [id number] 00:00:00* Test Item Value Reference Range Interpretation Comme nts CULTURE, URINE (test code = 31960) SPECIMEN NUMBER: [id number] Tashi Rivero [id number] 00:00:00* Test Item Value Reference Range Interpretation Comme nts CULTURE, URINE (test code = 27325) SPECIMEN NUMBER: [id number] HERMELINDO [id number] 00:00:00* Test Item Value Reference Range Interpretation Comme nts CULTURE, URINE (test code = 28409) SPECIMEN NUMBER: [id number] Tashi Rivero [id number] 00:00:00* Test Item Value Reference Range Interpretation Comme nts CULTURE, URINE (test code = 52751) SPECIMEN NUMBER: [id number] CULTURE, [id number] 00:00:00* Test Item Value Reference Range Interpretation Comme nts CULTURE, URINE (test code = 26372) SPECIMEN NUMBER: [id number] CULTURE, [id number] 00:00:00* Test Item Value Reference Range Interpretation Comme nts CULTURE, URINE (test code = 83540) SPECIMEN NUMBER: [id number] Tashi [id number] 00:00:00* Test Item Value Reference Range Interpretation Comme nts TSH, THIRD GENERATION (test code = 2821) 1.150 UIU/ML Tashi BoothVITAMIN D, 25 [id number] 00:00:00* Test Item Value Reference Range Interpretation Comme nts VITAMIN D, 25 OH (test code = 4958) 18 NG/ML Tashi [id number] 00:00:00* Test Item Value Reference Range Interpretation Comme nts TSH, THIRD GENERATION (test code = 2821) 1.150 UIU/ML VITAMIN D, 25 [id number] 00:00:00* Test Item Value Reference Range Interpretation Comme nts VITAMIN D, 25 OH (test code = 4958) 18 NG/ML COMPREHENSIVE METABOLIC [id number] 00:00:00* Test Item Value Reference Range Interpretation Comme nts GLUCOSE (test code = 2217) 92 MG/DL BUN (test code = 2208) 6 MG/DL CREATININE (test code = 2214) 0.57 MG/DL eGFR AMER. (test cod e = 88716) 138 ML/MIN/1.73 eGFR NON- AMER. (test code = 28212) 119 ML/MIN/1.73 CALC BUN/CREAT (test code = [...] code = 2219) 18 U/L COMPREHENSIVE METABOLIC [id number] 00:00:00* Test Item Value Reference Range Interpretation Comme nts GLUCOSE (test code = 2217) 92 MG/DL BUN (test code = 2208) 6 MG/DL CREATININE (test code = 2214) 0.57 MG/DL eGFR AMER. (test cod e = 60334) 138 ML/MIN/1.73 eGFR NON- AMER. (test code = 95619) 119 ML/MIN/1.73 CALC BUN/CREAT (test code = [...] (test code = 2219) 18 U/L [facility]AUTO [id number] 00:00:00* Test Item Value Reference Range Interpretation [...] COUNT (test code = 1015) 314 K/UL [id number] 00:00:00* Test Item Value Reference Range Interpretation Comme nts TSH, THIRD GENERATION (test code = 2821) 1.150 UIU/ML VITAMIN D, 25 [id number] 00:00:00* Test Item Value Reference Range Interpretation Comme nts VITAMIN D, 25 OH (test code = 4958) 18 NG/ML CBC W/AUTO [id number] 00:00:00* Test Item Value Reference Range Interpretation [...] (test code = 1015) 314 K/UL Tashi [id number] 00:00:00* Test Item Value Reference Range Interpretation Comme [facility] TSH, THIRD GENERATION (test code = 2821) 1.150 UIU/ML Tashi BoothVITAMIN D, 25 [id number] 00:00:00* Test Item Value Reference Range Interpretation Comme [facility] VITAMIN D, 25 OH (test code = 4958) 18 NG/ML Tashi BoothCOMPREHENSIVE METABOLIC [id number] 00:00:00* Test Item Value Reference Range Interpretation Comme nts GLUCOSE (test code = 2217) 92 MG/DL BUN (test code = 2208) 6 MG/DL CREATININE (test code = 2214) 0.57 MG/DL eGFR AMER. (test cod e = 68826) 138 ML/MIN/1.73 eGFR NON- AMER. (test code = 07744) 119 ML/MIN/1.73 CALC BUN/CREAT (test code = [...] = 2219) 18 U/L Tashi BoothCBC W/AUTO [id number] 00:00:00* Test Item Value Reference Range Interpretation [...] (test code = 1015) 314 K/UL Tashi [id number] 00:00:00* Test Item Value Reference Range Interpretation Comme [facility] TSH, THIRD GENERATION (test code = 2821) 1.150 UIU/ML Tashi BoothVITAMIN D, 25 [id number] 00:00:00* Test Item Value Reference Range Interpretation Comme [facility] VITAMIN D, 25 OH (test code = 4958) 18 NG/ML Tashi Marques LeobardoCOMPREHENSIVE METABOLIC [id number] 00:00:00* Test Item Value Reference Range Interpretation Comme nts GLUCOSE (test code = 2217) 92 MG/DL BUN (test code = 2208) 6 MG/DL CREATININE (test code = 2214) 0.57 MG/DL eGFR AMER. (test cod e = 15769) 138 ML/MIN/1.73 eGFR NON- AMER. (test code = 61768) 119 ML/MIN/1.73 CALC BUN/CREAT (test code = [...] = 2219) 18 U/L Tashi BoothCBC W/AUTO [id number] 00:00:00* Test Item Value Reference Range Interpretation [...] (test code = 1015) 314 K/UL Tashi [id number] 00:00:00* Test Item Value Reference Range Interpretation Comme nts TSH, THIRD GENERATION (test code = 2821) 1.150 UIU/ML Tashi BoothVITAMIN D, 25 [id number] 00:00:00* Test Item Value Reference Range Interpretation Comme nts VITAMIN D, 25 OH (test code = 4958) 18 NG/ML Tashi BoothCOMPREHENSIVE METABOLIC [id number] 00:00:00* Test Item Value Reference Range Interpretation Comme nts GLUCOSE (test code = 2217) 92 MG/DL BUN (test code = 2208) 6 MG/DL CREATININE (test code = 2214) 0.57 MG/DL eGFR AMER. (test cod e = 52335) 138 ML/MIN/1.73 eGFR NON- AMER. (test code = 80438) 119 ML/MIN/1.73 CALC BUN/CREAT (test code = [...] = 2219) 18 U/L Tashi BoothCBC W/AUTO [id number] 00:00:00* Test Item Value Reference Range Interpretation [...] (test code = 1015) 314 K/UL Tashi [id number] 00:00:00* Test Item Value Reference Range Interpretation Comme nts TSH, THIRD GENERATION (test code = 2821) 1.150 UIU/ML Tashi BoothVITAMIN D, 25 [id number] 00:00:00* Test Item Value Reference Range Interpretation Comme nts VITAMIN D, 25 OH (test code = 4958) 18 NG/ML Tashi BoothCOMPREHENSIVE METABOLIC [id number] 00:00:00* Test Item Value Reference Range Interpretation Comme nts GLUCOSE (test code = 2217) 92 MG/DL BUN (test code = 2208) 6 MG/DL CREATININE (test code = 2214) 0.57 MG/DL eGFR AMER. (test cod e = 01995) 138 ML/MIN/1.73 eGFR NON- AMER. (test code = 54584) 119 ML/MIN/1.73 CALC BUN/CREAT (test code = [...] = 2219) 18 U/L Tashi BoothCBC W/AUTO [id number] 00:00:00* Test Item Value Reference Range Interpretation [...] (test code = 1015) 314 K/UL Tashi [id number] 00:00:00* Test Item Value Reference Range Interpretation Comme nts TSH, THIRD GENERATION (test code = 2821) 1.150 UIU/ML Tashi BoothVITAMIN D, 25 [id number] 00:00:00* Test Item Value Reference Range Interpretation Comme [facility] VITAMIN D, 25 OH (test code = 4958) 18 NG/ML Tashi BoothCOMPREHENSIVE METABOLIC [id number] 00:00:00* Test Item Value Reference Range Interpretation Comme nts GLUCOSE (test code = 2217) 92 MG/DL BUN (test code = 2208) 6 MG/DL CREATININE (test code = 2214) 0.57 MG/DL eGFR AMER. (test cod e = 51509) 138 ML/MIN/1.73 eGFR NON- AMER. (test code = 63462) 119 ML/MIN/1.73 CALC BUN/CREAT (test code = [...] = 2219) 18 U/L Tashi BoothCBC W/AUTO [id number] 00:00:00* Test Item Value Reference Range Interpretation [...] (test code = 1015) 314 K/UL Tashi [id number] 00:00:00* Test Item Value Reference Range Interpretation Comme [facility] TSH, THIRD GENERATION (test code = 2821) 1.150 UIU/ML Tashi BoothVITAMIN D, 25 [id number] 00:00:00* Test Item Value Reference Range Interpretation Comme [facility] VITAMIN D, 25 OH (test code = 4958) 18 NG/ML Tashi BoothCOMPREHENSIVE METABOLIC [id number] 00:00:00* Test Item Value Reference Range Interpretation Comme nts GLUCOSE (test code = 2217) 92 MG/DL BUN (test code = 2208) 6 MG/DL CREATININE (test code = 2214) 0.57 MG/DL eGFR AMER. (test cod e = 34947) 138 ML/MIN/1.73 eGFR NON- AMER. (test code = 60575) 119 ML/MIN/1.73 CALC BUN/CREAT (test code = [...] 2219) 18 U/L Tashi Marques LeobardoCBC W/AUTO [id number] 00:00:00* Test Item Value Reference Range Interpretation [...] 1015) 314 K/UL Tashi Marques LeobardoCOMPREHENSIVE METABOLIC [id number] 00:00:00* Test Item Value Reference Range Interpretation Comme nts GLUCOSE (test code = 2217) 92 MG/DL BUN (test code = 2208) 6 MG/DL CREATININE (test code = 2214) 0.57 MG/DL eGFR AMER. (test cod e = 75461) 138 ML/MIN/1.73 eGFR NON- AMER. (test code = 49663) 119 ML/MIN/1.73 CALC BUN/CREAT (test code = [...] code = 2219) 18 U/L CBC W/AUTO [id number] 00:00:00* Test Item Value Reference Range Interpretation Comme [facility] WBC (test code = 1001) 6.5 K/UL [...] COUNT (test code = 1015) 314 K/UL [id number] 00:00:00* Test Item Value Reference Range Interpretation Comme [facility] TSH, THIRD GENERATION (test code = 2821) 1.150 UIU/ML Tashi BoothVITAMIN D, 25 [id number] 00:00:00* Test Item Value Reference Range Interpretation Comme [facility] VITAMIN D, 25 OH (test code = 4958) 18 NG/ML Tashi Marques [id number] 00:00:00* Test Item Value Reference Range Interpretation Comme [facility] TSH, THIRD GENERATION (test code = 2821) 1.150 UIU/ML VITAMIN D, 25 [id number] 00:00:00* Test Item Value Reference Range Interpretation Comme nts VITAMIN D, 25 OH (test code = 4958) 18 NG/ML COMPREHENSIVE METABOLIC [id number] 00:00:00* Test Item Value Reference Range Interpretation Comme nts GLUCOSE (test code = 2217) 92 MG/DL BUN (test code = 2208) 6 MG/DL CREATININE (test code = 2214) 0.57 MG/DL eGFR AMER. (test cod e = 91818) 138 ML/MIN/1.73 eGFR NON- AMER. (test code = 14703) 119 ML/MIN/1.73 CALC BUN/CREAT (test code = [...] code = 2219) 18 U/L COMPREHENSIVE METABOLIC [id number] 00:00:00* Test Item Value Reference Range Interpretation Comme nts GLUCOSE (test code = 2217) 92 MG/DL BUN (test code = 2208) 6 MG/DL CREATININE (test code = 2214) 0.57 MG/DL eGFR AMER. (test cod e = 54277) 138 ML/MIN/1.73 eGFR NON- AMER. (test code = 01805) 119 ML/MIN/1.73 CALC BUN/CREAT (test code = [...] = 2219) 18 U/L Tashi BoothCBC W/AUTO [id number] 00:00:00* Test Item Value Reference Range Interpretation [...] COUNT (test code = 1015) 314 K/UL [id number] 00:00:00* Test Item Value Reference Range Interpretation Comme nts TSH, THIRD GENERATION (test code = 2821) 1.150 UIU/ML CBC W/AUTO [id number] 00:00:00* Test Item Value Reference Range Interpretation [...] (test code = 1015) 314 K/UL Tashi BoothVITAMIN D, 25 [id number] 00:00:00* Test Item Value Reference Range Interpretation Comme nts VITAMIN D, 25 OH (test code = 4958) 18 NG/ML [id number] 00:00:00* Test Item Value Reference Range Interpretation Comme nts TSH, THIRD GENERATION (test code = 2821) 1.150 UIU/ML Tashi BoothCOMPREHENSIVE METABOLIC [id number] 00:00:00* Test Item Value Reference Range Interpretation Comme nts GLUCOSE (test code = 2217) 92 MG/DL BUN (test code = 2208) 6 MG/DL CREATININE (test code = 2214) 0.57 MG/DL eGFR AMER. (test cod e = 82819) 138 ML/MIN/1.73 eGFR NON- AMER. (test code = 03989) 119 ML/MIN/1.73 CALC BUN/CREAT (test code = [...] ALT (test code = 2219) 18 U/L VITAMIN D, 25 [id number] 00:00:00* Test Item Value Reference Range Interpretation Comme nts VITAMIN D, 25 OH (test code = 4958) 18 NG/ML aTshi Marques [facility] W/AUTO [id number] 00:00:00* Test Item Value Reference Range Interpretation [...] code = 1015) 314 K/UL COMPREHENSIVE METABOLIC [id number] 00:00:00* Test Item Value Reference Range Interpretation Comme nts GLUCOSE (test code = 2217) 92 MG/DL BUN (test code = 2208) 6 MG/DL CREATININE (test code = 2214) 0.57 MG/DL eGFR AMER. (test cod e = 99435) 138 ML/MIN/1.73 eGFR NON- AMER. (test code = 48798) 119 ML/MIN/1.73 CALC BUN/CREAT (test code = [...] (test code = 2219) 18 U/L Tashi [id number] 00:00:00* Test Item Value Reference Range Interpretation Comme nts TSH, THIRD GENERATION (test code = 2821) 1.150 UIU/ML VITAMIN D, 25 [id number] 00:00:00* Test Item Value Reference Range Interpretation Comme nts VITAMIN D, 25 OH (test code = 4958) 18 NG/ML COMPREHENSIVE METABOLIC [id number] 00:00:00* Test Item Value Reference Range Interpretation Comme nts GLUCOSE (test code = 2217) 92 MG/DL BUN (test code = 2208) 6 MG/DL CREATININE (test code = 2214) 0.57 MG/DL eGFR AMER. (test cod e = 40798) 138 ML/MIN/1.73 eGFR NON- AMER. (test code = 85741) 119 ML/MIN/1.73 CALC BUN/CREAT (test code = [...] code = 2219) 18 U/L CBC W/AUTO [id number] 00:00:00* Test Item Value Reference Range Interpretation [...] (test code = 1015) 314 K/UL Tashi BoothC W/AUTO [id number] 00:00:00* Test Item Value Reference Range Interpretation [...] COUNT (test code = 1015) 314 K/UL CULTURE, [id number] 00:00:00* Test Item Value Reference Range Interpretation Comme nts CULTURE, URINE (test code = 55721) SPECIMEN NUMBER: [id number] CULTURE, [id number] 00:00:00* Test Item Value Reference Range Interpretation Comme nts CULTURE, URINE (test code = 65761) SPECIMEN NUMBER: [id number] CULTURE, [id number] 00:00:00* Test Item Value Reference Range Interpretation Comme nts CULTURE, URINE (test code = 56632) SPECIMEN NUMBER: [id number] Tashi BoothCULTURE, [id number] 00:00:00* Test Item Value Reference Range Interpretation Comme nts CULTURE, URINE (test code = 62456) SPECIMEN NUMBER: [id number] Tashi AustinLTURE, [id number] 00:00:00* Test Item Value Reference Range Interpretation Comme nts CULTURE, URINE (test code = 60315) SPECIMEN NUMBER: [id number] Tashi Rivero, [id number] 00:00:00* Test Item Value Reference Range Interpretation Comme nts CULTURE, URINE (test code = 64805) SPECIMEN NUMBER: [id number] Tashi Rivero, [id number] 00:00:00* Test Item Value Reference Range Interpretation Comme nts CULTURE, URINE (test code = 36009) SPECIMEN NUMBER: [id number] Tashi Rivero, [id number] 00:00:00* Test Item Value Reference Range Interpretation Comme nts CULTURE, URINE (test code = 69502) SPECIMEN NUMBER: [id number] Tashi Rivero, [id number] 00:00:00* Test Item Value Reference Range Interpretation Comme nts CULTURE, URINE (test code = 56517) SPECIMEN NUMBER: [id number] Tashi Rivero, [id number] 00:00:00* Test Item Value Reference Range Interpretation Comme nts CULTURE, URINE (test code = 79181) SPECIMEN NUMBER: [id number] CULTURE, [id number] 00:00:00* Test Item Value Reference Range Interpretation Comme nts CULTURE, URINE (test code = 14509) SPECIMEN NUMBER: [id number] CULTURE, [id number] 00:00:00* Test Item Value Reference Range Interpretation Comme nts CULTURE, URINE (test code = 85205) SPECIMEN NUMBER: [id number] Tashi Rivero, [id number] 00:00:00* Test Item Value Reference Range Interpretation Comme nts CULTURE, URINE (test code = 32803) SPECIMEN NUMBER: [id number] CULTURE, [id number] 00:00:00* Test Item Value Reference Range Interpretation Comme nts CULTURE, URINE (test code = 59659) SPECIMEN NUMBER: [id number] Tashi BoothVAGINAL PATHOGENS DNA [id number] 00:00:00* Test Item Value Reference Range Interpretation Comme nts GERMAN SPECIES (test code = 58979) NEGATIVE G. VAGINALIS (test code = 87842) NEGATIVE T. VAGINALIS (test code = 80536) NEGATIVE VAGINAL PATHOGENS DNA [id number] 00:00:00* Test Item Value Reference Range Interpretation Comme nts GERMAN SPECIES (test code = 19996) NEGATIVE G. VAGINALIS (test code = 03645) NEGATIVE T. VAGINALIS (test code = 45139) NEGATIVE Tashi F AustinVAGINAL PATHOGENS DNA [id number] 00:00:00* Test Item Value Reference Range Interpretation Comme nts GERMAN SPECIES (test code = 70370) NEGATIVE G. VAGINALIS (test code = 92510) NEGATIVE T. VAGINALIS (test code = 36150) NEGATIVE VAGINAL PATHOGENS DNA [id number] 00:00:00* Test Item Value Reference Range Interpretation Comme nts GERMAN SPECIES (test code = 22478) NEGATIVE G. VAGINALIS (test code = 72738) NEGATIVE T. VAGINALIS (test code = 25564) NEGATIVE Tashi F AustinVAGINAL PATHOGENS DNA [id number] 00:00:00* Test Item Value Reference Range Interpretation Comme nts GERMAN SPECIES (test code = ) NEGATIVE G. VAGINALIS (test code = 84617) NEGATIVE T. VAGINALIS (test code = 37944) NEGATIVE Tashi F AustinVAGINAL PATHOGENS DNA [id number] 00:00:00* Test Item Value Reference Range Interpretation Comme nts GERMAN SPECIES (test code = 29821) NEGATIVE G. VAGINALIS (test code = 80124) NEGATIVE T. VAGINALIS (test code = 32842) NEGATIVE Tashi F AustinVAGINAL PATHOGENS DNA [id number] 00:00:00* Test Item Value Reference Range Interpretation Comme nts GERMAN SPECIES (test code = 27934) NEGATIVE G. VAGINALIS (test code = 63036) NEGATIVE T. VAGINALIS (test code = 46295) NEGATIVE Tashi F AustinVAGINAL PATHOGENS DNA [id number] 00:00:00* Test Item Value Reference Range Interpretation Comme nts GERMAN SPECIES (test code = 33429) NEGATIVE G. VAGINALIS (test code = 27083) NEGATIVE T. VAGINALIS (test code = 89784) NEGATIVE Tashi F AustinVAGINAL PATHOGENS DNA [id number] 00:00:00* Test Item Value Reference Range Interpretation Comme nts GERMAN SPECIES (test code = 11192) NEGATIVE G. VAGINALIS (test code = 31529) NEGATIVE T. VAGINALIS (test code = 95746) NEGATIVE Tashi F AustinVAGINAL PATHOGENS DNA [id number] 00:00:00* Test Item Value Reference Range Interpretation Comme nts GERMAN SPECIES (test code = 61315) NEGATIVE G. VAGINALIS (test code = 77561) NEGATIVE T. VAGINALIS (test code = 02555) NEGATIVE VAGINAL PATHOGENS DNA [id number] 00:00:00* Test Item Value Reference Range Interpretation Comme nts GERMAN SPECIES (test code = 48862) NEGATIVE G. VAGINALIS (test code = 70879) NEGATIVE T. VAGINALIS (test code = 06023) NEGATIVE Tashi F AustinVAGINAL PATHOGENS DNA [id number] 00:00:00* Test Item Value Reference Range Interpretation Comme nts GERMAN SPECIES (test code = 83505) NEGATIVE G. VAGINALIS (test code = 04525) NEGATIVE T. VAGINALIS (test code = 45481) NEGATIVE VAGINAL PATHOGENS DNA [id number] 00:00:00* Test Item Value Reference Range Interpretation Comme nts GERMAN SPECIES (test code = 47927) NEGATIVE G. VAGINALIS (test code = 28611) NEGATIVE T. VAGINALIS (test code = 71621) NEGATIVE Tashi F AustinVAGINAL PATHOGENS DNA [id number] 00:00:00* Test Item Value Reference Range Interpretation Comme nts GERMAN SPECIES (test code = 97281) NEGATIVE G. VAGINALIS (test code = 59076) NEGATIVE T. VAGINALIS (test code = 91242) NEGATIVE CULTURE, [id number] 00:00:00* Test Item Value Reference Range Interpretation Comme nts CULTURE, URINE (test code = 59604) SPECIMEN NUMBER: [id number] CULTURE, [id number] 00:00:00* Test Item Value Reference Range Interpretation Comme nts CULTURE, URINE (test code = 63167) SPECIMEN NUMBER: [id number] Tashi Marques AustinCULTURE, [id number] 00:00:00* Test Item Value Reference Range Interpretation Comme nts CULTURE, URINE (test code = 13169) SPECIMEN NUMBER: [id number] CULTURE, [id number] 00:00:00* Test Item Value Reference Range Interpretation Comme nts CULTURE, URINE (test code = 27455) SPECIMEN NUMBER: [id number] Tashi Rivero [id number] 00:00:00* Test Item Value Reference Range Interpretation Comme nts CULTURE, URINE (test code = 85489) SPECIMEN NUMBER: [id number] Tashi Rivero [id number] 00:00:00* Test Item Value Reference Range Interpretation Comme nts CULTURE, URINE (test code = 52105) SPECIMEN NUMBER: [id number] Tashi Rivero [id number] 00:00:00* Test Item Value Reference Range Interpretation Comme nts CULTURE, URINE (test code = 77801) SPECIMEN NUMBER: [id number] Tashi Rivero [id number] 00:00:00* Test Item Value Reference Range Interpretation Comme nts CULTURE, URINE (test code = 42118) SPECIMEN NUMBER: [id number] Tashi Rivero [id number] 00:00:00* Test Item Value Reference Range Interpretation Comme nts CULTURE, URINE (test code = 77176) SPECIMEN NUMBER: [id number] Tashi Rivero [id number] 00:00:00* Test Item Value Reference Range Interpretation Comme nts CULTURE, URINE (test code = 80616) SPECIMEN NUMBER: [id number] HERMELINDO [id number] 00:00:00* Test Item Value Reference Range Interpretation Comme nts CULTURE, URINE (test code = 97350) SPECIMEN NUMBER: [id number] Tashi Rivero [id number] 00:00:00* Test Item Value Reference Range Interpretation Comme nts CULTURE, URINE (test code = 81933) SPECIMEN NUMBER: [id number] CULTURE [id number] 00:00:00* Test Item Value Reference Range Interpretation Comme nts CULTURE, URINE (test code = 73072) SPECIMEN NUMBER: [id number] Tashi Rivero [id number] 00:00:00* Test Item Value Reference Range Interpretation Comme nts CULTURE, URINE (test code = 15942) SPECIMEN NUMBER: [id number] Notes Date/Time Note Provider Source Tashi Wilkes [facility]2025-03-25 14:28:54 Addended by: KRISTIN NORTON LVN on: 09/01/2024 02:28 PM Modules accepted: [facility] 14:28:29 [id number] 00:00:00 Tashi Booth [facility]2025-03-24 14:39:04 Yes please, so sorry! Thank you! [id number] 11:42:27 The medication called in, is this a compound if so [facility] does not make compounds Please call to verify Shailesh with [facility] Mayra GrossmarioBarnesville HospitalJchhas9889-17-17 10:34:27 Patient is requesting a refill for: tranexamic acid 650 mg tablet L/S: 06/02/[address] Macdonald [facility] [address] [place] [address] [place] 906395-01-04 20:00:48 Patient given printed and verbal discharge [...] ED steadily, in possession of all belongings. OR COUNSEL Dyan Garcia [place] 689495-01-04 17:15:[address] [place] [address]83-01-04 15:55:53 MD at bedside for consent [place] 25583-01-04 13:27:18 Maribell Ramirez is a 43 year [...] skin warm and dry, appropriate for color. OR COUNSEL [facility]:00:00 Tashi [facility]2024-10-25 00:00:00 Tashi [facility]2024-10-24 09:22:52 VM full and no mychart. If patient calls back Dr. Lamar has appts in [facility]. Tegan GrajedaBarnesville HospitalBcarfu2094-72-38 16:56:45 Maribell Ramirez is a 43 year old female Pt calling to request a [address] Lamar only. She can be reached at [phone] (home) Please advise. Angela WilliamBarnesville HospitalPeglpj3195-93-47 00:00:00 [facility]2024-08-23 00:00:00 [facility]2024-08-01 11:00:00 Addended by: KRISTINE SHI MD on: 01/18/2024 02:18 PM Modules accepted: Level of Service [facility]2024-07-11 00:00:00 [facility]2024-05-08 00:00:00 [facility]2024-04-24 00:00:00 [facility]
[2024-09-23 19:17] LABS: Absolute Basophils 0.1 K/uL (0-0.5); Absolute Eosinophils 0.1 K/uL (0-0.5); Absolute Lymphocytes (CBC) 1.7 K/uL (0.7-4.9); Absolute Monocytes 0.6 K/uL (0.1-1.3); Absolute Neutrophil 6.1 K/uL (1.8-8.0); Eosinophils % 1.4 % (0-4.4); Hematocrit 31.1 % (36.0-45.0); Hemoglobin 9.7 g/dL (12.0-15.0); Lymphocytes % 19.6 % (15.3-44.8); MCH 19.6 pg (27.0-35.0); MCHC 31.3 g/dL (32.0-36.0); MCV 62.5 fL (80-100); MPV 8.4 fL (7.6-11.3); Monocytes % 6.5 % (3.3-12.3); Neutrophils % 71.5 % (41.7-73.7); Nucleated Red Blood Cells % 0.1 % (0-0); Platelets 353 thou/uL (152-406); RBC Red Blood Cell Count 4.97 M/uL (3.86-4.86); Red Cell Distribution Width 18.4 % (12.1-15.2)
[2024-09-23 19:21] LABS: Specific Gravity 1.006 (1.005-1.030); Sqamous Epithelial None Seen /HPF (None Seen); Urine Bacteria None Seen /HPF (<20); Urine Bilirubin NEGATIVE (Negative); Urine Blood Negative (Negative); Urine Clarity Clear (Clear); Urine Color Colorless (Yellow); Urine Glucose NEGATIVE (Negative); Urine Ketones NEGATIVE (Negative); Urine Micro Reflex YN NO BILL MICROSCOPIC; Urine Nitrite NEGATIVE (Negative); Urine Protein NEGATIVE (Negative); Urine RBC <5 /HPF (None Seen); Urine Urobilinogen Normal (Normal); Urine WBC <5 /HPF (<5); Urine pH 6.5 (5.0-7.0)
[2024-09-23 19:22] LABS: Specific Gravity 1.006 (1.005-1.030)
[2024-09-23 19:35] LABS: Albumin 3.8 g/dL (3.4-5.0); Anion Gap 9.7 mEq/L (5.0-15.0); Bilirubin Total 0.3 mg/dL (0.2-1.0); Globulin 3.9 g/dL (2.3-3.5); Potassium 3.7 mEq/L (3.5-5.1); Protein, Total 7.7 g/dL (6.4-8.2)
--- NOTE | 2024-09-23 20:41 | RAD REPORT ---
EXAMINATION: CT ABDOMEN AND PELVIS WITH CONTRAST CLINICAL INDICATION: Abdominal pain. Right flank pain TECHNIQUE: CT abdomen and pelvis was performed, after the administration of 100 cc Isovue-300.. Sagit iram and coronal reconstructions were obtained. One or more of the following dose reduction techniques were used: Automated exposure control, adjustment of the mA and kV according to patient si ze, and iterative reconstruction. Unless otherwise specified, incidental findings do not require dedicated imaging follow-up. [id number]. Oral contrast was not given which limits evaluation of bowel and appendix. COMPARISON: .September 20, 2024 FINDINGS: Liver, spleen, pancreas, adrenals and kidneys appear unremarkable No evidence of diverticulitis. Normal appendix. Small umbilical hernia. 5.1 cm mass posterior to the uterus likely left ovary. It is unchanged. No significant free fluid. : IMPRESSION: 5.1 cm left ovarian cystic mass.. It probably is a benign cyst. Follow-up ultrasound in 3 months wally mmended for reevaluation
--- NOTE | 2024-09-23 20:50 | EDPHYS ---
Physician Documentation [facility] Name: Maribell Krishnamurthy Age: 44 yrs Sex: Female : 1980 Arrival Date: 09/23/2024 Time: 17:44 Bed 9 Private MD: ED Physician Shaw Porter HPI: 09/23 18:40 This 44 yrs old Female presents to ER via Ambulatory with complaints of sb4 Abnormal Lab Results. 18:40 Patient states that she has been experiencing UTI symptoms for several weeks now. She sb4 was initially treated by her PCP with 5 days of Macrobid and it did not resolve, was then treated with 7 days of ciprofloxacin, did not resolve. Was seen here 3 days ago, given 1 dose of IV Rocephin and given prescription for cefpodoxime. She was called today and notified that her urine culture was positive for ESBL. Patient states that her symptoms have improved, but she has had some pain in her right lower back. Denies any fever, chills, nausea, vomiting. 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 - Infectious Disease History:: Denies. - Social history:: Smoking status: Patient denies any tobacco usage or history of. ROS: 18:40 Constitutional: Negative for fever, chills, and weight loss, sb4 18:40 Back: Positive for flank pain, on the right, 18:40 : Positive for urinary symptoms, 18:40 All other systems are negative, Exam: 18:40 Constitutional: This is a well developed, well nourished patient who is awake, alert, sb4 and in no acute distress. Head/Face: Normocephalic, atraumatic. Eyes: Extra-ocular motions intact. Periorbital areas with no swelling, redness, or edema. ENT: Mucous membranes moist. Cardiovascular: Regular rate and rhythm with a normal S1 and S2. Respiratory: No increased work of breathing, no retractions or nasal flaring. Abdomen/GI: Soft, non-tender, no distension. Skin: Warm, dry with normal turgor. Normal color with no rashes, no lesions, and no evidence of cellulitis. Vital Signs: 18:14 BP 134 / 87; Pulse 83; Resp 15; Temp 98.7; Pulse Ox 98% ; Weight 68.04 kg; Height 5 ft. db 0 in. ; 18:14 Body Mass Index 29.29 (68.04 kg, 152.4 cm) db MDM: 18:03 Medical Screening Exam initiated sb4 09/24 00:15 Data reviewed: vital signs, nurses notes, lab test result(s), radiologic studies, I sb4 have discussed the patient's presentation/case with the attending Emergency Department Physician; and as a result, I will discharge patient. Counseling: I had a detailed discussion with the patient and/or guardian regarding the historical points, exam findings, and any diagnostic results supporting the discharge/admit diagnosis, lab results, radiology results, the need for outpatient follow up, for definitive care, to return to the emergency department if symptoms worsen or persist or if there are any questions or concerns that arise at home. 09/23 18:03 Order name: UAM; Complete Time: 19:25 sb4 09/23 18:38 Order name: CBC with Diff; Complete Time: 20:05 sb4 09/23 18:38 Order name: CMP; Complete Time: 19:36 sb4 09/23 18:38 Order name: Test, Urine; Complete Time: 19:25 sb4 09/23 18:38 Order name: CT Abd/Pelvis - IV Contrast Only; Complete Time: 20:45 sb4 09/23 18:38 Order name: IV Saline Lock; Complete Time: 19:23 sb4 09/23 18:38 Order name: Labs collected and sent; Complete Time: 19:23 sb4 Administered Medications: 09/23 21:07 Drug: Macrobid PO 100 mg PO once; administer with food Route: PO; jb4 21:08 Follow up: Response: Medication administered at discharge. jb4 Disposition Summary: 09/23/24 20:49 Discharge Ordered Notes: Location: Home sb4 Problem: new sb4 Symptoms: have improved sb4 Condition: Stable sb4 Diagnosis - UTI/ Urinary tract infection, site not specified - resolving sb4 Followup: sb4 - With: Emergency Department - When: As needed - Reason: Fever > 102 F, Worsening of condition Discharge Instructions: - Discharge Summary Sheet sb4 - Urinary Tract Infection, Adult, [id number] sb4 Forms: - Antibiotic Education sb4 - Patient Portal Instructions sb4 - Leadership Thank You Letter sb4 Prescriptions: - Macrobid 100 mg Oral Capsule - take 1 capsule ORAL route every 12 hours for 10 days; 20 capsule; Refills: 0, sb4 Product Selection Permitted Signatures: Dispatcher [employer] EDHaroon English, RN RN jb4 Re Isaac RN RN Suyapa Somers PA-C PAMakayla sb4 Corrections: (The following items were deleted from the chart) 18:04 18:03 Urinalysis W/Microscopic+U.LAB.BRZ ordered. EDMS EDMS 18:16 18:15 Allergies: PENICILLINS; db db 18:38 18:38 CBC+H.LAB.BRZ ordered. EDMS EDMS 18:38 18:38 COMPREHENSIVE METABOLIC PANEL+C.LAB.BRZ ordered. EDMS EDMS 18:38 18:38 Test, Urine+UC.LAB.BRZ ordered. EDMS EDMS
--- NOTE | 2024-09-23 20:50 | ER ---
Nurse's Notes [facility] Name: Maribell Krishnamurthy Age: 44 yrs Sex: Female : 1980 Arrival Date: 09/23/2024 Time: 17:44 Bed 9 Private MD: Diagnosis: UTI/ Urinary tract infection, site not specified-resolving Presentation: 09/23 18:14 Chief complaint: Patient states: STATES WAS TOLD TO COME BACK TO ER DUE TO ECOLI FOUND db IN URINE CULTURE. STATES SEEN 09/20. COMPLAINS HAS RIGHT LOWER BACK PAIN SINCE YESTERDAY GRADUALLY GETTING WORSE. Coronavirus screen: Client denies travel out of the [place] in the last 14 days. At this time, the client does not indicate any symptoms associated with coronavirus-19. Ebola Screen: Patient negative for fever greater than or equal to 101.5 degrees Fahrenheit, and additional compatible Ebola Virus Disease symptoms Patient denies exposure to infectious person. Patient denies travel to an Ebola-affected area in the 21 days before illness onset. No symptoms or risks identified at this time. Initial Sepsis Screen: Does the patient meet any 2 criteria? No. Patient's initial sepsis screen is negative. Does the patient have a suspected source of infection? No. Patient's initial sepsis screen is negative. Risk Assessment: Do you want to hurt yourself or someone else? Patient reports no desire to harm self or others. Onset of symptoms was September 22, 2024. 18:14 Method Of Arrival: Ambulatory db 18:14 Acuity: NUSRAT 3 db Triage Assessment: 18:15 General: Appears in no apparent distress. comfortable, Behavior is calm, cooperative. db Pain: Denies pain. Neuro: Level of Consciousness is awake, alert, obeys commands, Oriented to person, place, time, situation. Respiratory: Airway is patent Respiratory effort is even, unlabored, Respiratory pattern is regular, symmetrical. 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 - Infectious Disease History:: Denies. - Social history:: Smoking status: Patient denies any tobacco usage or history of. Screenin:20 [facility] ED Fall Risk Assessment (Adult) History of falling in the last 3 months, jb4 including since admission No falls in past 3 months (0 pts) Confusion or Disorientation No (0 pts) Intoxicated or Sedated No (0 pts) Impaired Gait No (0 pts) Mobility Assist Device Used No (0 pt) Altered Elimination No (0 pt) Score/Fall Risk Level 0 - 2 = Low Risk Oriented to surroundings, Maintained a safe environment. Abuse screen: Denies threats or abuse. Nutritional screening: No deficits noted. Tuberculosis screening: No symptoms or risk factors identified. Assessment: 18:20 General: Appears in no apparent distress. comfortable, Behavior is calm, cooperative, jb4 appropriate for age. Pain: Complains of pain in right low back Pain does not radiate. Pain currently is 3 out of 10 on a pain scale. Neuro: Level of Consciousness is awake, alert, obeys commands, Oriented to person, place, time, situation. Cardiovascular: Patient's skin is warm and dry. Respiratory: Airway is patent Respiratory effort is even, unlabored, Respiratory pattern is regular, symmetrical. Derm: Skin is intact, Skin is pink, warm \T\ dry. 19:23 Reassessment: Patient appears in no apparent distress at this time. Patient and/or jb4 family updated on plan of care and expected duration. Pain level reassessed. Patient is alert, oriented x 3, equal unlabored respirations, skin warm/dry/pink. 21:09 Reassessment: Patient appears in no apparent distress at this time. Patient and/or jb4 family updated on plan of care and expected duration. Pain level reassessed. Patient is alert, oriented x 3, equal unlabored respirations, skin warm/dry/pink. Vital Signs: 18:14 BP 134 / 87; Pulse 83; Resp 15; Temp 98.7; Pulse Ox 98% ; Weight 68.04 kg; Height 5 ft. db 0 in. ; 18:14 Body Mass Index 29.29 (68.04 kg, 152.4 cm) db ED Course: 17:47 Patient arrived in ED. im 17:55 Suyapa Mathis PA-C [facility]. sb4 17:55 Shaw Porter MD is Attending Physician. sb4 18:01 Triage completed. db 18:15 Arm band placed on Patient placed in an exam room. db 18:20 Patient has correct armband on for positive identification. Bed in low position. Call jb4 light in reach. Side rails up X 1. Provided Education on: discharge instructions.. 18:44 Radiology exam delayed due to lab results not completed at this time. (HCG) jc4 (BUN/Creatinine) test not completed at this time. IV insertion attempt and/or patient not having appropriate IV at this time. 19:03 Haroon Morgan, RN is Primary Nurse. jb4 19:03 UAM Sent. jb4 19:03 Test, Urine Sent. jb4 19:20 Inserted saline lock: 20 gauge in right antecubital area, using aseptic technique. jb4 Blood collected. 19:23 CBC with Diff Sent. jb4 19:23 CMP Sent. jb4 20:23 CT Abd/Pelvis - IV Contrast Only In Process Unspecified. EDMS 21:11 No provider procedures requiring assistance completed. IV discontinued, intact, jb4 bleeding controlled, No redness/swelling at site. Pressure dressing applied. Administered Medications: 21:07 Drug: Macrobid PO 100 mg PO once; administer with food Route: PO; jb4 21:08 Follow up: Response: Medication administered at discharge. jb4 Medication: 18:20 VIS not applicable for this client. jb4 Outcome: 20:49 Discharge ordered by . sb4 21:11 Patient left the ED. jb4 Signatures: Dispatcher [employer] EDMS Haroon Morgan RN RN jb4 Re Isaac RN RN db Brown, Sophia, PA-C PA-C sb4 Yamel Rocha Justin jc4 Corrections: (The following items were deleted from the chart) 18:02 18:00 Chief complaint: Patient states: STATES HAD BLOOD DRAWN TODAY AT [facility] WAS db CALLED AND TOLD TO COME TO ED DUE TO POTASSIUM 6.4. 18:02 18:00 Coronavirus screen: Client denies travel out of the [place] in the last 14 days. At this time, the client does not indicate any symptoms associated with coronavirus-19. 18:02 18:00 Ebola Screen: Patient negative for fever greater than or equal to 101.5 degrees db Fahrenheit, and additional compatible Ebola Virus Disease symptoms Patient denies exposure to infectious person. Patient denies travel to an Ebola-affected area in the 21 days before illness onset. No symptoms or risks identified at this time. db 18:02 18:00 Initial Sepsis Screen: Does the patient meet any 2 criteria? No. Patient's db initial sepsis screen is negative. Does the patient have a suspected source of infection? No. Patient's initial sepsis screen is negative. db 18:02 18:00 Risk Assessment: Do you want to hurt yourself or someone else? Patient reports no db desire to harm self or others. db 18:02 18:00 Onset of symptoms was September 23, 2024 db db 18:02 18:00 Method Of Arrival: Ambulatory db db 18:02 18:00 BP 169 / 89; Pulse 88bpm; Resp 16bpm; Pulse Ox 100%; Temp 98.5F; 64.86 kg; Height db 5 ft. 1 in.; BMI: 27.0; db 18:02 18:00 Acuity: NUSRAT 3 db db 18:16 18:15 Allergies: PENICILLINS; db db
[2024-09-23] MEDS ORDERED: NITROFURAN MACRO 100 MG CAP PO ONE (20:52)
[2024-09-23 21:16] VITALS: BP 134/87; TEMP 98.7; O2SAT 98
== END 2024-09-23 21:11 | disposition home or self-care (01) ==
LOC: ER 17:44
DX: N39.0 Urinary tract infection, site not specified (principal)
CPT/HCPCS: 36415; 74177; 80053; 81001; 81025; 85025; Q9967